=== PATIENT | male | born 1935 | race Caucasian/White ===

== ENCOUNTER 2020-10-24 09:50 | Outpatient (REF) | payer MEDICARE, SELFPAY ==
--- NOTE | 2020-10-24 | US_ITS ---
EXAMINATION: US EXTRACRANIAL CAROTID DUPLEX, BILATERAL CLINICAL INFORMATION: This is an 85-year-old male with occlusion/stenosis of the carotid arteries. Carotid artery disease. COMPARISON: Comparison is made to a previous study dated 05/12/2018 which demonstrates bilateral 50-79% internal carotid artery stenoses. TECHNIQUE: Real-time ultrasound and Doppler techniques (integrating B-mode 2-D vascular images, Doppler spectral analysis and color-flow Doppler imaging) were utilized to interrogate the extracranial carotid arteries, the vertebral arteries and proximal subclavian arteries bilaterally. The degree of stenosis is determined by criteria similar to NASCET. FINDINGS: Right Side: 1. There is moderate atherosclerotic plaque seen in the bifurcation/proximal ICA region. 2. The common carotid artery PSV proximally is 103 cm/s and distally 80 cm/s. 3. The proximal internal carotid artery velocities are 137 cm/s systolic and 16 cm/s diastolic. 4. The proximal external carotid artery PSV is 280 cm/s. 5. The vertebral artery shows antegrade flow. 6. The subclavian artery waveforms are normal. Left Side: 1. There is moderate atherosclerotic plaque seen in the bifurcation/proximal ICA region. 2. The common carotid artery PSV proximally is 87 cm/s and distally 150 cm/s. 3. The proximal internal carotid artery velocities are 144 cm/s systolic and 31 cm/s diastolic. 4. The proximal external carotid artery PSV is 150 cm/s. 5. The vertebral artery shows antegrade flow. 6. The subclavian artery waveforms are stenotic with an elevated velocity of 257 cm/s. US/US carotid duplex BI IMPRESSION: 1. RIGHT: Moderate, hemodynamically significant stenosis of the proximal right internal carotid artery corresponding to a 50-79% stenosis by velocity criteria. 2. LEFT: Moderate, hemodynamically significant stenosis of the proximal left internal carotid artery corresponding to a 50-79% stenosis by velocity criteria. 3. There is no change in the category severity of internal carotid artery disease when compared to the previous study dated 05/12/2018. 4. Again noted is the hemodynamically significant stenosis in the right external carotid artery. 5. There appears to be a new left subclavian artery stenosis but both vertebral arteries are antegrade.
== END 2020-10-24 09:51 | disposition home or self-care (01) ==
LOC: HO.US 09:50
PROVIDERS: PCP Internal Medicine; Visit Provider Internal Medicine
DX: I65.23 Occlusion and stenosis of bilateral carotid arteries (principal)
CPT/HCPCS: 93880

== ENCOUNTER 2021-02-17 09:43 | Outpatient (REF) | payer MEDICARE, SELFPAY ==
--- NOTE | ~2021-02-17 | XR_ITS ---
EXAMINATION: XR CHEST CLINICAL INFORMATION: Shortness of breath. COMPARISON: 04/06/2020 TECHNIQUE: 2 views of the chest were obtained. FINDINGS: Stable cardiomediastinal silhouette. Mild bronchial wall thickening. No focal consolidation. No effusion or edema. No pneumothorax is seen. Left reverse total shoulder arthroplasty. Thoracic spine degeneration. XR/XR chest 2V IMPRESSION: Bronchial wall thickening can be seen with a small airway process such as asthma or atypical/viral infections. No lobar consolidation.
== END 2021-02-17 09:44 | disposition home or self-care (01) ==
LOC: HO.XRAY 09:43
PROVIDERS: PCP Internal Medicine; Visit Provider Internal Medicine
DX: R06.02 Shortness of breath (principal)
CPT/HCPCS: 71046

== ENCOUNTER → 2021-02-22 10:12 | Outpatient (BNVA) | payer MEDICARE, SELFPAY | PROVIDERS: PCP Internal Medicine; Referring Provider Internal Medicine; Visit Provider Internal Medicine Cardiovascular Disease | DX: R06.02 Shortness of breath (principal); I73.9 Peripheral vascular disease, unspecified | CPT/HCPCS: 93005; 99202 ==

== ENCOUNTER → 2021-02-23 10:11 | Outpatient (REF) | payer MEDICARE, SELFPAY ==
--- NOTE | 2021-02-23 10:17 | CA_ITS ---
Transthoracic Echocardiogram Patient (Last, First, Middle): Too Young M Gender: Male Date of : 1935 Age: 85 Procedure Date: 02/23/2021 Procedure Type: Transthoracic Echocardiogram Location: OP Height: 172.72 cm Weight: 74.84 kg BSA: 1.88 m2 Heart Rate: bpm BP: 122 / 58 mmHg Hydrometer Tester: BRANDIE Referring MD: John Gutierrez MD Symptoms: R06.02 - Shortness of breath Study Quality: Fair ECG Rhythm: Sinus Conclusions: - The left ventricular systolic function is normal. The visually estimated ejection fraction is between 60-65%. - There is mild mitral annular calcification. Findings Left Ventricle Normal left ventricular cavity size. There is normal left ventricular wall thickness. The left ventricular systolic function is normal. The visually estimated ejection fraction is between 60-65%. There is no evidence of regional wall motion abnormalities. E/E prime ratio is between 8 and 15 consistent with indeterminate filling pressures. Evidence suggests grade I (mild) diastolic dysfunction. Right Ventricle Normal right ventricular cavity size and systolic function. Atria The left atrium is normal in size. The right atrium is normal in size. Aortic Valve The aortic valve was not well visualized. There is no aortic valve stenosis. There is trace (trivial) aortic valve regurgitation. Mitral Valve There is mild mitral annular calcification. There is no mitral valve regurgitation. There is no mitral valve stenosis. Pulmonic Valve The pulmonic valve was not well visualized. Tricuspid Valve Normal tricuspid valve structure. There is trace tricuspid valve regurgitation. The pulmonary artery systolic pressure is normal. Great Vessels The aorta was not well visualized. Venous The inferior vena cava is normal in size and collapses greater than 50% with inspiration. Pericardium/Pleural There is no evidence of pericardial effusion. Prior Study Comparison No significant change compared to prior study dated: 06/26/2017. Measurements 2D Linear Measurements IVSd: 0.80 0.6-0.9/0.6-1.0 cm LVIDd: 3.91 3.9-5.3/4.2-5.9 cm LVIDd Index: 2.08 2.4-3.2/2.2-3.1 cm/m2 LVIDs: 1.85 2.0-3.6 cm LVPWd: 0.99 0.7-1.1 cm Ao Root: 2.80 2.1-3.5 cm LA Diam: 3.10 2.7-3.8/3.0-4.0 cm LAIDs Index: 1.65 1.5-2.3 cm/m2 LV Mass: 129.93 67-162/88-224 g LV Mass Index: 69.11 43-95/49-115 g/m2 LVOT Diam: 2.00 3.0+(-)1.3 cm 2D Systolic Function EF 4C: 71.90 >55% EF 2C: 51.60 >55% EF BiP: 62.50 >55% Mitral Valve MV Pk E: 0.86 MV PK A: 1.10 MV Decel Time: 303.00 E/A: 0.80 E'Lateral: 8.81 E'Medial: 5.87 E/E' Med: 14.60 E/E' Lat: 9.80 PHT: 89.00 MVA PHT: 2.47 Decel [place]: 2.84 Aortic Valve AoV Pk Camilo: 1.76 AoV Mn Camilo: 1.25 AoV VTI: 0.39 AoV Pk Grad: 12.00 Aov Mn Grad: 7.00 MONIQUE Cont.VTI: 2.10 AI Pk Camilo: 2.81 AI [place]: 1.07 LVOT LVOT Pk Camilo: 1.06 LVOT Mn Camilo: 0.82 LVOT VTI: 0.26 LVOT Pk Grad: 4.00 LVOT Mn Grad: 3.00 LVOT Diam: 2.00 LVOT Area: 3.14 Diastolic Function MV Pk E: 0.86 MV Pk A: 1.10 E/A: 0.80 E'Medial: 5.87 E/E' Med: 14.60 E' Laterial: 8.81 E/E' Lat: 9.80 Tricuspid Valve RA Press: 3.00 Great Vessels Aorta Ao Root-2D: 2.80 2.0-3.7 cm Ao Asc: 2.30 2.1-3.4 cm Updated in Other Vendor System with Status of Final Jose Christy MD electronically signed on 02/24/2021 3:53:42 PM with status of Final
== END ==
LOC: HO.CARD 10:11
PROVIDERS: Visit Provider Internal Medicine Cardiovascular Disease
DX: R06.02 Shortness of breath (principal)
CPT/HCPCS: 93306

== ENCOUNTER → 2021-03-03 08:22 | Outpatient (REF) | payer MEDICARE, SELFPAY ==
--- NOTE | ~2021-03-03 | NM_ITS ---
Lexiscan Myocardial perfusion study Indication: Shortness of breath, fatigue, assess for coronary disease and ischemia Technique: The patient was brought in for a Lexiscan perfusion study on 03/03/2021 and was injected 0.4 mg of Lexiscan intravenously. Within a minute of this injection 17 mCi of sestamibi was given intravenously. Images were obtained using the SPECT gamma camera interlaced with the gating device. Images were obtained in supine position. Resting perfusion study was performed on 03/06/2021. Patient was administered 25 mCi of sestamibi intravenously at rest. Images were then obtained in supine position. Total DLP 98mGy-cm. Images were processed with the software and compared side to side in short axis, horizontal long axis and vertical long axis views. Findings: Raw acquisition was reviewed. Both arms by the patient's side. The stress perfusion study showed no significant perfusion abnormality. Both uncorrected as well as CT attenuation corrected images were reviewed. The gated study shows normal LV systolic function with calculated LVEF of 66%. LV cavity is normal in size. The gated study shows normal wall thickening and contraction of segments. Resting study shows no significant perfusion abnormality. Gating at rest reveals normal wall motion with ejection fraction at 61%. The findings are consistent with no reversible or fixed perfusion abnormality. MI/NM cardiolite stress test Impression: 1. Myocardial perfusion imaging study shows normal myocardial perfusion. No evidence of any ischemia or infarction. 2. Gated LVEF is 66% during stress and 61% during rest. 3. Transient ischemic dilatation not present. EKG component of the test reported separately.
--- NOTE | 2021-03-03 08:30 | CA_ITS ---
Acquisition Time: 2021-03-03 08:43:34 Total Exercise Time: 00:02:00 Test Indications: Dyspnea Medications: ASA ATORVASTATIN CITALOPRAM LISINOPRIL OMEPRAZOLE Protocol: LEXISCAN Max HR: 088 BPM 64% of Pred: 136 BPM Max BP: 124/078 mmHG Max Work Load: 1.0 METS Pharmacological stress test using Lexiscan while sitting and kicking his feet. Pt tolerated well, denies any anginal sx. EKG without arrhythmias, non-diagnostic for ischemia. Nuclear images to follow. Normotensive response to test. Test reviewed with Dr. Escalona. Referred By: John Gutierrez Overread By: Karla Ann NP
== END ==
LOC: HO.CARD 08:22
PROVIDERS: Visit Provider Internal Medicine Cardiovascular Disease
DX: R07.9 Chest pain, unspecified (principal); R06.02 Shortness of breath
CPT/HCPCS: 78452; 93016; 93017; 93018; J0280; J2785

== ENCOUNTER 2021-03-30 11:01 | Outpatient (REF) | payer MEDICARE, SELFPAY ==
[2021-03-30 11:29] LABS: Estimated Average Glucose 126 mg/dL
[2021-03-30 12:06] LABS: Alanine Aminotransferase 12 U/L (0-40); Albumin Level 4.1 g/dL (3.5-5.0); Alkaline Phosphatase 101 U/L (39-117); Aspartate Amino Transferase 20 U/L (5-37); Bilirubin Direct 0.3 mg/dL (0.0-0.5); Bilirubin Total 0.6 mg/dL (0.0-1.0); Cholesterol 123 mg/dL; Glucose Fasting 115 mg/dL (60-99); HDL Cholesterol 46 mg/dL; LDL Cholesterol Calculated 66 mg/dl; Total Protein 6.8 g/dL (6.5-8.0); Triglycerides 57 mg/dL
[2021-03-30 12:25] LABS: Reflex LDLD? No
== END 2021-03-30 11:02 | disposition home or self-care (01) ==
LOC: HO.LNP 11:01
PROVIDERS: Visit Provider Internal Medicine
DX: Z13.89 Encounter for screening for other disorder (principal)
CPT/HCPCS: 80061; 80076; 82947; 83036

== ENCOUNTER 2021-03-30 13:25 | Outpatient (REF) | payer MEDICARE, SELFPAY ==
--- NOTE | ~2021-03-30 | US_ITS ---
EXAMINATION: US DOPPLER LOWER EXTREMITY ARTERIAL DUPLEX BILATERAL CLINICAL INFORMATION: Coronary artery disease. COMPARISON: None TECHNIQUE: Grayscale, color Doppler, spectral Doppler evaluation of the bilateral lower extremity arteries. FINDINGS: RIGHT: Multifocal atherosclerosis. Mid SFA collaterals are seen on the right. Common femoral: Mild stenosis. PSV 275 centimeters per second. Triphasic waveform. Deep femoral: Moderate stenosis. PSV 233 centimeters per second. Biphasic waveform. Proximal superficial femoral: Severe stenosis. PSV 684 centimeters per second. Monophasic waveform. Mid superficial femoral: Moderate stenosis. PSV 210 centimeters per second. Monophasic waveform. Distal superficial femoral: Moderate stenosis. PSV 70 centimeters per second. Monophasic waveform. Popliteal: PSV 247 centimeters per second. Monophasic waveform. Posterior tibial: PSV 30 centimeters per second. Monophasic waveform. LEFT: Multifocal atherosclerosis. Common femoral: Mild stenosis PSV 164 centimeters per second. Triphasic waveform. Deep femoral: Moderate stenosis. PSV 254 centimeters per second. Monophasic waveform. Proximal superficial femoral: Severe stenosis. PSV 649 centimeters per second. Monophasic waveform. Mid superficial femoral: Moderate stenosis. PSV 281 centimeters per second. Monophasic waveform. Distal superficial femoral: PSV 94 centimeters per second. Monophasic waveform. Popliteal: PSV 119 centimeters per second. Monophasic waveform. Posterior tibial: PSV 29 centimeters per second. Monophasic waveform. US/US arterial duplex LE IMPRESSION: Hemodynamically significant SFA disease bilaterally.
== END 2021-03-30 13:26 | disposition home or self-care (01) ==
LOC: HO.US 13:25
PROVIDERS: Visit Provider Internal Medicine Cardiovascular Disease
DX: I73.9 Peripheral vascular disease, unspecified (principal); I25.10 Atherosclerotic heart disease of native coronary artery without angina pectoris
CPT/HCPCS: 80061; 80076; 82947; 83036; 93925

== ENCOUNTER → 2021-04-03 14:13 | Outpatient (BNVA) | payer MEDICARE, SELFPAY | PROVIDERS: PCP Internal Medicine; Visit Provider Surgery Vascular Surgery | DX: I73.9 Peripheral vascular disease, unspecified (principal); I77.9 Disorder of arteries and arterioles, unspecified | CPT/HCPCS: 99202 ==

== ENCOUNTER → 2021-05-15 11:15 | Outpatient (BNVA) | payer MEDICARE, SELFPAY | PROVIDERS: PCP Internal Medicine; Visit Provider Internal Medicine Pulmonary Disease | DX: J44.9 Chronic obstructive pulmonary disease, unspecified (principal); R06.02 Shortness of breath; I10 Essential (primary) hypertension; Z87.891 Personal history of nicotine dependence; Z99.81 Dependence on supplemental oxygen | CPT/HCPCS: 99202 ==

== ENCOUNTER 2021-05-19 12:55 | Outpatient (REF) | payer MEDICARE, SELFPAY ==
--- NOTE | 2021-05-19 17:43 | PFT_ITS ---
INDICATION: Shortness of breath. SPIROMETRY: The FEV1 to FVC of 51% with an FEV1 of 1.49 L, which is 61% predicted, an FVC of 2.93 L, which is 84% predicted. No significant response to bronchodilators noted. Maximum voluntary ventilation 55% predicted. LUNG VOLUMES: Total lung capacity 87% predicted with a residual volume of 110% predicted. DIFFUSION CAPACITY: DLCO noted to be at 28% predicted. COMPARISON: Not available. INTERPRETATION: There is an obstructive ventilatory defect consistent with moderate COPD. No significant response to bronchodilators noted. Moderate decrease in maximum voluntary ventilation secondary to likely deconditioning. Lung volumes are within normal limits, although low normal. In addition to that, the patient does have a severe diffusion impairment likely secondary to emphysema and/or other parenchymal lung conditions. Pulmonary vascular conditions should also be considered. Clinical correlation warranted. MD KENNETH Garcia/MODL / [id number]
== END 2021-05-19 12:56 | disposition home or self-care (01) ==
LOC: HO.RESP 12:55
PROVIDERS: PCP Internal Medicine; Visit Provider Internal Medicine Pulmonary Disease
DX: R06.02 Shortness of breath (principal)
CPT/HCPCS: 94060; 94727; 94729

== ENCOUNTER → 2021-06-20 10:54 | Outpatient (BNVA) | payer MEDICARE, SELFPAY | PROVIDERS: PCP Internal Medicine; Visit Provider Internal Medicine Pulmonary Disease | DX: J44.9 Chronic obstructive pulmonary disease, unspecified (principal); Z99.81 Dependence on supplemental oxygen | CPT/HCPCS: 99212 ==

== ENCOUNTER 2021-07-20 10:11 | Outpatient (REF) | payer MEDICARE, SELFPAY ==
--- NOTE | ~2021-07-20 | CT_ITS ---
EXAMINATION: CT CHEST WITHOUT CONTRAST CLINICAL INFORMATION: Hypoxia and shortness of breath COMPARISON: Previous chest x-ray most recent January 2021 TECHNIQUE: Multidetector volumetric CT imaging of the chest was done. Axial MIP volume rendering provided. Sagittal and coronal reformatted images were obtained. This CT examination was performed using dose optimization techniques as appropriate, variously including the following: *Automated exposure control *Adjustment of mA and/or kV according to patient size (this includes techniques or standardized protocols for targeted exams where dose is matched to indication/reason for exam; i.e. extremities or head) *Use of iterative reconstruction technique DLP: 222 mGy-cm FINDINGS: LUNGS: There is mild biapical pleural and parenchymal scarring and calcification. There is evidence of mild interstitial lung disease with increased peripheral reticulation seen at the lung bases. The lungs are otherwise clear. No evidence of emphysema or bronchiectasis. No endobronchial or endotracheal lesion. MEDIASTINUM: Mild coronary artery calcification. The mediastinum is otherwise normal. PLEURA: There is no pleural effusion. No pleural mass or thickening. AXILLA: No lymphadenopathy. UPPER ABDOMEN: There are small calcifications in the upper pole of the right kidney questionable for vascular calcifications versus small stones. OSSEOUS STRUCTURES: There are degenerative changes of the spine. There is a left shoulder replacement. CT/CT chest wo con IMPRESSION: Mild peripheral interstitial lung disease at the lung bases.
== END 2021-07-20 10:12 | disposition home or self-care (01) ==
LOC: HO.CT 10:11
PROVIDERS: PCP Internal Medicine; Visit Provider Internal Medicine Pulmonary Disease
DX: R09.02 Hypoxemia (principal); R06.02 Shortness of breath
CPT/HCPCS: 71250

== ENCOUNTER → 2021-08-01 13:37 | Outpatient (BNVA) | payer MEDICARE, SELFPAY | PROVIDERS: PCP Internal Medicine; Visit Provider Internal Medicine Pulmonary Disease ==

== ENCOUNTER 2021-10-02 10:13 | Outpatient (REF) | payer MEDICARE, SELFPAY ==
[2021-10-02 10:16] LABS: MANUAL DIFF FLAG NO
[2021-10-02 10:55] LABS: Basophils Absolute Auto 0.1 X10*3/uL (0.0-0.2); Basophils Percent Auto 0.9 % (0-2); Eosinophils Absolute Auto 0.8 X10*3/uL (0.0-0.4); Eosinophils Percent Auto 8.9 % (0-4); Hematocrit 36.1 % (42.0-52.0); Hemoglobin 10.5 g/dl (14.0-18.0); Imm Gran Abs Auto 0.02 X10*3/uL (0.00-0.03); Imm Gran Pct Auto 0.2 % (0.0-0.4); Lymphocytes Absolute Auto 1.6 X10*3/uL (1.2-4.9); Lymphocytes Percent Auto 17.2 % (20-40); Mean Corpuscular HGB Conc 29.1 g/dl (31.0-36.0); Mean Corpuscular Hemoglobin 24.2 pg (27.0-33.0); Mean Corpuscular Volume 83.4 fL (80.0-98.0); Mean Platelet Volume 11.7 fL (9.4-12.4); Monocytes Absolute Auto 0.8 X10*3/uL (0.1-1.2); Monocytes Percent Auto 8.9 % (2-11); Neutrophils Absolute Auto 5.8 x10*3/uL (2.0-8.3); Neutrophils Percent Auto 63.9 % (45-73); Platelet Count 245 X10*3/uL (160-400); Red Blood Count 4.33 X10*6/uL (4.60-5.80); Red Cell Distribution Width 14.5 % (11.0-16.0); White Blood Count 9.1 X10*3/uL (4.8-10.8)
[2021-10-02 11:04] LABS: Estimated Average Glucose 131 mg/dL; Hemoglobin A1c % 6.2 %
[2021-10-02 11:18] LABS: Alanine Aminotransferase 13 U/L (0-40); Alkaline Phosphatase 84 U/L (39-117); Anion Gap 11 (12-20); Aspartate Amino Transferase 18 U/L (5-37); Bilirubin Total 0.5 mg/dL (0.0-1.0); Blood Urea Nitrogen 20 mg/dL (9-16); Calcium 9.2 mg/dL (8.4-10.2); Carbon Dioxide 23 mmol/L (22-29); Chloride 110 mmol/L (96-108); Cholesterol 113 mg/dL; Estimated Glomerular Filt Rate 43; Glucose Fasting 104 mg/dL (60-99); HDL Cholesterol 39 mg/dL; LDL Cholesterol Calculated 62 mg/dl; Potassium 4.3 mmol/L (3.3-5.1); Sodium 140 mmol/L (135-145); Total Protein 6.8 g/dL (6.5-8.0); Triglycerides 61 mg/dL
[2021-10-02 11:46] LABS: PSA,Total (Free>4and<10) 0.82 ng/mL (0.00-4.00); Reflex LDLD? No
[2021-10-02 15:51] LABS: Iron 27 mcg/dL (45-160); Percent Iron Saturation 9 % (15-50); Total Iron Binding Capacity 314 mcg/dL (228-428); Unsaturated Iron Binding 287 ug/dL
== END 2021-10-02 10:14 | disposition home or self-care (01) ==
LOC: HO.LNP 10:13
PROVIDERS: PCP Internal Medicine; Visit Provider Internal Medicine
DX: Z12.5 Encounter for screening for malignant neoplasm of prostate (principal); D64.9 Anemia, unspecified; I10 Essential (primary) hypertension; R73.03 Prediabetes; E78.00 Pure hypercholesterolemia, unspecified
CPT/HCPCS: 80053; 80061; 83036; 83540; 84153; 85025

== ENCOUNTER 2022-04-10 11:00 | Outpatient (REF) | payer MEDICARE, SELFPAY ==
[2022-04-10 13:06] LABS: Alanine Aminotransferase 12 U/L (0-40); Alkaline Phosphatase 81 U/L (39-117); Aspartate Amino Transferase 17 U/L (5-37); Bilirubin Direct 0.3 mg/dL (0.0-0.5); Bilirubin Total 0.5 mg/dL (0.0-1.0); Cholesterol 117 mg/dL; Glucose Fasting 97 mg/dL (60-99); HDL Cholesterol 46 mg/dL; LDL Cholesterol Calculated 61 mg/dl; Total Protein 6.9 g/dL (6.5-8.0); Triglycerides 53 mg/dL
[2022-04-10 13:47] LABS: Estimated Average Glucose 131 mg/dL; Hemoglobin A1c % 6.2 %
[2022-04-10 13:49] LABS: Reflex LDLD? No
== END 2022-04-10 11:01 | disposition home or self-care (01) ==
LOC: HO.LNP 11:00
PROVIDERS: PCP Internal Medicine; Visit Provider Internal Medicine
DX: E78.00 Pure hypercholesterolemia, unspecified (principal); R73.03 Prediabetes
CPT/HCPCS: 80061; 80076; 82947; 83036

== ENCOUNTER 2022-04-17 14:55 | Outpatient (REF) | payer MEDICARE, SELFPAY ==
[2022-04-17 15:43] LABS: COVID-19 Test Negative (Negative)
== END 2022-04-17 14:56 | disposition home or self-care (01) ==
LOC: HO.LAB 14:55
PROVIDERS: Visit Provider Internal Medicine
DX: Z20.822 Contact with and (suspected) exposure to COVID-19 (principal)
CPT/HCPCS: 87635; C9803

== ENCOUNTER 2022-05-15 14:12 | Outpatient (REF) | payer MEDICARE, SELFPAY ==
--- NOTE | ~2022-05-15 | XR_ITS ---
EXAMINATION: XR CERVICAL SPINE CLINICAL INFORMATION: Neck pain COMPARISON: None TECHNIQUE: 3 views of the cervical spine were obtained. FINDINGS: No acute fracture or subluxation. Vertebral body heights are maintained. Slight anterolisthesis of C3 on C4 and C4 on C5, appearing degenerative. Lamina otherwise maintained. There is vertebral body osseous fusion at C5-C6. There is disc space narrowing of C6-C7. Endplate osteophytes are present with facet arthropathy. The atlantoaxial joint is well aligned. The dens is intact. The prevertebral soft tissues are unremarkable. The lung apices are clear. XR/XR cervical spine 3V IMPRESSION: Moderate degenerative changes of the cervical spine.
== END 2022-05-15 14:13 | disposition home or self-care (01) ==
LOC: HO.XRAY 14:12
PROVIDERS: PCP Internal Medicine; Visit Provider Internal Medicine
DX: M54.2 Cervicalgia (principal)
CPT/HCPCS: 72040

== ENCOUNTER → 2022-06-12 13:55 | Outpatient (BNVA) | payer MEDICARE, SELFPAY | PROVIDERS: PCP Internal Medicine; Visit Provider Internal Medicine | DX: J44.9 Chronic obstructive pulmonary disease, unspecified (principal); Z99.81 Dependence on supplemental oxygen; Z79.899 Other long term (current) drug therapy; Z79.01 Long term (current) use of anticoagulants | CPT/HCPCS: 99212 ==

== ENCOUNTER → 2022-08-27 10:00 | Outpatient (REF) | payer MEDICARE, SELFPAY ==
--- NOTE | ~2022-08-27 | NM_ITS ---
EXAMINATION: NM BONE SCAN OF THE WHOLE BODY CLINICAL INFORMATION: Malignant neoplasm of prostate. COMPARISON: The previous bone scan dated 01/25/2011 is available for comparison. Radiographs of the cervical spine dated 05/15/2022 and of the chest dated 06/29/2022 are available for comparison. CT scan of the chest dated 07/20/2021 is also available for comparison. TECHNIQUE: Multiple gamma scintillation camera images of the whole body were performed 2.75 hours following the intravenous administration of 27 mCi Tc-99m MDP. FINDINGS: In the head, no significant abnormalities are present. In the thoracic cage and upper extremities, there is mildly increased activity in the right sternoclavicular and right acromioclavicular joint and there is also mildly increased activity in the right glenohumeral articulation. A photopenic defect from a left shoulder prosthesis is noted and appears unremarkable. In the spine, a minimal thoracolumbar scoliosis is present with lumbar convexity to the left. In the pelvis, no significant abnormalities are present. In the lower extremities, there is mildly increased activity in the patellar compartments of both knees and faintly in the right greater femoral trochanter. There is also mildly increased activity in the right first metatarsophalangeal joint. No other definite bony abnormalities are noted. The urinary bladder and faint visualization of both kidneys are noted. Compared to the previous bone scan dated 01/25/2011, the abnormalities in the knees, right foot and right greater femoral trochanter are new. The left shoulder prosthesis is also new. The remainder the scan is not significantly changed. [place] bone scan whole body IMPRESSION: A few mild nonspecific abnormalities are noted as described above and these are all likely arthritic or traumatic in etiology. None of these abnormalities is strongly suspicious for metastatic disease.
== END ==
LOC: HO.NUCMED 10:00
PROVIDERS: Visit Provider Internal Medicine
DX: C61 Malignant neoplasm of prostate (principal)
CPT/HCPCS: 78306; A9503

== ENCOUNTER 2022-10-04 11:04 | Outpatient (REF) | payer MEDICARE, SELFPAY ==
[2022-10-04 11:08] LABS: MANUAL DIFF FLAG NO
[2022-10-04 11:55] LABS: Basophils Absolute Auto 0.1 X10*3/uL (0.0-0.2); Eosinophils Absolute Auto 0.9 X10*3/uL (0.0-0.4); Eosinophils Percent Auto 7.8 % (0-4); Hematocrit 33.2 % (42.0-52.0); Hemoglobin 9.4 g/dl (14.0-18.0); Imm Gran Abs Auto 0.03 X10*3/uL (0.00-0.03); Imm Gran Pct Auto 0.3 % (0.0-0.4); Lymphocytes Absolute Auto 1.9 X10*3/uL (1.2-4.9); Lymphocytes Percent Auto 17.3 % (20-40); Mean Corpuscular HGB Conc 28.3 g/dl (31.0-36.0); Mean Corpuscular Hemoglobin 21.4 pg (27.0-33.0); Mean Corpuscular Volume 75.5 fL (80.0-98.0); Mean Platelet Volume 11.3 fL (9.4-12.4); Monocytes Percent Auto 8.6 % (2-11); Neutrophils Absolute Auto 7.3 x10*3/uL (2.0-8.3); Platelet Count 340 X10*3/uL (160-400); Red Cell Distribution Width 16.2 % (11.0-16.0); White Blood Count 11.2 X10*3/uL (4.8-10.8)
[2022-10-04 11:58] LABS: Appearance Urine Clear; Color Urine Yellow; Glucose Urine UA Negative (Negative); Leukocyte Esterase Urine Negative (Negative); Nitrite Urine Negative (Negative); PH 5.5 (5.0-9.0); Specific Gravity - Urine 1.025 (1.005-1.025); Urine Blood Negative (Negative); Urine Ketones Negative (Negative); Urine Protein Trace mg/dL (Neg-Trace)
[2022-10-04 12:04] LABS: Bacteria Urine None Seen (None Seen); Estimated Average Glucose 126 mg/dL; Hyaline Casts Urine 0-2 /LPF (0-2); RBC Urine 0-2 /HPF (0-2); Squamous Epithelial Cell Urine 0-2 /HPF (0-2); WBC Urine 0-5 /HPF (0-5)
[2022-10-04 12:42] LABS: Creatinine Urine 175.12 mg/dL; Microalbum/Creatinine Ratio Ur 34.2 ug/mg cr
[2022-10-04 14:04] LABS: Alanine Aminotransferase 13 U/L (0-40); Albumin Level 4.3 g/dL (3.5-5.0); Alkaline Phosphatase 70 U/L (39-117); Anion Gap 11 (12-20); Aspartate Amino Transferase 19 U/L (5-37); Bilirubin Total 0.6 mg/dL (0.0-1.0); Blood Urea Nitrogen 20 mg/dL (9-16); Calcium 9.2 mg/dL (8.4-10.2); Carbon Dioxide 23 mmol/L (22-29); Chloride 110 mmol/L (96-108); Cholesterol 125 mg/dL; Estimated Glomerular Filt Rate 47; Glucose Fasting 111 mg/dL (60-99); HDL Cholesterol 52 mg/dL; Iron 14 mcg/dL (45-160); LDL Cholesterol Calculated 65 mg/dl; Percent Iron Saturation 5 % (15-50); Potassium 4.4 mmol/L (3.3-5.1); Prostate Specific Antigen 1.04 ng/mL (<0.05-4.0); Sodium 140 mmol/L (135-145); Total Iron Binding Capacity 300 mcg/dL (228-428); Total Protein 6.8 g/dL (6.5-8.0); Triglycerides 44 mg/dL; Unsaturated Iron Binding 286 ug/dL
== END 2022-10-04 11:05 | disposition home or self-care (01) ==
LOC: HO.LNP 11:04
PROVIDERS: Visit Provider Internal Medicine
DX: Z12.5 Encounter for screening for malignant neoplasm of prostate (principal); D64.9 Anemia, unspecified; I10 Essential (primary) hypertension; E78.00 Pure hypercholesterolemia, unspecified; R73.03 Prediabetes
CPT/HCPCS: 80053; 80061; 81001; 82043; 83036; 83540; 84153; 85025

== ENCOUNTER 2022-10-23 15:48 | Outpatient (REF) | payer MEDICARE, SELFPAY ==
[2022-10-23 16:39] LABS: Iron 15 mcg/dL (45-160); Percent Iron Saturation 6 % (15-50); Total Iron Binding Capacity 253 mcg/dL (228-428); Unsaturated Iron Binding 238 ug/dL
== END 2022-10-23 15:49 | disposition home or self-care (01) ==
LOC: HO.LNP 15:48
PROVIDERS: Visit Provider Internal Medicine
DX: D50.9 Iron deficiency anemia, unspecified (principal)
CPT/HCPCS: 83540

== ENCOUNTER 2022-12-28 11:24 | Outpatient (REF) | payer MEDICARE, SELFPAY ==
[2022-12-28 11:29] LABS: MANUAL DIFF FLAG NO
[2022-12-28 11:53] LABS: Basophils Absolute Auto 0.1 X10*3/uL (0.0-0.2); Basophils Percent Auto 1.2 % (0-2); Eosinophils Absolute Auto 1.4 X10*3/uL (0.0-0.4); Hematocrit 41.7 % (42.0-52.0); Hemoglobin 12.2 g/dl (14.0-18.0); Imm Gran Abs Auto 0.03 X10*3/uL (0.00-0.03); Imm Gran Pct Auto 0.3 % (0.0-0.4); Lymphocytes Absolute Auto 1.5 X10*3/uL (1.2-4.9); Lymphocytes Percent Auto 13.5 % (20-40); Mean Corpuscular HGB Conc 29.3 g/dl (31.0-36.0); Mean Corpuscular Hemoglobin 23.6 pg (27.0-33.0); Mean Corpuscular Volume 80.7 fL (80.0-98.0); Monocytes Percent Auto 8.7 % (2-11); Neutrophils Absolute Auto 7.2 x10*3/uL (2.0-8.3); Neutrophils Percent Auto 64.3 % (45-73); Platelet Count 274 X10*3/uL (160-400); Red Blood Count 5.17 X10*6/uL (4.60-5.80); Red Cell Distribution Width 22.4 % (11.0-16.0); White Blood Count 11.2 X10*3/uL (4.8-10.8)
[2022-12-28 12:59] LABS: Blood Urea Nitrogen 14 mg/dL (9-16); Estimated Glomerular Filt Rate 44; Iron 41 mcg/dL (45-160); Percent Iron Saturation 15 % (15-50); Total Iron Binding Capacity 267 mcg/dL (228-428); Unsaturated Iron Binding 226 ug/dL
== END 2022-12-28 11:25 | disposition home or self-care (01) ==
LOC: HO.LNP 11:24
PROVIDERS: Visit Provider Internal Medicine
DX: Z01.812 Encounter for preprocedural laboratory examination (principal); D50.9 Iron deficiency anemia, unspecified
CPT/HCPCS: 82565; 83540; 84520; 85025

== ENCOUNTER 2023-01-12 14:51 | Emergency (ER) | payer MEDICARE, SELFPAY ==
--- NOTE | ~2023-01-12 | XR_ITS ---
EXAMINATION: XR CHEST CLINICAL INFORMATION: Heart palpitations COMPARISON: CT from 07/20/2021 TECHNIQUE: Frontal view of the chest was obtained. FINDINGS: Heart is normal in size. Chronic hyperexpansion of the lung parenchyma with interstitial prominence consistent with emphysema seen in the lung parenchyma. Hazy opacities seen in the left lung apex. XR/XR chest 1V IMPRESSION: Hazy opacity in the left upper lobe. Emphysema
--- NOTE | 2023-01-12 15:17 | ED_ITS ---
HPI - General Adult General Chief complaint: Arrhythmia/Palpitations <CHEYANNE Armijo - Last Filed: 01/12/23 15:23> Stated complaint: shaking <CHEYANNE Armijo - Last Filed: 01/12/23 15:23> Time Seen by Provider: 01/12/23 21:00 <CHEYANNE Armijo - Last Filed: 01/12/23 15:23> Source: patient <Manny Tapia MD - Last Filed: 01/12/23 21:42> Limitations: no limitations <Manny Tapia MD - Last Filed: 01/12/23 21:42> History of Present Illness HPI narrative: 87-year-old male with hypertension, carotid artery disease, COPD on chr onic oxygen, intermittent claudication presents with a sensation of vibration in his belly. Started today around 3:00 this afternoon. Describes the symptoms as mild to moderate. There is no clear relieving or exacerbating features. He denies any chest pain, new shortness breath, cough, increase in his chronic mucus production. He denied any swelling in his legs. Denied any palpitations or lightheadedness. The symptoms lasted approximately 1-2 hours. He came to the emergency department shortly after the onset of symptoms. He denies any fevers or chills. No urinary frequency, urgency or dysuria. No nausea, vomiting, diarrhea. Symptoms have since resolved. Otherwise, currently feels well. He is on oxygen at home. His normal oxygen saturation is similar around 92% on oxygen <Manny Tapia MD - Last Filed: 01/12/23 21:42> Related Data Home medications: Home Medications Medication Instructions Recorded Confirmed aspirin 81 mg tablet,delayed 81 mg PO DAILY 02/22/21 02/22/21 release (Adult Low Dose Aspirin) atorvastatin 10 mg tablet 10 mg PO DAILY 02/22/21 02/22/21 citalopram 20 mg tablet 20 mg PO DAILY 02/22/21 02/22/21 fluticasone propionate 50 1 spray intranasal DAILY 02/22/21 02/22/21 mcg/actuation nasal spray,suspension lisinopril 5 mg tablet 5 mg PO DAILY 02/22/21 02/22/21 omeprazole 20 mg capsule,delayed 20 mg PO DAILY 02/22/21 02/22/21 release apixaban 5 mg tablet (Eliquis) 5 mg PO BID 06/12/22 Previous Rx's Medication Instructions Recorded umeclidinium 62.5 mcg-vilanterol 1 inh inhalation DAILY 30 days #1 05/15/21 25 mcg/actuation powdr for ea inhalation (Anoro Ellipta) albuterol sulfate 90 mcg/actuation 2 puff inhalation Q4-6H PRN 06/12/22 aerosol inhaler (ProAir HFA) shortness of breath or wheezing 60 days #6.7 grams azithromycin 250 mg tablet 250 mg PO DAILY 4 days #4 tabs 01/12/23 <CHEYANNE Armijo - Last Filed: 01/12/23 15:23> Allergies/adverse reactions: Allergies Allergy/AdvReac Type Severity Reaction Status Date / Time No Known Allergies Allergy Unknown NOT Verified 06/12/22 14:19 APPLICABLE <CHEYANNE Armijo - Last Filed: 01/12/23 15:23> [facility] Past Medical History Medical History: Medical History Bilateral carotid artery disease HTN (hypertension) <CHEYANNE Armijo - Last Filed: 01/12/23 15:23> Surgical History: Surgical History Hx of hernia repair Hx of prostatectomy Hx of rotator cuff surgery <CHEYANNE Armijo - Last Filed: 01/12/23 15:23> Family History Family History: Family History Father CVD (cardiovascular disease) Mother No problems noted. <CHEYANNE Armijo - Last Filed: 01/12/23 15:23> Social History Social History: Social History Alcohol intake: former Patient Tobacco Use Status: Former Tobacco user Smoked in Last 30 Days: No Use of substances other than those prescribed or required for medical reasons: No Advance Directives: No Advance Directives Information Provided: No <CHEYANNE Armijo - Last Filed: 01/12/23 15:23> Physical Exam ED Vital Signs: Vital Signs - 24 hr 01/12/23 15:19 01/12/23 20:00 01/12/23 20:44 Temperature 97.7 F 97.9 F 97.9 F Pulse Rate 68 73 71 Respiratory Rate 18 16 19 Blood Pressure 169/74 H 192/76 H 159/70 H Pulse Oximetry 98 92 93 Oxygen Delivery Method Room Air Room Air Room Air BMI result Body Mass Index 23.6 <CHEYANNE Armijo - Last Filed: 01/12/23 15:23> Vital Signs - 24 hr 01/12/23 15:19 01/12/23 20:00 01/12/23 20:44 Temperature 97.7 F 97.9 F 97.9 F Pulse Rate 68 73 71 Respiratory Rate 18 16 19 Blood Pressure 169/74 H 192/76 H 159/70 H Pulse Oximetry 98 92 93 Oxygen Delivery Method Room Air Room Air Room Air BMI result Body Mass Index 23.6 <Manny Tapia MD - Last Filed: 01/12/23 21:42> GEN: Well developed, no acute distress, alert, oriented HEENT: Normocephalic, atraumatic, normal external ears, nose appears normal, no oropharyngeal edema or exudates Eyes: Normal to appearance Neck: Supple, no lymphadenopathy Respiratory: Talks in complete sentences, no respiratory distress, clear to auscultation bilaterally Cardiovascular: Regular rate and rhythm, no murmurs rubs or gallops Abdomen: Soft, nontender, nondistended, no guarding, no rebound Back: No CVA tenderness Extremities: No clubbing cyanosis or edema Neurologic: No focal neurologic deficits, cranial nerves 2-12 intact, strength is 5/5 bilaterally, gait normal Skin: No rash <Manny Tapia MD - Last Filed: 01/12/23 21:42> Course Course Course Narrative: RME--87yo M with PMHx HTN, CAD, COPD on home O2 2L c/o palpitations/heart fluttering and shakiness x [employer]. Denies CP, SOB, CHARLES, N/V Lungs CTA, ambulating with steady gait EKG, Labs, CXR ordered <CHYEANNE Armijo - Last Filed: 01/12/23 15:23> Reevaluation(s) Reevaluation #1: 87-year-old male presented with full a vibration sensation in this belly. Symptoms lasted shortly. There is no chest pain or other symptoms. His examination is unremarkable. A chest x-ray revealed a possible left upper lobe opacification. We will treat that with antibiotics. His oxygen saturations and blood pressure remaining good standing. Believe he can be discharged at this time with follow-up his primary care provider in the next few days. He was given instructions return for any worsening or concerning symptoms. I discussed all results with the patient including an elevated creatinine. He is unaware if this represents chronic kidney disease are new change. Na event, there was no further workup needed to address this at this time <Manny Tapia MD - Last Filed: 01/12/23 21:42> Time: 21:37 <Manny Tapia MD - Last Filed: 01/12/23 21:42> Medical Decision Making Medical Decision Making [facility] Narrative: 87-year-old male presents with of vibration sensation in his belly. His abdomen is soft, nontender, nondistended. He has no urinary complaints. Denies any chest pain, shortness breath, new cough, new mucus production. He otherwise feels well. Symptoms lasted for couple of hours and went away on their own. Etiology of his symptoms is not entirely clear but will perform a workup inclu ding laboratory analysis, chest x-ray, EKG to see if there is any evidence of arrhythmia or any other metabolic abnormality. <Manny Tapia MD - Last Filed: 01/12/23 21:42> Differential Diagnosis Differential Diagnoses: The differential diagnosis associated with the presentation includes (Cardiac arrhythmia, electrolyte abnormality, anemia, neuropathy, gas, IBS) <Manny Tapia MD - Last Filed: 01/12/23 21:42> Admission/Observation Consideration of admission/observation: Escalation of care including admission/observation considered <Manny Tapia MD - Last Filed: 01/12/23 21:42> Lab Data [facility] Lab Attestation statement: I reviewed the patient's lab results. <Manny Tapia MD - Last Filed: 0 01/12/23 21:42> Result Diagrams: 01/12/23 16:07 01/12/23 16:07 <CHEYANNE Armijo - Last Filed: 01/12/23 15:23> Labs: Lab Results 01/12/23 01/12/23 01/12/23 Range/Units 16:07 16:07 16:07 WBC 10.2 (4.8-10.8) X10*3/uL RBC 4.59 L (4.60-5.80) X10*6/uL Hgb 11.1 L (14.0-18.0) g/dl Hct 37.0 L (42.0-52.0) % MCV 80.6 (80.0-98.0) fL MCH 24.2 L (27.0-33.0) pg MCHC 30.0 L (31.0-36.0) g/dl RDW 19.8 H (11.0-16.0) % Plt Count 256 (160-400) X10*3/uL MPV 10.3 (9.4-12.4) fL Immature Gran % (Auto) 0.3 (0.0-0.4) % Neut % (Auto) 66.0 (45-73) % Lymph % (Auto) 13.5 L (20-40) % [place] % (Auto) 8.8 (2-11) % Eos % (Auto) 10.6 H (0-4) % Baso % (Auto) 0.8 (0-2) % Lymph # (Auto) 1.4 (1.2-4.9) X10*3/uL [place] # (Auto) 0.9 (0.1-1.2) X10*3/uL Eos # (Auto) 1.1 H (0.0-0.4) X10*3/uL Baso # (Auto) 0.1 (0.0-0.2) X10*3/uL Abs Immat Gran (auto) 0.03 (0.00-0.03) X10*3/uL Absolute Neuts (auto) 6.7 (2.0-8.3) x10*3/uL Absolute Nucleated RBC 0.000 (0.0-0.012) X10*3/uL Nucleated RBC % (auto) 0.0 (0.0-0.2) /100WBC PT 15.0 H (10.0-13.1) SEC INR 1.3 H (0.9-1.1) Sodium 139 (135-145) mmol/L Potassium 4.3 (3.3-5.1) mmol/L Chloride 107 (96-108) mmol/L Carbon Dioxide 23 (22-29) mmol/L Anion Gap 13 (12-20) BUN 15 (9-16) mg/dL Creatinine 1.25 (0.5-1.4) mg/dL Estim Creat Clear Calc 41.0 Estimated GFR 55 Random Glucose 106 (60-115) mg/dL Calcium 8.9 (8.4-10.2) mg/dL Magnesium 2.1 (1.6-2.6) mg/dL Total Bilirubin 0.4 (0.0-1.0) mg/dL Direct Bilirubin < 0.2 (0.0-0.5) mg/dL AST 18 (5-37) U/L ALT 11 (0-40) U/L Alkaline Phosphatase 81 (39-117) U/L Troponin I High Sens (<3.5-35.0) ng/L B-Natriuretic Peptide (<100) pg/mL Total Protein 6.7 (6.5-8.0) g/dL Albumin 4.0 (3.5-5.0) g/dL COVID-19 (YANICK) (Negative) COVID-19 Clin Com Influenza Type A (JACKIE) Influenza Type B (JACKIE) Influenza A & B Note 01/12/23 01/12/23 01/12/23 Range/Units 16:07 16:07 16:07 WBC (4.8-10.8) X10*3/uL RBC (4.60-5.80) X10*6/uL Hgb (14.0-18.0) g/dl Hct (42.0-52.0) % MCV (80.0-98.0) fL MCH (27.0-33.0) pg MCHC (31.0-36.0) g/dl RDW (11.0-16.0) % Plt Count (160-400) X10*3/uL MPV (9.4-12.4) fL Immature Gran % (Auto) (0.0-0.4) % Neut % (Auto) (45-73) % Lymph % (Auto) (20-40) % [place] % (Auto) (2-11) % Eos % (Auto) (0-4) % Baso % (Auto) (0-2) % Lymph # (Auto) (1.2-4.9) X10*3/uL [place] # (Auto) (0.1-1.2) X10*3/uL Eos # (Auto) (0.0-0.4) X10*3/uL Baso # (Auto) (0.0-0.2) X10*3/uL Abs Immat Gran (auto) (0.00-0.03) X10*3/uL Absolute Neuts (auto) (2.0-8.3) x10*3/uL Absolute Nucleated RBC (0.0-0.012) X10*3/uL Nucleated RBC % (auto) (0.0-0.2) /100WBC PT (10.0-13.1) SEC INR (0.9-1.1) Sodium (135-145) mmol/L Potassium (3.3-5.1) mmol/L Chloride (96-108) mmol/L Carbon Dioxide (22-29) mmol/L Anion Gap (12-20) BUN (9-16) mg/dL Creatinine (0.5-1.4) mg/dL Estim Creat Clear Calc Estimated GFR Random Glucose (60-115) mg/dL Calcium (8.4-10.2) mg/dL Magnesium (1.6-2.6) mg/dL Total Bilirubin (0.0-1.0) mg/dL Direct Bilirubin (0.0-0.5) mg/dL AST (5-37) U/L ALT (0-40) U/L Alkaline Phosphatase (39-117) U/L Troponin I High Sens 5.7 (<3.5-35.0) ng/L B-Natriuretic Peptide 60 (<100) pg/mL Total Protein (6.5-8.0) g/dL Albumin (3.5-5.0) g/dL COVID-19 (YANICK) (Negative) COVID-19 Clin Com Influenza Type A (JACKIE) Cancelled Influenza Type B (JACKIE) Cancelled Influenza A & B Note Cancelled 01/12/23 Range/Units 16:07 WBC (4.8-10.8) X10*3/uL RBC (4.60-5.80) X10*6/uL Hgb (14.0-18.0) g/dl Hct (42.0-52.0) % MCV (80.0-98.0) fL MCH (27.0-33.0) pg MCHC (31.0-36.0) g/dl RDW (11.0-16.0) % Plt Count (160-400) X10*3/uL MPV (9.4-12.4) fL Immature Gran % (Auto) (0.0-0.4) % Neut % (Auto) (45-73) % Lymph % (Auto) (20-40) % [place] % (Auto) (2-11) % Eos % (Auto) (0-4) % Baso % (Auto) (0-2) % Lymph # (Auto) (1.2-4.9) X10*3/uL [place] # (Auto) (0.1-1.2) X10*3/uL Eos # (Auto) (0.0-0.4) X10*3/uL Baso # (Auto) (0.0-0.2) X10*3/uL Abs Immat Gran (auto) (0.00-0.03) X10*3/uL Absolute Neuts (auto) (2.0-8.3) x10*3/uL Absolute Nucleated RBC (0.0-0.012) X10*3/uL Nucleated RBC % (auto) (0.0-0.2) /100WBC PT (10.0-13.1) SEC INR (0.9-1.1) Sodium (135-145) mmol/L Potassium (3.3-5.1) mmol/L Chloride (96-108) mmol/L Carbon Dioxide (22-29) mmol/L Anion Gap (12-20) BUN (9-16) mg/dL Creatinine (0.5-1.4) mg/dL Estim Creat Clear Calc Estimated GFR Random Glucose (60-115) mg/dL Calcium (8.4-10.2) mg/dL Magnesium (1.6-2.6) mg/dL Total Bilirubin (0.0-1.0) mg/dL Direct Bilirubin (0.0-0.5) mg/dL AST (5-37) U/L ALT (0-40) U/L Alkaline Phosphatase (39-117) U/L Troponin I High Sens (<3.5-35.0) ng/L B-Natriuretic Peptide (<100) pg/mL Total Protein (6.5-8.0) g/dL Albumin (3.5-5.0) g/dL COVID-19 (YANICK) Negative (Negative) COVID-19 Clin Com See Note Influenza Type A (JACKIE) Influenza Type B (JACKIE) Influenza A & B Note <CHEYANNE Armijo - Last Filed: 01/12/23 15:23> Lab Results 01/12/23 01/12/23 01/12/23 Range/Units 16:07 16:07 16:07 WBC 10.2 (4.8-10.8) X10*3/uL RBC 4.59 L (4.60-5.80) X10*6/uL Hgb 11.1 L (14.0-18.0) g/dl Hct 37.0 L (42.0-52.0) % MCV 80.6 (80.0-98.0) fL MCH 24.2 L (27.0-33.0) pg MCHC 30.0 L (31.0-36.0) g/dl RDW 19.8 H (11.0-16.0) % Plt Count 256 (160-400) X10*3/uL MPV 10.3 (9.4-12.4) fL Immature Gran % (Auto) 0.3 (0.0-0.4) % Neut % (Auto) 66.0 (45-73) % Lymph % (Auto) 13.5 L (20-40) % [place] % (Auto) 8.8 (2-11) % Eos % (Auto) 10.6 H (0-4) % Baso % (Auto) 0.8 (0-2) % Lymph # (Auto) 1.4 (1.2-4.9) X10*3/uL [place] # (Auto) 0.9 (0.1-1.2) X10*3/uL Eos # (Auto) 1.1 H (0.0-0.4) X10*3/uL Baso # (Auto) 0.1 (0.0-0.2) X10*3/uL Abs Immat Gran (auto) 0.03 (0.00-0.03) X10*3/uL Absolute Neuts (auto) 6.7 (2.0-8.3) x10*3/uL Absolute Nucleated RBC 0.000 (0.0-0.012) X10*3/uL Nucleated RBC % (auto) 0.0 (0.0-0.2) /100WBC PT 15.0 H (10.0-13.1) SEC INR 1.3 H (0.9-1.1) Sodium 139 (135-145) mmol/L Potassium 4.3 (3.3-5.1) mmol/L Chloride 107 (96-108) mmol/L Carbon Dioxide 23 (22-29) mmol/L Anion Gap 13 (12-20) BUN 15 (9-16) mg/dL Creatinine 1.25 (0.5-1.4) mg/dL Estim Creat Clear Calc 41.0 Estimated GFR 55 Random Glucose 106 (60-115) mg/dL Calcium 8.9 (8.4-10.2) mg/dL Magnesium 2.1 (1.6-2.6) mg/dL Total Bilirubin 0.4 (0.0-1.0) mg/dL Direct Bilirubin < 0.2 (0.0-0.5) mg/dL AST 18 (5-37) U/L ALT 11 (0-40) U/L Alkaline Phosphatase 81 (39-117) U/L Troponin I High Sens (<3.5-35.0) ng/L B-Natriuretic Peptide (<100) pg/mL Total Protein 6.7 (6.5-8.0) g/dL Albumin 4.0 (3.5-5.0) g/dL COVID-19 (YANICK) (Negative) COVID-19 Clin Com Influenza Type A (AJCKIE) Influenza Type B (JACKIE) Influenza A & B Note 01/12/23 01/12/23 01/12/23 Range/Units 16:07 16:07 16:07 WBC (4.8-10.8) X10*3/uL RBC (4.60-5.80) X10*6/uL Hgb (14.0-18.0) g/dl Hct (42.0-52.0) % MCV (80.0-98.0) fL MCH (27.0-33.0) pg MCHC (31.0-36.0) g/dl RDW (11.0-16.0) % Plt Count (160-400) X10*3/uL MPV (9.4-12.4) fL Immature Gran % (Auto) (0.0-0.4) % Neut % (Auto) (45-73) % Lymph % (Auto) (20-40) % [place] % (Auto) (2-11) % Eos % (Auto) (0-4) % Baso % (Auto) (0-2) % Lymph # (Auto) (1.2-4.9) X10*3/uL [place] # (Auto) (0.1-1.2) X10*3/uL Eos # (Auto) (0.0-0.4) X10*3/uL Baso # (Auto) (0.0-0.2) X10*3/uL Abs Immat Gran (auto) (0.00-0.03) X10*3/uL Absolute Neuts (auto) (2.0-8.3) x10*3/uL Absolute Nucleated RBC (0.0-0.012) X10*3/uL Nucleated RBC % (auto) (0.0-0.2) /100WBC PT (10.0-13.1) SEC INR (0.9-1.1) Sodium (135-145) mmol/L Potassium (3.3-5.1) mmol/L Chloride (96-108) mmol/L Carbon Dioxide (22-29) mmol/L Anion Gap (12-20) BUN (9-16) mg/dL Creatinine (0.5-1.4) mg/dL Estim Creat Clear Calc Estimated GFR Random Glucose (60-115) mg/dL Calcium (8.4-10.2) mg/dL Magnesium (1.6-2.6) mg/dL Total Bilirubin (0.0-1.0) mg/dL Direct Bilirubin (0.0-0.5) mg/dL AST (5-37) U/L ALT (0-40) U/L Alkaline Phosphatase (39-117) U/L Troponin I High Sens 5.7 (<3.5-35.0) ng/L B-Natriuretic Peptide 60 (<100) pg/mL Total Protein (6.5-8.0) g/dL Albumin (3.5-5.0) g/dL COVID-19 (YANICK) (Negative) COVID-19 Clin Com Influenza Type A (JACKIE) Cancelled Influenza Type B (JACKIE) Cancelled Influenza A & B Note Cancelled 01/12/23 Range/Units 16:07 WBC (4.8-10.8) X10*3/uL RBC (4.60-5.80) X10*6/uL Hgb (14.0-18.0) g/dl Hct (42.0-52.0) % MCV (80.0-98.0) fL MCH (27.0-33.0) pg MCHC (31.0-36.0) g/dl RDW (11.0-16.0) % Plt Count (160-400) X10*3/uL MPV (9.4-12.4) fL Immature Gran % (Auto) (0.0-0.4) % Neut % (Auto) (45-73) % Lymph % (Auto) (20-40) % [place] % (Auto) (2-11) % Eos % (Auto) (0-4) % Baso % (Auto) (0-2) % Lymph # (Auto) (1.2-4.9) X10*3/uL [place] # (Auto) (0.1-1.2) X10*3/uL Eos # (Auto) (0.0-0.4) X10*3/uL Baso # (Auto) (0.0-0.2) X10*3/uL Abs Immat Gran (auto) (0.00-0.03) X10*3/uL Absolute Neuts (auto) (2.0-8.3) x10*3/uL Absolute Nucleated RBC (0.0-0.012) X10*3/uL Nucleated RBC % (auto) (0.0-0.2) /100WBC PT (10.0-13.1) SEC INR (0.9-1.1) Sodium (135-145) mmol/L Potassium (3.3-5.1) mmol/L Chloride (96-108) mmol/L Carbon Dioxide (22-29) mmol/L Anion Gap (12-20) BUN (9-16) mg/dL Creatinine (0.5-1.4) mg/dL Estim Creat Clear Calc Estimated GFR Random Glucose (60-115) mg/dL Calcium (8.4-10.2) mg/dL Magnesium (1.6-2.6) mg/dL Total Bilirubin (0.0-1.0) mg/dL Direct Bilirubin (0.0-0.5) mg/dL AST (5-37) U/L ALT (0-40) U/L Alkaline Phosphatase (39-117) U/L Troponin I High Sens (<3.5-35.0) ng/L B-Natriuretic Peptide (<100) pg/mL Total Protein (6.5-8.0) g/dL Albumin (3.5-5.0) g/dL COVID-19 (YANICK) Negative (Negative) COVID-19 Clin Com See Note Influenza Type A (JACKIE) Influenza Type B (JACKIE) Influenza A & B Note <Manny Tapia MD - Last Filed: 01/12/23 21:42> Independent Interpretation I performed an independent interpretation of an: EKG (Sinus bradycardia heart rate 58, normal intervals, no acute ST elevations or depressions, nonspecific T-wave changes, possible LVH,) and Plain X-Ray (Chest: Mild patient left upper lobe, no pleural effusion, no CHF, no discrete masses) <Manny Tapia MD - Last Filed: 01/12/23 21:42> Radiology Impression Discussion of test interpretation with radiology: I have reviewed the radiologist's reading. ( XR/XR chest 1V IMPRESSION: Hazy opacity in the left upper lobe. Emphysema Dictated By:Maurice James MDSigned By:<Electronically signed by Maurice James MD in [place]>01/12/23 1649 DD/ 1620TD/TT: [employer] Professor:) <Manny Tapia MD - Last Filed: 01/12/23 21:42> External Record Review External record reviewed: Prior outpatient labs (Protocol: LEXISCAN Max HR: 088 BPM 64% of Pred: 136 BPM Max BP: 124/078 mmHG Max Work Load: 1.[address] ress test using Lexiscan while sitting and kicking his feet. Pt tolerated well, denies any anginal sx. EKG without arrhythmias, non-diagnostic for ischemia. Nuclear) <Manny Tapia MD - Last Filed: 01/12/23 21:42> EchocardiogramConclusions: - The left ventricular systolic function is normal.? The visually estimated ejection fraction is between 60-65%. ? - There is mild mitral annular calcification.? <Manny Tapia MD - Last Filed: 01/12/23 21:42> Prescription Management I considered prescription management with: Antibiotic <Manny Tapia MD - Last Filed: 01/12/23 21:42> Chronic Conditions Patient?s care impacted by: Hypertension and Other (COPD) <Manny Tapia MD - Last Filed: 01/12/23 21:42> Discharge Plan Discharge Clinical Impression: Abdominal symptoms, Left upper lobe pneumonia, Creatinine elevation <CHEYANNE Armijo - Last Filed: 01/12/23 15:23> Patient Disposition: Home, Self-Care <CHEYANNE Armijo - Last Filed: 01/12/23 15:23> Instructions: Acute Abdominal Pain (ED), Pneumonia (ED) <CHEYANNE Armijo - Last Filed: 01/12/23 15:23> Prescriptions: New azithromycin 250 mg tablet 250 mg PO DAILY 4 Days Qty: 4 0RF Rx Instructions: start on day 2 of therapy No Action lisinopril 5 mg tablet 5 mg PO DAILY citalopram 20 mg tablet 20 mg PO DAILY omeprazole 20 mg capsule,delayed release(DR/EC) 20 mg PO DAILY fluticasone propionate 50 mcg/actuation spray,suspension 1 spray intranasal DAILY atorvastatin 10 mg tablet 10 mg PO DAILY aspirin [Adult Low Dose Aspirin] 81 mg tablet,delayed release (DR/EC) 81 mg PO DAILY Anoro Ellipta 62.5-25 mcg/actuation blister with device 1 inh inhalation DAILY 30 Days Qty: 1 7RF Eliquis 5 mg tablet 5 mg PO BID albuterol sulfate [ProAir HFA] 90 mcg/actuation HFA aerosol inhaler 2 puff inhalation Q4-6H PRN (Reason: shortness of breath or wheezing) 60 Days Qty: 6.7 2RF <CHEYANNE Armijo - Last Filed: 01/12/23 15:23> Referrals: Chico Bojorquez MD [Primary Care Provider] - 2 days <CHEYANNE Armijo - Last Filed: 01/12/23 15:23>
[2023-01-12 15:19] VITALS: BP 169/74; PULSE 68; RESP 18; TEMP 36.5; O2SAT 98; BMI 23.6
--- NOTE | 2023-01-12 15:20 | ECG_ITS ---
Test Reason : ARRYTHMIA Blood Pressure : / mmHG Vent. Rate : 058 BPM Atrial Rate : 058 BPM P-R Int : 184 ms QRS Dur : 090 ms QT Int : 470 ms P-R-T Axes : -15 134 144 degrees QTc Int : 461 ms Sinus bradycardia Left posterior fascicular block Abnormal ECG When compared with ECG of 06-APR-2020 17:47, DE interval has decreased Left posterior fascicular block is now Present Referred By: Carin Leger Electronically Signed By:LORENA TELLO MD
[2023-01-12 16:14] LABS: MANUAL DIFF FLAG NO
[2023-01-12 16:16] LABS: Basophils Absolute Auto 0.1 X10*3/uL (0.0-0.2); Basophils Percent Auto 0.8 % (0-2); Eosinophils Absolute Auto 1.1 X10*3/uL (0.0-0.4); Eosinophils Percent Auto 10.6 % (0-4); Hemoglobin 11.1 g/dl (14.0-18.0); Imm Gran Abs Auto 0.03 X10*3/uL (0.00-0.03); Imm Gran Pct Auto 0.3 % (0.0-0.4); Lymphocytes Absolute Auto 1.4 X10*3/uL (1.2-4.9); Lymphocytes Percent Auto 13.5 % (20-40); Mean Corpuscular Hemoglobin 24.2 pg (27.0-33.0); Mean Corpuscular Volume 80.6 fL (80.0-98.0); Mean Platelet Volume 10.3 fL (9.4-12.4); Monocytes Absolute Auto 0.9 X10*3/uL (0.1-1.2); Monocytes Percent Auto 8.8 % (2-11); Neutrophils Absolute Auto 6.7 x10*3/uL (2.0-8.3); Platelet Count 256 X10*3/uL (160-400); Red Blood Count 4.59 X10*6/uL (4.60-5.80); Red Cell Distribution Width 19.8 % (11.0-16.0); White Blood Count 10.2 X10*3/uL (4.8-10.8)
[2023-01-12 16:21] LABS: INTERNATIONAL NORM RATIO 1.3 (0.9-1.1)
[2023-01-12 16:30] LABS: Alanine Aminotransferase 11 U/L (0-40); Alkaline Phosphatase 81 U/L (39-117); Anion Gap 13 (12-20); Aspartate Amino Transferase 18 U/L (5-37); Bilirubin Direct < 0.2 mg/dL (0.0-0.5); Bilirubin Total 0.4 mg/dL (0.0-1.0); Blood Urea Nitrogen 15 mg/dL (9-16); Calcium 8.9 mg/dL (8.4-10.2); Carbon Dioxide 23 mmol/L (22-29); Chloride 107 mmol/L (96-108); Estimated Glomerular Filt Rate 55; Glucose Random 106 mg/dL (60-115); Magnesium 2.1 mg/dL (1.6-2.6); Potassium 4.3 mmol/L (3.3-5.1); Sodium 139 mmol/L (135-145); Total Protein 6.7 g/dL (6.5-8.0)
[2023-01-12 16:34] LABS: COVID-19 Test Negative (Negative); IDNOW Serial# 08D9AD1C
[2023-01-12 16:35] LABS: B Type Natriuretic Peptide 60 pg/mL (<100)
[2023-01-12 16:40] LABS: Troponin-I High Sensitivity 5.7 ng/L (<3.5-35.0)
[2023-01-12 20:00] VITALS: BP 192/76; PULSE 73; RESP 16; TEMP 36.6; O2SAT 92
[2023-01-12 20:44] VITALS: BP 159/70; PULSE 71; RESP 19; TEMP 36.6; O2SAT 93
--- NOTE | 2023-01-12 20:45 | PC.NURSE ---
pt AOx3, walking with steady gait. pt reports that they are on oxygen at home intermittently PRN. Pt 92% on RA when resting, on exertion O2 drops to mid 80s. monitor technician on, NSR. tech drawing blood cultures. EKG done in triage
[2023-01-12 21:27] LABS: Lactic Acid 1.3 mmol/L (0.5-2.0)
[2023-01-12 21:37] LABS: Troponin-I High Sensitivity 6.6 ng/L (<3.5-35.0)
[2023-01-12] MEDS: Azithromycin 500 MG TABLET PO (21:59)
== END 2023-01-12 23:19 | disposition home or self-care (01) ==
PROVIDERS: Physician Assistant; Emergency Provider Emergency Medicine; PCP Internal Medicine
DX: R00.2 Palpitations (principal); J18.9 Pneumonia, unspecified organism; R79.89 Other specified abnormal findings of blood chemistry; Z20.822 Contact with and (suspected) exposure to COVID-19; I10 Essential (primary) hypertension; J44.9 Chronic obstructive pulmonary disease, unspecified; Z99.81 Dependence on supplemental oxygen; Z79.82 Long term (current) use of aspirin; Z79.02 Long term (current) use of antithrombotics/antiplatelets; Z79.01 Long term (current) use of anticoagulants; Z79.899 Other long term (current) drug therapy
CPT/HCPCS: 36415; 71045; 80048; 80076; 83605; 83735; 83880; 84484; 85025; 85610; 87040; 87635; 93005; 99283; 99285

== ENCOUNTER 2023-01-16 09:54 | Outpatient (REF) | payer MEDICARE, SELFPAY ==
--- NOTE | ~2023-01-16 | CT_ITS ---
EXAMINATION: CT ABDOMEN AND PELVIS WITH CONTRAST CLINICAL INFORMATION: Left lower quadrant pain. COMPARISON: None available. TECHNIQUE: Multidetector volumetric images were obtained from the superior aspect of the liver through the pubic symphysis following administration 85 mL of Omnipaque 350 intravenous contrast. Sagittal and coronal reformatted images were obtained on the technologist's workstation. Oral contrast: Yes This CT examination was performed using dose optimization techniques as appropriate, variously including the following: *Automated exposure control *Adjustment of mA and/or kV according to patient size (this includes techniques or standardized protocols for targeted exams where dose is matched to indication/reason for exam; i.e. extremities or head) *Use of iterative reconstruction technique DLP: 398 mGy-cm FINDINGS: LUNG BASES: Question mild peripheral interstitial disease at the lung bases. LIVER, GALLBLADDER, AND BILIARY TREE: The liver is normal in size, shape, and attenuation. There are several small low-attenuation lesions in the liver that are too small to definitively characterize but probably represent small cysts. Largest measures 4 mm in the lateral segment of the left lobe. No other focal hepatic lesion or biliary ductal dilatation is present. The gallbladder is unremarkable with no evidence of radiopaque gallstones, gallbladder wall thickening, or obvious pericholecystic inflammatory changes. PANCREAS: Small calcification in the body of the pancreas. The pancreas is otherwise normal. SPLEEN: Unremarkable. ADRENAL GLANDS: Unremarkable. KIDNEYS AND URETERS: The kidneys are normal in size, shape, and attenuation. 3 mm stone in the upper pole of the right kidney. Small cyst in the upper pole of the left kidney. No imaging followup recommended. BLADDER: Unremarkable. GASTROINTESTINAL TRACT: Mild diverticulosis. No evidence of diverticulitis. Stool throughout the colon questionable for constipation. The small and large bowel are otherwise unremarkable. The appendix is unremarkable. ABDOMINAL WALL: Small umbilical hernia containing fat. LYMPH NODES: Normal. VASCULAR: Atherosclerotic disease. 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 PELVIC VISCERA: Unremarkable. OSSEOUS STRUCTURES: Degenerative changes of the spine. CT/CT abdomen pelvis w IV con IMPRESSION: Mild diverticulosis of the colon and constipation. Small nonobstructing right renal stone. Fleischner guidelines were followed.
[2023-01-16] MEDS: iohexoL 350 MG/ML 100 ML INFUS..BTL IV (12:15)
== END 2023-01-16 09:55 | disposition home or self-care (01) ==
LOC: HO.CT 09:54
PROVIDERS: PCP Internal Medicine; Visit Provider Internal Medicine
DX: R10.32 Left lower quadrant pain (principal)
CPT/HCPCS: 74177; Q9967

== ENCOUNTER 2023-02-05 14:00 | Outpatient (REF) | payer MEDICARE, SELFPAY ==
--- NOTE | ~2023-02-05 | CT_ITS ---
EXAMINATION: CT CHEST WITH CONTRAST CLINICAL INFORMATION: Abnormal chest x-ray/hazy opacity, left upper lobe COMPARISON: Previous chest x-ray December [address] June 2021 TECHNIQUE: Multidetector volumetric CT imaging of the chest was obtained after the administration of 65 mL of Omnipaque 350 intravenous contrast without immediate adverse reactions. Axial MIP volume rendering provided. Sagittal and coronal reformatted images were obtained. This CT examination was performed using dose optimization techniques as appropriate, variously including the following: *Automated exposure control *Adjustment of mA and/or kV according to patient size (this includes techniques or standardized protocols for targeted exams where dose is matched to indication/reason for exam; i.e. extremities or head) *Use of iterative reconstruction technique DLP: 139 mGy-cm FINDINGS: LUNGS: Evaluation at the lung bases is limited due to artifact from respiratory motion. There is evidence of mild emphysema. There is mild biapical pleural and parenchymal scarring. There are increased peripheral interstitial markings seen in the lower lungs are questionable for interstitial lung disease. There are stable small right pulmonary nodules. These measure 3 mm in the right upper lobe, axial image 70 series 5, and superior segment, right lower lobe, axial image 70 series 5. These are stable. There is a new nodule that appears to be associated with airways disease in the left upper lobe measuring 4 mm, axial image 72 series 5. No evidence of pneumonia. MEDIASTINUM: Severe atherosclerotic disease. Normal heart size. Mild coronary artery and aortic valve calcification. No pericardial effusion. Small bilateral hilar or mediastinal lymph nodes. These appear increased from 2020 exam. No enlarged lymph nodes. Small left thyroid nodule. Based on patient age and size, no imaging follow-up recommended. PLEURA: There is no pleural effusion. No pleural mass or thickening. AXILLA: No lymphadenopathy. UPPER ABDOMEN: Small low-attenuation liver lesions suggestive of cysts. Small cyst in the upper pole of the left kidney. No imaging follow-up recommended. Small right renal stone. Atherosclerotic disease. OSSEOUS STRUCTURES: Left shoulder replacement. Degenerative changes of the spine. Extensive spondylosis with the addition. CT/CT chest w IV con IMPRESSION: Emphysema and interstitial lung disease. New 4 mm ground-glass attenuation left upper lobe nodule probably related to airways disease. Stable small right pulmonary nodules from 2020. Severe atherosclerotic disease. Small right renal stone. Fleischner guidelines were followed.
[2023-02-05] MEDS: iohexoL 350 MG/ML 100 ML INFUS..BTL IV (14:42)
== END 2023-02-05 14:01 | disposition home or self-care (01) ==
LOC: HO.CT 14:00
PROVIDERS: PCP Internal Medicine; Visit Provider Internal Medicine
DX: R93.89 Abnormal findings on diagnostic imaging of other specified body structures (principal)
CPT/HCPCS: 71260; Q9967

== ENCOUNTER 2023-02-07 11:02 | Outpatient (REF) | payer MEDICARE, SELFPAY ==
--- NOTE | ~2023-02-07 | XR_ITS ---
EXAMINATION: XR CHEST CLINICAL INFORMATION: Reason for Exam PNEUMONIA COMPARISON: Chest radiograph 01/12/2023, CT chest 02/05/2023 TECHNIQUE: 2 views of the chest FINDINGS: Status post reverse left shoulder arthroplasty. Slight increase in a minimal patchy right basilar airspace opacity which on prior CT chest appears to correspond to atelectasis. No pneumothorax or pleural effusion. Unchanged cardiomediastinal silhouette. XR/XR chest 2V IMPRESSION: Slight increase in a minimal patchy right basilar airspace opacity which on prior CT chest appears to correspond to atelectasis, though given minimally increased from prior superimposed infection or aspiration would be difficult to exclude. Recommend correlation with clinical symptoms.
== END 2023-02-07 11:03 | disposition home or self-care (01) ==
LOC: HO.XRAY 11:02
PROVIDERS: PCP Internal Medicine; Visit Provider Internal Medicine
DX: J18.9 Pneumonia, unspecified organism (principal)
CPT/HCPCS: 71046

== ENCOUNTER 2023-02-12 10:28 | Outpatient (REF) | payer MEDICARE, SELFPAY ==
[2023-02-12 12:58] LABS: Prostate Specific Antigen 0.85 ng/mL (<0.05-4.0)
== END 2023-02-12 10:29 | disposition home or self-care (01) ==
LOC: HO.LAB 10:28
PROVIDERS: PCP Internal Medicine; Visit Provider Physician Assistant Medical
DX: Z12.5 Encounter for screening for malignant neoplasm of prostate (principal); C61 Malignant neoplasm of prostate
CPT/HCPCS: 36415; 84153

== ENCOUNTER 2023-03-06 10:24 | Outpatient (REF) | payer MEDICARE, SELFPAY ==
--- NOTE | ~2023-03-06 | US_ITS ---
EXAMINATION: US EXTRACRANIAL CAROTID DUPLEX, BILATERAL CLINICAL INFORMATION: Carotid stenosis. COMPARISON: 10/24/2020 TECHNIQUE: Real-time ultrasound and Doppler techniques (integrating B-mode 2-D vascular images, Doppler spectral analysis and color-flow Doppler imaging) were utilized to interrogate the extracranial carotid arteries, the vertebral arteries and proximal subclavian arteries bilaterally. The degree of stenosis is determined by criteria similar to NASCET. FINDINGS: Right Side: 1. There is marked atherosclerotic plaque seen in the bifurcation/proximal ICA region. 2. The common carotid artery PSV proximally is 103 cm/s and distally 81 cm/s. 3. The proximal internal carotid artery velocities are 207 cm/s systolic and 22 cm/s diastolic. 4. The proximal external carotid artery PSV is 423 cm/s. Prior velocity was 280 cm/s. 5. The vertebral artery shows antegrade flow. 6. The subclavian artery waveforms are normal. Left Side: 1. There is [id number] atherosclerotic plaque seen in the bifurcation/proximal ICA region. 2. The common carotid artery PSV proximally is 71 cm/s and distally 148 cm/s. 3. The proximal internal carotid artery velocities are 169 cm/s systolic and 27 cm/s diastolic. 4. The proximal external carotid artery PSV is 225 cm/s. 5. The vertebral artery shows antegrade flow. 6. The subclavian artery waveforms are normal. US/US carotid duplex BI IMPRESSION: 1. RIGHT: Moderate, hemodynamically significant stenosis of the proximal right internal carotid artery corresponding to a 50-79% stenosis by velocity criteria. A severe right ECA stenosis is present. 2. LEFT: Moderate, hemodynamically significant stenosis of the proximal left internal carotid artery corresponding to a 50-79% stenosis by velocity criteria. A mild left ECA stenosis is present. 3. There is no change in the category/severity of disease when compared to the previous study dated 10/24/2020.
== END 2023-03-06 10:25 | disposition home or self-care (01) ==
LOC: HO.US 10:24
PROVIDERS: PCP Internal Medicine; Visit Provider Internal Medicine
DX: I65.23 Occlusion and stenosis of bilateral carotid arteries (principal)
CPT/HCPCS: 93880

== ENCOUNTER 2023-04-12 11:27 | Outpatient (REF) | payer MEDICARE, SELFPAY ==
[2023-04-12 12:01] LABS: Estimated Average Glucose 111 mg/dL; Hemoglobin A1c % 5.5 %
[2023-04-12 12:35] LABS: Alanine Aminotransferase 8 U/L (0-40); Alkaline Phosphatase 88 U/L (39-117); Aspartate Amino Transferase 17 U/L (5-37); Bilirubin Direct 0.3 mg/dL (0.0-0.5); Bilirubin Total 0.8 mg/dL (0.0-1.0); Cholesterol 109 mg/dL; Glucose Fasting 97 mg/dL (60-99); HDL Cholesterol 44 mg/dL; LDL Cholesterol Calculated 57 mg/dl; Total Protein 6.5 g/dL (6.5-8.0); Triglycerides 42 mg/dL
[2023-04-12 13:33] LABS: Reflex LDLD? No
== END 2023-04-12 11:28 | disposition home or self-care (01) ==
LOC: HO.LNP 11:27
PROVIDERS: Visit Provider Internal Medicine
DX: E78.00 Pure hypercholesterolemia, unspecified (principal); R73.03 Prediabetes
CPT/HCPCS: 80061; 80076; 82947; 83036

== ENCOUNTER 2023-05-08 10:36 | Outpatient (AMB) | payer MEDICARE, SELFPAY ==
--- NOTE | 2023-05-08 10:40 | A.OFFVIS_ITS ---
Intake Vital Signs 05/08/23 10:42 Weight 157 lb 10.088 oz BP 118/60 Blood Pressure Location Lt brachial Position Sitting Pulse 73 Pulse Source Pulse Oximeter Pulse Oximetry (%) 96 Oxygen Delivery Method Nasal Cannula Oxygen Flow Rate 2 Intake Visit Reasons: COPD Intake Note: uses O2 2 lpm with activity ([employer]) Allergies No Known Allergies Allergy (Unknown, Verified 05/08/23 10:47) NOT APPLICABLE Medication List - Last Reconciled 05/08/23 by Flor Haskins LPN albuterol sulfate 90 mcg/actuation (ProAir HFA) 2 puffs inhalation Q4-6H PRN 60 days apixaban (Eliquis) 5 mg PO BID aspirin (Adult Low Dose Aspirin) 81 mg PO DAILY atorvastatin 10 mg PO DAILY azithromycin 250 mg PO DAILY 4 days citalopram 20 mg PO DAILY fluticasone propionate 50 mcg/actuation 1 spray intranasal DAILY lisinopril 5 mg PO DAILY omeprazole 20 mg PO DAILY umeclidinium-vilanterol 62.5-25 mcg/actuation (Anoro Ellipta) 1 inh inhalation DAILY 30 days HPI COPD HPI Details Too is a pleasant 87 year old male, former 40+ pack-year smoker, quit 30 years prior with underlying 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 Today he presents for an acute visit. He reports over the past few days he has had a productive cough with increased sputum with white to yellow sputum and chest congestion. He denies any increased dyspnea, wheezing or chest tightness. He denies any fevers, chills or sick contacts. [facility] Medical History Bilateral carotid artery disease HTN (hypertension) Surgical History Hx of hernia repair Hx of prostatectomy Hx of rotator cuff surgery Family History Father CVD (cardiovascular disease) Mother No problems noted. Social History Alcohol intake: former Patient Tobacco Use Status: Former Tobacco user Review of Systems Const Denies chills, Denies excessive sweating, Denies fever(s), Denies headache(s) and Denies night sweats Eyes Denies dry eyes, Denies irritation and Denies itchy eyes ENT Reports Normal hearing present, Denies headache(s), Denies nasal congestion, Denies nasal discharge, Denies post nasal drip and Denies sore throat Card Denies chest pain, Denies chest pain at rest, Denies chest pain with activity, Denies claudication, Denies leg edema, Denies dyspnea, Denies dyspnea on exertion, Denies orthopnea and Denies paroxysmal nocturnal dyspnea Resp Denies pain on inspiration, Denies pain with cough, Denies dyspnea, Denies dyspnea on exertion, Denies stridor and Denies wheezing Musc Denies myalgias Neuro Reports Normal hearing present and Denies headache(s) Endo Denies excessive sweating Denis/Lymph Denies lymphadenopathy Aller/Immun Denies itchy eyes, Denies seasonal rhinorrhea and Denies wheezing Physical Exam Vital Signs: Last Vital Signs Pulse 73 05/08/23 10:42 BP 118/60 05/08/23 10:42 Pulse Ox 96 05/08/23 10:42 Oxygen Delivery Method Nasal Cannula 05/08/23 10:42 Oxygen Flow Rate 2 05/08/23 10:42 Const General: cooperative, healthy appearing, comfortable, no acute distress, well developed and alert Orientation/consciousness: patient oriented x3 HEENT Head: Yes normal to inspection, Yes normocephalic and Yes atraumatic Ears: hearing grossly normal bilaterally and external ears normal Eyes General: appearance normal, both eyes and all related structures Eyelids: Yes eyelids normal Sclerae: sclerae normal EOM: EOMs intact bilaterally Neck Neck: Yes normal visual inspection and Yes no lymphadenopathy Lymphatic: no lymphadenopathy noted Chest Chest palpation & inspection: normal inspection of the chest Resp Effort & Inspection: normal respiratory effort, able to speak in complete sentences, no audible wheezes, no cough, no stridor, not tachypneic, no tripod positioning and no use of accessory muscles Auscultation: no crackles, no rhonchi, no wheezes and diminished lung sounds Cardio Jugular venous distension: no JVD Rate: regular rate Rhythm: regular rhythm Skin Other: warm, dry General skin exam: no rashes or lesions noted Neuro General: patient oriented x3 Cranial nerves: Yes Normal hearing present Cognition (Neuro): normal cognition Gait exam (Neuro): Normal gait present Extrem General: Yes normal to inspection, Yes capillary refill normal, Yes no clubbing, cyanosis or edema and Yes no pedal edema Psych Appearance: grossly normal and well kempt Speech and movement: Normal speech and movement present and Clear speech present Affect: normal affect Attitude: cooperative Thought process: Normal thought process present Thought content: Normal thought content present Insight: Good insight present (Psych) Judgement: Good judgement present (Psych) Assessment & Plan Assessment & Plan (1) COPD (chronic obstructive pulmonary disease): Code(s): J44.9 - Chronic obstructive pulmonary disease, unspecified (2) Supplemental oxygen dependent: Code(s): Z99.81 - Dependence on supplemental oxygen Plan: Patient aware to maintain an oxygen saturation of 89-93% Plan Will treat bronchitic symptoms with doxycycline. He is aware to contact the office if symptoms do not improve. All questions were answered and patient is in agreement of plan. Will schedule follow up with Dr. Urrutia in 3-6 months or sooner if needed. Medications: New doxycycline hyclate 100 mg PO BID 14 caps 0RF [id number]-bpuavcjtj-kbqfnmhh 200-62.5-25 mcg (Trelegy Ellipta) 1 inh inhalation DAILY 60 ea 6RF albuterol sulfate 2.5 mg (3 mL) inhalation Q4-6H PRN 90 mL 0RF shortness of breath or wheezing Coding Level of Care Code Est Pt Level 3 (97547) Diagnoses COPD (chronic obstructive pulmonary disease) J44.9 Supplemental oxygen dependent Z99.81
[2023-05-08 10:42] VITALS: BP 118/60; PULSE 73; O2SAT 96
== END 2023-05-08 11:10 | disposition home or self-care (01) ==
PROVIDERS: PCP Internal Medicine; Visit Provider Nurse Practitioner Family
DX: J44.9 Chronic obstructive pulmonary disease, unspecified (principal); Z99.81 Dependence on supplemental oxygen
CPT/HCPCS: 99213

== ENCOUNTER → 2023-05-08 10:36 | Outpatient (BNVA) | payer MEDICARE, SELFPAY | PROVIDERS: PCP Internal Medicine; Visit Provider Nurse Practitioner Family | DX: J44.9 Chronic obstructive pulmonary disease, unspecified (principal); Z87.891 Personal history of nicotine dependence; Z99.81 Dependence on supplemental oxygen; Z79.82 Long term (current) use of aspirin; Z79.899 Other long term (current) drug therapy | CPT/HCPCS: 99212 ==

== ENCOUNTER 2023-08-02 14:59 | Outpatient (AMB) | payer MEDICARE, SELFPAY ==
--- NOTE | 2023-08-02 15:02 | MHC.OFFWIV ---
Intake Vital Signs 08/02/23 15:03 Weight 157 lb BP 140/60 H Blood Pressure Location Lt brachial Position Sitting Pulse 77 Pulse Source Pulse Oximeter Pulse Oximetry (%) 89 L Oxygen Delivery Method Nasal Cannula Intake Visit Reasons: EST/weakness/SOB Intake Note: Patient here for weakness in legs and cramping, no energy and sob. Patient Tobacco Use Status: Former Tobacco user Allergies No Known Allergies Allergy (Unknown, Verified 08/02/23 15:05) NOT APPLICABLE Do you need a note to return to daycare/school/sports/work: No HPI HPI Comments History of Present Illness Details This is an 88-year-old male with history of chronic hypoxic respiratory failure on 2 L oxygen around the clock secondary to chronic obstructive pulmonary disease who presents to the office today for sick visit. Patient complaining of generalized weakness, fatigue, and worsening shortness of breath with increased cough and increased sputum production x5 days. he denies any fevers or chills. He denies any chest pain. He denies any abdominal pain or nausea/vomiting/diarrhea. He states he does have some mild shortness of breath at baseline but he has had worsening shortness of breath with less exertion for the past several days. He also has a productive cough at baseline but he has had worsening sputum production and more purulent sputum. Of note, patient tested positive for COVID approximately 2 weeks ago. [facility] Medical History Bilateral carotid artery disease HTN (hypertension) Surgical History Hx of hernia repair Hx of prostatectomy Hx of rotator cuff surgery Family History Father CVD (cardiovascular disease) Mother No problems noted. Social History Alcohol intake: former Patient Tobacco Use Status: Former Tobacco user Review of Systems Const All systems reviewed & are unremarkable except as noted in HPI and below Reports no additional complaints Eyes Reports no additional complaints ENT Reports no additional complaints Card Reports no additional complaints Resp Reports no additional complaints GI Reports no additional complaints Reports no additional complaints Musc Reports no additional complaints Skin/Breast Reports system reviewed and no additional complaints, except as documented Neuro Reports no additional complaints Psych Reports no additional complaints Endo Reports no additional complaints Denis/Lymph Reports no additional complaints Aller/Immun Reports no additional complaints Physical Exam Vital Signs: Last Vital Signs Pulse 77 08/02/23 15:03 BP 140/60 H 08/02/23 15:03 Pulse Ox 89 L 08/02/23 15:03 Oxygen Delivery Method Nasal Cannula 08/02/23 15:03 Const Other: Vital signs reviewed. Constitutional: Non-toxic appearing. No acute distress. Well-developed and well-nourished. HEENT: Normocephalic and atraumatic. Hard of hearing. Moist mucous membranes. No pharyngeal erythema or exudates. Skin: Warm and dry. No rashes or lesions noted. Neck: Full and painless range of motion. No cervical lymphadenopathy. Cardio: Regular rate and rhythm. No murmurs, gallops, or rubs. No lower extremity edema. No JVD. Pulmonary: No respiratory distress. No accessory muscle usage. Diminished breath sounds throughout. Diffuse expiratory wheezing and rhonchorous breath sounds. Gastrointestinal: Soft, nontender, and nondistended in all 4 quadrants. Normoactive bowel sounds in all 4 quadrants. Genitourinary: No CVA tenderness. Musculoskeletal: Normal range of motion in joints throughout the body. No deformity or other signs of injury. Neuro: Alert and oriented x4. Cranial nerves 2-12 grossly intact. No focal deficits appreciated. Psych: Normal mood and affect. Assessment & Plan Assessment & Plan (1) Acute on chronic respiratory failure with hypoxia: Code(s): J96.21 - Acute and chronic respiratory failure with hypoxia Plan: This is an 88-year-old male with past medical history significant for chronic hypoxic respiratory failure on 2 L oxygen around the clock in the setting of chronic obstructive pulmonary disease who presented to the walk-in clinic complaining of generalized weakness and fatigue, worsening shortness of breath, and worsening cough with increased sputum production. Upon initial assessment, patient was found to be mildly hypoxic to 89% on his 2 L; after ambulating to the room and having a conversation with me, he desaturated to 82% on his home 2 L. I am concerned that patient could have pneumonia causing an acute COPD exacerbation and acute on chronic respiratory failure with hypoxia. I recommended that patient proceed directly to the emergency room for further evaluation and management as he can get a quicker workup in the emergency room. Patient at first was hesitant and wanted to drive his car home. I explained the risks of hypoxia especially while driving himself to the hospital. Patient seemed to understand but he was still hesitant. I called the patient's daughter/emergency contact and explained the situation to her. I have called 911 and patient will be brought to the hospital via ambulance. Coding Level of Care Code Est Pt Level 3 (45170) Diagnoses Acute on chronic respiratory failure with hypoxia J96.21
[2023-08-02 15:03] VITALS: BP 140/60; PULSE 77; O2SAT 89
== END 2023-08-02 15:49 | disposition home or self-care (01) ==
PROVIDERS: PCP Internal Medicine; Visit Provider Physician Assistant Medical
DX: J96.21 Acute and chronic respiratory failure with hypoxia (principal)
CPT/HCPCS: 99213

== ENCOUNTER 2023-08-02 16:09 | Inpatient (IN) | payer MEDICARE, SELFPAY ==
[2023-08-02] VITALS (8 sets, daily range): BP systolic 131–152; BP diastolic 49–67; PULSE 67–102; RESP 18–24; TEMP 36.6–37.1; O2SAT 90–98; BMI 24.3; BMI 24.9
--- NOTE | ~2023-08-02 | XR_ITS ---
EXAMINATION: XR CHEST CLINICAL INFORMATION: Dyspnea COMPARISON: Previous day TECHNIQUE: Frontal view of the chest was obtained. FINDINGS: Diffuse bronchial wall thickening. Linear reticular markings present in the mid and lower lungs bilaterally, more pronounced on the right, and more prominent from the previous day possibly representing a developing atypical pneumonitis. No pleural effusion or pneumothorax. Normal heart size and pulmonary vascularity. XR/XR chest 1V IMPRESSION: * Bronchial wall thickening redemonstrated with worsening peribronchial airspace component in the right lung possibly representing developing atypical pneumonitis.
--- NOTE | ~2023-08-02 | US_ITS ---
EXAMINATION: US RETROPERITONEAL LIMITED (RENAL ONLY) CLINICAL INFORMATION: Hematuria. COMPARISON: CT abdomen and pelvis 01/16/2023. TECHNIQUE: Real-time imaging of the kidneys. This is a somewhat limited portable bedside ultrasound examination. FINDINGS: RIGHT KIDNEY: The right kidney measures approximately 9 x 4.5 x 4.4 cm (SAG x AP x TRV). The kidney is normal in size, contour, and echogenicity. Renal cortical thickness is normal. No calculi are seen. No focal parenchymal lesions. No hydronephrosis. LEFT KIDNEY: The left kidney measures approximately 9.9 x 5.1 x 4 cm (SAG x AP x TRV). The kidney is normal in size, contour, and echogenicity. Renal cortical thickness is normal. No renal calculi are seen. No hydronephrosis. There is a 1.5 cm simple cyst of the upper pole. No renal imaging follow-up recommended. URINARY BLADDER: Empty, not well evaluated. US/US retroperitoneal limited IMPRESSION: No specific source of hematuria is identified. No sonographic evidence of renal calculi or hydronephrosis.
--- NOTE | ~2023-08-02 | XR_ITS ---
EXAMINATION: XR CHEST CLINICAL INFORMATION: Shortness of breath. COMPARISON: 02/07/2023. TECHNIQUE: Frontal view of the chest was obtained. FINDINGS: The cardiomediastinal silhouette is within normal limits. There is mild diffuse increased markings. There is no focal consolidation or pleural effusion. The bony structures and soft tissues are unremarkable XR/XR chest 1V IMPRESSION: Mild diffuse increased interstitial markings possibly chronic. Change related to bronchitis could have this appearance. Edema considered less likely. There is no focal lung consolidation or pleural effusion.
--- NOTE | 2023-08-02 16:18 | ED_ITS ---
HPI - SOB/Dyspnea General Chief Complaint: Upper Respiratory Symptoms Stated Complaint: sob, per ems Time Seen by Provider: 08/02/23 16:16 Source: patient Mode of arrival: EMS Limitations: no limitations History of Present Illness HPI Narrative: Patient 88 years old with history of COPD oxygen dependent on 2 L, hypertension, peripheral artery disease comes in with increased shortness of breath sent from PCP office for increased shortness of breath and feeling weak but take with increased cough and increased mucopurulent phlegm production for last 5 days no fever no chills no chest pain no nausea vomiting and diarrhea patient was COVID positive approximately 2 weeks ago noticed to be mildly hypoxic 89% on 2 L at PCP office dropped to 82% while talking to PCP just prior to arrival patient patient is on Xarelto for? Peripheral arterial disease patient also noticed blood mixed stool yesterday and occasionally black stool for last no abdominal pain Related Data Home Medications Medication Instructions Recorded Confirmed aspirin 81 mg tablet,delayed 81 mg PO DAILY 02/22/21 08/02/23 release (Adult Low Dose Aspirin) atorvastatin 10 mg tablet 10 mg PO DAILY 02/22/21 08/02/23 citalopram 20 mg tablet 20 mg PO DAILY 02/22/21 08/02/23 omeprazole 20 mg capsule,delayed 20 mg PO DAILY 02/22/21 08/02/23 release ipratropium bromide 42 mcg (0.06 2 spray intranasal TID 08/02/23 08/02/23 %) nasal spray rivaroxaban 2.5 mg tablet (Xarelto) 2.5 mg PO BID 08/02/23 08/02/23 ropinirole 2 mg tablet 2 mg PO BEDTIME 08/02/23 08/02/23 Previous Rx's Medication Instructions Recorded albuterol sulfate 90 mcg/actuation 2 puff inhalation Q4-6H PRN 06/12/22 aerosol inhaler (ProAir HFA) shortness of breath or wheezing 60 days #6.7 grams fluticasone fur. 200 mcg-umeclid 1 inh inhalation DAILY #60 ea 05/08/23 62.5 mcg-vilant 25 mcg inhalat.powder (Trelegy Ellipta) albuterol sulfate 2.5 mg/3 mL 2.5 mg (3 mL) inhalation Q4-6H PRN 05/28/23 (0.083 %) solution for nebulization shortness of breath or wheezing #90 mL Allergies Allergy/AdvReac Type Severity Reaction Status Date / Time No Known Allergies Allergy Unknown NOT Verified 08/02/23 15:05 APPLICABLE Review of Systems 2 Review of Systems: Yes all other systems are reviewed and are negative [facility] Past Medical History Medical History HTN (hypertension) Bilateral carotid artery disease Surgical History Hx of prostatectomy Hx of hernia repair Hx of rotator cuff surgery Family History Family History Father CVD (cardiovascular disease) Mother No problems noted. Social History Social History Household Members: None Housing: House Do you presently have visiting nurse or other home services: Yes Alcohol intake: former Patient Tobacco Use Status: Former Tobacco user Cigarette Packs Per Day: 2 Cigarettes Per Day: 40.0 Physical Exam 2 Vital Signs: Vital Signs: Last Vital Signs Temp 98.7 F 08/02/23 23:15 Pulse 99 08/03/23 00:24 Resp 20 08/03/23 00:24 BP 152/67 H 08/02/23 23:15 Pulse Ox 91 L 08/02/23 23:15 O2 Del Method Nasal Cannula 08/02/23 23:15 O2 Flow Rate 3 08/02/23 23:15 Oxygen Flow Rate 3 08/02/23 16:57 BMI result Body Mass Index 24.3 Appearance: Alert. Oriented X3. Moderate respiratory distress distress. pallor++ Eyes: PERRLA, No Nystagmus ENT: Pharynx normal. Oral Mucosa moist Neck: Normal inspection. Neck supple. CVS: Normal heart rate and rhythm. Pulses normal. Respiratory: No respiratory distress. Equal air entry bilateral, bilateral wheezing no crackles Abdomen: Soft and nontender. Bowel sounds are present, no mass palpable, no CVA tenderness rectal: maroon stool Skin: Skin warm and dry. Normal skin color. Normal skin turgor. Extremities: No lower extremity edema. No calf tenderness Neuro: Oriented X 3. No motor deficit. No sensory deficit.No cerebellar signs , cranial nerves II-XII intact Medications Administered Generic Name Dose Route Start Last Admin Trade Name Freq PRN Reason Stop Dose Admin Albuterol/Ipratropium 3 ml 08/02/23 20:00 08/02/23 19:15 Albuterol/Iprat 2.5/0.5mg 3 Ml Ampul.Neb INHALE 3 ml RQ4H WHILE AWAKE RAAD Administration Albuterol/Ipratropium 3 ml 08/02/23 19:06 08/03/23 00:23 Albuterol/Iprat 2.5/0.5mg 3 Ml Ampul.Neb INHALE 3 ml Q4H PRN Administration Wheezing Ipratropium [place] 2 spray 08/02/23 21:00 08/03/23 00:43 Ipratropium [place] Adonis 0.06 % 15 Ml [place] NOSTRIL-B Not Given TID RAAD Melatonin 6 mg 08/02/23 19:05 08/02/23 22:02 Melatonin 3 Mg Tablet PO 6 mg BEDTIME PRN Administration Insomnia Ropinirole HCl 2 mg 08/02/23 21:00 08/03/23 00:04 Ropinirole Hcl 2 Mg Tablet PO 2 mg BEDTIME RAAD Administration Sodium Chloride 3 ml 08/03/23 00:00 08/03/23 00:57 0.9 % Sodium Chloride Flush 3 Ml Syringe IVFLUSH Not Given QSHIFT RAAD Discontinued Medications Generic Name Dose Route Start Last Admin Trade Name Pedro PRN Reason Stop Dose Admin Albuterol Sulfate 5 mg/ 0 mg 08/02/23 16:46 08/02/23 16:55 Albuterol/Ipratropium 3 ml INHALE 08/02/23 16:47 2.5 each ONCE ONE Administration Guaifenesin/Codeine Phosphate 10 ml 08/02/23 19:17 08/02/23 19:50 Guaifen/Codeine Sf 200/20/10ml 10 Ml Liquid PO 08/02/23 19:18 10 ml ONCE ONE Administration Ceftriaxone Sodium 1 gm/ 50 mls @ 100 mls/hr 08/02/23 16:29 08/02/23 18:37 Sodium Chloride IV 08/02/23 16:58 Infused ONCE ONE Infusion Sodium Chloride 100 mls @ 100 mls/hr 08/02/23 17:24 08/03/23 00:09 Ns IV 08/02/23 18:23 Infused ONCE ONE Infusion Sodium Chloride 1,000 mls @ 999 mls/hr 08/02/23 23:19 08/02/23 23:54 Ns IV 08/03/23 00:19 999 mls/hr .Q1H1M STA Administration Methylprednisolone Sodium Succinate 125 mg 08/02/23 16:29 08/02/23 17:18 Methylprednisolone Sod Succ 125 Mg/2 Ml Vial IVPUSH 08/02/23 16:30 125 mg ONCE ONE Administration Pantoprazole Sodium 80 mg 08/02/23 19:17 08/02/23 19:50 Pantoprazole Sodium 40 Mg/10 Ml Vial IVPUSH 08/02/23 19:18 80 mg ONCE ONE Administration Medical Decision Making Medical Decision Making [facility] Narrative: Patient increased shortness of breath and weakness on Xarelto with rectal bleed H&H decreased to 6.4 likely the cause for shortness of breath and weakness will give 2 units of blood transfusion in the ER no signs of CHF at this time will admit for further evaluation patient had elevated lactic acid level likely type B post nebulizing treatment patient is not septic Differential Diagnosis Differential Diagnoses: The differential diagnosis associated with the presentation includes COPD exacerbation/severe anemia/uremia/pneumonia/CHF Admission/Observation Consideration of admission/observation: Escalation of care including admission/observation considered Consult Healthcare Provider Management of the patient was discussed with: Hospitalist Lab Data [facility] Lab Attestation statement: I reviewed the patient's lab results. 08/02/23 17:11 08/02/23 17:14 Labs: Lab Results 08/02/23 08/02/23 08/02/23 Range/Units 17:10 17:11 17:14 WBC 10.2 (4.8-10.8) X10*3/uL RBC 3.11 L D (4.60-5.80) X10*6/uL Hgb 6.4 L* D (14.0-18.0) g/dl Hct 22.3 L D (42.0-52.0) % MCV 71.7 L (80.0-98.0) fL MCH 20.6 L (27.0-33.0) pg MCHC 28.7 L (31.0-36.0) g/dl RDW 19.3 H (11.0-16.0) % Plt Count 283 (160-400) X10*3/uL MPV 11.3 (9.4-12.4) fL Immature Gran % (Auto) 0.3 (0.0-0.4) % Neut % (Auto) 72.6 (45-73) % Lymph % (Auto) 14.3 L (20-40) % [place] % (Auto) 7.4 (2-11) % Eos % (Auto) 4.7 H (0-4) % Baso % (Auto) 0.7 (0-2) % Lymph # (Auto) 1.5 (1.2-4.9) X10*3/uL [place] # (Auto) 0.8 (0.1-1.2) X10*3/uL Eos # (Auto) 0.5 H (0.0-0.4) X10*3/uL Baso # (Auto) 0.1 (0.0-0.2) X10*3/uL Abs Immat Gran (auto) 0.03 (0.00-0.03) X10*3/uL Absolute Neuts (auto) 7.4 (2.0-8.3) x10*3/uL Absolute Nucleated RBC 0.000 (0.0-0.012) X10*3/uL Nucleated RBC % (auto) 0.0 (0.0-0.2) /100WBC PT 16.8 H (11.1-13.3) SEC INR 1.4 H (0.9-1.1) APTT 32.2 (26.0-36.4) SEC VBG pH (7.32-7.43) VBG pCO2 mmHg VBG pO2 mmHg VBG HCO3 (22-26) mmol/L VBG O2 Saturation % VBG Base Excess mmol/L Sodium 141 (135-145) mmol/L Potassium 3.5 (3.3-5.1) mmol/L Chloride 115 H (96-108) mmol/L Carbon Dioxide 18 L (22-29) mmol/L Anion Gap 12 (12-20) BUN 19 H (9-16) mg/dL Creatinine 1.00 (0.5-1.4) mg/dL Estim Creat Clear Calc 50.3 Estimated GFR > 60 Random Glucose 119 H (60-115) mg/dL Lactic Acid 2.7 H* (0.5-2.0) mmol/L Calcium 8.0 L D (8.4-10.2) mg/dL Magnesium 2.1 (1.6-2.6) mg/dL Total Bilirubin 0.4 (0.0-1.0) mg/dL AST 24 (5-37) U/L ALT 11 (0-40) U/L Alkaline Phosphatase 67 (39-117) U/L Troponin I High Sens 6.9 (<3.5-35.0) ng/L B-Natriuretic Peptide 237 H (<100) pg/mL Total Protein 5.8 L (6.5-8.0) g/dL Albumin 3.4 L (3.5-5.0) g/dL Stool Occult Blood (NEGATIVE) Blood Type Antibody Screen Crossmatch 08/02/23 08/02/23 Range/Units 17:19 18:04 WBC (4.8-10.8) X10*3/uL RBC (4.60-5.80) X10*6/uL Hgb (14.0-18.0) g/dl Hct (42.0-52.0) % MCV (80.0-98.0) fL MCH (27.0-33.0) pg MCHC (31.0-36.0) g/dl RDW (11.0-16.0) % Plt Count (160-400) X10*3/uL MPV (9.4-12.4) fL Immature Gran % (Auto) (0.0-0.4) % Neut % (Auto) (45-73) % Lymph % (Auto) (20-40) % [place] % (Auto) (2-11) % Eos % (Auto) (0-4) % Baso % (Auto) (0-2) % Lymph # (Auto) (1.2-4.9) X10*3/uL [place] # (Auto) (0.1-1.2) X10*3/uL Eos # (Auto) (0.0-0.4) X10*3/uL Baso # (Auto) (0.0-0.2) X10*3/uL Abs Immat Gran (auto) (0.00-0.03) X10*3/uL Absolute Neuts (auto) (2.0-8.3) x10*3/uL Absolute Nucleated RBC (0.0-0.012) X10*3/uL Nucleated RBC % (auto) (0.0-0.2) /100WBC PT (11.1-13.3) SEC INR (0.9-1.1) APTT (26.0-36.4) SEC VBG pH 7.33 (7.32-7.43) VBG pCO2 46 mmHg VBG pO2 45 mmHg VBG HCO3 24 (22-26) mmol/L VBG O2 Saturation 60.0 % VBG Base Excess -1.0 mmol/L Sodium (135-145) mmol/L Potassium (3.3-5.1) mmol/L Chloride (96-108) mmol/L Carbon Dioxide (22-29) mmol/L Anion Gap (12-20) BUN (9-16) mg/dL Creatinine (0.5-1.4) mg/dL Estim Creat Clear Calc Estimated GFR Random Glucose (60-115) mg/dL Lactic Acid (0.5-2.0) mmol/L Calcium (8.4-10.2) mg/dL Magnesium (1.6-2.6) mg/dL Total Bilirubin (0.0-1.0) mg/dL AST (5-37) U/L ALT (0-40) U/L Alkaline Phosphatase (39-117) U/L Troponin I High Sens (<3.5-35.0) ng/L B-Natriuretic Peptide (<100) pg/mL Total Protein (6.5-8.0) g/dL Albumin (3.5-5.0) g/dL Stool Occult Blood POSITIVE (NEGATIVE) Blood Type O Positive Antibody Screen NEGATIVE Crossmatch See Detail Independent Interpretation I performed an independent interpretation of an: EKG Interpretation: Normal sinus rhythm heart rate 99 beats per minute PVCs no acute ST-T changes no acute ischemia Critical Care Time Critical Care Time Critical Care Time: Yes Total Critical Care Time: 55 Attestation: The patient was critically ill with a high probability of imminent or life threatening deterioration. I spent greater than 60 minutes of discontinuous time evaluating the patient,delivering critical care at the bedside, discussing and evaluating pertinent data with consultants. Critical care time does not include time spent performing separately billable procedures or teaching. Total time spent performing critical care was 55 minutes. Discharge Plan Discharge Clinical Impression: Anemia, SOB (shortness of breath) on exertion, COPD (chronic obstructive pulmonary disease), GI (gastrointestinal bleed) Patient Disposition: Admitted As Inpatient Interventions: Admission Worksheet (ED) Last Done: 08/02/23 23:02 Discharge Date/Time: 08/02/23 23:04
--- NOTE | 2023-08-02 16:41 | ECG_ITS ---
Test Reason : CHEST PAIN Blood Pressure : / mmHG Vent. Rate : 099 BPM Atrial Rate : 099 BPM P-R Int : 188 ms QRS Dur : 086 ms QT Int : 388 ms P-R-T Axes : 049 060 058 degrees QTc Int : 497 ms Sinus rhythm with occasional Premature ventricular complexes ST depression in Inferior leads Lateral leads Abnormal ECG When compared with ECG of 12-JAN-2023 15:54, Premature ventricular complexes are now Present Vent. rate has increased BY 41 BPM Left posterior fascicular block is no longer Present ST now depressed in Lateral leads Inferior leads T wave inversion no longer evident in Lateral leads consider limb lead reversal in prior ekg Referred By: Dick Franklin Electronically Signed By:BESSIE HURD MD
[2023-08-02] MEDS: Albuterol Sulfate 5 MG, Albuterol/Iprat 2.5/0.5MG 3 ML 3 ML INHALE (16:55)
[2023-08-02] MEDS: methylPREDNISolone Sod Succ 125 MG/2 ML VIAL IVPUSH (17:18)
[2023-08-02] MEDS: cefTRIAXone sodium 1 GM in 0.9 % Sodium Chloride 50 ML IV (17:18)
[2023-08-02 17:19] LABS: MANUAL DIFF FLAG NO
[2023-08-02 17:21] LABS: Basophils Absolute Auto 0.1 X10*3/uL (0.0-0.2); Basophils Percent Auto 0.7 % (0-2); Eosinophils Absolute Auto 0.5 X10*3/uL (0.0-0.4); Eosinophils Percent Auto 4.7 % (0-4); Hematocrit 22.3 % (42.0-52.0); Imm Gran Abs Auto 0.03 X10*3/uL (0.00-0.03); Imm Gran Pct Auto 0.3 % (0.0-0.4); Lymphocytes Absolute Auto 1.5 X10*3/uL (1.2-4.9); Lymphocytes Percent Auto 14.3 % (20-40); Mean Corpuscular HGB Conc 28.7 g/dl (31.0-36.0); Mean Corpuscular Hemoglobin 20.6 pg (27.0-33.0); Mean Corpuscular Volume 71.7 fL (80.0-98.0); Mean Platelet Volume 11.3 fL (9.4-12.4); Monocytes Absolute Auto 0.8 X10*3/uL (0.1-1.2); Monocytes Percent Auto 7.4 % (2-11); Neutrophils Absolute Auto 7.4 x10*3/uL (2.0-8.3); Neutrophils Percent Auto 72.6 % (45-73); Platelet Count 283 X10*3/uL (160-400); Red Blood Count 3.11 X10*6/uL (4.60-5.80); Red Cell Distribution Width 19.3 % (11.0-16.0); White Blood Count 10.2 X10*3/uL (4.8-10.8)
[2023-08-02 17:24] LABS: Hemoglobin 6.4 g/dl (14.0-18.0)
[2023-08-02 17:25] LABS: VBG HCO3 24 mmol/L (22-26); VBG pCO2 46 mmHg; VBG pH 7.33 (7.32-7.43); VBG pO2 45 mmHg
[2023-08-02 17:26] LABS: Venous Blood Gas Refer to POC result
[2023-08-02 17:30] LABS: INTERNATIONAL NORM RATIO 1.4 (0.9-1.1); Prothrombin Time 16.8 SEC (11.1-13.3)
[2023-08-02 17:32] LABS: Partial Thromboplastin Time 32.2 SEC (26.0-36.4)
[2023-08-02 17:44] LABS: Lactic Acid 2.7 mmol/L (0.5-2.0)
[2023-08-02 17:47] LABS: Alanine Aminotransferase 11 U/L (0-40); Albumin Level 3.4 g/dL (3.5-5.0); Alkaline Phosphatase 67 U/L (39-117); Anion Gap 12 (12-20); Aspartate Amino Transferase 24 U/L (5-37); Bilirubin Total 0.4 mg/dL (0.0-1.0); Blood Urea Nitrogen 19 mg/dL (9-16); Carbon Dioxide 18 mmol/L (22-29); Chloride 115 mmol/L (96-108); Creatinine Clr Calc Pharmacy 50.3; Estimated Glomerular Filt Rate > 60; Glucose Random 119 mg/dL (60-115); Magnesium 2.1 mg/dL (1.6-2.6); Potassium 3.5 mmol/L (3.3-5.1); Sodium 141 mmol/L (135-145); Total Protein 5.8 g/dL (6.5-8.0)
[2023-08-02 17:49] LABS: Troponin-I High Sensitivity 6.9 ng/L (<3.5-35.0)
[2023-08-02 17:54] LABS: B Type Natriuretic Peptide 237 pg/mL (<100)
--- NOTE | 2023-08-02 18:09 | P.HPHOSP_ITS ---
History of Present Illness Date of Service: 08/02/23 Attending physician on admission: Ricardo Armstrong Chief Complaint: SOB, fatigue Pt is an 88-year-old male with a PMH significant for?COPD, chronic hypoxic respiratory failure on 2L home O2, HTN, PAD on Xarelto and aspirin, GERD and restless legs syndrome who presents to the ED from urgent care for evaluation of shortness of breath and increased hypoxia. Patient reports experienced increasing SOB for the past few days. Yesterday he felt especially poorly and attempted to see his PCP, but he was on vacation. SOB persisted this morning and patient decided to visit a walk-in clinic. Patient with chronic hypoxia on 2 L home O2, was noted to be satting in the low 80s at urgent care earlier today while speaking to a provider. Labs in the ED significant for H&H of 6.4/22.3. Patient reports increased fatigue and noticing both bright red blood in his stool and that his stool has been dark colored/black for the past 2-3 days. Patient is on both Xarelto and aspirin PAD. Denies any other recent or chronic NSAID use. Denies significant increase in chronic cough. No fever, chills, nausea, vomiting, diarrhea, abdominal pain. No chest pain/pressure, palpitations. In the ED patient was afebrile but tachypneic up 24, slightly hypertensive to 140/60, satting 89% on 2 L NC. Labs were significant for H&H of 6.4/22.3, lactic acid 2.7, BNP 237. Stool positive for occult blood. CXR showed mild diffuse increased interstitial markings possibly chronic, or related to bronchitis with edema less likely. Did not find any focal lung consolidation or pleural effusion. EKG demonstrated mild ST depressions in V4 and V5. Pt was treated with DuoNebs, Solu-Medrol, ceftriaxone. Pt will be admitted to the hospital for treatment and further evaluation of acute symptomatic blood loss anemia. Review of Systems 2 Review of Systems: Increased SOB Fatigue Hematochezia, melena Chronic cough Hypoxia Denies fever, chills, nausea, vomiting, abdominal pain No chest pain/pressure, palpitations [facility] Medical History HTN (hypertension) Bilateral carotid artery disease Family History Father CVD (cardiovascular disease) Mother No problems noted. Surgical History Hx of prostatectomy Hx of hernia repair Hx of rotator cuff surgery Social History Alcohol intake: former Patient Tobacco Use Status: Former Tobacco user Smoked in Last 30 Days: No Use of substances other than those prescribed or required for medical reasons: No Advance Directives: No Advance Directives Information Provided: No Meds Allergies Allergy/AdvReac Type Severity Reaction Status Date / Time No Known Allergies Allergy Unknown NOT Verified 08/02/23 15:05 APPLICABLE Active Medications: Current Medications Sodium Chloride (Ns) 100 mls @ 100 mls/hr IV ONCE ONE Stop: 08/02/23 18:23 Sodium Chloride (Ns) 100 mls @ 100 mls/hr IV ONCE ONE Stop: 08/02/23 18:23 Home Medications Medication Instructions Recorded Confirmed Last Taken Type aspirin 81 mg tablet,delayed 81 mg PO DAILY 02/22/21 08/02/23 08/02/23 History release (Adult Low Dose Aspirin) atorvastatin 10 mg tablet 10 mg PO DAILY 02/22/21 08/02/23 08/02/23 History citalopram 20 mg tablet 20 mg PO DAILY 02/22/21 08/02/23 08/02/23 History omeprazole 20 mg capsule,delayed 20 mg PO DAILY 02/22/21 08/02/23 08/02/23 History release ipratropium bromide 42 mcg (0.06 2 spray intranasal TID 08/02/23 08/02/23 08/02/23 History %) nasal spray rivaroxaban 2.5 mg tablet (Xarelto) 2.5 mg PO BID 08/02/23 08/02/23 08/02/23 History ropinirole 2 mg tablet 2 mg PO BEDTIME 08/02/23 08/02/23 08/02/23 History Physical Exam 2 Vital Signs and Narrative: Vital Signs: Last Vital Signs Temp 98 F 08/02/23 16:24 Pulse 89 08/02/23 17:21 Resp 20 08/02/23 17:21 BP 141/49 H 08/02/23 16:57 Pulse Ox 98 08/02/23 17:21 O2 Del Method Nasal Cannula 08/02/23 17:21 O2 Flow Rate 3 08/02/23 17:21 Oxygen Flow Rate 3 08/02/23 16:57 BMI result Body Mass Index 24.3 Constitutional: Alert, in no acute distress. Pt looks pale, especially in lower extremities. Mental Status: Oriented to person, place and time. Eyes: Pupils are equal, round, and reactive to light. Ear, Nose, and Throat: Oropharynx clear, mucous membranes moist. Ears and nose without deformities. Trachea midline. Respiratory: Clear to auscultation bilaterall, though lung sounds diminished. Cardiovascular: S1, S2 regular. No murmurs, rubs, or gallops. Gastrointestinal: Abdomen soft, non-tender, non-distended. Normal bowel sounds. Neurologic: Cranial nerves II-XII are grossly intact bilaterally. No focal neurological deficits. Moves all extremities spontaneously. Skin: No rashes or lesions noted. Musculoskeletal: No cyanosis or clubbing. Extremities: No edema. Psychiatric: Normal mood and affect. Results Labs 08/02/23 17:11 08/02/23 17:14 Labs: Laboratory Results - last 24 hr 08/02/23 08/02/23 08/02/23 17:10 17:11 17:14 MCV 71.7 L MCH 20.6 L MCHC 28.7 L RDW 19.3 H Plt Count 283 MPV 11.3 Immature Gran % (Auto) 0.3 Neut % (Auto) 72.6 Lymph % (Auto) 14.3 L [place] % (Auto) 7.4 Eos % (Auto) 4.7 H Baso % (Auto) 0.7 Lymph # (Auto) 1.5 [place] # (Auto) 0.8 Eos # (Auto) 0.5 H Baso # (Auto) 0.1 Abs Immat Gran (auto) 0.03 Absolute Neuts (auto) 7.4 Absolute Nucleated RBC 0.000 Nucleated RBC % (auto) 0.0 PT 16.8 H INR 1.4 H APTT 32.2 VBG pH VBG pCO2 VBG pO2 VBG HCO3 VBG O2 Saturation VBG Base Excess Anion Gap 12 Estim Creat Clear Calc 50.3 Estimated GFR > 60 Random Glucose 119 H Lactic Acid 2.7 H* Calcium 8.0 L D Magnesium 2.1 Total Bilirubin 0.4 AST 24 ALT 11 Alkaline Phosphatase 67 B-Natriuretic Peptide 237 H Total Protein 5.8 L Albumin 3.4 L 08/02/23 17:19 MCV MCH MCHC RDW Plt Count MPV Immature Gran % (Auto) Neut % (Auto) Lymph % (Auto) [place] % (Auto) Eos % (Auto) Baso % (Auto) Lymph # (Auto) [place] # (Auto) Eos # (Auto) Baso # (Auto) Abs Immat Gran (auto) Absolute Neuts (auto) Absolute Nucleated RBC Nucleated RBC % (auto) PT INR APTT VBG pH 7.33 VBG pCO2 46 VBG pO2 45 VBG HCO3 24 VBG O2 Saturation 60.0 VBG Base Excess -1.0 Anion Gap Estim Creat Clear Calc Estimated GFR Random Glucose Lactic Acid Calcium Magnesium Total Bilirubin AST ALT Alkaline Phosphatase B-Natriuretic Peptide Total Protein Albumin Imaging Radiologist's Impressions: Impressions Chest X-Ray 08/02/23 16:55 IMPRESSION: Mild diffuse increased interstitial markings possibly chronic. Change related to bronchitis could have this appearance. Edema considered less likely. There is no focal lung consolidation or pleural effusion. Assessment and Plan (1) Blood loss anemia: Status: Acute Plan Pt is an 88-year-old male with a PMH significant for?COPD, chronic hypoxic respiratory failure on 2L home O2, HTN, PAD on Xarelto and aspirin, GERD and restless legs syndrome who presents to the ED from urgent care for evaluation of shortness of breath and increased hypoxia. Workup revealed H&H of 6.4/22.3. Patient admitted to the hospital on telemetry for further workup and evaluation of symptomatic acute blood loss anemia. Acute symptomatic blood loss anemia Patient with increased SOB, fatigue, hematochezia, melena H&H 6.4/22.3, stool positive for occult blood Received 2 units of PRBCs in ED Received IVF in ED Will hold Xarelto, aspirin IV Protonix NPO after midnight GI consult Monitor on telemetry Follow CBC Acute on chronic hypoxic respiratory failure in the setting of COPD Patient does not seem to be in acute COPD exacerbation: Lungs diminished but CTA Patient currently satting at 98% on 3L NC Increased SOB likely secondary to acute blood loss anemia DuoNebs, continue home inhalers Tachycardia, tachypnea Likely secondary to acute blood loss anemia, not sepsis No clear source of infection: Patient afebrile, no leukocytosis, CXR with no consolidation or evidence of pneumonia HLD Continue statin GERD Will give IV PPI, hold home meds PAD Hold Xarelto, aspirin Restless legs syndrome Continue repeat urine all Full Code Attending:?Dr. Armstrong DVT Prophylaxis: Pneumatic boots d/t acute GI bleed Pt will require a hospitalization of at least two nights for treatment of?acute symptomatic blood loss anemia. Patient will require blood transfusions, colonoscopy/endoscopy, close monitoring of labs, and specialist consultation. Time Spent With Patient Time: Total time managing care of this patient today ____ minutes. Quality Stroke Does the patient have a stroke diagnosis?: No VTE Prior VTE?: No VTE Risk Level:: Medical - moderate - high VTE Device Contraindication: N/A - Device Ordered VTE Drug Contraindication: Treatment Not Indicated
[2023-08-02 18:13] LABS: OBS Int Ctl Valid YES; OBS1 POSITIVE (NEGATIVE)
--- NOTE | 2023-08-02 18:53 | PHA.MEDREC ---
Pharmacy Consult ? Medication Reconciliation Pharmacy has completed the medication reconciliation. Patient poor historian, but able to confirm that he has 6 pills that he takes and some inhalers. Used claim history and patient info
[2023-08-02] MEDS: Albuterol/Iprat 2.5/0.5MG 3 ML AMPUL.NEB INHALE (19:15)
[2023-08-02 19:18] LABS: Reflex Lactate? Lactic Acid Added
[2023-08-02] MEDS: guaiFEN/Codeine SF 200/20/10ML 10 ML LIQUID PO (19:50)
[2023-08-02] MEDS: Pantoprazole Sodium 40 MG/10 ML VIAL 80 MG IVPUSH (19:50)
[2023-08-02 20:25] LABS: ~Lactic Acid-LAB USE ONLY 4.4 mmol/L (0.5-2.0)
[2023-08-02] MEDS: Melatonin 3 MG TABLET 6 MG PO (22:02)
[2023-08-02 22:07] LABS: Reflex Lactate? 2 Y
[2023-08-02 23:10] LABS: ~Lactic Acid-LAB USE ONLY 5.5 mmol/L (0.5-2.0)
[2023-08-02] MEDS: 0.9 % Sodium Chloride 1,000 ML 999 ML IV (23:54)
[2023-08-03] VITALS (15 sets, daily range): BP systolic 125–172; BP diastolic 51–70; PULSE 78–107; RESP 18–24; TEMP 37.2–37.7; O2SAT 91–96
--- NOTE | 2023-08-03 | ECG_ITS ---
Test Reason : anterior TWIs Blood Pressure : / mmHG Vent. Rate : 090 BPM Atrial Rate : 090 BPM P-R Int : 218 ms QRS Dur : 096 ms QT Int : 398 ms P-R-T Axes : 051 059 056 degrees QTc Int : 486 ms Sinus rhythm with 1st degree A-V block Nonspecific ST abnormality Abnormal ECG When compared with ECG of 02-AUG-2023 17:46, Premature ventricular complexes are no longer Present VA interval has increased ST less depressed in Inferior leads Lateral leads Referred By: Cecelia Dexter Electronically Signed By:BESSIE HURD MD
[2023-08-03] MEDS: rOPINIRole HCL 2 MG TABLET PO ×2 (00:04→21:13)
[2023-08-03] MEDS: Albuterol/Iprat 2.5/0.5MG 3 ML AMPUL.NEB INHALE ×5 (00:23→18:53)
[2023-08-03] MEDS: Furosemide 40 MG/4 ML VIAL IVPUSH (00:56)
[2023-08-03 01:10] LABS: ABG Base Excess -6.1 mmol/L; ABG HCO3 16 mmol/L (22-26); ABG pCO2 25 mmHg (32-45); ABG pH 7.43 (7.35-7.45); ABG pO2 68 mmHg (83-108)
--- NOTE | 2023-08-03 01:15 | PM.EVENT ---
Event Note Date of Service: 08/03/23 Event Note: Nurse reported dyspnea. Obtained ABG and Chest Xray. Bilateral crackles upon examination and noticed increased work of breathing. Will give Lasix and follow up on ABG and x-ray. Vitals stable Time Spent With Patient Time: Total time managing care of this patient today ____ minutes.
[2023-08-03 04:32] LABS: ABG Refer to POC result
[2023-08-03] MEDS: Morphine Sulfate 2 MG/ML CARTRIDGE 1 MG IVPUSH (04:33)
--- NOTE | 2023-08-03 06:56 | PC.NURSE ---
Patient arrived to S4 for med-tele from ED at 23:00 (08/02). First of two ordered units of blood infusing on arrival. VSS on arrival. NSR-ST 90's to low 100's on tele with occassional PACs and rare PVCs. Pt [place] POSTA, reports his hearing aids are at home. Alert, oriented and answering assessment questions appropriately on arrival though pt increasingly forgetful, confused at times, and impulsive, requiring frequent redirecting. Camera placed in room in addition to bed alarm and other high fall safety measures. Critical lactate of 5.5 resulted shortly after pt arrival to unit. Covering Dr. Armstrong notified, 1L normal saline bolus to be given over one hour per MD written order. Approx 450ml into fluid bolus complained of trouble breathing and I don't feel right with increased WOB and sob noted. Fluid bolus stopped and Dr. Armstrong notified with written orders to continue to hold fluid bolus and continue RBC instead. RT notified and requested to bedside for updraft treatment. Continuous o2 monitoring ordered and placed. 40mg IV lasix ordered and given. CXR and ABG also ordered and obtained. [place] catheter placed s/p lasix for voiding though pt impuslive and pulled it off >3 times. Pt insisting to stand to void but would have significant LYLES and desat to low/mid 80's. Vitals obtained, stable. Dr. Armstrong notified, order for morphine and cornejo cath. +Effect, WOB and RR improved. Second unit of blood transfused without issue. Patient reported I was finally able to get some sleep after these interventions. Pt resting in bed appearing comfortable at this time.
[2023-08-03 08:15] LABS: Basophils Percent Auto 0.1 % (0-2); Eosinophils Percent Auto 0.1 % (0-4); Hematocrit 26.7 % (42.0-52.0); Hemoglobin 8.1 g/dl (14.0-18.0); Imm Gran Abs Auto 0.28 X10*3/uL (0.00-0.03); Imm Gran Pct Auto 1.6 % (0.0-0.4); Lymphocytes Absolute Auto 0.4 X10*3/uL (1.2-4.9); Lymphocytes Percent Auto 2.2 % (20-40); MANUAL DIFF FLAG SCAN; Mean Corpuscular HGB Conc 30.3 g/dl (31.0-36.0); Mean Corpuscular Hemoglobin 22.4 pg (27.0-33.0); Mean Platelet Volume 10.7 fL (9.4-12.4); Monocytes Absolute Auto 0.5 X10*3/uL (0.1-1.2); Monocytes Percent Auto 2.9 % (2-11); NRBC Pct Auto 0.2 /100WBC (0.0-0.2); Neutrophils Absolute Auto 16.6 x10*3/uL (2.0-8.3); Neutrophils Percent Auto 93.1 % (45-73); Platelet Count 246 X10*3/uL (160-400); Red Blood Count 3.61 X10*6/uL (4.60-5.80); Red Cell Distribution Width 22.1 % (11.0-16.0); SCAN SMEAR FLAG 1; White Blood Count 17.8 X10*3/uL (4.8-10.8)
[2023-08-03 08:39] LABS: Troponin-I High Sensitivity 57.6 ng/L (<3.5-35.0)
[2023-08-03 08:42] LABS: SLIDE REVIEW VERIFIED
[2023-08-03 08:44] LABS: Anion Gap 15 (12-20); Blood Urea Nitrogen 24 mg/dL (9-16); Carbon Dioxide 21 mmol/L (22-29); Chloride 110 mmol/L (96-108); Creatinine Clr Calc Pharmacy 39.9; Estimated Glomerular Filt Rate 54; Glucose Random 141 mg/dL (60-115); Potassium 4.4 mmol/L (3.3-5.1); Sodium 142 mmol/L (135-145)
[2023-08-03 08:46] LABS: Lactic Acid 2.4 mmol/L (0.5-2.0)
[2023-08-03 08:53] LABS: Procalcitonin 0.11 ng/mL
[2023-08-03] MEDS: Fluticasone/Umeclidinium/Vilanterol 200/62.5/25 BLST.W.DEV 1 PUFF INHALE (09:00)
[2023-08-03] MEDS: 0.9 % Sodium Chloride Flush 3 ML SYRINGE IVFLUSH ×2 (09:05→16:07)
[2023-08-03] MEDS: methylPREDNISolone Sod Succ 40 MG/ML VIAL IVPUSH (09:05)
[2023-08-03] MEDS: Doxycycline Hyclate 100 MG in 0.9 % Sodium Chloride 250 ML 166.67 MG IV ×2 (09:05→21:17)
[2023-08-03] MEDS: Atorvastatin Calcium 10 MG TABLET PO (09:06)
[2023-08-03] MEDS: Escitalopram Oxalate 10 MG TABLET PO (09:06)
[2023-08-03 09:26] LABS: B Type Natriuretic Peptide 393 pg/mL (<100)
--- NOTE | 2023-08-03 09:42 | PM.GICN ---
History of Present Illness Data of Consult Service Date: 08/03/23 Requesting physician: Ricardo Armstrong Primary Care Provider: Chico Bojorquez MD [facility] Reason for consult: GI Bleeding 88 YM with COPD, chronic hypoxia (on 2L home O2), HTN, PAD on Xarelto and aspirin, GERD and restless legs syndrome seen at [facility] ED On 08/02/23 for shortness of breath and increased hypoxia. Patient reported increasing SOB for the past few days. 08/02 pt was seen at the [facility] walk-in clinic and noted to have 02 saturation of low 80s and sent to the ER. Labs in the ED showed H&H of 6.4/22.3 (decreased from 11.1 & 37 in December,). Patient notes during the past week he had a BM which was dark red in color. The following day his BM was slightly dark in color and then became brown the next day. Since then, pt reports increased fatigue and SOB. He has been spitting up greenish phlegm. PT denies heartburn, dysphagia, constipation or diarrhea - has a BM daily. He denies recent change in his appetite or weight. Pt admits to smoking 2 PPD in the past and quitted 30 yrs ago. He has a history of alcohol abuse and quit did 44 years ago. Pt denies a hx of snoooring or sleep apnea. He who works for the [employer] in [employer]. Patient is and lives by himself, he has 3 children. His daughter is a nurse and works in [place]. Patient is on both Xarelto and aspirin PAD. Denies any other recent or chronic NSAID use. In the ED patient was afebrile but tachypneic up 24, slightly hypertensive to 140/60, 02 sat of 89% on 2 L NC. Labs were significant for H&H of 6.4/22.3, lactic acid 2.7, BNP 237. Stool positive for occult blood. CXR showed mild diffuse increased interstitial markings possibly chronic, or related to bronchitis with edema less likely. EKG demonstrated mild ST depressions in V4 and V5. Pt was treated with DuoNebs, Solu-Medrol, ceftriaxone and admitted for evaluation of acute on chronic anemia. Patient was transfused 2 units of packed RBC overnight and follow-up H&H is 8.1 and 26.7 PAST GI HISTORY BY REVIEW OF MEDICAL RECORDS: Last colonoscopy was performed in 09/[address] Richards: 1. A 3 mm adenomatous polyp was removed from the cecum 2. A 4 mm flat adenomatous polyp was removed from the transverse colon 3. A 2 mm adenomatous polyp was removed at 40 cms Patient was advised to discontinue colorectal cancer screening given advanced age and comorbidities Review of Systems Review of Systems: Increased SOB Fatigue Hematochezia, melena Chronic cough Hypoxia Denies fever, chills, nausea, vomiting, abdominal pain No chest pain/pressure, palpitations PMFSH Past Medical History Medical History (Updated 01/30/24 @ 09:39 by Aaliyah Shaffer NP) COPD (chronic obstructive pulmonary disease) PAD (peripheral artery disease) CHF (congestive heart failure) HTN (hypertension) Bilateral carotid artery disease Family History Family History Father CVD (cardiovascular disease) Mother No problems noted. Surgical History Surgical History Hx of prostatectomy Hx of hernia repair Hx of rotator cuff surgery Social History Social History Household Members: None Housing: House Do you presently have visiting nurse or other home services: Yes Alcohol intake: former Patient Tobacco Use Status: Former Tobacco user Cigarette Packs Per Day: 2 Cigarettes Per Day: 40.0 service: No Meds Allergies Allergy/AdvReac Type Severity Reaction Status Date / Time No Known Allergies Allergy Unknown NOT Verified 01/16/24 11:45 APPLICABLE Active Medications: Current Medications Acetaminophen (Acetaminophen 325 Mg Tablet) 650 mg PO Q6H PRN PRN Reason: Pain, Mild (Pain Scale 1-3) Acetaminophen (Acetaminophen Supp 650 Mg Supp.Rect) 650 mg MO Q6H PRN PRN Reason: Pain, Mild (Pain Scale 1-3) Albuterol/Ipratropium (Albuterol/Iprat 2.5/0.5mg 3 Ml Ampul.Neb) 3 ml INHALE RQ4H WHILE AWAKE [facility] Last Admin: 08/03/23 09:00 Dose: 3 ml Albuterol/Ipratropium (Albuterol/Iprat 2.5/0.5mg 3 Ml Ampul.Neb) 3 ml INHALE Q4H PRN PRN Reason: Wheezing Last Admin: 08/03/23 00:23 Dose: 3 ml Atorvastatin Calcium (Atorvastatin Calcium 10 Mg Tablet) 10 mg PO DAILY [facility] Last Admin: 08/03/23 09:06 Dose: 10 mg Escitalopram Oxalate (Escitalopram Oxalate 10 Mg Tablet) 10 mg PO DAILY [facility] Last Admin: 08/03/23 09:06 Dose: 10 mg Fluticasone/Umeclidinium/Vilanterol (Fluticasone/Umeclidinium/Vilanterol 200/62.5/25 Blst.W.Dev) 1 puff INHALE RDAILY [facility] Last Admin: 08/03/23 09:00 Dose: 1 puff Doxycycline Hyclate 100 mg/ (Sodium Chloride) 250 mls @ 166.67 mls/hr IV Q12H [facility] Last Admin: 08/03/23 09:05 Dose: 166.67 mls/hr Ipratropium [place] (Ipratropium [place] Adonis 0.06 % 15 Ml [place]) 2 spray NOSTRIL-B TID [facility] Last Admin: 08/03/23 00:43 Dose: Not Given Melatonin (Melatonin 3 Mg Tablet) 6 mg PO BEDTIME PRN PRN Reason: Insomnia Last Admin: 08/02/23 22:02 Dose: 6 mg Methylprednisolone Sodium Succinate (Methylprednisolone Sod Succ 40 Mg/Ml Vial) 40 mg IVPUSH Q24H [facility] Last Admin: 08/03/23 09:05 Dose: 40 mg Ondansetron HCl (Ondansetron Hcl 4 Mg/2 Ml Vial) 4 mg IVPUSH Q8H PRN PRN Reason: Nausea and Vomiting Ropinirole HCl (Ropinirole Hcl 2 Mg Tablet) 2 mg PO BEDTIME [facility] Last Admin: 08/03/23 00:04 Dose: 2 mg Sodium Chloride (0.9 % Sodium Chloride Flush 3 Ml Syringe) 3 ml IVFLUSH QSHIFT [facility] Last Admin: 08/03/23 09:05 Dose: 3 ml Home Medications ?Medication ?Instructions ?Recorded ?Confirmed ?Last Taken ?Type aspirin 81 mg tablet,delayed 81 mg PO DAILY 02/22/21 01/16/24 08/02/23 History release (Adult Low Dose Aspirin) atorvastatin 10 mg tablet 10 mg PO DAILY 02/22/21 01/16/24 08/02/23 History citalopram 20 mg tablet 20 mg PO DAILY 02/22/21 01/16/2408/02/23 History omeprazole 20 mg capsule,delayed 20 mg PO DAILY 02/22/21 01/16/24 08/02/23 History release ipratropium bromide 42 mcg (0.06 2 spray intranasal TID 08/02/23 01/16/24 08/02/23 History %) nasal spray rivaroxaban 2.5 mg tablet (Xarelto) 2.5 mg PO BID 08/02/23 01/16/24 08/02/23 History ropinirole 2 mg tablet 2 mg PO BEDTIME 08/02/23 01/16/24 08/02/23 History triamcinolone acetonide 0.5 % appl topical 01/09/24 01/16/24 Unknown History topical cream Physical Exam Vital Signs: Vital Signs: Last Vital Signs Temp 98.9 F 08/03/23 07:12 Pulse 87 08/03/23 09:01 Resp 18 08/03/23 09:01 BP 149/65 H 08/03/23 07:12 Pulse Ox 92 08/03/23 07:12 O2 Del Method Nasal Cannula 08/03/23 07:12 O2 Flow Rate 4 08/03/23 07:12 Oxygen Flow Rate 3 08/02/23 16:57 BMI result Body Mass Index 24.9 Const: General: no acute distress and ill appearing chronically Nutritional Appearance: average body habitus Orientation/consciousness: patient oriented x3 HEENT: Head: Yes normal to inspection Ears: hearing grossly normal bilaterally Eyes: Sclerae: sclerae normal Pupils: Equal, round and reactive pupils present Neck: Neck: Yes normal visual inspection Chest: Chest palpation & inspection: normal inspection of the chest Resp: Auscultation: clear to auscultation bilaterally and diminished lung sounds Cardio: Palpation: normal PMI Rate: regular rate Rhythm: regular rhythm Heart sounds: S1 normal heart sound present, S2 normal heart sound present and no murmurs GI: Palpation (GI): Soft to palpation, nontender and No hepatosplenomegaly present Auscultation: normal bowel sounds Rectal Exam - Male: Yes deferred : General: Yes other (cornejo's catheter in place) Skin: General skin exam: no rashes or lesions noted Neuro: General: patient oriented x3, gait normal and moves all extremities Cranial nerves: Yes Equal, round and reactive pupils present Psych: Appearance: grossly normal Mental Status: mental status grossly normal Results Labs 08/07/23 17:19 08/06/23 07:14 Labs: Short CBC 08/02/23 08/03/23 Range/Units 17:11 08:02 WBC 10.2 17.8 H (4.8-10.8) X10*3/uL Hgb 6.4 L* D 8.1 L D (14.0-18.0) g/dl Hct 22.3 L D 26.7 L (42.0-52.0) % Plt Count 283 246 (160-400) X10*3/uL BMP 08/02/23 08/03/23 17:14 08:02 Sodium 141 142 Potassium 3.5 4.4 D Chloride 115 H 110 H Carbon Dioxide 18 L 21 L BUN 19 H 24 H Creatinine 1.00 1.26 Calcium 8.0 L D 9.0 D Liver Function 08/02/23 Range/Units 17:14 Total Bilirubin 0.4 (0.0-1.0) mg/dL AST 24 (5-37) U/L ALT 11 (0-40) U/L Alkaline Phosphatase 67 (39-117) U/L Albumin 3.4 L (3.5-5.0) g/dL Assessment and Plan (1) GI (gastrointestinal bleed): Status: Acute (2) Anemia: Status: Acute Plan 88 YM with COPD, chronic hypoxia (on 2L home O2), HTN, PAD on Xarelto and aspirin, GERD and restless legs syndrome seen at [facility] ED On 08/02/23 for shortness of breath and increased hypoxia. Labs in the ED showed H&H of 6.4/22.3 (decreased from 11.1 & 37 in December,). Patient notes during the past week he had a BM which was dark red in color. The following day his BM was slightly dark in color and then became brown the next day. Since then, pt reports increased fatigue and SOB. Pt was treated with DuoNebs, Solu-Medrol, ceftriaxone and admitted for evaluation of acute on chronic anemia. Patient was transfused 2 units of packed RBC overnight and follow-up H&H is 8.1 and 26.7 Pt has a hx of small adenomatous colon polyps on past colonoscopy in 2012. Recent episode of lower GI bleeding and anemia is likely from lower GI source (large polyp or mass, or AVM) Upper GI source (PUD, AVMs, or mass) is also possible RECOMMENDATIONS: 1. Monitor H & H daily and transfuse prn. 2. Pt needs further evaluation with an EGD and Colonoscopy. He is at high risk for anesthesia due to CHF, COPD with oxygen dependence and needs clearance from is architect and respooler. Patient can be scheduled for endoscopy procedures on 08/05/2023 if cardiac and respiratory status can be optimized. Hospital course: 88-year-old male admitted to the hospital for COVID-19 with acute on chronic hypoxemic respiratory failure treated with IV remdesivir, IV dexamethasone. Patient was weaned to baseline 2 L supplemental O2. H/H was noted to decrease during admission with hemoglobin 6.9. The patient was transfused with 1 unit packed red blood cells. Stool occult blood was noted to be positive. Patient seen by Gastroenterology recommending endoscopy once COVID-19 cleared. He was also noted to have gross hematuria without clots. Did not require CBI but was seen by Urology. Urine culture was negative for bacterial infection but did show some yeast. Hematuria did resolve. Urology recommended outpatient follow-up for cystoscopy. H/H continue to improve with hemoglobin on day of discharge 9.1. He should follow up outpatient with Dr. Keys in Gastroenterology for possible endoscopy. Following blood transfusion, was noted to be slightly fluid overloaded and was treated with IV Lasix, transition to oral Lasix. Euvolemic on day of discharge. He was evaluated by Physical therapy who recommended short-term rehab but patient refused this. He will go home with VNA services. Advised to follow up with PCP in 1 week. Continue PO dexamethasone 6mg daily x 6 days. Continue holding xarelto until further evaluated by gastroenterology and urology. Resume aspirin. Repeat CBC and BMP in 1 week with VNA Time Spent With Patient Time: Total time managing care of this patient today ____ minutes. Procedures Date of Service Date of Service: 04/25/24
[2023-08-03 10:11] LABS: Reflex Lactate? Lactic Acid Added
--- NOTE | 2023-08-03 10:14 | MHC.CM.PN ---
IMM 08/03. Pt from home self-care, and would like to D/C back home [place]. Pts states his daughter helps him out. Pt will need assistance with transportation upon discharge if his daughter is unable due to work. Offered assistance to make HCP, pt to talk with his daughter. PCP: Dr. Chico Bojorquez
[2023-08-03 11:21] LABS: ~Lactic Acid-LAB USE ONLY 2.3 mmol/L (0.5-2.0)
[2023-08-03 12:51] LABS: Reflex Lactate? 2 Y
[2023-08-03 14:11] LABS: ~Lactic Acid-LAB USE ONLY 2.5 mmol/L (0.5-2.0)
--- NOTE | 2023-08-03 14:40 | HO.PM.IMPN ---
Subjective Subjective Date of Service: 08/03/23 Interval History: hungry, wants to eat no abd pain dyspnea improved; overnight got a dose of furosemide for suspected volume overload Review of Systems Review of Systems: Yes all other systems are reviewed and are negative Physical Exam Vital Signs: Vital Signs: Last Vital Signs Temp 99.4 F 08/03/23 11:17 Pulse 101 H 08/03/23 11:41 Resp 18 08/03/23 11:41 BP 154/65 H 08/03/23 11:17 Pulse Ox 92 08/03/23 11:17 O2 Del Method Nasal Cannula 08/03/23 11:17 O2 Flow Rate 3 08/03/23 11:17 Oxygen Flow Rate 3 08/02/23 16:57 BMI result Body Mass Index 24.9 Gen: in no acute distress HEENT: sclera anicteric, moist but pale mucus membranes Neck: supple Lungs: bibasilar inspiratory crackles, scattered exp wheezing Heart: regular rate and rhythm, no murmurs Abd: soft, non-tender, non-distended Ext: no edema Skin: warm/well-perfused Neuro: alert and oriented x3, no focal findings Psych: appropriate affect Objective Data Active Medications Acetaminophen (Acetaminophen 325 Mg Tablet) 650 mg PO Q6H PRN PRN Reason: Pain, Mild (Pain Scale 1-3) Acetaminophen (Acetaminophen Supp 650 Mg Supp.Rect) 650 mg ID Q6H PRN PRN Reason: Pain, Mild (Pain Scale 1-3) Albuterol/Ipratropium (Albuterol/Iprat 2.5/0.5mg 3 Ml Ampul.Neb) 3 ml INHALE RQ4H WHILE AWAKE [facility] Last Admin: 08/03/23 11:37 Dose: 3 ml Documented By: AN Albuterol/Ipratropium (Albuterol/Iprat 2.5/0.5mg 3 Ml Ampul.Neb) 3 ml INHALE Q4H PRN PRN Reason: Wheezing Last Admin: 08/03/23 00:23 Dose: 3 ml Documented By: RAVEN Atorvastatin Calcium (Atorvastatin Calcium 10 Mg Tablet) 10 mg PO DAILY [facility] Last Admin: 08/03/23 09:06 Dose: 10 mg Documented By: EYAL Escitalopram Oxalate (Escitalopram Oxalate 10 Mg Tablet) 10 mg PO DAILY [facility] Last Admin: 08/03/23 09:06 Dose: 10 mg Documented By: EYAL Fluticasone/Umeclidinium/Vilanterol (Fluticasone/Umeclidinium/Vilanterol 200/62.5/25 Blst.W.Dev) 1 puff INHALE RDAILY [facility] Last Admin: 08/03/23 09:00 Dose: 1 puff Documented By: ADRIAN Doxycycline Hyclate 100 mg/ (Sodium Chloride) 250 mls @ 166.67 mls/hr IV Q12H [facility] Last Infusion: 08/03/23 10:43 Dose: Infused Documented By: EYAL Ipratropium [place] (Ipratropium [place] Adonis 0.06 % 15 Ml [place]) 2 spray NOSTRIL-B TID [facility] Last Admin: 08/03/23 10:43 Dose: Not Given Documented By: EYAL Non-Admin Reason: Med Not Available Comments: spoke with pharmacy about medication and sending up. Melatonin (Melatonin 3 Mg Tablet) 6 mg PO BEDTIME PRN PRN Reason: Insomnia Last Admin: 08/02/23 22:02 Dose: 6 mg Documented By: GUZMAN Methylprednisolone Sodium Succinate (Methylprednisolone Sod Succ 40 Mg/Ml Vial) 40 mg IVPUSH Q24H [facility] Last Admin: 08/03/23 09:05 Dose: 40 mg Documented By: EYAL Ondansetron HCl (Ondansetron Hcl 4 Mg/2 Ml Vial) 4 mg IVPUSH Q8H PRN PRN Reason: Nausea and Vomiting Ropinirole HCl (Ropinirole Hcl 2 Mg Tablet) 2 mg PO BEDTIME [facility] Last Admin: 08/03/23 00:04 Dose: 2 mg Documented By: KADY Sodium Chloride (0.9 % Sodium Chloride Flush 3 Ml Syringe) 3 ml IVFLUSH QSHIFT [facility] Last Admin: 08/03/23 09:05 Dose: 3 ml Documented By: EYAL Labs 08/03/23 08:02 08/03/23 08:02 Labs: Laboratory Results - last 24 hr 08/02/23 08/02/23 08/02/23 17:10 17:11 17:14 MCV 71.7 L MCH 20.6 L MCHC 28.7 L RDW 19.3 H Plt Count 283 MPV 11.3 Immature Gran % (Auto) 0.3 Neut % (Auto) 72.6 Lymph % (Auto) 14.3 L [place] % (Auto) 7.4 Eos % (Auto) 4.7 H Baso % (Auto) 0.7 Lymph # (Auto) 1.5 [place] # (Auto) 0.8 Eos # (Auto) 0.5 H Baso # (Auto) 0.1 Abs Immat Gran (auto) 0.03 Absolute Neuts (auto) 7.4 Absolute Nucleated RBC 0.000 Nucleated RBC % (auto) 0.0 Smear Tech's Comments PT 16.8 H INR 1.4 H APTT 32.2 O2 Saturation ABG pH at Pt Temp ABG pCO2 at Pt Temp ABG pO2 at Pt Temp ABG HCO3 ABG Base Excess (Actual) VBG pH VBG pCO2 VBG pO2 VBG HCO3 VBG O2 Saturation VBG Base Excess Anion Gap 12 Estim Creat Clear Calc 50.3 Estimated GFR > 60 Random Glucose 119 H Lactic Acid 2.7 H* Lactic Acid F/U @ 2Hr Lactic Acid F/U @ 4Hr Calcium 8.0 L D Magnesium 2.1 Total Bilirubin 0.4 AST 24 ALT 11 Alkaline Phosphatase 67 B-Natriuretic Peptide 237 H Total Protein 5.8 L Albumin 3.4 L Procalcitonin Stool Occult Blood Blood Type Antibody Screen Crossmatch 08/02/23 08/02/23 08/02/23 17:19 18:04 20:00 MCV MCH MCHC RDW Plt Count MPV Immature Gran % (Auto) Neut % (Auto) Lymph % (Auto) [place] % (Auto) Eos % (Auto) Baso % (Auto) Lymph # (Auto) [place] # (Auto) Eos # (Auto) Baso # (Auto) Abs Immat Gran (auto) Absolute Neuts (auto) Absolute Nucleated RBC Nucleated RBC % (auto) Smear Tech's Comments PT INR APTT O2 Saturation ABG pH at Pt Temp ABG pCO2 at Pt Temp ABG pO2 at Pt Temp ABG HCO3 ABG Base Excess (Actual) VBG pH 7.33 VBG pCO2 46 VBG pO2 45 VBG HCO3 24 VBG O2 Saturation 60.0 VBG Base Excess -1.0 Anion Gap Estim Creat Clear Calc Estimated GFR Random Glucose Lactic Acid Lactic Acid F/U @ 2Hr 4.4 H* Lactic Acid F/U @ 4Hr Calcium Magnesium Total Bilirubin AST ALT Alkaline Phosphatase B-Natriuretic Peptide Total Protein Albumin Procalcitonin Stool Occult Blood POSITIVE Blood Type O Positive Antibody Screen NEGATIVE Crossmatch See Detail 08/02/23 08/03/23 08/03/23 22:32 01:04 08:02 MCV 74.0 L MCH 22.4 L MCHC 30.3 L RDW 22.1 H Plt Count 246 MPV 10.7 Immature Gran % (Auto) 1.6 H Neut % (Auto) 93.1 H Lymph % (Auto) 2.2 L [place] % (Auto) 2.9 Eos % (Auto) 0.1 Baso % (Auto) 0.1 Lymph # (Auto) 0.4 L [place] # (Auto) 0.5 Eos # (Auto) 0.0 Baso # (Auto) 0.0 Abs Immat Gran (auto) 0.28 H Absolute Neuts (auto) 16.6 H Absolute Nucleated RBC 0.030 H Nucleated RBC % (auto) 0.2 Smear Tech's Comments VERIFIED PT INR APTT O2 Saturation 94.0 ABG pH at Pt Temp 7.43 ABG pCO2 at Pt Temp 25 L ABG pO2 at Pt Temp 68 L ABG HCO3 16 L ABG Base Excess (Actual) -6.1 VBG pH VBG pCO2 VBG pO2 VBG HCO3 VBG O2 Saturation VBG Base Excess Anion Gap 15 Estim Creat Clear Calc 39.9 Estimated GFR 54 Random Glucose 141 H Lactic Acid 2.4 H* Lactic Acid F/U @ 2Hr Lactic Acid F/U @ 4Hr 5.5 H* Calcium 9.0 D Magnesium Total Bilirubin AST ALT Alkaline Phosphatase B-Natriuretic Peptide 393 H Total Protein Albumin Procalcitonin 0.11 Stool Occult Blood Blood Type Antibody Screen Crossmatch 08/03/23 08/03/23 10:41 13:32 MCV MCH MCHC RDW Plt Count MPV Immature Gran % (Auto) Neut % (Auto) Lymph % (Auto) [place] % (Auto) Eos % (Auto) Baso % (Auto) Lymph # (Auto) [place] # (Auto) Eos # (Auto) Baso # (Auto) Abs Immat Gran (auto) Absolute Neuts (auto) Absolute Nucleated RBC Nucleated RBC % (auto) Smear Tech's Comments PT INR APTT O2 Saturation ABG pH at Pt Temp ABG pCO2 at Pt Temp ABG pO2 at Pt Temp ABG HCO3 ABG Base Excess (Actual) VBG pH VBG pCO2 VBG pO2 VBG HCO3 VBG O2 Saturation VBG Base Excess Anion Gap Estim Creat Clear Calc Estimated GFR Random Glucose Lactic Acid Lactic Acid F/U @ 2Hr 2.3 H* Lactic Acid F/U @ 4Hr 2.5 H* Calcium Magnesium Total Bilirubin AST ALT Alkaline Phosphatase B-Natriuretic Peptide Total Protein Albumin Procalcitonin Stool Occult Blood Blood Type Antibody Screen Crossmatch Impressions Chest X-Ray 08/02/23 16:55 IMPRESSION: Mild diffuse increased interstitial markings possibly chronic. Change related to bronchitis could have this appearance. Edema considered less likely. There is no focal lung consolidation or pleural effusion. Chest X-Ray 08/03/23 01:10 IMPRESSION: * Bronchial wall thickening redemonstrated with worsening peribronchial airspace component in the right lung possibly representing developing atypical pneumonitis. Assessment and Plan (1) GI (gastrointestinal bleed): Status: Acute Plan d2 88yo M with COPD, chronic hypoxic resp failure on 2L home O2, HTN, PAD on ASA + rivaroxaban sent to ED from due to hypoxia and dyspnea found to be anemic with Hb 6.4, also worsening hypoxia COPD/CHF exacerbations acute blood loss anemia due to GI bleed - plan EGD/C-scope 08/05/23 per GI but need Cardiology + Pulmonary evaluation prior- ordered - hold ASA + rivaroxaban - IV PPI - monitor H+H; transfused 2u pRBCs 08/02/23 COPD exacerbation - continue IV methylprednisolone, standing/prn ipratropium/albuterol, doxycycline d1, Trelegy CHF exacerbation unknown EF - TTE, furosemide diuresis, monitor BNP/I+O/BMP HLD - statin GERD - PPI PAD - statin; hold ASA + rivaroxaban RLS - ropinirole mood disorder - escitalopram VTE ppx - SCDs dispo - TBD In my clinical judgment, the patient requires continued inpatient hospitalization for the following reasons: endoscopic evaluation of GI bleed, IV diuresis Time Spent With Patient Time: Total time managing care of this patient today45 ____ minutes. Quality Stroke Does the patient have a stroke diagnosis?: No VTE Prior VTE?: No VTE Risk Level:: Medical - moderate - high VTE Device Contraindication: N/A - Device Ordered VTE Drug Contraindication: Treatment Not Indicated
--- NOTE | 2023-08-03 14:56 | PC.NURSE ---
Addendum entered by Emily José RN 08/03/23 15:21: Patient needs constant redirection on staying in bed and leaving Mcgarry catheter in place. Dr. Dexter notified of behavior, requested sitter order and notified Solution Sales Senior Executive [employer] and [employer] Project Manager nurse Cassy @15:03 via tigertext. Solution Sales Senior Executive reported at 15:03 unable to fill order. Only one sitter on the floor assignment. Reported information to Dr. Dexter. @ [phone]. Asked Dr Dexter for medication to decrease agitation@15:[address] Dexter reported patient not fit for alternative medication do to cardiac and pulmonary history. Patient currently has camera in place and Bed alarm in on. Original Note: Patient is alert and oriented times self, time, and place. Patient is forgetful and constantly needs redirection. Patient is agitated and stating he wants to go home. Reached out to to Dr. Dexter at asking 14:50 for and sitter order to prevent the patient from falling, taking off his nasal cannula and removing
[2023-08-03] MEDS: QUEtiapine Fumarate 25 MG TABLET PO (16:06)
[2023-08-03] MEDS: Acetaminophen 325 MG TABLET 650 MG PO (18:26)
[2023-08-03 19:59] LABS: Cancel Lactic Acid Canceled
[2023-08-03] MEDS: OLANZapine 10 MG VIAL 5 MG IM (20:18)
--- NOTE | 2023-08-03 22:42 | PC.NURSE ---
Patient @19:55 confused with increased agitation. frequent re-direction from staff. Pulled out [facility]garry Cath, notified states to leave out and to Bladder scan in a few hours, ordered 5mg Zyprexa IM Stat with good effect, patient sleeping comfortably. Will continue to monitor behavior and report changes to MD.
[2023-08-04] MEDS: OLANZapine 10 MG VIAL IM (02:33)
[2023-08-04] MEDS: 0.9 % Sodium Chloride Flush 3 ML SYRINGE IVFLUSH ×3 (02:33→17:00)
[2023-08-04 02:43] VITALS: BP 139/69; PULSE 88; RESP 22; TEMP 36.6; O2SAT 92
[2023-08-04 07:11] VITALS: BP 104/60; PULSE 78; RESP 18; TEMP 36.2; O2SAT 92
[2023-08-04 07:33] LABS: Hematocrit 27.4 % (42.0-52.0); Hemoglobin 8.3 g/dl (14.0-18.0); Mean Corpuscular HGB Conc 30.3 g/dl (31.0-36.0); Mean Corpuscular Hemoglobin 22.9 pg (27.0-33.0); Mean Corpuscular Volume 75.5 fL (80.0-98.0); Mean Platelet Volume 11.3 fL (9.4-12.4); NRBC Pct Auto 0.1 /100WBC (0.0-0.2); Platelet Count 254 X10*3/uL (160-400); Red Blood Count 3.63 X10*6/uL (4.60-5.80); Red Cell Distribution Width 22.2 % (11.0-16.0); White Blood Count 22.8 X10*3/uL (4.8-10.8)
[2023-08-04 08:05] LABS: Anion Gap 13 (12-20); Blood Urea Nitrogen 32 mg/dL (9-16); Carbon Dioxide 19 mmol/L (22-29); Chloride 114 mmol/L (96-108); Creatinine Clr Calc Pharmacy 37.2; Estimated Glomerular Filt Rate 50; Glucose Random 118 mg/dL (60-115); Potassium 4.3 mmol/L (3.3-5.1); Sodium 142 mmol/L (135-145)
[2023-08-04 08:09] LABS: B Type Natriuretic Peptide 378 pg/mL (<100)
--- NOTE | 2023-08-04 09:40 | PM.CNPUL ---
History of Present Illness History of Present Illness Consult date: 08/04/23 Chief complaint: Pulmonary preoperative risk assessment Narrative: 88-year-old gentleman with underlying supplemental oxygen dependent COPD on 2 L, hypertension, CAD equivalent on Xarelto and aspirin admitted on 08/02/2023 with subacute anemia and dyspnea. Patient is planned for endoscopic evaluation and pulmonary preoperative risk assessment has been requested. Review of Systems Constitutional: Constitutional: Denies daytime sleepiness, Denies excessive sweating, Denies fatigue, Denies fever(s), Reports lethargy, Reports malaise, Denies night sweats, Denies snoring and Denies weight loss Eyes: Eyes: Denies blurry vision and Denies itchy eyes ENT: Denies nasal congestion, Denies post nasal drip, Denies sinus pain, Denies sinus pressure and Denies other ( Thrush) Cardiovascular: Cardiovascular: Denies chest pain, Reports pedal edema, Denies dyspnea, Reports dyspnea on exertion, Reports orthopnea and Denies paroxysmal nocturnal dyspnea Respiratory: Respiratory: Denies cough, Denies hemoptysis, Denies excessive phlegm production, Denies dyspnea, Reports dyspnea on exertion, Denies snoring and Denies wheezing Gastrointestinal: Gastrointestinal: Denies abdominal pain and Denies heartburn Musculoskeletal: Musculoskeletal: Denies myalgias, Denies arthralgias and Denies joint swelling Integumentary/Breasts: Skin/Breast: Denies rash Neurologic: Denies memory loss and Denies seizure-like activity Psychiatric: Psychiatric: Denies abnormal sleep pattern, Denies anxiety and Denies memory loss Endocrine: Endocrine: Denies excessive sweating, Denies fatigue and Denies heat intolerance Hematologic/Lymphatic: Hematologic/Lymphatic: Denies easy bruising Allergic/Immunologic: Allergic/Immunologic: Denies itchy eyes, Denies seasonal rhinorrhea and Denies wheezing PMFSH Past Medical History Medical History HTN (hypertension) Bilateral carotid artery disease Family History Family History Father CVD (cardiovascular disease) Mother No problems noted. Surgical History Surgical History Hx of prostatectomy Hx of hernia repair Hx of rotator cuff surgery Social History Social History Household Members: None Housing: House Do you presently have visiting nurse or other home services: Yes Alcohol intake: former Patient Tobacco Use Status: Former Tobacco user Cigarette Packs Per Day: 2 Cigarettes Per Day: 40.0 service: No Meds Allergies Allergy/AdvReac Type Severity Reaction Status Date / Time No Known Allergies Allergy Unknown NOT Verified 08/02/23 15:05 APPLICABLE Active Medications: Current Medications Acetaminophen (Acetaminophen 325 Mg Tablet) 650 mg PO Q6H PRN PRN Reason: Pain, Mild (Pain Scale 1-3) Last Admin: 08/03/23 18:26 Dose: 650 mg Acetaminophen (Acetaminophen Supp 650 Mg Supp.Rect) 650 mg [place] Q6H PRN PRN Reason: Pain, Mild (Pain Scale 1-3) Albuterol/Ipratropium (Albuterol/Iprat 2.5/0.5mg 3 Ml Ampul.Neb) 3 ml INHALE RQ4H WHILE AWAKE [facility] Last Admin: 08/03/23 18:53 Dose: 3 ml Albuterol/Ipratropium (Albuterol/Iprat 2.5/0.5mg 3 Ml Ampul.Neb) 3 ml INHALE Q4H PRN PRN Reason: Wheezing Last Admin: 08/03/23 00:23 Dose: 3 ml Atorvastatin Calcium (Atorvastatin Calcium 10 Mg Tablet) 10 mg PO DAILY [facility] Last Admin: 08/03/23 09:06 Dose: 10 mg Escitalopram Oxalate (Escitalopram Oxalate 10 Mg Tablet) 10 mg PO DAILY [facility] Last Admin: 08/03/23 09:06 Dose: 10 mg Fluticasone/Umeclidinium/Vilanterol (Fluticasone/Umeclidinium/Vilanterol 200/62.5/25 Blst.W.Dev) 1 puff INHALE RDAILY [facility] Last Admin: 08/03/23 09:00 Dose: 1 puff Furosemide (Furosemide 40 Mg/4 Ml Vial) 40 mg IVPUSH DAILY [facility]; Protocol Doxycycline Hyclate 100 mg/ (Sodium Chloride) 250 mls @ 166.67 mls/hr IV Q12H [facility] Last Infusion: 08/03/23 23:08 Dose: Infused Ipratropium [place] (Ipratropium [place] Adonis 0.06 % 15 Ml [place]) 2 spray NOSTRIL-B TID [facility] Last Admin: 08/03/23 21:13 Dose: Not Given Melatonin (Melatonin 3 Mg Tablet) 6 mg PO BEDTIME PRN PRN Reason: Insomnia Last Admin: 08/02/23 22:02 Dose: 6 mg Methylprednisolone Sodium Succinate (Methylprednisolone Sod Succ 40 Mg/Ml Vial) 40 mg IVPUSH Q24H [facility] Last Admin: 08/03/23 09:05 Dose: 40 mg Ondansetron HCl (Ondansetron Hcl 4 Mg/2 Ml Vial) 4 mg IVPUSH Q8H PRN PRN Reason: Nausea and Vomiting Ropinirole HCl (Ropinirole Hcl 2 Mg Tablet) 2 mg PO BEDTIME [facility] Last Admin: 08/03/23 21:13 Dose: 2 mg Sodium Chloride (0.9 % Sodium Chloride Flush 3 Ml Syringe) 3 ml IVFLUSH QSHIFT [facility] Last Admin: 08/04/23 02:33 Dose: 3 ml Home Medications Medication Instructions Recorded Confirmed Last Taken Type aspirin 81 mg tablet,delayed 81 mg PO DAILY 02/22/21 08/02/23 08/02/23 History release (Adult Low Dose Aspirin) atorvastatin 10 mg tablet 10 mg PO DAILY 02/22/21 08/02/23 08/02/23 History citalopram 20 mg tablet 20 mg PO DAILY 02/22/21 08/02/23 08/02/23 History omeprazole 20 mg capsule,delayed 20 mg PO DAILY 02/22/21 08/02/23 08/02/23 History release ipratropium bromide 42 mcg (0.06 2 spray intranasal TID 08/02/23 08/02/23 08/02/23 History %) nasal spray rivaroxaban 2.5 mg tablet (Xarelto) 2.5 mg PO BID 08/02/23 08/02/23 08/02/23 History ropinirole 2 mg tablet 2 mg PO BEDTIME 08/02/23 08/02/23 08/02/23 History Physical Exam Vital Signs: Vital Signs: Last Vital Signs Temp 97.1 F 08/04/23 07:11 Pulse 78 08/04/23 07:11 Resp 18 08/04/23 07:11 BP 104/60 08/04/23 07:11 Pulse Ox 92 08/04/23 07:11 O2 Del Method Nasal Cannula 08/04/23 07:11 O2 Flow Rate 4 08/04/23 07:11 Oxygen Flow Rate 3 08/02/23 16:57 BMI result Body Mass Index 24.9 Const: General: no acute distress and alert Nutritional Appearance: not obese Orientation/consciousness: Other orientation findings ( oriented) HEENT: Head: Yes atraumatic Eyes: General: appearance normal, both eyes and all related structures Sclerae: sclerae normal EOM: EOMs intact bilaterally Neck: Neck: Yes supple Lymphatic: no lymphadenopathy noted Resp: Effort & Inspection: normal respiratory effort and no use of accessory muscles Auscultation: clear to auscultation bilaterally Cardio: Rate: regular rate Rhythm: regular rhythm Heart sounds: no gallops, no murmurs and no rubs Skin: General skin exam: other ( warm) Extrem: General: No clubbing, No cyanosis and Yes edema ( 1+ bilateral) Results Laboratory Findings 08/04/23 07:23 08/04/23 07:22 ABG, PT/INR, D-dimer: PT/INR, D-dimer PT 16.8 SEC (11.1-13.3) H 08/02/23 17:10 INR 1.4 (0.9-1.1) H 08/02/23 17:10 Abnormal lab findings: Abnormal Labs 08/02/23 08/02/23 08/02/23 17:10 17:11 17:14 WBC RBC 3.11 L D Hgb 6.4 L* D Hct 22.3 L D MCV 71.7 L MCH 20.6 L MCHC 28.7 L RDW 19.3 H Immature Gran % (Auto) Neut % (Auto) Lymph % (Auto) 14.3 L Eos % (Auto) 4.7 H Lymph # (Auto) Eos # (Auto) 0.5 H Abs Immat Gran (auto) Absolute Neuts (auto) Absolute Nucleated RBC PT 16.8 H INR 1.4 H ABG pCO2 at Pt Temp ABG pO2 at Pt Temp ABG HCO3 Chloride 115 H Carbon Dioxide 18 L BUN 19 H Random Glucose 119 H Lactic Acid 2.7 H* Lactic Acid F/U @ 2Hr Lactic Acid F/U @ 4Hr Calcium 8.0 L D Troponin I High Sens B-Natriuretic Peptide 237 H Total Protein 5.8 L Albumin 3.4 L Crossmatch 08/02/23 08/02/23 08/02/23 18:04 20:00 22:32 WBC RBC Hgb Hct MCV MCH MCHC RDW Immature Gran % (Auto) Neut % (Auto) Lymph % (Auto) Eos % (Auto) Lymph # (Auto) Eos # (Auto) Abs Immat Gran (auto) Absolute Neuts (auto) Absolute Nucleated RBC PT INR ABG pCO2 at Pt Temp ABG pO2 at Pt Temp ABG HCO3 Chloride Carbon Dioxide BUN Random Glucose Lactic Acid Lactic Acid F/U @ 2Hr 4.4 H* Lactic Acid F/U @ 4Hr 5.5 H* Calcium Troponin I High Sens B-Natriuretic Peptide Total Protein Albumin Crossmatch See Detail 08/03/23 08/03/23 08/03/23 01:04 08:02 10:41 WBC 17.8 H RBC 3.61 L Hgb 8.1 L D Hct 26.7 L MCV 74.0 L MCH 22.4 L MCHC 30.3 L RDW 22.1 H Immature Gran % (Auto) 1.6 H Neut % (Auto) 93.1 H Lymph % (Auto) 2.2 L Eos % (Auto) Lymph # (Auto) 0.4 L Eos # (Auto) Abs Immat Gran (auto) 0.28 H Absolute Neuts (auto) 16.6 H Absolute Nucleated RBC 0.030 H PT INR ABG pCO2 at Pt Temp 25 L ABG pO2 at Pt Temp 68 L ABG HCO3 16 L Chloride 110 H Carbon Dioxide 21 L BUN 24 H Random Glucose 141 H Lactic Acid 2.4 H* Lactic Acid F/U @ 2Hr 2.3 H* Lactic Acid F/U @ 4Hr Calcium Troponin I High Sens 57.6 H D B-Natriuretic Peptide 393 H Total Protein Albumin Crossmatch 08/03/23 08/04/23 08/04/23 13:32 07:22 07:23 WBC 22.8 H RBC 3.63 L Hgb 8.3 L Hct 27.4 L MCV 75.5 L MCH 22.9 L MCHC 30.3 L RDW 22.2 H Immature Gran % (Auto) Neut % (Auto) Lymph % (Auto) Eos % (Auto) Lymph # (Auto) Eos # (Auto) Abs Immat Gran (auto) Absolute Neuts (auto) Absolute Nucleated RBC 0.020 H PT INR ABG pCO2 at Pt Temp ABG pO2 at Pt Temp ABG HCO3 Chloride 114 H Carbon Dioxide 19 L BUN 32 H Random Glucose 118 H Lactic Acid Lactic Acid F/U @ 2Hr Lactic Acid F/U @ 4Hr 2.5 H* Calcium Troponin I High Sens B-Natriuretic Peptide 378 H Total Protein Albumin Crossmatch Microbiology: Microbiology 08/02/23 17:11 Blood - Arterial Blood Culture - Preliminary No growth after 24 hours. 08/02/23 17:11 Blood - Arterial Blood Culture - Preliminary No growth after 24 hours. Assessment and Plan (1) COPD (chronic obstructive pulmonary disease): Status: Acute (2) Supplemental oxygen dependent: Status: Acute (3) Encounter for preoperative pulmonary examination: Status: Acute Plan Impression/Recommendations: 88-year-old gentleman with underlying supplemental oxygen dependent COPD admitted with dyspnea secondary to subacute anemia with likely GI bleed and also exacerbation of underlying chronic diastolic dysfunction. At this time patient does not have exacerbation of his underlying COPD. He appears to be in some volume overload from exacerbation of diastolic congestive heart failure that is improving with diuresis. At this time patient is at moderate risk for pulmonary perioperative complications for the proposed endoscopic evaluation either under general anesthesia or monitored anesthesia care. Unfortunately, his pulmonary preoperative risk is not modifiable and is related to severity of underlying COPD. Time Spent With Patient Time: Total time managing care of this patient today ____ minutes. Procedures Date of Service Date of Service: 08/04/23
[2023-08-04] MEDS: Doxycycline Hyclate 100 MG in 0.9 % Sodium Chloride 250 ML 166.67 MG IV ×2 (10:10→20:46)
[2023-08-04] MEDS: methylPREDNISolone Sod Succ 40 MG/ML VIAL IVPUSH (10:11)
[2023-08-04] MEDS: Escitalopram Oxalate 10 MG TABLET PO (10:11)
[2023-08-04] MEDS: Atorvastatin Calcium 10 MG TABLET PO (10:11)
[2023-08-04] MEDS: Furosemide 40 MG/4 ML VIAL IVPUSH ×2 (10:11→17:00)
[2023-08-04] MEDS: Acetaminophen 325 MG TABLET 650 MG PO (10:23)
--- NOTE | 2023-08-04 10:53 | P.PNIM_ITS ---
Subjective Subjective Date of Service: 08/04/23 Interval History: agitated overnight, got olanzapine now calm; denies dyspnea or chest pain no sherrie GI bleeding no abd pain Review of Systems Review of Systems: Yes all other systems are reviewed and are negative Physical Exam 2 Vital Signs: Vital Signs: Last Vital Signs Temp 97.1 F 08/04/23 07:11 Pulse 78 08/04/23 07:11 Resp 18 08/04/23 07:11 BP 104/60 08/04/23 07:11 Pulse Ox 92 08/04/23 07:11 O2 Del Method Nasal Cannula 08/04/23 07:11 O2 Flow Rate 4 08/04/23 07:11 Oxygen Flow Rate 3 08/02/23 16:57 BMI result Body Mass Index 24.9 Gen: in no acute distress HEENT: sclera anicteric, moist but pale mucus membranes Neck: supple Lungs: diminished Heart: regular rate and rhythm, no murmurs Abd: soft, non-tender, non-distended Ext: no edema Skin: warm/well-perfused Neuro: alert and oriented x3, no focal findings Psych: appropriate affect Objective Data Active Medications Acetaminophen (Acetaminophen 325 Mg Tablet) 650 mg PO Q6H PRN PRN Reason: Pain, Mild (Pain Scale 1-3) Last Admin: 08/04/23 10:23 Dose: 650 mg Documented By: GLADYS Acetaminophen (Acetaminophen Supp 650 Mg Supp.Rect) [address] [place] Q6H PRN PRN Reason: Pain, Mild (Pain Scale 1-3) Albuterol/Ipratropium (Albuterol/Iprat 2.5/0.5mg 3 Ml Ampul.Neb) 3 ml INHALE RQ4H WHILE AWAKE [facility] Last Admin: 08/03/23 18:53 Dose: 3 ml Documented By: RAVEN Albuterol/Ipratropium (Albuterol/Iprat 2.5/0.5mg 3 Ml Ampul.Neb) 3 ml INHALE Q4H PRN PRN Reason: Wheezing Last Admin: 08/03/23 00:23 Dose: 3 ml Documented By: RAVEN Atorvastatin Calcium (Atorvastatin Calcium 10 Mg Tablet) 10 mg PO DAILY [facility] Last Admin: 08/04/23 10:11 Dose: 10 mg Documented By: GLADYS Escitalopram Oxalate (Escitalopram Oxalate 10 Mg Tablet) 10 mg PO DAILY [facility] [place] Last Admin: 08/04/23 10:11 Dose: 10 mg Documented By: GLADYS Fluticasone/Umeclidinium/Vilanterol (Fluticasone/Umeclidinium/Vilanterol 200/62.5/25 Blst.W.Dev) 1 puff INHALE RDAILY [facility] [place] Last Admin: 08/03/23 09:00 Dose: 1 puff Documented By: ADRIAN Furosemide (Furosemide 40 Mg/4 Ml Vial) 40 mg IVPUSH DAILY [facility]; Protocol Last Admin: 08/04/23 10:11 Dose: 40 mg Documented By: GLADYS Doxycycline Hyclate 100 mg/ (Sodium Chloride) 250 mls @ 166.67 mls/hr IV Q12H [facility] [place] Last Admin: 08/04/23 10:10 Dose: 166.67 mls/hr Documented By: GLADYS Ipratropium [place] (Ipratropium [place] Adonis 0.06 % 15 Ml [place]) 2 spray NOSTRIL-B TID [facility] Last Admin: 08/04/23 10:32 Dose: Not Given Documented By: GLADYS Non-Admin Reason: Med Not Available Melatonin (Melatonin 3 Mg Tablet) 6 mg PO BEDTIME PRN PRN Reason: Insomnia Last Admin: 08/02/23 22:02 Dose: 6 mg Documented By: GUZMAN Methylprednisolone Sodium Succinate (Methylprednisolone Sod Succ 40 Mg/Ml Vial) 40 mg IVPUSH Q24H [facility] Last Admin: 08/04/23 10:11 Dose: 40 mg Documented By: GLADYS Ondansetron HCl (Ondansetron Hcl 4 Mg/2 Ml Vial) 4 mg IVPUSH Q8H PRN PRN Reason: Nausea and Vomiting Ropinirole HCl (Ropinirole Hcl 2 Mg Tablet) 2 mg PO BEDTIME [facility] [place] Last Admin: 08/03/23 21:13 Dose: 2 mg Documented By: NAS Sodium Chloride (0.9 % Sodium Chloride Flush 3 Ml Syringe) 3 ml IVFLUSH QSHIFT [facility] Last Admin: 08/04/23 10:12 Dose: 3 ml Documented By: GLADYS Labs 08/04/23 07:23 08/04/23 07:22 Labs: Laboratory Results - last 24 hr 08/03/23 08/03/23 08/04/23 10:41 13:32 07:22 MCV MCH MCHC RDW Plt Count MPV Absolute Nucleated RBC Nucleated RBC % (auto) Anion Gap 13 Estim Creat Clear Calc 37.2 Estimated GFR 50 Random Glucose 118 H Lactic Acid F/U @ 2Hr 2.3 H* Lactic Acid F/U @ 4Hr 2.5 H* Calcium 9.0 B-Natriuretic Peptide 378 H Hold Yellow Top See Note 08/04/23 07:23 MCV 75.5 L MCH 22.9 L MCHC 30.3 L RDW 22.2 H Plt Count 254 MPV 11.3 Absolute Nucleated RBC 0.020 H Nucleated RBC % (auto) 0.1 Anion Gap Estim Creat Clear Calc Estimated GFR Random Glucose Lactic Acid F/U @ 2Hr Lactic Acid F/U @ 4Hr Calcium B-Natriuretic Peptide Hold Yellow Top Microbiology Microbiology Results: Microbiology 08/02/23 17:11 Blood Culture - Preliminary Blood - Arterial No growth after 24 hours. 08/02/23 17:11 Blood Culture - Preliminary Blood - Arterial No growth after 24 hours. Assessment and Plan (1) GI (gastrointestinal bleed): Status: Acute Plan d3 88yo M with COPD, chronic hypoxic resp failure on 2L home O2, HTN, PAD on ASA + rivaroxaban sent to ED from due to hypoxia and dyspnea found to be anemic with Hb 6.4, also worsening hypoxia COPD/CHF exacerbations acute blood loss anemia due to GI bleed - plan EGD/C-scope 08/05/23 per GI but need Cardiology + Pulmonary evaluation prior- ordered - hold ASA + rivaroxaban - IV PPI - monitor H+H; transfused 2u pRBCs 08/02/23 COPD exacerbation - continue IV methylprednisolone, standing/prn ipratropium/albuterol, doxycycline d2, Trelegy CHF exacerbation unknown EF - TTE, continue furosemide diuresis, monitor BNP/I+O/BMP, Cardiology consult as above HLD - statin GERD - PPI PAD - statin; hold ASA + rivaroxaban RLS - ropinirole mood disorder - escitalopram VTE ppx - SCDs dispo - TBD In my clinical judgment, the patient requires continued inpatient hospitalization for the following reasons: endoscopic evaluation of GI bleed, IV diuresis Time Spent With Patient Time: Total time managing care of this patient today ___40_ minutes. Quality Stroke Does the patient have a stroke diagnosis?: No VTE Prior VTE?: No VTE Risk Level:: Medical - moderate - high VTE Device Contraindication: N/A - Device Ordered VTE Drug Contraindication: Treatment Not Indicated
[2023-08-04 11:25] VITALS: BP 162/70; PULSE 75; RESP 18; TEMP 36.6; O2SAT 94
--- NOTE | 2023-08-04 12:42 | PM.CNCAR ---
History of Present Illness History of Present Illness Date of Service: 08/04/23 Requesting physician: Cecelia Dexter Chief complaint: CV risk assessment Narrative: [age] gentleman presenting with GI bleed who will need endoscopy and we have been asked to assess his perioperative risk. He has history of claudication and peripheral vascular disease. He is on aspirin and Xarelto. Presenting with anemia. He has background of COPD and is on home oxygen 2 liters/minute. His denying any shortness of breath currently but it appears he was in congestive heart failure on admission and received IV Lasix. Last echocardiogram was in 2020. He is denying any chest discomfort or any other complaints at this point. [facility] Past Medical History Medical History HTN (hypertension) Bilateral carotid artery disease Family History Family History Father CVD (cardiovascular disease) Mother No problems noted. Surgical History Surgical History Hx of prostatectomy Hx of hernia repair Hx of rotator cuff surgery Social History Social History Household Members: None Housing: House Do you presently have visiting nurse or other home services: Yes Alcohol intake: former Patient Tobacco Use Status: Former Tobacco user Cigarette Packs Per Day: 2 Cigarettes Per Day: 40.0 service: No Meds Allergies Allergy/AdvReac Type Severity Reaction Status Date / Time No Known Allergies Allergy Unknown NOT Verified 08/02/23 15:05 APPLICABLE Active Medications: Current Medications Acetaminophen (Acetaminophen 325 Mg Tablet) 650 mg PO Q6H PRN PRN Reason: Pain, Mild (Pain Scale 1-3) Last Admin: 08/04/23 10:23 Dose: 650 mg Acetaminophen (Acetaminophen Supp 650 Mg Supp.Rect) 650 mg [place] Q6H PRN PRN Reason: Pain, Mild (Pain Scale 1-3) Albuterol/Ipratropium (Albuterol/Iprat 2.5/0.5mg 3 Ml Ampul.Neb) 3 ml INHALE RQ4H WHILE AWAKE [facility] Last Admin: 08/04/23 11:54 Dose: Not Given Albuterol/Ipratropium (Albuterol/Iprat 2.5/0.5mg 3 Ml Ampul.Neb) 3 ml INHALE Q4H PRN PRN Reason: Wheezing Last Admin: 08/03/23 00:23 Dose: 3 ml Atorvastatin Calcium (Atorvastatin Calcium 10 Mg Tablet) 10 mg PO DAILY [facility] Last Admin: 08/04/23 10:11 Dose: 10 mg Escitalopram Oxalate (Escitalopram Oxalate 10 Mg Tablet) 10 mg PO DAILY [facility] Last Admin: 08/04/23 10:11 Dose: 10 mg Fluticasone/Umeclidinium/Vilanterol (Fluticasone/Umeclidinium/Vilanterol 200/62.5/25 Blst.W.Dev) 1 puff INHALE RDAILY [facility] Last Admin: 08/04/23 11:55 Dose: Not Given Furosemide (Furosemide 40 Mg/4 Ml Vial) 40 mg IVPUSH DAILY [facility]; Protocol Last Admin: 08/04/23 10:11 Dose: 40 mg Doxycycline Hyclate 100 mg/ (Sodium Chloride) 250 mls @ 166.67 mls/hr IV Q12H [facility] Last Infusion: 08/04/23 11:52 Dose: Infused Ipratropium [place] (Ipratropium [place] Adonis 0.06 % 15 Ml [place]) 2 spray NOSTRIL-B TID [facility] Last Admin: 08/04/23 10:32 Dose: Not Given Melatonin (Melatonin 3 Mg Tablet) 6 mg PO BEDTIME PRN PRN Reason: Insomnia Last Admin: 08/02/23 22:02 Dose: 6 mg Methylprednisolone Sodium Succinate (Methylprednisolone Sod Succ 40 Mg/Ml Vial) 40 mg IVPUSH Q24H [facility] Last Admin: 08/04/23 10:11 Dose: 40 mg Ondansetron HCl (Ondansetron Hcl 4 Mg/2 Ml Vial) 4 mg IVPUSH Q8H PRN PRN Reason: Nausea and Vomiting Ropinirole HCl (Ropinirole Hcl 2 Mg Tablet) 2 mg PO BEDTIME [facility] Last Admin: 08/03/23 21:13 Dose: 2 mg Sodium Chloride (0.9 % Sodium Chloride Flush 3 Ml Syringe) 3 ml IVFLUSH QSHIFT [facility] Last Admin: 08/04/23 10:12 Dose: 3 ml Home Medications Medication Instructions Recorded Confirmed Last Taken Type aspirin 81 mg tablet,delayed 81 mg PO DAILY 02/22/21 08/02/2323 History release (Adult Low Dose Aspirin) atorvastatin 10 mg tablet 10 mg PO DAILY 02/22/21 08/02/23 08/02/23 History citalopram 20 mg tablet 20 mg PO DAILY 02/22/21 08/02/23 08/02/23 History omeprazole 20 mg capsule,delayed 20 mg PO DAILY 02/22/21 08/02/23 08/02/23 History release ipratropium bromide 42 mcg (0.06 2 spray intranasal TID 08/02/23 08/02/23 08/02/23 History %) nasal spray rivaroxaban 2.5 mg tablet (Xarelto) 2.5 mg PO BID 08/02/23 08/02/23 08/02/23 History ropinirole 2 mg tablet 2 mg PO BEDTIME 08/02/23 08/02/23 08/02/23 History Physical Exam Vital Signs: Vital Signs: Last Vital Signs Temp 97.9 F 08/04/23 11:25 Pulse 75 08/04/23 11:25 Resp 18 08/04/23 11:25 BP 162/70 H 08/04/23 11:25 Pulse Ox 94 08/04/23 11:25 O2 Del Method Nasal Cannula 08/04/23 11:25 O2 Flow Rate 4 08/04/23 11:25 Oxygen Flow Rate 3 08/02/23 16:57 BMI result Body Mass Index 24.9 GENERAL APPEARANCE: in no acute distress, frail. NECK: no carotid bruit, no significant jugular venous distention. SKIN: no suspicious lesions, warm and dry. HEART: no murmurs, regular rate and rhythm. LUNGS: clear to auscultation bilaterally. ABDOMEN: soft, nontender. EXTREMITIES: no edema. PERIPHERAL PULSES: equal. NEUROLOGIC: No gross deficits, AAO X 3 Objective Labs and Meds 08/04/23 07:23 08/04/23 07:22 Lab results: Laboratory Results - last 24 hr 08/03/23 08/04/23 08/04/23 13:32 07:22 07:23 WBC 22.8 H RBC 3.63 L Hgb 8.3 L Hct 27.4 L MCV 75.5 L MCH 22.9 L MCHC 30.3 L RDW 22.2 H Plt Count 254 MPV 11.3 Absolute Nucleated RBC 0.020 H Nucleated RBC % (auto) 0.1 Sodium 142 Potassium 4.3 Chloride 114 H Carbon Dioxide 19 L Anion Gap 13 BUN 32 H Creatinine 1.35 Estim Creat Clear Calc 37.2 Estimated GFR 50 Random Glucose 118 H Lactic Acid F/U @ 4Hr 2.5 H* Calcium 9.0 B-Natriuretic Peptide 378 H Hold Yellow Top See Note Assessment and Plan (1) Preop cardiovascular exam: Status: Acute (2) HTN (hypertension): Status: Acute (3) CHF (congestive heart failure): Status: Acute Plan Pleasant 88 gentleman who is presenting with acute blood loss anemia due to GI bleed. Hemoglobin was 6.4 and was given blood transfusion. He was also hypoxic and dyspneic on admission. He has background of COPD on home oxygen. Was given IV diuretics and overall is improving. Does not look significantly overloaded currently. It appears he is not very functional but days denying any chest pain or any other complaints currently. I do not think he is high risk for endoscopy. We will get an echocardiogram on him tomorrow to assess his ejection fraction. Obviously if he has severe LV dysfunction that may change his risk. Continue gentle diuresis for now. If he needs blood transfusion then give extra dose of Lasix. Hold aspirin and Xarelto. Thank you for allowing me to participate in the care of your patient. Please feel free to contact me if you have any questions. Time Spent With Patient Time: Total time managing care of this patient today ____ minutes. Procedures Date of Service Date of Service: 08/04/23
[2023-08-04 16:00] VITALS: BP 161/74; PULSE 80; RESP 22; TEMP 36.2; O2SAT 90
[2023-08-04 18:45] VITALS: BP 134/62; PULSE 65; RESP 20; TEMP 36.4; O2SAT 100
[2023-08-04] MEDS: rOPINIRole HCL 2 MG TABLET PO (20:46)
[2023-08-04 23:18] VITALS: BP 152/69; PULSE 80; RESP 22; TEMP 36.6; O2SAT 96
[2023-08-05] VITALS (8 sets, daily range): BP systolic 106–156; BP diastolic 51–92; PULSE 65–84; RESP 18–20; TEMP 36.4–36.9; O2SAT 85–99
--- NOTE | 2023-08-05 07:00 | CA_ITS ---
Transthoracic Echocardiogram Patient (Last, First, Middle): Too Young M Gender: Male Date of : 1935 Age: 88 Procedure Date: 08/05/2023 Procedure Type: Transthoracic Echocardiogram Location: [facility] [place] Height: 172.72 cm Weight: 74.39 kg BSA: 1.88 m2 Heart Rate: bpm BP: 106 / 51 mmHg Underpresser Hand: Referring MD: Cecelia Dexter MD Symptoms: HF Study Quality: Good ECG Rhythm: Sinus Conclusions: - The left ventricular systolic function is hyperdynamic. The visually estimated ejection fraction is >70%. - Aortic valve calcification with possible mild stenosis. - No obvious valvular pathology seen on this study. Findings Left Ventricle Normal left ventricular cavity size. There is mildly increased left ventricular wall thickness. The left ventricular systolic function is hyperdynamic. The visually estimated ejection fraction is >70%. There is no evidence of regional wall motion abnormalities. Evidence suggests grade I (mild) diastolic dysfunction. Right Ventricle Normal right ventricular cavity size and systolic function. Atria The left atrium is mildly dilated. The right atrium is normal in size. Aortic Valve There is mild calcification of the aortic valve. There is no aortic valve regurgitation. Possible mild aortic stenosis. Mitral Valve The mitral valve appears normal. There is trace mitral valve regurgitation. There is no mitral valve stenosis. Pulmonic Valve The pulmonic valve is likely normal. Tricuspid Valve Normal tricuspid valve structure. There is trace tricuspid valve regurgitation. There is no evidence of pulmonary hypertension. Great Vessels The asc aorta is normal in size. Venous The inferior vena cava is normal in size and collapses greater than 50% with inspiration. Pericardium/Pleural There is no evidence of pericardial effusion. Prior Study Comparison No significant change compared to prior study dated: 02/23/2021. Recommendations, Care & Conclusions No obvious valvular pathology seen on this study. Measurements 2D Linear Measurements IVSd: 1.26 0.6-0.9/0.6-1.0 cm LVIDd: 4.29 3.9-5.3/4.2-5.9 cm LVIDd Index: 2.28 2.4-3.2/2.2-3.1 cm/m2 LVIDs: 2.63 2.0-3.6 cm LVPWd: 1.26 0.7-1.1 cm Ao Root: 3.40 2.1-3.5 cm LA Diam: 3.00 2.7-3.8/3.0-4.0 cm LAIDs Index: 1.60 1.5-2.3 cm/m2 LV Mass: 246.34 67-162/88-224 g LV Mass Index: 131.03 43-95/49-115 g/m2 LVOT Diam: 2.00 3.0+(-)1.3 cm 2D Systolic Function EF 4C: 65.50 >55% EF 2C: 54.30 >55% EF BiP: 61.90 >55% Mitral Valve MV Pk E: 0.99 MV PK A: 1.33 MV Decel Time: 324.00 E/A: 0.70 E'Lateral: 9.14 E'Medial: 4.46 E/E' Med: 22.20 E/E' Lat: 10.80 PHT: 95.00 MVA PHT: 2.32 Decel [place]: 3.06 Aortic Valve AoV Pk [place]: 2.42 AoV Mn [place]: 1.35 AoV VTI: 0.49 AoV Pk Grad: 23.00 Aov Mn Grad: 9.00 MONIQUE Cont.VTI: 1.90 LVOT LVOT Pk [place]: 1.43 LVOT Mn [place]: 0.86 LVOT VTI: 0.30 LVOT Pk Grad: 8.00 LVOT Mn Grad: 4.00 LVOT Diam: 2.00 LVOT Area: 3.14 Diastolic Function MV Pk E: 0.99 MV Pk A: 1.33 E/A: 0.70 E'Medial: 4.46 E/E' Med: 22.20 E' Laterial: 9.14 E/E' Lat: 10.80 Right Ventricle TAPSE (mm): 29.00 TVS' Cam[place]: 18.00 Tricuspid Valve TR Pk [place]: 1.82 TR Pk Grad: 13.00 RA Press: 3.00 RVSP: 16.00 Great Vessels Aorta Ao Root-2D: 3.40 2.0-3.7 cm Ao Asc: 3.10 2.1-3.4 cm Pulmonary Valve PV Pk [place]: 1.30 Peak PV Grad: 7.00 Updated in Other Vendor System with Status of Final Jose Christy MD electronically signed on 08/05/2023 3:20:30 PM with status of Final
[2023-08-05 08:06] LABS: Hematocrit 29.7 % (42.0-52.0); Hemoglobin 8.7 g/dl (14.0-18.0); Mean Corpuscular HGB Conc 29.3 g/dl (31.0-36.0); Mean Corpuscular Hemoglobin 22.4 pg (27.0-33.0); Mean Corpuscular Volume 76.3 fL (80.0-98.0); Mean Platelet Volume 11.8 fL (9.4-12.4); Platelet Count 285 X10*3/uL (160-400); Red Blood Count 3.89 X10*6/uL (4.60-5.80); White Blood Count 19.8 X10*3/uL (4.8-10.8)
[2023-08-05 08:24] LABS: B Type Natriuretic Peptide 125 pg/mL (<100)
[2023-08-05 09:00] LABS: Anion Gap 12 (12-20); Blood Urea Nitrogen 41 mg/dL (9-16); Calcium 8.7 mg/dL (8.4-10.2); Carbon Dioxide 23 mmol/L (22-29); Chloride 113 mmol/L (96-108); Estimated Glomerular Filt Rate 50; Glucose Random 104 mg/dL (60-115); Magnesium 2.6 mg/dL (1.6-2.6); Sodium 144 mmol/L (135-145)
[2023-08-05] MEDS: Furosemide 40 MG/4 ML VIAL IVPUSH (09:09)
[2023-08-05] MEDS: methylPREDNISolone Sod Succ 40 MG/ML VIAL IVPUSH (09:14)
[2023-08-05] MEDS: Doxycycline Hyclate 100 MG in 0.9 % Sodium Chloride 250 ML 166.67 MG IV ×2 (09:14→22:19)
[2023-08-05] MEDS: 0.9 % Sodium Chloride Flush 3 ML SYRINGE IVFLUSH ×3 (09:15→23:44)
[2023-08-05] MEDS: Albuterol/Iprat 2.5/0.5MG 3 ML AMPUL.NEB INHALE (11:27)
--- NOTE | 2023-08-05 11:52 | MHC.CM.PN ---
EMR reviewed and per MD rounds, pt is not medically cleared for D/C due to pending endoscopy tomorrow. anticipates pt will be ready for D/C on Saturday. CM will continue to follow.
--- NOTE | 2023-08-05 13:47 | HO.PM.IMPN ---
Subjective Subjective Date of Service: 08/05/23 Interval History: no hematochezia or melena denies dyspnea Review of Systems Review of Systems: Yes all other systems are reviewed and are negative Physical Exam Vital Signs: Vital Signs: Last Vital Signs Temp 97.5 F 08/05/23 11:22 Pulse 84 08/05/23 11:27 Resp 18 08/05/23 11:27 BP 135/61 08/05/23 11:22 Pulse Ox 85 L 08/05/23 11:35 O2 Del Method Nasal Cannula 08/05/23 11:22 O2 Flow Rate 3 08/05/23 11:22 Oxygen Flow Rate 3 08/02/23 16:57 BMI result Body Mass Index 24.9 Gen: in no acute distress HEENT: sclera anicteric, moist but pale mucus membranes Neck: supple Lungs: diminished Heart: regular rate and rhythm, no murmurs Abd: soft, non-tender, non-distended Ext: no edema Skin: warm/well-perfused Neuro: alert and oriented x3, no focal findings Psych: appropriate affect Objective Data Active Medications Acetaminophen (Acetaminophen 325 Mg Tablet) 650 mg PO Q6H PRN PRN Reason: Pain, Mild (Pain Scale 1-3) Last Admin: 08/04/23 10:23 Dose: 650 mg Documented By: GLADYS Acetaminophen (Acetaminophen Supp 650 Mg Supp.Rect) 650 mg MA Q6H PRN PRN Reason: Pain, Mild (Pain Scale 1-3) Albuterol/Ipratropium (Albuterol/Iprat 2.5/0.5mg 3 Ml Ampul.Neb) 3 ml INHALE RQ4H WHILE AWAKE [facility] Last Admin: 08/05/23 11:27 Dose: 3 ml Documented By: LAWRENCE Albuterol/Ipratropium (Albuterol/Iprat 2.5/0.5mg 3 Ml Ampul.Neb) 3 ml INHALE Q4H PRN PRN Reason: Wheezing Last Admin: 08/03/23 00:23 Dose: 3 ml Documented By: RAVEN Atorvastatin Calcium (Atorvastatin Calcium 10 Mg Tablet) 10 mg PO DAILY [facility] Last Admin: 08/05/23 09:17 Dose: Not Given Documented By: JACKSON Non-Admin Reason: Patient Refused Bisacodyl (Bisacodyl 5 Mg Tablet.) 10 mg PO ONCE ONE Stop: 08/06/23 13:01 Escitalopram Oxalate (Escitalopram Oxalate 10 Mg Tablet) 10 mg PO DAILY [facility] Last Admin: 08/05/23 09:17 Dose: Not Given Documented By: JACKSON Non-Admin Reason: Patient Refused Fluticasone/Umeclidinium/Vilanterol (Fluticasone/Umeclidinium/Vilanterol 200/62.5/25 Blst.W.Dev) 1 puff INHALE RDAILY [facility] Last Admin: 08/05/23 08:05 Dose: Not Given Documented By: LAWRENCE Non-Admin Reason: Patient Asleep Furosemide (Furosemide 40 Mg/4 Ml Vial) 40 mg IVPUSH DAILY [facility]; Protocol Doxycycline Hyclate 100 mg/ (Sodium Chloride) 250 mls @ 166.67 mls/hr IV Q12H [facility] Last Infusion: 08/05/23 10:47 Dose: Infused Documented By: JACKSON Ipratropium [place] (Ipratropium [place] Adonis 0.06 % 15 Ml [place]) 2 spray NOSTRIL-B TID [facility] Last Admin: 08/05/23 10:47 Dose: Not Given Documented By: JACKSON Non-Admin Reason: Med Not Available Melatonin (Melatonin 3 Mg Tablet) 6 mg PO BEDTIME PRN PRN Reason: Insomnia Last Admin: 08/02/23 22:02 Dose: 6 mg Documented By: GUZMAN Methylprednisolone Sodium Succinate (Methylprednisolone Sod Succ 40 Mg/Ml Vial) 40 mg IVPUSH Q24H [facility] Last Admin: 08/05/23 09:14 Dose: 40 mg Documented By: JACKSON Ondansetron HCl (Ondansetron Hcl 4 Mg/2 Ml Vial) 4 mg IVPUSH Q8H PRN PRN Reason: Nausea and Vomiting Polyethylene Glycol/Electrolytes (Peg 3350/Na Sulf,Bicarb,Cl/Kcl 4,000 Ml Soln.Recon) 4,000 ml PO ONCE ONE Stop: 08/05/23 15:01 Ropinirole HCl (Ropinirole Hcl 2 Mg Tablet) 2 mg PO BEDTIME [facility] Last Admin: 08/04/23 20:46 Dose: 2 mg Documented By: TIFFANY Sodium Chloride (0.9 % Sodium Chloride Flush 3 Ml Syringe) 3 ml IVFLUSH QSHIFT [facility] Last Admin: 08/05/23 09:15 Dose: 3 ml Documented By: JACKSON Labs 08/05/23 07:34 08/05/23 07:34 Labs: Laboratory Results - last 24 hr 08/05/23 07:34 MCV 76.3 L MCH 22.4 L MCHC 29.3 L RDW 23.0 H Plt Count 285 MPV 11.8 Absolute Nucleated RBC 0.000 Nucleated RBC % (auto) 0.0 Anion Gap 12 Estim Creat Clear Calc 37.0 Estimated GFR 50 Random Glucose 104 Calcium 8.7 Magnesium 2.6 B-Natriuretic Peptide 125 H Microbiology Microbiology Results: Microbiology 08/02/23 17:11 Blood Culture - Preliminary Blood - Arterial No growth after 48 hours. 08/02/23 17:11 Blood Culture - Preliminary Blood - Arterial No growth after 48 hours. Assessment and Plan (1) GI (gastrointestinal bleed): Status: Acute Plan d4 88yo M with COPD, chronic hypoxic resp failure on 2L home O2, HTN, PAD on ASA + rivaroxaban sent to ED from due to hypoxia and dyspnea found to be anemic with Hb 6.4, also worsening hypoxia COPD/CHF exacerbations acute blood loss anemia due to GI bleed - plan EGD/C-scope 08/05/23 per GI; pre-procedure Cardiology + Pulmonology evaluations requestesd - hold ASA + rivaroxaban; continue IV PPI - monitor H+H; transfused 2u pRBCs 08/02/23 COPD exacerbation - continue IV methylprednisolone, standing/prn ipratropium/albuterol, doxycycline 08/03-, Trelegy CHF exacerbation unknown EF - TTE pending, continue IV fuorsemide, monitor BNP/I+O/BMP, Cardiology consult as above HLD - statin GERD - PPI PAD - statin; hold ASA + rivaroxaban RLS - ropinirole mood disorder - escitalopram VTE ppx - SCDs dispo - TBD In my clinical judgment, the patient requires continued inpatient hospitalization for the following reasons: endoscopic evaluation of GI bleed, IV diuresis Time Spent With Patient Time: Total time managing care of this patient today __40_ minutes. Quality Stroke Does the patient have a stroke diagnosis?: No VTE Prior VTE?: No VTE Risk Level:: Medical - moderate - high VTE Device Contraindication: N/A - Device Ordered VTE Drug Contraindication: Treatment Not Indicated
[2023-08-05] MEDS: PEG 3350/Na Sulf,Bicarb,Cl/KCL 4,000 ML SOLN.RECON 4000 ML PO (14:30)
--- NOTE | 2023-08-05 14:45 | PC.NURSE ---
During rounding ~14:45 this nurse noted that pt had urinated red punch colored urine. Pt voices no new complaints. Provider was made aware
[2023-08-05 14:49] LABS: Influenza A PCR NEGATIVE (Negative); Influenza B PCR NEGATIVE (Negative); Resp Syncy Virus RNA Qual PCR NEGATIVE (Negative); SARS COV2 PCR INHOUSE POSITIVE (Negative)
[2023-08-05 16:04] LABS: C Reactive Protein < 0.10 mg/dL (< or = 0.50)
[2023-08-05 16:16] LABS: Troponin-I High Sensitivity 57.1 ng/L (<3.5-35.0)
[2023-08-05] MEDS: Remdesivir 200 MG in 0.9 % Sodium Chloride 210 ML 105 MG IV (17:10)
[2023-08-05] MEDS: dexAMETHasone sod phosphate 4 MG/ML VIAL 6 MG IVPUSH (17:10)
[2023-08-05] MEDS: Melatonin 3 MG TABLET 6 MG PO (22:19)
[2023-08-05] MEDS: rOPINIRole HCL 2 MG TABLET PO (22:19)
[2023-08-06] VITALS (9 sets, daily range): BP systolic 136–159; BP diastolic 63–71; PULSE 74–94; RESP 18–20; TEMP 36.1–37.4; O2SAT 93–97
[2023-08-06 07:42] LABS: Hematocrit 30.4 % (42.0-52.0); Hemoglobin 8.8 g/dl (14.0-18.0); Mean Corpuscular HGB Conc 28.9 g/dl (31.0-36.0); Mean Corpuscular Hemoglobin 22.1 pg (27.0-33.0); Mean Corpuscular Volume 76.2 fL (80.0-98.0); Mean Platelet Volume 11.3 fL (9.4-12.4); Platelet Count 238 X10*3/uL (160-400); Red Blood Count 3.99 X10*6/uL (4.60-5.80); Red Cell Distribution Width 23.6 % (11.0-16.0); White Blood Count 15.3 X10*3/uL (4.8-10.8)
[2023-08-06 07:58] LABS: Anion Gap 13 (12-20); Blood Urea Nitrogen 35 mg/dL (9-16); Calcium 8.7 mg/dL (8.4-10.2); Carbon Dioxide 25 mmol/L (22-29); Chloride 109 mmol/L (96-108); Creatinine Clr Calc Pharmacy 44.5; Estimated Glomerular Filt Rate > 60; Glucose Random 109 mg/dL (60-115); Magnesium 2.4 mg/dL (1.6-2.6); Potassium 4.1 mmol/L (3.3-5.1); Sodium 143 mmol/L (135-145)
[2023-08-06 08:07] LABS: B Type Natriuretic Peptide 111 pg/mL (<100)
[2023-08-06] MEDS: Albuterol/Iprat 2.5/0.5MG 3 ML AMPUL.NEB INHALE ×4 (08:33→18:59)
[2023-08-06] MEDS: Fluticasone/Umeclidinium/Vilanterol 200/62.5/25 BLST.W.DEV 1 PUFF INHALE (08:40)
[2023-08-06] MEDS: Pantoprazole Sodium 40 MG/10 ML VIAL IVPUSH ×2 (09:43→16:51)
[2023-08-06] MEDS: dexAMETHasone sod phosphate 4 MG/ML VIAL 6 MG IVPUSH (09:43)
[2023-08-06] MEDS: Doxycycline Hyclate 100 MG in 0.9 % Sodium Chloride 250 ML 166.67 MG IV ×2 (09:44→20:49)
[2023-08-06] MEDS: 0.9 % Sodium Chloride Flush 3 ML SYRINGE IVFLUSH ×4 (09:45→20:49)
[2023-08-06] MEDS: Atorvastatin Calcium 10 MG TABLET PO (10:22)
[2023-08-06] MEDS: Escitalopram Oxalate 10 MG TABLET PO ×2 (10:22→10:25)
[2023-08-06] MEDS: Acetaminophen 325 MG TABLET 650 MG PO (10:53)
--- NOTE | 2023-08-06 14:07 | P.PNIM_ITS ---
Subjective Subjective Date of Service: 08/06/23 Interval History: C/o gross hematuria + burning with urination Breathing is OK No hematochezia or melena Review of Systems Review of Systems: Yes all other systems are reviewed and are negative Physical Exam 2 Vital Signs: Vital Signs: Last Vital Signs Temp 99.4 F 08/06/23 11:28 Pulse 76 08/06/23 12:38 Resp 20 08/06/23 12:38 BP 159/71 H 08/06/23 11:28 Pulse Ox 93 08/06/23 11:28 O2 Del Method Nasal Cannula 08/06/23 11:28 O2 Flow Rate 2 08/06/23 11:28 Oxygen Flow Rate 3 08/02/23 16:57 BMI result Body Mass Index 24.9 Gen: in no acute distress HEENT: sclera anicteric, moist but pale mucus membranes Neck: supple Lungs: diminished Heart: regular rate and rhythm, no murmurs Abd: soft, non-tender, non-distended Ext: no edema Skin: warm/well-perfused Neuro: alert and oriented x3, no focal findings Psych: appropriate affect Objective Data Active Medications Acetaminophen (Acetaminophen 325 Mg Tablet) 650 mg PO Q6H PRN PRN Reason: Pain, Mild (Pain Scale 1-3) Last Admin: 08/06/23 10:53 Dose: 650 mg Documented By: BHARAT Acetaminophen (Acetaminophen Supp 650 Mg Supp.Rect) 650 mg MA Q6H PRN PRN Reason: Pain, Mild (Pain Scale 1-3) Albuterol/Ipratropium (Albuterol/Iprat 2.5/0.5mg 3 Ml Ampul.Neb) 3 ml INHALE RQ4H WHILE AWAKE [facility] Last Admin: 08/06/23 12:37 Dose: 3 ml Documented By: CHARLIE Albuterol/Ipratropium (Albuterol/Iprat 2.5/0.5mg 3 Ml Ampul.Neb) 3 ml INHALE Q2H PRN PRN Reason: Wheezing Atorvastatin Calcium (Atorvastatin Calcium 10 Mg Tablet) 10 mg PO DAILY [facility] Last Admin: 08/06/23 10:22 Dose: 10 mg Documented By: BHARAT Dexamethasone Sodium Phosphate (Dexamethasone Sod Phosphate 4 Mg/Ml Vial) 6 mg IVPUSH DAILY [facility] Last Admin: 08/06/23 09:43 Dose: 6 mg Documented By: BHARAT Escitalopram Oxalate (Escitalopram Oxalate 10 Mg Tablet) 10 mg PO DAILY [facility] Last Admin: 08/06/23 10:22 Dose: 10 mg Documented By: BHARAT Fluticasone/Umeclidinium/Vilanterol (Fluticasone/Umeclidinium/Vilanterol 200/62.5/25 Blst.W.Dev) 1 puff INHALE RDAILY [facility] Last Admin: 08/06/23 08:40 Dose: 1 puff Documented By: CHARLIE Furosemide (Furosemide 40 Mg Tablet) 40 mg PO DAILY [facility]; Protocol Doxycycline Hyclate 100 mg/ (Sodium Chloride) 250 mls @ 166.67 mls/hr IV Q12H [facility] Last Admin: 08/06/23 09:44 Dose: 166.67 mls/hr Documented By: BHARAT Remdesivir 100 mg/ Sodium (Chloride) 230 mls @ 115 mls/hr IV Q24H [facility] Stop: 08/09/23 17:59 Ipratropium [place] (Ipratropium [place] Adonis 0.06 % 15 Ml [place]) 2 spray NOSTRIL-B TID [facility] Last Admin: 08/05/23 21:00 Dose: Not Given Documented By: REAL Non-Admin Reason: Patient Refused Melatonin (Melatonin 3 Mg Tablet) 6 mg PO BEDTIME PRN PRN Reason: Insomnia Last Admin: 08/05/23 22:19 Dose: 6 mg Documented By: REAL Ondansetron HCl (Ondansetron Hcl 4 Mg/2 Ml Vial) 4 mg IVPUSH Q8H PRN PRN Reason: Nausea and Vomiting Pantoprazole Sodium (Pantoprazole Sodium 40 Mg/10 Ml Vial) 40 mg IVPUSH BID@0630,1630 [facility] Last Admin: 08/06/23 09:43 Dose: 40 mg Documented By: BHARAT Ropinirole HCl (Ropinirole Hcl 2 Mg Tablet) 2 mg PO BEDTIME [facility] Last Admin: 08/05/23 22:19 Dose: 2 mg Documented By: REAL Sodium Chloride (0.9 % Sodium Chloride Flush 3 Ml Syringe) 3 ml IVFLUSH QSHIFT [facility] Last Admin: 08/06/23 10:26 Dose: 3 ml Documented By: BHARAT Labs 08/06/23 07:14 08/06/23 07:14 Labs: Laboratory Results - last 24 hr 08/05/23 08/05/23 08/06/23 07:34 13:59 07:14 MCV 76.2 L MCH 22.1 L MCHC 28.9 L RDW 23.6 H Plt Count 238 MPV 11.3 Absolute Nucleated RBC 0.000 Nucleated RBC % (auto) 0.0 Anion Gap 13 Estim Creat Clear Calc 44.5 Estimated GFR > 60 Random Glucose 109 Calcium 8.7 Magnesium 2.4 C-Reactive Protein < 0.10 B-Natriuretic Peptide 111 H Influenza Type A (PCR) NEGATIVE Influenza Type B (PCR) NEGATIVE RSV RNA Qual (PCR) NEGATIVE SARS-CoV-2 RNA (RT-PCR) POSITIVE A Assessment and Plan (1) GI (gastrointestinal bleed): Status: Acute Plan d5 88yo M with COPD, chronic hypoxic resp failure on 2L home O2, HTN, PAD on ASA + rivaroxaban sent to ED from due to hypoxia and dyspnea found to be anemic with Hb 6.4, also worsening hypoxia COPD/CHF exacerbations was awaiting EGD/C-scope but then tested positive for Covid-19 Covid-19 positive - isolation, remdesivir 08/05-08/09/23, dexamethasone 08/05-08/14/23, monitor respiratory status and CRP acute blood loss anemia due to GI bleed - GI consulted [Dr Keys]; EGD + C-scope on hold due to Covid-19 - pre-procedure Cardiology + Pulmonology evaluations done - hold ASA + rivaroxaban; continue IV PPI - monitor H+H; transfused 2u pRBCs 08/02/23 with appropriate response, H+H now stable acute/chronic hypoxic resp failure - weaned back to home O2 of 2L COPD exacerbation - continue IV dexamethasone, standing/prn ipratropium/albuterol, doxycycline 08/03-, Trelegy hematuria - Urology consulted, ASA + rivoraxaban on hold, not retaining urine - will treat empirically for UTI with ceftriaxone 08/06-, check UCx, give Pyridium acute HFpEF - TTE 08/05/23: - The left ventricular systolic function is hyperdynamic. The visually estimated ejection fraction is >70%. - Aortic valve calcification with possible mild stenosis. - No obvious valvular pathology seen on this study. Left Ventricle Normal left ventricular cavity size. There is mildly increased left ventricular wall thickness. The left ventricular systolic function is hyperdynamic. The visually estimated ejection fraction is >70%. There is no evidence of regional wall motion abnormalities. Evidence suggests grade I (mild) diastolic dysfunction. - appears euvolemic now, change to PO furosemide, Cardiology consulted HLD - statin GERD - PPI PAD - statin; hold ASA + rivaroxaban RLS - ropinirole mood disorder - escitalopram VTE ppx - SCDs dispo - STR recommended In my clinical judgment, the patient requires continued inpatient hospitalization for the following reasons: endoscopic evaluation of GI bleed, Covid-19 Time Spent With Patient Time: Total time managing care of this patient today ___35_ minutes. Quality Stroke Does the patient have a stroke diagnosis?: No VTE Prior VTE?: No VTE Risk Level:: Medical - moderate - high VTE Device Contraindication: N/A - Device Ordered VTE Drug Contraindication: Treatment Not Indicated
--- NOTE | 2023-08-06 14:17 | MHC.CM.PN ---
This CM spoke with pt to discuss PT recommendations for STR, pt states he does not want STR and would like to go home with [facility]NA instead. Pt would like to discuss it with his daughter first before deciding on an agency. CM will continue to follow.
--- NOTE | 2023-08-06 15:38 | PM.UROCN ---
History of Present Illness Consult details Consult date: 08/06/23 Narrative: 88-year-old male with a PMH significant for?COPD, chronic hypoxic respiratory failure on 2L home O2, HTN, PAD on Xarelto and aspirin, GERD and restless legs syndrome admitted?with?complaints?of?shortness of breath?for?the?past?few?days. COVID?positive urology?called?to?evaluate?patient?due?to?acute?onset?of?hematuria.??Xarelto?and?aspirin?on?hold.??In?discussion?with?the?patient?he?states?he?has?noticed?intermittent?blood?in?the?urine?today?he?had?pain?with?voiding.??He?states?that?he?wears?pads?a t?home?and?is?incontinent?of?urine. Examination:?Abdomen?soft?no?suprapubic?tenderness?elicited.??Bladder?scan?random--263?mL? Review of Systems Review of Systems: 10 point?review?of?systems?negative?other?than?stated?in?HPI PMFSH Past Medical History Medical History HTN (hypertension) Bilateral carotid artery disease Family History Family History Father CVD (cardiovascular disease) Mother No problems noted. Surgical History Surgical History Hx of prostatectomy Hx of hernia repair Hx of rotator cuff surgery Social History Social History Household Members: None Housing: House Do you presently have visiting nurse or other home services: Yes Alcohol intake: former Patient Tobacco Use Status: Former Tobacco user Cigarette Packs Per Day: 2 Cigarettes Per Day: 40.0 service: No Meds Allergies Allergy/AdvReac Type Severity Reaction Status Date / Time No Known Allergies Allergy Unknown NOT Verified 08/02/23 15:05 APPLICABLE Active Medications: Current Medications Acetaminophen (Acetaminophen 325 Mg Tablet) 650 mg PO Q6H PRN PRN Reason: Pain, Mild (Pain Scale 1-3) Last Admin: 08/06/23 10:53 Dose: 650 mg Acetaminophen (Acetaminophen Supp 650 Mg Supp.Rect) [address] Q6H PRN PRN Reason: Pain, Mild (Pain Scale 1-3) Albuterol/Ipratropium (Albuterol/Iprat 2.5/0.5mg 3 Ml Ampul.Neb) 3 ml INHALE RQ4H WHILE AWAKE [facility] Last Admin: 08/06/23 12:37 Dose: 3 ml Albuterol/Ipratropium (Albuterol/Iprat 2.5/0.5mg 3 Ml Ampul.Neb) 3 ml INHALE Q2H PRN PRN Reason: Wheezing Atorvastatin Calcium (Atorvastatin Calcium 10 Mg Tablet) 10 mg PO DAILY [facility] Last Admin: 08/06/23 10:22 Dose: 10 mg Dexamethasone Sodium Phosphate (Dexamethasone Sod Phosphate 4 Mg/Ml Vial) 6 mg IVPUSH DAILY [facility] Last Admin: 08/06/23 09:43 Dose: 6 mg Escitalopram Oxalate (Escitalopram Oxalate 10 Mg Tablet) 10 mg PO DAILY [facility] Last Admin: 08/06/23 10:25 Dose: 10 mg Fluticasone/Umeclidinium/Vilanterol (Fluticasone/Umeclidinium/Vilanterol 200/62.5/25 Blst.W.Dev) 1 puff INHALE RDAILY [facility] Last Admin: 08/06/23 08:40 Dose: 1 puff Furosemide (Furosemide 40 Mg Tablet) 40 mg PO DAILY [facility]; Protocol Doxycycline Hyclate 100 mg/ (Sodium Chloride) 250 mls @ 166.67 mls/hr IV Q12H [facility] Last Admin: 08/06/23 09:44 Dose: 166.67 mls/hr Remdesivir 100 mg/ Sodium (Chloride) 230 mls @ 115 mls/hr IV Q24H [facility] Stop: 08/09/23 17:59 Ceftriaxone Sodium 1 gm/ (Sodium Chloride) 50 mls @ 100 mls/hr IV Q24H [facility] Ipratropium [place] (Ipratropium [place] Adonis 0.06 % 15 Ml [place]) 2 spray NOSTRIL-B TID [facility] Last Admin: 08/05/23 21:00 Dose: Not Given Melatonin (Melatonin 3 Mg Tablet) 6 mg PO BEDTIME PRN PRN Reason: Insomnia Last Admin: 08/05/23 22:19 Dose: 6 mg Ondansetron HCl (Ondansetron Hcl 4 Mg/2 Ml Vial) 4 mg IVPUSH Q8H PRN PRN Reason: Nausea and Vomiting Pantoprazole Sodium (Pantoprazole Sodium 40 Mg/10 Ml Vial) 40 mg IVPUSH BID@0630,1630 [facility] Last Admin: 08/06/23 09:43 Dose: 40 mg Phenazopyridine HCl (Phenazopyridine Hcl 200 Mg Tablet) 200 mg PO TIDWM [facility] Stop: 08/08/23 12:01 Ropinirole HCl (Ropinirole Hcl 2 Mg Tablet) 2 mg PO BEDTIME [facility] Last Admin: 08/05/23 22:19 Dose: 2 mg Sodium Chloride (0.9 % Sodium Chloride Flush 3 Ml Syringe) 3 ml IVFLUSH QSHIFT [facility] Last Admin: 08/06/23 10:26 Dose: 3 ml Home Medications Medication Instructions Recorded Confirmed Last Taken Type aspirin 81 mg tablet,delayed 81 mg PO DAILY 02/22/21 08/02/23 08/02/23 History release (Adult Low Dose Aspirin) atorvastatin 10 mg tablet 10 mg PO DAILY 02/22/21 08/02/23 08/02/23 History citalopram 20 mg tablet 20 mg PO DAILY 02/22/21 08/02/23 08/02/23 History omeprazole 20 mg capsule,delayed 20 mg PO DAILY 02/22/21 08/02/23 08/02/23 History release ipratropium bromide 42 mcg (0.06 2 spray intranasal TID 08/02/23 08/02/23 08/02/23 History %) nasal spray rivaroxaban 2.5 mg tablet (Xarelto) 2.5 mg PO BID 08/02/23 08/02/23 08/02/23 History ropinirole 2 mg tablet 2 mg PO BEDTIME 08/02/23 08/02/23 08/02/23 History Physical Exam Vital Signs: Vital Signs: Last Vital Signs Temp 99.4 F 08/06/23 11:28 Pulse 76 08/06/23 12:38 Resp 20 08/06/23 12:38 BP 159/71 H 08/06/23 11:28 Pulse Ox 93 08/06/23 11:28 O2 Del Method Nasal Cannula 08/06/23 11:28 O2 Flow Rate 2 08/06/23 11:28 Oxygen Flow Rate 3 08/02/23 16:57 BMI result Body Mass Index 24.9 Const: General: healthy appearing, no acute distress and well developed Orientation/consciousness: patient oriented x3 HEENT: Head: Yes normocephalic and Yes atraumatic Eyes: Conjunctivae: conjunctivae normal Neck: Neck: Yes normal visual inspection Chest: Chest palpation & inspection: normal inspection of the chest Resp: Effort & Inspection: normal respiratory effort Cardio: Rate: regular rate GI: Inspection: Yes normal to inspection Palpation (GI): Soft to palpation : Penis: normal penis Scrotum: scrotum normal Skin: General skin exam: no rashes or lesions noted Neuro: General: patient oriented x3 Psych: Appearance: grossly normal Affect: normal affect Results Labs 08/06/23 07:14 08/06/23 07:14 Labs: Abnormal lab results 08/05/23 08/06/23 Range/Units 15:29 07:14 WBC 15.3 H (4.8-10.8) X10*3/uL RBC 3.99 L (4.60-5.80) X10*6/uL Hgb 8.8 L (14.0-18.0) g/dl Hct 30.4 L (42.0-52.0) % MCV 76.2 L (80.0-98.0) fL MCH 22.1 L (27.0-33.0) pg MCHC 28.9 L (31.0-36.0) g/dl RDW 23.6 H (11.0-16.0) % Chloride 109 H (96-108) mmol/L BUN 35 H (9-16) mg/dL Troponin I High Sens 57.1 H (<3.5-35.0) ng/L B-Natriuretic Peptide 111 H (<100) pg/mL Short CBC 08/06/23 Range/Units 07:14 WBC 15.3 H (4.8-10.8) X10*3/uL Hgb 8.8 L (14.0-18.0) g/dl Hct 30.4 L (42.0-52.0) % Plt Count 238 (160-400) X10*3/uL BMP 08/06/23 07:14 Sodium 143 Potassium 4.1 Chloride 109 H Carbon Dioxide 25 BUN 35 H Creatinine 1.13 Calcium 8.7 All other labs normal. Assessment and Plan (1) Anemia: Status: Acute (2) Urinary incontinence without sensory awareness: Status: Acute (3) Dysuria: Status: Acute (4) SARS-CoV-2 positive: Status: Acute Plan Bedside?renal?bladder?ultrasound Pyridium?p.r.n.?p.o. Time Spent With Patient Time: Total time managing care of this patient today ____ minutes. Procedures Date of Service Date of Service: 08/06/23
[2023-08-06] MEDS: cefTRIAXone sodium 1 GM in 0.9 % Sodium Chloride 50 ML IV (16:46)
[2023-08-06] MEDS: Remdesivir 100 MG in 0.9 % Sodium Chloride 230 ML 115 MG IV (16:51)
[2023-08-06] MEDS: Phenazopyridine HCL 200 MG TABLET PO (18:16)
[2023-08-06] MEDS: rOPINIRole HCL 2 MG TABLET PO (20:49)
[2023-08-06] MEDS: Melatonin 3 MG TABLET 6 MG PO (20:49)
[2023-08-07] VITALS (8 sets, daily range): BP systolic 141–158; BP diastolic 65–71; PULSE 65–79; RESP 18–20; TEMP 36.3–37.1; O2SAT 90–100
[2023-08-07] MEDS: Zolpidem Tartrate 5 MG TABLET PO ×2 (00:03→22:28)
[2023-08-07] MEDS: Pantoprazole Sodium 40 MG/10 ML VIAL IVPUSH ×2 (06:29→15:29)
[2023-08-07 07:41] LABS: Hematocrit 25.8 % (42.0-52.0); Hemoglobin 7.9 g/dl (14.0-18.0)
[2023-08-07 07:51] LABS: C Reactive Protein < 0.04 mg/dL (< or = 0.50)
[2023-08-07 08:01] LABS: White Blood Count 12.6 X10*3/uL (4.8-10.8)
[2023-08-07] MEDS: Doxycycline Hyclate 100 MG in 0.9 % Sodium Chloride 250 ML 166.67 MG IV ×2 (08:06→22:27)
[2023-08-07] MEDS: Phenazopyridine HCL 200 MG TABLET PO ×2 (08:11→15:29)
[2023-08-07] MEDS: Furosemide 40 MG TABLET PO (08:11)
[2023-08-07] MEDS: Escitalopram Oxalate 10 MG TABLET PO (08:11)
[2023-08-07] MEDS: Atorvastatin Calcium 10 MG TABLET PO (08:11)
[2023-08-07] MEDS: dexAMETHasone sod phosphate 4 MG/ML VIAL 6 MG IVPUSH (08:12)
--- NOTE | 2023-08-07 08:35 | P.PNUR_ITS ---
Subjective Subjective Date of Service: 08/07/23 Interval history: Follow-up hematuria. Reviewed ultrasound Renal retroperitoneum, kidneys within normal limits, bladder empty limited evaluation. Recommend outpatient follow-up office cystoscopy Physical Exam 2 Vital Signs: Vital Signs: Last Vital Signs Temp 97.9 F 08/07/23 07:13 Pulse 65 08/07/23 07:13 Resp 20 08/07/23 07:13 BP 141/67 H 08/07/23 07:13 Pulse Ox 97 08/07/23 07:13 O2 Del Method Nasal Cannula 08/07/23 07:13 O2 Flow Rate 2 08/07/23 07:13 Oxygen Flow Rate 3 08/02/23 16:57 BMI result Body Mass Index 24.9 Urology Results Labs 08/07/23 07:26 08/06/23 07:14 Labs: Laboratory Results - last 24 hr 08/07/23 07:26 WBC 12.6 H Hgb 7.9 L Hct 25.8 L C-Reactive Protein < 0.04 Date of Service: 08/06/23 EXAMINATION: US RETROPERITONEAL LIMITED (RENAL ONLY) CLINICAL INFORMATION: Hematuria. COMPARISON: CT abdomen and pelvis 01/16/2023. TECHNIQUE: Real-time imaging of the kidneys. This is a somewhat limited portable bedside ultrasound examination. FINDINGS: RIGHT KIDNEY: The right kidney measures approximately 9 x 4.5 x 4.4 cm (SAG x AP x TRV). The kidney is normal in size, contour, and echogenicity. Renal cortical thickness is normal. No calculi are seen. No focal parenchymal lesions. No hydronephrosis. LEFT KIDNEY: The left kidney measures approximately 9.9 x 5.1 x 4 cm (SAG x AP x TRV). The kidney is normal in size, contour, and echogenicity. Renal cortical thickness is normal. No renal calculi are seen. No hydronephrosis. There is a 1.5 cm simple cyst of the upper pole. No renal imaging follow-up recommended. URINARY BLADDER: Empty, not well evaluated. US/US retroperitoneal limited IMPRESSION: No specific source of hematuria is identified. No sonographic evidence of renal calculi or hydronephrosis. Progress Note: A&P Assessment and plan (1) Urinary incontinence without sensory awareness: Status: Acute (2) Hematuria: Status: Acute Plan H/O prostatectomy, CoMorbidity. Pt on isolation, Covid positive US retroperitoneum, kidneys within normal limits, bladder empty limited evaluation. Recommend outpatient follow-up office cystoscopy Time Spent With Patient Time: Total time managing care of this patient today ____ minutes. Progress Note: Quality Stroke Does the patient have a stroke diagnosis?: No
[2023-08-07] MEDS: Albuterol/Iprat 2.5/0.5MG 3 ML AMPUL.NEB INHALE ×2 (11:10→19:18)
--- NOTE | 2023-08-07 11:56 | HO.PM.IMPN ---
Subjective Subjective Date of Service: 08/07/23 Interval History: H/H dropped to 7.9/25.8% No hematochezia or melena Urine output orange- on pyridium, no gross hematuria. No dysuria No sob, wheezing. No chest pain afebrile Review of Systems Review of Systems: Yes all other systems are reviewed and are negative Physical Exam Vital Signs: Vital Signs: Last Vital Signs Temp 98.8 F 08/07/23 11:22 Pulse 72 08/07/23 11:22 Resp 20 08/07/23 11:22 BP 141/65 H 08/07/23 11:22 Pulse Ox 100 08/07/23 11:22 O2 Del Method Nasal Cannula 08/07/23 11:22 O2 Flow Rate 2 08/07/23 11:22 Oxygen Flow Rate 3 08/02/23 16:57 BMI result Body Mass Index 24.9 Constitutional - Awake and Alert, No apparent distress Eyes - PERRLA, EOMI Cardiovascular - S1S2, RRR, No edema Respiratory - Normal lung expansion, Normal respiratory effort, No respiratory distress, CTA bilaterally Gastrointestinal - NT / ND; +BS; No rebound or guarding Extremities - no calf tenderness bilaterally, no swelling Skin - Warm/Dry Neurological - Alert & oriented x3 Psychological - Appropriate affect Objective Data Active Medications Acetaminophen (Acetaminophen 325 Mg Tablet) 650 mg PO Q6H PRN PRN Reason: Pain, Mild (Pain Scale 1-3) Last Admin: 08/06/23 10:53 Dose: 650 mg Documented By: BHARAT Acetaminophen (Acetaminophen Supp 650 Mg Supp.Rect) 650 mg WI Q6H PRN PRN Reason: Pain, Mild (Pain Scale 1-3) Albuterol/Ipratropium (Albuterol/Iprat 2.5/0.5mg 3 Ml Ampul.Neb) 3 ml INHALE RQ4H WHILE AWAKE [facility] Last Admin: 08/07/23 11:10 Dose: 3 ml Documented By: LAWRENCE Albuterol/Ipratropium (Albuterol/Iprat 2.5/0.5mg 3 Ml Ampul.Neb) 3 ml INHALE Q2H PRN PRN Reason: Wheezing Atorvastatin Calcium (Atorvastatin Calcium 10 Mg Tablet) 10 mg PO DAILY [facility] Last Admin: 08/07/23 08:11 Dose: 10 mg Documented By: BHARAT Dexamethasone Sodium Phosphate (Dexamethasone Sod Phosphate 4 Mg/Ml Vial) 6 mg IVPUSH DAILY [facility] Last Admin: 08/07/23 08:12 Dose: 6 mg Documented By: BHARAT Escitalopram Oxalate (Escitalopram Oxalate 10 Mg Tablet) 10 mg PO DAILY [facility] Last Admin: 08/07/23 08:11 Dose: 10 mg Documented By: BHARAT Fluticasone/Umeclidinium/Vilanterol (Fluticasone/Umeclidinium/Vilanterol 200/62.5/25 Blst.W.Dev) 1 puff INHALE RDAILY [facility] Last Admin: 08/07/23 08:04 Dose: Not Given Documented By: LAWRENCE Non-Admin Reason: Patient Asleep Furosemide (Furosemide 40 Mg Tablet) 40 mg PO DAILY [facility]; Protocol Last Admin: 08/07/23 08:11 Dose: 40 mg Documented By: BHARAT Doxycycline Hyclate 100 mg/ (Sodium Chloride) 250 mls @ 166.67 mls/hr IV Q12H [facility] Last Admin: 08/07/23 08:06 Dose: 166.67 mls/hr Documented By: BHARAT Remdesivir 100 mg/ Sodium (Chloride) 230 mls @ 115 mls/hr IV Q24H [facility] Stop: 08/09/23 17:59 Last Infusion: 08/06/23 19:41 Dose: Infused Documented By: VEENA Ceftriaxone Sodium 1 gm/ (Sodium Chloride) 50 mls @ 100 mls/hr IV Q24H [facility] Last Infusion: 08/06/23 18:26 Dose: Infused Documented By: BHARAT Ipratropium [place] (Ipratropium [place] Adonis 0.06 % 15 Ml [place]) 2 spray NOSTRIL-B TID [facility] Last Admin: 08/07/23 08:11 Dose: Not Given Documented By: BHARTA Non-Admin Reason: Patient Refused Melatonin (Melatonin 3 Mg Tablet) 6 mg PO BEDTIME PRN PRN Reason: Insomnia Last Admin: 08/06/23 20:49 Dose: 6 mg Documented By: VEENA Ondansetron HCl (Ondansetron Hcl 4 Mg/2 Ml Vial) 4 mg IVPUSH Q8H PRN PRN Reason: Nausea and Vomiting Pantoprazole Sodium (Pantoprazole Sodium 40 Mg/10 Ml Vial) 40 mg IVPUSH BID@0630,1630 [facility] Last Admin: 08/07/23 06:29 Dose: 40 mg Documented By: KADY Phenazopyridine HCl (Phenazopyridine Hcl 200 Mg Tablet) 200 mg PO TIDWM [facility] Stop: 08/08/23 12:01 Last Admin: 08/07/23 08:11 Dose: 200 mg Documented By: BHARAT Ropinirole HCl (Ropinirole Hcl 2 Mg Tablet) 2 mg PO BEDTIME [facility] Last Admin: 08/06/23 20:49 Dose: 2 mg Documented By: VEENA Sodium Chloride (0.9 % Sodium Chloride Flush 3 Ml Syringe) 3 ml IVFLUSH QSHIFT [facility] Last Admin: 08/06/23 20:49 Dose: 3 ml Documented By: VEENA Zolpidem Tartrate (Zolpidem Tartrate 5 Mg Tablet) 5 mg PO BEDTIME PRN PRN Reason: Insomnia Last Admin: 08/07/23 00:03 Dose: 5 mg Documented By: VEENA Labs 08/07/23 07:26 08/06/23 07:14 Labs: Laboratory Results - last 24 hr 08/07/23 07:26 C-Reactive Protein < 0.04 Assessment and Plan (1) GI (gastrointestinal bleed): Status: Acute Plan d6 88yo M with COPD, chronic hypoxic resp failure on 2L home O2, HTN, PAD on ASA + rivaroxaban sent to ED from due to hypoxia and dyspnea found to be anemic with Hb 6.4, also worsening hypoxia COPD/CHF exacerbations was awaiting EGD/C-scope but then tested positive for Covid-19 Covid-19 positive - isolation, remdesivir 08/05-08/09/23, dexamethasone 08/05-08/14/23, monitor respiratory status and CRP acute blood loss anemia due to GI bleed - GI consulted [Dr Keys]; EGD + C-scope on hold due to Covid-19 - pre-procedure Cardiology + Pulmonology evaluations done - hold ASA + rivaroxaban; continue IV PPI - monitor H+H; transfused 2u pRBCs 08/02/23 with appropriate response - Hgb dropped 9=8.8 --> 7.9 overnight. No obvious source bleeding, hematuria resolving. NO melena/hematochezia - Repeat H/H @4pm. Transfuse if <7.0. Call GI if requiring transfusion acute/chronic hypoxic resp failure - weaned back to home O2 of 2L COPD exacerbation - continue IV dexamethasone, standing/prn ipratropium/albuterol, doxycycline 08/03-, Trelegy hematuria - Urology consulted, ASA + rivoraxaban on hold, not retaining urine - will treat empirically for UTI with ceftriaxone 08/06-, check UCx, give Pyridium acute HFpEF - TTE 08/05/23: - The left ventricular systolic function is hyperdynamic. The visually estimated ejection fraction is >70%. - Aortic valve calcification with possible mild stenosis. - No obvious valvular pathology seen on this study. Left Ventricle Normal left ventricular cavity size. There is mildly increased left ventricular wall thickness. The left ventricular systolic function is hyperdynamic. The visually estimated ejection fraction is >70%. There is no evidence of regional wall motion abnormalities. Evidence suggests grade I (mild) diastolic dysfunction. - appears euvolemic now, change to PO furosemide, Cardiology consulted HLD - statin GERD - PPI PAD - statin; hold ASA + rivaroxaban RLS - ropinirole mood disorder - escitalopram VTE ppx - SCDs dispo - STR recommended In my clinical judgment, the patient requires continued inpatient hospitalization for the following reasons: endoscopic evaluation of GI bleed, Covid-19 on IV remdesivir Time Spent With Patient Time: Total time managing care of this patient today ____ minutes. Quality Stroke Does the patient have a stroke diagnosis?: No VTE Prior VTE?: No VTE Risk Level:: Medical - moderate - high VTE Device Contraindication: N/A - Device Ordered VTE Drug Contraindication: Treatment Not Indicated
--- NOTE | 2023-08-07 13:18 | MHC.CM.PN ---
Addendum entered by Adamaris Calderon 08/07/23 15:13: This CM spoke with pt to discuss PT rec for home with [facility], pt agreeable and did not have a preference. Per pt request, this CM called and spoke with pts daughter Sharmin to discuss preference in agency. Sharmin also did not have preference in agency. Referral placed with [facility]. Original Note: EMR reviewed and per MD rounds, pt is not medically cleared for D/C with decreased H+H, and hematuria. CM will continue to follow.
[2023-08-07] MEDS: cefTRIAXone sodium 1 GM in 0.9 % Sodium Chloride 50 ML IV (15:29)
[2023-08-07 17:28] LABS: Hematocrit 30.3 % (42.0-52.0); Hemoglobin 9.1 g/dl (14.0-18.0)
[2023-08-07] MEDS: Remdesivir 100 MG in 0.9 % Sodium Chloride 230 ML 115 MG IV (17:49)
[2023-08-07] MEDS: rOPINIRole HCL 2 MG TABLET PO (22:28)
[2023-08-07] MEDS: Melatonin 3 MG TABLET 6 MG PO (23:37)
[2023-08-07] MEDS: 0.9 % Sodium Chloride Flush 3 ML SYRINGE IVFLUSH (23:39)
[2023-08-08] VITALS (7 sets, daily range): BP systolic 134–180; BP diastolic 58–70; PULSE 60–84; RESP 16–20; TEMP 36.6–37.4; O2SAT 90–100
[2023-08-08] MEDS: Pantoprazole Sodium 40 MG/10 ML VIAL IVPUSH (06:09)
[2023-08-08] MEDS: dexAMETHasone sod phosphate 4 MG/ML VIAL 6 MG IVPUSH (08:19)
[2023-08-08] MEDS: Escitalopram Oxalate 10 MG TABLET PO (08:20)
[2023-08-08] MEDS: Phenazopyridine HCL 200 MG TABLET PO ×2 (08:20→12:07)
[2023-08-08] MEDS: Doxycycline Hyclate 100 MG in 0.9 % Sodium Chloride 250 ML 166.67 MG IV (08:20)
[2023-08-08] MEDS: Atorvastatin Calcium 10 MG TABLET PO (08:20)
[2023-08-08] MEDS: Furosemide 40 MG TABLET PO (08:20)
[2023-08-08] MEDS: 0.9 % Sodium Chloride Flush 3 ML SYRINGE IVFLUSH (08:21)
[2023-08-08] MEDS: Albuterol/Iprat 2.5/0.5MG 3 ML AMPUL.NEB INHALE ×2 (08:41→11:59)
[2023-08-08] MEDS: Fluticasone/Umeclidinium/Vilanterol 200/62.5/25 BLST.W.DEV 1 PUFF INHALE (08:42)
--- NOTE | 2023-08-08 13:54 | PM.DS ---
DS: Providers Provider Date of Service: 08/08/23 Date of admission: 08/02/23 19:05 Date of discharge: 08/08/23 Primary care physician: Chico Bojorquez MD Admitting clinician: Jose Eduardo Albert Attending physician on admission: Ricardo Armstrong Consults: 08/02/23 19:18 Consult to Gastroenterology Routine Consulting Provider: Jeff Keys Reason for consultation: GI bleed 08/03/23 12:49 Consult to Cardiology Routine Consulting Provider: [facility] Reason for consultation: pre-EGD clearance requested by GI Consult to Pulmonology Routine Consulting Provider: [facility] [place] [facility] Reason for consultation: pre-EGD clearance requested by GI 08/03/23 14:52 Consult for Sitter Routine Reason for consultation: agitatione 08/05/23 14:50 Consult to Urology Routine Consulting Provider: [facility] Reason for consultation: gross haematuria Attending physician on discharge: Orestes Mcneal Discharging clinician: Yuli Johnston DS: Diagnosis Discharge Diagnosis (1) GI (gastrointestinal bleed): Status: Acute DS: Summary Hospital Course Hospital Course: HPI and admission by Demi Oneal: Pt is an 88-year-old male with a PMH significant for?COPD, chronic hypoxic respiratory failure on 2L home O2, HTN, PAD on Xarelto and aspirin, GERD and restless legs syndrome who presents to the ED from urgent care for evaluation of shortness of breath and increased hypoxia. Patient reports experienced increasing SOB for the past few days. Yesterday he felt especially poorly and attempted to see his PCP, but he was on vacation. SOB persisted this morning and patient decided to visit a walk-in clinic. Patient with chronic hypoxia on 2 L home O2, was noted to be satting in the low 80s at urgent care earlier today while speaking to a provider. Labs in the ED significant for H&H of 6.4/22.3. Patient reports increased fatigue and noticing both bright red blood in his stool and that his stool has been dark colored/black for the past 2-3 days. Patient is on both Xarelto and aspirin PAD. Denies any other recent or chronic NSAID use. Denies significant increase in chronic cough. No fever, chills, nausea, vomiting, diarrhea, abdominal pain. No chest pain/pressure, palpitations. In the ED patient was afebrile but tachypneic up 24, slightly hypertensive to 140/60, satting 89% on 2 L NC. Labs were significant for H&H of 6.4/22.3, lactic acid 2.7, BNP 237. Stool positive for occult blood. CXR showed mild diffuse increased interstitial markings possibly chronic, or related to bronchitis with edema less likely. Did not find any focal lung consolidation or pleural effusion. EKG demonstrated mild ST depressions in V4 and V5. Pt was treated with DuoNebs, Solu-Medrol, ceftriaxone. Pt will be admitted to the hospital for treatment and further evaluation of acute symptomatic blood loss anemia. Hospital course: 88-year-old male admitted to the hospital for COVID-19 with acute on chronic hypoxemic respiratory failure treated with IV remdesivir, IV dexamethasone. Patient was weaned to baseline 2 L supplemental O2. H/H was noted to decrease during admission with hemoglobin 6.9. The patient was transfused with 1 unit packed red blood cells. Stool occult blood was noted to be positive. Patient seen by Gastroenterology recommending endoscopy once COVID-19 cleared. He was also noted to have gross hematuria without clots. Did not require CBI but was seen by Urology. Urine culture was negative for bacterial infection but did show some yeast. Hematuria did resolve. Urology recommended outpatient follow-up for cystoscopy. H/H continue to improve with hemoglobin on day of discharge 9.1. He should follow up outpatient with Dr. Keys in Gastroenterology for possible endoscopy. Following blood transfusion, was noted to be slightly fluid overloaded and was treated with IV Lasix, transition to oral Lasix. Euvolemic on day of discharge. He was evaluated by Physical therapy who recommended short-term rehab but patient refused this. He will go home with [facility]. Advised to follow up with PCP in 1 week. Continue PO dexamethasone 6mg daily x 6 days. Continue holding xarelto until further evaluated by gastroenterology and urology. Resume aspirin. Repeat CBC and BMP in 1 week with [facility] Hospital course by problem: Covid-19 positive - isolation, remdesivir 08/05-08/09/23, dexamethasone 08/05-08/14/23, monitor respiratory status and CRP acute blood loss anemia due to GI bleed - GI consulted [Dr Keys]; EGD + C-scope on hold due to Covid-19 - pre-procedure Cardiology + Pulmonology evaluations done - hold ASA + rivaroxaban; continue IV PPI - monitor H+H; transfused 2u pRBCs 08/02/23 with appropriate response - Hgb dropped 9=8.8 --> 7.9 overnight. No obvious source bleeding, hematuria resolving. NO melena/hematochezia - Repeat H/H @4pm. Transfuse if <7.0. Call GI if requiring transfusion acute/chronic hypoxic resp failure - weaned back to home O2 of 2L COPD exacerbation - continue IV dexamethasone, standing/prn ipratropium/albuterol, completed, Trelegy hematuria - Urology consulted, ASA + rivoraxaban on hold, not retaining urine - treated empirically for UTI with ceftriaxone, check UCx-neg for bacteria, discontinue abx, give Pyridium -continue holding xarleto until seen by gi and urology acute HFpEF - TTE 08/05/23: - The left ventricular systolic function is hyperdynamic. The visually estimated ejection fraction is >70%. - Aortic valve calcification with possible mild stenosis. - No obvious valvular pathology seen on this study. Left Ventricle Normal left ventricular cavity size. There is mildly increased left ventricular wall thickness. The left ventricular systolic function is hyperdynamic. The visually estimated ejection fraction is >70%. There is no evidence of regional wall motion abnormalities. Evidence suggests grade I (mild) diastolic dysfunction. - appears euvolemic now, change to PO furosemide, Cardiology consulted HLD - statin GERD - PPI PAD - statin; hold rivaroxaban -resume asa RLS - ropinirole mood disorder - escitalopram VTE ppx - SCDs dispo - STR recommended btu refused. Home with PT Status at Discharge Functional status at discharge: independent ambulation Overall status at discharge: patient is progressing back to baseline Time Spent with Patient Time attestation: Total time managing care of this patient today ____ minutes. Discharge coordination time: Greater than 30 minutes Quality: Safe Use of Opioids Does Pt have an Active Cancer Diagnosis on the Problem List?: No Quality: Stroke Does the patient have a stroke diagnosis?: No Physical Exam Vital Signs: Vital Signs: Last Vital Signs Temp 99.3 F 08/08/23 12:00 Pulse 81 08/08/23 12:01 Resp 20 08/08/23 12:01 BP 134/58 L 08/08/23 12:00 Pulse Ox 90 L 08/08/23 12:00 O2 Del Method Nasal Cannula 08/08/23 12:00 O2 Flow Rate 2 08/08/23 12:00 Oxygen Flow Rate 3 08/02/23 16:57 BMI result Body Mass Index 24.9 DS: Data Data Completed and Pending Labs on day of discharge: Laboratory Results - last 24 hr 08/02/23 08/07/23 17:11 17:19 Hgb 9.1 L Hct 30.3 L Smear Path Review SEE NOTE Preliminary micro results at discharge 08/06/23 18:45 Urine Culture - Preliminary Urine clean catch - Urine alexandre top Yeast Discharge Plan Discharge Anticipated Discharge Date/Time: 08/08/23 14:01 Patient Disposition: Home Health Service Discharge Diagnosis: COVID-19, hypoxia, hematuria, symptomatic anemia Referrals: [facility] [Outside] - 3-5 Days (for visiting nursing and physical therapy. Someone from the agency will call you to schedule. ) Jc Quezada MD [Physician] - 1 Week Chico Bojorquez MD [Primary Care Provider] - 1 Week Jeff Keys MD [Physician] - 1 Week Discharge Medications: New dexamethasone 6 mg tablet 6 mg PO DAILY Qty: 5 0RF furosemide 20 mg tablet 20 mg PO DAILY Qty: 30 0RF Continued albuterol sulfate 2.5 mg /3 mL (0.083 %) solution for nebulization 2.5 mg inhalation Q4-6H PRN (Reason: shortness of breath or wheezing) Qty: 90 0RF ipratropium bromide 42 mcg (0.06 %) spray,non-aerosol 2 spray intranasal TID Xarelto 2.5 mg tablet 2.5 mg PO BID ropinirole 2 mg tablet 2 mg PO BEDTIME citalopram 20 mg tablet 20 mg PO DAILY omeprazole 20 mg capsule,delayed release(DR/EC) 20 mg PO DAILY atorvastatin 10 mg tablet 10 mg PO DAILY aspirin [Adult Low Dose Aspirin] 81 mg tablet,delayed release (DR/EC) 81 mg PO DAILY albuterol sulfate [ProAir HFA] 90 mcg/actuation HFA aerosol inhaler 2 puff inhalation Q4-6H PRN (Reason: shortness of breath or wheezing) 60 Days Qty: 6.7 2RF Trelegy Ellipta 200-62.5-25 mcg blister with device 1 inh inhalation DAILY Qty: 60 6RF Discharge Orders: Discharge Order (Routine); Ordered 08/08/23 Ordered By: Yuli Johnston Diet: Advance to usual diet Activity on Discharge: As tolerated Stand Alone Forms: Patient Portal Discharge page Other Ambulatory Orders: Basic Metabolic Panel Fasting (Routine) Timeframe: 1 Week Facility: [facility] - Location: Laboratory Ordered By: Yuli Johnston Complete Blood Count Auto Diff (Routine) Timeframe: 1 Week Facility: [facility] - Location: Laboratory Ordered By: Yuli Johnston Care Plan Goals: see below Health Concerns: COVID-19 with acute on chronic hypoxemic respiratory failure Hematuria GI bleed Acute blood loss anemia CHF exacerbation Plan of Treatment: COVID-19 with acute on chronic hypoxemic respiratory failure -treated with IV remdesivir and IV dexamethasone, weaned to baseline 2 L supplemental O2 -continue dexamethasone 6 mg daily times 5 days -complete isolation per CDC recommendations Acute blood loss anemia -likely secondary to hematuria, transfused 1 unit of packed red blood cells with improvement and blood counts -continue Mcgarry catheter on discharge until evaluated by Urology outpatient for cystoscopy -continue holding Xarelto until cleared by Gastroenterology and Urology GI bleed -no obvious GI bleeding but stool was positive for microscopic blood -question presence of microscopic bleed from GI tract -follow-up with Gastroenterology outpatient for possible colonoscopy/endoscopy -continue holding Xarelto until cleared by Urology and Gastroenterology -Continue omeprazole CHF exacerbation -following transfusion of blood, developed shortness of breath likely fluid overload -treated with 40 mg Lasix -echocardiogram confirmed diastolic congestive heart failure -continue Lasix 20 mg daily -repeat BMP in 1 week with [facility] Assessment: see above
[2023-08-08] MEDS: cefTRIAXone sodium 1 GM in 0.9 % Sodium Chloride 50 ML IV (14:10)
[2023-08-08] MEDS: Acetaminophen 325 MG TABLET 650 MG PO (14:10)
--- NOTE | 2023-08-08 14:48 | MHC.CM.PN ---
EMR reviewed. Per round pt is medically cleared for dc, plan is return home with [facility]. Will dc with cornejo in place and follow up with urology outpt, [facility] aware. Daughter to transport at 3:30pm.
--- NOTE | 2023-08-08 14:55 | MHC.CM.PN ---
EMR reviewed. Per rounds pt is medically cleared for dc, plan is return home with [facility]. Daughter to transport at 3:30pm.
--- NOTE | 2023-08-08 14:59 | P.F2F_ITS ---
Service Date Service Date: 08/08/23 Encounter Date of encounter: 08/08/23 Reasons for Services Signs and symptoms assessed: weakness, volume overload, hyoxia Reason for intermediate: medication management Reason for physical therapy: home safety and mobility, therapeutic exercises and gait/transfer training Reason for occupational therapy: home safety and mobility Homebound: Leaving the home is medically contraindicated at this time without the asist of a device and/or another person due th the listed conditions above and below. Reason homebound: unsteady gait / fall risk, shortness of breath with minimal effort, poor balance / fall risk, shortness of breath at rest and weakness related to hospital stay Certification: Based on the above findings, I certify that this patient is confined to the home and needs intermittent intermediate care, physical therapy and/or speech therapy, or continues to need occupational therapy. The patient is under my care, and I have initiated the establishment of the plan of care. The patient will be followed by a physician who will periodically review the plan of care. Time Spent With Patient Time: Total time managing care of this patient today ____ minutes.
== END 2023-08-08 15:58 | disposition home health service (06) | DRG 177 ==
LOC: HO.ED 17:19 → HO.EDOVER 19:10 → HO.IMC 22:07
PROVIDERS: Family Medicine; Admitting Provider Student in an Organized Health Care Education/Training Program; Emergency Provider Internal Medicine; PCP Internal Medicine; Visit Provider Physician Assistant
DX: U07.1 COVID-19 (principal); I50.33 Acute on chronic diastolic (congestive) heart failure; J96.21 Acute and chronic respiratory failure with hypoxia; D62 Acute posthemorrhagic anemia; J44.1 Chronic obstructive pulmonary disease with (acute) exacerbation; N39.0 Urinary tract infection, site not specified; K92.1 Melena; I11.0 Hypertensive heart disease with heart failure; F39 Unspecified mood [affective] disorder; R31.0 Gross hematuria; I73.9 Peripheral vascular disease, unspecified; G25.81 Restless legs syndrome; Z99.81 Dependence on supplemental oxygen; Z87.891 Personal history of nicotine dependence; Z79.01 Long term (current) use of anticoagulants; Z79.51 Long term (current) use of inhaled steroids; Z79.82 Long term (current) use of aspirin; Z79.899 Other long term (current) drug therapy
CPT/HCPCS: 0241U; 36415; 36600; 71045; 76775; 80048; 80053; 82272; 82803; 83605; 83735; 83880; 84145; 84484; 85014; 85018; 85025; 85027; 85610; 85730; 86140; 86850; 86900; 86901; 86923; 87040; 87086; 87088; 92950; 93005; 93306; 94640; 97116; 97161; 99285; C1758; J0248; J0696; J1100; J1940; J2270; J2359; J2920; J2930; P9016; Q9957

== ENCOUNTER 2023-08-02 19:05 | Outpatient (BNV) | payer MEDICARE, SELFPAY | END 2023-08-05 07:00 | PROVIDERS: Admitting Provider Student in an Organized Health Care Education/Training Program; Emergency Provider Internal Medicine; PCP Internal Medicine; Visit Provider Internal Medicine | DX: I35.8 Other nonrheumatic aortic valve disorders (principal) | CPT/HCPCS: 93306 ==

== ENCOUNTER → 2023-08-02 19:05 | Outpatient (BNV) | payer MEDICARE, SELFPAY | PROVIDERS: Admitting Provider Student in an Organized Health Care Education/Training Program; Emergency Provider Internal Medicine; PCP Internal Medicine; Visit Provider Student in an Organized Health Care Education/Training Program | DX: K92.2 Gastrointestinal hemorrhage, unspecified (principal) | CPT/HCPCS: 99223; 99232; 99239; G0180 ==

== ENCOUNTER → 2023-08-02 19:05 | Outpatient (BNV) | payer MEDICARE, SELFPAY | PROVIDERS: Admitting Provider Student in an Organized Health Care Education/Training Program; Emergency Provider Internal Medicine; PCP Internal Medicine; Visit Provider Urology | DX: N39.42 Incontinence without sensory awareness (principal); R31.9 Hematuria, unspecified | CPT/HCPCS: 99222; 99232 ==

== ENCOUNTER → 2023-08-02 19:05 | Outpatient (BNV) | payer MEDICARE, SELFPAY | PROVIDERS: Admitting Provider Student in an Organized Health Care Education/Training Program; Emergency Provider Internal Medicine; PCP Internal Medicine; Visit Provider Internal Medicine Cardiovascular Disease | DX: Z01.810 Encounter for preprocedural cardiovascular examination (principal); I10 Essential (primary) hypertension; I50.9 Heart failure, unspecified | CPT/HCPCS: 99223 ==

== ENCOUNTER → 2023-08-02 19:05 | Outpatient (BNV) | payer MEDICARE, SELFPAY | PROVIDERS: Admitting Provider Student in an Organized Health Care Education/Training Program; Emergency Provider Internal Medicine; PCP Internal Medicine; Visit Provider Internal Medicine Pulmonary Disease | DX: J44.9 Chronic obstructive pulmonary disease, unspecified (principal); Z99.81 Dependence on supplemental oxygen; Z01.811 Encounter for preprocedural respiratory examination | CPT/HCPCS: 99222 ==

== ENCOUNTER → 2023-08-02 19:05 | Outpatient (BNV) | payer MEDICARE, SELFPAY | PROVIDERS: Admitting Provider Student in an Organized Health Care Education/Training Program; Emergency Provider Internal Medicine; PCP Internal Medicine; Visit Provider Internal Medicine Gastroenterology | DX: K92.2 Gastrointestinal hemorrhage, unspecified (principal); D64.9 Anemia, unspecified | CPT/HCPCS: 99223 ==

== ENCOUNTER 2023-08-10 10:05 | Emergency (ER) | payer MEDICARE, SELFPAY ==
[2023-08-10 10:06] VITALS: BP 140/57; PULSE 75; RESP 18; TEMP 36.6; O2SAT 96; BMI 23.4
--- NOTE | 2023-08-10 10:30 | ED_ITS ---
HPI - General Adult General Chief complaint: Recheck/Abnormal Lab/Rx Stated complaint: wants covid testing? Time Seen by Provider: 08/10/23 10:29 Source: patient, RN notes reviewed and old records reviewed Mode of arrival: ambulatory History of Present Illness HPI narrative: 88-year-old male with past medical history of COPD, chronic hypoxic respiratory failure on 2 L home O2 baseline, HTN, PAD on Xarelto and aspirin, GERD, restless leg syndrome, recently discharged from our facility on 08/08 for GI bleed/anemia & hypoxic respiratory failure from COVID 19, presenting to the ED requesting COVID-19 testing/clarification if he is still contagious was COVID-19. Patient tested positive for COVID-19 on 08/05. Denies any symptoms at present including fever, chills, SOB/CP, abdominal pain, hematochezia/melena Onset (ago): day(s) Related Data Home Medications Medication Instructions Recorded Confirmed aspirin 81 mg tablet,delayed 81 mg PO DAILY 02/22/21 08/02/23 release (Adult Low Dose Aspirin) atorvastatin 10 mg tablet 10 mg PO DAILY 02/22/21 08/02/23 citalopram 20 mg tablet 20 mg PO DAILY 02/22/21 08/02/23 omeprazole 20 mg capsule,delayed 20 mg PO DAILY 02/22/21 08/02/23 release ipratropium bromide 42 mcg (0.06 2 spray intranasal TID 08/02/23 08/02/23 %) nasal spray rivaroxaban 2.5 mg tablet (Xarelto) 2.5 mg PO BID 08/02/23 08/02/23 ropinirole 2 mg tablet 2 mg PO BEDTIME 08/02/23 08/02/23 Previous Rx's Medication Instructions Recorded albuterol sulfate 90 mcg/actuation 2 puff inhalation Q4-6H PRN 06/12/22 aerosol inhaler (ProAir HFA) shortness of breath or wheezing 60 days #6.7 grams fluticasone fur. 200 mcg-umeclid 1 inh inhalation DAILY #60 ea 05/08/23 62.5 mcg-vilant 25 mcg inhalat.powder (Trelegy Ellipta) albuterol sulfate 2.5 mg/3 mL 2.5 mg (3 mL) inhalation Q4-6H PRN 05/28/23 (0.083 %) solution for nebulization shortness of breath or wheezing #90 mL dexamethasone 6 mg tablet 6 mg PO DAILY #5 tabs 08/08/23 furosemide 20 mg tablet 20 mg PO DAILY #30 tabs 08/08/23 Allergies Allergy/AdvReac Type Severity Reaction Status Date / Time No Known Allergies Allergy Unknown NOT Verified 08/10/23 10:12 APPLICABLE Review of Systems Review of Systems: Constitutional: No Fever, No Chills ENT/Mouth: No Ear Pain, No Nasal Congestion, No sore throat, No Rhinorrhea, No Swallowing Difficulty Cardiovascular: No Chest Pain, No SOB Respiratory: No Cough, No Sputum, No Wheezing Gastrointestinal: No Nausea, No Vomiting, No Diarrhea, No Constipation, No Abdominal pain Genitourinary: No Dysuria, No Urinary Frequency, No Hematuria, No hematochezia/melena, No Urgency, No Flank Pain Musculoskeletal: No joint pain, No Myalgias, No Joint Swelling Skin: No Skin Lesions, No rash Neuro: No Weakness Yes all other systems are reviewed and are negative Constitutional: Constitutional: Reports as per [facility] Past Medical History Attestation statement: The following information was validated with the patient. Source: old records reviewed Medical History HTN (hypertension) Bilateral carotid artery disease Surgical History Hx of prostatectomy Hx of hernia repair Hx of rotator cuff surgery Family History Family History Father CVD (cardiovascular disease) Mother No problems noted. Social History Social History Household Members: None Housing: House Do you presently have visiting nurse or other home services: Yes Alcohol intake: former Patient Tobacco Use Status: Former Tobacco user Cigarette Packs Per Day: 2 Cigarettes Per Day: 40.0 service: No Physical Exam ED Vital Signs: Vital Signs - 24 hr 08/10/23 10:06 Temperature 97.9 F Pulse Rate 75 Respiratory Rate 18 Blood Pressure 140/57 H Pulse Oximetry 96 Oxygen Delivery Method Nasal Cannula BMI result Body Mass Index 23.4 Const General: cooperative, healthy appearing and no acute distress Orientation/consciousness: patient oriented x3 Limitations: no limitations HENMT Head: Yes normal to inspection and Yes atraumatic Ears: hearing grossly normal bilaterally General nose exam: Normal external nose present Face and sinus: Yes normal facial exam Eyes General: appearance normal, both eyes and all related structures EOM: EOMs intact bilaterally Neck Neck: Yes normal visual inspection and Yes no meningeal signs Resp Effort & Inspection: normal respiratory effort, no respiratory distress and no stridor Auscultation: clear to auscultation bilaterally, no crackles, no rales, no rhonchi and no wheezes Cardio Rate: regular rate Heart sounds: S1 normal heart sound present and S2 normal heart sound present Skin Rashes: no rashes Wounds: no wounds Neuro General: patient oriented x3, tone normal and no meningeal signs Cranial nerves: Yes CN's II-XII intact bilaterally Gait exam (Neuro): Normal gait present Extrem General: Yes normal to inspection Medical Decision Making Medical Decision Making MDM Narrative: 88-year-old male with past medical history of COPD, chronic hypoxic respiratory failure on 2 L home O2 baseline, HTN, PAD on Xarelto and aspirin, GERD, restless leg syndrome, recently discharged from our facility on 08/08 for GI bleed/anemia & hypoxic respiratory failure from COVID 19, presenting to the ED requesting COVID-19 testing/clarification if he is still contagious was COVID-19. On exam vital signs stable, satting 96% on baseline O2, NAD, nontoxic appearing, ambulating with steady gait, lungs CTA. Patient asymptomatic at present. Patient educated on current COVID-19 guidelines/precautions. Low suspicion for ACS/PE or CHF or recurrent GI bleed. COVID-19 testing performed in triage Results discussed with patient including worrisome signs and symptoms and strict return precautions, and when to return to the emergency department. They verbalized understanding and feel safe for discharge at this time. Lab Data [facility] Lab Attestation statement: I reviewed the patient's lab results. External Record Review External record reviewed: Inpatient record, Office record, Outpatient record, Prior outpatient labs, Prior outpatient radiology, Primary care record and Outside ED record Tests considered The following testing was considered but not selected: As above Chronic Conditions Patient?s care impacted by: Hypertension and Other (COPD, GI bleed) Discharge Plan Discharge Clinical Impression: COVID-19 Patient Disposition: Home, Self-Care Instructions: COVID-19 (Coronavirus Disease 2019) (ED) Additional Instructions: You initially tested positive for COVID-19 on 08/05 At this time you will be okay for discharge. Please self isolate for 5 days. Do not expose yourself to others. You may not go to work or school. Please continue to follow cold instructions and wash your hands frequently. You may take Tylenol / Motrin as directed on the bottle for pain or fever. If you have constant or persistent shortness of breath, fever unresolved with medications, chest pain, or your unable to eat or drink please return to the ED CDC Guidelines for home isolation: - Stay away from others - WEAR A MASK if you are sick AND STAY HOME - Cover your mouth and nose with a tissue when you cough or sneeze. Dispose of tissues in a lined trash can and wash your hands immediately with soap and water for at least 20 seconds. If soap and water are not available, clean hands with alcohol-based hand billing services manager that contains at least 60% alcohol. - Clean your hands often with soap and water for at least 20 seconds - Avoid touching your eyes, nose and mouth with unwashed hands - Do not share dishes, drinking glasses, cups, eating utensils, towels, or bedding with other people in your home. After using these items, wash them thoroughly with soap and water or put in the news clerk. - Clean high-touch surfaces in your isolation area ( sick room and bathroom) every day; let a caregiver clean and disinfect high-touch surfaces in other areas of the home. Clean the area or item with soap and water or another detergent if it is dirty. Then, use a household disinfectant. - Limit contact with pets and animals: If you must care for a pet, wash your hands before and after interacting with them) Prescriptions: No Action albuterol sulfate 2.5 mg /3 mL (0.083 %) solution for nebulization 2.5 mg inhalation Q4-6H PRN (Reason: shortness of breath or wheezing) Qty: 90 0RF ipratropium bromide 42 mcg (0.06 %) spray,non-aerosol 2 spray intranasal TID dexamethasone 6 mg tablet 6 mg PO DAILY Qty: 5 0RF furosemide 20 mg tablet 20 mg PO DAILY Qty: 30 0RF Xarelto 2.5 mg tablet 2.5 mg PO BID ropinirole 2 mg tablet 2 mg PO BEDTIME citalopram 20 mg tablet 20 mg PO DAILY omeprazole 20 mg capsule,delayed release(DR/EC) 20 mg PO DAILY atorvastatin 10 mg tablet 10 mg PO DAILY aspirin [Adult Low Dose Aspirin] 81 mg tablet,delayed release (DR/EC) 81 mg PO DAILY albuterol sulfate [ProAir HFA] 90 mcg/actuation HFA aerosol inhaler 2 puff inhalation Q4-6H PRN (Reason: shortness of breath or wheezing) 60 Days Qty: 6.7 2RF Trelegy Ellipta 200-62.5-25 mcg blister with device 1 inh inhalation DAILY Qty: 60 6RF
[2023-08-10 10:52] LABS: COVID-19 Test Negative (Negative); IDNOW Serial# BCCEAD1C
== END 2023-08-10 10:55 | disposition home or self-care (01) ==
PROVIDERS: Emergency Provider Internal Medicine; PCP Internal Medicine
DX: U07.1 COVID-19 (principal)
CPT/HCPCS: 87635; 99283

== ENCOUNTER 2023-09-03 15:41 | Outpatient (REF) | payer MEDICARE, SELFPAY ==
[2023-09-03 15:44] LABS: MANUAL DIFF FLAG NO
[2023-09-03 15:47] LABS: Basophils Absolute Auto 0.1 X10*3/uL (0.0-0.2); Basophils Percent Auto 0.5 % (0-2); Eosinophils Absolute Auto 0.6 X10*3/uL (0.0-0.4); Eosinophils Percent Auto 6.1 % (0-4); Hematocrit 30.8 % (42.0-52.0); Imm Gran Abs Auto 0.04 X10*3/uL (0.00-0.03); Imm Gran Pct Auto 0.4 % (0.0-0.4); Lymphocytes Percent Auto 10.4 % (20-40); Mean Corpuscular HGB Conc 29.2 g/dl (31.0-36.0); Mean Corpuscular Hemoglobin 22.2 pg (27.0-33.0); Mean Corpuscular Volume 75.9 fL (80.0-98.0); Mean Platelet Volume 10.8 fL (9.4-12.4); Monocytes Absolute Auto 0.8 X10*3/uL (0.1-1.2); Monocytes Percent Auto 8.2 % (2-11); Neutrophils Absolute Auto 6.9 x10*3/uL (2.0-8.3); Neutrophils Percent Auto 74.4 % (45-73); Platelet Count 301 X10*3/uL (160-400); Red Blood Count 4.06 X10*6/uL (4.60-5.80); Red Cell Distribution Width 21.3 % (11.0-16.0); White Blood Count 9.2 X10*3/uL (4.8-10.8)
[2023-09-03 16:40] LABS: Alanine Aminotransferase 14 U/L (0-40); Albumin Level 3.8 g/dL (3.5-5.0); Alkaline Phosphatase 93 U/L (39-117); Anion Gap 12 (12-20); Aspartate Amino Transferase 22 U/L (5-37); Bilirubin Total 0.3 mg/dL (0.0-1.0); Blood Urea Nitrogen 15 mg/dL (9-16); Carbon Dioxide 26 mmol/L (22-29); Chloride 106 mmol/L (96-108); Estimated Glomerular Filt Rate 42; Glucose Fasting 133 mg/dL (60-99); Potassium 4.1 mmol/L (3.3-5.1); Sodium 140 mmol/L (135-145); Total Protein 6.4 g/dL (6.5-8.0)
== END 2023-09-03 15:42 | disposition home or self-care (01) ==
LOC: HO.LNP 15:41
PROVIDERS: Visit Provider Internal Medicine
DX: K92.2 Gastrointestinal hemorrhage, unspecified (principal)
CPT/HCPCS: 80053; 85025

== ENCOUNTER 2023-09-13 20:11 | Emergency (ER) | payer MEDICARE, SELFPAY ==
--- NOTE | ~2023-09-13 | CT_ITS ---
EXAMINATION: CT ABDOMEN AND PELVIS WITHOUT CONTRAST CLINICAL INFORMATION: Pain. COMPARISON: 01/16/2023. TECHNIQUE: Multidetector volumetric imaging was performed from the superior aspect of the liver through the pubic symphysis. Sagittal and coronal reformatted images were obtained on the technologist's workstation. This CT examination was performed using dose optimization techniques as appropriate, variously including the following: *Automated exposure control *Adjustment of mA and/or kV according to patient size (this includes techniques or standardized protocols for targeted exams where dose is matched to indication/reason for exam; i.e. extremities or head) *Use of iterative reconstruction technique DLP: 398 mGy-cm FINDINGS: LUNG BASES: There is interstitial coarsening/scarring at the lung bases. LIVER, GALLBLADDER, AND BILIARY TREE: There is a nonspecific subcentimeter hypodensity left lobe of the liver similar to previous. There is no intrahepatic biliary duct dilatation. The gallbladder is unremarkable with no evidence of radiopaque gallstones, gallbladder wall thickening, or obvious pericholecystic inflammatory changes. PANCREAS: Unremarkable. SPLEEN: Unremarkable. ADRENAL GLANDS: Unremarkable. KIDNEYS AND URETERS: The kidneys are normal in size, shape, and attenuation. Right renal vascular calcifications are noted. There is no hydronephrosis. BLADDER: Unremarkable. GASTROINTESTINAL TRACT: There are diverticula of the sigmoid colon without diverticulitis. The appendix is visualized and is within normal limits. ABDOMINAL WALL: There are small umbilical and supraumbilical hernias containing fat. LYMPH NODES: Normal. VASCULAR: Unremarkable. PELVIC VISCERA: Unremarkable. OSSEOUS STRUCTURES: There is diffuse thoracolumbar disc degenerative change. CT/CT abdomen pelvis wo IV con IMPRESSION: No acute intra-abdominal process. Fleischner guidelines were followed.
[2023-09-13 20:37] VITALS: BP 182/56; PULSE 76; RESP 16; TEMP 36.7; O2SAT 92; BMI 12.4
--- NOTE | 2023-09-13 20:42 | ED.GENADULT ---
HPI - General Adult General Chief complaint: Abdominal Pain Stated complaint: abdominal pain, asking to be weighed Time Seen by Provider: 09/13/23 21:14 Source: patient Mode of arrival: ambulatory Limitations: no limitations History of Present Illness HPI narrative: 88 years old with history of COPD , chronic hypoxic respiratory failure on 2 L home O2, hypertension, peripheral artery disease Xarelto aspirin, restless leg syndrome recently admitted and discharged on 08/08 for acute hypoxia and COVID-19 back today as he had diffuse mid abdominal pain started yesterday no nausea / vomiting no diarrhea lasting for few minutes pain improved after arrival no urinary complaints Related Data Home Medications Medication Instructions Recorded Confirmed aspirin 81 mg tablet,delayed 81 mg PO DAILY 02/22/21 08/02/23 release (Adult Low Dose Aspirin) atorvastatin 10 mg tablet 10 mg PO DAILY 02/22/21 08/02/23 citalopram 20 mg tablet 20 mg PO DAILY 02/22/21 08/02/23 omeprazole 20 mg capsule,delayed 20 mg PO DAILY 02/22/21 08/02/23 release ipratropium bromide 42 mcg (0.06 2 spray intranasal TID 08/02/23 08/02/23 %) nasal spray rivaroxaban 2.5 mg tablet (Xarelto) 2.5 mg PO BID 08/02/23 08/02/23 ropinirole 2 mg tablet 2 mg PO BEDTIME 08/02/23 08/02/23 Previous Rx's Medication Instructions Recorded albuterol sulfate 90 mcg/actuation 2 puff inhalation Q4-6H PRN 06/12/22 aerosol inhaler (ProAir HFA) shortness of breath or wheezing 60 days #6.7 grams fluticasone fur. 200 mcg-umeclid 1 inh inhalation DAILY #60 ea 05/08/23 62.5 mcg-vilant 25 mcg inhalat.powder (Trelegy Ellipta) albuterol sulfate 2.5 mg/3 mL 2.5 mg (3 mL) inhalation Q4-6H PRN 05/28/23 (0.083 %) solution for nebulization shortness of breath or wheezing #90 mL dexamethasone 6 mg tablet 6 mg PO DAILY #5 tabs 08/08/23 furosemide 20 mg tablet 20 mg PO DAILY #30 tabs 08/08/23 Allergies Allergy/AdvReac Type Severity Reaction Status Date / Time No Known Allergies Allergy Unknown NOT Verified 08/10/23 10:12 APPLICABLE [facility] Past Medical History Medical History HTN (hypertension) Bilateral carotid artery disease Surgical History Hx of prostatectomy Hx of hernia repair Hx of rotator cuff surgery Family History Family History Father CVD (cardiovascular disease) Mother No problems noted. Social History Household Members: None Housing: House Do you presently have visiting nurse or other home services: Yes Alcohol intake: former Patient Tobacco Use Status: Former Tobacco user Cigarette Packs Per Day: 2 Cigarettes Per Day: 40.0 Use of substances other than those prescribed or required for medical reasons: No Advance Directives: No Advance Directives Information Provided: No service: No Physical Exam ED Vital Signs: Vital Signs - 24 hr 09/13/23 20:37 09/13/23 21:11 09/13/23 23:46 Temperature 98.0 F 97.6 F 98.0 F Pulse Rate 76 69 76 Respiratory Rate 16 16 14 Blood Pressure 182/56 H 177/69 H 146/55 H Pulse Oximetry 92 96 97 Oxygen Delivery Method Nasal Cannula Nasal Cannula Nasal Cannula Oxygen Flow Rate 2 3 BMI result Body Mass Index 12.4 Appearance: Alert. Oriented X3. No acute distress. Eyes: PERRLA, no pallor or icterus ENT: Pharynx normal. Oral Mucosa moist Neck: Normal inspection. Neck supple. CVS: Normal heart rate and rhythm. Pulses normal. Respiratory: No respiratory distress. Equal air entry bilateral, no wheezing/rales/rhonchi Abdomen: Soft and nontender. Bowel sounds are present, no mass palpable, no CVA tenderness Skin: Skin warm and dry. Normal skin color. Normal skin turgor. Extremities: No lower extremity edema. No calf tenderness Neuro: Oriented X 3. No motor deficit. Course Course Course Narrative: This is a rapid medical exam: Additional HPI, ROS, PE not included below will be deferred to primary provider. Patient is an 88-year-old male presenting to the emergency department with complaint of abdominal pain which began last night. Patient intermittently rubbing abdomen and stating that his hand are just being drawn to his abdomen. Denies nausea, vomiting, diarrhea, constipation. Denies fevers. Denies urinary symptoms. Denies back or flank pain. States his abdomen is itchy. Plan: EKG, labs, UA Medical Decision Making Medical Decision Making [facility] Narrative: Patient nonspecific abdominal pain CT scan negative for acute patient feeling much better after arriving to the ER likely patient has nonspecific bowels pain Differential Diagnosis Differential Diagnoses: The differential diagnosis associated with the presentation includes Pancreatitis/small-bowel obstructions/diverticulitis Lab Data [facility] Lab Attestation statement: I reviewed the patient's lab results. 09/13/23 20:56 09/13/23 20:56 Labs: Lab Results 09/13/23 09/13/23 Range/Units 20:56 21:20 WBC 12.3 H (4.8-10.8) X10*3/uL RBC 4.17 L (4.60-5.80) X10*6/uL Hgb 9.1 L (14.0-18.0) g/dl Hct 32.1 L (42.0-52.0) % MCV 77.0 L (80.0-98.0) fL MCH 21.8 L (27.0-33.0) pg MCHC 28.3 L (31.0-36.0) g/dl RDW 20.6 H (11.0-16.0) % Plt Count 354 (160-400) X10*3/uL MPV 10.5 (9.4-12.4) fL Immature Gran % (Auto) 0.5 H (0.0-0.4) % Neut % (Auto) 76.6 H (45-73) % Lymph % (Auto) 11.5 L (20-40) % [place] % (Auto) 6.9 (2-11) % Eos % (Auto) 3.6 (0-4) % Baso % (Auto) 0.9 (0-2) % Lymph # (Auto) 1.4 (1.2-4.9) X10*3/uL [place] # (Auto) 0.8 (0.1-1.2) X10*3/uL Eos # (Auto) 0.4 (0.0-0.4) X10*3/uL Baso # (Auto) 0.1 (0.0-0.2) X10*3/uL Abs Immat Gran (auto) 0.06 H (0.00-0.03) X10*3/uL Absolute Neuts (auto) 9.4 H (2.0-8.3) x10*3/uL Absolute Nucleated RBC 0.000 (0.0-0.012) X10*3/uL Nucleated RBC % (auto) 0.0 (0.0-0.2) /100WBC PT 13.6 H (11.1-13.3) SEC INR 1.1 (0.9-1.1) Sodium 143 (135-145) mmol/L Potassium 3.9 (3.3-5.1) mmol/L Chloride 109 H (96-108) mmol/L Carbon Dioxide 24 (22-29) mmol/L Anion Gap 14 (12-20) BUN 17 H (9-16) mg/dL Creatinine 1.67 H (0.5-1.4) mg/dL Estim Creat Clear Calc 14.3 Estimated GFR 39 Random Glucose 125 H (60-115) mg/dL Calcium 9.0 (8.4-10.2) mg/dL Total Bilirubin 0.3 (0.0-1.0) mg/dL AST 23 (5-37) U/L ALT 15 (0-40) U/L Alkaline Phosphatase 78 (39-117) U/L Troponin I High Sens 10.3 D (<3.5-35.0) ng/L Total Protein 6.7 (6.5-8.0) g/dL Albumin 4.0 (3.5-5.0) g/dL Urine Color Yellow Urine Appearance Clear Urine pH 6.0 (5.0-9.0) Ur Specific [place] 1.020 (1.005-1.025) Urine Protein 30 (1+) H (Neg-Trace) mg/dL Urine Glucose (UA) Negative (Negative) mg/dL Urine Ketones Trace (Negative) mg/dL Urine Blood Negative (Negative) Urine Nitrite Negative (Negative) Ur Leukocyte Esterase Negative (Negative) Urine RBC 0-2 (0-2) /HPF Urine WBC 0-5 (0-5) /HPF Ur Squamous Epith Cells 0-2 (0-2) /HPF Urine Bacteria None Seen (None Seen) Hyaline Casts 0-2 (0-2) /LPF Discharge Plan Discharge Clinical Impression: Abdominal pain Patient Disposition: Home, Self-Care Instructions: Abdominal Pain (ED) Additional Instructions: Your workup in the emergency room today was reassuring. This includes your blood work, CT scan of the abdomen pelvis. All specific cause of her pain was found And may have been related to gas pains or heartburn Follow-up with your primary doctor Prescriptions: No Action albuterol sulfate 2.5 mg /3 mL (0.083 %) solution for nebulization 2.5 mg inhalation Q4-6H PRN (Reason: shortness of breath or wheezing) Qty: 90 0RF ipratropium bromide 42 mcg (0.06 %) spray,non-aerosol 2 spray intranasal TID dexamethasone 6 mg tablet 6 mg PO DAILY Qty: 5 0RF furosemide 20 mg tablet 20 mg PO DAILY Qty: 30 0RF Xarelto 2.5 mg tablet 2.5 mg PO BID ropinirole 2 mg tablet 2 mg PO BEDTIME citalopram 20 mg tablet 20 mg PO DAILY omeprazole 20 mg capsule,delayed release(DR/EC) 20 mg PO DAILY atorvastatin 10 mg tablet 10 mg PO DAILY aspirin [Adult Low Dose Aspirin] 81 mg tablet,delayed release (DR/EC) 81 mg PO DAILY albuterol sulfate [ProAir HFA] 90 mcg/actuation HFA aerosol inhaler 2 puff inhalation Q4-6H PRN (Reason: shortness of breath or wheezing) 60 Days Qty: 6.7 2RF Trelegy Ellipta 200-62.5-25 mcg blister with device 1 inh inhalation DAILY Qty: 60 6RF Interventions: ED Discharge Assessment Last Done: 09/14/23 00:01 Discharge Date/Time: 09/14/23 00:02
--- NOTE | 2023-09-13 20:43 | ECG_ITS ---
Test Reason : DYSPNEA Blood Pressure : / mmHG Vent. Rate : 070 BPM Atrial Rate : 070 BPM P-R Int : 222 ms QRS Dur : 100 ms QT Int : 448 ms P-R-T Axes : 057 049 066 degrees QTc Int : 483 ms Sinus rhythm with 1st degree A-V block Prolonged QT Abnormal ECG When compared with ECG of 03-AUG-2023 07:29, No significant change was found Referred By: Adamaris Love Electronically Signed By:BESSIE HURD MD
[2023-09-13 21:00] LABS: MANUAL DIFF FLAG NO
[2023-09-13 21:01] LABS: Basophils Absolute Auto 0.1 X10*3/uL (0.0-0.2); Basophils Percent Auto 0.9 % (0-2); Eosinophils Absolute Auto 0.4 X10*3/uL (0.0-0.4); Eosinophils Percent Auto 3.6 % (0-4); Hematocrit 32.1 % (42.0-52.0); Hemoglobin 9.1 g/dl (14.0-18.0); Imm Gran Abs Auto 0.06 X10*3/uL (0.00-0.03); Imm Gran Pct Auto 0.5 % (0.0-0.4); Lymphocytes Absolute Auto 1.4 X10*3/uL (1.2-4.9); Lymphocytes Percent Auto 11.5 % (20-40); Mean Corpuscular HGB Conc 28.3 g/dl (31.0-36.0); Mean Corpuscular Hemoglobin 21.8 pg (27.0-33.0); Mean Platelet Volume 10.5 fL (9.4-12.4); Monocytes Absolute Auto 0.8 X10*3/uL (0.1-1.2); Monocytes Percent Auto 6.9 % (2-11); Neutrophils Absolute Auto 9.4 x10*3/uL (2.0-8.3); Neutrophils Percent Auto 76.6 % (45-73); Platelet Count 354 X10*3/uL (160-400); Red Blood Count 4.17 X10*6/uL (4.60-5.80); Red Cell Distribution Width 20.6 % (11.0-16.0); White Blood Count 12.3 X10*3/uL (4.8-10.8)
[2023-09-13 21:10] LABS: INTERNATIONAL NORM RATIO 1.1 (0.9-1.1); Prothrombin Time 13.6 SEC (11.1-13.3)
[2023-09-13 21:11] VITALS: BP 177/69; PULSE 69; RESP 16; TEMP 36.4; O2SAT 96
[2023-09-13 21:19] LABS: Alanine Aminotransferase 15 U/L (0-40); Alkaline Phosphatase 78 U/L (39-117); Anion Gap 14 (12-20); Aspartate Amino Transferase 23 U/L (5-37); Bilirubin Total 0.3 mg/dL (0.0-1.0); Blood Urea Nitrogen 17 mg/dL (9-16); Carbon Dioxide 24 mmol/L (22-29); Chloride 109 mmol/L (96-108); Creatinine Clr Calc Pharmacy 14.3; Estimated Glomerular Filt Rate 39; Glucose Random 125 mg/dL (60-115); Potassium 3.9 mmol/L (3.3-5.1); Sodium 143 mmol/L (135-145); Total Protein 6.7 g/dL (6.5-8.0)
[2023-09-13 21:26] LABS: Troponin-I High Sensitivity 10.3 ng/L (<3.5-35.0)
[2023-09-13 21:27] LABS: Appearance Urine Clear; Color Urine Yellow; Glucose Urine UA Negative (Negative); Leukocyte Esterase Urine Negative (Negative); Nitrite Urine Negative (Negative); UMIC TRIGGER UACC YES; Urine Blood Negative (Negative); Urine Ketones Trace mg/dL (Negative); Urine Protein 30 (1+) mg/dL (Neg-Trace)
[2023-09-13 21:29] LABS: Bacteria Urine None Seen (None Seen); Hyaline Casts Urine 0-2 /LPF (0-2); RBC Urine 0-2 /HPF (0-2); Squamous Epithelial Cell Urine 0-2 /HPF (0-2); WBC Urine 0-5 /HPF (0-5)
[2023-09-13 23:46] VITALS: BP 146/55; PULSE 76; RESP 14; TEMP 36.7; O2SAT 97
== END 2023-09-14 00:02 | disposition home or self-care (01) ==
PROVIDERS: Registered Nurse Emergency; Emergency Provider Internal Medicine; PCP Internal Medicine
DX: R10.9 Unspecified abdominal pain (principal); J44.9 Chronic obstructive pulmonary disease, unspecified; R94.31 Abnormal electrocardiogram [ECG] [EKG]; R06.02 Shortness of breath; Z99.81 Dependence on supplemental oxygen; Z79.01 Long term (current) use of anticoagulants; Z79.899 Other long term (current) drug therapy; Z87.891 Personal history of nicotine dependence
CPT/HCPCS: 36415; 74176; 80053; 81001; 84484; 85025; 85610; 93005; 99284

== ENCOUNTER 2023-10-10 14:53 | Emergency (ER) | payer MEDICARE, SELFPAY ==
--- NOTE | ~2023-10-10 | CT_ITS ---
EXAMINATION: CT brain without contrast. Chest x-ray. CLINICAL INDICATIONS: Dyspnea on exertion. Head injury 4 days ago on Xarelto and aspirin COMPARISON: CT brain 07/07/2018. Chest x-ray 08/03/2023. TECHNIQUE: Chest x-ray 2 views. 5 mm thin axial and reformatted 2 mm thin sagittal and coronal images of brain were obtained. DLP 745 mGy/cm. This CT examination was performed using dose optimization technique as appropriate, variously including the following: Automated exposure control Adjustment of MA and/or KV according to patient size(this includes techniques or standardized protocols for targeted exams where dose is matched to indication/reason for exam; extremities or head. Use of iterative reconstruction techniques. FINDINGS: CHEST: The lungs are well-expanded and clear of acute pneumonic process. The heart size and pulmonary vascularity is normal. There is mild dextroscoliosis mid to lower dorsal spine. There is reverse total left shoulder prosthesis. Brain: There is no acute intra-axial, extra-axial bleed, masses or midline shift. There is no acute infarction evolution. There is no edema. The alexandre to white matter differentiation is maintained normal. The lateral ventricles are symmetrical in size and configuration but enlarged. There is diffuse periventricular hypodensity in both cerebral hemispheres without mass effect. Bone windows reveal no calvarial abnormality. There is no scalp soft tissue abnormality. There is diffuse mucoperiosteal thickening involving bilateral maxillary and ethmoid sinuses. The mastoid sinuses are clear. CT/CT head/brain wo IV con IMPRESSION: 1. No acute intracranial process seen. 2. Age-related cerebral volume loss with chronic small vessel ischemic changes in both cerebral hemispheres. 3. Chronic bilateral maxillary and ethmoid sinus inflammatory changes. 4. Unremarkable chest exam except for mild dextroscoliosis of mid to lower dorsal spine.
--- NOTE | 2023-10-10 16:16 | ED.HEATRA ---
HPI - Head Injury General Chief complaint: General Medical Stated complaint: Head injury Time Seen by Provider: 10/10/23 18:02 Source: patient Mode of arrival: ambulatory Limitations: no limitations History of Present Illness HPI Narrative: Patient apparently hit his head to the gradual 3 days ago no loss of consciousness not on any blood thinner sent by PCP for evaluation patient feeling normal otherwise has chronic lung disease with COPD and home oxygen 2 L slight short of breath on exertion not using his nebulizer saturating 95% at 2 L on arrival no chest pain or palpitation Related Data Home Medications Medication Instructions Recorded Confirmed aspirin 81 mg tablet,delayed 81 mg PO DAILY 02/22/21 08/02/23 release (Adult Low Dose Aspirin) atorvastatin 10 mg tablet 10 mg PO DAILY 02/22/21 08/02/23 citalopram 20 mg tablet 20 mg PO DAILY 02/22/21 08/02/23 omeprazole 20 mg capsule,delayed 20 mg PO DAILY 02/22/21 08/02/23 release ipratropium bromide 42 mcg (0.06 2 spray intranasal TID 08/02/23 08/02/23 %) nasal spray rivaroxaban 2.5 mg tablet (Xarelto) 2.5 mg PO BID 08/02/23 08/02/23 ropinirole 2 mg tablet 2 mg PO BEDTIME 08/02/23 08/02/23 Previous Rx's Medication Instructions Recorded albuterol sulfate 90 mcg/actuation 2 puff inhalation Q4-6H PRN 06/12/22 aerosol inhaler (ProAir HFA) shortness of breath or wheezing 60 days #6.7 grams fluticasone fur. 200 mcg-umeclid 1 inh inhalation DAILY #60 ea 05/08/23 62.5 mcg-vilant 25 mcg inhalat.powder (Trelegy Ellipta) albuterol sulfate 2.5 mg/3 mL 2.5 mg (3 mL) inhalation Q4-6H PRN 05/28/23 (0.083 %) solution for nebulization shortness of breath or wheezing #90 mL dexamethasone 6 mg tablet 6 mg PO DAILY #5 tabs 08/08/23 furosemide 20 mg tablet 20 mg PO DAILY #30 tabs 08/08/23 Allergies Allergy/AdvReac Type Severity Reaction Status Date / Time No Known Allergies Allergy Unknown NOT Verified 10/10/23 16:16 APPLICABLE Review of Systems Review of Systems: Yes all other systems are reviewed and are negative [facility] Past Medical History Medical History HTN (hypertension) Bilateral carotid artery disease Surgical History Hx of prostatectomy Hx of hernia repair Hx of rotator cuff surgery Family History Family History Father CVD (cardiovascular disease) Mother No problems noted. Social History Social History Household Members: None Housing: House Do you presently have visiting nurse or other home services: Yes Alcohol intake: former Patient Tobacco Use Status: Former Tobacco user Cigarette Packs Per Day: 2 Cigarettes Per Day: 40.0 Smoked in Last 30 Days: No Use of substances other than those prescribed or required for medical reasons: No Advance Directives: No Advance Directives Information Provided: No service: No Physical Exam Vital Signs: Vital Signs: Last Vital Signs Temp 98.2 F 10/10/23 19:38 Pulse 81 10/10/23 19:38 Resp 22 H 10/10/23 19:38 BP 169/61 H 10/10/23 19:38 Pulse Ox 96 10/10/23 19:38 O2 Del Method Room Air 10/10/23 19:38 O2 Flow Rate 2 10/10/23 18:12 Oxygen Flow Rate 2 10/10/23 16:17 BMI result Body Mass Index 24.9 Appearance: Alert. Oriented X3. No acute distress. Eyes: PERRLA, no pallor HEENT: Pharynx normal. Oral Mucosa moist superficial abrasion+ Neck: Normal inspection. Neck supple. No midline tenderness CVS: Normal heart rate and rhythm. Pulses normal. Respiratory: No respiratory distress. Equal air entry bilateral, prolonged expiration with mild wheezing no crackles Abdomen: Soft and nontender. Bowel sounds are present, no mass palpable, no CVA tenderness Skin: Skin warm and dry. Normal skin color. Normal skin turgor. Extremities: No lower extremity edema. No calf tenderness Neuro: Oriented X 3. No motor deficit. No sensory deficit.No cerebellar signs , cranial nerves II-XII intact Course Course Course Narrative: RME: 88yo M w/PMHx HTN, CHF, COPD, chronic hypoxic respiratory failure on 2L home O2 (baseline), PAD on Xarelto/ASA c/o head injury 4 days ago s/p hitting on garage door. Tetanus UTD. denies LOC. Also reports worsening dyspnea on exertion x few days. denies CP +superficial abrasion noted to top of head. satting 92-93% on baseline O2 EKG, Labs, CXR, Head CT ordered Full HPI, ROS and PE to be performed by primary ED provider. Medications Administered Discontinued Medications Generic Name Dose Route Start Last Admin Trade Name Freq PRN Reason Stop Dose Admin Albuterol Sulfate 2.5 mg/ 0 mg 10/10/23 18:38 10/10/23 18:47 Albuterol/Ipratropium 3 ml INHALE 10/10/23 18:39 1 dose ONCE ONE Administration Medical Decision Making Medical Decision Making [facility] Narrative: Patient's COPD on home oxygen not using his nebulizing treatment mild wheezing on arrival with minor head injury workup negative patient received DuoNeb treatment in the ER feeling much better ambulating steady gait will discharge patient home advised to continue his nebulizing treatment Differential Diagnosis Differential Diagnoses: The differential diagnosis associated with the presentation includes SDH/ICH/skull fracture/COPD/CHF Lab Data [facility] Lab Attestation statement: I reviewed the patient's lab results. 10/10/23 16:58 10/10/23 16:58 Labs: Lab Results 10/10/23 Range/Units 16:58 WBC 12.8 H (4.8-10.8) X10*3/uL RBC 4.14 L (4.60-5.80) X10*6/uL Hgb 8.9 L (14.0-18.0) g/dl Hct 30.8 L (42.0-52.0) % MCV 74.4 L (80.0-98.0) fL MCH 21.5 L (27.0-33.0) pg MCHC 28.9 L (31.0-36.0) g/dl RDW 18.6 H (11.0-16.0) % Plt Count 349 (160-400) X10*3/uL MPV 10.6 (9.4-12.4) fL Immature Gran % (Auto) 0.4 (0.0-0.4) % Neut % (Auto) 75.5 H (45-73) % Lymph % (Auto) 12.1 L (20-40) % [place] % (Auto) 6.8 (2-11) % Eos % (Auto) 4.5 H (0-4) % Baso % (Auto) 0.7 (0-2) % Lymph # (Auto) 1.5 (1.2-4.9) X10*3/uL [place] # (Auto) 0.9 (0.1-1.2) X10*3/uL Eos # (Auto) 0.6 H (0.0-0.4) X10*3/uL Baso # (Auto) 0.1 (0.0-0.2) X10*3/uL Abs Immat Gran (auto) 0.05 H (0.00-0.03) X10*3/uL Absolute Neuts (auto) 9.7 H (2.0-8.3) x10*3/uL Absolute Nucleated RBC 0.000 (0.0-0.012) X10*3/uL Nucleated RBC % (auto) 0.0 (0.0-0.2) /100WBC PT 14.3 H (11.1-13.3) SEC INR 1.2 H (0.9-1.1) Sodium 142 (135-145) mmol/L Potassium 4.1 (3.3-5.1) mmol/L Chloride 108 (96-108) mmol/L Carbon Dioxide 26 (22-29) mmol/L Anion Gap 12 (12-20) BUN 16 (9-16) mg/dL Creatinine 1.46 H (0.5-1.4) mg/dL Estim Creat Clear Calc 34.4 Estimated GFR 46 Random Glucose 114 (60-115) mg/dL Calcium 9.0 (8.4-10.2) mg/dL Total Bilirubin 0.3 (0.0-1.0) mg/dL Direct Bilirubin 0.2 (0.0-0.5) mg/dL AST 22 (5-37) U/L ALT 11 (0-40) U/L Alkaline Phosphatase 85 (39-117) U/L Troponin I High Sens 9.5 (<3.5-35.0) ng/L B-Natriuretic Peptide 254 H (<100) pg/mL Total Protein 6.7 (6.5-8.0) g/dL Albumin 3.8 (3.5-5.0) g/dL Independent Interpretation I performed an independent interpretation of an: EKG, Plain X-Ray and CT Scan Interpretation: Normal sinus rhythm heart rate 64 beats per minute normal axis QTc interval [address] T wave changes no acute ischemia, no acute change from previous Radiology Impression Discussion of test interpretation with radiology: I have reviewed the radiologist's reading. Discharge Plan Discharge Clinical Impression: COPD (chronic obstructive pulmonary disease), Minor closed head injury Patient Disposition: Home, Self-Care Instructions: Head Injury (ED), COPD (Chronic Obstructive Pulmonary Disease) (ED) Additional Instructions: Use albuterol nebulizer every 4-6 hours as needed Continue to use your oxygen Follow with PCP Prescriptions: No Action albuterol sulfate 2.5 mg /3 mL (0.083 %) solution for nebulization 2.5 mg inhalation Q4-6H PRN (Reason: shortness of breath or wheezing) Qty: 90 0RF ipratropium bromide 42 mcg (0.06 %) spray,non-aerosol 2 spray intranasal TID dexamethasone 6 mg tablet 6 mg PO DAILY Qty: 5 0RF furosemide 20 mg tablet 20 mg PO DAILY Qty: 30 0RF Xarelto 2.5 mg tablet 2.5 mg PO BID ropinirole 2 mg tablet 2 mg PO BEDTIME citalopram 20 mg tablet 20 mg PO DAILY omeprazole 20 mg capsule,delayed release(DR/EC) 20 mg PO DAILY atorvastatin 10 mg tablet 10 mg PO DAILY aspirin [Adult Low Dose Aspirin] 81 mg tablet,delayed release (DR/EC) 81 mg PO DAILY albuterol sulfate [ProAir HFA] 90 mcg/actuation HFA aerosol inhaler 2 puff inhalation Q4-6H PRN (Reason: shortness of breath or wheezing) 60 Days Qty: 6.7 2RF Trelegy Ellipta 200-62.5-25 mcg blister with device 1 inh inhalation DAILY Qty: 60 6RF Interventions: ED Discharge Assessment Last Done: 10/10/23 19:50 Discharge Date/Time: 10/10/23 19:50
[2023-10-10 16:17] VITALS: BP 148/47; PULSE 70; RESP 18; TEMP 37.1; O2SAT 93; BMI 24.9
--- NOTE | 2023-10-10 16:22 | ECG_ITS ---
Test Reason : LYLES Blood Pressure : / mmHG Vent. Rate : 064 BPM Atrial Rate : 064 BPM P-R Int : 184 ms QRS Dur : 082 ms QT Int : 490 ms P-R-T Axes : 030 050 070 degrees QTc Int : 505 ms Normal sinus rhythm Prolonged QT Abnormal ECG When compared with ECG of 13-SEP-2023 23:13, CT interval has decreased Referred By: Carin Leger Electronically Signed By:LROENA TELLO MD
[2023-10-10 17:03] LABS: MANUAL DIFF FLAG NO
[2023-10-10 17:05] LABS: Basophils Absolute Auto 0.1 X10*3/uL (0.0-0.2); Basophils Percent Auto 0.7 % (0-2); Eosinophils Absolute Auto 0.6 X10*3/uL (0.0-0.4); Eosinophils Percent Auto 4.5 % (0-4); Hematocrit 30.8 % (42.0-52.0); Hemoglobin 8.9 g/dl (14.0-18.0); Imm Gran Abs Auto 0.05 X10*3/uL (0.00-0.03); Imm Gran Pct Auto 0.4 % (0.0-0.4); Lymphocytes Absolute Auto 1.5 X10*3/uL (1.2-4.9); Lymphocytes Percent Auto 12.1 % (20-40); Mean Corpuscular HGB Conc 28.9 g/dl (31.0-36.0); Mean Corpuscular Hemoglobin 21.5 pg (27.0-33.0); Mean Corpuscular Volume 74.4 fL (80.0-98.0); Mean Platelet Volume 10.6 fL (9.4-12.4); Monocytes Absolute Auto 0.9 X10*3/uL (0.1-1.2); Monocytes Percent Auto 6.8 % (2-11); Neutrophils Absolute Auto 9.7 x10*3/uL (2.0-8.3); Neutrophils Percent Auto 75.5 % (45-73); Platelet Count 349 X10*3/uL (160-400); Red Blood Count 4.14 X10*6/uL (4.60-5.80); Red Cell Distribution Width 18.6 % (11.0-16.0); White Blood Count 12.8 X10*3/uL (4.8-10.8)
[2023-10-10 17:11] LABS: INTERNATIONAL NORM RATIO 1.2 (0.9-1.1); Prothrombin Time 14.3 SEC (11.1-13.3)
[2023-10-10 17:21] LABS: Alanine Aminotransferase 11 U/L (0-40); Albumin Level 3.8 g/dL (3.5-5.0); Alkaline Phosphatase 85 U/L (39-117); Anion Gap 12 (12-20); Aspartate Amino Transferase 22 U/L (5-37); Bilirubin Direct 0.2 mg/dL (0.0-0.5); Bilirubin Total 0.3 mg/dL (0.0-1.0); Blood Urea Nitrogen 16 mg/dL (9-16); Carbon Dioxide 26 mmol/L (22-29); Chloride 108 mmol/L (96-108); Creatinine Clr Calc Pharmacy 34.4; Estimated Glomerular Filt Rate 46; Glucose Random 114 mg/dL (60-115); Potassium 4.1 mmol/L (3.3-5.1); Sodium 142 mmol/L (135-145); Total Protein 6.7 g/dL (6.5-8.0)
[2023-10-10 17:25] LABS: B Type Natriuretic Peptide 254 pg/mL (<100)
[2023-10-10 17:28] LABS: Troponin-I High Sensitivity 9.5 ng/L (<3.5-35.0)
[2023-10-10 17:52] VITALS: RESP 20; O2SAT 97
--- NOTE | 2023-10-10 17:56 | PC.NURSE ---
Patient reports garage door hit him on the head on saturday, denies pain or discomfort. Patient with scabbed area to top of head. Small part of area with missing scab. No drainage, no s/s of infection at this time.
[2023-10-10 18:12] VITALS: BP 147/53; PULSE 70; RESP 16; TEMP 37.2; O2SAT 98
[2023-10-10] MEDS: Albuterol Sulfate 2.5 MG, Albuterol/Iprat 2.5/0.5MG 3 ML 3 ML INHALE (18:47)
[2023-10-10 18:49] VITALS: PULSE 64; RESP 16; O2SAT 95
[2023-10-10 19:38] VITALS: BP 169/61; PULSE 81; RESP 22; TEMP 36.8; O2SAT 96
== END 2023-10-10 19:50 | disposition home or self-care (01) ==
PROVIDERS: Physician Assistant; Emergency Provider Internal Medicine; PCP Internal Medicine
DX: R55 Syncope and collapse (principal); R51.9 Headache, unspecified; R06.02 Shortness of breath; R94.31 Abnormal electrocardiogram [ECG] [EKG]; J44.9 Chronic obstructive pulmonary disease, unspecified; Z99.81 Dependence on supplemental oxygen; Z79.899 Other long term (current) drug therapy; Z87.891 Personal history of nicotine dependence; Z79.01 Long term (current) use of anticoagulants
CPT/HCPCS: 36415; 70450; 71046; 80048; 80076; 83880; 84484; 85025; 85610; 93005; 94640; 99284; 99285

== ENCOUNTER → 2023-10-10 16:22 | Outpatient (BNV) | payer MEDICARE, SELFPAY | PROVIDERS: Emergency Provider Internal Medicine; PCP Internal Medicine; Visit Provider Internal Medicine Cardiovascular Disease | DX: R94.31 Abnormal electrocardiogram [ECG] [EKG] (principal) | CPT/HCPCS: 93010 ==

== ENCOUNTER 2023-10-17 10:43 | Outpatient (REF) | payer MEDICARE, SELFPAY ==
[2023-10-17 11:12] LABS: MANUAL DIFF FLAG NO
[2023-10-17 11:26] LABS: Basophils Absolute Auto 0.1 X10*3/uL (0.0-0.2); Basophils Percent Auto 0.8 % (0-2); Eosinophils Absolute Auto 0.9 X10*3/uL (0.0-0.4); Hematocrit 32.7 % (42.0-52.0); Hemoglobin 9.5 g/dl (14.0-18.0); Imm Gran Abs Auto 0.04 X10*3/uL (0.00-0.03); Imm Gran Pct Auto 0.4 % (0.0-0.4); Lymphocytes Absolute Auto 1.7 X10*3/uL (1.2-4.9); Lymphocytes Percent Auto 15.6 % (20-40); Mean Corpuscular HGB Conc 29.1 g/dl (31.0-36.0); Mean Corpuscular Hemoglobin 21.2 pg (27.0-33.0); Mean Platelet Volume 10.5 fL (9.4-12.4); Monocytes Absolute Auto 0.9 X10*3/uL (0.1-1.2); Monocytes Percent Auto 8.7 % (2-11); Neutrophils Absolute Auto 7.1 x10*3/uL (2.0-8.3); Neutrophils Percent Auto 66.5 % (45-73); Platelet Count 382 X10*3/uL (160-400); Red Blood Count 4.48 X10*6/uL (4.60-5.80); Red Cell Distribution Width 18.5 % (11.0-16.0); White Blood Count 10.7 X10*3/uL (4.8-10.8)
[2023-10-17 11:28] LABS: Appearance Urine Clear; Color Urine Yellow; Glucose Urine UA Negative (Negative); Leukocyte Esterase Urine Negative (Negative); Nitrite Urine Negative (Negative); UMIC TRIGGER UACC YES; Urine Blood Negative (Negative); Urine Ketones Negative (Negative); Urine Protein 30 (1+) mg/dL (Neg-Trace)
[2023-10-17 11:32] LABS: Bacteria Urine None Seen (None Seen); Hyaline Casts Urine 0-2 /LPF (0-2); RBC Urine 0-2 /HPF (0-2); Squamous Epithelial Cell Urine 0-2 /HPF (0-2); WBC Urine 0-5 /HPF (0-5)
[2023-10-17 11:45] LABS: Alanine Aminotransferase 14 U/L (0-40); Albumin Level 4.1 g/dL (3.5-5.0); Alkaline Phosphatase 91 U/L (39-117); Anion Gap 13 (12-20); Aspartate Amino Transferase 22 U/L (5-37); Bilirubin Total 0.6 mg/dL (0.0-1.0); Blood Urea Nitrogen 16 mg/dL (9-16); Calcium 9.5 mg/dL (8.4-10.2); Carbon Dioxide 23 mmol/L (22-29); Chloride 109 mmol/L (96-108); Cholesterol 134 mg/dL (<200); Estimated Glomerular Filt Rate 46; Glucose Fasting 101 mg/dL (60-99); HDL Cholesterol 56 mg/dL (>40); Iron 21 mcg/dL (45-160); LDL Cholesterol Calculated 69 mg/dL (<100); Percent Iron Saturation 8 % (15-50); Potassium 3.8 mmol/L (3.3-5.1); Sodium 141 mmol/L (135-145); Total Iron Binding Capacity 263 mcg/dL (228-428); Total Protein 7.3 g/dL (6.5-8.0); Triglycerides 47 mg/dL (<150); Unsaturated Iron Binding 242 ug/dL
[2023-10-17 12:11] LABS: PSA,Total (Free>4and<10) 2.26 ng/mL (0.00-4.00)
[2023-10-17 12:33] LABS: Creatinine Urine 155.32 mg/dL; Microalbum/Creatinine Ratio Ur 41.8 ug/mg cr (<30)
[2023-10-17 13:06] LABS: Estimated Average Glucose 123 mg/dL; Hemoglobin A1c % 5.9 % (<6.0)
== END 2023-10-17 10:44 | disposition home or self-care (01) ==
LOC: HO.LNP 10:43
PROVIDERS: Visit Provider Internal Medicine
DX: I10 Essential (primary) hypertension (principal); R73.09 Other abnormal glucose; E78.00 Pure hypercholesterolemia, unspecified; D50.9 Iron deficiency anemia, unspecified; Z12.5 Encounter for screening for malignant neoplasm of prostate
CPT/HCPCS: 80053; 80061; 81001; 82043; 82570; 83036; 83540; 84153; 85025

== ENCOUNTER 2024-01-09 15:34 | Outpatient (AMB) | payer MEDICARE, SELFPAY ==
[2024-01-09 15:47] VITALS: BP 132/58; PULSE 73; O2SAT 97
--- NOTE | 2024-01-09 15:47 | AM.OFFWIN_ITS ---
Intake Vital Signs 01/09/24 15:47 Height 5 ft 8 in BP 132/58 L Blood Pressure Location Lt brachial Position Sitting Pulse 73 Pulse Source Pulse Oximeter Pulse Oximetry (%) 97 Oxygen Delivery Method Room Air Intake Visit Reasons: EP shingles Intake Note: pt has a itchy rash on both sides of his body and lower and upper body that he has had for over a year he has tried cortisone cream with no relief Patient Tobacco Use Status: Former Tobacco user Allergies No Known Allergies Allergy (Unknown, Verified 01/09/24 15:51) NOT APPLICABLE Medication List - Last Reconciled 01/09/24 by CHEYANNE Brnadt albuterol sulfate 90 mcg/actuation (ProAir HFA) 2 puffs inhalation Q4-6H PRN 60 days albuterol sulfate 2.5 mg (3 mL) inhalation Q4-6H PRN aspirin (Adult Low Dose Aspirin) 81 mg PO DAILY atorvastatin 10 mg PO DAILY cephalexin 500 mg PO BID 7 days citalopram 20 mg PO DAILY dhlvfqimxjp-autrxasow-olaruvmg 200-62.5-25 mcg (Trelegy Ellipta) 1 inh inhalation DAILY furosemide 20 mg PO DAILY ipratropium bromide 2 sprays intranasal TID omeprazole 20 mg PO DAILY rivaroxaban (Xarelto) 2.5 mg PO BID ropinirole 2 mg PO BEDTIME triamcinolone acetonide 0.5% appl topical HPI HPI Comments History of Present Illness Details 88-year-old male presents today complain ing of a prior rash over multiple sites in his body. He is brought in by a neighbor due to his memory loss. The patient lives by himself. She has a concern for hygiene for the [facility] ent. The patient states he has had this rash for years REPLACED BY [facility] Medical History HTN (hypertension) Bilateral carotid artery disease Surgical History Hx of prostatectomy Hx of hernia repair Hx of rotator cuff surgery Family History Father CVD (cardiovascular disease) Mother No problems noted. Social History Household Members: None Housing: House Do you presently have visiting nurse or other home services: Yes Alcohol intake: former Patient Tobacco Use Status: Former Tobacco user Cigarette Packs Per Day: 2 Cigarettes Per Day: 40.0 service: No Review of Systems Const All systems reviewed & are unremarkable except as noted in HPI and below Physical Exam Vital Signs: Last Vital Signs Pulse 73 01/09/24 15:47 BP 132/58 L 01/09/24 15:47 Pulse Ox 97 01/09/24 15:47 Oxygen Delivery Method Room Air 01/09/24 15:47 Const General: other (Patient is uncomfortable) HEENT Head: Yes normal to inspection, Yes normocephalic and Yes atraumatic Ears: hearing grossly normal bilaterally General nose exam: Normal external nose present Face and sinus: Yes normal facial exam Throat: Yes posterior oropharynx normal Resp Effort & Inspection: normal respiratory effort Auscultation: clear to auscultation bilaterally Cardio Rate: regular rate Rhythm: regular rhythm Skin Rashes: rashes noted ( macular rash on arms legs trunk posterior legs) Assessment & Plan Assessment & Plan (1) Erysipelas: Code(s): A46 - Erysipelas Plan: The friend the patient will gel to use on the rash and take his meds as prescribed. He is instructed to take shower day and put on clean clothes Plan See plan Medications: New cephalexin 500 mg PO BID 14 caps 0RF 7 days Coding Level of Care Code Est Pt Level 3 (23081) Diagnoses Erysipelas A46
== END 2024-01-09 16:19 | disposition home or self-care (01) ==
PROVIDERS: PCP Internal Medicine; Visit Provider Physician Assistant Medical
DX: A46 Erysipelas (principal)
CPT/HCPCS: 99213

== ENCOUNTER → 2024-01-16 11:44 | Outpatient (BNVA) | payer MEDICARE, SELFPAY | PROVIDERS: PCP Internal Medicine; Visit Provider Internal Medicine Gastroenterology ==

== ENCOUNTER 2024-04-21 12:06 | Outpatient (REF) | payer MEDICARE, SELFPAY ==
[2024-04-21 12:29] LABS: Estimated Average Glucose 123 mg/dL; Hemoglobin A1c % 5.9 % (<6.0)
[2024-04-21 12:42] LABS: Alanine Aminotransferase 10 U/L (0-40); Albumin Level 3.9 g/dL (3.5-5.0); Alkaline Phosphatase 87 U/L (39-117); Aspartate Amino Transferase 17 U/L (5-37); Bilirubin Direct 0.1 mg/dL (0.0-0.5); Bilirubin Total 0.4 mg/dL (0.0-1.0); Cholesterol 121 mg/dL (<200); Glucose Fasting 100 mg/dL (60-99); HDL Cholesterol 50 mg/dL (>40); LDL Cholesterol Calculated 65 mg/dL (<100); Total Protein 6.7 g/dL (6.5-8.0); Triglycerides 32 mg/dL (<150)
[2024-04-21 14:52] LABS: Reflex LDLD? No
== END 2024-04-21 12:07 | disposition home or self-care (01) ==
LOC: HO.LNP 12:06
PROVIDERS: Visit Provider Internal Medicine
DX: E78.00 Pure hypercholesterolemia, unspecified (principal); R73.09 Other abnormal glucose
CPT/HCPCS: 80061; 80076; 82947; 83036

== ENCOUNTER 2024-04-27 15:44 | Outpatient (REF) | payer MEDICARE, SELFPAY ==
[2024-04-27 15:48] LABS: MANUAL DIFF FLAG NO
[2024-04-27 15:55] LABS: Basophils Absolute Auto 0.1 X10*3/uL (0.0-0.2); Basophils Percent Auto 0.8 % (0-2); Eosinophils Absolute Auto 0.7 X10*3/uL (0.0-0.4); Eosinophils Percent Auto 6.2 % (0-4); Hematocrit 27.2 % (42.0-52.0); Imm Gran Abs Auto 0.05 X10*3/uL (0.00-0.03); Imm Gran Pct Auto 0.4 % (0.0-0.4); Lymphocytes Percent Auto 8.4 % (20-40); Mean Corpuscular HGB Conc 29.4 g/dl (31.0-36.0); Mean Corpuscular Hemoglobin 21.1 pg (27.0-33.0); Mean Corpuscular Volume 71.6 fL (80.0-98.0); Monocytes Absolute Auto 0.9 X10*3/uL (0.1-1.2); Monocytes Percent Auto 7.7 % (2-11); Neutrophils Absolute Auto 8.6 x10*3/uL (2.0-8.3); Neutrophils Percent Auto 76.5 % (45-73); Platelet Count 309 X10*3/uL (160-400); Red Cell Distribution Width 19.5 % (11.0-16.0); White Blood Count 11.3 X10*3/uL (4.8-10.8)
[2024-04-27 16:01] LABS: Iron 25 mcg/dL (45-160); Percent Iron Saturation 10 % (15-50); Total Iron Binding Capacity 258 mcg/dL (228-428); Unsaturated Iron Binding 233 ug/dL
== END 2024-04-27 15:45 | disposition home or self-care (01) ==
LOC: HO.LNP 15:44
PROVIDERS: Visit Provider Internal Medicine
DX: D64.9 Anemia, unspecified (principal)
CPT/HCPCS: 83540; 85025

== ENCOUNTER 2024-06-30 14:30 | Outpatient (AMB) | payer MEDICARE, SELFPAY ==
[2024-06-30 14:39] VITALS: BP 128/62; PULSE 69; TEMP 37.1; O2SAT 90; BMI 21.9
--- NOTE | 2024-06-30 14:39 | MHC.OFFWIV ---
Intake Vital Signs 06/30/24 14:39 Height 5 ft 8 in Weight 144 lb BMI 21.9 BP 128/62 Blood Pressure Location Lt brachial Position Sitting Pulse 69 Pulse Source Pulse Oximeter Temp 98.7 F Temp Source Oral Pulse Oximetry (%) 90 L Oxygen Delivery Method Nasal Cannula Oxygen Flow Rate 3 Intake Visit Reasons: EP Ears blocked Intake Note: pt c/o bilateral ear blocked sensation Patient Tobacco Use Status: Former Tobacco user Allergies No Known Allergies Allergy (Unknown, Verified 06/30/24 14:55) NOT APPLICABLE HPI HPI Comments History of Present Illness Details 89 y/o male patient who presents to the walk in clinic with c/o bilateral ear blockage due build-up wax. Pt asking to have ears irrigated. [facility] Medical History (Updated 01/30/24 @ 09:39 by Aaliyah Shaffer NP) COPD (chronic obstructive pulmonary disease) PAD (peripheral artery disease) CHF (congestive heart failure) HTN (hypertension) Bilateral carotid artery disease Surgical History Hx of prostatectomy Hx of hernia repair Hx of rotator cuff surgery Family History Father CVD (cardiovascular disease) Mother No problems noted. Social History Household Members: None Housing: House Do you presently have visiting nurse or other home services: Yes Alcohol intake: former Patient Tobacco Use Status: Former Tobacco user Cigarette Packs Per Day: 2 Cigarettes Per Day: 40.0 service: No Review of Systems Const All systems reviewed & are unremarkable except as noted in HPI and below Physical Exam Vital Signs: Last Vital Signs Temp 98.7 F 06/30/24 14:39 Pulse 69 06/30/24 14:39 BP 128/62 06/30/24 14:39 Pulse Ox 90 L 06/30/24 14:39 Oxygen Delivery Method Nasal Cannula 06/30/24 14:39 Oxygen Flow Rate 3 06/30/24 14:39 BMI result Body Mass Index 21.9 Const General: cooperative and no acute distress Orientation/consciousness: patient oriented x3 HEENT Ears: external ears normal, TM abnormal obstructed by cerumen bilateral and unable to visualize TM (cerumen impaction) bilaterally Neuro General: patient oriented x3, gait normal and moves all extremities Psych Speech and movement: Normal speech and movement present Office Procedures Cerumen Removal From which ear canal was the cerumen removed: bilateral Removal: irrigation Notes: patient tolerated procedure well [id number] Irrigation/Lavage Assessment & Plan Assessment & Plan (1) Cerumen impaction: Code(s): H61.20 - Impacted cerumen, unspecified ear Qualifiers: Laterality: bilateral Qualified Code(s): H61.23 - Impacted cerumen, bilateral Plan: Ordered Amb Ear lavage Pt tolerated the procedure well. Right TM clear. Some Wax left in the left TM. Ordered Debrox drops. Orders: Orders AMB Cerumen Removal Today H61.23 - Impacted cerumen, bilateral Medications: New carbamide peroxide 6.5% (Debrox) 5 drps otic (ears) BID 4 days 15 mL 1RF H61.23 - Impacted cerumen, bilateral Coding Level of Care Code Est Pt Level 3 (96219) Diagnoses Bilateral impacted cerumen H61.23 Laterality: bilateral CPT Codes Office Procedure - CPT: 24342-Wmo Irrigation/Lavage ([id number]) Time Spent (min) 20
== END 2024-06-30 15:34 | disposition home or self-care (01) ==
PROVIDERS: PCP Internal Medicine; Visit Provider Nurse Practitioner Family
DX: H61.23 Impacted cerumen, bilateral (principal)
CPT/HCPCS: 69209; 99213

== ENCOUNTER 2024-07-10 07:39 | Outpatient (REF) | payer MEDICARE, SELFPAY ==
--- NOTE | ~2024-07-10 | CT_ITS ---
EXAMINATION: CT CHEST WITHOUT CONTRAST CLINICAL INFORMATION: Solitary pulmonary nodule. COMPARISON: February 05, 2023 TECHNIQUE: Multidetector volumetric CT imaging of the chest was done. Axial MIP volume rendering provided. Sagittal and coronal reformatted images were obtained. This CT examination was performed using dose optimization techniques as appropriate, variously including the following: *Automated exposure control *Adjustment of mA and/or kV according to patient size (this includes techniques or standardized protocols for targeted exams where dose is matched to indication/reason for exam; i.e. extremities or head) *Use of iterative reconstruction technique DLP: 145 mGy-cm FINDINGS: Motion artifact degrades image quality. LUNGS: Moderate centrilobular emphysema. 4 mm semisolid nodule right upper lobe in image 110. Spiculated nodule left upper lobe measuring 1.8 x 2.1 cm on image 140. Irregular nodules superior segment left lower lobe measuring 5 mm and 8 mm on image 140. 6 mm nodule left lower lobe on image 233. Irregular nodule/consolidation superior segment right lower lobe measuring 2.2 x 2.6 cm on image 256 with pleural retraction. 5 mm subpleural nodule left lower lobe in image 368. 9 mm nodule left lower lobe on image 432. Central airways are patent. MEDIASTINUM: Imaged thyroid gland is normal. No axillary lymphadenopathy. Subcarinal lymph node measures 1.1 x 2.1 cm. Pulmonary trunk is dilated. Heart size is normal. No pericardial effusion. CORONARY ARTERY CALCIFICATION: Moderate. PLEURA: No pleural effusion. UPPER ABDOMEN: Nonobstructing right renal calculi. OSSEOUS STRUCTURES: Left shoulder arthroplasty. CT/CT chest wo IV con IMPRESSION: Bilateral pulmonary nodules as described above. Compared with chest CT dated February 05, 2023, these nodules/nodular densities are new. This could represent an infectious/ inflammatory process however neoplasm is not excluded. The dominant suspicious nodule/nodular consolidation measures 2.2 x 2.6 cm in the superior segment right lower lobe. PET CT or tissue sampling may be considered. Fleischner guidelines were followed. Electronically signed by: Jean Rowe MD 07/10/2024 10:32 AM EDT
== END 2024-07-10 07:40 | disposition home or self-care (01) ==
LOC: HO.CT 07:39
PROVIDERS: PCP Internal Medicine; Visit Provider Internal Medicine
DX: R91.1 Solitary pulmonary nodule (principal)
CPT/HCPCS: 71250

== ENCOUNTER 2024-07-17 11:19 | Outpatient (REF) | payer MEDICARE, SELFPAY ==
--- NOTE | ~2024-07-17 | XR_ITS ---
EXAMINATION: XR SHOULDER, LEFT CLINICAL INFORMATION: Left shoulder pain COMPARISON: Left shoulder x-rays on 08/21/2013 TECHNIQUE: Three views of the left shoulder. FINDINGS: BONES: Bony structures are intact. Cerclage loop is seen in proximal left humeral shaft. The left humeral prosthesis is surrounded by bone cement. There is no focal bone destruction or periosteal reaction seen. JOINTS: There is normal alignment of left glenohumeral reverse arthroplasty prostheses. SOFT TISSUE: Soft tissue is normal. No abnormal air collection is seen. XR/XR shoulder LT min 2V IMPRESSION: 1. Unchanged Normal alignment of left glenohumeral reverse arthroplasty prostheses. 2. No evidence of acute fracture or dislocation. 3. No radiographic evidence of osteomyelitis. Electronically signed by: Elvira Matos MD 07/17/2024 04:53 PM EDT
== END 2024-07-17 11:20 | disposition home or self-care (01) ==
LOC: HO.XRAY 11:19
PROVIDERS: PCP Internal Medicine; Visit Provider Internal Medicine
DX: M25.512 Pain in left shoulder (principal)
CPT/HCPCS: 73030

== ENCOUNTER 2024-07-28 11:04 | Outpatient (REF) | payer MEDICARE, SELFPAY ==
--- NOTE | ~2024-07-28 | PE_ITS ---
EXAMINATION: Fluorine-18 FDG PET/CT Scan CLINICAL INDICATION: Initial treatment management. Lung nodules. PROCEDURE: 55 minutes following the intravenous administration of 17.8 mCi of fluorine 18 FDG, images from the base of the skull to the mid thighs were obtained using a combined PET/CT scanner with CT scan based attenuation correction. No oral contrast was administered. No intravenous contrast was administered. Transverse, coronal, sagittal, and volume reconstruction projections were obtained. The patient's blood glucose as determined by a finger stick, was 87 mg/dl immediately prior to injection. Total CT exam dose-length product 449.61 mGy-cm * These CT images were obtained using dose optimization techniques as appropriate, variously including the following: Automated exposure control * Adjustment of mA and/or kV according to patient size (this includes techniques or standardized protocols for targeted exams where dose is matched to indication/reason for exam; i.e. extremities or head) * Use of iterative reconstruction technique COMPARISON: No previous PET CT scan is available for comparison. CT scans of the chest dated 07/10/2024 and of the abdomen and pelvis dated 09/13/2023 are available for comparison. CT scan of the head dated 10/10/2023 is also available for comparison. FINDINGS: (Slice numbers described in this report are numbered superiorly to inferiorly with slice #1 in the head) NECK AND VISUALIZED HEAD: There is significant mucosal retention in the left maxillary sinus and this is associated with weak FDG activity. The CT appearance is not significantly changed from the 10/10/2023 CT scan of the head. Mucosal retention in the right maxillary sinus present on the 10/10/2023 study is not present on the current study. No other foci of abnormal FDG activity are noted. The distribution of FDG activity is physiological. There is no cervical lymphadenopathy. THORAX: Several pulmonary nodules visualized on the 07/10/[address] scan are visualized, but additional smaller nodules visualized on that diagnostic study are not apparent on these nondiagnostic CT images. The largest of these is a medial left upper lobe opacity measuring 2.1 x 1.1 cm in largest transverse dimensions,, slice 47/223 showing no abnormal FDG activity. Additional smaller nodules visualized are a 1.0 x 0.6 cm subpleural nodule in the superior segment of the left lower lobe, slice 44/223 and a 0.9 cm nodule in the left lower lobe, slice 90/223. Neither of these show abnormal FDG activity, but both are probably at or below the resolution of the FDG PET images. Additional subcentimeter nodules visualized on 07/10/2024 are not definitely visualized on these nondiagnostic CT images. There are no foci of abnormal FDG activity present in the chest. There are new moderately sized right and small left pleural effusions now present with no abnormal FDG activity that were not present on 07/10/2024. There is no pneumothorax. There is no pericardial fluid. There is a 2.7 x 1.2 cm subcarinal lymph node that appears slightly larger than on 07/10/2024 when it was measured as 2.1 x 1.1 cm. This shows no abnormal FDG activity. There is no additional mediastinal, supraclavicular, or axillary lymphadenopathy. ABDOMEN AND PELVIS: There is mild FDG activity in the gastrointestinal tract, most prominently diffusely in the right and transverse colon. There is a single discrete focus of increased activity in the rectosigmoid colon adjacent to the left acetabulum with no corresponding CT abnormality. All of this bowel activity is probably physiological. There are no additional foci of abnormal FDG activity suggested in the abdomen and pelvis. The liver, gallbladder, and spleen are unremarkable. There is a 0.3 nonobstructing calculus in the upper pole of the right kidney and inferior to this an additional 0.5 cm nonobstructing calculus is present. The kidneys are otherwise unremarkable. The adrenal glands and pancreas are unremarkable. The prostate gland is absent. The pelvic organs are otherwise unremarkable. MUSCULOSKELETAL: There are no foci of abnormal FDG activity in the osseous structures. There is a thoracolumbar kyphoscoliosis with lower lumbar convexity to the right. There are diffuse degenerative changes in the spine. A left total shoulder prosthesis is present with mild diffuse FDG activity adjacent to the proximal aspect of this. There is some residual radiopharmaceutical at the injection site in the left antecubital fossa There are no suspicious sclerotic or lytic lesions visualized. VASCULAR: Diffuse vascular calcifications including coronary are noted. Reference SUVmax Levels: Mediastinal Blood Pool: 1.4, Slice 64/223 Liver: 2.6, Slice 101/223 PET/PET CT fusion skull to thigh IMPRESSION: 1. Several pulmonary nodules are visualized, and these appear unchanged from the 07/10/[address] scan. Only the largest of these appears large enough to be resolved on the FDG PET images, and this 2.1 x 1.1 cm nodule medially in the left upper lobe shows no abnormal FDG activity. This suggests a benign etiology. However because approximately 10% of pulmonary malignancies demonstrate no abnormal FDG activity, if biopsy of this nodule is not obtained, followup with diagnostic CT scan in 6 months is recommended. 2. Enlarged subcarinal lymph node is present and shows no abnormal FDG activity, also suggesting a benign etiology. 3. Chronic left maxillary sinusitis with weak FDG activity. This appears unchanged from 10/10/2023, but mucosal retention in the right maxillary sinus present on 10/10/2023 is no longer present. 4. No additional abnormalities suspicious for metastatic or other malignant lesions are noted. 5. There is mild FDG activity adjacent to the proximal aspect of the left shoulder prosthesis. This may be due to normal postoperative inflammatory changes, but in the proper clinical setting this could be evidence of infection. Clinical correlation is recommended. 6. Nonobstructing right nephrolithiasis 7. Vascular calcifications including coronary. Electronically signed by: René Saunders MD 08/06/2024 09:17 AM EDT
== END 2024-07-28 11:05 | disposition home or self-care (01) ==
LOC: HO.PET 11:04
PROVIDERS: Visit Provider Internal Medicine
DX: Z13.89 Encounter for screening for other disorder (principal)

== ENCOUNTER 2024-08-03 10:14 | Emergency (ER) | payer MEDICARE, SELFPAY ==
[2024-08-03] VITALS (7 sets, daily range): BP systolic 117–144; BP diastolic 43–70; PULSE 62–74; RESP 16–20; TEMP 36.5; O2SAT 93–94; BMI 20.7
--- NOTE | ~2024-08-03 | XR_ITS ---
EXAMINATION: XR SHOULDER, RIGHT CLINICAL INFORMATION: Fall COMPARISON: None available. TECHNIQUE: 3 views of the right shoulder. FINDINGS: No fracture. Humeral head is subluxed cephalad raise the question of rotator cuff tear or deficiency. Mild arthrosis of the glenohumeral joint. Acromion clavicular joint is widening of the joint compatible with age indeterminate AC joint separation. Mild arthrosis of the joint also noted. Ossification adjacent to the lateral acromion perhaps related to old deltoid muscle tear. Surrounding bone and soft tissues unremarkable. XR/XR shoulder RT min 2V IMPRESSION: 1. No definite acute abnormality. 2. Humeral head is subluxed cephalad raises the question of rotator cuff deficiency or tear. 3. Age indeterminate AC joint separation.. Additional arthrosis of the acromion clavicular joint. Electronically signed by: Ney Duval MD 08/03/2024 01:42 PM EDT
--- NOTE | ~2024-08-03 | XR_ITS ---
EXAMINATION: XR HAND/WRIST, RIGHT CLINICAL INFORMATION: Fall COMPARISON: None available. TECHNIQUE: PA, lateral, and oblique views of the right hand and wrist. FINDINGS: The bones are intact. No fracture. Alignment is anatomic. There is narrowing of the radiocarpal joint. There is slight extension of the thumb. The first metacarpophalangeal joint is narrow. No erosions or soft tissue calcifications. XR/XR hand wrist RT IMPRESSION: No acute bony abnormality. Electronically signed by: Yvette Beck MD 08/03/2024 02:05 PM EDT RP
--- NOTE | 2024-08-03 10:40 | ECG_ITS ---
Test Reason : FALL Blood Pressure : / mmHG Vent. Rate : 063 BPM Atrial Rate : 000 BPM P-R Int : 000 ms QRS Dur : 090 ms QT Int : 472 ms P-R-T Axes : 000 061 072 degrees QTc Int : 483 ms Normal sinus rhythm Premature atrial complexes Moderate voltage criteria for LVH, may be normal variant ( Sokolow-Mederos , [place] product ) Anterior infarct , age undetermined Abnormal ECG When compared with ECG of 10-OCT-2023 16:45, Premature atrial complexes present Referred By: Carin Leger Electronically Signed By:ISABELLA FLANAGAN
--- NOTE | 2024-08-03 10:48 | ED.FALL ---
HPI - Fall General Chief Complaint: Fall Stated Complaint: FALL LAST NIGHT Time Seen by Provider: 08/03/24 10:26 Source: patient, EMS, RN notes reviewed and old records reviewed Mode of arrival: EMS History of Present Illness ED Provider: Carin Leger PA-C HPI Narrative: 89-year-old male with a past medical history of COPD on 2 L NC baseline, CAD, CHF, HTN, bilateral carotid artery disease, on ASA and Xarelto presenting to the ED via EMS complaining of right wrist pain and multiple skin tears s/p mechanical trip and fall last night. Patient states he tripped over something and his arm hit something on the way down. Denies head trauma or LOC. States he lives home alone, does not use assistive devices to ambulate. Reports frequent falls recently. Denies symptoms prior to fall including lightheadedness/dizziness, CP/SOB. Related Data Home Medications ?Medication ?Instructions ?Recorded ?Confirmed aspirin 81 mg tablet,delayed 81 mg PO DAILY 02/22/21 01/16/24 release (Adult Low Dose Aspirin) atorvastatin 10 mg tablet 10 mg PO DAILY 02/22/21 01/16/24 citalopram 20 mg tablet 20 mg PO DAILY 02/22/21 01/16/24 omeprazole 20 mg capsule,delayed 20 mg PO DAILY 02/22/21 01/16/24 release ipratropium bromide 42 mcg (0.06 2 spray intranasal TID 08/02/23 01/16/24 %) nasal spray rivaroxaban 2.5 mg tablet (Xarelto) 2.5 mg PO BID 08/02/23 01/16/24 ropinirole 2 mg tablet 2 mg PO BEDTIME 08/02/23 01/16/24 triamcinolone acetonide 0.5 % appl topical 01/09/24 01/16/24 topical cream Previous Rx's ?Medication ?Instructions ?Recorded albuterol sulfate 90 mcg/actuation 2 puff inhalation Q4-6H PRN 06/12/22 aerosol inhaler (ProAir HFA) shortness of breath or wheezing 60 days #6.7 grams albuterol sulfate 2.5 mg/3 mL 2.5 mg (3 mL) inhalation Q4-6H PRN 05/28/23 (0.083 %) solution for nebulization shortness of breath or wheezing #90 mL furosemide 20 mg tablet 20 mg PO DAILY #30 tabs 08/08/23 cephalexin 500 mg capsule 500 mg PO BID 7 days #14 caps 01/09/24 bisacodyl 5 mg tablet,delayed 10 mg (2 x 5 mg) PO ONCE colon 01/24/24 release (Dulcolax (bisacodyl)) prep 2 days #4 tabs polyethylene glycol 3350 17 17 g PO DAILY colon prep 1 day 01/24/24 gram/dose oral powder (Miralax) #238 grams fluticasone fur. 200 mcg-umeclid 1 inh inhalation DAILY #60 ea 01/30/24 62.5 mcg-vilant 25 mcg inhalat.powder (Trelegy Ellipta) carbamide peroxide 6.5 % ear drops 5 drp otic (ears) BID 4 days #15 mL 06/30/24 (Debrox) Allergies Allergy/AdvReac Type Severity Reaction Status Date / Time No Known Allergies Allergy Unknown NOT Verified 08/03/24 11:10 APPLICABLE Review of Systems Review of Systems: Yes all other systems are reviewed and are negative Constitutional: Constitutional: Reports as per [facility] Past Medical History Attestation statement: The following information was validated with the patient. Source: old records reviewed Medical History COPD (chronic obstructive pulmonary disease) PAD (peripheral artery disease) CHF (congestive heart failure) HTN (hypertension) Bilateral carotid artery disease Surgical History Hx of prostatectomy Hx of hernia repair Hx of rotator cuff surgery Family History Family History Father CVD (cardiovascular disease) Mother No problems noted. Social History Social History Household Members: None Housing: House Do you presently have visiting nurse or other home services: Yes Alcohol intake: former Patient Tobacco Use Status: Former Tobacco user Cigarette Packs Per Day: 2 Cigarettes Per Day: 40.0 Smoked in Last 30 Days: No Use of substances other than those prescribed or required for medical reasons: No Advance Directives: No Advance Directives Information Provided: No Do you have a plan to hurt others: No Plan service: No Physical Exam Vital Signs: Vital Signs: Last Vital Signs Temp 97.7 F 08/03/24 11:10 Pulse 74 08/03/24 14:29 Resp 16 08/03/24 14:29 BP 144/57 H 08/03/24 14:29 Pulse Ox 93 08/03/24 14:29 O2 Del Method Nasal Cannula 08/03/24 14:29 O2 Flow Rate 2 08/03/24 14:29 Oxygen Flow Rate 2 08/03/24 11:05 BMI result Body Mass Index 20.7 Const: General: cooperative, healthy appearing and no acute distress Orientation/consciousness: patient oriented x3 Limitations: no limitations HEENT: Head: Yes normal to inspection, Yes atraumatic, No Jade's sign and No raccoon eyes Ears: hearing grossly normal bilaterally General nose exam: Normal external nose present Face and sinus: Yes normal facial exam Mouth: Normal oral and palatal mucosa present Eyes: General: appearance normal, both eyes and all related structures EOM: EOMs intact bilaterally Neck: Neck: Yes normal visual inspection and Yes no meningeal signs Resp: Effort & Inspection: normal respiratory effort and no respiratory distress Auscultation: clear to auscultation bilaterally Cardio: Rate: regular rate Heart sounds: S1 normal heart sound present and S2 normal heart sound present GI: Inspection: Yes normal to inspection Palpation (GI): Soft to palpation, nontender, no guarding and not rigid : General: Yes no CVA tenderness Back/Spine/Pelvis: Other: No midline cervical/thoracic/lumbar spinous tenderness/step-off or deformity Back: no CVA tenderness Skin: Rashes: no rashes Wounds: no wounds Neuro: General: patient oriented x3, tone normal, moves all extremities, no meningeal signs, no focal motor deficits and CN's II-XI intact bilaterally Cranial nerves: Yes CN's II-XII intact bilaterally Motor exam (neuro): 5/5 motor strength present throughout Extrem: Other: Right shoulder without noted deformity. Nontender. Limited full ROM secondary to discomfort. Neurovascularly intact distally. Right wrist with ecchymosis and superficial skin tears. Bleeding controlled. Course Course Course Narrative: -EKG showing A.fib, rate controlled > appears to be new. Patient on Xarelto and aspirin, history of GI bleed. Will not start further anticoagulation at this time. -chronic anemia. Labs otherwise reassuring 1430--XR shoulder RT min 2V IMPRESSION: 1. No definite acute abnormality. 2. Humeral head is subluxed cephalad raises the question of rotator cuff deficiency or tear. 3. Age indeterminate AC joint separation.. Additional arthrosis of the acromion clavicular joint. XR hand wrist RT IMPRESSION: No acute bony abnormality. > physician observation initiated at 14:32 as patient needs more time to be evaluated by PT and case management were frequent falls Medications Administered Discontinued Medications Generic Name Dose Route Start Last Admin Trade Name Freq PRN Reason Stop Dose Admin Acetaminophen 325 mg 08/03/24 10:40 08/03/24 12:09 Acetaminophen 325 Mg Tablet PO 08/03/24 10:41 325 mg ONCE ONE Administration Medical Decision Making Medical Decision Making [facility] [place] Narrative: 89-year-old male with a past medical history of COPD on 2 L NC, CAD, CHF, HTN, bilateral carotid artery disease, on ASA and Xarelto presenting to the ED via EMS complaining of right wrist pain and multiple skin tears s/p mechanical trip and fall last night. On exam vital signs stable, NAD, nontoxic appearing. A&O x3, no midline spinous tenderness, no focal neuro deficits. Ecchymosis and skin tears noted to right wrist. Right shoulder with limited ROM, suspect this is chronic. Rule out metabolic/infectious etiologies. Low suspicion for ICH/skull fracture without head trauma. Plan: EKG, labs, UA, x-ray, orthostatics, patient agreeable to PT/case management due to frequent falls. Please refer to course for remaining clinical decision making, interpretation of labs/imaging results, and discussions with consultants and/or family members. Differential Diagnosis Differential Diagnoses: The differential diagnosis associated with the presentation includes As above Admission/Observation Consideration of admission/observation: Escalation of care including admission/observation considered Lab Data [facility] [place] Lab Attestation statement: I reviewed the patient's lab results. 08/03/24 11:18 08/03/24 11:18 Labs: Lab Results 08/03/24 Range/Units 11:18 WBC 11.8 H (4.8-10.8) X10*3/uL RBC 4.17 L (4.60-5.80) X10*6/uL Hgb 7.5 L (14.0-18.0) g/dl Hct 26.9 L (42.0-52.0) % MCV 64.5 L (80.0-98.0) fL MCH 18.0 L (27.0-33.0) pg MCHC 27.9 L (31.0-36.0) g/dl RDW 18.8 H (11.0-16.0) % Plt Count 326 (160-400) X10*3/uL MPV 9.9 (9.4-12.4) fL Immature Gran % (Auto) 0.3 (0.0-0.4) % Neut % (Auto) 68.6 (45-73) % Lymph % (Auto) 7.2 L (20-40) % Douglas % (Auto) 7.8 (2-11) % Eos % (Auto) 15.2 H (0-4) % Baso % (Auto) 0.9 (0-2) % Lymph # (Auto) 0.9 L (1.2-4.9) X10*3/uL Douglas # (Auto) 0.9 (0.1-1.2) X10*3/uL Eos # (Auto) 1.8 H (0.0-0.4) X10*3/uL Baso # (Auto) 0.1 (0.0-0.2) X10*3/uL Abs Immat Gran (auto) 0.03 (0.00-0.03) X10*3/uL Absolute Neuts (auto) 8.1 (2.0-8.3) x10*3/uL Absolute Nucleated RBC 0.000 (0.0-0.012) X10*3/uL Nucleated RBC % (auto) 0.0 (0.0-0.2) /100WBC Sodium 139 (135-145) mmol/L Potassium 4.3 (3.3-5.1) mmol/L Chloride 108 (96-108) mmol/L Carbon Dioxide 25 (22-29) mmol/L Anion Gap 10 L (12-20) BUN 17 H (9-16) mg/dL Creatinine 1.27 (0.5-1.4) mg/dL Estim Creat Clear Calc 36.1 Estimated GFR 54 Random Glucose 87 (60-115) mg/dL Calcium 8.9 D (8.4-10.2) mg/dL Magnesium 2.1 (1.6-2.6) mg/dL Total Bilirubin 0.5 (0.0-1.0) mg/dL Direct Bilirubin 0.3 (0.0-0.5) mg/dL AST 22 (5-37) U/L ALT 19 (0-40) U/L Alkaline Phosphatase 86 (39-117) U/L Total Protein 6.3 L (6.5-8.0) g/dL Albumin 3.6 (3.5-5.0) g/dL Independent Interpretation I performed an independent interpretation of an: EKG (My interpretation EKG AFib with competing junctional pacemaker. AFib has replaced sinus rhythm. Rate of 63. QTC 483. ) and Plain X-Ray Radiology Impression Discussion of test interpretation with radiology: I have reviewed the radiologist's reading. Independent Historian Clinical information obtained from an independent historian. History obtained from or confirmed by: EMS External Record Review External record reviewed: Inpatient record, Office record, Outpatient record, Prior outpatient labs, Prior outpatient radiology, Primary care record and Outside ED record Tests considered The following testing was considered but not selected: As above Chronic Conditions Patient?s care impacted by: Hypertension and Other (COPD) Social Determinants Patient?s care significantly limited by Social Determinants of Health including: Problems related to primary support group and Other Social Determinant of Health Discharge Plan Discharge Clinical Impression: New onset a-fib, Skin tear of right upper extremity, Rotator cuff disorder Patient Disposition: Still a Patient Prescriptions: No Action albuterol sulfate 2.5 mg /3 mL (0.083 %) solution for nebulization 2.5 mg inhalation Q4-6H PRN (Reason: shortness of breath or wheezing) Qty: 90 0RF Trelegy Ellipta 200-62.5-25 mcg blister with device 1 inh inhalation DAILY Qty: 60 6RF ipratropium bromide 42 mcg (0.06 %) spray,non-aerosol 2 spray intranasal TID furosemide 20 mg tablet 20 mg PO DAILY Qty: 30 0RF Xarelto 2.5 mg tablet 2.5 mg PO BID ropinirole 2 mg tablet 2 mg PO BEDTIME Debrox 6.5 % drops 5 drp otic (ears) BID 4 Days Qty: 15 1RF triamcinolone acetonide 0.5 % cream topical cephalexin 500 mg capsule 500 mg PO BID 7 Days Qty: 14 0RF citalopram 20 mg tablet 20 mg PO DAILY omeprazole 20 mg capsule,delayed release(DR/EC) 20 mg PO DAILY atorvastatin 10 mg tablet 10 mg PO DAILY aspirin [Adult Low Dose Aspirin] 81 mg tablet,delayed release (DR/EC) 81 mg PO DAILY albuterol sulfate [ProAir HFA] 90 mcg/actuation HFA aerosol inhaler 2 puff inhalation Q4-6H PRN (Reason: shortness of breath or wheezing) 60 Days Qty: 6.7 2RF bisacodyl [Dulcolax (bisacodyl)] 5 mg tablet,delayed release (DR/EC) 10 mg PO ONCE 2 Days Qty: 4 0RF Rx Instructions: Take 2 tablets at 12 pm daily starting 2 days before colonoscopy appointment polyethylene glycol 3350 [Miralax] 17 gram/dose powder 17 g PO DAILY 1 Days Qty: 238 0RF Rx Instructions: Mix Miralax with 64 oz(8 cups) of Crystal light. Take 2 tablets of Dulcolax qt 12 pm. Wait to have your 1st bowel movement, then begin drinking Miralax. Drink a glass of Miralax every 10-15 minutes until you are finished. You will drink at least another 4 cups of clear liquid of your choice over the next 2 hours. Please drink as many clear liquids as possible You may have clear liquids up to four hours before your procedure Referrals: [facility] [place] [facility] [Provider Group] Print Language: Greenlandic
[2024-08-03 11:23] LABS: MANUAL DIFF FLAG NO
[2024-08-03 11:26] LABS: Basophils Absolute Auto 0.1 X10*3/uL (0.0-0.2); Basophils Percent Auto 0.9 % (0-2); Eosinophils Absolute Auto 1.8 X10*3/uL (0.0-0.4); Eosinophils Percent Auto 15.2 % (0-4); Hematocrit 26.9 % (42.0-52.0); Hemoglobin 7.5 g/dl (14.0-18.0); Imm Gran Abs Auto 0.03 X10*3/uL (0.00-0.03); Imm Gran Pct Auto 0.3 % (0.0-0.4); Lymphocytes Absolute Auto 0.9 X10*3/uL (1.2-4.9); Lymphocytes Percent Auto 7.2 % (20-40); Mean Corpuscular HGB Conc 27.9 g/dl (31.0-36.0); Mean Platelet Volume 9.9 fL (9.4-12.4); Monocytes Absolute Auto 0.9 X10*3/uL (0.1-1.2); Monocytes Percent Auto 7.8 % (2-11); Neutrophils Absolute Auto 8.1 x10*3/uL (2.0-8.3); Neutrophils Percent Auto 68.6 % (45-73); Platelet Count 326 X10*3/uL (160-400); Red Blood Count 4.17 X10*6/uL (4.60-5.80); Red Cell Distribution Width 18.8 % (11.0-16.0); White Blood Count 11.8 X10*3/uL (4.8-10.8)
[2024-08-03 11:33] LABS: Mean Corpuscular Volume 64.5 fL (80.0-98.0)
[2024-08-03 11:39] LABS: Alanine Aminotransferase 19 U/L (0-40); Albumin Level 3.6 g/dL (3.5-5.0); Alkaline Phosphatase 86 U/L (39-117); Anion Gap 10 (12-20); Aspartate Amino Transferase 22 U/L (5-37); Bilirubin Direct 0.3 mg/dL (0.0-0.5); Bilirubin Total 0.5 mg/dL (0.0-1.0); Blood Urea Nitrogen 17 mg/dL (9-16); Calcium 8.9 mg/dL (8.4-10.2); Carbon Dioxide 25 mmol/L (22-29); Chloride 108 mmol/L (96-108); Creatinine Clr Calc Pharmacy 36.1; Estimated Glomerular Filt Rate 54; Glucose Random 87 mg/dL (60-115); Magnesium 2.1 mg/dL (1.6-2.6); Potassium 4.3 mmol/L (3.3-5.1); Sodium 139 mmol/L (135-145); Total Protein 6.3 g/dL (6.5-8.0)
[2024-08-03] MEDS: Acetaminophen 325 MG TABLET PO (12:09)
--- NOTE | 2024-08-03 15:21 | PC.NURSE ---
Patient requested and given hot coffee with 3 half/half creams, and 2 Splenda sugars. Also requested and given yellow jello to eat.
[2024-08-03] MEDS: Melatonin 3 MG TABLET 6 MG PO (22:06)
[2024-08-04] MEDS: traZODone HCL 100 MG TABLET PO (00:11)
--- NOTE | 2024-08-04 00:14 | PC.NURSE ---
Assumed care of pt at 2300. Pt ambulating in main overflow area, requesting bandage for scab he picke on his arm and asking for a back meterman. Oxygen not on. Pt escorted back to room, reapplied oxygen, applied lotion to his back and bandaide to Left forearm and Left shoulder. Pt reporting having difficulty sleeping and melatonin not working. Pt ambulating again in main overflow area reporting difficulty sleeping, escorted by tech back to room and oxygen reapplied, PA Dana notified of pt difficulty sleeping and Trazodone ordered and administered.
[2024-08-04 05:51] VITALS: BP 156/66; PULSE 79; RESP 17; TEMP 36.4; O2SAT 95
--- NOTE | 2024-08-04 07:27 | PC.NURSE ---
report recieved from previous RN, patient resting comfortably on stretcher, awaiting breakfast tray, plan of care remains on going
--- NOTE | 2024-08-04 07:51 | PC.NURSE ---
patient provided with breakfast tray, still asleep in his room, tray placed at bedside when he is ready to eat it
[2024-08-04 07:53] VITALS: BP 145/66; PULSE 67; RESP 16; TEMP 36.6; O2SAT 99
--- NOTE | 2024-08-04 11:45 | PC.NURSE ---
patient remains asleep, respirations even and unlabored, per GEOMAGNETICIAN patient this morning stated he was unable to sleep all night so he did not want to be disturbed. patient allowed to sleep, lunch tray placed on bedside table for his convenience, remains on O2. all safety maintained at this time
--- NOTE | 2024-08-04 11:48 | MHC.CM.ED ---
Attempted x 3 to meet with pt to review dc planning needs: pt sleeping each time: Per discussion w/RN: pt had been given medication to assist w/sleep. PT has also tried to eval pt for d/c needs. ED CM to follow
--- NOTE | 2024-08-04 13:18 | PC.NURSE ---
patient ambulatory with walker and PT with steady gait.
[2024-08-04 13:29] VITALS: BP 145/66; PULSE 67; O2SAT 99
--- NOTE | 2024-08-04 13:59 | MHC.CM.ED ---
Addendum entered by Rita José 08/04/24 15:28: RANDY arranged for skin tear / wound management. F2F uploaded: Pt will transfer to home via [facility] at 6:30 pm. Pt states he has his house keys. Multiple attempts to reach pt's dtrs unsuccessful. Original Note: Met w/pt to discuss d/c planning: pt states he resides alone and has a certified credit counselor who comes 2x weekly. Pt drives, has a walker and denies barriers to care. Pt states he has children in the area who can assist if needed. PT eval supports acute rehab: discussed w/pt who declined option. Pt would like to return to home with existing supports but states he will call his PCP should he decide he needs additional services. Messages left for pt's dtrs to assist w/transportation to home.
[2024-08-04 14:00] VITALS: BP 123/55; PULSE 68; RESP 16; TEMP 36.4; O2SAT 88
--- NOTE | 2024-08-04 14:11 | PC.NURSE ---
patient awake and alert and oriented x4, completed lunch tray, ambulatory without assistance around room, per case management patient ok to go home, attempted x2 to call numbers on file. patient not offering any complaints at this time.
--- NOTE | 2024-08-04 14:33 | PC.NURSE ---
wound dressed with xeroform gauze, telfa non stick gauze pad and wrapped with gauze. patient not complaining of any pain to the wound.
--- NOTE | 2024-08-04 16:42 | PC.NURSE ---
patient provided with dinner tray. ambulance booked for home for 630pm. patient aware, patient attempted to call son, no response at this time. remains in room, patient got himself dressed into his clothes. all safety maintained.
[2024-08-04 18:10] VITALS: BP 123/55; PULSE 68; RESP 16; TEMP 36.4; O2SAT 88
== END 2024-08-04 18:11 | disposition home or self-care (01) ==
PROVIDERS: Physician Assistant; Emergency Provider Emergency Medicine; PCP Internal Medicine
DX: S41.111A Laceration without foreign body of right upper arm, initial encounter (principal); S61.511A Laceration without foreign body of right wrist, initial encounter; I48.91 Unspecified atrial fibrillation; M75.101 Unspecified rotator cuff tear or rupture of right shoulder, not specified as traumatic; J44.9 Chronic obstructive pulmonary disease, unspecified; M25.531 Pain in right wrist; M25.511 Pain in right shoulder; R26.2 Difficulty in walking, not elsewhere classified; I25.10 Atherosclerotic heart disease of native coronary artery without angina pectoris; I10 Essential (primary) hypertension; Z79.01 Long term (current) use of anticoagulants; Z99.81 Dependence on supplemental oxygen; Z79.899 Other long term (current) drug therapy; Z87.891 Personal history of nicotine dependence
CPT/HCPCS: 36415; 73030; 73110; 73130; 80048; 80076; 83735; 85025; 93005; 97162; 99285

== ENCOUNTER → 2024-08-03 10:40 | Outpatient (BNV) | payer MEDICARE, SELFPAY | PROVIDERS: Emergency Provider Emergency Medicine; PCP Internal Medicine; Visit Provider Internal Medicine | DX: R94.31 Abnormal electrocardiogram [ECG] [EKG] (principal) | CPT/HCPCS: 93010 ==

== ENCOUNTER 2024-08-25 22:38 | Emergency (ER) | payer MEDICARE, SELFPAY ==
--- NOTE | ~2024-08-25 | XR_ITS ---
EXAMINATION: XR ABDOMEN KUB CLINICAL INDICATION: Constipation COMPARISON: PET/CT 07/28/24 TECHNIQUE: AP view of the abdomen. FINDINGS: A large stool burden is present throughout the colon. There is no evidence of ileus or obstruction. No unusual soft tissue calcifications are noted. Degenerative changes are present in the spine. Vascular calcifications are seen. The lung bases are unremarkable. XR/XR KUB IMPRESSION: Large stool burden. No evidence of bowel obstruction. Electronically signed by: John Reid MD 08/26/2024 12:49 AM CASI DILL
[2024-08-25 22:44] VITALS: BP 119/40; PULSE 81; RESP 20; TEMP 36.8; O2SAT 89; BMI 22.0
--- NOTE | 2024-08-25 23:08 | ED.GENADULT ---
HPI - General Adult General Chief complaint: General Medical Stated complaint: ?FB in Rectum Time Seen by Provider: 08/25/24 22:57 Source: patient Mode of arrival: ambulatory Limitations: no limitations History of Present Illness ED Provider: Dr. Chikis Garcia HPI narrative: Patient comes to the emergency room complaining of constipation. Patient states that he has not moved his bowels in 3 days. Patient states that he has been taking [employer] [id number] stool softeners. Patient states that occasionally he has abdominal discomfort but no significant pain. Related Data Home Medications ?Medication ?Instructions ?Recorded ?Confirmed aspirin 81 mg tablet,delayed 81 mg PO DAILY 02/22/21 01/16/24 release (Adult Low Dose Aspirin) atorvastatin 10 mg tablet 10 mg PO DAILY 02/22/21 01/16/24 citalopram 20 mg tablet 20 mg PO DAILY 02/22/21 01/16/24 omeprazole 20 mg capsule,delayed 20 mg PO DAILY 02/22/21 01/16/24 release ipratropium bromide 42 mcg (0.06 2 spray intranasal TID 08/02/23 01/16/24 %) nasal spray rivaroxaban 2.5 mg tablet (Xarelto) 2.5 mg PO BID 08/02/23 01/16/24 ropinirole 2 mg tablet 2 mg PO BEDTIME 08/02/23 01/16/24 triamcinolone acetonide 0.5 % appl topical 01/09/24 01/16/24 topical cream betamethasone dipropionate 0.05 % appl topical 08/04/24 topical cream mupirocin 2 % topical ointment topical BID 08/04/24 Previous Rx's ?Medication ?Instructions ?Recorded albuterol sulfate 90 mcg/actuation 2 puff inhalation Q4-6H PRN 06/12/22 aerosol inhaler (ProAir HFA) shortness of breath or wheezing 60 days #6.7 grams albuterol sulfate 2.5 mg/3 mL 2.5 mg (3 mL) inhalation Q4-6H PRN 05/28/23 (0.083 %) solution for nebulization shortness of breath or wheezing #90 mL furosemide 20 mg tablet 20 mg PO DAILY #30 tabs 08/08/23 bisacodyl 5 mg tablet,delayed 10 mg (2 x 5 mg) PO ONCE colon 01/24/24 release (Dulcolax (bisacodyl)) prep 2 days #4 tabs polyethylene glycol 3350 17 17 g PO DAILY colon prep 1 day 01/24/24 gram/dose oral powder (Miralax) #238 grams fluticasone fur. 200 mcg-umeclid 1 inh inhalation DAILY #60 ea 01/30/24 62.5 mcg-vilant 25 mcg inhalat.powder (Trelegy Ellipta) carbamide peroxide 6.5 % ear drops 5 drp otic (ears) BID 4 days #15 mL 06/30/24 (Debrox) polyethylene glycol 3350 17 17 g PO DAILY #119 grams 08/26/24 gram/dose oral powder (Miralax) sodium phosphates 19 gram-7 118 ml [place] DAILY #133 mL 08/26/24 gram/118 mL enema (Fleet Enema) Allergies Allergy/AdvReac Type Severity Reaction Status Date / Time No Known Allergies Allergy Unknown NOT Verified 08/25/24 22:46 APPLICABLE Review of Systems Review of Systems: Constitutional : No Weight loss, No Fever, No Chills, No Night Sweats, No Fatigue, No Malaise ENT/Mouth : No Hearing loss, No Ear Pain, No Nasal Congestion, No Sinus Pain, No Hoarseness, No sore throat, No Rhinorrhea, No Swallowing Difficulty Eyes: No Eye Pain, No Swelling, No Redness, No Foreign Body, No Discharge, No Vision Changes Cardiovascular : No Chest Pain, No SOB, No Dyspnea on Exertion, No Orthopnea, No Edema, No Palpitations Respiratory : No Cough, No Sputum, No Wheezing, No Smoke Exposure, No Dyspnea Gastrointestinal : No Nausea, No Vomiting, No Diarrhea, complaining of 3 days of Constipation, No abdominal Pain, No Hematochezia, No Melena Genitourinary : no irregular bleeding, No Dysuria, No Urinary Frequency, No Hematuria, No Urinary Incontinence, No Urgency, No Flank Pain, No Urinary Flow Changes, No Hesitancy Musculoskeletal : No joint pain, No Myalgias, No Joint Swelling Skin : No Skin Lesions, No rash Neuro : No Weakness, No Numbness, No Paresthesias, No Loss of Consciousness, No Dizziness, No Headache Psych : No Anxiety/Panic, No Depression, No SI/HI/AH/VH, No Social Issues, Heme/Lymph: No Bruising, No Bleeding,No Lymphadenopathy Endocrine : No Polyuria, No Polydipsia, No Temperature Intolerance FOR[facility]LY [facility], [facility] Past Medical History Medical History COPD (chronic obstructive pulmonary disease) PAD (peripheral artery disease) CHF (congestive heart failure) HTN (hypertension) Bilateral carotid artery disease Surgical History Hx of prostatectomy Hx of hernia repair Hx of rotator cuff surgery Family History Family History Father CVD (cardiovascular disease) Mother No problems noted. Social History Social History Household Members: None Housing: House Do you presently have visiting nurse or other home services: Yes Alcohol intake: former Patient Tobacco Use Status: Former Tobacco user Cigarette Packs Per Day: 2 Cigarettes Per Day: 40.0 Advance Directives: No Advance Directives Information Provided: Yes service: No Physical Exam ED Vital Signs: Vital Signs - 24 hr 08/25/24 22:44 Temperature 98.2 F Pulse Rate 81 Respiratory Rate 20 Blood Pressure 119/40 L Pulse Oximetry 89 L Oxygen Delivery Method Room Air BMI result Body Mass Index 22.0 Const Other: Appearance: Alert. Oriented X3. No acute distress. Well-appearing Eyes: Pupils equal, round and reactive to light. ENT: Pharynx normal. Neck: Normal inspection. Neck supple. No lymph nodes noted. No crepitus CVS: Normal heart rate and rhythm. Pulses normal. Normal S1 and S2 Respiratory: No respiratory distress. Breath sounds normal. No Wheezing. No rales Abdomen: Soft and nontender. No rigidity. No distention. Skin: Skin warm and dry. Normal skin color. Normal skin turgor. Extremities: No lower extremity edema. No Lacerations. No Rash Neuro: Oriented X 3. No motor deficit. No sensory deficit. Moving all extremities. No slurred speech. CN 2 through 12 grossly intact Psych: calm, cooperative, normal affect Course Course Course Narrative: -KUB pending -patient will be receiving a Fleet enema. Medications Administered Discontinued Medications Generic Name Dose Route Start Last Admin Trade Name Freq PRN Reason Stop Dose Admin Sodium Biphosphate/Sodium Phosphate 133 ml 08/25/24 23:02 08/26/24 01:02 Sodium Phosphate,[place]-Dibasic 133 Ml Enema [place] 08/25/24 23:03 133 ml ONCE ONE Administration Medical Decision Making Medical Decision Making MDM Narrative: My interpretation of x-ray: Large amount of stool. No SBO -patient was given a Fleet enema, patient had a successful large bowel movement Differential Diagnosis Differential Diagnoses: The differential diagnosis associated with the presentation includes (Constipation) Independent Interpretation I performed an independent interpretation of an: Plain X-Ray Radiology Impression Discussion of test interpretation with radiology: I have reviewed the radiologist's reading. Radiologist Impression: A large stool burden is present throughout the colon. There is no evidence of ileus or obstruction. No unusual soft tissue calcifications are noted. Degenerative changes are present in the spine. Vascular calcifications are seen. The lung bases are unremarkable. XR/XR KUB IMPRESSION: Large stool burden. No evidence of bowel obstruction Discharge Plan Discharge Clinical Impression: Constipation Patient Disposition: Home, Self-Care Instructions: Constipation (DC) Additional Instructions: Please follow-up with your primary care physician tomorrow. If you have any worsening or new symptoms, please return to the emergency room or call 911 Prescriptions: New polyethylene glycol 3350 [Miralax] 17 gram/dose powder 17 g PO DAILY Qty: 119 0RF Fleet Enema 19-7 gram/118 mL enema 118 ml [place] DAILY Qty: 133 3RF No Action albuterol sulfate 2.5 mg /3 mL (0.083 %) solution for nebulization 2.5 mg inhalation Q4-6H PRN (Reason: shortness of breath or wheezing) Qty: 90 0RF Trelegy Ellipta 200-62.5-25 mcg blister with device 1 inh inhalation DAILY Qty: 60 6RF ipratropium bromide 42 mcg (0.06 %) spray,non-aerosol 2 spray intranasal TID furosemide 20 mg tablet 20 mg PO DAILY Qty: 30 0RF betamethasone dipropionate 0.05 % cream TOPICAL mupirocin 2 % ointment topical BID Xarelto 2.5 mg tablet 2.5 mg PO BID ropinirole 2 mg tablet 2 mg PO BEDTIME Debrox 6.5 % drops 5 drp otic (ears) BID 4 Days Qty: 15 1RF triamcinolone acetonide 0.5 % cream topical citalopram 20 mg tablet 20 mg PO DAILY omeprazole 20 mg capsule,delayed release(DR/EC) 20 mg PO DAILY atorvastatin 10 mg tablet 10 mg PO DAILY aspirin [Adult Low Dose Aspirin] 81 mg tablet,delayed release (DR/EC) 81 mg PO DAILY albuterol sulfate [ProAir HFA] 90 mcg/actuation HFA aerosol inhaler 2 puff inhalation Q4-6H PRN (Reason: shortness of breath or wheezing) 60 Days Qty: 6.7 2RF bisacodyl [Dulcolax (bisacodyl)] 5 mg tablet,delayed release (DR/EC) 10 mg PO ONCE 2 Days Qty: 4 0RF Rx Instructions: Take 2 tablets at 12 pm daily starting 2 days before colonoscopy appointment polyethylene glycol 3350 [Miralax] 17 gram/dose powder 17 g PO DAILY 1 Days Qty: 238 0RF Rx Instructions: Mix Miralax with 64 oz(8 cups) of Crystal light. Take 2 tablets of Dulcolax qt 12 pm. Wait to have your 1st bowel movement, then begin drinking Miralax. Drink a glass of Miralax every 10-15 minutes until you are finished. You will drink at least another 4 cups of clear liquid of your choice over the next 2 hours. Please drink as many clear liquids as possible You may have clear liquids up to four hours before your procedure Print Language: Cuban
[2024-08-26] MEDS: Sodium Phosphate,Mono-Dibasic 133 ML ENEMA PR (01:02)
[2024-08-26 02:41] VITALS: BP 169/67; PULSE 79; RESP 18; TEMP 37.1; O2SAT 96
--- NOTE | 2024-08-26 02:56 | PC.NURSE ---
pt had large bm after enema.
[2024-08-26 10:29] VITALS: BP 160/60; PULSE 70; RESP 18; TEMP 37.1; O2SAT 96
== END 2024-08-26 10:30 | disposition home or self-care (01) ==
PROVIDERS: Emergency Provider Emergency Medicine; PCP Internal Medicine
DX: K59.00 Constipation, unspecified (principal); R10.2 Pelvic and perineal pain; Z79.899 Other long term (current) drug therapy; Z87.891 Personal history of nicotine dependence
CPT/HCPCS: 74018; 99284

== ENCOUNTER 2024-08-30 12:00 | Emergency (ER) | payer MEDICARE, SELFPAY ==
--- NOTE | ~2024-08-30 | XR_ITS ---
EXAMINATION: XR ABDOMEN KUB CLINICAL INDICATION: Constipation COMPARISON: Abdominal radiograph dated 08/26/2024 TECHNIQUE: AP view of the abdomen. FINDINGS: Interval decrease in stool burden, and now with moderate stool burden at the sigmoid flexure and rectum, previously with large stool burden throughout. The bowel gas pattern is normal with no evidence of ileus or obstruction. No unusual soft tissue calcifications are noted. The bones are unremarkable. XR/XR KUB IMPRESSION: Interval decrease in stool burden, and now with moderate stool burden at the sigmoid flexure and rectum, previously with large stool burden throughout. Electronically signed by: Ailyn Barroso MD 08/30/2024 01:28 PM [facility]
--- NOTE | 2024-08-30 12:08 | ED_ITS ---
HPI - General Adult General Chief complaint: General Medical Stated complaint: constipation Time Seen by Provider: 08/30/24 14:59 Source: patient Mode of arrival: ambulatory Limitations: no limitations History of Present Illness ED Provider: Ghazala Glass APRN HPI narrative: 89 yo male with history of COPD on chronic oxygen, HTN here with complaints of constipation. Seen here 08/25 for same. Given fleet enema with large bowel movement. Discharged home with miralax and fleet enemas prescriptions but patient did not pick them up. He is not taking any over the counter medications. He has not had a bowel movement since leaving. Denies abdominal pain or vomiting. Had some dizziness/shortness of breath when he came in but this improved with placing him on his home oxygen as he was hypoxic when he arrived. Related Data Home Medications ?Medication ?Instructions ?Recorded ?Confirmed aspirin 81 mg tablet,delayed 81 mg PO DAILY 02/22/21 01/16/24 release (Adult Low Dose Aspirin) atorvastatin 10 mg tablet 10 mg PO DAILY 02/22/21 01/16/24 citalopram 20 mg tablet 20 mg PO DAILY 02/22/21 01/16/24 omeprazole 20 mg capsule,delayed 20 mg PO DAILY 02/22/21 01/16/24 release ipratropium bromide 42 mcg (0.06 2 spray intranasal TID 08/02/23 01/16/24 %) nasal spray rivaroxaban 2.5 mg tablet (Xarelto) 2.5 mg PO BID 08/02/23 01/16/24 ropinirole 2 mg tablet 2 mg PO BEDTIME 08/02/23 01/16/24 triamcinolone acetonide 0.5 % appl topical 01/09/24 01/16/24 topical cream betamethasone dipropionate 0.05 % appl topical 08/04/24 topical cream mupirocin 2 % topical ointment topical BID 08/04/24 Previous Rx's ?Medication ?Instructions ?Recorded albuterol sulfate 90 mcg/actuation 2 puff inhalation Q4-6H PRN 06/12/22 aerosol inhaler (ProAir HFA) shortness of breath or wheezing 60 days #6.7 grams albuterol sulfate 2.5 mg/3 mL 2.5 mg (3 mL) inhalation Q4-6H PRN 05/28/23 (0.083 %) solution for nebulization shortness of breath or wheezing #90 mL furosemide 20 mg tablet 20 mg PO DAILY #30 tabs 08/08/23 bisacodyl 5 mg tablet,delayed 10 mg (2 x 5 mg) PO ONCE colon 01/24/24 release (Dulcolax (bisacodyl)) prep 2 days #4 tabs polyethylene glycol 3350 17 17 g PO DAILY colon prep 1 day 01/24/24 gram/dose oral powder (Miralax) #238 grams fluticasone fur. 200 mcg-umeclid 1 inh inhalation DAILY #60 ea 01/30/24 62.5 mcg-vilant 25 mcg inhalat.powder (Trelegy Ellipta) carbamide peroxide 6.5 % ear drops 5 drp otic (ears) BID 4 days #15 mL 06/30/24 (Debrox) polyethylene glycol 3350 17 17 g PO DAILY #119 grams 08/26/24 gram/dose oral powder (Miralax) sodium phosphates 19 gram-7 118 ml IA DAILY #133 mL 08/26/24 gram/118 mL enema (Fleet Enema) docusate sodium 100 mg capsule 100 mg PO DAILY #30 caps 08/30/24 (Colace) polyethylene glycol 3350 17 gram 17 g PO DAILY #100 ea 08/30/24 oral powder packet (Miralax) Allergies Allergy/AdvReac Type Severity Reaction Status Date / Time No Known Allergies Allergy Unknown NOT Verified 08/30/24 12:10 APPLICABLE Review of Systems 2 Review of Systems: Yes all other systems are reviewed and are negative Constitutional: Constitutional: Reports no additional constitutional complaints, Denies body ache(s), Denies chills, Denies fever(s), Denies headache(s) and Denies weakness Eyes: Eyes: Reports no additional eye complaints and Denies change in vision ENT: Reports system reviewed and no additional complaints, except as documented, Denies dizziness, Denies headache(s), Denies nasal congestion, Denies nasal discharge and Denies neck pain Cardiovascular: Cardiovascular: Reports no additional cardiovascular complaints, Denies chest pain, Denies leg edema and Denies dyspnea Respiratory: Respiratory: Reports no additional respiratory complaints, Denies cough and Denies dyspnea Gastrointestinal: Gastrointestinal: Reports no additional gastrointestinal complaints, Denies abdominal pain, Reports constipation, Denies diarrhea, Denies nausea and Denies vomiting Genitourinary: Genitourinary: Denies urinary incontinence Musculoskeletal: Musculoskeletal: Reports no additional musculoskeletal complaints, Denies back pain, Denies arthralgias, Denies joint swelling, Denies neck pain, Denies numbness and Denies tingling Integumentary/Breasts: Skin/Breast: Reports system reviewed and no additional complaints, except as docu and Denies rash Neurologic: Reports system reviewed and no additional complaints, except as documented, Denies Abnormal speech present, Denies dizziness, Denies headache(s), Denies numbness, Denies tingling and Denies weakness [facility] Past Medical History Attestation statement: The following information was validated with the patient. Source: old records reviewed and nursing notes reviewed Medical History COPD (chronic obstructive pulmonary disease) PAD (peripheral artery disease) CHF (congestive heart failure) HTN (hypertension) Bilateral carotid artery disease Surgical History Hx of prostatectomy Hx of hernia repair Hx of rotator cuff surgery Family History Family History Father CVD (cardiovascular disease) Mother No problems noted. Social History Social History Household Members: None Housing: House Do you presently have visiting nurse or other home services: Yes Alcohol intake: former Patient Tobacco Use Status: Former Tobacco user Cigarette Packs Per Day: 2 Cigarettes Per Day: 40.0 Advance Directives: Yes Advance Directives Information Provided: Yes Advance Directives on File: No service: No Physical Exam ED Vital Signs: Vital Signs - 24 hr 08/30/24 12:09 08/30/24 16:56 Temperature 98.1 F 97.9 F Pulse Rate 68 78 Respiratory Rate 20 18 Blood Pressure 104/39 L 145/50 H Pulse Oximetry 97 92 Oxygen Delivery Method Room Air Nasal Cannula Nasal Cannula Oxygen Flow Rate 2 BMI result Body Mass Index 20.4 Const General: cooperative, healthy appearing, comfortable and no acute distress Orientation/consciousness: patient oriented x3 Limitations: no limitations HENMT Head: Yes normal to inspection Ears: hearing grossly normal bilaterally General nose exam: Normal external nose present Face and sinus: Yes normal facial exam Mouth: Normal oral and palatal mucosa present Throat: Yes posterior oropharynx normal Eyes General: appearance normal, both eyes and all related structures Pupils: Equal, round and reactive pupils present Neck Neck: Yes normal visual inspection Chest Chest palpation & inspection: normal inspection of the chest Resp Effort & Inspection: normal respiratory effort Auscultation: clear to auscultation bilaterally Cardio Rate: regular rate Rhythm: regular rhythm Peripheral pulses: Peripheral pulses 2+ throughout GI Inspection: Yes normal to inspection Palpation (GI): Soft to palpation and nontender Auscultation: normal bowel sounds Rectal Exam - Male: Yes fecal impaction Back/Spine/Pelvis Thoracic/Lumbar Spine: thoracic and lumbar spine normal to inspection Skin General skin exam: no rashes or lesions noted Neuro General: patient oriented x3, moves all extremities, no focal motor deficits and normal sensation to monofilament Cranial nerves: Yes CN's II-XII intact bilaterally, Yes Equal, round and reactive pupils present, Yes Bilaterally intact EOM present, Yes Nystagmus not present, Yes Normal facial strength present and Yes Midline tongue present Cognition (Neuro): normal cognition Speech: No Abnormal speech present Gait exam (Neuro): Normal gait present Motor exam (neuro): 5/5 motor strength present throughout Sensory Exam: Normal double simultaneous stimulation for sensation Extrem General: Yes normal to inspection Course Course Course Narrative: RME performed by Yamilka Galaviz PA-C. Patient is an 89 year old assigned male at presenting to the emergency department with constipation and dizziness. Patient states that he feels loaded at the back door but nothing is coming out . Patient states that as he walked to the triage door he became dizzy. Patient states that his last bowel movement was the last time he was here on 08/25/2024. Detailed physical exam and review of systems are deferred to the manager shift. EKG, labs, imaging, and swabs ordered. Patient placed back in the waiting room pending room availability and results. Patient initially stated he was having issues with home cooked meals and living alone. However, case management investigated this extensively and spoke with the patient's daughter who confirmed the patient does have home cooked meals she provides as well as OT, PT, and HVNA. Reevaluation(s) Reevaluation #1: Labs show mild leukocytosis unchanged from baseline. Mildly elevated creatinine 1.46 (baseline 1.27) and BUN of 25. Patient is orally hydrating in the ER. No complaints of volume loss, abdominal pain or flank pain or urinary symptoms. KUB shows moderate stool burden. EKG normal. Will need enema, anticipate discharge with family Reevaluation #2: [id number]-Patient had BM. client technical support associate felt pulse was abnormal when checking vital signs however EKG NSR. Patient was moving and eating at this time so likely artifact. HR has been normal for several hours post incident. Will discharge patient home in the care of family. Medications Administered Discontinued Medications Generic Name Dose Route Start Last Admin Trade Name Freq PRN Reason Stop Dose Admin Sodium Biphosphate/Sodium Phosphate 133 ml 08/30/24 15:15 08/30/24 15:34 Sodium Phosphate,Sweet Grass-Dibasic 133 Ml Enema IA 08/30/24 15:16 133 ml ONCE ONE Administration Medical Decision Making Medical Decision Making [facility] Narrative: 89 yo male with history of COPD on chronic oxygen, HTN here with complaints of constipation. Seen here 08/25 for same. Given fleet enema with large bowel movement. Discharged home with miralax and fleet enemas prescriptions but patient did not pick them up. He is not taking any over the counter medications. He has not had a bowel movement since leaving. Denies abdominal pain or vomiting. Abdomen soft/nontender. +BS Fecally impacted with some removal at the bedside Will need fleet May be some social concerns from patient as well however he met with our Cadd Instructor (Barbra) who spoke to the patient and his family and all are comfortable with discharge home with outpatient services. Differential Diagnosis Differential Diagnoses: The differential diagnosis associated with the presentation includes Constipation, doubt SBO with soft, nontender, nondistended abdomen Admission/Observation Consideration of admission/observation: Escalation of care including admission/observation considered Lab Data [facility] Lab Attestation statement: I reviewed the patient's lab results. 08/30/24 12:58 08/30/24 12:58 Labs: Lab Results 08/30/24 Range/Units 12:58 WBC 12.1 H (4.8-10.8) X10*3/uL RBC 4.49 L (4.60-5.80) X10*6/uL Hgb 8.0 L (14.0-18.0) g/dl Hct 29.0 L (42.0-52.0) % MCV 64.6 L (80.0-98.0) fL MCH 17.8 L (27.0-33.0) pg MCHC 27.6 L (31.0-36.0) g/dl RDW 20.8 H (11.0-16.0) % Plt Count 296 (160-400) X10*3/uL MPV 9.7 (9.4-12.4) fL Immature Gran % (Auto) 0.4 (0.0-0.4) % Neut % (Auto) 79.3 H (45-73) % Lymph % (Auto) 6.5 L (20-40) % Sweet Grass % (Auto) 6.5 (2-11) % Eos % (Auto) 6.3 H (0-4) % Baso % (Auto) 1.0 (0-2) % Lymph # (Auto) 0.8 L (1.2-4.9) X10*3/uL Sweet Grass # (Auto) 0.8 (0.1-1.2) X10*3/uL Eos # (Auto) 0.8 H (0.0-0.4) X10*3/uL Baso # (Auto) 0.1 (0.0-0.2) X10*3/uL Abs Immat Gran (auto) 0.05 H (0.00-0.03) X10*3/uL Absolute Neuts (auto) 9.6 H (2.0-8.3) x10*3/uL Absolute Nucleated RBC 0.000 (0.0-0.012) X10*3/uL Nucleated RBC % (auto) 0.0 (0.0-0.2) /100WBC Sodium 140 (135-145) mmol/L Potassium 4.2 (3.3-5.1) mmol/L Chloride 107 (96-108) mmol/L Carbon Dioxide 18 L (22-29) mmol/L Anion Gap 19 (12-20) BUN 25 H (9-16) mg/dL Creatinine 1.46 H (0.5-1.4) mg/dL Estim Creat Clear Calc 30.0 Estimated GFR 46 Random Glucose 112 (60-115) mg/dL Calcium 9.5 D (8.4-10.2) mg/dL Magnesium 2.3 (1.6-2.6) mg/dL Total Bilirubin 0.5 (0.0-1.0) mg/dL AST 24 (5-37) U/L ALT 17 (0-40) U/L Alkaline Phosphatase 79 (39-117) U/L Troponin I High Sens 12.3 (<3.5-35.0) ng/L Total Protein 6.9 (6.5-8.0) g/dL Albumin 3.9 (3.5-5.0) g/dL Influenza Type A (PCR) NEGATIVE (Negative) Influenza Type B (PCR) NEGATIVE (Negative) RSV RNA Qual (PCR) NEGATIVE (Negative) SARS-CoV-2 RNA (RT-PCR) NEGATIVE (Negative) Independent Interpretation I performed an independent interpretation of an: EKG and Plain X-Ray Interpretation: I independently viewed the x-ray and agree with the radiology report EKG shows NSR with rate 74, normal IA, normal QRS Radiology Impression Discussion of test interpretation with radiology: I have reviewed the radiologist's reading. Radiologist Impression: [place] [id number] XRay Report Signed Patient: Too Young MR#: [id number] : 1935 Acct:[id number] Age/Sex: 89 / M ADM Date: 08/30/24 Loc: .ED Attending Dr: Ordering Physician: Yamilka Galaviz Date of Service: 08/30/24 Procedure(s): XR KUB Accession Number(s): [id number] cc: [place] Bojorquez MD; Yamilka Galaviz~ EXAMINATION: XR ABDOMEN KUB CLINICAL INDICATION: Constipation COMPARISON: Abdominal radiograph dated 08/26/2024 TECHNIQUE: AP view of the abdomen. FINDINGS: Interval decrease in stool burden, and now with moderate stool burden at the sigmoid flexure and rectum, previously with large stool burden throughout. The bowel gas pattern is normal with no evidence of ileus or obstruction. No unusual soft tissue calcifications are noted. The bones are unremarkable. XR/XR KUB IMPRESSION: Interval decrease in stool burden, and now with moderate stool burden at the sigmoid flexure and rectum, previously with large stool burden throughout. Electronically signed by: Ailyn Barroso MD 08/30/2024 01:28 PM [facility] [place] Discharge Plan Discharge Clinical Impression: Constipation Patient Disposition: Home, Self-Care Instructions: Constipation (ED) Additional Instructions: Your x-ray shows a moderate stool burden. We did have to do a rectal disimpaction so you may have some slight rectal bleeding You also received a fleet enema while you were in the emergency room You need to drink fluids daily and eat a diet rich in fiber. You may also take an over the counter fiber such as Metamucil. Take the miralax and colace daily Prescriptions: New polyethylene glycol 3350 [Miralax] 17 gram powder in packet 17 g PO DAILY Qty: 100 0RF docusate sodium [Colace] 100 mg capsule 100 mg PO DAILY Qty: 30 0RF No Action albuterol sulfate 2.5 mg /3 mL (0.083 %) solution for nebulization 2.5 mg inhalation Q4-6H PRN (Reason: shortness of breath or wheezing) Qty: 90 0RF Trelegy Ellipta 200-62.5-25 mcg blister with device 1 inh inhalation DAILY Qty: 60 6RF polyethylene glycol 3350 [Miralax] 17 gram/dose powder 17 g PO DAILY Qty: 119 0RF Fleet Enema 19-7 gram/118 mL enema 118 ml IA DAILY Qty: 133 3RF ipratropium bromide 42 mcg (0.06 %) spray,non-aerosol 2 spray intranasal TID furosemide 20 mg tablet 20 mg PO DAILY Qty: 30 0RF betamethasone dipropionate 0.05 % cream TOPICAL mupirocin 2 % ointment topical BID Xarelto 2.5 mg tablet 2.5 mg PO BID ropinirole 2 mg tablet 2 mg PO BEDTIME Debrox 6.5 % drops 5 drp otic (ears) BID 4 Days Qty: 15 1RF triamcinolone acetonide 0.5 % cream topical citalopram 20 mg tablet 20 mg PO DAILY omeprazole 20 mg capsule,delayed release(DR/EC) 20 mg PO DAILY atorvastatin 10 mg tablet 10 mg PO DAILY aspirin [Adult Low Dose Aspirin] 81 mg tablet,delayed release (DR/EC) 81 mg PO DAILY albuterol sulfate [ProAir HFA] 90 mcg/actuation HFA aerosol inhaler 2 puff inhalation Q4-6H PRN (Reason: shortness of breath or wheezing) 60 Days Qty: 6.7 2RF bisacodyl [Dulcolax (bisacodyl)] 5 mg tablet,delayed release (DR/EC) 10 mg PO ONCE 2 Days Qty: 4 0RF Rx Instructions: Take 2 tablets at 12 pm daily starting 2 days before colonoscopy appointment polyethylene glycol 3350 [Miralax] 17 gram/dose powder 17 g PO DAILY 1 Days Qty: 238 0RF Rx Instructions: Mix Miralax with 64 oz(8 cups) of Crystal light. Take 2 tablets of Dulcolax qt 12 pm. Wait to have your 1st bowel movement, then begin drinking Miralax. Drink a glass of Miralax every 10-15 minutes until you are finished. You will drink at least another 4 cups of clear liquid of your choice over the next 2 hours. Please drink as many clear liquids as possible You may have clear liquids up to four hours before your procedure Referrals: Chico Bojorquez MD [Primary Care Provider] - 1 week Print Language: Tamazight
[2024-08-30 12:09] VITALS: BP 104/39; PULSE 68; RESP 20; TEMP 36.7; O2SAT 97; BMI 20.4
--- NOTE | 2024-08-30 12:10 | ECG_ITS ---
Test Reason : DIZZINESS Blood Pressure : / mmHG Vent. Rate : 074 BPM Atrial Rate : 000 BPM P-R Int : 000 ms QRS Dur : 114 ms QT Int : 458 ms P-R-T Axes : 000 079 079 degrees QTc Int : 508 ms Accelerated Junctional rhythm Minimal voltage criteria for LVH, may be normal variant ( Sokolow-Mederos ) Nonspecific ST abnormality Prolonged QT Abnormal ECG When compared with ECG of 03-AUG-2024 11:05, Junctional rhythm has replaced Sinus rhythm ST now depressed in Inferior leads Referred By: Yamilka Galaviz Electronically Signed By:Patrick Escalona
[2024-08-30 13:04] LABS: MANUAL DIFF FLAG NO
[2024-08-30 13:05] LABS: Basophils Absolute Auto 0.1 X10*3/uL (0.0-0.2); Eosinophils Absolute Auto 0.8 X10*3/uL (0.0-0.4); Eosinophils Percent Auto 6.3 % (0-4); Imm Gran Abs Auto 0.05 X10*3/uL (0.00-0.03); Imm Gran Pct Auto 0.4 % (0.0-0.4); Lymphocytes Absolute Auto 0.8 X10*3/uL (1.2-4.9); Lymphocytes Percent Auto 6.5 % (20-40); Mean Corpuscular HGB Conc 27.6 g/dl (31.0-36.0); Mean Corpuscular Hemoglobin 17.8 pg (27.0-33.0); Mean Platelet Volume 9.7 fL (9.4-12.4); Monocytes Absolute Auto 0.8 X10*3/uL (0.1-1.2); Monocytes Percent Auto 6.5 % (2-11); Neutrophils Absolute Auto 9.6 x10*3/uL (2.0-8.3); Neutrophils Percent Auto 79.3 % (45-73); Platelet Count 296 X10*3/uL (160-400); Red Blood Count 4.49 X10*6/uL (4.60-5.80); Red Cell Distribution Width 20.8 % (11.0-16.0); White Blood Count 12.1 X10*3/uL (4.8-10.8)
[2024-08-30 13:11] LABS: Mean Corpuscular Volume 64.6 fL (80.0-98.0)
[2024-08-30 13:22] LABS: Alanine Aminotransferase 17 U/L (0-40); Albumin Level 3.9 g/dL (3.5-5.0); Alkaline Phosphatase 79 U/L (39-117); Anion Gap 19 (12-20); Aspartate Amino Transferase 24 U/L (5-37); Bilirubin Total 0.5 mg/dL (0.0-1.0); Blood Urea Nitrogen 25 mg/dL (9-16); Calcium 9.5 mg/dL (8.4-10.2); Carbon Dioxide 18 mmol/L (22-29); Chloride 107 mmol/L (96-108); Estimated Glomerular Filt Rate 46; Glucose Random 112 mg/dL (60-115); Magnesium 2.3 mg/dL (1.6-2.6); Potassium 4.2 mmol/L (3.3-5.1); Sodium 140 mmol/L (135-145); Total Protein 6.9 g/dL (6.5-8.0)
[2024-08-30 13:28] LABS: Troponin-I High Sensitivity 12.3 ng/L (<3.5-35.0)
[2024-08-30 13:52] LABS: Influenza A PCR NEGATIVE (Negative); Influenza B PCR NEGATIVE (Negative); Resp Syncy Virus RNA Qual PCR NEGATIVE (Negative); SARS COV2 PCR INHOUSE NEGATIVE (Negative)
--- NOTE | 2024-08-30 14:30 | MHC.CM.PN ---
CM RECEIVED ED CONSULT, MET WITH PT IN THE WAITING AREA. PT LIVES ALONE. PT IS 02 DEPENDENT AT 2 L/MIN VIA N/C. PT BELIEVES HIS VENDOR IS [employer]. PT GIVES THIS CM PERMISSION TO SPEAK WITH HIS DAUGHTER ESTEFANIA. CM SPOKE WITH ESTEFANIA WHO STATES PT IS ACTIVE WITH [facility] FOR SN/PT/OT /SW AND GETS ASSIST FROM BOTH DAUGHTERS WITH MEALS, HOMEMAKING. DAUGHTER ALSO ASSISTS WITH MEDICAL APPOINTMENTS SHE IS A NURSE. PROVIDER UPDATED AND RETURN REFERRAL SENT TO [facility] FOR RESUMPTION OF SERVICES. DAUGHTER ESTEFANIA WILL TRANSPORT WHEN MEDICALLY CLEARED.
[2024-08-30] MEDS: Sodium Phosphate,Mono-Dibasic 133 ML ENEMA PR (15:34)
--- NOTE | 2024-08-30 16:20 | ECG_ITS ---
Test Reason : TACHAYCARDIA Blood Pressure : / mmHG Vent. Rate : 076 BPM Atrial Rate : 076 BPM P-R Int : 172 ms QRS Dur : 076 ms QT Int : 446 ms P-R-T Axes : 106 066 074 degrees QTc Int : 501 ms Normal sinus rhythm Minimal voltage criteria for LVH, may be normal variant ( Sokolow-Mederos ) Prolonged QT Abnormal ECG When compared with ECG of 30-AUG-2024 12:43, Sinus rhythm has replaced Junctional rhythm Referred By: Ghazala Glass Electronically Signed By:Patrick Escalona
[2024-08-30 16:56] VITALS: BP 145/50; PULSE 78; RESP 18; TEMP 36.6; O2SAT 92
[2024-08-30 19:23] VITALS: BP 138/54; PULSE 80; RESP 20; TEMP 36.6; O2SAT 96
[2024-08-30 19:25] VITALS: BP 138/54; PULSE 80; RESP 20; TEMP 36.6; O2SAT 96
== END 2024-08-30 19:25 | disposition home or self-care (01) ==
PROVIDERS: Physician Assistant Medical; Emergency Provider Emergency Medicine; PCP Internal Medicine
DX: K59.00 Constipation, unspecified (principal); I10 Essential (primary) hypertension; R42 Dizziness and giddiness; R00.0 Tachycardia, unspecified; R94.31 Abnormal electrocardiogram [ECG] [EKG]; Z03.818 Encounter for observation for suspected exposure to other biological agents ruled out; Z79.899 Other long term (current) drug therapy
CPT/HCPCS: 0241U; 74018; 80053; 83735; 84484; 85025; 93005; 99284

== ENCOUNTER → 2024-08-30 12:10 | Outpatient (BNV) | payer MEDICARE, SELFPAY | PROVIDERS: Emergency Provider Emergency Medicine; PCP Internal Medicine; Visit Provider Internal Medicine Cardiovascular Disease | DX: R94.31 Abnormal electrocardiogram [ECG] [EKG] (principal) | CPT/HCPCS: 93010 ==

== ENCOUNTER 2024-09-28 12:21 | Inpatient (IN) | payer MEDICARE, SELFPAY ==
[2024-09-28] VITALS (9 sets, daily range): BP systolic 116–164; BP diastolic 48–61; PULSE 65–81; RESP 12–26; TEMP 36.3–37.1; O2SAT 85–100; BMI 20.5
--- NOTE | ~2024-09-28 | CT_ITS ---
EXAMINATION: CT HEAD WITHOUT CONTRAST CT CERVICAL SPINE WITHOUT CONTRAST CLINICAL INFORMATION: Fall. COMPARISON: CT head dated 10/10/2023. Chest CT done earlier the same day. TECHNIQUE: Contiguous axial imaging was performed from the skull base to vertex without intravenous administration of contrast. Contiguous axial CT images of the cervical spine were obtained without contrast. Sagittal and coronal reformats were provided and reviewed. This CT examination was performed using dose optimization techniques as appropriate, variously including the following: *Automated exposure control *Adjustment of mA and/or kV according to patient size (this includes techniques or standardized protocols for targeted exams where dose is matched to indication/reason for exam; i.e. extremities or head) *Use of iterative reconstruction technique DLP: 1116 mGy-cm FINDINGS: HEAD: There is no evidence of acute intracranial hemorrhage or territorial infarction. No abnormal mass effect or midline shift is seen. [place] to white matter differentiation is well preserved. No extra-axial fluid collections are identified. Prominence of the ventricles and sulci, increased when compared to the prior examination and consistent with diffuse atrophy. Hypoattenuation of the periventricular white matter is redemonstrated, consistent with chronic microvascular ischemic disease. The osseous structures and soft tissues are normal. Partial opacification of the ethmoid air cells with mucoperiosteal thickening in the left maxillary sinus where there is an air-fluid level. Findings could represent a degree of acute sinusitis. Otherwise, the mastoid air cells and visualized portions of the paranasal sinuses are well aerated. CERVICAL SPINE: The cervical lordosis is maintained. Grade 1 anterolisthesis of C4 on C5. Bony fusion of the C5 and C6 vertebral bodies. No acute fracture or subluxation. No loss of vertebral body height. Multilevel loss of intervertebral disc height with degenerative endplate changes, most severe at C6-C7. Prominent multilevel bilateral facet arthropathy. No lytic or blastic osseous lesion. Unremarkable prevertebral soft tissues. No abnormal soft tissue mass or fluid collection. Thyroid within normal limits. Partially visualized pleural calcifications within the lung apices as seen on the prior chest CT. [id number]-[id number] multilevel bilateral neural foraminal stenosis. CT/CT cervical spine wo IV con IMPRESSION: HEAD: No acute intracranial hemorrhage or mass effect. Diffuse atrophy and chronic microvascular ischemic disease, increased when compared to the prior examination. CERVICAL SPINE: No acute fracture or subluxation. Grade 1 anterolisthesis of C4 on C5. Bony fusion of the C5 and C6 vertebral bodies. Multilevel degenerative disc disease and bilateral facet arthropathy with [id number] multilevel bilateral neural foraminal stenosis. Electronically signed by: Davon De Leon MD 09/28/2024 04:50 PM [facility]
--- NOTE | ~2024-09-28 | XR_ITS ---
EXAMINATION: XR RIGHT ANKLE XR RIGHT FOOT CLINICAL INFORMATION: Fall. COMPARISON: None available. TECHNIQUE: Ankle 3 views. Foot 3 views. FINDINGS: Ankle: Alignment is anatomic. Ankle mortise is maintained. No acute fracture is seen of the visualized tibia or fibula. No talar OCD. No acute fracture is otherwise identified. Anterior calcaneal process appears intact. Plantar calcaneal spur. Dystrophic/vascular calcification in the tibial posterior soft tissue. Foot: Bony alignment is anatomic. No visible acute fracture or dislocation. Severe first MTP arthritis. No erosions. No suspicious soft tissue calcification. Mild dorsal soft tissue prominence. XR/XR foot RT 2V IMPRESSION: No radiographic evidence of acute fracture. If persistent clinical concern/symptoms, consider follow-up imaging. Severe first MTP arthritis. Electronically signed by: Daniel Barahona MD 09/28/2024 05:27 PM [facility]
--- NOTE | ~2024-09-28 | CT_ITS ---
EXAMINATION: CT CHEST, ABDOMEN AND PELVIS WITHOUT CONTRAST CLINICAL INFORMATION: Fall COMPARISON: CT chest July 10, 2024, CT abdomen and pelvis September 13, 2023 TECHNIQUE: Multidetector volumetric CT imaging of the chest, abdomen and pelvis was obtained. Axial MIP volume rendering provided. Sagittal and coronal reformatted images were obtained. This CT examination was performed using dose optimization techniques as appropriate, variously including the following: *Automated exposure control *Adjustment of mA and/or kV according to patient size (this includes techniques or standardized protocols for targeted exams where dose is matched to indication/reason for exam; i.e. extremities or head) *Use of iterative reconstruction technique DLP: 790 mGy-cm FINDINGS: LUNGS: Moderate centrilobular emphysema. No pneumothorax. No hemopneumothorax. Peripheral areas of pleural-parenchymal scarring. MEDIASTINUM: The heart is not enlarged. There is no pericardial effusion or pericardial thickening. Aorta and pulmonary arteries are not dilated. There are no pathologically enlarged mediastinal or hilar lymph nodes. AXILLA: No lymphadenopathy. LIVER, GALLBLADDER, AND BILIARY TREE: The liver is normal in size, shape, and attenuation. There are no focal hepatic lesions. There is no intra or extrahepatic bile duct dilation. The gallbladder is unremarkable with no evidence of radiopaque gallstones, gallbladder wall thickening, or obvious pericholecystic inflammatory changes. PANCREAS: Unremarkable SPLEEN: Unremarkable ADRENAL GLANDS: Unremarkable KIDNEYS AND URETERS: The kidneys are normal in size. 3 mm stones in the right upper pole. No hydronephrosis. BLADDER: Unremarkable GASTROINTESTINAL TRACT: The large and small bowel are normal in caliber. Moderate stool burden. ABDOMINAL WALL: No significant hernia is appreciated. LYMPH NODES: Normal PERITONEUM: No free intraperitoneal fluid or air. 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 Extensive atherosclerotic calcification PELVIC VISCERA: Unremarkable OSSEOUS STRUCTURES: Multilevel degenerative changes of the lumbar spine. CT/CT abdomen pelvis wo IV con IMPRESSION: 1. No acute traumatic findings in the chest, abdomen, or pelvis. 2. Moderate centrilobular emphysema. 3. 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 Electronically signed by: Spencer Layne MD 09/28/2024 03:39 PM [facility]
--- NOTE | ~2024-09-28 | XR_ITS ---
EXAMINATION: XR SHOULDER, RIGHT CLINICAL INFORMATION: pain COMPARISON: Right shoulder August 03, 2024 TECHNIQUE: Three views of the right shoulder. FINDINGS: No fracture. No dislocation. Superior subluxation of the humeral head impacting inferior surface of the acromion consistent with chronic rotator cuff tendon tear. Degenerative spurs of the inferior glenoid and the inferior humeral head at the articular surface. There is a corticated chronic osseous fragment measuring 5 mm adjacent to the acromion.. XR/XR shoulder RT min 2V IMPRESSION: 1. No acute abnormality. 2. Chronic rotator cuff tendon tear. 3. Degenerative changes of the glenohumeral joint. Electronically signed by: Jim Cordero MD 09/28/2024 08:17 PM [facility]
--- NOTE | ~2024-09-28 | CT_ITS ---
EXAMINATION: CT CHEST, ABDOMEN AND PELVIS WITHOUT CONTRAST CLINICAL INFORMATION: Fall COMPARISON: CT chest July 10, 2024, CT abdomen and pelvis September 13, 2023 TECHNIQUE: Multidetector volumetric CT imaging of the chest, abdomen and pelvis was obtained. Axial MIP volume rendering provided. Sagittal and coronal reformatted images were obtained. This CT examination was performed using dose optimization techniques as appropriate, variously including the following: *Automated exposure control *Adjustment of mA and/or kV according to patient size (this includes techniques or standardized protocols for targeted exams where dose is matched to indication/reason for exam; i.e. extremities or head) *Use of iterative reconstruction technique DLP: 790 mGy-cm FINDINGS: LUNGS: Moderate centrilobular emphysema. No pneumothorax. No hemopneumothorax. Peripheral areas of pleural-parenchymal scarring. MEDIASTINUM: The heart is not enlarged. There is no pericardial effusion or pericardial thickening. Aorta and pulmonary arteries are not dilated. There are no pathologically enlarged mediastinal or hilar lymph nodes. AXILLA: No lymphadenopathy. LIVER, GALLBLADDER, AND BILIARY TREE: The liver is normal in size, shape, and attenuation. There are no focal hepatic lesions. There is no intra or extrahepatic bile duct dilation. The gallbladder is unremarkable with no evidence of radiopaque gallstones, gallbladder wall thickening, or obvious pericholecystic inflammatory changes. PANCREAS: Unremarkable SPLEEN: Unremarkable ADRENAL GLANDS: Unremarkable KIDNEYS AND URETERS: The kidneys are normal in size. 3 mm stones in the right upper pole. No hydronephrosis. BLADDER: Unremarkable GASTROINTESTINAL TRACT: The large and small bowel are normal in caliber. Moderate stool burden. ABDOMINAL WALL: No significant hernia is appreciated. LYMPH NODES: Normal PERITONEUM: No free intraperitoneal fluid or air. 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 Extensive atherosclerotic calcification PELVIC VISCERA: Unremarkable OSSEOUS STRUCTURES: Multilevel degenerative changes of the lumbar spine. CT/CT chest wo IV con IMPRESSION: 1. No acute traumatic findings in the chest, abdomen, or pelvis. 2. Moderate centrilobular emphysema. 3. 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 Electronically signed by: Spencer Layne MD 09/28/2024 03:39 PM [facility]
--- NOTE | ~2024-09-28 | CT_ITS ---
EXAMINATION: CT HEAD WITHOUT CONTRAST CT CERVICAL SPINE WITHOUT CONTRAST CLINICAL INFORMATION: Fall. COMPARISON: CT head dated 10/10/2023. Chest CT done earlier the same day. TECHNIQUE: Contiguous axial imaging was performed from the skull base to vertex without intravenous administration of contrast. Contiguous axial CT images of the cervical spine were obtained without contrast. Sagittal and coronal reformats were provided and reviewed. This CT examination was performed using dose optimization techniques as appropriate, variously including the following: *Automated exposure control *Adjustment of mA and/or kV according to patient size (this includes techniques or standardized protocols for targeted exams where dose is matched to indication/reason for exam; i.e. extremities or head) *Use of iterative reconstruction technique DLP: 1116 mGy-cm FINDINGS: HEAD: There is no evidence of acute intracranial hemorrhage or territorial infarction. No abnormal mass effect or midline shift is seen. [place] to white matter differentiation is well preserved. No extra-axial fluid collections are identified. Prominence of the ventricles and sulci, increased when compared to the prior examination and consistent with diffuse atrophy. Hypoattenuation of the periventricular white matter is redemonstrated, consistent with chronic microvascular ischemic disease. The osseous structures and soft tissues are normal. Partial opacification of the ethmoid air cells with mucoperiosteal thickening in the left maxillary sinus where there is an air-fluid level. Findings could represent a degree of acute sinusitis. Otherwise, the mastoid air cells and visualized portions of the paranasal sinuses are well aerated. CERVICAL SPINE: The cervical lordosis is maintained. Grade 1 anterolisthesis of C4 on C5. Bony fusion of the C5 and C6 vertebral bodies. No acute fracture or subluxation. No loss of vertebral body height. Multilevel loss of intervertebral disc height with degenerative endplate changes, most severe at C6-C7. Prominent multilevel bilateral facet arthropathy. No lytic or blastic osseous lesion. Unremarkable prevertebral soft tissues. No abnormal soft tissue mass or fluid collection. Thyroid within normal limits. Partially visualized pleural calcifications within the lung apices as seen on the prior chest CT. [id number] multilevel bilateral neural foraminal stenosis. CT/CT head/brain wo IV con IMPRESSION: HEAD: No acute intracranial hemorrhage or mass effect. Diffuse atrophy and chronic microvascular ischemic disease, increased when compared to the prior examination. CERVICAL SPINE: No acute fracture or subluxation. Grade 1 anterolisthesis of C4 on C5. Bony fusion of the C5 and C6 vertebral bodies. Multilevel degenerative disc disease and bilateral facet arthropathy with [id number] multilevel bilateral neural foraminal stenosis. Electronically signed by: Davon De Leon MD 09/28/2024 04:50 PM [facility]
--- NOTE | ~2024-09-28 | CT_ITS ---
EXAMINATION: CT ANGIOGRAM OF THE CHEST WITH AND WITHOUT CONTRAST (CT PULMONARY ANGIOGRAM FOR PE) CLINICAL INFORMATION: hypoxia syncope suspicion for PE COMPARISON: CT chest July 10 2024 TECHNIQUE: Prior to contrast administration, noncontrast localization images were obtained. Subsequently, multidetector volumetric imaging was performed from the thoracic inlet to below the diaphragms following the administration of 65 mL Omnipaque 350 intravenous contrast. No contrast reaction reported. Sagittal, coronal, and MIP oblique sagittal reformatted images were obtained on the CT workstation, uploaded to PACS, and reviewed. Total exam dose-length product 274 mGy-cm FINDINGS: QUALITY OF STUDY/CONTRAST BOLUS: Satisfactory. PULMONARY ARTERIES: No central or segmental pulmonary emboli. THORACIC AORTA: No aneurysm or dissection. LUNG: No focal consolidation. Nearly resolved right lower lobe masslike consolidation, compared to July 10, 2024. Stable areas of pleural-parenchymal scarring. MEDIASTINUM: Normal heart size. No pericardial effusion. No hilar or mediastinal lymphadenopathy. No evidence of septal bowing or right heart strain. CHEST WALL/AXILLA: No axillary or internal mammary lymphadenopathy. OSSEOUS STRUCTURES: Status post left shoulder arthroplasty. Multilevel degenerative changes of the thoracic spine. UPPER ABDOMEN: Unremarkable. CT/CT angio chest PE protocol IMPRESSION: 1. No central or segmental pulmonary emboli. VTE: negative. Electronically signed by: Spencer Layne MD 09/28/2024 08:21 PM [facility]
--- NOTE | ~2024-09-28 | XR_ITS ---
EXAMINATION: XR RIGHT ANKLE XR RIGHT FOOT CLINICAL INFORMATION: Fall. COMPARISON: None available. TECHNIQUE: Ankle 3 views. Foot 3 views. FINDINGS: Ankle: Alignment is anatomic. Ankle mortise is maintained. No acute fracture is seen of the visualized tibia or fibula. No talar OCD. No acute fracture is otherwise identified. Anterior calcaneal process appears intact. Plantar calcaneal spur. Dystrophic/vascular calcification in the tibial posterior soft tissue. Foot: Bony alignment is anatomic. No visible acute fracture or dislocation. Severe first MTP arthritis. No erosions. No suspicious soft tissue calcification. Mild dorsal soft tissue prominence. XR/XR ankle RT 2V IMPRESSION: No radiographic evidence of acute fracture. If persistent clinical concern/symptoms, consider follow-up imaging. Severe first MTP arthritis. Electronically signed by: Daniel Barahona MD 09/28/2024 05:27 PM [facility]
--- NOTE | 2024-09-28 12:43 | ECG_ITS ---
Test Reason : sob Blood Pressure : / mmHG Vent. Rate : 063 BPM Atrial Rate : 063 BPM P-R Int : 166 ms QRS Dur : 082 ms QT Int : 468 ms P-R-T Axes : 050 070 072 degrees QTc Int : 478 ms Normal sinus rhythm Minimal voltage criteria for LVH, may be normal variant ( Sokolow-Mederos ) Borderline ECG When compared with ECG of 30-AUG-2024 16:24, No significant change was found Referred By: Daniel Willett Electronically Signed By:LORENA TELLO MD
--- NOTE | 2024-09-28 12:44 | ED.GENADULT ---
HPI - General Adult General Chief complaint: Fall Stated complaint: Fall shoulder pain Time Seen by Provider: 09/28/24 15:52 Source: patient, EMS and old records reviewed Mode of arrival: EMS Limitations: altered mental status History of Present Illness ED Provider: SAI CUNNINGHAM narrative: 89 yo male from home who walked in he lives alone - he has PMH of COPD on 2L NC, chronic resp failure, HTN, PAD on xarelto, GERD he initially presented to triage c/o tripping at home and states something is wrong with his foot it was asleep when I saw him he states I didn't know I was at the hospital he states he needs coffee, he then tried to get up and walk out. He knows it is September and thinks it is 2024 he cannot tell me who the president it. He will not provide me with much information and is very restless. Of note RNs have been titrating his O2 up to 6L at one point but on my assessment he was 100% so I put him down to 2L NC. MD complaint: unclear states he initially came in because his body hurt Onset (ago): unknown Location: right and upper extremity Radiation: non-radiation Severity: moderate Quality: aching Pain Consistency: constant Relieving factors: rest Exacerbating factors: movement Associated symptoms: denies other symptoms Treatments prior to arrival: none Related Data Home Medications ?Medication ?Instructions ?Recorded ?Confirmed aspirin 81 mg tablet,delayed 81 mg PO DAILY 02/22/21 01/16/24 release (Adult Low Dose Aspirin) atorvastatin 10 mg tablet 10 mg PO DAILY 02/22/21 09/28/24 citalopram 20 mg tablet 20 mg PO DAILY 02/22/21 09/28/24 omeprazole 20 mg capsule,delayed 20 mg PO DAILY 02/22/21 09/28/24 release ipratropium bromide 42 mcg (0.06 2 spray intranasal TID 08/02/23 09/28/24 %) nasal spray rivaroxaban 2.5 mg tablet (Xarelto) 2.5 mg PO BID 08/02/23 09/28/24 ropinirole 2 mg tablet 2 mg PO BEDTIME 08/02/23 01/16/24 betamethasone dipropionate 0.05 % appl topical 08/04/24 topical cream mupirocin 2 % topical ointment 1 appl topical BID 09/28/24 09/28/24 Previous Rx's ?Medication ?Instructions ?Recorded albuterol sulfate 90 mcg/actuation 2 puff inhalation Q4-6H PRN 06/12/22 aerosol inhaler (ProAir HFA) shortness of breath or wheezing 60 days #6.7 grams albuterol sulfate 2.5 mg/3 mL 2.5 mg (3 mL) inhalation Q4-6H PRN 05/28/23 (0.083 %) solution for nebulization shortness of breath or wheezing #90 mL furosemide 20 mg tablet 20 mg PO DAILY #30 tabs 08/08/23 fluticasone fur. 200 mcg-umeclid 1 inh inhalation DAILY #60 ea 01/30/24 62.5 mcg-vilant 25 mcg inhalat.powder (Trelegy Ellipta) docusate sodium 100 mg capsule 100 mg PO DAILY #30 caps 08/30/24 (Colace) Allergies Allergy/AdvReac Type Severity Reaction Status Date / Time No Known Allergies Allergy Unknown NOT Verified 09/28/24 12:30 APPLICABLE Review of Systems Review of Systems: ROS unable to be obtained due to altered mental status [facility] Past Medical History Attestation statement: The following information was validated with the patient. Source: old records reviewed Medical History COPD (chronic obstructive pulmonary disease) PAD (peripheral artery disease) CHF (congestive heart failure) HTN (hypertension) Bilateral carotid artery disease Surgical History Hx of prostatectomy Hx of hernia repair Hx of rotator cuff surgery Family History Family History Father CVD (cardiovascular disease) Mother No problems noted. Social History Social History Household Members: None Housing: House Do you presently have visiting nurse or other home services: Yes Alcohol intake: former Patient Tobacco Use Status: Former Tobacco user Cigarette Packs Per Day: 2 Cigarettes Per Day: 40.0 Advance Directives: No Advance Directives Information Provided: Yes Do you have a plan to hurt others: No Plan service: No Physical Exam ED Vital Signs: Vital Signs - 24 hr 09/28/24 12:25 09/28/24 12:57 09/28/24 14:15 Temperature 97.9 F 97.4 F 97.9 F Pulse Rate 77 69 81 Respiratory Rate 20 18 26 H Blood Pressure 116/54 L 161/56 H 164/56 H Pulse Oximetry 85 L 93 90 L Oxygen Delivery Method Nasal Cannula Nasal Cannula Nasal Cannula Oxygen Flow Rate 4 4 09/28/24 14:34 09/28/24 14:34 09/28/24 16:44 Temperature Pulse Rate 74 65 Respiratory Rate 16 14 Blood Pressure 156/59 H Pulse Oximetry 85 L 96 Oxygen Delivery Method Room Air Nasal Cannula Oxygen Flow Rate 4 6 09/28/24 16:54 09/28/24 16:59 09/28/24 16:59 Temperature 98.7 F Pulse Rate 65 Respiratory Rate 14 Blood Pressure 157/61 H Pulse Oximetry 95 88 L 92 Oxygen Delivery Method Nasal Cannula Nasal Cannula Nasal Cannula Oxygen Flow Rate 2 2 3 09/28/24 18:37 09/28/24 20:37 Temperature 98.1 F 98.1 F Pulse Rate 69 66 Respiratory Rate 12 14 Blood Pressure 155/48 H 150/59 H Pulse Oximetry 100 100 Oxygen Delivery Method Nasal Cannula Nasal Cannula Oxygen Flow Rate 3 3 BMI result Body Mass Index 20.5 Appearance: Alert. Oriented X1.5 No acute distress. Eyes: Pupils equal, round and reactive to light. ENT: Pharynx normal. Neck: Normal inspection. Neck supple. CVS: Normal heart rate and rhythm. Pulses normal. Respiratory: No respiratory distress. Breath sounds diminished and his NC on my assessment was on the side of his face Abdomen: Soft and nontender. Skin: Skin warm and dry. Normal skin color. Normal skin turgor. Extremities: No lower extremity edema. on upper back and upper arms he has excoriated scratch torres on the R posterior shoulder there is a mildly erythematous lesion with shallow ulcer noted no fluctuance and no warmth Neuro: Oriented X to place and the month. No motor deficit. No sensory deficit. Course Course Course Narrative: RME: Any 9-year-old male presents to ED for unwitnessed fall that occurred last night. Patient states bilateral shoulder pain, bilateral hip pain and right ankle pain. Patient does not remember if he is on blood thinners. Patient is oxygen dependent. Patient is on 2 L oxygen 85%. Patient not in distress but does not know normal O2 sat. EKG labs ordered. Images ordered. No signs of life-threatening etiology patient be brought back to the ED. Reevaluation(s) Reevaluation #1: daughter Sharmin aware apparently the son notes yesterday patient was more sleepy than normal takes lots of OTC medications for sleep family is trying to take control of his healthcare but he is refusing Medications Administered Generic Name Dose Route Start Last Admin Trade Name Freq PRN Reason Stop Dose Admin Albuterol/Ipratropium 3 ml 09/29/24 08:00 09/29/24 07:14 Albuterol/Iprat 2.5/0.5mg 3 Ml Ampul.Neb INHALE 3 ml RQ4H WHILE AWAKE RAAD Administration Atorvastatin Calcium 10 mg 09/29/24 09:00 09/29/24 08:34 Atorvastatin Calcium 10 Mg Tablet PO 10 mg DAILY RAAD Administration Escitalopram Oxalate 10 mg 09/29/24 09:00 09/29/24 08:34 Escitalopram Oxalate 10 Mg Tablet PO 10 mg DAILY RAAD Administration Fluticasone/Umeclidinium/Vilanterol 1 puff 09/29/24 09:00 09/29/24 07:49 Fluticasone/Umeclidinium/Vilanterol 200/62.5/25 Blst.W.Dev INHALE 1 puff RDAILY RAAD Administration Furosemide 20 mg 09/29/24 09:00 09/29/24 08:34 Furosemide 20 Mg Tablet PO 20 mg DAILY RAAD Administration Protocol Methylprednisolone Sodium Succinate 40 mg 09/29/24 09:00 09/29/24 08:35 Methylprednisolone Sod Succ 40 Mg/Ml Vial IVPUSH 40 mg Q12H RAAD Administration Omeprazole 20 mg 09/29/24 09:00 09/29/24 08:34 Omeprazole 20 Mg Capsule.Dr PO 20 mg DAILY@0630 RAAD Administration Sodium Chloride 3 ml 09/29/24 00:00 09/29/24 08:35 0.9 % Sodium Chloride Flush 3 Ml Syringe IVFLUSH 3 ml QSHIFT RAAD Administration Discontinued Medications Generic Name Dose Route Start Last Admin Trade Name Freq PRN Reason Stop Dose Admin Albuterol Sulfate 2.5 mg 09/28/24 16:44 09/28/24 16:45 Albuterol Sulfate (0.083%) 2.5 Mg/3 Ml Vial.Neb INHALE 09/28/24 16:45 2.5 mg ONCE ONE Administration Ceftriaxone Sodium 1 gm 09/28/24 17:01 09/28/24 17:54 Ceftriaxone Sodium 1 Gm Vial IVPUSH 09/28/24 17:02 1 gm ONCE ONE Administration Iohexol 100 ml 09/28/24 17:42 09/28/24 17:43 Iohexol 350 Mg/Ml 100 Ml Infus..Btl IV 09/28/24 17:43 65 ml ONCE ONE Administration Methylprednisolone Sodium Succinate 60 mg 09/28/24 16:35 09/28/24 16:52 Methylprednisolone Sod Succ 125 Mg/2 Ml Vial IVPUSH 09/28/24 16:36 60 mg ONCE ONE Administration Medical Decision Making Medical Decision Making [facility] Narrative: 89 yo male from home who walked in he lives alone - he has PMH of COPD on 2L NC, chronic resp failure, HTN, PAD on xarelto, GERD he initially presented to triage c/o tripping at home but then he is altered on my exam and he is very frail with increasing O2 demands. He had newman scans without trauma but given the increase in O2 I have ordered bronch, steroids, lactic acid, cultures, IV ceftriaxone. He states he lives alone so I am concerned about his presentation and he is not a safe DC. Differential Diagnosis Differential Diagnoses: The differential diagnosis associated with the presentation includes toxic or metabolic encephalopathy, chronic resp failure, LORENZO, anemia, head injury Admission/Observation Consideration of admission/observation: Escalation of care including admission/observation considered admit for further work up increased O2, COPD exacerbation and encephalopathy Consult Healthcare Provider Management of the patient was discussed with: Hospitalist Lab Data [facility] Lab Attestation statement: I reviewed the patient's lab results. 09/29/24 04:57 09/29/24 04:57 Labs: Lab Results 09/28/24 09/28/24 09/28/24 Range/Units 13:03 15:05 16:48 WBC 13.7 H (4.8-10.8) X10*3/uL RBC 4.36 L (4.60-5.80) X10*6/uL Hgb 8.0 L (14.0-18.0) g/dl Hct 28.6 L (42.0-52.0) % MCV 65.6 L (80.0-98.0) fL MCH 18.3 L (27.0-33.0) pg MCHC 28.0 L (31.0-36.0) g/dl RDW 22.6 H (11.0-16.0) % Plt Count 312 (160-400) X10*3/uL MPV 9.7 (9.4-12.4) fL Immature Gran % (Auto) 0.4 (0.0-0.4) % Neut % (Auto) 73.2 H (45-73) % Lymph % (Auto) 5.5 L (20-40) % Mcdonough % (Auto) 8.5 (2-11) % Eos % (Auto) 11.7 H (0-4) % Baso % (Auto) 0.7 (0-2) % Lymph # (Auto) 0.8 L (1.2-4.9) X10*3/uL Mcdonough # (Auto) 1.2 (0.1-1.2) X10*3/uL Eos # (Auto) 1.6 H (0.0-0.4) X10*3/uL Baso # (Auto) 0.1 (0.0-0.2) X10*3/uL Abs Immat Gran (auto) 0.05 H (0.00-0.03) X10*3/uL Absolute Neuts (auto) 10.0 H (2.0-8.3) x10*3/uL Absolute Nucleated RBC 0.000 (0.0-0.012) X10*3/uL Nucleated RBC % (auto) 0.0 (0.0-0.2) /100WBC PT 19.7 H (10.9-12.4) SEC INR 1.7 H (0.9-1.1) APTT 36.9 H (26.0-36.8) SEC VBG pH 7.38 (7.32-7.43) VBG pCO2 44 mmHg VBG pO2 44 mmHg VBG HCO3 27 H (22-26) mmol/L VBG O2 Saturation 63.0 % VBG Base Excess 1.8 mmol/L Sodium 138 (135-145) mmol/L Potassium 4.5 (3.3-5.1) mmol/L Chloride 108 (96-108) mmol/L Carbon Dioxide 22 (22-29) mmol/L Anion Gap 13 (12-20) BUN 28 H (9-16) mg/dL Creatinine 1.35 (0.5-1.4) mg/dL Estim Creat Clear Calc 32.7 Estimated GFR 50 Random Glucose 87 (60-115) mg/dL Lactic Acid 1.0 (0.5-2.0) mmol/L Calcium 8.7 D (8.4-10.2) mg/dL Total Bilirubin 0.5 (0.0-1.0) mg/dL AST 65 H (5-37) U/L ALT 36 (0-40) U/L Alkaline Phosphatase 71 (39-117) U/L Total Creatine Kinase 297 H (38-174) U/L Troponin I High Sens 19.8 D 23.1 (<3.5-35.0) ng/L B-Natriuretic Peptide 365 H (<100) pg/mL Total Protein 6.6 (6.5-8.0) g/dL Albumin 3.7 (3.5-5.0) g/dL Procalcitonin 0.06 ng/mL Ethyl Alcohol < 10 mg/dL Influenza Type A (PCR) NEGATIVE (Negative) Influenza Type B (PCR) NEGATIVE (Negative) RSV RNA Qual (PCR) NEGATIVE (Negative) SARS-CoV-2 RNA (RT-PCR) NEGATIVE (Negative) 09/28/24 Range/Units 16:55 WBC (4.8-10.8) X10*3/uL RBC (4.60-5.80) X10*6/uL Hgb (14.0-18.0) g/dl Hct (42.0-52.0) % MCV (80.0-98.0) fL MCH (27.0-33.0) pg MCHC (31.0-36.0) g/dl RDW (11.0-16.0) % Plt Count (160-400) X10*3/uL MPV (9.4-12.4) fL Immature Gran % (Auto) (0.0-0.4) % Neut % (Auto) (45-73) % Lymph % (Auto) (20-40) % Mcdonough % (Auto) (2-11) % Eos % (Auto) (0-4) % Baso % (Auto) (0-2) % Lymph # (Auto) (1.2-4.9) X10*3/uL Mcdonough # (Auto) (0.1-1.2) X10*3/uL Eos # (Auto) (0.0-0.4) X10*3/uL Baso # (Auto) (0.0-0.2) X10*3/uL Abs Immat Gran (auto) (0.00-0.03) X10*3/uL Absolute Neuts (auto) (2.0-8.3) x10*3/uL Absolute Nucleated RBC (0.0-0.012) X10*3/uL Nucleated RBC % (auto) (0.0-0.2) /100WBC PT (10.9-12.4) SEC INR (0.9-1.1) APTT (26.0-36.8) SEC VBG pH 7.39 (7.32-7.43) VBG pCO2 44 mmHg VBG pO2 47 mmHg VBG HCO3 27 H (22-26) mmol/L VBG O2 Saturation 68.0 % VBG Base Excess 2.3 mmol/L Sodium (135-145) mmol/L Potassium (3.3-5.1) mmol/L Chloride (96-108) mmol/L Carbon Dioxide (22-29) mmol/L Anion Gap (12-20) BUN (9-16) mg/dL Creatinine (0.5-1.4) mg/dL Estim Creat Clear Calc Estimated GFR Random Glucose (60-115) mg/dL Lactic Acid (0.5-2.0) mmol/L Calcium (8.4-10.2) mg/dL Total Bilirubin (0.0-1.0) mg/dL AST (5-37) U/L ALT (0-40) U/L Alkaline Phosphatase (39-117) U/L Total Creatine Kinase (38-174) U/L Troponin I High Sens (<3.5-35.0) ng/L B-Natriuretic Peptide (<100) pg/mL Total Protein (6.5-8.0) g/dL Albumin (3.5-5.0) g/dL Procalcitonin ng/mL Ethyl Alcohol mg/dL Influenza Type A (PCR) (Negative) Influenza Type B (PCR) (Negative) RSV RNA Qual (PCR) (Negative) SARS-CoV-2 RNA (RT-PCR) (Negative) Independent Interpretation I performed an independent interpretation of an: EKG, Plain X-Ray and CT Scan (no trauma ) Interpretation: Rate: 63 Rhythm: NSR [place]: normal Normal P waves. Normal NAHEED. Normal QRS complex. ST T wave : no ABBY, inverted t waves V1 qTC: 478 prior studies: no acute ischemia The study has been interpreted contemporaneously by me. . Radiology Impression Discussion of test interpretation with radiology: I have reviewed the radiologist's reading. External Record Review External record reviewed: Inpatient record Discharge Plan Discharge Clinical Impression: Acute exacerbation of chronic obstructive pulmonary disease, Hypoxia, Encephalopathy acute Patient Disposition: Admitted As Inpatient
--- NOTE | 2024-09-28 13:01 | MHC.CM.ED ---
Patient is currently in ER. Received notification from Edvin NINO that patient is active with their agency. Return referral made in [facility] so agency can follow for d/c needs.
[2024-09-28 13:09] LABS: MANUAL DIFF FLAG NO
[2024-09-28 13:10] LABS: Basophils Absolute Auto 0.1 X10*3/uL (0.0-0.2); Basophils Percent Auto 0.7 % (0-2); Eosinophils Absolute Auto 1.6 X10*3/uL (0.0-0.4); Eosinophils Percent Auto 11.7 % (0-4); Hematocrit 28.6 % (42.0-52.0); Imm Gran Abs Auto 0.05 X10*3/uL (0.00-0.03); Imm Gran Pct Auto 0.4 % (0.0-0.4); Lymphocytes Absolute Auto 0.8 X10*3/uL (1.2-4.9); Lymphocytes Percent Auto 5.5 % (20-40); Mean Corpuscular Hemoglobin 18.3 pg (27.0-33.0); Mean Corpuscular Volume 65.6 fL (80.0-98.0); Mean Platelet Volume 9.7 fL (9.4-12.4); Monocytes Absolute Auto 1.2 X10*3/uL (0.1-1.2); Monocytes Percent Auto 8.5 % (2-11); Neutrophils Percent Auto 73.2 % (45-73); Platelet Count 312 X10*3/uL (160-400); Red Blood Count 4.36 X10*6/uL (4.60-5.80); Red Cell Distribution Width 22.6 % (11.0-16.0); White Blood Count 13.7 X10*3/uL (4.8-10.8)
--- NOTE | 2024-09-28 13:10 | PC.NURSE ---
pt presents to the ED as a poor historian. alert and oriented to self only. otherwise unable to answer questions appropriately. pt pleasantly confused. vss and up to date aside from noting to be hypoxic while in triage. pt is on 2L via NC baseline (hx of COPD). pt noted to be @ 85% on 2L via NC. when entering main ED, unable to obtain SPO2 d/t cold extremities. SPO2 obtained via forehead probe - pt titrated to 4L via NC - SPO2 @ 93%. pt presents to the ED s/p unwitnessed fall while in the bathroom last night. unknown headstrike, unknown loc, unknown thinners. neuros intact. PERRLA. pt also noted to have rash noted throughout entire body. red patches noted throughout. small abrasions noted throughout d/t excessive scratching. 18gIV placed in the left forearm - labs obtained/sent to lab. plan of care ongoing. call irene placed within reach.
[2024-09-28 13:18] LABS: INTERNATIONAL NORM RATIO 1.7 (0.9-1.1); Prothrombin Time 19.7 SEC (10.9-12.4)
[2024-09-28 13:21] LABS: Partial Thromboplastin Time 36.9 SEC (26.0-36.8)
[2024-09-28 13:28] LABS: Alanine Aminotransferase 36 U/L (0-40); Albumin Level 3.7 g/dL (3.5-5.0); Alkaline Phosphatase 71 U/L (39-117); Anion Gap 13 (12-20); Aspartate Amino Transferase 65 U/L (5-37); Bilirubin Total 0.5 mg/dL (0.0-1.0); Blood Urea Nitrogen 28 mg/dL (9-16); Calcium 8.7 mg/dL (8.4-10.2); Carbon Dioxide 22 mmol/L (22-29); Chloride 108 mmol/L (96-108); Creatinine Clr Calc Pharmacy 32.7; Estimated Glomerular Filt Rate 50; Glucose Random 87 mg/dL (60-115); Potassium 4.5 mmol/L (3.3-5.1); Sodium 138 mmol/L (135-145); Total Protein 6.6 g/dL (6.5-8.0)
[2024-09-28 13:32] LABS: B Type Natriuretic Peptide 365 pg/mL (<100)
[2024-09-28 13:33] LABS: Troponin-I High Sensitivity 19.8 ng/L (<3.5-35.0)
--- NOTE | 2024-09-28 13:39 | PC.NURSE ---
pt to CT at this time.
[2024-09-28 13:47] LABS: Influenza A PCR NEGATIVE (Negative); Influenza B PCR NEGATIVE (Negative); Resp Syncy Virus RNA Qual PCR NEGATIVE (Negative); SARS COV2 PCR INHOUSE NEGATIVE (Negative)
--- NOTE | 2024-09-28 14:35 | PC.NURSE ---
pt noted to desat to 85% on 4L via NC. slight sob noted. pt turned/repositioned upright to promote patent airway. pt's O2 titrated to 6L via NC - SPO2 @ 96%. otherwise vss and up to date. pt waiting to be seen by main ED provider. scan results pending at this time. plan of care ongoing. call irene placed within reach.
[2024-09-28 15:09] LABS: VBG Base Excess 1.8 mmol/L; VBG HCO3 27 mmol/L (22-26); VBG pCO2 44 mmHg; VBG pH 7.38 (7.32-7.43); VBG pO2 44 mmHg
[2024-09-28 15:09] LABS: Venous Blood Gas Refer to POC result
[2024-09-28] MEDS: Albuterol Sulfate (0.083%) 2.5 MG/3 ML VIAL.NEB INHALE (16:45)
[2024-09-28] MEDS: methylPREDNISolone Sod Succ 125 MG/2 ML VIAL 60 MG IVPUSH (16:52)
[2024-09-28 17:09] LABS: VBG Base Excess 2.3 mmol/L; VBG HCO3 27 mmol/L (22-26); VBG pCO2 44 mmHg; VBG pH 7.39 (7.32-7.43); VBG pO2 47 mmHg
[2024-09-28 17:14] LABS: Ethanol < 10 mg/dL
[2024-09-28 17:23] LABS: Troponin-I High Sensitivity 23.1 ng/L (<3.5-35.0)
--- NOTE | 2024-09-28 17:30 | PC.NURSE ---
Pt. is at PE study at this time
[2024-09-28 17:32] LABS: Venous Blood Gas Refer to POC result
[2024-09-28] MEDS: iohexoL 350 MG/ML 100 ML INFUS..BTL IV (17:43)
[2024-09-28] MEDS: cefTRIAXone sodium 1 GM VIAL IVPUSH (17:54)
--- NOTE | 2024-09-28 21:33 | PHA.MEDREC ---
Pharmacy Consult ? Medication Reconciliation Pharmacy has completed the medication reconciliation. Went to see if patient had family at bedside or if I can maybe get anything out of him but patient was sleeping when I went into room. I tried calling patients daughter and primary care contact Sharmin and around [phone] and she did not answer and I left a voicemail to call the pharmacy back and that we are closed at 2300 until 0600. I utilized claims to confirm what I could for the patient now and we will have the morning med rec pathology lab technician follow up in the morning and confirm.
--- NOTE | 2024-09-28 21:40 | P.HPHOSP_ITS ---
History of Present Illness Date of Service: 09/28/24 Attending physician on admission: Kahtleen Burris Chief Complaint: s/p fall Too Young is 89 years old man with past medical history significant for COPD/chronic hypoxic respiratory failure -on home oxygen 2 L/min, PAD on Xarelto, CHF and hypertension was brought to the emergency department after he sustained a mechanical fall. He landed on the right shoulder. HI was obtained provider and chart review as the patient is a very poor historian 2 week to provide it. Upon arrival to the emergency department it seems like he was complaining of pain to the shoulders hip and right ankle. He uses fentanyl patches. Former smoker. According to ED provider family stated that the patient recently has been given [id number] sleep aids. In the ED, he was found to have oxygen saturation 85% on 2 L/min and tachypneic. Blood pressure stable and there is no fever. Blood workup showed mild leukocytosis of 13.7 which is around his baseline. There is no lactic acidosis. Hemoglobin is also at baseline and platelets are 312. INR is 1.7. There is no electrolyte imbalances. BUN is 28 and creatinine 1.35. BNP is 365 and troponin is negative x2. VBG x2. Toxicology is negative for ETOH. COVID-19, RSV influenza are negative. Head CT scan showed no central or segmental pulmonary emboli, consolidation, pleural effusion or infiltrates. Head and C-spine CT scans showed no acute intracranial hemorrhage or mass effect; and no fractures or dislocations. Right ankle and foot x-ray showed no fractures. ECG showed normal sinus rhythm, LVH changes and no acute ischemic changes. ED tx: Solu-Medrol 60 mg IV, albuterol nebs on ceftriaxone 1 g IV. Review of Systems 2 Review of Systems: Yes Unobtainable due to mental condition [facility] Medical History COPD (chronic obstructive pulmonary disease) PAD (peripheral artery disease) CHF (congestive heart failure) HTN (hypertension) Bilateral carotid artery disease Family History Father CVD (cardiovascular disease) Mother No problems noted. Surgical History Hx of prostatectomy Hx of hernia repair Hx of rotator cuff surgery Social History Household Members: None Housing: House Do you presently have visiting nurse or other home services: Yes Alcohol intake: former Patient Tobacco Use Status: Former Tobacco user Cigarette Packs Per Day: 2 Cigarettes Per Day: 40.0 Advance Directives: No Advance Directives Information Provided: Yes Do you have a plan to hurt others: No Plan service: No Meds Allergies Allergy/AdvReac Type Severity Reaction Status Date / Time No Known Allergies Allergy Unknown NOT Verified 09/28/24 12:30 APPLICABLE Active Medications: Current Medications Acetaminophen (Acetaminophen 325 Mg Tablet) 95 mg PO Q6H PRN PRN Reason: Pain, Mild (Pain Scale 1-3), fever or headache Sodium Chloride (0.9 % Sodium Chloride Flush 3 Ml Syringe) [facility] ?Medication ?Instructions ?Recorded ?Confirmed ?Last Taken ?Type aspirin 81 mg tablet,delayed 81 mg PO DAILY 02/22/21 01/16/24 08/02/23 History release (Adult Low Dose Aspirin) atorvastatin 10 mg tablet 10 mg PO DAILY 02/22/21 09/28/24 08/02/23 History citalopram 20 mg tablet 20 mg PO DAILY 02/22/21 09/28/24 08/02/23 History omeprazole 20 mg capsule,delayed 20 mg PO DAILY 02/22/21 09/28/24 08/02/23 History release ipratropium bromide 42 mcg (0.06 2 spray intranasal TID 08/02/23 09/28/24 08/02/23 History %) nasal spray rivaroxaban 2.5 mg tablet (Xarelto) 2.5 mg PO BID 08/02/23 09/28/24 08/02/23 History ropinirole 2 mg tablet 2 mg PO BEDTIME 08/02/23 01/16/24 08/02/23 History betamethasone dipropionate 0.05 % appl topical 08/04/24 Unknown History topical cream mupirocin 2 % topical ointment 1 appl topical BID 09/28/24 09/28/24 Unknown History Physical Exam 2 Vital Signs and Narrative: Vital Signs: Last Vital Signs Temp 98.1 F 09/28/24 20:37 Pulse 66 09/28/24 20:37 Resp 14 09/28/24 20:37 BP 150/59 H 09/28/24 20:37 Pulse Ox 100 09/28/24 20:37 O2 Del Method Nasal Cannula 09/28/24 20:37 O2 Flow Rate 3 09/28/24 20:37 Oxygen Flow Rate 2 09/28/24 12:25 BMI result Body Mass Index 20.5 Constitutional - Awake and Alert, No apparent distress. Looks chronically ill. Nasal cannula in place. HEENT - PER, EOMI. Dry oral mucosa. Heart - S1S2, RRR, No edema Lungs - Normal lung expansion, poor respiratory effort, No respiratory distress. Mild tachypnea. Mild end expiratory wheezes. Abdomen - NT / ND; +BS; No rebound or guarding Extremities - no calf tenderness bilaterally, no swelling Musculoskeletal - generalized atrophy. Skin - Warm/Dry Neurological - Alert. No focal weakness grossly noted. Normal speech. Psychological - Depressed affect Results Labs 09/28/24 13:03 09/28/24 13:03 Labs: Laboratory Results - last 24 hr 09/28/24 09/28/24 09/28/24 13:03 15:05 16:48 MCV 65.6 L MCH 18.3 L MCHC 28.0 L RDW 22.6 H Plt Count 312 MPV 9.7 Immature Gran % (Auto) 0.4 Neut % (Auto) 73.2 H Lymph % (Auto) 5.5 L [place] % (Auto) 8.5 Eos % (Auto) 11.7 H Baso % (Auto) 0.7 Lymph # (Auto) 0.8 L [place] # (Auto) 1.2 Eos # (Auto) 1.6 H Baso # (Auto) 0.1 Abs Immat Gran (auto) 0.05 H Absolute Neuts (auto) 10.0 H Absolute Nucleated RBC 0.000 Nucleated RBC % (auto) 0.0 PT 19.7 H INR 1.7 H APTT 36.9 H VBG pH 7.38 VBG pCO2 44 VBG pO2 44 VBG HCO3 27 H VBG O2 Saturation 63.0 VBG Base Excess 1.8 Anion Gap 13 Estim Creat Clear Calc 32.7 Estimated GFR 50 Random Glucose 87 Lactic Acid 1.0 Calcium 8.7 D Total Bilirubin 0.5 AST 65 H ALT 36 Alkaline Phosphatase 71 Total Creatine Kinase 297 H Troponin I High Sens 19.8 D 23.1 B-Natriuretic Peptide 365 H Total Protein 6.6 Albumin 3.7 Ethyl Alcohol < 10 Influenza Type A (PCR) NEGATIVE Influenza Type B (PCR) NEGATIVE RSV RNA Qual (PCR) NEGATIVE SARS-CoV-2 RNA (RT-PCR) NEGATIVE 09/28/24 16:55 MCV MCH MCHC RDW Plt Count MPV Immature Gran % (Auto) Neut % (Auto) Lymph % (Auto) [place] % (Auto) Eos % (Auto) Baso % (Auto) Lymph # (Auto) [place] # (Auto) Eos # (Auto) Baso # (Auto) Abs Immat Gran (auto) Absolute Neuts (auto) Absolute Nucleated RBC Nucleated RBC % (auto) PT INR APTT VBG pH 7.39 VBG pCO2 44 VBG pO2 47 VBG HCO3 27 H VBG O2 Saturation 68.0 VBG Base Excess 2.3 Anion Gap Estim Creat Clear Calc Estimated GFR Random Glucose Lactic Acid Calcium Total Bilirubin AST ALT Alkaline Phosphatase Total Creatine Kinase Troponin I High Sens B-Natriuretic Peptide Total Protein Albumin Ethyl Alcohol Influenza Type A (PCR) Influenza Type B (PCR) RSV RNA Qual (PCR) SARS-CoV-2 RNA (RT-PCR) Imaging Radiologist's Impressions: Impressions Ankle X-Ray 09/28/24 12:41 IMPRESSION: No radiographic evidence of acute fracture. If persistent clinical concern/symptoms, consider follow-up imaging. Severe first MTP arthritis. Electronically signed by: Daniel Barahona MD 09/28/2024 05:27 PM EST RP Chest CT 09/28/24 12:41 IMPRESSION: 1. No acute traumatic findings in the chest, abdomen, or pelvis. 2. Moderate centrilobular emphysema. 3. 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 Electronically signed by: Spencer Layne MD 09/28/2024 03:39 PM EST RP Head CT 09/28/24 12:41 IMPRESSION: HEAD: No acute intracranial hemorrhage or mass effect. Diffuse atrophy and chronic microvascular ischemic disease, increased when compared to the prior examination. CERVICAL SPINE: No acute fracture or subluxation. Grade 1 anterolisthesis of C4 on C5. Bony fusion of the C5 and C6 vertebral bodies. Multilevel degenerative disc disease and bilateral facet arthropathy with [id number] multilevel bilateral neural foraminal stenosis. Electronically signed by: Davon De Leon MD 09/28/2024 04:50 PM EST RP Cervical Spine CT 09/28/24 13:52 IMPRESSION: HEAD: No acute intracranial hemorrhage or mass effect. Diffuse atrophy and chronic microvascular ischemic disease, increased when compared to the prior examination. CERVICAL SPINE: No acute fracture or subluxation. Grade 1 anterolisthesis of C4 on C5. Bony fusion of the C5 and C6 vertebral bodies. Multilevel degenerative disc disease and bilateral facet arthropathy with [id number] multilevel bilateral neural foraminal stenosis. Electronically signed by: Davon De Leon MD 09/28/2024 04:50 PM EST RP Foot X-Ray 09/28/24 14:00 IMPRESSION: No radiographic evidence of acute fracture. If persistent clinical concern/symptoms, consider follow-up imaging. Severe first MTP arthritis. Electronically signed by: Daniel Barahona MD 09/28/2024 05:27 PM EST RP Abdomen/Pelvis CT 09/28/24 14:19 IMPRESSION: 1. No acute traumatic findings in the chest, abdomen, or pelvis. 2. Moderate centrilobular emphysema. 3. 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 Electronically signed by: Spencer Layne MD 09/28/2024 03:39 PM EST RP Shoulder X-Ray 09/28/24 16:12 IMPRESSION: 1. No acute abnormality. 2. Chronic rotator cuff tendon tear. 3. Degenerative changes of the glenohumeral joint. Electronically signed by: Jim Cordero MD 09/28/2024 08:17 PM EST RP Chest CTA 09/28/24 16:35 IMPRESSION: 1. No central or segmental pulmonary emboli. VTE: negative. Electronically signed by: Spencer Layne MD 09/28/2024 08:21 PM EST RP Assessment and Plan (1) Acute exacerbation of chronic obstructive pulmonary disease: Status: Acute (2) Hypoxic respiratory failure: Qualifiers: Chronicity: acute on chronic Qualified Code(s): J96.21 - Acute and chronic respiratory failure with hypoxia Status: Acute Plan Too Young is 89 y/o man admitted with: * Acute on chronic hypoxic respiratory failure secondary to acute exacerbation of COPD. Admit to hospitalist service. Telemetry. Pulse oximetry. Supplemental O2 to keep O2 sats above 88-90 %. Continue bronchodilator therapy and IV steroids. Check procalcitonin. * s/p mechanical falls. No fractures or dislocation identified. Physiotherapy. * PAD/bilateral carotid artery disease. Continue Xarelto and statin. * GERD. Continue PPI. * Mood disorder. Continue citalopram. * HFpEF. Continue furosemide. * Essential hypertension. Not using antihypertensive meds, taking furosemide. Blood pressure is stable. Continue to monitor. 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 * H/O prostatectomy. * H/O GI bleeding. Hgb stable since April 2024. Code status: Full DVT prophylaxis: Xarelto. Patient will need hospitalization for at least 2 midnights for acute on chronic respiratory failure due acute exacerbation of COPD treatment with supplemental oxygen, bronchodilator therapy and IV steroids. Quality Stroke Does the patient have a stroke diagnosis?: No VTE Prior VTE?: No VTE Risk Level:: Medical - moderate - high VTE Device Contraindication: Treatment Not Indicated VTE Drug Contraindication: N/A - Med Ordered
[2024-09-29] VITALS (23 sets, daily range): BP systolic 88–178; BP diastolic 27–149; PULSE 64–93; RESP 12–18; TEMP 36.4–37.1; O2SAT 82–100; BMI 20.5
[2024-09-29 00:29] LABS: Procalcitonin 0.06 ng/mL
[2024-09-29 04:41] LABS: Appearance Urine Clear; Color Urine Yellow; Glucose Urine UA Negative (Negative); Leukocyte Esterase Urine Negative (Negative); Nitrite Urine Negative (Negative); PH 5.5 (5.0-9.0); Specific Gravity - Urine >= 1.030 (1.005-1.025); Urine Blood Negative (Negative); Urine Ketones Trace mg/dL (Negative); Urine Protein Trace mg/dL (Neg-Trace)
[2024-09-29 05:21] LABS: Basophils Percent Auto 0.1 % (0-2); Hematocrit 30.3 % (42.0-52.0); Hemoglobin 8.6 g/dl (14.0-18.0); Imm Gran Abs Auto 0.06 X10*3/uL (0.00-0.03); Imm Gran Pct Auto 0.6 % (0.0-0.4); Lymphocytes Absolute Auto 0.4 X10*3/uL (1.2-4.9); Lymphocytes Percent Auto 4.1 % (20-40); MANUAL DIFF FLAG SCAN; Mean Corpuscular HGB Conc 28.4 g/dl (31.0-36.0); Mean Corpuscular Hemoglobin 18.4 pg (27.0-33.0); Mean Corpuscular Volume 64.7 fL (80.0-98.0); Mean Platelet Volume 9.9 fL (9.4-12.4); Monocytes Absolute Auto 0.4 X10*3/uL (0.1-1.2); Monocytes Percent Auto 3.7 % (2-11); Neutrophils Percent Auto 91.5 % (45-73); Platelet Count 349 X10*3/uL (160-400); Red Blood Count 4.68 X10*6/uL (4.60-5.80); SCAN SMEAR FLAG 1; White Blood Count 9.8 X10*3/uL (4.8-10.8)
[2024-09-29 05:36] LABS: Anion Gap 18 (12-20); Blood Urea Nitrogen 31 mg/dL (9-16); Calcium 9.1 mg/dL (8.4-10.2); Carbon Dioxide 19 mmol/L (22-29); Chloride 107 mmol/L (96-108); Creatinine Clr Calc Pharmacy 26.6; Estimated Glomerular Filt Rate 39; Glucose Random 178 mg/dL (60-115); Magnesium 2.2 mg/dL (1.6-2.6); Potassium 4.1 mmol/L (3.3-5.1); Sodium 140 mmol/L (135-145)
[2024-09-29 05:41] LABS: SLIDE REVIEW VERIFIED
[2024-09-29] MEDS: 0.9 % Sodium Chloride Flush 3 ML SYRINGE IVFLUSH ×3 (05:48→21:12)
[2024-09-29] MEDS: Albuterol/Iprat 2.5/0.5MG 3 ML AMPUL.NEB INHALE ×4 (07:14→22:10)
[2024-09-29] MEDS: Fluticasone/Umeclidinium/Vilanterol 200/62.5/25 BLST.W.DEV 1 PUFF INHALE (07:49)
[2024-09-29] MEDS: Furosemide 20 MG TABLET PO (08:34)
[2024-09-29] MEDS: Atorvastatin Calcium 10 MG TABLET PO (08:34)
[2024-09-29] MEDS: Omeprazole 20 MG CAPSULE.DR PO (08:34)
[2024-09-29] MEDS: Escitalopram Oxalate 10 MG TABLET PO (08:34)
[2024-09-29] MEDS: methylPREDNISolone Sod Succ 40 MG/ML VIAL IVPUSH ×2 (08:35→21:12)
--- NOTE | 2024-09-29 08:48 | PC.NURSE ---
Alert. Oriented to person/place only. Skin bruised, pink, dry. Dry MM. Was sleeping w/o O2 and satting 93% . with minimal assisted movement in bed dropped to 82%. Able to sit and self feed for breakfast. Even at 90 degrees with thickened liquids did cough on eggs. No period of apnea. Seemed to clear eggs and continued eating. LS clear but dim.
--- NOTE | 2024-09-29 09:24 | PHA.MEDREC ---
Addendum entered by Romi Park belle 09/29/24 09:27: utilized claims to confirmed doses and directions for the rest. Original Note: Pharmacy Consult ? Medication Reconciliation Pharmacy has completed the medication reconciliation, spoke to patient at bedside who was able to confirm some of his medications. Patient was able to recall most meds when provided with name and sometimes how he takes it. Said he was unsure of albuterol neb solution and docusate, and the cream names. Patient said he might have neb solution so it was left as PRN and said he uses a nasal spray BID not TID as the directions say. Pt said no to OTC med use and said he thinks he took his medications yesterday.
[2024-09-29] MEDS: Rivaroxaban 2.5 MG TABLET PO ×2 (09:49→21:12)
[2024-09-29] MEDS: Lactated Ringers 1,000 ML 80 ML IVCONT ×2 (09:49→21:52)
--- NOTE | 2024-09-29 09:56 | PC.NURSE ---
Tolerated standing for Orthostatics but Sa O2 drops to 88 on 2L. Recovers quickly with rest. Needed a littl extra O2 for exertion.
--- NOTE | 2024-09-29 11:01 | PC.NURSE ---
Update to son on phone.
--- NOTE | 2024-09-29 12:14 | MHC.CM.PN ---
Addendum entered by Adenike Law 09/29/24 14:41: CORRECTION! Patient is active with [facility]. CM will follow. Original Note: CM met with Patient at bedside, in the ED and addressed IMM with him (Patient did not feel physically able to sign the IMM, but it was discussed verbally with him;original was given to Patient and a copy will be placed on the chart). Patient lives alone in a house and required no services nor DME [employer]. Patient's home O2 is supplied by [employer]. Home/self care is the goal and CM has initiated and will follow for dc planning. Patient confirmed that his HCP is his Daughter/Sharmin and either Sharmin or his Son will transport to home.PCP is Dr. Chico Bojorquez.
--- NOTE | 2024-09-29 14:00 | HO.PM.IMPN ---
Subjective Subjective Date of Service: 09/29/24 Interval History: copd , orthostasis Review of Systems sob somewhat imrpoving denies any chest pain or abd pain Physical Exam Vital Signs: Vital Signs: Last Vital Signs Temp 97.5 F 09/29/24 08:32 Pulse 80 09/29/24 13:16 Resp 18 09/29/24 13:16 BP 91/41 L 09/29/24 09:52 Pulse Ox 93 09/29/24 08:33 O2 Del Method Nasal Cannula 09/29/24 08:33 O2 Flow Rate 2 09/29/24 08:33 Oxygen Flow Rate 2 09/28/24 12:25 BMI result Body Mass Index 20.5 Appearance: Alert.? Oriented X3.? cvs: rrr, [id number] res: air enry diminashed ,has b/l exp wheezing abd: no rebound or guarding ,nt, bs present. ext pulses present , no cyanosis . neuro: axo3 , nonfocal. Objective Data Active Medications Acetaminophen (Acetaminophen 325 Mg Tablet) 975 mg PO Q6H PRN PRN Reason: Pain, Mild (Pain Scale 1-3), fever or headache Albuterol Sulfate (Albuterol Sulfate (0.083%) 2.5 Mg/3 Ml Vial.Neb) 2.5 mg INHALE Q2H PRN PRN Reason: Shortness of Breath/Wheezing Albuterol/Ipratropium (Albuterol/Iprat 2.5/0.5mg 3 Ml Ampul.Neb) 3 ml INHALE RQ4H WHILE AWAKE [facility] Last Admin: 09/29/24 13:13 Dose: 3 ml Documented By: MARKOS Atorvastatin Calcium (Atorvastatin Calcium 10 Mg Tablet) 10 mg PO DAILY [facility] Last Admin: 09/29/24 08:34 Dose: 10 mg Documented By: POLO Escitalopram Oxalate (Escitalopram Oxalate 10 Mg Tablet) 10 mg PO DAILY [facility] Last Admin: 09/29/24 08:34 Dose: 10 mg Documented By: POLO Fluticasone/Umeclidinium/Vilanterol (Fluticasone/Umeclidinium/Vilanterol 200/62.5/25 Blst.W.Dev) 1 puff INHALE RDAILY [facility] Last Admin: 09/29/24 07:49 Dose: 1 puff Documented By: LING Furosemide (Furosemide 20 Mg Tablet) 20 mg PO DAILY [facility]; Protocol Last Admin: 09/29/24 08:34 Dose: 20 mg Documented By: POLO Lactated Ringer's (Lr) 1,000 mls @ 80 mls/hr IVCONT .[id number] [facility] Last Admin: 09/29/24 09:49 Dose: 80 mls/hr Documented By: POLO Methylprednisolone Sodium Succinate (Methylprednisolone Sod Succ 40 Mg/Ml Vial) 40 mg IVPUSH Q12H [facility] Last Admin: 09/29/24 08:35 Dose: 40 mg Documented By: POLO Omeprazole (Omeprazole 20 Mg Capsule.Dr) 20 mg PO DAILY@0630 [facility] Last Admin: 09/29/24 08:34 Dose: 20 mg Documented By: POLO Rivaroxaban (Rivaroxaban 2.5 Mg Tablet) 2.5 mg PO BID [facility] Last Admin: 09/29/24 09:49 Dose: 2.5 mg Documented By: POLO Sodium Chloride (0.9 % Sodium Chloride Flush 3 Ml Syringe) 3 ml IVFLUSH QSHIFT [facility] Last Admin: 09/29/24 08:35 Dose: 3 ml Documented By: POLO Labs 09/29/24 04:57 09/29/24 04:57 Labs: Laboratory Results - last 24 hr 09/28/24 09/28/24 09/28/24 13:03 15:05 16:48 MCV MCH MCHC RDW Plt Count MPV Immature Gran % (Auto) Neut % (Auto) Lymph % (Auto) [place] % (Auto) Eos % (Auto) Baso % (Auto) Lymph # (Auto) [place] # (Auto) Eos # (Auto) Baso # (Auto) Abs Immat Gran (auto) Absolute Neuts (auto) Absolute Nucleated RBC Nucleated RBC % (auto) Smear Tech's Comments VBG pH 7.38 VBG pCO2 44 VBG pO2 44 VBG HCO3 27 H VBG O2 Saturation 63.0 VBG Base Excess 1.8 Anion Gap Estim Creat Clear Calc Estimated GFR Random Glucose Lactic Acid 1.0 Calcium Magnesium Total Creatine Kinase 297 H Troponin I High Sens 23.1 Procalcitonin 0.06 Urine Color Urine Appearance Urine pH Ur Specific [place] Urine Protein Urine Glucose (UA) Urine Ketones Urine Blood Urine Nitrite Ur Leukocyte Esterase Ethyl Alcohol < 10 09/28/24 09/29/24 09/29/24 16:55 04:34 04:57 MCV 64.7 L MCH 18.4 L MCHC 28.4 L RDW 23.0 H Plt Count 349 MPV 9.9 Immature Gran % (Auto) 0.6 H Neut % (Auto) 91.5 H Lymph % (Auto) 4.1 L [place] % (Auto) 3.7 Eos % (Auto) 0.0 Baso % (Auto) 0.1 Lymph # (Auto) 0.4 L [place] # (Auto) 0.4 Eos # (Auto) 0.0 Baso # (Auto) 0.0 Abs Immat Gran (auto) 0.06 H Absolute Neuts (auto) 9.0 H Absolute Nucleated RBC 0.000 Nucleated RBC % (auto) 0.0 Smear Tech's Comments VERIFIED VBG pH 7.39 VBG pCO2 44 VBG pO2 47 VBG HCO3 27 H VBG O2 Saturation 68.0 VBG Base Excess 2.3 Anion Gap 18 Estim Creat Clear Calc 26.6 Estimated GFR 39 Random Glucose 178 H Lactic Acid Calcium 9.1 Magnesium 2.2 Total Creatine Kinase Troponin I High Sens Procalcitonin Urine Color Yellow Urine Appearance Clear Urine pH 5.5 Ur Specific [place] >= 1.030 H Urine Protein Trace Urine Glucose (UA) Negative Urine Ketones Trace Urine Blood Negative Urine Nitrite Negative Ur Leukocyte Esterase Negative Ethyl Alcohol Assessment and Plan (1) Hypoxic respiratory failure: Status: Acute Plan 89 y/o man admitted with: Acute on chronic hypoxic respiratory failure secondary to acute exacerbation of COPD. sob seeme somewhat improving but sob with minimum excersion has b/l wheezing procalcitonin 0.06. Pulse oximetry. Supplemental O2 to keep O2 sats above 88-90 %. Continue bronchodilator therapy and IV steroids. orthostasis : encouraged for po intake jovana stockings moniter orthostasis qshift s/p mechanical falls. No fractures or dislocation identified. Physiotherapy. PAD/bilateral carotid artery disease. Continue Xarelto and statin. GERD. Continue PPI. Mood disorder. Continue citalopram. HFpEF. Continue furosemide. Essential hypertension. Not using antihypertensive meds, taking furosemide. Blood pressure is stable. Continue to monitor. Right common iliac artery aneurysm (2.1 x 1.3 cm), unchanged. H/O GI bleeding. Hgb stable since April 2024. DVT prophylaxis: Xarelto. ongoing hospitalization need for acute on chronic respiratory failure due acute exacerbation of COPD treatment with supplemental oxygen, bronchodilator therapy and IV steroids, repiratory status not optimal yet . Quality Stroke Does the patient have a stroke diagnosis?: No VTE Prior VTE?: No VTE Risk Level:: Medical - moderate - high VTE Device Contraindication: Treatment Not Indicated VTE Drug Contraindication: N/A - Med Ordered
--- NOTE | 2024-09-29 14:06 | MHC.CLN ---
RE: CONSULT PT REPORTS 35# WT LOSS X 2 MONTHS WT HX FOLLOWS: 61.2KG (09/29/24) 60.8KG (08/30/24) 63.5KG (08/03/24) PT'S WT STABLE AND WITHIN UBW RANGE NO EVIDENCE OF WT LOSS PER WT HX AND NOTED PT WITH HX CHF AND USES DIURETICS DAILY WHICH CAN CONTRIBUTE TO WT FLUCTUATIONS CONTINUE CARDIAC DIET MONITOR PO INTAKE CLOSELY
[2024-09-29] MEDS: rOPINIRole HCL 2 MG TABLET PO (21:12)
[2024-09-29] MEDS: Melatonin 3 MG TABLET 6 MG PO (21:19)
[2024-09-29] MEDS: Ipratropium Bromide Nas 0.06 % 15 ML SPRAY 2 SPRAY NOSTRIL-B (21:47)
[2024-09-29] MEDS: Mupirocin 2 % Oint 22 GM TUBE 1 APPL TOPICAL (21:47)
[2024-09-29] MEDS: Acetaminophen 325 MG TABLET 975 MG PO (21:50)
[2024-09-30] VITALS (15 sets, daily range): BP systolic 126–189; BP diastolic 59–77; PULSE 62–88; RESP 16–20; TEMP 36.6–37.2; O2SAT 85–99
[2024-09-30] MEDS: Omeprazole 20 MG CAPSULE.DR PO (06:24)
[2024-09-30] MEDS: Albuterol/Iprat 2.5/0.5MG 3 ML AMPUL.NEB INHALE ×4 (07:53→19:39)
[2024-09-30] MEDS: Fluticasone/Umeclidinium/Vilanterol 200/62.5/25 BLST.W.DEV 1 PUFF INHALE (08:19)
--- NOTE | 2024-09-30 08:32 | ECG_ITS ---
Test Reason : CP Blood Pressure : / mmHG Vent. Rate : 063 BPM Atrial Rate : 063 BPM P-R Int : 158 ms QRS Dur : 104 ms QT Int : 470 ms P-R-T Axes : 038 069 068 degrees QTc Int : 480 ms Sinus rhythm with Premature atrial complexes Minimal voltage criteria for LVH, may be normal variant ( Sokolow-Mederos ) Prolonged QT Abnormal ECG When compared with ECG of 30-SEP-2024 08:31, Sinus rhythm has replaced Atrial fibrillation Referred By: Daniel Willett Electronically Signed By:LORENA TELLO MD
[2024-09-30] MEDS: Escitalopram Oxalate 10 MG TABLET PO (08:57)
[2024-09-30] MEDS: Atorvastatin Calcium 10 MG TABLET PO (08:57)
[2024-09-30] MEDS: Furosemide 20 MG TABLET PO (08:57)
[2024-09-30] MEDS: Aspirin Enteric Coated 81 MG TABLET.DR PO (08:57)
[2024-09-30] MEDS: Rivaroxaban 2.5 MG TABLET PO ×2 (08:57→21:25)
[2024-09-30] MEDS: methylPREDNISolone Sod Succ 40 MG/ML VIAL IVPUSH (08:58)
[2024-09-30] MEDS: Mupirocin 2 % Oint 22 GM TUBE 1 APPL TOPICAL ×2 (08:59→21:33)
[2024-09-30] MEDS: Ipratropium Bromide Nas 0.06 % 15 ML SPRAY 2 SPRAY NOSTRIL-B ×2 (09:00→21:33)
[2024-09-30] MEDS: Lactated Ringers 1,000 ML 80 ML IVCONT ×2 (11:11→23:20)
[2024-09-30] MEDS: Acetaminophen 325 MG TABLET 975 MG PO ×3 (11:12→21:26)
--- NOTE | 2024-09-30 11:26 | MHC.CM.PN ---
EMR REVIEWED, PT W/COPD EXAC, P.T. RECOMMENDING STR, PT AGREEABLE TO GO HOWEVER REQUESTED CM CONTACT HIS DTR/HCP ESTEFANIA WHO IS A NURSE TO DETERMINE PREFERENCES, CM CONTACTED [facility] AT 11:20AM AT NUMBER ON FILE, PER ESTEFANIA THEY HAVE NO PREFERENCES ON FACILITIES AND CM WILL PLACE BROAD LOCAL REFERRAL AND CONT TO MONITOR DC NEEDS.
[2024-09-30] MEDS: Tamsulosin HCL 0.4 MG CAPSULE PO (13:31)
--- NOTE | 2024-09-30 13:31 | P.PNIM_ITS ---
Subjective Subjective Date of Service: 09/30/24 Interval History: copd execerebation Review of Systems sob seems improved to baseline has urinary retention mental status seems to be baseline Physical Exam 2 Vital Signs: Vital Signs: Last Vital Signs Temp 98.0 F 09/30/24 11:00 Pulse 62 09/30/24 11:47 Resp 18 09/30/24 11:47 BP 153/67 H 09/30/24 11:00 Pulse Ox 99 09/30/24 11:00 O2 Del Method Nasal Cannula 09/30/24 11:00 O2 Flow Rate 2 09/30/24 11:00 Oxygen Flow Rate 2 09/28/24 12:25 BMI result Body Mass Index 20.5 Appearance: Alert.? Oriented X3.? cvs: rrr, [id number] res: air enry diminashed ,has b/l exp wheezing abd: no rebound or guarding ,nt, bs present. ext pulses present , no cyanosis . neuro: axo3 , nonfocal. Objective Data Active Medications Acetaminophen (Acetaminophen 325 Mg Tablet) 975 mg PO Q6H [facility] Last Admin: 09/30/24 11:12 Dose: 975 mg Documented By: LIZ Albuterol Sulfate (Albuterol Sulfate (0.083%) 2.5 Mg/3 Ml Vial.Neb) 2.5 mg INHALE Q2H PRN PRN Reason: Shortness of Breath/Wheezing Albuterol/Ipratropium (Albuterol/Iprat 2.5/0.5mg 3 Ml Ampul.Neb) 3 ml INHALE RQ4H WHILE AWAKE [facility] Last Admin: 09/30/24 11:43 Dose: 3 ml Documented By: SAMSON Aspirin (Aspirin Enteric Coated 81 Mg Tablet.Dr) 81 mg PO DAILY [facility] Last Admin: 09/30/24 08:57 Dose: 81 mg Documented By: LIZ Atorvastatin Calcium (Atorvastatin Calcium 10 Mg Tablet) 10 mg PO DAILY [facility] Last Admin: 09/30/24 08:57 Dose: 10 mg Documented By: LIZ Docusate Sodium (Docusate Sodium 100 Mg Capsule) 100 mg PO DAILY PRN PRN Reason: Constipation Escitalopram Oxalate (Escitalopram Oxalate 10 Mg Tablet) 10 mg PO DAILY [facility] Last Admin: 09/30/24 08:57 Dose: 10 mg Documented By: LIZ Fluticasone/Umeclidinium/Vilanterol (Fluticasone/Umeclidinium/Vilanterol 200/62.5/25 Blst.W.Dev) 1 puff INHALE RDAILY [facility] Last Admin: 09/30/24 08:19 Dose: 1 puff Documented By: SAMSON Furosemide (Furosemide 20 Mg Tablet) 20 mg PO DAILY [facility]; Protocol Last Admin: 09/30/24 08:57 Dose: 20 mg Documented By: LIZ Lactated Ringer's (Lr) 1,000 mls @ 80 mls/hr IVCONT .[id number] [facility] Last Admin: 09/30/24 11:11 Dose: 80 mls/hr Documented By: LIZ Ipratropium [place] (Ipratropium [place] Adonis 0.06 % 15 Ml [place]) 2 spray NOSTRIL-B BID [facility] Last Admin: 09/30/24 09:00 Dose: 2 spray Documented By: LIZ Melatonin (Melatonin 3 Mg Tablet) 6 mg PO BEDTIME PRN PRN Reason: Insomnia Last Admin: 09/29/24 21:19 Dose: 6 mg Documented By: BARBARA Methylprednisolone Sodium Succinate (Methylprednisolone Sod Succ 40 Mg/Ml Vial) 40 mg IVPUSH Q12H [facility] Last Admin: 09/30/24 08:58 Dose: 40 mg Documented By: LIZ Mupirocin (Mupirocin 2 % Oint 22 Gm Tube) 1 appl TOPICAL BID [facility]; Protocol Last Admin: 09/30/24 08:59 Dose: 1 appl Documented By: LIZ Omeprazole (Omeprazole 20 Mg Capsule.Dr) 20 mg PO DAILY@0630 [facility] Last Admin: 09/30/24 06:24 Dose: 20 mg Documented By: BARBARA Rivaroxaban (Rivaroxaban 2.5 Mg Tablet) 2.5 mg PO BID [facility] Last Admin: 09/30/24 08:57 Dose: 2.5 mg Documented By: LIZ Ropinirole HCl (Ropinirole Hcl 2 Mg Tablet) 2 mg PO BEDTIME [facility] Last Admin: 09/29/24 21:12 Dose: 2 mg Documented By: BARBARA Sodium Chloride (0.9 % Sodium Chloride Flush 3 Ml Syringe) 3 ml IVFLUSH QSHIFT [facility] Last Admin: 09/30/24 08:56 Dose: Not Given Documented By: LIZ Non-Admin Reason: IV Running Tamsulosin HCl (Tamsulosin Hcl 0.4 Mg Capsule) 0.4 mg PO DAILY [facility] Triamcinolone Acetonide (Triamcinolone Acet 0.5 % Cream 15 Gm Tube) 1 appl TOPICAL DAILY [facility] Last Admin: 09/30/24 09:02 Dose: Not Given Documented By: LIZ Non-Admin Reason: Med Not Available Labs 09/29/24 04:57 09/29/24 04:57 Microbiology Microbiology Results: Microbiology 09/28/24 17:26 Blood Culture - Preliminary Blood - Venous No growth after 24 hours. 09/28/24 17:20 Blood Culture - Preliminary Blood - Venous No growth after 24 hours. Assessment and Plan (1) Hypoxic respiratory failure: Status: Acute Plan 89 y/o man admitted with: Acute on chronic hypoxic respiratory failure secondary to acute exacerbation of COPD. sob seems improving procalcitonin 0.06. Pulse oximetry. Supplemental O2 to keep O2 sats above 88-90 %. Continue bronchodilator therapy and IV steroids. orthostasis : encouraged for po intake jovana stockings moniter orthostasis qshift s/p mechanical falls. No fractures or dislocation identified. Physiotherapy. PAD/bilateral carotid artery disease. Continue Xarelto and statin. GERD. Continue PPI. Mood disorder. Continue citalopram. HFpEF. Continue furosemide. Essential hypertension. Not using antihypertensive meds, taking furosemide. Blood pressure is stable. Continue to monitor. Right common iliac artery aneurysm (2.1 x 1.3 cm), unchanged. H/O GI bleeding. Hgb stable since April 2024. urinary retention pvr /staright cath added flomax urology eval. DVT prophylaxis: Xarelto. ongoing hospitalization : copd excerebation improving -on po steriods , also need rehab placement Quality Stroke Does the patient have a stroke diagnosis?: No VTE Prior VTE?: No VTE Risk Level:: Medical - moderate - high VTE Device Contraindication: Treatment Not Indicated VTE Drug Contraindication: N/A - Med Ordered
--- NOTE | 2024-09-30 13:39 | P.CDIM_ITS ---
PROVIDER RESPONSE TEXT: To clarify, the appropriate diagnosis supported by the clinical indicators: Other (explain): no encepahlopathy QUERY TEXT: PHYSICIAN'S DOCUMENTATION REQUEST Date of Query: 09/30/2024 08:16 AM EST Patient Name: Too Young Admit Date: 09/29/2024 Dear Liz Del Valle MD, A review of the medical record indicates additional documentation may be needed. Please review below and update the documentation accordingly. Clinical Indicators: Ed 09/28 - Altered mental status, cannot provide much information, unclear why he came to hospital. Tried to walk out, he is altered on Ed Doctor's exam, frail. Patient's son said he takes alot of OTC meds to sleep. Clinical impression: Acute encephalopathy Based on the above, could you clarify if any of the following is the most likely etiology of the alte red mental status present on arrival: Encephalopathy metabolic, toxic, hypertensive, etc. Altered mental status due to Specify known or suspected etiology or unknown Other (explain) Clinically unable to determine (explain) Thank you, Yael Akins, CCS, CDIS Use of terms such as suspected, likely, concern for, or probable (associated with a specific diagnosi s that is being evaluated, monitored, or treated as if it exists) are acceptable and can be coded in the inpatient se tting, when documented at the time of discharge. Please use your independent medical judgment in providing your response. THIS QUERY IS PART OF THE PERMANENT MEDICAL RECORD
[2024-09-30] MEDS: predniSONE 20 MG TABLET 40 MG PO (15:14)
--- OUTSIDE RECORDS SUMMARY | 2024-09-30 15:34 | XMS_ITS ---
Author Name [facility] Organization Unknown History of Medication Use Medication Directions Dispensed Refills Start Date End Date Stat albuterol (PROVENTIL HFA; VENTOLIN HFA) 108 (90 Base) MCG/ACT inhaler INHALE 2 PUFFS EVERY 4 TO 6 HOURS NEEDED FOR SHORTNESS OF BREATH OR WHEEZING FOR 60 DAYS 09/25/2022 active aspirin 81 MG chewable tablet Chew 1 tablet (81 mg total). 07/19/2022 aborted cholecalciferol (CHOLECALCIFEROL) 25 MCG (1000 UT) tablet Take 1 tablet (1,000 Units total) by mouth daily. 09/25/2022 active rOPINIRole (REQUIP) 1 MG tablet TAKE 1 TALET BY MOUTH 1 TO 3 HOURS BEFORE BEDTIME 09/25/2022 active citalopram (CeleXA) 20 MG tablet Take 1 tablet (20 mg total) by mouth daily. 07/19/2022 active atorvastatin (LIPITOR) 10 MG tablet Take 1 tablet (10 mg total) by mouth daily. 09/25/2022 active oxybutynin (DITROPAN XL) 15 MG 24 hr tablet Take by mouth. 07/19/2022 active naproxen sodium (ALEVE) 220 mg tablet 1 tablet with food or milk as needed 07/19/2022 active ferrous sulfate 325 (65 FE) MG tablet Take 1 tablet (325 mg total) by mouth daily. 01/31/2023 active oxybutynin (DITROPAN XL) 15 MG 24 hr tablet Take by mouth. 07/19/2022 active fluticasone (FloNASE) 50 mcg/spray nasal spray SPRAY 1 SPRAY INTO EACH NOSTRIL ONCE DAILY 07/19/2022 active Xarelto 2.5 MG tablet TAKE 1 TABLET BY MOUTH TWICE A DAY 09/27/2022 active fluticasone-umeclidin ium-vilanterol (TRELEGY ELLIPTA) 200-62.5-25 mcg/act inhaler Inhale 1 puff daily. 09/25/2022 active traMADol (ULTRAM) 50 MG tablet TAKE 1/2 TABLET BY MOUTH TWICE DAILY NEEDED FOR 7 DAYS 09/25/2022 active azithromycin (ZITHROMAX) 250 MG tablet TAKE 1 TABLET ORALLY DAILY FOR 4 DAYS START ON DAY 2 OF THERAPY 01/31/2023 active betamethasone dipropionate augmented (DIPROLENE-AF) 0.05 % cream Apply topically daily. 07/19/2022 active Nebulizer Misc Nebulizer with all supplies, mask version instead of nasal cannula for oxygen, [place] 99, dx:J44.9 07/19/2022 active fluticasone-umeclidin ium-vilanterol (TRELEGY ELLIPTA) 200-62.5-25 mcg/act inhaler Inhale 1 puff daily. 06/07/2023 active sildenafil (VIAGRA) 100 MG tablet TAKE 1/2 OR 1 TABLET BY MOUTH NEEDED ONCE A DAY.. 07/19/2022 active rivaroxaban (Xarelto) 2.5 MG tablet Take 1 tablet (2.5 mg total) by mouth 2 (two) times a day. 07/19/2022 aborted atorvastatin (LIPITOR) 40 MG tablet Take by mouth. 07/19/2022 active ipratropium (ATROVENT) 0.06 % nasal spray 2 SPRAYS EACH NOSTRIL 3 TIMES A DAY 07/19/2022 active OMEprazole (PriLOSEC) 20 MG capsule 07/19/2022 active umeclidinium-vilanter ol (umeclidinium-vilante rol) 62.5-25 MCG/INH inhaler INHALE 1 PUFF BY MOUTH EVERY DAY 07/19/2022 aborted lisinopril (PRINIVIL,ZeSTRIL) 5 MG tablet Take 1 tablet (5 mg total) by mouth daily. 07/19/2022 active albuterol (PROVENTIL) (0.083%) 2.5 mg/3 mL nebulizer solution Take 3 mL (2.5 mg total) by nebulization every 4 (four) hours as needed for wheezing or shortness of breath. 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
[2024-09-30] MEDS: rOPINIRole HCL 2 MG TABLET PO (21:25)
[2024-09-30] MEDS: 0.9 % Sodium Chloride Flush 3 ML SYRINGE IVFLUSH (21:26)
[2024-09-30] MEDS: Melatonin 3 MG TABLET 6 MG PO (21:30)
[2024-10-01] VITALS (15 sets, daily range): BP systolic 131–164; BP diastolic 64–74; PULSE 63–86; RESP 12–20; TEMP 36.7–37.2; O2SAT 90–95
[2024-10-01] MEDS: Omeprazole 20 MG CAPSULE.DR PO (05:41)
[2024-10-01] MEDS: Acetaminophen 325 MG TABLET 975 MG PO ×2 (05:41→11:08)
[2024-10-01] MEDS: Albuterol/Iprat 2.5/0.5MG 3 ML AMPUL.NEB INHALE ×2 (07:55→11:08)
[2024-10-01] MEDS: Fluticasone/Umeclidinium/Vilanterol 200/62.5/25 BLST.W.DEV 1 PUFF INHALE (07:55)
[2024-10-01] MEDS: Rivaroxaban 2.5 MG TABLET PO (09:05)
[2024-10-01] MEDS: Atorvastatin Calcium 10 MG TABLET PO (09:05)
[2024-10-01] MEDS: predniSONE 20 MG TABLET 40 MG PO (09:05)
[2024-10-01] MEDS: Escitalopram Oxalate 10 MG TABLET PO (09:05)
[2024-10-01] MEDS: Furosemide 20 MG TABLET PO (09:05)
[2024-10-01] MEDS: Tamsulosin HCL 0.4 MG CAPSULE PO (09:05)
[2024-10-01] MEDS: Aspirin Enteric Coated 81 MG TABLET.DR PO (09:05)
[2024-10-01] MEDS: Ipratropium Bromide Nas 0.06 % 15 ML SPRAY 2 SPRAY NOSTRIL-B (09:06)
[2024-10-01] MEDS: 0.9 % Sodium Chloride Flush 3 ML SYRINGE IVFLUSH (09:06)
[2024-10-01] MEDS: Mupirocin 2 % Oint 22 GM TUBE 1 APPL TOPICAL (09:06)
--- NOTE | 2024-10-01 10:56 | MHC.CM.PN ---
Pt is medically cleared for discharge to [facility] at [facility] on [address] today via BLS/Lucrecia.
--- NOTE | 2024-10-01 11:34 | P.DS_ITS ---
DS: Providers Provider Date of Service: 10/01/24 Date of admission: 09/28/24 21:34 Date of discharge: 10/01/24 Primary care physician: Chico Bojorquez MD Consults: 09/30/24 13:06 Consult to Urology Routine Consulting Provider: [facility] Reason for consultation: urinary retention Has provider been notified: No Attending physician on discharge: Liz Del Valle Discharging clinician: Liz Del Valle DS: Diagnosis Discharge Diagnosis (1) Hypoxic respiratory failure: Status: Acute DS: Summary Hospital Course Hospital Course: HPI:89 years old man with past medical history significant for COPD/chronic hypoxic respiratory failure -on home oxygen 2 L/min, PAD on Xarelto, CHF and hypertension was brought to the emergency department after he sustained a mechanical fall. He landed on the right shoulder. HI was obtained provider and chart review as the patient is a very poor historian 2 week to provide it. Upon arrival to the emergency department it seems like he was complaining of pain to the shoulders hip and right ankle. He uses fentanyl patches. Former smoker. According to ED provider family stated that the patient recently has been given [id number] sleep aids. In the ED, he was found to have oxygen saturation 85% on 2 L/min and tachypneic. Blood pressure stable and there is no fever. Blood workup showed mild leukocytosis of 13.7 which is around his baseline. There is no lactic acidosis. Hemoglobin is also at baseline and platelets are 312. INR is 1.7. There is no electrolyte imbalances. BUN is 28 and creatinine 1.35. BNP is 365 and troponin is negative x2. VBG x2. Toxicology is negative for ETOH. COVID-19, RSV influenza are negative. Head CT scan showed no central or segmental pulmonary emboli, consolidation, pleural effusion or infiltrates. Head and C-spine CT scans showed no acute intracranial hemorrhage or mass effect; and no fractures or dislocations. Right ankle and foot x-ray showed no fractures. ECG showed normal sinus rhythm, LVH changes and no acute ischemic changes. ED tx: Solu-Medrol 60 mg IV, albuterol nebs on ceftriaxone 1 g IV. Hospital course: Acute on chronic hypoxic respiratory failure secondary to acute exacerbation of COPD-patient was started on nebs, steroids, chest x-ray seems negative: Seems to be improved with the above. Currently not short of breath and maintaining sats on his baseline oxygen. Switched to p.o. prednisone 40 mg daily for 4 days. Orthostasis: Possible related to some dehydration underlying. Patient was strongly advised for hydration, also continue Michael stocking, orthostatic precautions. Currently asymptomatic. Urinary retention: Added Flomax, and also needed Mcgarry-consider outpatient v oiding trial. Discussed with the Urology-has appointment fit 2 weeks for voiding trial. Mechanical falls -No fractures or dislocation identified. Pt recommended rehab. plan: continue floamx 0.4 mg daily and consider outpatient urology eval. Continue prednisone 40 mg daily for 4 days. Continue Michael stocking, encouraged for p.o. hydration, orthostatic precautions. Assessment and Plan coordination time spent 40 minute. Time Attestation Total time managing care of this patient today: 40 mintues. Discharge Coordination Time (in mins): 40 min Quality: Safe Use of Opioids Does Pt have an Active Cancer Diagnosis on the Problem List?: No Quality: Stroke Does the patient have a stroke diagnosis?: No Physical Exam Vital Signs: Vital Signs: Last Vital Signs Temp 98.1 F 10/01/24 10:53 Pulse 80 10/01/24 11:08 Resp 12 10/01/24 11:08 BP 138/65 10/01/24 10:53 Pulse Ox 94 10/01/24 10:53 O2 Del Method Nasal Cannula 10/01/24 10:53 O2 Flow Rate 2 10/01/24 10:53 Oxygen Flow Rate 2 09/28/24 12:25 BMI result Body Mass Index 20.5 Appearance: Alert.? Oriented X3.? cvs: rrr, [id number] res: air enry diminashed ,has b/l exp wheezing abd: no rebound or guarding ,nt, bs present. ext pulses present , no cyanosis . neuro: axo3 , nonfocal. DS: Data Data Completed and Pending Completed studies during hospitalization [Text1]: Procedures Introduction of Remdesivir Anti-infective into Peripheral Vein, Percutaneous Approach, [employer] 5 (08/02/23) Transfusion of Nonautologous Red Blood Cells into Peripheral Vein, Percutaneous Approach (08/02/23) Labs on day of discharge: Preliminary micro results at discharge 09/28/24 17:26 Blood Culture - Preliminary Blood - Venous No growth after 48 hours. 09/28/24 17:20 Blood Culture - Preliminary Blood - Venous No growth after 48 hours. Imaging Chest x-ray: Radiologist's impression: ITS Impressions Ankle X-Ray 09/28/24 12:41 IMPRESSION: No radiographic evidence of acute fracture. If persistent clinical concern/symptoms, consider follow-up imaging. Severe first MTP arthritis. Electronically signed by: Daniel Barahona MD 09/28/2024 05:27 PM EST RP Chest CT 09/28/24 12:41 IMPRESSION: 1. No acute traumatic findings in the chest, abdomen, or pelvis. 2. Moderate centrilobular emphysema. 3. 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 Electronically signed by: Spencer Layne MD 09/28/2024 03:39 PM EST RP Head CT 09/28/24 12:41 IMPRESSION: HEAD: No acute intracranial hemorrhage or mass effect. Diffuse atrophy and chronic microvascular ischemic disease, increased when compared to the prior examination. CERVICAL SPINE: No acute fracture or subluxation. Grade 1 anterolisthesis of C4 on C5. Bony fusion of the C5 and C6 vertebral bodies. Multilevel degenerative disc disease and bilateral facet arthropathy with [id number] multilevel bilateral neural foraminal stenosis. Electronically signed by: Davon De Leon MD 09/28/2024 04:50 PM EST RP Cervical Spine CT 09/28/24 13:52 IMPRESSION: HEAD: No acute intracranial hemorrhage or mass effect. Diffuse atrophy and chronic microvascular ischemic disease, increased when compared to the prior examination. CERVICAL SPINE: No acute fracture or subluxation. Grade 1 anterolisthesis of C4 on C5. Bony fusion of the C5 and C6 vertebral bodies. Multilevel degenerative disc disease and bilateral facet arthropathy with [id number] multilevel bilateral neural foraminal stenosis. Electronically signed by: Davon De Leon MD 09/28/2024 04:50 PM EST RP Foot X-Ray 09/28/24 14:00 IMPRESSION: No radiographic evidence of acute fracture. If persistent clinical concern/symptoms, consider follow-up imaging. Severe first MTP arthritis. Electronically signed by: Daniel Barahona MD 09/28/2024 05:27 PM EST RP Abdomen/Pelvis CT 09/28/24 14:19 IMPRESSION: 1. No acute traumatic findings in the chest, abdomen, or pelvis. 2. Moderate centrilobular emphysema. 3. 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 Electronically signed by: Spencer Layne MD 09/28/2024 03:39 PM EST RP Shoulder X-Ray 09/28/24 16:12 IMPRESSION: 1. No acute abnormality. 2. Chronic rotator cuff tendon tear. 3. Degenerative changes of the glenohumeral joint. Electronically signed by: Jim Cordero MD 09/28/2024 08:17 PM EST RP Chest CTA 09/28/24 16:35 IMPRESSION: 1. No central or segmental pulmonary emboli. VTE: negative. Electronically signed by: Spencer Layne MD 09/28/2024 08:21 PM EST RP Discharge Plan Discharge Anticipated Discharge Date/Time: 10/01/24 11:21 Patient Disposition: Xfer SNF Discharge Diagnosis: copd execerebation Referrals: Michelle Hyman [Outside] - 1 Week Chico Bojorquez MD [Primary Care Provider] - 1 Week Discharge Medications: New prednisone 20 mg Tablet 40 mg PO DAILY Qty: 1 0RF tamsulosin 0.4 mg Capsule 0.4 mg PO DAILY Qty: 1 0RF Continued albuterol sulfate 2.5 mg /3 mL (0.083 %) solution for nebulization 2.5 mg inhalation Q4-6H PRN (Reason: shortness of breath or wheezing) Qty: 90 0RF Trelegy Ellipta 200-62.5-25 mcg blister with device 1 inh inhalation DAILY Qty: 60 6RF ipratropium bromide 42 mcg (0.06 %) spray,non-aerosol 2 spray intranasal BID furosemide 20 mg tablet 20 mg PO DAILY Qty: 30 0RF betamethasone dipropionate 0.05 % cream 1 appl TOPICAL DAILY mupirocin 2 % ointment 1 appl topical BID docusate sodium [Colace] 100 mg capsule 100 mg PO DAILY PRN (Reason: Constipation) albuterol sulfate 90 mcg/actuation HFA aerosol inhaler 2 puff inhalation Q4H PRN (Reason: shortness of breath or wheezing) Xarelto 2.5 mg tablet 2.5 mg PO BID ropinirole 2 mg tablet 2 mg PO BEDTIME citalopram 20 mg tablet 20 mg PO DAILY omeprazole 20 mg capsule,delayed release(DR/EC) 20 mg PO DAILY@0630 atorvastatin 10 mg tablet 10 mg PO DAILY aspirin [Adult Low Dose Aspirin] 81 mg tablet,delayed release (DR/EC) 81 mg PO DAILY Discharge Orders: Discharge Order (Routine); Ordered 10/01/24 Ordered By: Liz Del Valle Diet: Advance to usual diet Activity on Discharge: As tolerated Stand Alone Forms: Patient Portal Discharge page Print Language: Lao Care Plan Goals: Acute on chronic hypoxic respiratory failure secondary to acute exacerbation of COPD-patient was started on nebs, steroids, chest x-ray seems negative: Seems to be improved with the above. Currently not short of breath and maintaining sats on his baseline oxygen. Switched to p.o. prednisone 40 mg daily for 4 days. Orthostasis: Possible related to some dehydration underlying. Patient was strongly advised for hydration, also continue Michael stocking, orthostatic precautions. Currently asymptomatic. Urinary retention: Added Flomax, and also needed Mcgarry-consider outpatient voiding trial in 1 -2 days ,if further urinary retention consider outpatient urology evaluation. Mechanical falls -No fractures or dislocation identified. Pt recommended rehab. Health Concerns: As above. Plan of Treatment: continue floamx 0.4 mg daily and consider outpatient urology eval. Continue prednisone 40 mg daily for 4 days. Continue Michael stocking, encouraged for p.o. hydration, orthostatic precautions. Assessment: As above.
== END 2024-10-01 16:38 | disposition skilled nursing facility (03) | DRG 190 ==
LOC: HO.ED 20:38 → HO.EDOVER 22:01 → HO.IMC 09-29 17:03
PROVIDERS: Physician Assistant; Admitting Provider Internal Medicine; Emergency Provider Emergency Medicine; PCP Internal Medicine; Visit Provider Internal Medicine
DX: J44.1 Chronic obstructive pulmonary disease with (acute) exacerbation (principal); J96.21 Acute and chronic respiratory failure with hypoxia; I50.32 Chronic diastolic (congestive) heart failure; I72.3 Aneurysm of iliac artery; I11.0 Hypertensive heart disease with heart failure; E86.0 Dehydration; F39 Unspecified mood [affective] disorder; K21.9 Gastro-esophageal reflux disease without esophagitis; Z20.822 Contact with and (suspected) exposure to COVID-19; Z87.891 Personal history of nicotine dependence; R33.9 Retention of urine, unspecified; Z90.79 Acquired absence of other genital organ(s); Z99.81 Dependence on supplemental oxygen; Z79.01 Long term (current) use of anticoagulants; Z79.51 Long term (current) use of inhaled steroids; Z79.82 Long term (current) use of aspirin; Z79.899 Other long term (current) drug therapy
CPT/HCPCS: 0241U; 36415; 70450; 71250; 71275; 72125; 73030; 73600; 73620; 74176; 80048; 80053; 80307; 81003; 82550; 82803; 83605; 83735; 83880; 84145; 84484; 85025; 85610; 85730; 87040; 93005; 94640; 97162; 99285; C1758; J0696; J2919; J7120; Q9967

== ENCOUNTER → 2024-09-28 12:43 | Outpatient (BNV) | payer MEDICARE, SELFPAY | PROVIDERS: Admitting Provider Internal Medicine; Emergency Provider Emergency Medicine; PCP Internal Medicine; Visit Provider Internal Medicine Cardiovascular Disease | DX: R06.02 Shortness of breath (principal) | CPT/HCPCS: 93010 ==

== ENCOUNTER 2024-09-28 21:34 | Outpatient (BNV) | payer MEDICARE, SELFPAY | END 2024-09-30 08:32 | PROVIDERS: Admitting Provider Internal Medicine; Emergency Provider Emergency Medicine; PCP Internal Medicine; Visit Provider Internal Medicine Cardiovascular Disease | DX: R94.31 Abnormal electrocardiogram [ECG] [EKG] (principal) | CPT/HCPCS: 93010 ==

== ENCOUNTER → 2024-09-28 21:34 | Outpatient (BNV) | payer MEDICARE, SELFPAY | PROVIDERS: Admitting Provider Internal Medicine; Emergency Provider Emergency Medicine; PCP Internal Medicine; Visit Provider Internal Medicine | DX: J96.21 Acute and chronic respiratory failure with hypoxia (principal) | CPT/HCPCS: 99223; 99231 ==

== ENCOUNTER 2024-10-04 05:59 | Emergency (ER) | payer MEDICARE, SELFPAY ==
[2024-10-04] VITALS (8 sets, daily range): BP systolic 150–172; BP diastolic 54–97; PULSE 62–80; RESP 16–18; TEMP 36.5–37.2; O2SAT 90–95; BMI 20.1
[2024-10-04 06:27] LABS: Basophils Percent Auto 0.1 % (0-2); Hemoglobin 7.1 g/dl (14.0-18.0); Imm Gran Pct Auto 0.5 % (0.0-0.4)
[2024-10-04 06:29] LABS: Eosinophils Absolute Auto 0.3 X10*3/uL (0.0-0.4); Eosinophils Percent Auto 2.6 % (0-4); Hematocrit 24.4 % (42.0-52.0); Imm Gran Abs Auto 0.06 X10*3/uL (0.00-0.03); Lymphocytes Absolute Auto 0.8 X10*3/uL (1.2-4.9); Lymphocytes Percent Auto 6.3 % (20-40); Mean Corpuscular HGB Conc 29.1 g/dl (31.0-36.0); Mean Corpuscular Hemoglobin 18.5 pg (27.0-33.0); Mean Platelet Volume 9.9 fL (9.4-12.4); Monocytes Absolute Auto 0.8 X10*3/uL (0.1-1.2); Monocytes Percent Auto 6.4 % (2-11); Neutrophils Percent Auto 84.1 % (45-73); Red Blood Count 3.83 X10*6/uL (4.60-5.80); Red Cell Distribution Width 22.3 % (11.0-16.0)
[2024-10-04 06:33] LABS: INTERNATIONAL NORM RATIO 1.6 (0.9-1.1); Prothrombin Time 18.4 SEC (10.9-12.4)
[2024-10-04 06:34] LABS: Mean Corpuscular Volume 63.7 fL (80.0-98.0); Platelet Count 287 X10*3/uL (160-400); White Blood Count 13.1 X10*3/uL (4.8-10.8)
[2024-10-04 06:35] LABS: Partial Thromboplastin Time 37.9 SEC (26.0-36.8)
[2024-10-04 06:38] LABS: Alanine Aminotransferase 25 U/L (0-40); Alkaline Phosphatase 55 U/L (39-117); Anion Gap 8 (12-20); Aspartate Amino Transferase 27 U/L (5-37); Bilirubin Total 0.3 mg/dL (0.0-1.0); Blood Urea Nitrogen 25 mg/dL (9-16); Carbon Dioxide 25 mmol/L (22-29); Chloride 107 mmol/L (96-108); Creatinine Clr Calc Pharmacy 36.8; Estimated Glomerular Filt Rate 55; Glucose Random 141 mg/dL (60-115); Potassium 4.3 mmol/L (3.3-5.1); Sodium 136 mmol/L (135-145); Total Protein 5.1 g/dL (6.5-8.0)
--- NOTE | 2024-10-04 07:31 | ED.EPISTAXIS ---
History of Present Illness General Chief Complaint: Epistaxis Stated Complaint: nose bleed 60hrs from snf, xeralto need o2 Time Seen by Provider: 10/04/24 06:58 Source: patient, EMS and old records reviewed Mode of arrival: EMS Limitations: other (poor historian) History of Present Illness HPI Narrative: 89 yo male with PMH of COPD on chronic home O2, hypoxic resp failure, GI bleed, anemia, HTN, dCHF, PAD on xarelto here with c/o intermittent epistaxis since yesterday at [facility]. He is from [facility]. He tells me it was out the right nose but he has dried clots in each nare. He asked if it was 10pm then falls asleep. Daughter Sharmin states there is a button on nasal septum that was placed by ENT. Daughter notes he continues to pick his nose despite the button and it bleeds. She is aware he is anemic and consents to blood. Too sometimes understands what is going on and then does not. Location: Yes bilateral nares Onset/current episode: Yes day(s) (1) Duration: Yes now resolved Pertinent past history: Yes history of previous nose bleed Context: Yes history of previous nose bleed and Yes digital trauma Treatment prior to arrival: Yes nose pinching and Yes stuff nose with tissue Related Data Home Medications ?Medication ?Instructions ?Recorded ?Confirmed aspirin 81 mg tablet,delayed 81 mg PO DAILY 02/22/21 09/29/24 release (Adult Low Dose Aspirin) atorvastatin 10 mg tablet 10 mg PO DAILY 02/22/21 09/28/24 citalopram 20 mg tablet 20 mg PO DAILY 02/22/21 09/28/24 omeprazole 20 mg capsule,delayed 20 mg PO DAILY@0630 02/22/21 09/29/24 release ipratropium bromide 42 mcg (0.06 2 spray intranasal BID 08/02/23 09/29/24 %) nasal spray rivaroxaban 2.5 mg tablet (Xarelto) 2.5 mg PO BID 08/02/23 09/28/24 ropinirole 2 mg tablet 2 mg PO BEDTIME 08/02/23 09/29/24 betamethasone dipropionate 0.05 % 1 appl topical DAILY 08/04/24 09/29/24 topical cream mupirocin 2 % topical ointment 1 appl topical BID 09/28/24 09/29/24 albuterol sulfate 90 mcg/actuation 2 puff inhalation Q4H PRN 09/29/24 09/29/24 aerosol inhaler shortness of breath or wheezing docusate sodium 100 mg capsule 100 mg PO DAILY PRN Constipation 09/29/24 09/29/24 (Colace) Previous Rx's ?Medication ?Instructions ?Recorded albuterol sulfate 2.5 mg/3 mL 2.5 mg (3 mL) inhalation Q4-6H PRN 05/28/23 (0.083 %) solution for nebulization shortness of breath or wheezing #90 mL furosemide 20 mg tablet 20 mg PO DAILY #30 tabs 08/08/23 fluticasone fur. 200 mcg-umeclid 1 inh inhalation DAILY #60 ea 01/30/24 62.5 mcg-vilant 25 mcg inhalat.powder (Trelegy Ellipta) prednisone 20 mg tablet 40 mg (2 x 20 mg) PO DAILY #1 tab 10/01/24 tamsulosin 0.4 mg capsule 0.4 mg PO DAILY #1 cap 10/01/24 Allergies Allergy/AdvReac Type Severity Reaction Status Date / Time No Known Allergies Allergy Unknown NOT Verified 10/04/24 06:11 APPLICABLE Review of Systems Review of Systems: Constitutional : No Fever, No Chills ENT/Mouth : No Ear Pain, No Nasal Congestion, positive nose bleed Eyes: No Eye Pain, No Swelling, No Redness Cardiovascular : No Chest Pain, No SOB Respiratory : No Cough, No Sputum Gastrointestinal : No Nausea, No Vomiting, No Diarrhea Genitourinary : No Dysuria, No Hematuria Musculoskeletal : No joint pain, No Myalgias Skin : No Skin Lesions, No rash Neuro : No Weakness, No Numbness, No headache All other systems reviewed and are negative PMFSH Past Medical History Attestation statement: The following information was validated with the patient. Source: old records reviewed Medical History COPD (chronic obstructive pulmonary disease) PAD (peripheral artery disease) CHF (congestive heart failure) HTN (hypertension) Bilateral carotid artery disease Surgical History Hx of prostatectomy Hx of hernia repair Hx of rotator cuff surgery Family History Family History Father CVD (cardiovascular disease) Mother No problems noted. Social History Social History Household Members: None Housing: House Do you presently have visiting nurse or other home services: Yes Alcohol intake: former Patient Tobacco Use Status: Former Tobacco user Cigarette Packs Per Day: 2 Cigarettes Per Day: 40.0 Smoked in Last 30 Days: No Use of substances other than those prescribed or required for medical reasons: No Advance Directives: No Advance Directives Information Provided: Yes Do you have a plan to hurt others: No Plan service: No Physical Exam Vital Signs: Vital Signs: Last Vital Signs Temp 98.9 F 10/04/24 12:08 Pulse 62 10/04/24 12:08 Resp 18 10/04/24 12:03 BP 156/97 H 10/04/24 12:03 Pulse Ox 95 10/04/24 12:00 O2 Del Method Oxymask 10/04/24 12:00 O2 Flow Rate 1 10/04/24 12:00 BMI result Body Mass Index 20.1 Appearance: Alert. Oriented X2. No acute distress. Eyes: Pupils equal, round and reactive to light. ENT: Pharynx normal. no blood noted posteriorly, dried blood with beefy red septum Neck: Normal inspection. Neck supple. CVS: Normal heart rate and rhythm. Pulses normal. Respiratory: No respiratory distress. Breath sounds normal. Abdomen: Soft and nontender. Skin: Skin warm and dry. pale skin color. Normal skin turgor. Extremities: No lower extremity edema. No calf ttp Neuro: Oriented X 2. No motor deficit. No sensory deficit. Course Course Course Narrative: after application of afrin and tranexamic acid he has not had any further bleeding Reevaluation(s) Reevaluation #1: patient picked his nose again with scant bleeding out L nare unclear how to stop him from picking his nose Reevaluation #2: repeat exam trickle from L button septal area - placed tranexamic acid on septum with cotton gauze he continues to pick the nose Reevaluation #3: no trickle or bleeding after last application of tranexamic acid he still touches his nose despite us asking him not to hemoglobin responded well can be discharged back to facility Additional Reevaluation(s): notified daughter of discharge - she is aware and okay with plan Medications Administered Discontinued Medications Generic Name Dose Route Start Last Admin Trade Name Pedro PRN Reason Stop Dose Admin Oxymetazoline HCl 2 spray 10/04/24 07:28 10/04/24 07:43 Oxymetazoline Hcl 0.05 % Nasal 15 Ml [place] NOSTRIL-B 10/04/24 07:29 2 spray ONCE ONE Administration Tranexamic Acid 500 mg 10/04/24 07:28 10/04/24 08:05 Tranexamic Acid 1,000 Mg/10 Ml Vial INTRANASAL 10/04/24 07:29 500 mg ONCE ONE Administration Tranexamic Acid 500 mg 10/04/24 10:35 10/04/24 10:46 Tranexamic Acid 1,000 Mg/10 Ml Vial INTRANASAL 10/04/24 10:36 500 mg ONCE ONE Administration Medical Decision Making Medical Decision Making [facility] Narrative: 89 yo male with PMH of COPD on chronic home O2, hypoxic resp failure, GI bleed, anemia, HTN, dCHF, PAD on xarelto here with c/o nose bleed x 24 hours at this time he is not bleeding and I suspect on exam given the beefy red septum he picked the button again there is no active signs of posterior hemorrhage. Will obtain labs and apply local topical measures. Daughter reports hx of sig digital trauma Differential Diagnosis Differential Diagnoses: The differential diagnosis associated with the presentation includes anemia, epistaxis Admission/Observation Consideration of admission/observation: Escalation of care including admission/observation considered responded to blood no need for packing only bleeds when he picks his nose - responded to topical therapy will DC back only on 1L oxy mask no increased O2 demands Lab Data [facility] Lab Attestation statement: I reviewed the patient's lab results. anemic 1 unit PRBC ordered 10/04/24 12:47 10/04/24 06:21 Labs: Lab Results 10/04/24 10/04/24 10/04/24 Range/Units 06:21 07:44 07:53 WBC 13.1 H (4.8-10.8) X10*3/uL RBC 3.83 L (4.60-5.80) X10*6/uL Hgb 7.1 L (14.0-18.0) g/dl Hct 24.4 L (42.0-52.0) % MCV 63.7 L (80.0-98.0) fL MCH 18.5 L (27.0-33.0) pg MCHC 29.1 L (31.0-36.0) g/dl RDW 22.3 H (11.0-16.0) % Plt Count 287 (160-400) X10*3/uL MPV 9.9 (9.4-12.4) fL Immature Gran % (Auto) 0.5 H (0.0-0.4) % Neut % (Auto) 84.1 H (45-73) % Lymph % (Auto) 6.3 L (20-40) % Ceiba % (Auto) 6.4 (2-11) % Eos % (Auto) 2.6 (0-4) % Baso % (Auto) 0.1 (0-2) % Lymph # (Auto) 0.8 L (1.2-4.9) X10*3/uL Ceiba # (Auto) 0.8 (0.1-1.2) X10*3/uL Eos # (Auto) 0.3 (0.0-0.4) X10*3/uL Baso # (Auto) 0.0 (0.0-0.2) X10*3/uL Abs Immat Gran (auto) 0.06 H (0.00-0.03) X10*3/uL Absolute Neuts (auto) 11.0 H (2.0-8.3) x10*3/uL Absolute Nucleated RBC 0.000 (0.0-0.012) X10*3/uL Nucleated RBC % (auto) 0.0 (0.0-0.2) /100WBC PT 18.4 H (10.9-12.4) SEC INR 1.6 H (0.9-1.1) APTT 37.9 H (26.0-36.8) SEC VBG pH 7.40 (7.32-7.43) VBG pCO2 46 mmHg VBG pO2 59 mmHg VBG HCO3 28 H (22-26) mmol/L VBG O2 Saturation 85.0 % VBG Base Excess 3.6 mmol/L Sodium 136 (135-145) mmol/L Potassium 4.3 (3.3-5.1) mmol/L Chloride 107 (96-108) mmol/L Carbon Dioxide 25 (22-29) mmol/L Anion Gap 8 L (12-20) BUN 25 H (9-16) mg/dL Creatinine 1.25 (0.5-1.4) mg/dL Estim Creat Clear Calc 36.8 Estimated GFR 55 Random Glucose 141 H (60-115) mg/dL Calcium 8.0 L D (8.4-10.2) mg/dL Total Bilirubin 0.3 (0.0-1.0) mg/dL AST 27 (5-37) U/L ALT 25 (0-40) U/L Alkaline Phosphatase 55 (39-117) U/L Total Protein 5.1 L (6.5-8.0) g/dL Albumin 3.0 L (3.5-5.0) g/dL Blood Type O Positive Antibody Screen NEGATIVE Crossmatch See Detail 10/04/24 Range/Units 12:47 WBC 14.9 H (4.8-10.8) X10*3/uL RBC 4.50 L (4.60-5.80) X10*6/uL Hgb 8.9 L D (14.0-18.0) g/dl Hct 30.5 L D (42.0-52.0) % MCV 67.8 L (80.0-98.0) fL MCH 19.8 L (27.0-33.0) pg MCHC 29.2 L (31.0-36.0) g/dl RDW 24.8 H (11.0-16.0) % Plt Count 288 (160-400) X10*3/uL MPV Not Reportable (9.4-12.4) fL Immature Gran % (Auto) (0.0-0.4) % Neut % (Auto) (45-73) % Lymph % (Auto) (20-40) % Ceiba % (Auto) (2-11) % Eos % (Auto) (0-4) % Baso % (Auto) (0-2) % Lymph # (Auto) (1.2-4.9) X10*3/uL Ceiba # (Auto) (0.1-1.2) X10*3/uL Eos # (Auto) (0.0-0.4) X10*3/uL Baso # (Auto) (0.0-0.2) X10*3/uL Abs Immat Gran (auto) (0.00-0.03) X10*3/uL Absolute Neuts (auto) (2.0-8.3) x10*3/uL Absolute Nucleated RBC 0.000 (0.0-0.012) X10*3/uL Nucleated RBC % (auto) 0.0 (0.0-0.2) /100WBC PT (10.9-12.4) SEC INR (0.9-1.1) APTT (26.0-36.8) SEC VBG pH (7.32-7.43) VBG pCO2 mmHg VBG pO2 mmHg VBG HCO3 (22-26) mmol/L VBG O2 Saturation % VBG Base Excess mmol/L Sodium (135-145) mmol/L Potassium (3.3-5.1) mmol/L Chloride (96-108) mmol/L Carbon Dioxide (22-29) mmol/L Anion Gap (12-20) BUN (9-16) mg/dL Creatinine (0.5-1.4) mg/dL Estim Creat Clear Calc Estimated GFR Random Glucose (60-115) mg/dL Calcium (8.4-10.2) mg/dL Total Bilirubin (0.0-1.0) mg/dL AST (5-37) U/L ALT (0-40) U/L Alkaline Phosphatase (39-117) U/L Total Protein (6.5-8.0) g/dL Albumin (3.5-5.0) g/dL Blood Type Antibody Screen Crossmatch Independent Historian Clinical information obtained from an independent historian. History obtained from or confirmed by: EMS and Other daughter HCP External Record Review External record reviewed: Inpatient record and Outpatient record Critical Care Time Critical Care Time Critical Care Time: Yes Total Critical Care Time: 60 Attestation: repeat labs, blood transfusion, frequent bedside reassessments I attest to this time spent taking care of the patient Discharge Plan Discharge Clinical Impression: Acute on chronic anemia, Acute anterior epistaxis, Epistaxis Patient Disposition: Xfer Inpatient Rehab Fac Transfer Details: BACK TO REHAB AT [facility][1] Instructions: Nosebleed (ED), Anemia (ED), Blood Transfusion (DC) Additional Instructions: did give one unit of blood - was 7.1 now 8.9 no increased O2 demands he will not stop picking his nose we applied afrin and tranexamic acid. He did not require cautery or packing. His bleeding is from the button area on the septum. He only had a trickle after picking his nose. Please follow up with his ENT and encourage him not to pick his nose Prescriptions: No Action albuterol sulfate 2.5 mg /3 mL (0.083 %) solution for nebulization 2.5 mg inhalation Q4-6H PRN (Reason: shortness of breath or wheezing) Qty: 90 0RF Trelegy Ellipta 200-62.5-25 mcg blister with device 1 inh inhalation DAILY Qty: 60 6RF ipratropium bromide 42 mcg (0.06 %) spray,non-aerosol 2 spray intranasal BID furosemide 20 mg tablet 20 mg PO DAILY Qty: 30 0RF betamethasone dipropionate 0.05 % cream 1 appl TOPICAL DAILY mupirocin 2 % ointment 1 appl topical BID docusate sodium [Colace] 100 mg capsule 100 mg PO DAILY PRN (Reason: Constipation) albuterol sulfate 90 mcg/actuation HFA aerosol inhaler 2 puff inhalation Q4H PRN (Reason: shortness of breath or wheezing) prednisone 20 mg Tablet 40 mg PO DAILY Qty: 1 0RF tamsulosin 0.4 mg Capsule 0.4 mg PO DAILY Qty: 1 0RF Xarelto 2.5 mg tablet 2.5 mg PO BID ropinirole 2 mg tablet 2 mg PO BEDTIME citalopram 20 mg tablet 20 mg PO DAILY omeprazole 20 mg capsule,delayed release(DR/EC) 20 mg PO DAILY@0630 atorvastatin 10 mg tablet 10 mg PO DAILY aspirin [Adult Low Dose Aspirin] 81 mg tablet,delayed release (DR/EC) 81 mg PO DAILY Referrals: Chico Bojorquez MD [Physician] - Discharge Date/Time: 10/04/24 14:52 Print Language: Divehi
[2024-10-04] MEDS: Oxymetazoline HCl 0.05 % Nasal 15 ML SPRAY 2 SPRAY NOSTRIL-B (07:43)
[2024-10-04 07:52] LABS: Venous Blood Gas Refer to POC result
[2024-10-04 07:59] LABS: VBG Base Excess 3.6 mmol/L; VBG HCO3 28 mmol/L (22-26); VBG pCO2 46 mmHg; VBG pO2 59 mmHg
[2024-10-04] MEDS: Tranexamic Acid 1,000 MG/10 ML VIAL 500 MG INTRANASAL ×2 (08:05→10:46)
--- NOTE | 2024-10-04 10:13 | PC.NURSE ---
Assumed care of patient at 0700. Patient alert but confused at times. Chronic Mcgarry in place draining yellow urine. Nose bleed had stopped since receiving patient, Afrin and TXA given as ordered. Labs obtained as ordered, RBCs infusing as ordered for low H&H. Oxymask in place at 1L. Denies pain, resting comfortably at this time.
--- NOTE | 2024-10-04 10:47 | PC.NURSE ---
Left nostril nose bleed noted, MD made aware and at bedside to assess. TXA ordered and given by MD on soaked dental roll, dental roll placed by MD to left nostril.
[2024-10-04 12:55] LABS: Mean Corpuscular Volume 67.8 fL (80.0-98.0); Red Cell Distribution Width 24.8 % (11.0-16.0)
[2024-10-04 12:57] LABS: Hematocrit 30.5 % (42.0-52.0); Hemoglobin 8.9 g/dl (14.0-18.0); Mean Corpuscular HGB Conc 29.2 g/dl (31.0-36.0); Mean Corpuscular Hemoglobin 19.8 pg (27.0-33.0); Platelet Count 288 X10*3/uL (160-400); White Blood Count 14.9 X10*3/uL (4.8-10.8)
[2024-10-04 13:02] LABS: PLT ABN DIST 1
--- NOTE | 2024-10-04 14:51 | PC.NURSE ---
Report given to Kennedi WILEY at [facility] , rpeort given to EMS, IV removed, cornejo cath bag emptied
== END 2024-10-04 14:52 ==
PROVIDERS: Emergency Provider Emergency Medicine
DX: R04.0 Epistaxis (principal); D64.9 Anemia, unspecified; J44.9 Chronic obstructive pulmonary disease, unspecified; I10 Essential (primary) hypertension; Z99.81 Dependence on supplemental oxygen; Z79.01 Long term (current) use of anticoagulants; Z79.899 Other long term (current) drug therapy
CPT/HCPCS: 36415; 80053; 82803; 85025; 85027; 85610; 85730; 86850; 86900; 86901; 86923; 99284; P9016

== ENCOUNTER 2024-11-26 09:06 | Outpatient (AMB) | payer MEDICARE, SELFPAY ==
[2024-11-26 09:08] VITALS: BP 136/72; PULSE 65; BMI 19.0
--- NOTE | 2024-11-26 09:08 | MHC.OFFVIS ---
Vital Signs 11/26/24 09:08 Height 5 ft 10 in Weight 132 lb 4.438 oz BMI 19.0 BP 136/72 Blood Pressure Location Lt brachial Position Sitting Pulse 65 Intake Visit Reasons: overdue afib Intake Note: Overdue Follow-up dx Afib with ekg feeling good Cotton Opener Required: No Manager Outpatient: Manager Outpatient Present Accompanied by: Daughter Allergies No Known Allergies Allergy (Unknown, Verified 10/04/24 06:11) NOT APPLICABLE Medication List - Last Reconciled 11/26/24 by John Gutierrez MD albuterol sulfate 90 mcg/actuation 2 puffs inhalation Q4H PRN albuterol sulfate 2.5 mg (3 mL) inhalation Q4-6H PRN aspirin (Adult Low Dose Aspirin) 81 mg PO DAILY atorvastatin 10 mg PO DAILY betamethasone dipropionate 0.05% 1 appl topical DAILY citalopram 20 mg PO DAILY docusate sodium (Colace) 100 mg PO BID PRN ozfkwdqkkro-vjxsrnbao-yfemwwns 200-62.5-25 mcg (Trelegy Ellipta) 1 inh inhalation DAILY furosemide 20 mg PO DAILY ipratropium bromide 2 sprays intranasal BID multivitamin 1 tab PO DAILY mupirocin 2% 1 appl topical BID omeprazole 20 mg PO DAILY@0630 zinc glycinate 20 mg PO DAILY HPI Comments Details: Too comes for follow-up for potential preoperative cardiovascular risk stratification for colonoscopy which is being pursued because of anemia and positive occult blood. He has since been taken off the Xarelto therapy. He has prior history of possible heart failure preserved ejection fraction, significant COPD with hypoxemic respiratory failure requiring oxygen, frailty, question atrial fibrillation, I reviewed multiple EKGs do not see any evidence of atrial fibrillation. Could have been a transient atrial fibrillation during hospitalization for COPD exacerbation. Diffuse atherosclerotic disease including bilateral carotid disease and peripheral vascular disease, labile blood pressure with history of frequent falls as well as history of orthostatic hypotension. Patient's main complaint currently is constipation. He does not drink enough fluids in the day. He has cognitive issues. He was no obvious chest pain reported but he was significant shortness of breath with activity. No clear orthopnea, PND or leg edema recently. [facility] Medical History COPD (chronic obstructive pulmonary disease) PAD (peripheral artery disease) CHF (congestive heart failure) HTN (hypertension) Bilateral carotid artery disease Surgical History Hx of prostatectomy Hx of hernia repair Hx of rotator cuff surgery Family History Father CVD (cardiovascular disease) Mother No problems noted. Social History Household Members: None Housing: House Do you presently have visiting nurse or other home services: Yes Alcohol intake: former Patient Tobacco Use Status: Former Tobacco user Cigarette Packs Per Day: 2 Cigarettes Per Day: 40.0 service: No Review of Systems Const Denies chills, Denies daytime sleepiness, Denies fatigue, Denies fever(s), Denies frequent falls, Denies poor appetite, Denies snoring, Denies stops breathing during sleep, Denies weakness, Denies weight gain and Denies weight loss Eyes Denies loss of vision ENT Denies dizziness and Denies hearing loss Card Denies chest pain, Denies claudication, Denies leg edema, Denies lightheadedness, Denies palpitations, Denies dyspnea, Denies dyspnea on exertion and Denies orthopnea Resp Denies cough, Denies excessive phlegm production, Denies dyspnea, Denies dyspnea on exertion, Denies snoring and Denies wheezing GI Denies abdominal pain, Denies hematochezia, Denies change in bowel habits, Denies nausea and Denies vomiting Denies dysuria and Denies urinary frequency Musc Denies arthralgias, Denies muscle weakness, Denies numbness and Denies other (frequent falls) Skin/Breast Denies nail changes and Denies rash Neuro Denies Abnormal speech present, Denies dizziness, Denies frequent falls, Denies loss of vision, Denies memory loss, Denies numbness and Denies weakness Psych Denies depression and Denies memory loss Endo Denies fatigue and Denies palpitations Denis/Lymph Reports easy bruising and Reports other (anemia) Aller/Immun Denies wheezing Physical Exam Vital Signs: Last Vital Signs Pulse 65 11/26/24 09:08 BP 136/72 11/26/24 09:08 BMI result Body Mass Index 19.0 Const General: cooperative, comfortable, alert and awake Nutritional Appearance: underweight and other (Frail elderly gentleman) Orientation/consciousness: patient oriented x3 Neck Neck: Yes trachea midline, Yes supple and Yes no JVD Resp Effort & Inspection: normal respiratory effort Auscultation: diminished lung sounds Cardio Jugular venous distension: no JVD Rate: regular rate Rhythm: regular rhythm Heart sounds: S1 normal heart sound present, S2 normal heart sound present, no click, no gallops and Murmur heart sound present systolic early GI Auscultation: normal bowel sounds Skin General skin exam: no rashes or lesions noted and ecchymosis Neuro General: patient oriented x3 and no focal motor deficits Speech: No Abnormal speech present Extrem General: Yes no clubbing, cyanosis or edema Office Procedures EKG Details: EKG shows normal sinus rhythm voltage criteria for LVH 52627-Djkaiwkevqzgrremd, Complete Assessment & Plan Assessment & Plan (1) Preoperative cardiovascular examination: Code(s): Z01.810 - Encounter for preprocedural cardiovascular examination Plan: Preoperative cardiovascular risk stratification in this elderly gentleman to undergo colonoscopy for anemia and positive stool occult blood. Patient is currently off Xarelto therapy. Daughter is not really keen on pursuing further procedures on her dad given his frailty and overall significant pulmonary limitations with hypoxemic respiratory failure, she was the healthcare proxy as patient was not able to make his own decisions. Discussed with her to discuss with her siblings about the same. From cardiac perspective he is not having any active cardiac complaints or signs or symptoms of heart failure although he was diffuse atherosclerotic disease and this high likelihood of underlying coronary artery disease although his myocardial perfusion imaging 3 years ago was within normal limits. He is not currently having any anginal symptoms. From cardiac perspective colonoscopy is considered low risk procedure although if he gets general anesthesia that would elevate his cardiovascular risk. He is currently optimized to undergo the procedure with intermediate to high risk mostly with respiratory complications. Consider risk and benefit. (2) Labile blood pressure: Code(s): R09.89 - Other specified symptoms and signs involving the circulatory and respiratory systems Category: Medical Plan: Labile blood pressure which is not unlikely in this elderly gentleman especially given diffuse atherosclerotic disease. I would not pursue aggressive management and would be okay with permissive hypertension with systolic blood pressure up to 150 to avoid orthostatic hypotension other end and cause to have more frequent falls. Discussed with the daughter to advise monitor blood pressure at home. Orthostatic precautions. Advised the patient to increase fluid intake. Also reconsider use of Lasix as a p.r.n.. (3) Hypoxic respiratory failure: Code(s): J96.91 - Respiratory failure, unspecified with hypoxia Category: Medical Qualifiers: Chronicity: acute on chronic Qualified Code(s): J96.21 - Acute and chronic respiratory failure with hypoxia Plan: Patient with significant shortness of breath with hypoxemic respiratory failure related to pulmonary parenchymal disease without any overt evidence of congestive heart failure at this point in time. Continue supportive care. Continue follow-up with Pulmonary and nebulizer treatments. Will follow up in the clinic as need be. Thank you for allowing me to partake in his care Coding Level of Care Code Est Pt Level 4 (68920) Complex EM visit Add On G2211 Diagnoses Preoperative cardiovascular examination Z01.810 Labile blood pressure R09.89 Acute on chronic respiratory failure with hypoxia J96.21 Chronicity: acute on chronic CPT Codes EKG - CPT: 67218-Ebcdmwyfzcswothdn, Complete ([id number])
--- OUTSIDE RECORDS SUMMARY | 2024-11-26 09:13 | XMS_ITS | Encounter Summary ---
Author Organization [facility] Address [address] [place] [address] Care Team Providers Care Spot Welder Body Assembly Name Role Phone Chico Bojorquez MD Primary Care Provider [phone] Encounter Details Date Type Department Care Team (Late Contact Info) Description 10/25/2023 Scanned Document [facility] Pulmonary [address] [phone] Pulmonary, Scan Social History Tobacco Use Types Packs/Day Years Used Date Smoking Tobacco: Former Cigarettes Q uit: 1953 Smokeless Tobacco: Never Alcohol Use Standard Drinks/Week Comments No 0 (1 standard drink = 0.6 oz pur e alcohol) Sex and Gender Information Value Date Recorded Sex Assigned at Male 08/28/2024 8:58 AM EST Gender Identity Choose not to disclose 8:58 AM EST Sexual Orientation Choose not to disclose 2023 8:58 AM EST documented as of this encounter Plan of Treatment Upcoming Encounters Date Type Department Care Team (Late Contact Info) Description 12/23/2024 11:00 AM EST Office Visit [facility] Pulmonary [place] [address] [phone] Lorie Mathew MD [address] [phone] documented as of this encounter Visit Diagnoses Not on filedocumented in this encounter Care Teams Spot Welder Body Assembly Relationship Specialty Start Date End Date Chico Bojorquez MD [address] [place] [address] [place] [phone] PCP - General Internal Medicine 12/04/17 documented as of this encounter
--- OUTSIDE RECORDS SUMMARY | 2024-11-26 09:13 | XMS_ITS | Encounter Summary ---
Author Organization [facility] Address [address] [place] [address] Care Team Providers Care Operating System Designer Name Role Phone Chico Bojorquez MD Primary Care Provider Unav ailable Encounter Details Date Type Department Care Team (Late st Contact Info) Description 10/17/2024 Lab Requisition [facility] - Main Lab [address] [facility] [place] [phone] Danuta Mitchell MD [address] [place] [address] Peripheral vascular disease, unspecified (CMS/HCC); Heart failure, unspecified (CMS/HCC); Chronic obstructive pulmonary disease, unspecified (CMS/HCC) Social History Tobacco Use Types Packs/Day Years Used Date Smoking Tobacco: Never Assessed Sex and Gender Information Value Date Recorded Sex Assigned at Not on file Gender Identity Not on file Sexual Orientation Not on file documented as of this encounter Plan of Treatment Not on file documented as of this encounter Procedures Procedure Name Priority Date/Time Associated Diagnosis Comments COMPLETE BLOOD COUNT Routine 10/19/2024 6:54 AM EST Peripheral vascular disease, unspecified (CMS/HCC) Heart failure, unspecified (CMS/HCC) Chronic obstructive pulmonary disease, unspecified (CMS/HCC) documented in this encounter Results * (ABNORMAL) Complete blood count (10/19/2024 6:54 AM EST) WBC 9.9 4.8 - 10.8 K/[facility] LAB HEMETOLOGY METHOD 10/19/2024 9:34 AM EST [facility] RBC 3.80(L) 4.50 - 5.50 M/[facility] LAB HEMETOLOGY METHOD 10/19/2024 9:[address] [facility] LAB Hemoglobin 8.1(L) 13.5 - 17.5 g/dL LAB HEMETOLOGY METHOD 10/19/2024 9:[address] [facility] LAB Hematocrit 28.7(L) 42.0 - 54.0 % LAB HEMETOLOGY METHOD 10/19/2024 9:[address] [facility] LAB MCV 75.1(L) 79.0 - 98.0 FL LAB HEMETOLOGY METHOD 10/19/2024 9:[address] [facility] LAB MCH 21.2(L) 27.0 - 32.0 pcg LAB HEMETOLOGY METHOD 10/19/2024 9:[address] [facility] LAB MCHC 28.2(L) 32.0 - 37.0 g/dL LAB HEMETOLOGY METHOD 10/19/2024 9:[address] [facility] LAB RDW 30.7(H) 11.0 - 15.0 % LAB HEMETOLOGY METHOD 10/19/2024 9:[address] [facility] LAB Platelets 307 130 - 400 K/mcL LAB HEMETOLOGY METHOD 10/19/2024 9:[address] [facility] LAB MPV 9.7 7.0 - 11.0 FL LAB HEMETOLOGY METHOD 10/19/2024 9:[address] [facility] LAB NRBC 0.0 <1.0 % LAB HEMETOLOGY METHOD 10/19/2024 9:[address] [facility] LAB NRBC Absolute 0.00 <0.10 K/mcL LAB HEMETOLOGY METHOD 10/19/2024 9:[address] [facility] Blood Venous blood specimen / Unknown Venipuncture / Unknown 10/19/2024 6:54 AM EST 10/19/2024 8:28 AM EST Danuta Mitchell MD LAB BLOOD [facility]ABLES [facility] LAB [address] [place] [address], documented in this encounter Visit Diagnoses Diagnosis Peripheral vascular disease, unspecified (CMS/HCC) Peripheral vascular disease, unspecified Heart failure, unspecified (CMS/HCC) Heart failure, unspecified Chronic obstructive pulmonary disease, unspecified (CMS/HCC) documented in this encounter Care Teams Operating System Designer Relationship Specialty Start Date End Date Chico Bojorquez MD [address] [place] [address] PCP - General Internal Medicine 02/18/18 documented as of this encounter
--- OUTSIDE RECORDS SUMMARY | 2024-11-26 09:13 | XMS_ITS | Clinical Summary ---
Author Organization [address] Address [address] [place] [address] Phone Care Team Providers Care Etcher Apprentice Name Role Phone Chico Bojorquez MD Primary Care Provider Unav ailable Encounters Date Type Department Care Team Description 10/17/2024 Lab Requisition [facility] Lab [address] [place] [phone] Danuta Mitchell MD Peripheral vascular disease, unspecified (CMS/HCC); Heart failure, unspecified (CMS/HCC); Chronic obstructive pulmonary disease, unspecified (CMS/HCC) 10/08/2024 Lab Requisition [facility] Lab [address] [place] [phone] Danuta Mitchell MD Vitamin D deficiency, unspecified; Unspecified dementia, unspecified severity, without behavioral disturbance, psychotic disturbance, mood disturbance, and anxiety (CMS/HCC); Anemia, unspecified 10/02/2024 Lab Requisition [facility] Lab [address] [place] [phone] Blessing Mariee MD Heart failure, unspecified (CMS/HCC); Chronic obstructive pulmonary disease, unspecified (CMS/HCC) from Last 3 Months Social History Tobacco Use Types Packs/Day Years Used Date Smoking Tobacco: Never Assessed Sex and Gender Information Value Date Recorded Sex Assigned at Not on file Gender Identity Not on file Sexual Orientation Not on file Plan of Treatment Health Maintenance Due Date Last Done Comments COVID-19 Vaccine (#1) 1941 Pneumococcal Vaccine: 65+ Ye ars (1 of 2 - PCV) 1942 DTaP,Tdap,and Td Vaccines (1 - Tdap) 1955 Zoster Vaccines (1 of 2) 1955 RSV Immunization Patients 60 + Years Old (1 - 1-dose 75+ series) 2011 Influenza Vaccine (#1) 2024 Cholesterol Screening (Lipid Panel) 10/02/2024 Depression Screening 10/02/2024 Falls Risk Assessment 10/02/2024 Medicare Annual Wellness Visit 10/02/2024 Social Influencers of Health Screening 10/02/2024 Hypertension/CHF/CAD Annual BMP Blood Test 10/02/2025 10/02/2024 HIB Vaccines Aged Out No longer eligi ble based on patient's age to complete this topic HPV Vaccines Aged Out No longer eligi ble based on patient's age to complete this topic Hepatitis A Vaccines Aged Out No long er eligible based on patient's age to complete this topic Hepatitis B Vaccines Aged Out No long er eligible based on patient's age to complete this topic IPV Vaccines Aged Out No longer eligi ble based on patient's age to complete this topic MMR Vaccines Aged Out No longer eligi ble based on patient's age to complete this topic Meningococcal ACWY Vaccine Aged Out N o longer eligible based on patient's age to complete this topic RSV Immunization Patients Un gaurav 20 months Aged Out No longer eligible b ased on patient's age to complete this topic Varicella Vaccines Aged Out No longer eligible based on patient's age to complete this topic Procedures Procedure Name Priority Date/Time Associated Diagnosis Comments COMPLETE BLOOD COUNT Routine 10/19/2024 6:54 AM EST Peripheral vascular disease, unspecified (CMS/HCC) Heart failure, unspecified (CMS/HCC) Chronic obstructive pulmonary disease, unspecified (CMS/HCC) VITAMIN D 25 HYDROXY Routine 10/08/2024 7:26 AM EST Vitamin D deficiency, unspecified Unspecified dementia, unspecified severity, without behavioral disturbance, psychotic disturbance, mood disturbance, and anxiety (CMS/HCC) Anemia, unspecified VITAMIN B12 Routine 10/08/2024 7:26 AM EST Vitamin D deficiency, unspecified Unspecified dementia, unspecified severity, without behavioral disturbance, psychotic disturbance, mood disturbance, and anxiety (CMS/HCC) Anemia, unspecified COMPLETE BLOOD COUNT Routine 10/08/2024 7:26 AM EST Vitamin D deficiency, unspecified Unspecified dementia, unspecified severity, without behavioral disturbance, psychotic disturbance, mood disturbance, and anxiety (CMS/HCC) Anemia, unspecified BASIC METABOLIC PANEL Routine 10/02/2024 6:53 AM EST Heart failure, unspecified (CMS/HCC) Chronic obstructive pulmonary disease, unspecified (CMS/HCC) COMPLETE BLOOD COUNT Routine 10/02/2024 6:53 AM EST Heart failure, unspecified (CMS/HCC) Chronic obstructive pulmonary disease, unspecified (CMS/HCC) from Last 3 Months Results * (ABNORMAL) Complete blood count (10/19/2024 6:54 AM EST) Only the most recent of3 resultswithin the time period is included. WBC 9.9 4.8 - 10.8 K/mcL LAB HEMETOLOGY METHOD 10/19/2024 9:[address] [facility] RBC 3.80(L) 4.50 - 5.50 M/mcL LAB HEMETOLOGY METHOD 10/19/2024 9:[address] [facility] Hemoglobin 8.1(L) 13.5 - 17.5 g/dL LAB HEMETOLOGY METHOD 10/19/2024 9:[address] [facility] LAB Hematocrit 28.7(L) 42.0 - 54.0 % LAB HEMETOLOGY METHOD 10/19/2024 9:[address] [facility] LAB MCV 75.1(L) 79.0 - 98.0 FL LAB HEMETOLOGY METHOD 10/19/2024 9:[address] [facility] MCH 21.2(L) 27.0 - 32.0 pcg LAB HEMETOLOGY METHOD 10/19/2024 9:[address] [facility] MCHC 28.2(L) 32.0 - 37.0 g/dL LAB HEMETOLOGY METHOD 10/19/2024 9:34 AM EST [facility] RDW 30.7(H) 11.0 - 15.0 % LAB HEMETOLOGY METHOD 10/19/2024 9:34 AM EST [facility] LAB Platelets 307 130 - 400 K/mcL LAB HEMETOLOGY METHOD 10/19/2024 9:34 AM EST [facility] LAB MPV 9.7 7.0 - 11.0 FL LAB HEMETOLOGY METHOD 10/19/2024 9:34 AM EST [facility] NRBC 0.0 <1.0 % LAB HEMETOLOGY METHOD 10/19/2024 9:34 AM EST [facility] NRBC Absolute 0.00 <0.10 K/mcL LAB HEMETOLOGY METHOD 10/19/2024 9:34 AM EST [facility] Blood Venous blood specimen / Unknown Venipuncture / Unknown 10/19/2024 6:54 AM EST 10/19/2024 8:28 AM EST Danuta Mitchell MD LAB BLOOD ORDERABLES [facility] [address] [place] [address], * Vitamin D 25 hydroxy (10/08/2024 7:26 AM EST) Vit D, 25-Hydroxy 37.4 30.0 - 80.0 ng/mL LAB CHEMISTRY METHOD 10/08/2024 11:01 AM EST [facility] Blood Venous blood specimen / Unknown Venipuncture / Unknown 10/08/2024 7:26 AM EST 10/08/2024 9:49 AM EST Danuta Mitchell MD LAB BLOOD ORDERABLES [facility] [address] [place] [address], * Vitamin B12 (10/08/2024 7:26 AM EST) Pathologist [facility] Vitamin B-12 426 250 - 900 pcg/mL LAB CHEMISTRY METHOD 10/08/2024 11:[address] [facility] Blood Venous blood specimen / Unknown Venipuncture / Unknown 10/08/2024 7:26 AM EST 10/08/2024 9:49 AM EST Danuta Mitchell MD LAB BLOOD ORDERABLES [facility] [address] [place] [address], * (ABNORMAL) Basic metabolic panel (10/02/2024 6:53 AM EST) [facility] Sodium 140 133 - 145 mmol/L LAB CHEMISTRY METHOD 10/02/2024 11:[address] [facility] Potassium 4.6 3.5 - 5.5 mmol/L LAB CHEMISTRY METHOD 10/02/2024 11:[address] [facility] Chloride 106 96 - 110 mmol/L LAB CHEMISTRY METHOD 10/02/2024 11:[address] [facility] CO2 26 21 - 32 mmol/L LAB CHEMISTRY METHOD 10/02/2024 11:[address] [facility] Anion Gap 8 3 - 11 LAB CHEMISTRY METHOD 10/02/2024 11:[address] [facility] Glucose 69(L) 70 - 100 mg/dL LAB CHEMISTRY METHOD 10/02/2024 11:[address] [facility] BUN 27(H) 5 - 25 mg/dL LAB CHEMISTRY METHOD 10/02/2024 11:[address] [facility] Creatinine 1.13 0.70 - 1.30 mg/dL LAB CHEMISTRY METHOD 10/02/2024 11:[address] [facility] eGFR 63 >=60 mL/min/1. 73m2 LAB CHEMISTRY METHOD 10/02/2024 11:18 AM EST [facility] Comment:Calculation based on the??Chronic Kidney Disease Epidemiology Collaboration (CKD-EPI) equation refit??without adjustment for race. BUN/Creatinine Ratio 23.9 LAB CHEMISTRY METHOD 10/02/2024 11:18 AM EST [facility] Calcium 8.8 8.5 - 10.5 mg/dL LAB CHEMISTRY METHOD 10/02/2024 11:18 AM EST [facility] Blood Venous blood specimen / Unknown Venipuncture / Unknown 10/02/2024 6:53 AM EST 10/02/2024 9:14 AM EST Blessing Mariee MD LAB BLOOD ORDERABLES [facility] [address] [place] [address], from Last 3 Months Care Teams Etcher Apprentice Relationship Specialty Start Date End Date Chico Bojorquez MD [address] [place] [address] PCP - General Internal Medicine 02/18/18
--- OUTSIDE RECORDS SUMMARY | 2024-11-26 09:13 | XMS_ITS | Encounter Summary ---
Author Organization [facility] Address [address] [place] [address] Care Team Providers Care Fall Intern Name Role Phone Chico Bojorquez MD Primary Care Provider [phone] Encounter Details Date Type Department Care Team (Late Contact Info) Description 04/15/2023 Scanned Document [facility] PRIMARY CARE SCAN Primary Care, Scan Social History Tobacco Use Types Packs/Day [...] Description 12/23/2024 11:00 AM EST Office Visit [facility] Pulmonary [address] [phone] Lorie Mathew MD [address] [place] [address] documented as of this encounter Visit Diagnoses Not on filedocumented in this encounter Care Teams Fall Intern Relationship Specialty Start Date End Date Chico Bojorquez MD [address] [place] [address] [place] [address] PCP - General Internal Medicine 12/04/17 documented as of this encounter
--- OUTSIDE RECORDS SUMMARY | 2024-11-26 09:13 | XMS_ITS ---
Author Organization [facility] [place] Address Unknown Medications Medication Dose Frequency Directions Start Date End Ryan e Acetaminophen Tablet 325 MG 2 {tbl} Give 2 tablet by mouth every 4 hours as needed for Mild Pain More than 3 doses in 48 hours, notify physician/advanced practice provider(ADELAIDA).Do not exceed 3g/day. (standing order) 10/01/2024 Acetaminophen Tablet 325 MG 2 {tbl} Give 2 tablet by mouth every 6 hours as needed for Temp 100F or above Notify Physician/Advanced Practice provider. Do not exceed 3g/day 10/01/2024 Milk of Magnesia Suspension 400 MG/5ML 30 mL Give 30 ml by mout h as needed for Constipation give at bedtime if no BM in 3 days 10/01/2024 Saline Laxative Enema 1 {Dose} Insert 1 dose rectally as needed for Constipation if no result from Dulcolax within 2 hours. If no results from Saline laxative enema, call MD/advanced practice provider (ADELAIDA) for further orders. 10/01/2024 Dulcolax Suppository 10 MG 1 Insert 1 suppository rectally as needed for Constipation if no result from MOM by next shift 10/01/2024 Flomax Capsule 0.4 MG 1 {Capsule} 24 h Give 1 capsule by mouth one time a day for benign prostatic hyperplasia 10/01/2024 Albuterol Sulfate Nebulization Solution (2.5 MG/3ML) 0.083% 3 mL 3 ml inhale orally via nebulizer every 5 hours as needed for Shortness of Breath/ wheezing Pre treatment evaluation in supplemental documentation. In progress note document response to instructions and education and any adverse reactions. Notify the provider of any adverse reactions. 10/01/2024 Furosemide Tablet 20 MG 1 {tbl} 24 h Give 1 tablet by mouth one time a day for CHF 10/02/2024 Trelegy Ellipta Inhalation Aerosol Powder Breath Activated 200-62.5-25 MCG/ACT 1 24 h 1 inhalation inhale orally one time a day for COPD rinse mouth after use 10/02/2024 Albuterol Sulfate HFA Inhalation Aerosol Solution 108 (90 Base) MCG/ACT 2 2 puff inhale orally every 4 hours as needed for SOB/wheezing 10/01/2024 Colace Oral Capsule 100 MG 1 {Capsule} Give 1 capsule by mouth every 23 hours as needed for constipation 10/01/2024 Omeprazole Capsule Delayed Release 20 MG 1 {Capsule} 24 h Give 1 capsule by mouth one time a day for acid indigestion 10/02/2024 rOPINIRole HCl Oral Tablet 2 MG 2 mg Give 2 mg by mouth a t bedtime for RLS 10/02/2024 Atorvastatin Calcium Oral Tablet 10 MG 1 mg Give 1 mg by mouth i n the evening for HLD 10/02/2024 Citalopram Hydrobromide Tablet 20 MG 1 {tbl} 24 h Give 1 tablet by mouth one time a day for depression 10/02/2024 Phytoplex Z-Guard Paste 57-17 % Apply to buttocks topically every shift for skin integrity Apply as directed. 10/02/2024 Phytoplex Z-Guard Paste 57-17 % Apply to coccyx topically as needed for incontinence 10/02/2024 Ferrous Sulfate Tablet 325 (65 Fe) MG 1 {tbl} 24 h Give 1 tablet by mouth one time a day for anemia 10/06/2024 AmLODIPine Besylate Tablet 5 MG 1 {tbl} 24 h Give 1 tablet by mouth one time a day for Hold for SBP < 115 10/06/2024 Aspirin EC Tablet Delayed Release 81 MG 1 {tbl} 24 h Give 1 tablet by mouth one time a day for prevention/treatment of blood clots 10/17/2024 Medications Administered Medication Dose Frequency Status Start Date End Date Acetaminophen Tablet 325 MG 2 {tbl} Acetaminophen Tablet 325 MG 2 {tbl} Milk of Magnesia Suspension 400 MG/5ML 30 mL 10/01/2024 Saline Laxative Enema 1 {Dose} 10/01/20 Dulcolax Suppository 10 MG 1 09/2024 Flomax Capsule 0.4 MG 1 {Capsule} 24 h 2024 Albuterol Sulfate Nebulizati on Solution (2.5 MG/3ML) 0.083% 3 mL 10/01/2024 Furosemide Tablet 20 MG 1 {tbl} 24 h 2024 Trelegy Ellipta Inhalation A erosol Powder Breath Activated 200-62.5-25 MCG/ACT 1 24 h 10/24/2024 Albuterol Sulfate HFA Inhala tion Aerosol Solution 108 (90 Base) MCG/ACT 2 10/01/2024 Colace Oral Capsule 100 MG 1 {Capsule} 1 12/02/2023 Omeprazole Capsule Delayed R elease 20 MG 1 {Capsule} 24 h 10/24/2024 rOPINIRole HCl Oral Tablet 2 MG 2 mg 10/24/2024 Atorvastatin Calcium Oral Ta blet 10 MG 1 mg 10/24/2024 Citalopram Hydrobromide Tablet 20 MG 1 {tbl} 24 h 10/24/2024 Phytoplex Z-Guard Paste 57-17 % 10/24/2024 Phytoplex Z-Guard Paste 57-17 % 10/02/2024 Ferrous Sulfate Tablet 325 ( 65 Fe) MG 1 {tbl} 24 h 10/24/2024 AmLODIPine Besylate Tablet 5 MG 1 {tbl} 24 h 10/24/2024 Aspirin EC Tablet Delayed Re lease 81 MG 1 {tbl} 24 h 10/24/2024 Problems Problem Status Start Date End Date ACUTE RESPIRATORY FAILURE, U NSPECIFIED WHETHER WITH HYPOXIA OR HYPERCAPNIA (Primary) (J96.00 - ICD-10-CM) ACTIVE 2023 CHRONIC OBSTRUCTIVE PULMONAR Y DISEASE, UNSPECIFIED (J44.9 - ICD-10-CM) ACTIVE 10/01/2024 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) ACTIVE 10/01/2024 UNSPECIFIED FALL, SUBSEQUENT ENCOUNTER (W19.XXXD - ICD-10-CM) ACTIVE 10/01/2024 CHRONIC DIASTOLIC (CONGESTIV E) HEART FAILURE (I50.32 - ICD-10-CM) ACTIVE 10/01/2024 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) ACTIVE 10/01/2024 ESSENTIAL (PRIMARY) HYPERTENSION (I10 - ICD-10-CM) ACT MARCELINA 10/01/2024 PERIPHERAL VASCULAR DISEASE, UNSPECIFIED (I73.9 - ICD-10-CM) ACTIVE 10/01/2024 WEAKNESS (R53.1 - ICD-10-CM) ACTIVE 10/02/2024 UNSTEADINESS ON FEET (R26.81 - ICD-10-CM) ACTIVE 10/02/2024 UNSPECIFIED MOOD [AFFECTIVE] DISORDER (F39 - ICD-10-CM ) ACTIVE 10/01/2024 GASTRO-ESOPHAGEAL REFLUX DIS EASE WITHOUT ESOPHAGITIS (K21.9 - ICD-10-CM) ACTIVE 10/01/2024 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 with home health services [facility] [place] 10/04/2024 03:05 pm EST - 10/24/2024 01:32 pm EST Reason For Referral Bleeding (other than GI) Immunizations Vaccine Date TB 1 Step Mantoux (PPD) 10/02/2024 06:00 pm EST TB 2 Step Mantoux Skin Test TB 2 Step Mantoux Skin Test 10/16/2024 1 2:00 am EST Social History Vital Signs Vital Sign Reading Time Taken painLevel 0 {score} 10/24/2024 09:53 am EST painLevel 0 {score} 10/24/2024 09:53 am EST painLevel 0 {score} 10/24/2024 03:48 am EST painLevel 0 {score} 10/23/2024 07:53 pm EST painLevel 0 {score} 10/23/2024 12:15 pm EST painLevel 0 {score} 10/23/2024 12:42 am EST painLevel 0 {score} 10/22/2024 06:04 pm EST painLevel 0 {score} 10/22/2024 11:44 am EST painLevel 0 {score} 10/21/2024 10:50 pm EST painLevel 0 {score} 10/21/2024 12:12 pm EST painLevel 0 {score} 10/21/2024 12:37 am EST painLevel 0 {score} 10/20/2024 09:28 pm EST oxygenSaturation 96 % 10/23/2024 04:1 3 pm EST oxygenSaturation 96 % 10/23/2024 09:3 8 am EST oxygenSaturation 94 % 10/22/2024 09:1 4 am EST oxygenSaturation 94 % 10/21/2024 09:3 7 am EST oxygenSaturation 93 % 10/20/2024 09:2 8 pm EST oxygenSaturation 92 % 10/19/2024 09:1 7 pm EST heartrate 71 /min 10/23/2024 04:13 pm EST heartrate 71 /min 10/23/2024 09:38 am EST heartrate 74 /min 10/22/2024 09:14 am EST heartrate 89 /min 10/21/2024 09:37 am EST heartrate 74 /min 10/20/2024 09:28 pm EST heartrate 80 /min 10/19/2024 09:17 pm EST temperature 98 [degF] 10/23/2024 04:13 pm EST temperature 98 [degF] 10/23/2024 09:38 am EST temperature 97.9 [degF] 10/22/2024 09:14 am EST temperature 97.9 [degF] 10/21/2024 09:37 am EST temperature 98.1 [degF] 10/20/2024 09:28 pm EST temperature 97.9 [degF] 10/19/2024 09:17 pm EST systolicValue 127 mm[Hg] 10/23/2024 04:13 pm EST diastolicValue 52 mm[Hg] 10/23/2024 04:13 pm EST systolicValue 127 mm[Hg] 10/23/2024 09:38 am EST diastolicValue 52 mm[Hg] 10/23/2024 09:38 am EST systolicValue 141 mm[Hg] 10/22/2024 09:14 am EST diastolicValue 40 mm[Hg] 10/22/2024 09:14 am EST systolicValue 121 mm[Hg] 10/21/2024 09:37 am EST diastolicValue 54 mm[Hg] 10/21/2024 09:37 am EST systolicValue 127 mm[Hg] 10/20/2024 09:28 pm EST diastolicValue 38 mm[Hg] 10/20/2024 09:28 pm EST systolicValue 145 mm[Hg] 10/20/2024 10:45 am EST diastolicValue 61 mm[Hg] 10/20/2024 10:45 am EST systolicValue 148 mm[Hg] 10/19/2024 09:17 pm EST diastolicValue 55 mm[Hg] 10/19/2024 09:17 pm EST respirations 18 /min 10/23/2024 04:13 pm EST respirations 18 /min 10/23/2024 09:38 am EST respirations 18 /min 10/22/2024 09:14 am EST respirations 18 /min 10/21/2024 09:37 am EST respirations 18 /min 10/20/2024 09:28 pm EST respirations 18 /min 10/19/2024 09:17 pm EST weight 133.2 [lb_av] 10/21/2024 03:02 pm EST
--- OUTSIDE RECORDS SUMMARY | 2024-11-26 09:13 | XMS_ITS | Encounter Summary ---
Author Organization [facility] Address [address] [place] [address] Care Team Providers Care Planograph Operator Name Role Phone Chico Bojorquez MD Primary Care Provider [phone] Encounter Details Date Type Department Care Team ([facility] Contact Info) Description 04/21/2024 Scanned Document [facility] Pulmonary [address] [phone] Lorie Mathew MD [address] [place] [phone] Social History Tobacco Use Types Packs/Day Years [...] Description 12/23/2024 11:00 AM EST Office Visit [facility] Pulmonary [place] [address] [phone] Lorie Mathew MD [address] [place] [phone] documented as of this encounter Visit Diagnoses Not on filedocumented in this encounter Care Teams Planograph Operator Relationship Specialty Start Date End Date Chico Bojorquez MD [address] [place] [address] Dr Rashid, CARLOS ALBERTO [address] PCP - General Internal Medicine 12/04/17 documented as of this encounter
--- OUTSIDE RECORDS SUMMARY | 2024-11-26 09:13 | XMS_ITS | Encounter Summary ---
Author Organization [facility] Address [address] [place] [address] Care Team Providers Care Lathing Supervisor Name Role Phone Chico Bojorquez MD Primary Care Provider [phone] Encounter Details Date Type Department Care Team (Late Contact Info) Description 05/08/2022 Scanned Document [facility] Pulmonary [address] [address] Pulmonary, Scan Social History Tobacco Use Types [...] Upcoming Encounters Date Type Department Care Team ([facility] Contact Info) Description 12/23/2024 11:00 AM EST Office Visit [facility] Pulmonary [address] [phone] Lorie Mathew MD [address] [place] [address] documented as of this encounter Visit Diagnoses Not on filedocumented in this encounter Care Teams Lathing Supervisor Relationship Specialty Start Date End Date Chico Bojorquez MD [address] [place] [address] [place] [address] PCP - General Internal Medicine 12/04/17 documented as of this encounter
--- OUTSIDE RECORDS SUMMARY | 2024-11-26 09:13 | XMS_ITS | Encounter Summary ---
Author Organization [facility] Address [address] [place] [address] Care Team Providers Care Human Resources Operations Coordinator Name Role Phone Chico Bojorquez MD Primary Care Provider Unav ailable Encounter Details Date Type Department Care Team (Late st Contact Info) Description 10/08/2024 Lab Requisition [facility] Lab [address] [facility] [place] [phone] Danuta Mitchell MD [address] [place] [address] Vitamin D deficiency, unspecified; Unspecified dementia, unspecified severity, without behavioral disturbance, psychotic disturbance, mood disturbance, and anxiety (CMS/HCC); Anemia, unspecified Social History Tobacco Use Types Packs/Day Years Used Date Smoking Tobacco: Never Assessed Sex and Gender Information Value Date Recorded Sex Assigned at Not on file Gender Identity Not on file Sexual Orientation Not on file documented as of this encounter Plan of Treatment Not on file documented as of this encounter Procedures Procedure Name Priority Date/Time Associated Diagnosis Comments VITAMIN D 25 HYDROXY Routine 10/08/2024 7:26 [...] mood disturbance, and anxiety (CMS/HCC) Anemia, unspecified documented in this encounter Results * Vitamin D 25 hydroxy (10/08/2024 7:26 AM EST) Pathologist [facility] Vit D, 25-Hydroxy 37.4 30.0 - 80.0 ng/mL LAB CHEMISTRY METHOD 10/08/2024 11:01 AM EST [facility] Blood Venous blood specimen / Unknown Venipuncture / Unknown 10/08/2024 7:26 AM EST 10/08/2024 9:49 AM EST Danuta Mitchell MD LAB BLOOD ORDERABLES Performing Organization Address City/[facility]/ZIP Co de Phone Number [facility] [address] [place] [address], [place] [phone] * Vitamin B12 (10/08/2024 7:26 AM EST) [facility] Vitamin B-12 426 250 - 900 pcg/mL LAB CHEMISTRY METHOD 10/08/2024 11:16 AM EST [facility] Blood Venous blood specimen / Unknown Venipuncture / Unknown 10/08/2024 7:26 AM EST 10/08/2024 9:49 AM EST Danuta Mitchell MD LAB BLOOD ORDERABLES Performing Organization Address City/[facility]/ZIP Co de Phone Number [facility] [address] [place] [address], [place] [phone] * (ABNORMAL) Complete blood count (10/08/2024 7:26 AM EST) [facility] WBC 13.3(H) 4.8 - 10.8 K/[facility] LAB HEMETOLOGY METHOD 10/08/2024 10:33 AM EST [facility] RBC 4.00(L) 4.50 - 5.50 M/[facility] LAB HEMETOLOGY METHOD 10/08/2024 10:33 AM EST [facility] Hemoglobin 7.8(L) 13.5 - 17.5 g/dL LAB HEMETOLOGY METHOD 10/08/2024 10:33 AM [facility] Hematocrit 27.4(L) 42.0 - 54.0 % LAB HEMETOLOGY METHOD 10/08/2024 10:33 AM [facility] MCV 69.2(L) 79.0 - 98.0 FL LAB HEMETOLOGY METHOD 10/08/2024 10:33 AM [facility] MCH 19.7(L) 27.0 - 32.0 pcg LAB HEMETOLOGY METHOD 10/08/2024 10:33 AM [facility] MCHC 28.5(L) 32.0 - 37.0 g/dL LAB HEMETOLOGY METHOD 10/08/2024 10:33 AM [facility] RDW 25.5(H) 11.0 - 15.0 % LAB HEMETOLOGY METHOD 10/08/2024 10:33 AM [facility] Platelets 285 130 - 400 K/mcL LAB HEMETOLOGY METHOD 10/08/2024 10:33 AM [facility] MPV 10.4 7.0 - 11.0 FL LAB HEMETOLOGY METHOD 10/08/2024 10:33 AM [facility] NRBC 0.0 <1.0 % LAB HEMETOLOGY METHOD 10/08/2024 10:33 AM [facility] NRBC Absolute 0.00 <0.10 K/mcL LAB HEMETOLOGY METHOD 10/08/2024 10:33 AM [facility] Blood Venous blood specimen / Unknown Venipuncture / Unknown 10/08/2024 7:26 AM EST 10/08/2024 9:49 AM EST Danuta Mitchell MD LAB BLOOD ORDERABLES [facility] [address] [place] [address], documented in this encounter Visit Diagnoses Diagnosis Vitamin D deficiency, unspecified Unspecified dementia, unspecified severity, without behavioral disturbance, psychotic disturbance, mood disturbance, and anxiety (CMS/HCC) Anemia, unspecified documented in this encounter Care Teams Human Resources Operations Coordinator Relationship Specialty Start Date End Date Chico Bojorquez MD [address] [facility] [address] [place] [address] PCP - General Internal Medicine 02/18/18 documented as of this encounter
--- OUTSIDE RECORDS SUMMARY | 2024-11-26 09:13 | XMS_ITS | Encounter Summary ---
Author Organization [facility] Address [address] [place], [place] [id number] Care Team Providers Care Punchboard Stuffer Name Role Phone Chico Bojorquez MD Primary Care Provider [phone] Encounter Details Date Type Department Care Team (Late Contact Info) Description 07/17/2021 Scanned Document [facility] PULMONOLGY SCAN Lorie Mathew MD [address] [place] [phone] Social History Tobacco Use Types Packs/Day Years [...] not to disclose 2023 8:58 AM EST COVID-19 Exposure Response Date Recorded In the last month, have you been in contact with someone who was confirmed or suspected to have Coronavirus / COVID-19? No / Unsure 06/19/2021 8:06 AM EDT documented as of this encounter Plan of Treatment Upcoming Encounters Date Type Department Care Team ([facility] Contact Info) Description 12/23/2024 11:00 AM EST Office Visit [facility] Pulmonary [place] [address] [facility] [address] [place] [phone] Lorie Mathew MD [address] [place] [phone] documented as of this encounter Visit Diagnoses Not on filedocumented in this encounter Care Teams Punchboard Stuffer Relationship Specialty Start Date End Date Chico Bojorquez MD [address] [place] [address] [place] [address] PCP - General Internal Medicine 12/04/17 documented as of this encounter
--- OUTSIDE RECORDS SUMMARY | 2024-11-26 09:13 | XMS_ITS | Encounter Summary ---
Author Organization [facility] Address [address] [place] [address] Care Team Providers Care Field Cane Scaler Helper Name Role Phone Chico Bojorquez MD Primary Care Provider [phone] Encounter Details Date Type Department Care Team ([facility] Contact Info) Description 08/04/2021 Scanned Document [facility] PULMONOLGY SCAN Lorie Mathew MD [address] [place] [address] Social History Tobacco Use Types Packs/Day Years [...] Description 12/23/2024 11:00 AM EST Office Visit [facility] Pulmonary [place] [address] [phone] Lorie Mathew MD [address] [place] [address] documented as of this encounter Visit Diagnoses Not on filedocumented in this encounter Care Teams Field Cane Scaler Helper Relationship Specialty Start Date End Date Chico Bojorquez MD [address] [place] [address] [place] [address] PCP - General Internal Medicine 12/04/17 documented as of this encounter
--- OUTSIDE RECORDS SUMMARY | 2024-11-26 09:13 | XMS_ITS | Encounter Summary ---
Author Organization [facility] Address [address] [place] [address] Care Team Providers Care Incident Handler Name Role Phone Chico Bojorquez MD Primary Care Provider [phone] Encounter Details Date Type Department Care Team (Late Contact Info) Description 09/26/[address] [facility] Vascular & Endovascular Surgery [address] [place] [phone] Yony Boyd MD [address] [facility] [address] [place] [address] Social History Tobacco Use Types Packs/Day Years Used Date Smoking Tobacco: Former Cigarettes Q uit: 5 Smokeless Tobacco: Never Alcohol Use Standard Drinks/Week Comments No 0 (1 standard drink = 0.6 oz pur e alcohol) Sex and Gender Information Value Date Recorded Sex Assigned at Male 08/28/2024 8:58 AM EST Gender Identity Choose not to disclose 8:58 AM EST Sexual Orientation Choose not to disclose 2023 8:58 AM EST documented as of this encounter Miscellaneous Notes * Telephone Encounter - Paulette Figueroa - 09/26/2023 3:20 PM ESTSummary: bryson/ly Patient daughter called to cancel his appointments that are scheduled for 10/03/23 She would like acall back at [phone] documented in this encounter Plan of Treatment Upcoming Encounters Date Type Department Care Team (Late Contact Info) Description 12/23/2024 11:00 AM EST Office Visit [facility] Pulmonary [place] 85 [facility] [address] [place] [phone] Lorie Mathew MD [address] [facility] [address] [place] [phone] documented as of this encounter Visit Diagnoses Not on filedocumented in this encounter Care Teams Incident Handler Relationship Specialty Start Date End Date Chioc Bojorquez MD [address] [place] [address] [place] [address] PCP - General Internal Medicine 12/04/17 documented as of this encounter
--- OUTSIDE RECORDS SUMMARY | 2024-11-26 09:13 | XMS_ITS | Encounter Summary ---
Author Organization [facility] Address [address] [place] [address] Care Team Providers Care Md Senior Research Scientist Name Role Phone Chico Bojorquez MD Primary Care Provider [phone] Encounter Details Date Type Department Care Team ([facility] Contact Info) Description 04/21/2024 Scanned Document [facility] Pulmonary [address] [phone] Lorie Mathew MD [address] [place] [phone] Social History Tobacco Use Types Packs/Day Years [...] Description 12/23/2024 11:00 AM EST Office Visit [facility] Pulmonary [place] [address] [phone] Lorie Mathew MD [address] [place] [phone] documented as of this encounter Visit Diagnoses Not on filedocumented in this encounter Care Teams Md Senior Research Scientist Relationship Specialty Start Date End Date Chico Bojorquez MD [address] [place] [address] Dr Rashid, CARLOS ALBERTO [address] PCP - General Internal Medicine 12/04/17 documented as of this encounter
--- OUTSIDE RECORDS SUMMARY | 2024-11-26 09:14 | XMS_ITS | Encounter Summary ---
Author Organization [facility] Address [address] [place] [address] Care Team Providers Care Needle Leader Name Role Phone Chico Bojorquez MD Primary Care Provider [phone] Encounter Details Date Type Department Care Team ([facility] Contact Info) Description 08/19/2024 Scanned Document [facility] Pulmonary [address] [phone] Lorie Mathew MD [address] [place] [phone] Social History Tobacco Use Types Packs/Day Years [...] Office Visit [facility] Pulmonary [place] [address] [phone] Lorie Mathew MD [address] [place] [phone] documented as of this encounter Visit Diagnoses Not on filedocumented in this encounter Care Teams Needle Leader Relationship Specialty Start Date End Date Chico Bojorquez MD [address] [place] [address] Dr Rashid, CARLOS ALBERTO [address] PCP - General Internal Medicine 12/04/17 documented as of this encounter
--- OUTSIDE RECORDS SUMMARY | 2024-11-26 09:14 | XMS_ITS | Clinical Summary ---
Author Organization [facility] Address [address] [place] [address] Care Team Providers Care A Auxiliary Name Role Phone Chico Bojorquez MD Primary Care Provider [phone] Allergies No known active allergies Medications Medication Sig Dispensed Refills Start Date End Date Status B Complex Vitamins (VITAMIN-B COMPLEX) Tab Take by mouth. Active oxybutynin (DITROPAN XL) 15 MG 24 hr tablet Take by mouth. Active atorvastatin (LIPITOR) 10 MG tablet Take 1 tablet (10 mg total) by mouth daily. Active betamethasone dipropionate augmented (DIPROLENE-AF) 0.05 % cream Apply topically daily. 0 09/09/2017 Active citalopram (CeleXA) 20 MG tablet Take 1 tablet (20 mg total) by mouth daily. 3 09/08/2017 Active lisinopril (PRINIVIL,ZeSTRIL) 5 MG tablet Take 1 tablet (5 mg total) by mouth daily. Active sildenafil (VIAGRA) 100 MG tablet TAKE 1/2 OR 1 TABLET BY MOUTH NEEDED ONCE A DAY.. 04/15/2021 Active fluticasone (FloNASE) 50 mcg/spray nasal spray SPRAY 1 SPRAY INTO EACH NOSTRIL ONCE DAILY 06/06/2021 Active OxygenIndications:C hronic obstructive pulmonary disease, unspecified COPD type (HCC) Please test patient for OCD, POC. Maintain saturation > or = 90% Dx J44.9 Length 99 1 supply 06/19/2021 Active naproxen sodium (ALEVE) 220 mg tablet 1 tablet with food or milk as needed Active OMEprazole (PriLOSEC) 20 MG capsule 10/19/2021 Active ipratropium (ATROVENT) 0.06 % nasal spray 2 SPRAYS EACH NOSTRIL 3 TIMES A DAY 06/06/2022 Active rOPINIRole (REQUIP) 1 MG tablet TAKE 1 TALET BY MOUTH 1 TO 3 HOURS BEFORE BEDTIME Active traMADol (ULTRAM) 50 MG tablet TAKE 1/2 TABLET BY MOUTH TWICE DAILY NEEDED FOR 7 DAYS 08/29/2022 Active cholecalciferol (CHOLECALCIFEROL) 25 MCG (1000 UT) tablet Take 1 tablet (1,000 Units total) by mouth daily. Active albuterol (PROVENTIL) (0.083%) 2.5 mg/3 mL nebulizer solutionIndications :Chronic obstructive pulmonary disease, unspecified COPD type (HCC) Take 3 mL (2.5 mg total) by nebulization every 4 (four) hours as needed for wheezing or shortness of breath. 75 mL 3 09/24/2022 Active Nebulizer MiscIndications:Chr onic obstructive pulmonary disease, unspecified COPD type (HCC) Nebulizer with all supplies, mask version instead of nasal cannula for oxygen, [place] 99, dx:J44.9 1 each 10/16/2022 Active ferrous sulfate 325 (65 FE) MG tablet Take 1 tablet (325 mg total) by mouth daily. 10/30/2022 Active azithromycin (ZITHROMAX) 250 MG tablet TAKE 1 TABLET ORALLY DAILY FOR 4 DAYS START ON DAY 2 OF THERAPY 01/13/2023 Active fluticasone-umeclid inium-vilanterol (TRELEGY ELLIPTA) 200-62.5-25 mcg/act inhalerIndications: Chronic obstructive pulmonary disease, unspecified COPD type (HCC) Inhale 1 puff daily. 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 Hypertension Mother cause of at age 44 Relation Name Status Comments Father Mother Social History Tobacco Use Types Packs/Day Years Used Date Smoking Tobacco: Former Cigarettes Q uit: 1954 Smokeless Tobacco: Never Tobacco Cessation:Counseling Given: Not Answered Alcohol Use Standard Drinks/Week Comments No 0 (1 standard drink = 0.6 oz pur e alcohol) Sex and Gender Information Value Date Recorded Sex Assigned at Male 08/28/2024 8:58 AM EST Gender Identity Choose not to disclose 8:58 AM EST Sexual Orientation Choose not to disclose 2023 8:58 AM EST Last Filed Vital Signs Vital Sign Reading Time Taken Comments Blood Pressure 149/74 01/29/2023 9:53 AM EDT Pulse 64 01/29/2023 9:53 AM EDT Temperature 36.6 ??C (97.9 ??F) 09/24/2022 10:[address] Respiratory Rate 18 06/09/2018 2:44 PM EDT Oxygen Saturation 95% 01/29/2023 9:53 AM EDT Inhaled Oxygen Concentration - - Weight 72.1 kg (159 lb) 01/29/2023 9:53 AM EDT Height 167.6 cm (5' 6 ) 01/29/2023 9:53 AM EDT Body Mass Index 25.66 01/29/2023 9:53 AM EDT Plan of Treatment Upcoming Encounters Date Type Department Care Team (Late st Contact Info) Description 12/23/2024 11:00 AM EST Office Visit [facility] Pulmonary [address] [phone] Lorie Mathew MD [address] [place] [phone] Health Maintenance Due Date Last Done Comments DTaP/Tdap/Td Vaccines (1 - Tdap) 1954 Pneumococcal Vaccines 50+ (1 of 2 - PCV) 1955 Zoster (Shingles) Vaccine (1 of 2) 1986 DXA Bone Density (Females,Ag es 65 and older) 2001 RSV Vaccine 60 years and old er and Patients (1 - 1-dose 75+ series) 2011 Influenza Vaccine 05/21/2024 COVID-19 Vaccine ( - 2023-2 5 season) 2024 Hepatitis B Vaccines Aged Out No long er eligible based on patient's age to complete this topic Care Teams A Auxiliary Relationship Specialty Start Date End Date Chico Bojorquez MD [address] [place] [address] [place] [address] PCP - General Internal Medicine 12/04/17
--- OUTSIDE RECORDS SUMMARY | 2024-11-26 09:14 | XMS_ITS | Encounter Summary ---
Author Organization [facility] Address [address] [place] [address] Care Team Providers Care Leasing Consultant Name Role Phone Chico Bojorquez MD Primary Care Provider Unav ailable Encounter Details Date Type Department Care Team (Late st Contact Info) Description 10/02/2024 Lab Requisition [facility] - Main Lab [address] [facility] [place] [phone] Blessing Mariee MD [address] [place] [address] Heart failure, unspecified (CMS/HCC); Chronic obstructive pulmonary [...] Associated Diagnosis Comments COMPLETE BLOOD COUNT Routine 10/02/2024 6:53 AM EST Heart failure, unspecified (CMS/HCC) Chronic obstructive pulmonary disease, unspecified (CMS/HCC) BASIC METABOLIC PANEL Routine 10/02/2024 6:53 AM EST Heart failure, unspecified (CMS/HCC) Chronic obstructive pulmonary disease, unspecified (CMS/HCC) documented in this encounter Results * (ABNORMAL) Basic metabolic panel (10/02/2024 6:53 AM EST) Sodium 140 133 - 145 mmol/L LAB CHEMISTRY METHOD 10/02/2024 11:18 AM EST [facility] Potassium 4.6 3.5 - 5.5 mmol/L LAB CHEMISTRY METHOD 10/02/2024 11:18 AM [facility] LAB Chloride 106 96 - 110 mmol/L LAB CHEMISTRY METHOD 10/02/2024 11:18 AM [facility] CO2 26 21 - 32 mmol/L LAB CHEMISTRY METHOD 10/02/2024 11:18 AM [facility] Anion Gap 8 3 - 11 LAB CHEMISTRY METHOD 10/02/2024 11:18 AM [facility] Glucose 69(L) 70 - 100 mg/dL LAB CHEMISTRY METHOD 10/02/2024 11:18 AM [facility] BUN 27(H) 5 - 25 mg/dL LAB CHEMISTRY METHOD 10/02/2024 11:18 AM [facility] Creatinine 1.13 0.70 - 1.30 mg/dL LAB CHEMISTRY METHOD 10/02/2024 11:18 AM [facility] LAB eGFR 63 >=60 mL/min/1. 73m2 LAB CHEMISTRY METHOD 10/02/2024 11:18 AM [facility] LAB Comment:Calculation based on the??Chronic Kidney Disease Epidemiology Collaboration (CKD-EPI) equation refit??without adjustment for race. BUN/Creatinine Ratio 23.9 LAB CHEMISTRY METHOD 10/02/2024 11:18 AM [facility] LAB Calcium 8.8 8.5 - 10.5 mg/dL LAB CHEMISTRY METHOD 10/02/2024 11:18 AM [facility] Blood Venous blood specimen / Unknown Venipuncture / Unknown 10/02/2024 6:53 AM EST 10/02/2024 9:14 AM EST Blessing Mariee MD LAB BLOOD ORDERABLES [facility] [address] [place] [address], * (ABNORMAL) Complete blood count (10/02/2024 6:53 AM EST) [facility] WBC 14.1(H) 4.8 - 10.8 K/mcL LAB HEMETOLOGY METHOD 10/02/2024 10:41 AM [facility] RBC 3.90(L) 4.50 - 5.50 M/mcL LAB HEMETOLOGY METHOD 10/02/2024 10:41 AM [facility] Hemoglobin 7.1(L) 13.5 - 17.5 g/dL LAB HEMETOLOGY METHOD 10/02/2024 10:41 AM [facility] Hematocrit 25.4(L) 42.0 - 54.0 % LAB HEMETOLOGY METHOD 10/02/2024 10:41 AM [facility] MCV 65.5(L) 79.0 - 98.0 FL LAB HEMETOLOGY METHOD 10/02/2024 10:41 AM [facility] MCH 18.3(L) 27.0 - 32.0 pcg LAB HEMETOLOGY METHOD 10/02/2024 10:41 AM [facility] MCHC 28.0(L) 32.0 - 37.0 g/dL LAB HEMETOLOGY METHOD 10/02/2024 10:41 AM [facility] RDW 22.7(H) 11.0 - 15.0 % LAB HEMETOLOGY METHOD 10/02/2024 10:41 AM [facility] Platelets 299 130 - 400 K/mcL LAB HEMETOLOGY METHOD 10/02/2024 10:41 AM [facility] MPV 10.4 7.0 - 11.0 FL LAB HEMETOLOGY METHOD 10/02/2024 10:41 AM [facility] NRBC 0.0 <1.0 % LAB HEMETOLOGY METHOD 10/02/2024 10:41 AM [facility] LAB NRBC Absolute 0.00 <0.10 K/mcL LAB HEMETOLOGY METHOD 10/02/2024 10:41 AM EST [facility] Blood Venous blood specimen / Unknown Venipuncture / Unknown 10/02/2024 6:53 AM EST 10/02/2024 9:14 AM EST Blessing Mariee MD LAB BLOOD ORDERABLES [facility] [address] [place], [place] [address] [phone] documented in this encounter Visit Diagnoses Diagnosis Heart failure, unspecified (CMS/HCC) Heart failure, unspecified Chronic obstructive pulmonary disease, unspecified (CMS/HCC) documented in this encounter Care Teams Leasing Consultant Relationship Specialty Start Date End Date Chico Bojorquez MD [address] [place] [address] PCP - General Internal Medicine 02/18/18 documented as of this encounter
--- OUTSIDE RECORDS SUMMARY | 2024-11-26 09:14 | XMS_ITS | Encounter Summary ---
Author Organization [facility] Address [address] [place] [address] Care Team Providers Care Intellectual Property Lawyer Name Role Phone Chico Bojorquez MD Primary Care Provider [phone] Encounter Details Date Type Department Care Team (Late Contact Info) Description 10/31/2022 Scanned Document [facility] Pulmonary [address] [phone] Pulmonary, Scan Social History Tobacco Use Types [...] Description 12/23/2024 11:00 AM EST Office Visit [facility] Pulmonary [place] [address] [phone] Lorie Mathew MD [address] [phone] documented as of this encounter Visit Diagnoses Not on filedocumented in this encounter Care Teams Intellectual Property Lawyer Relationship Specialty Start Date End Date Chico Bojorquez MD [address] [place] [address] [place] [phone] PCP - General Internal Medicine 12/04/17 documented as of this encounter
== END 2024-11-26 09:47 | disposition home or self-care (01) ==
PROVIDERS: Visit Provider Internal Medicine Cardiovascular Disease
DX: J96.21 Acute and chronic respiratory failure with hypoxia (principal); R03.0 Elevated blood-pressure reading, without diagnosis of hypertension; Z01.810 Encounter for preprocedural cardiovascular examination; R94.31 Abnormal electrocardiogram [ECG] [EKG]
CPT/HCPCS: 93010; 99214; G2211

== ENCOUNTER → 2024-11-26 09:06 | Outpatient (BNVA) | payer MEDICARE, SELFPAY | PROVIDERS: Visit Provider Internal Medicine Cardiovascular Disease | DX: Z01.810 Encounter for preprocedural cardiovascular examination (principal); J44.9 Chronic obstructive pulmonary disease, unspecified; J96.21 Acute and chronic respiratory failure with hypoxia; R09.89 Other specified symptoms and signs involving the circulatory and respiratory systems | CPT/HCPCS: 93005; 99212 ==

== ENCOUNTER 2024-12-29 15:05 | Outpatient (REF) | payer MEDICARE, SELFPAY ==
[2024-12-29 15:28] LABS: Basophils Percent Auto 1.1 % (0-2); Hemoglobin 11.6 g/dl (14.0-18.0); Mean Corpuscular Volume 86.6 fL (80.0-98.0); Neutrophils Percent Auto 68.9 % (45-73); SCAN SMEAR FLAG 1
[2024-12-29 15:30] LABS: Basophils Absolute Auto 0.1 X10*3/uL (0.0-0.2); Eosinophils Absolute Auto 1.6 X10*3/uL (0.0-0.4); Eosinophils Percent Auto 12.8 % (0-4); Hematocrit 37.5 % (42.0-52.0); Imm Gran Abs Auto 0.05 X10*3/uL (0.00-0.03); Imm Gran Pct Auto 0.4 % (0.0-0.4); Lymphocytes Percent Auto 8.5 % (20-40); MANUAL DIFF FLAG SCAN; Mean Corpuscular HGB Conc 30.9 g/dl (31.0-36.0); Mean Corpuscular Hemoglobin 26.8 pg (27.0-33.0); Monocytes Percent Auto 8.3 % (2-11); Neutrophils Absolute Auto 8.5 x10*3/uL (2.0-8.3); PLT CLUMP 1; Red Blood Count 4.33 X10*6/uL (4.60-5.80); Red Cell Distribution Width 21.1 % (11.0-16.0)
[2024-12-29 15:38] LABS: PLT ABN DIST 1; White Blood Count 12.3 X10*3/uL (4.8-10.8)
[2024-12-29 15:42] LABS: Iron 32 mcg/dL (45-160); Percent Iron Saturation 13 % (15-50); Total Iron Binding Capacity 239 mcg/dL (228-428); Unsaturated Iron Binding 207 ug/dL
[2024-12-29 15:57] LABS: SLIDE REVIEW VERIFIED
--- OUTSIDE RECORDS SUMMARY | 2024-12-29 18:21 | XMS_ITS | Encounter Summary ---
Author Organization [facility] Address [address] [place] [address] Care Team Providers Care Internet Marketing Intern Name Role Phone Chico Bojorquez MD Primary Care Provider [phone] Reason for Visit * Reason Comments Advice Only Encounter Details Date Type Department Care Team ([facility] st Contact Info) Description 12/28/2024 Telephone [facility] [address] [phone] Lorie Mathew MD [address] [place] [phone] Advice Only Social History Tobacco Use Types Packs/Day Years [...] encounter Miscellaneous Notes * Telephone Encounter - Lorie Mathew MD - 12/28/2024 12:14 PM EDT It keeps going to her voicemail.. If she calls back: If PET scan is the one from [facility] from July 2024. There is no PET avid nodules --> no need for radiation for these. If there is a PET scan after this one, I do not have the report for it. Please obtain it * Telephone Encounter - Lorie Mathew MD - 12/28/2024 12:14 PM EDT ----- Message from Network Strategist Makenzie Hyatt MA sent at 12/28/2024 11:32 AM EDT ----- Daughter is asking for a call back documented in this encounter Plan of Treatment Not on file documented as of this encounter Visit Diagnoses Not on filedocumented in this encounter Care Teams Internet Marketing Intern Relationship Specialty Start Date End Date Chico Bojorquez MD [address] [place] [address] [place] [address] PCP - General Internal Medicine 12/04/17 documented as of this encounter
--- OUTSIDE RECORDS SUMMARY | 2024-12-29 18:21 | XMS_ITS ---
Author Organization Chico Bojorquez MD Address [address] [place] [phone] Care Team Providers Care Chief Operator Reformer Name Role Phone BarbaraSamy plascencian Primary Care Provider REASON FOR VISIT ? to take tylenol Encounters Encounter Location Date Provider Diagnosis Chico Bojorquez MD 10 [facility] [address] [place] [phone] 10/29/2024 Chico Bojorquez Plan Of Treatment Next Appt Details Provider Name:Chico Clark ier, 04/13/2025 01:30:00 PM, [address], [address] [place] [address], [phone], Progress Notes * Too YOUNGDOB: (89 yo M)Acc No.[id number]:10/29/2024 Patient:?Too Young :1935???Age:89 Y???Sex:Male Address:[address] [place] [id number] * true * Date:? Generated for Nikolay tejeda/Keith/Shannon on:?12/29/2024 06:21 PM EDT
--- OUTSIDE RECORDS SUMMARY | 2024-12-29 18:22 | XMS_ITS | Encounter Summary ---
Author Organization [facility] Address [address] [place] [address] Care Team Providers Care Election Judge Name Role Phone Chico Bojorquez MD Primary Care Provider [phone] Encounter Details Date Type Department Care Team (Late st Contact Info) Description 08/04/2021 Scanned Document [facility] PULMONOLGY SCAN Lorie Mathew MD 85 [facility] [address] [place] [address] Social History Tobacco Use Types Packs/Day Years [...] on filedocumented in this encounter Care Teams Election Judge Relationship Specialty Start Date End Date Chico Bojorquez MD [address] [place] [address] [place] [address] PCP - General Internal Medicine 12/04/17 documented as of this encounter
--- OUTSIDE RECORDS SUMMARY | 2024-12-29 18:22 | XMS_ITS | Encounter Summary ---
Author Organization [facility] Address [address] [place] [address] Care Team Providers Care Change Management Facilitator Name Role Phone Chico Bojorquez MD Primary Care Provider [phone] Encounter Details Date Type Department Care Team (Late st Contact Info) Description 09/26/2023 Telephone [facility] Vascular & Endovascular Surgery [address] [place] [phone] Yony Boyd MD 201 [facility] [address] [place] [address] Social History Tobacco Use Types Packs/Day Years [...] - Paulette Figueroa - 09/26/2023 3:20 PM ESTSummarlizeth: bryson/ly Patient daughter called to cancel his appointments that are scheduled for 10/03/23 She would like acall back at [phone] documented in this encounter Plan of Treatment Not on file documented as of this encounter Visit Diagnoses Not on filedocumented in this encounter Care Teams Change Management Facilitator Relationship Specialty Start Date End Date Chico Bojorquez MD [address] [place] [address] Dr Rashid, [place] [address] PCP - General Internal Medicine 12/04/17 documented as of this encounter
--- OUTSIDE RECORDS SUMMARY | 2024-12-29 18:22 | XMS_ITS | Encounter Summary ---
Author Organization [facility] Address [address] [place] [address] Care Team Providers Care Supervisor Calibration Name Role Phone Chico Bojorquez MD Primary Care Provider [phone] Encounter Details Date Type Department Care Team (Late st Contact Info) Description 07/17/2021 Scanned Document [facility] PULMONOLGY SCAN Lorie Mathew MD [address] [facility] [address] [place] [address] Social History Tobacco Use Types Packs/Day Years [...] on filedocumented in this encounter Care Teams Supervisor Calibration Relationship Specialty Start Date End Date Chico Bojorquez MD [address] [place] [address] [place] [address] PCP - General Internal Medicine 12/04/17 documented as of this encounter
--- OUTSIDE RECORDS SUMMARY | 2024-12-29 18:22 | XMS_ITS | Encounter Summary ---
Author Organization [facility] Address [address] [place] [address] Care Team Providers Care Fur Cutting Machine Operator Name Role Phone Chico Bojorquez MD Primary Care Provider [phone] Encounter Details Date Type Department Care Team (Late st Contact Info) Description 05/08/2022 Scanned Document [facility] Pulmonary [place] 85 [facility] [address] [place] [phone] Pulmonary, Scan Social History Tobacco Use [...] on filedocumented in this encounter Care Teams Fur Cutting Machine Operator Relationship Specialty Start Date End Date Chico Bojorquez MD [address] [place] [address] [place] [address] PCP - General Internal Medicine 12/04/17 documented as of this encounter
--- OUTSIDE RECORDS SUMMARY | 2024-12-29 18:22 | XMS_ITS | Encounter Summary ---
Author Organization [facility] Address [address] [place] [address] Care Team Providers Care Dressmaker Or Tailor Name Role Phone Chico Bojorquez MD Primary Care Provider [phone] Encounter Details Date Type Department Care Team (Late st Contact Info) Description 10/17/2024 Lab Requisition [facility] Lab [address] [facility] [place] [address] Danuta Mitchell MD [address] [place] [address] Peripheral vascular disease, unspecified (CMS/HCC); Heart failure, unspecified (CMS/HCC); Chronic obstructive pulmonary disease, unspecified (CMS/HCC) Social History Tobacco Use Types Packs/Day Years Used Date Smoking Tobacco: Never Assessed Sex and Gender Information Value Date Recorded Sex Assigned at Not on file Legal Sex Male 1:21 AM EST Gender Identity Not on file Sexual Orientation [...] AM EST) WBC 9.9 4.8 - 10.8 [facility] LAB HEMETOLOGY METHOD 10/19/2024 9:34 AM EST [facility] LAB RBC 3.80(L) 4.50 - 5.50 M/mcL LAB HEMETOLOGY METHOD 10/19/2024 9:34 AM [facility] LAB Hemoglobin 8.1(L) 13.5 - 17.5 g/dL LAB HEMETOLOGY METHOD 10/19/2024 9:34 AM [facility] LAB Hematocrit 28.7(L) 42.0 - 54.0 % LAB HEMETOLOGY METHOD 10/19/2024 9:34 AM [facility] LAB MCV 75.1(L) 79.0 - 98.0 FL LAB HEMETOLOGY METHOD 10/19/2024 9:34 AM [facility] LAB MCH 21.2(L) 27.0 - 32.0 pcg LAB HEMETOLOGY METHOD 10/19/2024 9:34 AM [facility] LAB MCHC 28.2(L) 32.0 - 37.0 g/dL LAB HEMETOLOGY METHOD 10/19/2024 9:34 AM [facility] LAB RDW 30.7(H) 11.0 - 15.0 % LAB HEMETOLOGY METHOD 10/19/2024 9:34 AM [facility] LAB Platelets 307 130 - 400 K/mcL LAB HEMETOLOGY METHOD 10/19/2024 9:34 AM [facility] LAB MPV 9.7 7.0 - 11.0 FL LAB HEMETOLOGY METHOD 10/19/2024 9:34 AM [facility] LAB NRBC 0.0 <1.0 % LAB HEMETOLOGY METHOD 10/19/2024 9:34 AM [facility] LAB NRBC Absolute 0.00 <0.10 K/mcL LAB HEMETOLOGY METHOD 10/19/2024 9:34 AM [facility] LAB Blood Venous blood specimen / Unknown Venipuncture / Unknown 10/19/2024 6:54 AM EST 10/19/2024 8:28 AM EST us Danuta Mitchell MD LAB BLOOD ORDERABLES Final Resul t [facility] ([facility] LAB [address] [place] [address], documented in this encounter Visit Diagnoses Diagnosis Peripheral vascular disease, unspecified (CMS/HCC) Peripheral vascular disease, unspecified Heart failure, unspecified (CMS/HCC) Heart failure, unspecified Chronic obstructive pulmonary disease, unspecified (CMS/HCC) documented in this encounter Care Teams Dressmaker Or Tailor Relationship Specialty Start Date End Date Chico Bojorquez MD PCP - General Internal Medicine 02/18/18 documented as of this encounter
--- OUTSIDE RECORDS SUMMARY | 2024-12-29 18:22 | XMS_ITS | Encounter Summary ---
Author Organization [facility] Address [address] [place] [address] Care Team Providers Care Cementer Name Role Phone Chico Bojorquez MD Primary Care Provider [phone] Encounter Details Date Type Department Care Team (Late st Contact Info) Description 04/21/2024 Scanned Document [facility] Pulmonary [place] [address] [place] [phone] Lorie Mathew MD [address] [place] [address] [address] [place] [address] Social History Tobacco Use Types Packs/Day Years [...] on filedocumented in this encounter Care Teams Cementer Relationship Specialty Start Date End Date Chico Bojorquez MD [address] [place] [address] Dr Rashid [place] [id number] PCP - General Internal Medicine 12/04/17 documented as of this encounter
--- OUTSIDE RECORDS SUMMARY | 2024-12-29 18:22 | XMS_ITS | Encounter Summary ---
Author Organization [facility] Address [address] [place] [address] Care Team Providers Care Counseling Services Manager Name Role Phone Chico Bojorquez MD Primary Care Provider [phone] Encounter Details Date Type Department Care Team ([facility] st Contact Info) Description 12/23/2024 Telephone [facility] [address] [phone] Lorie Mathew MD [address] [place] [address] Social History Tobacco Use Types Packs/Day Years [...] Encounter - Lorie Mathew MD - 12/28/2024 10:35 AM EDT Attempted to call daughter again. Left message on voicemail She had told me PET was from [facility] [employer] [employer] [facility] but the one we have on file is from [facility]. If that is the latest PET scan, there was no FDG avid spots to treat documented in this encounter Plan of Treatment Not on file documented as of this encounter Visit Diagnoses Not on filedocumented in this encounter Care Teams Counseling Services Manager Relationship Specialty Start Date End Date Chico Bojorquez MD [address] [place] [address] [place] [address] PCP - General Internal Medicine 12/04/17 documented as of this encounter
--- OUTSIDE RECORDS SUMMARY | 2024-12-29 18:22 | XMS_ITS | Encounter Summary ---
Author Organization [facility] Address [address] [place] [address] Care Team Providers Care Marketing Analyst Name Role Phone Chico Bojorquez MD Primary Care Provider [phone] Reason for Visit * Reason Comments Other Follow up Pre-op Exam Pre op exam Encounter Details Date Type Department Care Team (Late st Contact Info) Description 11/30/2024 1:00 PM EST Office Visit [facility] Pulmonary [address] [phone] Lorie Mathew MD [address] [address] Chronic obstructive pulmonary disease, unspecified COPD type (HCC) (Primary Dx); Preoperative respiratory examination; Pulmonary nodule; PAD (peripheral artery disease); Atherosclerosis of [place] artery of both lower extremities with intermittent claudication Social History Tobacco Use Types Packs/Day Years [...] AM EST documented as of this encounter Last Filed Vital Signs Vital Sign Reading Time Taken Comments Blood Pressure 138/71 11/30/2024 1:05 PM EST Pulse 75 11/30/2024 1:05 PM EST Temperature 37.1 ??C (98.8 ??F) 11/30/2024 1:05 PM ES T Respiratory Rate - - Oxygen Saturation 93% 11/30/2024 1:05 PM EST Inhaled Oxygen Concentration - - Weight 65.8 kg (145 lb) 11/30/2024 1:05 PM EST Height 172.7 cm (5' 8 ) 11/30/2024 1:05 PM EST Body Mass Index 22.05 11/30/2024 1:05 PM EST documented in this encounter Progress Notes * Hever Mayers MA - 12/08/2024 12:21 PM EST [facility] only faxed over the report. Called them back they stated that they can fax over the report and not the images. They can only send a disk of the images and would have to check with the operations manager to fax over the images. [facility] [employer] was unavailable at the moment. * Hever Mayers MA - 12/08/2024 11:54 AM EST Called [facility], they stated that they will have to send over the message to Terri to faxover the pt's PET scan because she is the only one that is able to break the glass. * Chaparro Rajan DO - 11/30/2024 1:00 PM EST Images from the original note were not included. Division of Pulmonary, Critical Care, and Sleep Medicine 85 [facility], [address], [place] [address] PULMONARY FOLLOW UP NOTE Date: November 30, 2024 Name: Too Young Date of : 1935 Referring M.D.: Chico Bojorquez MD Impression and Recommendations: 89 y.o. year old adult with a past medical history significant for hypertension, hypercholesterolemia, former smoker (30+ pack years), found to be hypoxic on exertion at vascular surgery office on 05/05/2021, referred to pulmonary for further evaluation now here for follow up. Pulmonary nodules - Noted on recent CT scan from June throughout his PCP. Report being scanned in today. - Subsequent PET scan done through [facility], they will fax over the results of the scan. 2. Chronic obstructive pulmonary disease, unspecified COPD type (HCC) - Doing well, no issues. - Continue Trelegy - Sparingly using his albuterol - Using 2L oxygen continuously. 3. Preop examination - Overall, moderate-high risk for procedure given his overall health though should the procedure bedeemed necessary then he may proceed accordingly without any further pulmonary testing. Recent pulmonary visit: 09/24/2022 - Re-ordered for Trelegy as he was not taking it. Will arrange for nebulizer machine and solution 06/29/2022 - CXR (was normal), Anoro to Trelegy. Could not perform spirometry well 12/04/2021 - Had PFTs and CT chest performed by outside scaler packer. Continue Anoro Chaparro Resendez [facility] Pulmonary and Critical Care Medicine [phone] Interim History Doing well overall. Having some bloody bowel movements No respiratory issues. Using Trelegy once daily, no real need for albuterol. No issues with oxygen, running continuously at 2L. Pulmonary History: Smoking status - Former smoker, quit 35 years ago. 2PPD x 25-27 years Reports some exposure to Asbestos Denies reflux or heartburn Occupation - Prior certified marine mechanic Patient is from [facility], here for second opinion Sees Dr. Michael Urrutia Present Medications: Current Outpatient Medications Medication Sig Dispense Refill albuterol (PROVENTIL HFA; VENTOLIN HFA) 108 (90 Base) MCG/ACT inhaler INHALE 2 PUFFS EVERY 4 TO 6 HOURS NEEDED FOR SHORTNESS OF BREATH OR WHEEZING FOR 60 DAYS 1 each 3 albuterol (PROVENTIL) (0.083%) 2.5 mg/3 mL nebulizer solution Take 3 mL (2.5 mg total) by nebulization every 4 (four) hours as needed for wheezing or shortness of breath. 75 mL 3 atorvastatin (LIPITOR) 10 MG tablet Take 1 tablet (10 mg total) by mouth daily. azithromycin (ZITHROMAX) 250 MG tablet TAKE 1 TABLET ORALLY DAILY FOR 4 DAYS START ON DAY 2 OF THERAPY B Complex Vitamins (VITAMIN-B COMPLEX) Tab Take by mouth. betamethasone dipropionate augmented (DIPROLENE-AF) 0.05 % cream Apply topically daily. 0 cholecalciferol (CHOLECALCIFEROL) 25 MCG (1000 UT) tablet Take 1 tablet (1,000 Units total) by mouth daily. citalopram (CeleXA) 20 MG tablet Take 1 tablet (20 mg total) by mouth daily. 3 ferrous sulfate 325 (65 FE) MG tablet Take 1 tablet (325 mg total) by mouth daily. fluticasone (FloNASE) 50 mcg/spray nasal spray SPRAY 1 SPRAY INTO EACH NOSTRIL ONCE DAILY talmwtuhgmz-piwlsbeajozw-ajwnmxplzq (TRELEGY ELLIPTA) 200-62.5-25 mcg/act inhaler Inhale 1 puff daily. 90 each 3 ipratropium (ATROVENT) 0.06 % nasal spray 2 SPRAYS EACH NOSTRIL 3 TIMES A DAY lisinopril (PRINIVIL,ZeSTRIL) 5 MG tablet Take 1 tablet (5 mg total) by mouth daily. naproxen sodium (ALEVE) 220 mg tablet 1 tablet with food or milk as needed Nebulizer [facility] Nebulizer with all supplies, mask version instead of nasal cannula for oxygen, [place] 99, dx:J44.9 1 each 0 OMEprazole (PriLOSEC) 20 MG capsule oxybutynin (DITROPAN XL) 15 MG 24 hr tablet Take by mouth. Oxygen Please test patient for OCD, POC. Maintain saturation > or = 90% Dx J44.9 Length 99 1 supply 99 rOPINIRole (REQUIP) 1 MG tablet TAKE 1 TALET BY MOUTH 1 TO 3 HOURS BEFORE BEDTIME sildenafil (VIAGRA) 100 MG tablet TAKE 1/2 OR 1 TABLET BY MOUTH NEEDED ONCE A DAY.. traMADol (ULTRAM) 50 MG tablet TAKE 1/2 TABLET BY MOUTH TWICE DAILY NEEDED FOR 7 DAYS Xarelto 2.5 MG tablet TAKE 1 TABLET BY MOUTH TWICE A DAY 60 tablet 3 No current facility-administered medications for this visit. Allergies: Patient has no known allergies. Past Medical History: Past Medical History: Diagnosis Date Depression Hyperlipidemia Prostate cancer (HCC) Past Surgical History: Past Surgical History: Procedure Laterality Date CIRCUMCISION ADULT HERNIA REPAIR PROSTATECTOMY 2004 ROTATOR CUFF REPAIR Bilateral Smoking: reports that Too quit smoking about 70 years ago. Too's smoking use included cigarettes. Too has never used smokeless tobacco. Vitals: 02/10/25 1305 BP: 138/71 Pulse: 75 Temp: 98.8 ??F (37.1 ??C) SpO2: 93% Weight: 65.8 kg (145 lb) Height: 1.727 m (5' 8 ) Exam: General: alert, appears stated age and cooperative Throat: lips, mucosa, and tongue normal; teeth and gums normal Lungs: diminished bilaterally Chest wall: no tenderness Heart: regular rate and rhythm, S1, S2 normal, no murmur, rub or gallop Extremities: extremities normal, atraumatic, no cyanosis or edema Review of diagnostic tests No results found for: WBC , HGB , HCT , MCV , PLT No results found for: GLUC , CALCIUM , NA , K , CO2 , CL , BUN , CREAT 06/29/2022 06/29/2022 - FINDINGS: The heart, great vessels, pulmonary vasculature and mediastinum are normal. The lungs show no focal infiltrate, effusion or pneumothorax. There is biapical pleural scarring. There is no acute osseous abnormality. 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 A left shoulder are classified is noted. IMPRESSION: No active cardiopulmonary disease. I have personally reviewed the imaging studies and verified the reports. Associated attestation - Lorie Mathew MD - 12/09/2024 8:09 AM EST Images from the original note were not included. I was physically present during the service to the patient and/or personally examined the patient and I was directly involved in the management plan and recommendations of the care provided to the patient. I reviewed the history and the physical exam as documented by the resident/fellow. I have personally reviewed history, labs, and radiology. I confirm the findings and plan in the housestaff note with the following revisions/addendum: I have discussed my plans with the resident/fellow. Patient's pulmonary symptoms remain stable on Trelegy. Rarely uses albuterol. Remains high risk for lexi-procedural pulmonary complications due to age and oxygen dependency. Patient not interested in chemoradiation therapy. We spoke briefly about SBRT if PET scan was concerning for malignancy. Daughter to fax us the report Report reviewed, no PET avid nodules documented in this encounter Plan of Treatment Not on file documented as of this encounter Visit Diagnoses Diagnosis Chronic obstructive pulmonary disease, unspecified COPD type (HCC)- Primary Preoperative respiratory examination Pre-operative respiratory examination Pulmonary nodule Other diseases of lung, not elsewhere classified PAD (peripheral artery disease) Unspecified peripheral vascular disease Atherosclerosis of [place] artery of both lower extremities with intermittent claudication documented in this encounter Care Teams Marketing Analyst Relationship Specialty Start Date End Date Chico Bojorquez MD [address] [place] [address] Dr Landry [address] [place] [address] PCP - General Internal Medicine 12/04/17 documented as of this encounter
--- OUTSIDE RECORDS SUMMARY | 2024-12-29 18:22 | XMS_ITS | Clinical Summary ---
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 TAKE 1 TABLET BY MOUTH TWICE A DAY 60 tablet 3 08/28/2023 Active Active Problems Problem Noted Date Diagnosed Date Atherosclerosis of rampart ar riya of extremity with intermittent claudication 12/11/2021 PAD (peripheral artery disease) 05/04/2021 Chronic obstructive pulmonary disease 05/04/2021 Encounters Date Type Department Care Team Description 12/28/2024 Telephone [facility] [address] [place] [phone] Lorie Mathew MD Advice Only 12/23/2024 Telephone [facility] [place] [address] [place] [phone] Lorie Mathew MD 12/16/2024 Telephone [facility] [address] [place] [phone] Lorie Mathew MD Other 12/16/[address] [place] [phone] Lorie Mathew MD 12/08/2024 4:20 PM EST Ancillary Procedure [facility] Radiology [address] [place] [address] Provider, File Room 12/08/2024 Orders Only [address] [phone] Chico Bojorquez MD 11/30/2024 1:00 PM EST Office Visit [address] [phone] Lorie Mathew MD Chronic obstructive pulmonary disease, unspecified COPD type (HCC) (Primary Dx); Preoperative respiratory examination; Pulmonary nodule; PAD (peripheral artery disease); 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 Hypertension Mother cause of at age 44 Relation Name Status Comments Father Mother Social History Tobacco Use Types Packs/Day Years Used Date Smoking Tobacco: Former Cigarettes Q uit: 1954 Smokeless Tobacco: Never Tobacco Cessation:Counseling Given: Not [...] 11/30/2024 1:05 PM ES T Respiratory Rate 18 06/09/2018 2:44 PM EDT Oxygen Saturation 93% 11/30/2024 1:05 PM EST Inhaled Oxygen Concentration - - Weight 65.8 kg (145 lb) 11/30/2024 1:05 PM EST Height 172.7 cm (5' 8 ) 11/30/2024 1:05 PM EST Body Mass Index 22.05 11/30/2024 1:05 PM EST Plan of Treatment Health Maintenance Due Date [...] Procedure Name Priority Date/Time Associated Diagnosis Comments TRICIA ARCHIVE FOR REFERENCE ONLY CT Routine 12/08/2024 4:20 PM EST from Last 3 Months Results * TRICIA Archive for reference only CT (12/08/2024 4:20 PM EST) Sabrina MARSHALL - 12/08/2024 4:17 PM EST This order has been auto-finalized and does not contain a result. File Room Provider IMG DIGITIZE FILMS ROLANDO [phone] from Last 3 Months Care Teams Axle And Frame Mechanic Relationship Specialty Start Date End Date Chico Bojorquez MD [address] [place] [address] Dr Rash[place] [phone] PCP - General Internal Medicine 12/04/17
--- OUTSIDE RECORDS SUMMARY | 2024-12-29 18:22 | XMS_ITS | Encounter Summary ---
Author Organization [facility] Address [address] [place] [address] Care Team Providers Care Er Manager Name Role Phone Chico Bojorquez MD Primary Care Provider [phone] Encounter Details Date Type Department Care Team ([facility] st Contact Info) Description 12/16/2024 Telephone [facility] Pulmonary [address] [phone] Lorie Mathew MD [address] [place] [address] Social History Tobacco Use Types Packs/Day Years [...] encounter Miscellaneous Notes * Telephone Encounter - Makenzie Nichols MA - 12/16/2024 2:01 PM EST Patient daughter call and left requesting for pulmonary chart notes be faxed to patient PCP for clearance. Chart notes faxed to [phone] attention to Dr Bojorquez and patient daughter was informed documented in this encounter Plan of Treatment Not on file documented as of this encounter Visit Diagnoses Not on filedocumented in this encounter Care Teams Er Manager Relationship Specialty Start Date End Date Chico Bojorquez MD [address] [place] [address] Dr [place]id, [place] [address] PCP - General Internal Medicine 12/04/17 documented as of this encounter
--- OUTSIDE RECORDS SUMMARY | 2024-12-29 18:22 | XMS_ITS | Encounter Summary ---
Author Organization [facility] Address [address] [place] [address] Care Team Providers Care Skip Loader Name Role Phone Chico Bojorquez MD Primary Care Provider [phone] Encounter Details Date Type Department Care Team (Latest Contact Info) Description 11/30/2024 Travel Social History Tobacco Use Types Packs/Day Years [...] on filedocumented in this encounter Care Teams Skip Loader Relationship Specialty Start Date End Date Chico Bojorquez MD [address] [place] [address] [place] [address] PCP - General Internal Medicine 12/04/17 documented as of this encounter
--- OUTSIDE RECORDS SUMMARY | 2024-12-29 18:22 | XMS_ITS | Encounter Summary ---
Author Organization [facility] Address [address] [place] [address] Care Team Providers Care Energy Sales Broker Name Role Phone Chico Bojorquez MD Primary Care Provider [phone] Encounter Details Date Type Department Care Team (Late st Contact Info) Description 10/31/2022 Scanned Document [facility] Pulmonary [address] [phone] Pulmonary, Scan Social History Tobacco Use Types [...] on filedocumented in this encounter Care Teams Energy Sales Broker Relationship Specialty Start Date End Date Chico Bojorquez MD [address] [place] [address] [place] [address] PCP - General Internal Medicine 12/04/17 documented as of this encounter
--- OUTSIDE RECORDS SUMMARY | 2024-12-29 18:22 | XMS_ITS | Encounter Summary ---
Author Organization [facility] Address [address] [place] [address] Care Team Providers Care Maintenance Porter Name Role Phone Chico Bojorquez MD Primary Care Provider [phone] Encounter Details Date Type Department Care Team (Late st Contact Info) Description 07/28/2024 Orders Only [facility] Radiology [address] [place] [phone] Provider, File Room Social History Tobacco Use Types Packs/Day Years [...] on file documented as of this encounter Results * TRICIA Archive for reference only CT (12/08/2024 4:20 PM EST) Narrative ROLANDO - 12/08/2024 4:17 PM EST This order has been auto-finalized and does not contain a result. File Room Provider IMG DIGITIZE FILMS ROLANDO [phone] documented in this encounter Visit Diagnoses Not on filedocumented in this encounter Care Teams Maintenance Porter Relationship Specialty Start Date End Date Chico Bojorquez MD [address] [place] [address] [place] [address] PCP - General Internal Medicine 12/04/17 documented as of this encounter
--- OUTSIDE RECORDS SUMMARY | 2024-12-29 18:22 | XMS_ITS ---
Author Organization Chico Bojorquez MD Address [address] [place] [id number] Care Team Providers Care Surgery Scheduler Name Role Phone Chico Bojorquez Primary Care Provider Allergies No Known Allergies Results Component Value Reference Range Notes Complete Blood Count Auto Di ff (Not yet reviewed by provider) Interpretation: Performing Lab:[facility], [address] [place] [phone] Notes/Report: White Blood Count 12.3 4.8-10.8 X10*3/uL [...] 0.0-0.012 X10*3/uL CORRE CTED REPORT IRON PROFILE (Not yet review ed by provider) Interpretation: Performing Lab:[facility], [address] [place] [phone] Notes/Report: Iron 32 45-160 mcg/dL Total Iron [...] Complex Orally once a day Active Ipratropium Redding 0.06 % 2 sprays in each nostril Nasally Three times a day for 4 day(s) Active Aspirin 81 MG 1 tablet Orally Once a day for 30 day(s) Active Omeprazole 20 MG TAKE 1 CAPSULE BY MO UTH EVERY DAY Orally Once a day for [...] Lisinopril 5 MG TAKE 1 TABLET BY EVANGELINA EVERY DAY for 90 Unknown Fluticasone Propionate [...] Location Date Provider Diagnosis Chico Bojorquez MD [address] [place] [address] [place] [phone] 12/29/2024 Chico Bojorquez Essential hypertension I10 ; [...] iron deficiency anemia type (ICD-10 - D50.9) Plan Of Treatment Medication Medication Name Sig Start Date Stop Date Notes Furosemide 20 MG 1 tablet Orally Once a day 08/11/2024 Ferrous Sulfate 325 (65 Fe) MG TAKE 1 TA BLET BY MOUTH EVERY DAY FOR 30 DAYS Treatment Notes Assessment Notes Essential hypertension well controlled, will continue to monitor Chronic systolic congestive heart failur e stable on treatment Pending Test Test Name Order Date Complete Blood Count Auto Diff 5 IRON PROFILE 12/29/2024 Next Appt Details Follow Up: 3 Months, Reason: Provider Name:Chico robertsr, 04/13/2025 01:30:00 PM, [address] [facility], [address], [place], [place], [id number], Progress Notes * Too YOUNGDOB: [birth year] (89 yo M)Acc No.[id number]:12/29/2024 Progress Notes Patient:?Too YOUNG Provider:?Chico Bojorquez MD :1935???Age:89 Y???Sex:Male Ryan e:12/29/2024 Address:[address] [place] [address], [facility] Subjective: * Chief Complaints: * ???1. 2 month follow up appt . 2. Accompanied by daughter. * HPI: ???Symptom(s):?patient is? 89 yo male here for 2 month follow up visit, has been going around. * ROS:?General/Constitutional:?Denies?Chills.?Denies?Fatigue.?Denies?Fever.?Denies?Headache.?ENT:?Patient denies?decreased sense of smell, any loss of taste, sore throat.?Denies?Sore throat.?Respiratory:?Denies?Cough.?Denies?Shortness of breath at rest.?Denies?Shortness of breath with exertion.?Gastrointestinal:?Denies?Diarrhea.?Denies?Nausea.?Musculoskeletal:?Patient denies?muscle aches.?Peripheral Vascular:?Patient denies?red and blue toes.? * Medical History:?Prostate ca ncer, Hypertension, Depression, colonoscopy - 03/01/2008 repeat in 5 years; colonoscopy 10/20/2013 no further testing needed per Dr. Richards needed clearance for colonoscopy. went and it was decided not to do anything, Rotator cuff disorder. * Medications:?Taking Vitamin D 25 MCG (1000 UT) Tablet 1 tablet Orally Once a day , Taking Betamethasone Dipropionate 0.05 % Cream 1 application Externally Once a day , Taking Trelegy Ellipta 200-62.5-25 MCG/ACT Aerosol Powder Breath Activated 1 puff Inhalation Once a day , Taking Ipratropium Redding 0.06 % Solution 2 sprays in each nostril Nasally Three times a day , Taking Vitamin B50 Complex Tablet Extended Release Orally once a day , Taking Citalopram Hydrobromide 20 MG Tablet TAKE 1 TABLET BY MOUTH EVERY DAY , Taking Furosemide 20 MG Tablet 1 tablet Orally Once a day , Taking Omeprazole 20 MG Capsule Delayed Release TAKE 1 CAPSULE BY MOUTH EVERY DAY Orally Once a day , Taking Aspirin 81 MG Tablet Chewable 1 tablet Orally Once a day , Taking Fluticasone Furoate 27.5 MCG/SPRAY Suspension 1 puff in each nostril Nasally Once a day , Taking Furosemide 20 MG Tablet TAKE 1 TABLET BY MOUTH EVERY DAY FOR 30 DAYS , Taking Ferrous Sulfate 325 (65 Fe) MG Tablet TAKE 1 TABLET BY MOUTH EVERY DAY FOR 30 DAYS , Not-Taking/PRN rOPINIRole HCl 2 MG Tablet TAKE 1 TABLET BY MOUTH 1 TO 3 HOURS BEFORE BEDTIME ORALLY ONCE A DAY 30 DAYS 90 , Unknown Mupirocin Calcium 2 % Cream as directed Externally , Unknown Atorvastatin Calcium 10 MG Tablet TAKE 1 TABLET BY MOUTH EVERY DAY Orally Once a day , Unknown Sildenafil Citrate 100 MG Tablet 1/2 or 1tablet as needed Orally Once a day , Unknown Lisinopril 5 MG Tablet TAKE 1 TABLET BY MOUTH EVERY DAY , Unknown Fluticasone Propionate 50 MCG/ACT Suspension SPRAY 1 SPRAY INTO EACH NOSTRIL ONCE DAILY , Medication List reviewed and reconciled with the patient * Allergies:?N.K.D.A. Objective: * Vitals:?Ht: 68, Wt: 136, BMI :20.68, BP:118/50, Wt-k.69. weight is up 3 pounds since 10-27-24. * Examination: ???General Examination: ?GENERAL APPEARANCE:?pleasant, well nourished, well developed, in no acute distress.?HEAD:?normocephalic.?SKIN:?good turgor.?HEART:?regular rate and rhythm, no murmurs, rubs, gallops.?LUNGS:?no wheezes, rales, rhonchi, good air movement, clear to auscultation bilaterally.?EXTREMITIES:?no edema.? Assessment: * Assessment: 1.?Essential hypertension - I10???2.?Chronic systolic congestive heart failure - I50.22???3.?Iron deficiency anemia, unspecified iron deficiency anemia type - D50.9??? Plan: * Treatment: 2.?Chronic systolic congesti ve heart failure? Continue Furosemide Tablet, 20 MG, 1 tablet, Orally, Once a day.?LAB: Complete Blood Count Auto Diff (Collection Date & Time - 12/29/2024 01:30 PM) ?LAB: IRON PROFILE (Collection Date & Time - 12/29/2024 01:30 PM) Notes: stable on treatment?? 3.?Iron deficiency anemia, u nspecified iron deficiency anemia type? Continue Ferrous Sulfate Tablet, 325 (65 Fe) MG, TAKE 1 TABLET BY MOUTH EVERY DAY FOR 30 DAYS.?? * Procedure Codes:?08968 VENIP UNCT, ROUTINE* * Follow Up:?3 Months * * The named appointment provid er may or may not be the originator of this progress note, and it is not deemed complete until electronically signed by the appointment provider. Sign off status: Pending * Provider:?Chico Bojorquez MD Date:?0 12/29/2024 Generated for Nikolay tejeda/Keith/Mananitting on:?12/29/2024 06:22 PM EDT History and Physical Notes * HPI (History [...]
--- OUTSIDE RECORDS SUMMARY | 2024-12-29 18:22 | XMS_ITS | Encounter Summary ---
Author Organization [facility] Address [address] [place] [address] Care Team Providers Care Survey Operations Director Name Role Phone Chico Bojorquez MD Primary Care Provider [phone] Encounter Details Date Type Department Care Team (Late st Contact Info) Description 11/30/2024 Orders Only [facility] Pulmonary [place] [address] [facility] [address] [place] [phone] Pulmonary, Scan Social History Tobacco Use Types [...] Procedure Name Priority Date/Time Associated Diagnosis Comments CT SCAN EXTERNAL RESULT Routine 07/10/2024 1:25 PM EDT documented in this encounter Results * CT Scan External Result (07/10/2024 1:25 PM EDT) Anatomical Region Laterality Modality Computed Tomogra phy Scan Pulmonary IMG CT ORDERABLES documented in this encounter Visit Diagnoses Not on filedocumented in this encounter Care Teams Survey Operations Director Relationship Specialty Start Date End Date Chico Bojorquez MD [address] [place] [address] [place] [address] PCP - General Internal Medicine 12/04/17 documented as of this encounter
--- OUTSIDE RECORDS SUMMARY | 2024-12-29 18:22 | XMS_ITS | Encounter Summary ---
Author Organization [facility] Address [address] [place] [address] Care Team Providers Care Lead Android Developer Name Role Phone Chico Bojorquez MD Primary Care Provider [phone] Reason for Visit * Reason Comments Other Encounter Details Date Type Department Care Team ([facility] st Contact Info) Description 12/16/[address] [phone] Lorie Mathew MD [address] [place] [address] Other Social History Tobacco Use Types Packs/Day Years [...] Telephone Encounter - Lorie Mathew MD - 12/16/2024 2:41 PM EST Attempted to call daughter back. The PET scan report was reviewed with her in the office. Left number for her to call back documented in this encounter Plan of Treatment Not on file documented as of this encounter Visit Diagnoses Not on filedocumented in this encounter Care Teams Lead Android Developer Relationship Specialty Start Date End Date Chico Bojorquez MD [address] [place] [address] [place] [address] PCP - General Internal Medicine 12/04/17 documented as of this encounter
--- OUTSIDE RECORDS SUMMARY | 2024-12-29 18:22 | XMS_ITS | Encounter Summary ---
Author Organization [facility] Address [address] [place] [address] Care Team Providers Care Guest Room Attendant Name Role Phone Chico Bojorquez MD Primary Care Provider [phone] Encounter Details Date Type Department Care Team (Late st Contact Info) Description 10/25/2023 Scanned Document [facility] Pulmonary [address] [phone] Pulmonary, Scan Social History Tobacco Use Types [...] on filedocumented in this encounter Care Teams Guest Room Attendant Relationship Specialty Start Date End Date Chico Bojorquez MD [address] [place] [address] [place] [address] PCP - General Internal Medicine 12/04/17 documented as of this encounter
--- OUTSIDE RECORDS SUMMARY | 2024-12-29 18:22 | XMS_ITS | Encounter Summary ---
Author Organization [facility] Address [address] [place] [address] Care Team Providers Care Dry Boss Name Role Phone Chico Bojorquez MD Primary Care Provider [phone] Encounter Details Date Type Department Care Team (Late st Contact Info) Description 12/08/2024 Orders Only [address] [phone] Chico Bojorquez MD [address] [place] [address] Social History Tobacco Use Types Packs/Day Years [...] Procedure Name Priority Date/Time Associated Diagnosis Comments PET/CT F18 FDG SKULL BASE TO MID-THIGH - INITIAL TREATMENT Routine 07/28/2024 1:52 PM EDT documented in this encounter Results * PET/CT F18 FDG Skull to Mid Thigh (Initial Treatment) (07/28/2024 1:52 PM EDT) Anatomical Region Laterality Modality Positron Emissio n Tomography (PET) Chico Bojorquez MD IMG PET ORDERABLES documented in this encounter Visit Diagnoses Not on filedocumented in this encounter Care Teams Dry Boss Relationship Specialty Start Date End Date Chico Bojorquez MD [address] [place] [address] [place] [address] PCP - General Internal Medicine 12/04/17 documented as of this encounter
--- OUTSIDE RECORDS SUMMARY | 2024-12-29 18:22 | XMS_ITS | Clinical Summary ---
Author Organization [address] Address [address] [place] [address] Phone Care Team Providers Care Landscape Crew Member Name Role Phone Chico Bojorquez MD Primary Care Provider [phone] Encounters Date Type Department Care Team Description 10/17/2024 Lab Requisition [facility] Lab [address] [place] [phone] Danuta Mitchell MD Peripheral vascular disease, unspecified (CMS/HCC); Heart failure, unspecified (CMS/HCC); Chronic obstructive pulmonary disease, unspecified (CMS/HCC) 10/08/2024 Lab Requisition [facility] Lab [address] [place] [phone] Danuta Mitchell MD Vitamin D deficiency, unspecified; Unspecified dementia, unspecified severity, without behavioral disturbance, psychotic disturbance, mood disturbance, and anxiety (CMS/HCC); Anemia, unspecified 10/02/2024 Lab Requisition [facility] Lab [address] [place] [phone] Blessing Mariee MD Heart failure, unspecified (CMS/HCC); [...] Last Done Comments COVID-19 Vaccine (#1) 1940 DTaP,Tdap,and Td Vaccines (1 - Tdap) 1954 Pneumococcal Vaccine: 50+ Ye ars (1 of 2 - PCV) 1954 Zoster Vaccines (1 of 2) 1954 [...] patient's age to complete this topic Meningococcal B Vacine Aged Out No lo nger eligible based on patient's age to complete [...] K/mcL LAB HEMETOLOGY METHOD 10/19/2024 9:34 AM [facility] RBC 3.80(L) 4.50 - 5.50 M/mcL LAB HEMETOLOGY METHOD 10/19/2024 9:34 AM [facility] Hemoglobin 8.1(L) 13.5 - 17.5 g/dL LAB HEMETOLOGY METHOD 10/19/2024 9:34 AM [facility] Hematocrit 28.7(L) 42.0 - 54.0 % LAB HEMETOLOGY METHOD 10/19/2024 9:34 AM [facility] MCV 75.1(L) 79.0 - 98.0 FL LAB HEMETOLOGY METHOD 10/19/2024 9:34 AM [facility] MCH 21.2(L) 27.0 - 32.0 pcg LAB HEMETOLOGY METHOD 10/19/2024 9:34 AM EST [facility] MCHC 28.2(L) 32.0 - 37.0 g/dL LAB HEMETOLOGY METHOD 10/19/2024 9:34 AM EST [facility] RDW 30.7(H) 11.0 - 15.0 % LAB HEMETOLOGY METHOD 10/19/2024 9:34 AM [facility] Platelets 307 130 - 400 K/mcL LAB HEMETOLOGY METHOD 10/19/2024 9:34 AM EST [facility] MPV 9.7 7.0 - 11.0 FL LAB HEMETOLOGY METHOD 10/19/2024 9:34 AM EST [facility] NRBC 0.0 <1.0 % LAB HEMETOLOGY METHOD 10/19/2024 9:34 AM [facility] NRBC Absolute 0.00 <0.10 K/mcL LAB HEMETOLOGY METHOD 10/19/2024 9:34 AM EST [facility] Blood Venous blood specimen / Unknown Venipuncture / Unknown 10/19/2024 6:54 AM EST 10/19/2024 8:28 AM EST us Danuta Mitchell MD LAB BLOOD ORDERABLES Final Resul t [facility] [address] [place] [address], * Vitamin D 25 hydroxy (10/08/2024 7:26 AM EST) Vit D, 25-Hydroxy 37.4 30.0 - 80.0 ng/mL LAB CHEMISTRY METHOD 10/08/2024 11:01 AM EST [facility] Blood Venous blood specimen / Unknown Venipuncture / Unknown 10/08/2024 7:26 AM EST 10/08/2024 9:49 AM EST us Danuta Mitchell MD LAB BLOOD ORDERABLES Final Resul t Performing Organization Address [facility]/ZIP Co de Phone Number [facility] [address] [place] [address], [place] [phone] * Vitamin B12 (10/08/2024 7:26 AM EST) Vitamin B-12 426 250 - 900 pcg/mL LAB CHEMISTRY METHOD 10/08/2024 11:16 AM EST [facility] Blood Venous blood specimen / Unknown Venipuncture / Unknown 10/08/2024 7:26 AM EST 10/08/2024 9:49 AM EST us Danuta Mitchell MD LAB BLOOD ORDERABLES Final Resul t Performing Organization Address [facility] Co de Phone Number [facility] [address] [place] [address], [place] [phone] * (ABNORMAL) Basic metabolic panel (10/02/2024 6:53 AM EST) [facility] Sodium 140 133 - 145 mmol/L LAB CHEMISTRY METHOD 10/02/2024 11:18 AM [facility] Potassium 4.6 3.5 - 5.5 mmol/L LAB CHEMISTRY METHOD 10/02/2024 11:18 AM [facility] Chloride 106 96 - 110 mmol/L LAB CHEMISTRY METHOD 10/02/2024 11:18 AM [facility] CO2 26 21 - 32 mmol/L LAB CHEMISTRY METHOD 10/02/2024 11:18 AM [facility] Anion Gap 8 3 - 11 LAB CHEMISTRY METHOD 10/02/2024 11:18 AM [facility] Glucose 69(L) 70 - 100 mg/dL LAB CHEMISTRY METHOD 10/02/2024 11:18 AM [facility] BUN 27(H) 5 - 25 mg/dL LAB CHEMISTRY METHOD 10/02/2024 11:18 AM [facility] Creatinine 1.13 0.70 - 1.30 mg/dL LAB CHEMISTRY METHOD 10/02/2024 11:18 AM EST [facility] eGFR 63 >=60 mL/min/1. 73m2 LAB CHEMISTRY METHOD 10/02/2024 11:18 AM EST [facility] Comment:Calculation based on the??Chronic Kidney Disease Epidemiology Collaboration (CKD-EPI) equation refit??without adjustment for race. BUN/Creatinine Ratio 23.9 LAB CHEMISTRY METHOD 10/02/2024 11:18 AM EST [facility] Calcium 8.8 8.5 - 10.5 mg/dL LAB CHEMISTRY METHOD 10/02/2024 11:18 AM [facility] Blood Venous blood specimen / Unknown Venipuncture / Unknown 10/02/2024 6:53 AM EST 10/02/2024 9:14 AM EST us Blessing Mariee MD LAB BLOOD ORDERABLES Final Resul t [facility] [address] [place] [address], from Last 3 Months Insurance MEDICARE [facility] Care Teams Landscape Crew Member Relationship Specialty Start Date End Date Chico Bojorquez MD PCP - General Internal Medicine 02/18/18
--- OUTSIDE RECORDS SUMMARY | 2024-12-29 18:22 | XMS_ITS | Encounter Summary ---
Author Organization [facility] Address [address] [place] [address] Care Team Providers Care Overhauler Name Role Phone Chico Bojorquez MD Primary Care Provider [phone] Encounter Details Date Type Department Care Team (Late st Contact Info) Description 04/21/[address] [facility] Pulmonary Given [address] [place] [phone] Lorie Mathew MD [address] [place] [address] [address] [place] [address] Social History Tobacco Use Types Packs/Day Years [...] on filedocumented in this encounter Care Teams Overhauler Relationship Specialty Start Date End Date Chico Bojorquez MD [address] [place] [address] Dr Rashid [place] [id number] PCP - General Internal Medicine 12/04/17 documented as of this encounter
--- OUTSIDE RECORDS SUMMARY | 2024-12-29 18:22 | XMS_ITS | Encounter Summary ---
Author Organization [facility] Address [address] [place] [address] Care Team Providers Care Computer Language Coder Name Role Phone Chico Bojorquez MD Primary Care Provider Encounter Details Date Type Department Care Team (Late st Contact Info) Description 10/08/2024 Lab Requisition [facility] Main Lab [address] [facility] [place] [phone] Danuta Mitchell MD [address] [place] [address] Vitamin D deficiency, unspecified; Unspecified [...] 25 hydroxy (10/08/2024 7:26 AM EST) Pathologist [facility] Vit D, 25-Hydroxy 37.4 30.0 - 80.0 ng/mL LAB CHEMISTRY METHOD 10/08/2024 11:01 AM EST [facility] Blood Venous blood specimen / Unknown Venipuncture / Unknown 10/08/2024 7:26 AM EST 10/08/2024 9:49 AM EST us Danuta Mitchell MD LAB BLOOD ORDERABLES Final Resul t Performing Organization Address [facility] Co de Phone Number [facility] [address] [place] [address], [place] [phone] * Vitamin B12 (10/08/2024 7:26 AM EST) [facility] Vitamin B-12 426 250 - 900 pcg/mL LAB CHEMISTRY METHOD 10/08/2024 11:16 AM EST [facility] Blood Venous blood specimen / Unknown Venipuncture / Unknown 10/08/2024 7:26 AM EST 10/08/2024 9:49 AM EST us Danuta Mitchell MD LAB BLOOD ORDERABLES Final Resul t Performing Organization Address City/[facility]/ZIP Co de Phone Number [facility] [address] [place] [address], [place] [phone] * (ABNORMAL) Complete blood count (10/08/2024 7:26 AM EST) [facility] WBC 13.3(H) 4.8 - 10.8 K/mcL LAB HEMETOLOGY METHOD 10/08/2024 10:33 AM EST [facility] RBC 4.00(L) 4.50 - 5.50 M/mcL LAB HEMETOLOGY METHOD 10/08/2024 10:33 AM [facility] Hemoglobin 7.8(L) 13.5 - 17.5 g/dL LAB HEMETOLOGY METHOD 10/08/2024 10:33 AM [facility] Hematocrit 27.4(L) 42.0 - 54.0 % LAB HEMETOLOGY METHOD 10/08/2024 10:33 AM [facility] MCV 69.2(L) 79.0 - 98.0 FL LAB HEMETOLOGY METHOD 10/08/2024 10:33 AM [facility] MCH 19.7(L) 27.0 - 32.0 pcg LAB HEMETOLOGY METHOD 10/08/2024 10:33 AM [facility] MCHC 28.5(L) 32.0 - 37.0 g/dL LAB HEMETOLOGY METHOD 10/08/2024 10:33 AM [facility] RDW 25.5(H) 11.0 - 15.0 % LAB HEMETOLOGY METHOD 10/08/2024 10:33 AM [facility] Platelets 285 130 - 400 K/mcL LAB HEMETOLOGY METHOD 10/08/2024 10:33 AM [facility] MPV 10.4 7.0 - 11.0 FL LAB HEMETOLOGY METHOD 10/08/2024 10:33 AM [facility] NRBC 0.0 <1.0 % LAB HEMETOLOGY METHOD 10/08/2024 10:33 AM [facility] NRBC Absolute 0.00 <0.10 K/mcL LAB HEMETOLOGY METHOD 10/08/2024 10:33 AM [facility] Blood Venous blood specimen / Unknown Venipuncture / Unknown 10/08/2024 7:26 AM EST 10/08/2024 9:49 AM EST us Danuta Mitchell MD LAB BLOOD ORDERABLES Final Resul t [facility] [address] [place] [address], documented in this encounter Visit Diagnoses Diagnosis Vitamin D deficiency, unspecified Unspecified dementia, unspecified severity, without behavioral disturbance, psychotic disturbance, mood disturbance, and anxiety (CMS/[facility]) Anemia, unspecified documented in this encounter Care Teams Computer Language Coder Relationship Specialty Start Date End Date Chico Bojorquez MD PCP - General Internal Medicine 02/18/18 documented as of this encounter
--- OUTSIDE RECORDS SUMMARY | 2024-12-29 18:22 | XMS_ITS ---
Author Organization Chico Bojorquez MD Address [address] [place] [phone] Care Team Providers Care Steam Cleaner Name Role Phone Chico Bojorquez Primary Care Provider Allergies No Known Allergies REASON FOR VISIT PH/TCM, Patient was dicharged from rehab this past weekend. Family wanted to keep this appointment,Daughter has recent labs Medications Medication SIG (Take, Route, Frequency, Duration) Notes Start Date End Date Status Ferrous Sulfate 325 (65 Fe) MG TAKE 1 TABLET BY MOUTH EVERY DAY FOR 30 DAYS Active Aspirin 81 MG 1 tablet Orally Once a day for 30 day(s) Active Omeprazole 20 MG TAKE [address] [facility] EVERY DAY Orally Once a day for 90 days Active rOPINIRole HCl 2 MG TAKE 1 TABLET BY EVANGELINA 1 TO 3 HOURS BEFORE BEDTIME ORALLY ONCE A DAY 30 DAYS 90 for 90 Not-Taking Fluticasone Furoate 27.5 MCG/SPRAY 1 puff in each nostril Nasally Once a day for 30 11/24/2013 Active Furosemide 20 MG TAKE 1 TABLET BY EVANGELINA EVERY DAY FOR 30 DAYS Active Furosemide 20 MG 1 tablet Orally Once a day 08/11/2024 Active Citalopram Hydrobromide 20 MG TAKE 1 TABLET BY MOUTH EVERY DAY for 90 Active Vitamin B50 Complex Orally once a day Active Ipratropium [place] 0.06 % 2 sprays in each nostril Nasally Three times a day for 4 day(s) Active Fluticasone Propionate 50 MCG/ACT SPRAY 1 SPRAY INTO EACH NOSTRIL ONCE DAILY for 60 Unknown Trelegy Ellipta 200-62.5-25 MCG/ACT 1 puff Inhalation Once a day Active Betamethasone Dipropionate 0.05 % 1 application Externally Once a day Active Lisinopril 5 MG TAKE 1 TABLET BY EVANGELINA TH EVERY DAY for 90 Unknown Sildenafil Citrate 100 MG / or 1tablet as needed Orally Once a day 04/14/2021 Unknown Atorvastatin Calcium 10 MG TAKE 1 TABLET BY MOUTH EVERY DAY Orally Once a day for 90 days Unknown Mupirocin Calcium 2 % as directed Externally Unknown Vital Signs Blood pressure systolic 118 mm Hg 10/27/19 25 Blood pressure diastolic 52 mm Hg 025 Height 68 in 10/27/2024 Weight 133 lbs 10/27/2024 BMI 20.22 kg/m2 10/27/2024 weight is up 3 pounds since 09-21-24 Encounters Encounter Location Date Provider Diagnosis Chico Bojorquez MD [address] [place] [address] [address] [place], [place] [phone] 10/27/2024 Chico Bojorquez Essential hypertension I10 ; Chronic systolic congestive heart failure I50.22 and Iron deficiency anemia, unspecified iron deficiency anemia type D50.9 Assessments Encounter Date Diagnosis (ICD Code) Assessment Notes Treatment Notes Treatment Clinical Notes Section Notes 10/27/2024 Essential hypertension (ICD-10 - I10) doing well 10/27/2024 Chronic systolic congestive heart failure (ICD-10 - I50.22) stable with no sign of chf, will continue current regiment 10/27/2024 Iron deficiency anemia, unspecified iron deficiency anemia type (ICD-10 - D50.9) is unable to get colonoscopy, will coontinue current regiment 10/27/2024 Other Total time spent on the date of the encounter is 35 minutes including both face to face time spent and time spent reviewing documentation, and counseling the patient. Plan Of Treatment Medication Medication Name Sig Start Date Stop Date Notes Ferrous Sulfate 325 (65 Fe) MG TAKE 1 TA BLET BY MOUTH EVERY DAY FOR 30 DAYS Furosemide 20 MG TAKE 1 TABLET BY EVANGELINA TH EVERY DAY FOR 30 DAYS Treatment Notes Assessment Notes Essential hypertension doing well Chronic systolic congestive heart failur e stable with no sign of chf, will continue current regiment Iron deficiency anemia, unsp ecified iron deficiency anemia type is unable to get colonoscopy, will coontinue current regiment Other Total time spent on the date of the encounter is 35 minutes including both face to face time spent and time spent reviewing documentation, and counseling the patient. Next Appt Details Follow Up: 2 Months, Reason: Provider Name:Chico Clark ier, 04/13/2025 01:30:00 PM, [address], [address], [place], [place], [id number], Progress Notes * HECTORTooDOB: 6 (89 yo M)Acc No.[id number]:10/27/2024 Progress Notes Patient:?Too Young Provider:?Chico Bojorquez MD :1935???Age:89 Y???Sex:Male Ryan e:10/27/2024 Address:[address] [place] [address], [facility] Subjective: * Chief Complaints: * ???PH/TCMPatient was dicharg ed from rehab this past weekend. Family wanted to keep this appointment Daughter has recent labs * HPI: ???Symptom(s):? patient is a 89 yo male here for transistional care management visit following recent discharge from Rehab, discharge summary has been reviewed and medications reconcilled, had a study at the correction/ requests do not resussitate. * ROS:?General/Constitutional:?Patient denies?chills , fatigue , fever , headache.?ENT:?Patient denies?decreased sense of smell , any loss of taste , sore throat.?Respiratory:?Patient denies?pain with inspiration , shortness of breath at rest.?Gastrointestinal:?Patient denies?abdominal pain.?Musculoskeletal:?Patient denies?muscle aches.?Peripheral Vascular:?Patient denies?red and blue toes.? * Medical History:? * Surgical History:? * Hospitalization/Major Diagno stic Procedure:? * Medications:?TakingBetametha sone Dipropionate 0.05 % Cream 1 application Externally Once a dayTrelegy Ellipta 200-62.5-25 MCG/ACT Aerosol Powder Breath Activated 1 puff Inhalation Once a dayIpratropium [place] 0.06 % Solution 2 sprays in each nostril Nasally Three times a dayVitamin B50 Complex Tablet Extended Release Orally once a dayCitalopram Hydrobromide 20 MG Tablet TAKE 1 TABLET BY MOUTH EVERY DAY Furosemide 20 MG Tablet 1 tablet Orally Once a dayOmeprazole 20 MG Capsule Delayed Release TAKE 1 CAPSULE BY MOUTH EVERY DAY Orally Once a dayFurosemide 20 MG Tablet TAKE 1 TABLET BY MOUTH EVERY DAY FOR 30 DAYS Aspirin 81 MG Tablet Chewable 1 tablet Orally Once a dayFerrous Sulfate 325 (65 Fe) MG Tablet TAKE 1 TABLET BY MOUTH EVERY DAY FOR 30 DAYS Fluticasone Furoate 27.5 MCG/SPRAY Suspension 1 puff in each nostril Nasally Once a dayTaking Betamethasone Dipropionate 0.05 % Cream 1 application Externally Once a dayTaking Trelegy Ellipta 200-62.5-25 MCG/ACT Aerosol Powder Breath Activated 1 puff Inhalation Once a dayTaking Ipratropium [place] 0.06 % Solution 2 sprays in each nostril Nasally Three times a dayTaking Vitamin B50 Complex Tablet Extended Release Orally once a dayTaking Citalopram Hydrobromide 20 MG Tablet TAKE 1 TABLET BY MOUTH EVERY DAY Taking Furosemide 20 MG Tablet 1 tablet Orally Once a dayTaking Omeprazole 20 MG Capsule Delayed Release TAKE 1 CAPSULE BY MOUTH EVERY DAY Orally Once a dayTaking Furosemide 20 MG Tablet TAKE 1 TABLET BY MOUTH EVERY DAY FOR 30 DAYS Taking Aspirin 81 MG Tablet Chewable 1 tablet Orally Once a dayTaking Ferrous Sulfate 325 (65 Fe) MG Tablet TAKE 1 TABLET BY MOUTH EVERY DAY FOR 30 DAYS Taking Fluticasone Furoate 27.5 MCG/SPRAY Suspension 1 puff in each nostril Nasally Once a dayNot-Taking/PRNrOPINIRole HCl 2 MG Tablet TAKE 1 TABLET BY MOUTH 1 TO 3 HOURS BEFORE BEDTIME ORALLY ONCE A DAY 30 DAYS 90 Not-Taking/PRN rOPINIRole HCl 2 MG Tablet TAKE 1 TABLET BY MOUTH 1 TO 3 HOURS BEFORE BEDTIME ORALLY ONCE A DAY 30 DAYS 90 DiscontinuedamLODIPine Besylate 5 MG Tablet 1 tablet Orally Once a dayTamsulosin HCl 0.4 MG Capsule 1 capsule Orally Once a dayXarelto 2.5 MG Tablet TAKE 1 TABLET BY MOUTH TWICE A DAY WITH FOOD FOR 30 DAYS traMADol HCl 50 MG Tablet TAKE 1/2 TABLET BY MOUTH TWICE DAILY NEEDED FOR 7 DAYS Tamsulosin HCl 0.4 MG Capsule 1 capsule Orally Once a dayDiscontinued amLODIPine Besylate 5 MG Tablet 1 tablet Orally Once a dayDiscontinued Tamsulosin HCl 0.4 MG Capsule 1 capsule Orally Once a dayDiscontinued Xarelto 2.5 MG Tablet TAKE 1 TABLET BY MOUTH TWICE A DAY WITH FOOD FOR 30 DAYS Discontinued traMADol HCl 50 MG Tablet TAKE 1/2 TABLET BY MOUTH TWICE DAILY NEEDED FOR 7 DAYS Discontinued Tamsulosin HCl 0.4 MG Capsule 1 capsule Orally Once a dayUnknownMupirocin Calcium 2 % Cream as directed Externally Atorvastatin Calcium 10 MG Tablet TAKE 1 TABLET BY MOUTH EVERY DAY Orally Once a daySildenafil Citrate 100 MG Tablet 1/2 or 1tablet as needed Orally Once a dayLisinopril 5 MG Tablet TAKE 1 TABLET BY MOUTH EVERY DAY Fluticasone Propionate 50 MCG/ACT Suspension SPRAY 1 SPRAY INTO EACH NOSTRIL ONCE DAILY Medication List reviewed and reconciled with the patientUnknown Mupirocin Calcium 2 % Cream as directed Externally Unknown Atorvastatin Calcium 10 MG Tablet TAKE 1 TABLET BY MOUTH EVERY DAY Orally Once a dayUnknown Sildenafil Citrate 100 MG Tablet 1/2 or 1tablet as needed Orally Once a dayUnknown Lisinopril 5 MG Tablet TAKE 1 TABLET BY MOUTH EVERY DAY Unknown Fluticasone Propionate 50 MCG/ACT Suspension SPRAY 1 SPRAY INTO EACH NOSTRIL ONCE DAILY Medication List reviewed and reconciled with the patient * Allergies:?N.K.D.A.yes[Aller gies Verified] Objective: * Vitals:?Ht: 68, Wt:133, BMI: 20.22, BP:118/52 weight is up 3 pounds since 09-21-24. * Examination: ???General Examination: ?GENERAL APPEARANCE:?alert, well hydrated, in no distress.?HEAD:?normocephalic.?SKIN:?with excoriqations.?HEART:?no murmurs, rubs, gallops , regular rate and rhythm.?LUNGS:?no wheezes, rales, rhonchi , good air movement , clear to auscultation bilaterally.? Assessment: * Assessment: 1.?Essential hypertension - I10?2.?Chronic systolic congestive heart failure - I50.22?3.?Iron deficiency anemia, unspecified iron deficiency anemia type - D50.9? Plan: * Treatment: 2.?Chronic systolic congesti ve heart failure? Continue Furosemide Tablet, 20 MG, TAKE 1 TABLET BY MOUTH EVERY DAY FOR 30 DAYS.?? Notes: stable with no sign of chf, will continue current regiment?? 3.?Iron deficiency anemia, u nspecified iron deficiency anemia type? Continue Ferrous Sulfate Tablet, 325 (65 Fe) MG, TAKE 1 TABLET BY MOUTH EVERY DAY FOR 30 DAYS.?? Notes: is unable to get colonoscopy, will coontinue current regiment?? 4.?Others? Notes: Total time spent on the date of the encounter is 35 minutes including both face to face time spent and time spent reviewing documentation, and counseling the patient.?? * Procedure Codes:? * Follow Up:?2 Months * * Sign off status: Completed true * Provider:?Chico Bojorquez MD Date:?0 10/27/2024 Generated for Nikolay tejeda/Keith/eTransmitting on:?12/29/2024 06:21 PM EDT History and Physical Notes * HPI (History of Present Illness) Category Sub-Category Detail Notes Category Not es Symptom(s) patient is a 89 yo male here for transistional care management visit following recent discharge from Rehab, discharge summary has been reviewed and medications reconcilled, had a study at the correction/ requests do not resussitate Examination Category Sub-Category Detail Notes Category Not es General Examination GENERAL APPEARANCE: alert, w ell hydrated, in no distress HEAD: normocephalic HEART: no murmurs, rubs, ga llops , regular rate and rhythm LUNGS: no wheezes, rales, r honchi , good air movement , clear to auscultation bilaterally SKIN: with excoriqations
--- OUTSIDE RECORDS SUMMARY | 2024-12-29 18:22 | XMS_ITS | Encounter Summary ---
Author Organization [facility] Address [address] [place] [address] Care Team Providers Care Hematology Oncology Consultant Name Role Phone Chico Bojorquez MD Primary Care Provider [phone] Encounter Details Date Type Department Care Team (Late st Contact Info) Description 04/15/2023 Scanned Document [facility] PRIMARY CARE SCAN Primary Care, Scan Social [...] on filedocumented in this encounter Care Teams Hematology Oncology Consultant Relationship Specialty Start Date End Date Chico Bojorquez MD [address] [place] [address] [place] [address] PCP - General Internal Medicine 12/04/17 documented as of this encounter
--- OUTSIDE RECORDS SUMMARY | 2024-12-29 18:22 | XMS_ITS | Encounter Summary ---
Author Organization [facility] Address [address] [place] [address] Care Team Providers Care Mortgage Loan Closer Name Role Phone Chico Bojorquez MD Primary Care Provider Encounter Details Date Type Department Care Team (Late st Contact Info) Description 10/02/2024 Lab Requisition [facility] - Main Lab [address] [facility] [place] [address] Blessing Mariee MD [address] [place], [place] [phone] Heart failure, unspecified (CMS/HCC); Chronic obstructive pulmonary [...] mmol/L LAB CHEMISTRY METHOD 10/02/2024 11:18 AM [facility] Potassium 4.6 3.5 - 5.5 mmol/L LAB CHEMISTRY METHOD 10/02/2024 11:18 AM [facility] Chloride 106 96 - 110 mmol/L LAB CHEMISTRY METHOD 10/02/2024 11:18 AM [facility] CO2 26 21 - 32 mmol/L LAB CHEMISTRY METHOD 10/02/2024 11:18 AM [facility] Anion Gap 8 3 - 11 LAB CHEMISTRY METHOD 10/02/2024 11:18 AM [facility] Glucose 69(L) 70 - 100 mg/dL LAB CHEMISTRY METHOD 10/02/2024 11:18 AM [facility] BUN 27(H) 5 - 25 mg/dL LAB CHEMISTRY METHOD 10/02/2024 11:18 AM [facility] Creatinine 1.13 0.70 - 1.30 mg/dL LAB CHEMISTRY METHOD 10/02/2024 11:18 AM [facility] eGFR 63 >=60 mL/min/1. 73m2 LAB CHEMISTRY METHOD 10/02/2024 11:18 AM [facility] Comment:Calculation based on the??Chronic Kidney Disease Epidemiology Collaboration (CKD-EPI) equation refit??without adjustment for race. BUN/Creatinine Ratio 23.9 LAB CHEMISTRY METHOD 10/02/2024 11:18 AM [facility] Calcium 8.8 8.5 - 10.5 mg/dL LAB CHEMISTRY METHOD 10/02/2024 11:18 AM [facility] Blood Venous blood specimen / Unknown Venipuncture / Unknown 10/02/2024 6:53 AM EST 10/02/2024 9:14 AM EST us Blessing Mariee MD LAB BLOOD ORDERABLES Final Resul t [facility] [address] [place] [address], * (ABNORMAL) Complete blood count (10/02/2024 6:53 AM EST) [facility] WBC 14.1(H) 4.8 - 10.8 K/mcL LAB HEMETOLOGY METHOD 10/02/2024 10:41 AM [facility] RBC 3.90(L) 4.50 - 5.50 M/mcL LAB HEMETOLOGY METHOD 10/02/2024 10:41 AM [facility] Hemoglobin 7.1(L) 13.5 - 17.5 g/dL LAB HEMETOLOGY METHOD 10/02/2024 10:41 AM [facility] Hematocrit 25.4(L) 42.0 - 54.0 % LAB HEMETOLOGY METHOD 10/02/2024 10:41 AM [facility] MCV 65.5(L) 79.0 - 98.0 FL LAB HEMETOLOGY METHOD 10/02/2024 10:41 AM [facility] MCH 18.3(L) 27.0 - 32.0 pcg LAB HEMETOLOGY METHOD 10/02/2024 10:41 AM [facility] MCHC 28.0(L) 32.0 - 37.0 g/dL LAB HEMETOLOGY METHOD 10/02/2024 10:41 AM [facility] RDW 22.7(H) 11.0 - 15.0 % LAB HEMETOLOGY METHOD 10/02/2024 10:41 AM [facility] Platelets 299 130 - 400 K/mcL LAB HEMETOLOGY METHOD 10/02/2024 10:41 AM [facility] MPV 10.4 7.0 - 11.0 FL LAB HEMETOLOGY METHOD 10/02/2024 10:41 AM [facility] NRBC 0.0 <1.0 % LAB HEMETOLOGY METHOD 10/02/2024 10:41 AM EST [facility] NRBC Absolute 0.00 <0.10 K/[facility] LAB HEMETOLOGY METHOD 10/02/2024 10:41 AM EST [facility] Blood Venous blood specimen / Unknown Venipuncture / Unknown 10/02/2024 6:53 AM EST 10/02/2024 9:14 AM EST us Blessing Mariee MD LAB BLOOD ORDERABLES Final Resul t [facility] [address] [place] [address], documented in this encounter Visit Diagnoses Diagnosis Heart failure, unspecified (CMS/HCC) Heart failure, unspecified Chronic obstructive pulmonary disease, unspecified (CMS/HCC) documented in this encounter Care Teams Mortgage Loan Closer Relationship Specialty Start Date End Date Chico Bojorquez MD PCP - General Internal Medicine 02/18/18 documented as of this encounter
--- OUTSIDE RECORDS SUMMARY | 2024-12-29 18:22 | XMS_ITS | Encounter Summary ---
Author Organization [facility] Address [address] [place] [address] Care Team Providers Care Inspector Soldering Name Role Phone Chico Bojorquez MD Primary Care Provider [phone] Encounter Details Date Type Department Care Team (Late st Contact Info) Description 08/19/2024 Scanned Document [facility] Pulmonary [place] [address] [place] [phone] Lorie Mathew MD [address] [place] [address] [address] [place] [address] Social History Tobacco Use Types Packs/Day Years [...] on filedocumented in this encounter Care Teams Inspector Soldering Relationship Specialty Start Date End Date Chico Bojorquez MD [address] [place] [address] [place] [id number] PCP - General Internal Medicine 12/04/17 documented as of this encounter
--- OUTSIDE RECORDS SUMMARY | 2024-12-29 18:22 | XMS_ITS | Encounter Summary ---
Author Organization [facility] Address [address] [place] [address] Care Team Providers Care Casing Tier Name Role Phone Chico Bojorquez MD Primary Care Provider [phone] Encounter Details Date Type Department Care Team (Late st Contact Info) Description 12/08/2024 4:20 PM EST Ancillary Procedure [facility] Radiology [address] [place] [address] Provider, File Room Social History Tobacco Use [...] ONLY CT Routine 12/08/2024 4:20 PM EST documented in this encounter Results * TRICIA Archive for reference only CT (12/08/2024 4:20 PM EST) Narrative ROLANDO - 12/08/2024 4:17 PM EST This order has been auto-finalized and does not contain a result. File Room Provider IMG DIGITIZE FILMS ROLANDO [phone] documented in this encounter Visit Diagnoses Not on filedocumented in this encounter Care Teams Casing Tier Relationship Specialty Start Date End Date Chico Bojorquez MD [address] [place] [address] Dr Rashid, [place] [address] PCP - General Internal Medicine 12/04/17 documented as of this encounter
== END 2024-12-29 15:06 | disposition home or self-care (01) ==
LOC: HO.LNP 15:05
PROVIDERS: Visit Provider Internal Medicine
DX: I50.22 Chronic systolic (congestive) heart failure (principal)
CPT/HCPCS: 83540; 85025

== ENCOUNTER 2025-01-05 10:29 | Outpatient (REF) | payer MEDICARE, SELFPAY ==
[2025-01-05 11:30] LABS: Basophils Absolute Auto 0.1 X10*3/uL (0.0-0.2); Eosinophils Percent Auto 14.7 % (0-4); Hematocrit 36.9 % (42.0-52.0); Hemoglobin 11.6 g/dl (14.0-18.0); Imm Gran Abs Auto 0.05 X10*3/uL (0.00-0.03); Imm Gran Pct Auto 0.4 % (0.0-0.4); Lymphocytes Absolute Auto 1.4 X10*3/uL (1.2-4.9); Lymphocytes Percent Auto 10.1 % (20-40); MANUAL DIFF FLAG SCAN; Mean Corpuscular HGB Conc 31.4 g/dl (31.0-36.0); Mean Corpuscular Hemoglobin 26.8 pg (27.0-33.0); Mean Corpuscular Volume 85.2 fL (80.0-98.0); Monocytes Absolute Auto 0.9 X10*3/uL (0.1-1.2); Monocytes Percent Auto 6.8 % (2-11); Neutrophils Absolute Auto 9.1 x10*3/uL (2.0-8.3); PLT CLUMP 1; Red Blood Count 4.33 X10*6/uL (4.60-5.80); Red Cell Distribution Width 19.5 % (11.0-16.0); SCAN SMEAR FLAG 1
[2025-01-05 11:41] LABS: White Blood Count 13.6 X10*3/uL (4.8-10.8)
[2025-01-05 11:42] LABS: SLIDE REVIEW VERIFIED
== END 2025-01-05 10:30 | disposition home or self-care (01) ==
LOC: HO.LNP 10:29
PROVIDERS: Visit Provider Internal Medicine
DX: D50.9 Iron deficiency anemia, unspecified (principal)
CPT/HCPCS: 85025

== ENCOUNTER 2025-03-23 13:01 | Outpatient (REF) | payer MEDICARE, SELFPAY ==
--- NOTE | ~2025-03-23 | CT_ITS ---
EXAMINATION: CT CHEST WITHOUT CONTRAST CLINICAL INFORMATION: Pulmonary nodules COMPARISON: September 28, 2024 TECHNIQUE: Multidetector volumetric CT imaging of the chest was done. Axial MIP volume rendering provided. Sagittal and coronal reformatted images were obtained. This CT examination was performed using dose optimization techniques as appropriate, variously including the following: *Automated exposure control *Adjustment of mA and/or kV according to patient size (this includes techniques or standardized protocols for targeted exams where dose is matched to indication/reason for exam; i.e. extremities or head) *Use of iterative reconstruction technique DLP: 407 mGY*cm FINDINGS: LUNGS: The lungs are expanded. There are multifocal centrilobular lucencies. There is honeycombing in the lung apex and peripheral lung bases. There is a nodular cluster in the posterior lower third region of the left lower lobe contacting pleura. Nodular cluster (for example series 7 image 91/150) measures approximately 16 x 11 x 10 mm (CC by AP by transverse). Previous study, this area was mostly groundglass density. It appears more solid on the current examination with less groundglass density. It is adjacent to an area where there was previous tenting of the pleura which is less pronounced today. There is a 3 mm lung nodule in the right middle lobe (84/150) MEDIASTINUM: There are a few small subcentimeter lymph nodes Heart size is within normal limits. There is moderate atherosclerotic calcifications in the aorta and great vessels. CORONARY ARTERY CALCIFICATION: Present PLEURA: There is no pleural effusion or pleural thickening. AXILLA: No lymphadenopathy. UPPER ABDOMEN: There are calcifications in the upper kidneys and could represent vascular calcifications and/or renal calculi. Largest is on the left measuring 2 x 7 mm. OSSEOUS STRUCTURES: There are bridging syndesmophytes in the mid and upper thoracic spine and osseous bridging of the spinous process tips. There are nonbridging anterior osteophytes are large and protruding in the lower thoracic spine with disc space narrowing and vacuum phenomena. There are changes from shoulder replacement on the left that is partially imaged. There is advanced degenerative change in the right shoulder joint with sclerosis, osteophytes, and subchondral cystic change. CT/CT chest wo IV con IMPRESSION: Indeterminate suspicious nodular cluster in the posterior left lower lobe. On the prior exam, there was a groundglass density in this region. The area now appears more nodular and solid, consider consultation for biopsy or PET/CT imaging. Moderate centrilobular emphysema. 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 Fleischner guidelines were followed. Electronically signed by: Alberto Cazares MD 03/23/2025 05:24 PM EDT
== END 2025-03-23 13:02 | disposition home or self-care (01) ==
LOC: HO.CT 13:01
PROVIDERS: PCP Internal Medicine; Visit Provider Internal Medicine
DX: R91.8 Other nonspecific abnormal finding of lung field (principal)
CPT/HCPCS: 71250

== ENCOUNTER → 2025-03-23 13:03 | Outpatient (BNV) | payer MEDICARE, SELFPAY | PROVIDERS: PCP Internal Medicine; Visit Provider Radiology Diagnostic Radiology | DX: R91.8 Other nonspecific abnormal finding of lung field (principal); M19.011 Primary osteoarthritis, right shoulder; J43.2 Centrilobular emphysema | CPT/HCPCS: 71250 ==

== ENCOUNTER 2025-09-08 13:00 | Emergency (ER) | payer MEDICARE, SELFPAY ==
--- OUTSIDE RECORDS SUMMARY | 2024-10-29 06:25 | XMS_ITS ---
Author Organization Chico Bojorquez MD Address [address] [place] [phone] Care Team Providers Care Director Retirement Name Role Phone BarbaraChico plascencia Primary Care Provider REASON FOR VISIT ? to take tylenol Encounters Encounter Location Date Provider Diagnosis Chico Bojorquez MD [address] [facility] [address] [place] [phone] 10/29/2024 Chico Bojorquez Plan Of Treatment Next Appt Details Provider Name:Chico moon, 01/11/2026 01:30:00 PM, [address] [place] [address] Drive, [address] [place] [address], [phone], Progress Notes * Too YOUNGDOB: [birth year] (89 yo M)Acc No.[id number]:10/29/2024 Patient: Too Valiente :1935 A ge:89 Y S ex:Male Address:[address] [place] [address] * true * Date: Generated for Printi nikhil/Faxing/eTransmitting on: 1 11/09/2024 03:12 AM EST
--- OUTSIDE RECORDS SUMMARY | 2024-12-29 08:30 | XMS_ITS ---
Author Organization Chico Bojorquez MD Address [address] [place] [phone] Care Team Providers Care Nursery Technician Name Role Phone Chico Bojorquez Primary Care Provider [phone] Allergies No Known Allergies Results Component Value Reference Range Notes Complete Blood Count Auto Di ff Reviewed date:01/05/2025 10:43:04 AM Interpretation:01-05-2025 Performing Lab:[facility], [address] [place] [phone] Notes/Report: White Blood Count 12.3 4.8-10.8 X10*3/uL Red Blood Count 4.33 4.60-5.80 X10*6/uL Hemoglobin 11.6 14.0-18.0 g/dl Hematocrit 37.5 42.0-52.0 % Mean Corpuscular Volume 86.6 80.0-98.0 fL Mean Corpuscular Hemoglobin 26.8 27.0-33.0 pg Mean Corpuscular HGB Conc 30.9 31.0-36.0 g/dl Red Cell Distribution Width 21.1 11.0-16.0 % Platelet Count TNP 160-400 X10*3/uL Neutrophils Percent Auto 68.9 45-73 % Imm Gran Pct Auto 0.4 0.0-0.4 % Lymphocytes Percent Auto 8.5 20-40 % Monocytes Percent Auto 8.3 2-11 % Eosinophils Percent Auto 12.8 0-4 % Basophils Percent Auto 1.1 0-2 % NRBC Pct Auto 0.0 0.0-0.2 /100WBC Neutrophils Absolute Auto 8.5 2.0-8.3 x10*3/u L Imm Gran Abs Auto 0.05 0.00-0.03 X10*3/uL Lymphocytes Absolute Auto 1.0 1.2-4.9 X10*3/u L Monocytes Absolute Auto 1.0 0.1-1.2 X10*3/uL Eosinophils Absolute Auto 1.6 0.0-0.4 X10*3/u L Basophils Absolute Auto 0.1 0.0-0.2 X10*3/uL NRBC Abs Auto 0.000 0.0-0.012 X10*3/uL CORRE CTED REPORT IRON PROFILE Reviewed date:12/30/2024 07:04:37 PM Interpretation: Performing Lab:[facility], [address] [place] [phone] Notes/Report: Iron 32 45-160 mcg/dL Total Iron Binding Capacity 239 228-428 mcg/d L Percent Iron Saturation 13 15-50 % Unsaturated Iron Binding 207 REASON FOR VISIT 2 month follow up appt, Accompanied by daughter Medications Medication SIG (Take, Route, Frequency, Duration) Notes Start Date End Date Status Atorvastatin Calcium 10 MG TAKE 1 TABLET BY MOUTH EVERY DAY Orally Once a day for 90 days Unknown Fluticasone Furoate 27.5 MCG/SPRAY 1 puff in each nostril Nasally Once a day for 30 11/24/2013 Active Mupirocin Calcium 2 % as directed Externally Unknown rOPINIRole HCl 2 MG TAKE 1 TABLET BY EVANGELINA TH 1 TO 3 HOURS BEFORE BEDTIME ORALLY ONCE A DAY 30 DAYS 90 for 90 Not-Taking Furosemide 20 MG TAKE 1 TABLET BY EVANGELINA TH EVERY DAY FOR 30 DAYS Active Citalopram Hydrobromide 20 MG TAKE 1 TABLET BY MOUTH EVERY DAY for 90 Active Vitamin B50 Complex Orally once a day Active Ipratropium [place] 0.06 % 2 sprays in each nostril Nasally Three times a day for 4 day(s) Active Aspirin 81 MG 1 tablet Orally Once a day for 30 day(s) Active Omeprazole 20 MG TAKE 1 CAPSULE BY [facility] EVERY DAY Orally Once a day for 90 days Active Furosemide 20 MG 1 tablet Orally Once a day 08/11/2024 Active Trelegy Ellipta 200-62.5-25 MCG/ACT 1 puff Inhalation Once a day Active Betamethasone Dipropionate 0.05 % 1 application Externally Once a day Active Vitamin D 25 MCG (1000 UT) 1 tablet Orally Once a day Active Ferrous Sulfate 325 (65 Fe) MG TAKE 1 TABLET BY MOUTH EVERY DAY FOR 30 DAYS Active Sildenafil Citrate 100 MG 1/2 or 1tablet as needed Orally Once a day 04/14/2021 Unknown Lisinopril 5 MG TAKE 1 TABLET BY [facility] EVERY DAY for 90 Unknown Fluticasone Propionate 50 MCG/ACT SPRAY 1 SPRAY INTO EACH NOSTRIL ONCE DAILY for 60 Unknown Vital Signs Blood pressure systolic 118 mm Hg 12/30/19 25 Blood pressure diastolic 50 mm Hg 025 Height 68 in 12/29/2024 Weight 136 lbs 12/29/2024 BMI 20.68 kg/m2 12/29/2024 weight is up 3 pounds since 10-27-24 Encounters Encounter Location Date Provider Diagnosis Chico Bojorquez MD [address] [place] [address] [place] [phone] 12/29/2024 Chico Bojorquez Essential hypertension I10 ; Chronic systolic congestive heart failure I50.22 and Iron deficiency anemia, unspecified iron deficiency anemia type D50.9 Assessments Encounter Date Diagnosis (ICD Code) Assessment Notes Treatment Notes Treatment Clinical Notes Section Notes 12/29/2024 Essential hypertension (ICD-10 - I10) well controlled, will continue to monitor 12/29/2024 Chronic systolic congestive heart failure (ICD-10 - I50.22) stable on treatment 12/29/2024 Iron deficiency anemia, unspecified iron deficiency anemia type (ICD-10 - D50.9) the family has been to 2 doctors to get clearance for a colonoscopy and both of them asked why they would put him through all that. also it would seem almost impossible to prep him and the anasthsia may make him mentally worse. they have decided against the colonoscopy Plan Of Treatment Medication Medication Name Sig Start Date Stop Date Notes Furosemide 20 MG 1 tablet Orally Once a day 08/11/2024 Ferrous Sulfate 325 (65 Fe) MG TAKE 1 TA BLET BY MOUTH EVERY DAY FOR 30 DAYS Treatment Notes Assessment Notes Essential hypertension well controlled, will continue to monitor Chronic systolic congestive heart failur e stable on treatment Iron deficiency anemia, unsp ecified iron deficiency anemia type the family has been to 2 doctors to get clearance for a colonoscopy and both of them asked why they would put him through all that. also it would seem almost impossible to prep him and the anasthsia may make him mentally worse. they have decided against the colonoscopy Next Appt Details Follow Up: 3 Months, Reason: Provider Name:Chico moon, 01/11/2026 01:30:00 PM, [address] [place] [address], [address], [phone], Progress Notes * Too YOUNGDOB: [birth year] (89 yo M)Acc No.[id number]:12/29/2024 Progress Notes Patient: Too BREWER Provider: Myriam Bojorquez MD :1935 A ge:89 Y S ex:Male Date:12/29/2024 Address:[address] [place], [place] [phone] Subjective: * Chief Complaints: * 2 month follow up apptAccompanied by daughter * HPI: S ymptom(s): patient is 89 yo male here for 2 month follow up visit, has been going around. * ROS: G eneral/Constitutional: Denies C hills. D enies F atigue. D enies F ever. D enies H eadache. E NT: Patient denies d ecreased sense of smell, any loss of taste, sore throat. D enies S ore throat. R espiratory: Denies C ough. D enies S hortness of breath at rest. D enies S hortness of breath with exertion. G astrointestinal: Denies D iarrhea. D enies N ausea. M usculoskeletal: Patient denies m uscle aches. P eripheral Vascular: Patient denies r ed and blue toes. * Medical History: * Surgical History: * Hospitalization/Major Diagno stic Procedure: * Medications: T akingVitamin D 25 MCG (1000 UT) Tablet 1 tablet Orally Once a day Betamethasone Dipropionate 0.05 % Cream 1 application Externally Once a day Trelegy Ellipta 200-62.5-25 MCG/ACT Aerosol Powder Breath Activated 1 puff Inhalation Once a day Ipratropium [place] 0.06 % Solution 2 sprays in each nostril Nasally Three times a day Vitamin B50 Complex Tablet Extended Release Orally once a day Citalopram Hydrobromide 20 MG Tablet TAKE 1 TABLET BY MOUTH EVERY DAY Furosemide 20 MG Tablet 1 tablet Orally Once a day Omeprazole 20 MG Capsule Delayed Release TAKE 1 CAPSULE BY MOUTH EVERY DAY Orally Once a day Aspirin 81 MG Tablet Chewable 1 tablet Orally Once a day Fluticasone Furoate 27.5 MCG/SPRAY Suspension 1 puff in each nostril Nasally Once a day Furosemide 20 MG Tablet TAKE 1 TABLET BY MOUTH EVERY DAY FOR 30 DAYS Ferrous Sulfate 325 (65 Fe) MG Tablet TAKE 1 TABLET BY MOUTH EVERY DAY FOR 30 DAYS Taking Vitamin D 25 MCG (1000 UT) Tablet 1 tablet Orally Once a day Taking Betamethasone Dipropionate 0.05 % Cream 1 application Externally Once a day Taking Trelegy Ellipta 200-62.5-25 MCG/ACT Aerosol Powder Breath Activated 1 puff Inhalation Once a day Taking Ipratropium [place] 0.06 % Solution 2 sprays in each nostril Nasally Three times a day Taking Vitamin B50 Complex Tablet Extended Release Orally once a day Taking Citalopram Hydrobromide 20 MG Tablet TAKE 1 TABLET BY MOUTH EVERY DAY Taking Furosemide 20 MG Tablet 1 tablet Orally Once a day Taking Omeprazole 20 MG Capsule Delayed Release TAKE 1 CAPSULE BY MOUTH EVERY DAY Orally Once a day Taking Aspirin 81 MG Tablet Chewable 1 tablet Orally Once a day Taking Fluticasone Furoate 27.5 MCG/SPRAY Suspension 1 puff in each nostril Nasally Once a day Taking Furosemide 20 MG Tablet TAKE 1 TABLET BY MOUTH EVERY DAY FOR 30 DAYS Taking Ferrous Sulfate 325 (65 Fe) MG Tablet TAKE 1 TABLET BY MOUTH EVERY DAY FOR 30 DAYS Not-Taking/PRNrOPINIRole HCl 2 MG Tablet TAKE 1 TABLET BY MOUTH 1 TO 3 HOURS BEFORE BEDTIME ORALLY ONCE A DAY 30 DAYS 90 Not-Taking/PRN rOPINIRole HCl 2 MG Tablet TAKE 1 TABLET BY MOUTH 1 TO 3 HOURS BEFORE BEDTIME ORALLY ONCE A DAY 30 DAYS 90 UnknownMupirocin Calcium 2 % Cream as directed Externally Atorvastatin Calcium 10 MG Tablet TAKE 1 TABLET BY MOUTH EVERY DAY Orally Once a day Sildenafil Citrate 100 MG Tablet 1/2 or 1tablet as needed Orally Once a day Lisinopril 5 MG Tablet TAKE 1 TABLET BY MOUTH EVERY DAY Fluticasone Propionate 50 MCG/ACT Suspension SPRAY 1 SPRAY INTO EACH NOSTRIL ONCE DAILY Medication List reviewed and reconciled with the patientUnknown Mupirocin Calcium 2 % Cream as directed Externally Unknown Atorvastatin Calcium 10 MG Tablet TAKE 1 TABLET BY MOUTH EVERY DAY Orally Once a day Unknown Sildenafil Citrate 100 MG Tablet 1/2 or 1tablet as needed Orally Once a day Unknown Lisinopril 5 MG Tablet TAKE 1 TABLET BY MOUTH EVERY DAY Unknown Fluticasone Propionate 50 MCG/ACT Suspension SPRAY 1 SPRAY INTO EACH NOSTRIL ONCE DAILY Medication List reviewed and reconciled with the patient * Allergies: N .K.D.A.yes[Allergies Verified] Objective: * Vitals: H t: 68, Wt: 136, BMI:20.68, BP:118/50, Wt-k.69. weight is up 3 pounds since 10-27-24. * Examination: G eneral Examination: GENERAL APPEARANCE: p leasant, well nourished, well developed, in no acute distress. HEAD: n ormocephalic. SKIN: g ood turgor. HEART: r egular rate and rhythm, no murmurs, rubs, gallops.? LUNGS: n o wheezes, rales, rhonchi, good air movement, clear to auscultation bilaterally. EXTREMITIES: n o edema. Assessment: * Assessment: 1. E ssential hypertension - I10 (Primary) 2 . C hronic systolic congestive heart failure - I50.22 3 . I dayday deficiency anemia, unspecified iron deficiency anemia type - D50.9 Plan: * Treatment: 2. C hronic systolic congestive heart failure Continue Furosemide Tablet, 20 MG, 1 tablet, Orally, Once a day. L AB: Complete Blood Count Auto Diff (Collection Date & Time - 12/29/2024 01:30 PM) L AB: IRON PROFILE (Collection Date & Time - 12/29/2024 01:30 PM) Notes: stable on treatment 3. I dayday deficiency anemia, unspecified iron deficiency anemia type Continue Ferrous Sulfate Tablet, 325 (65 Fe) MG, TAKE 1 TABLET BY MOUTH EVERY DAY FOR 30 DAYS. Notes: the family has been to 2 doctors to get clearance for a colonoscopy and both of them asked why they would put him through all that. also it would seem almost impossible to prep him and the anasthsia may make him mentally worse. they have decided against the colonoscopy * Procedure Codes: 3 6415 VENIPUNCT, ROUTINE*[id number] Complex e/m visit add on * Follow Up: 3 Months * * Sign off status: Completed true * Provider: Myriam Bojorquez MD Date: 0 12/29/2024 Generated for Nikolay tejeda/Keith/eTransmitting on: 1 11/09/2024 03:12 AM EST History and Physical Notes * HPI (History of Present Illness) Category Sub-Category Detail Notes Category Not es Symptom(s) patient is 89 y o male here for 2 month follow up visit, has been going around Examination Category Sub-Category Detail Notes Category Not es General Examination GENERAL APPEARANCE: pleasant , well nourished, well developed, in no acute distress HEAD: normocephalic HEART: regular rate and rhy thm, no murmurs, rubs, gallops LUNGS: no wheezes, rales, r honchi, good air movement, clear to auscultation bilaterally SKIN: good turgor EXTREMITIES: no edema
--- OUTSIDE RECORDS SUMMARY | 2024-12-31 04:09 | XMS_ITS ---
Author Organization Chico Bojorquez MD Address [address] [place] [phone] Care Team Providers Care Cruise Coordinator Name Role Phone [place] Primary Care Provider [phone] REASON FOR VISIT repeat CBC Encounters Encounter Location Date Provider Diagnosis Chico Bojorquez MD [address] [facility] [address] [place] [phone] 12/31/2024 Chico Bojorquez Plan Of Treatment Next Appt Details Provider Name:Chico Clark ier, 01/11/2026 01:30:00 PM, [address], [address] [place] [address], [phone], Progress Notes * Too YOUNGDOB: 6 (89 yo M)Acc No.[id number]:12/31/2024 Patient: Too BREWER :1935 A ge:89 Y S ex:Male Address:[address] [place] [address] * true * Date: Generated for Printi ng/Faxing/eTransmitting on: 1 11/09/2024 03:13 AM EST
--- OUTSIDE RECORDS SUMMARY | 2025-01-05 02:45 | XMS_ITS ---
Author Organization Chico Bojorquez MD Address [address] [place] [phone] Care Team Providers Care Licensed Midwife Name Role Phone Reno Chico Primary Care Provider Results Component Value Reference Range Notes Complete Blood Count Auto Di ff Reviewed date:01/05/2025 12:02:23 PM Interpretation: Performing Lab:[facility], [address] [place] [phone] Notes/Report: White Blood Count 13.6 4.8-10.8 X10*3/uL Red Blood Count 4.33 4.60-5.80 X10*6/uL Hemoglobin 11.6 14.0-18.0 g/dl Hematocrit 36.9 42.0-52.0 % Mean Corpuscular Volume 85.2 80.0-98.0 fL Mean Corpuscular Hemoglobin 26.8 27.0-33.0 pg Mean Corpuscular HGB Conc 31.4 31.0-36.0 g/dl Red Cell Distribution Width 19.5 11.0-16.0 % Platelet Count TNP 160-400 X10*3/uL Platelet clumps noted. Platelet count will not be accurate. Platelet clumps noted. Platelet count will not be accurate. Recollecting the platelet count in a blue top tube may Recollecting the platelet count in a blue top tube may eliminate platelet clumps. Order platelet count blue top eliminate platelet clumps. Order platelet count blue top tube. A lavender top tube must be drawn if CBC is required. tube. A lavender top tube must be drawn if CBC is required. Neutrophils Percent Auto 67.0 45-73 % Imm Gran Pct Auto 0.4 0.0-0.4 % Lymphocytes Percent Auto 10.1 20-40 % Monocytes Percent Auto 6.8 2-11 % Eosinophils Percent Auto 14.7 0-4 % Basophils Percent Auto 1.0 0-2 % NRBC Pct Auto 0.0 0.0-0.2 /100WBC Neutrophils Absolute Auto 9.1 2.0-8.3 x10*3/u L Imm Gran Abs Auto 0.05 0.00-0.03 X10*3/uL Lymphocytes Absolute Auto 1.4 1.2-4.9 X10*3/u L Monocytes Absolute Auto 0.9 0.1-1.2 X10*3/uL Eosinophils Absolute Auto 2.0 0.0-0.4 X10*3/u L Basophils Absolute Auto 0.1 0.0-0.2 X10*3/uL NRBC Abs Auto 0.000 0.0-0.012 X10*3/uL White Blood Count 13.6 4.8-10.8 X10*3/uL Red Blood Count 4.33 4.60-5.80 X10*6/uL Hemoglobin 11.6 14.0-18.0 g/dl Hematocrit 36.9 42.0-52.0 % Mean Corpuscular Volume 85.2 80.0-98.0 fL Mean Corpuscular Hemoglobin 26.8 27.0-33.0 pg Mean Corpuscular HGB Conc 31.4 31.0-36.0 g/dl Red Cell Distribution Width 19.5 11.0-16.0 % Platelet Count TNP 160-400 X10*3/uL Platelet clumps noted. Platelet count will not be accurate. Platelet clumps noted. Platelet count will not be accurate. Recollecting the platelet count in a blue top tube may Recollecting the platelet count in a blue top tube may eliminate platelet clumps. Order platelet count blue top eliminate platelet clumps. Order platelet count blue top tube. A lavender top tube must be drawn if CBC is required. tube. A lavender top tube must be drawn if CBC is required. Neutrophils Percent Auto 67.0 45-73 % Imm Gran Pct Auto 0.4 0.0-0.4 % Lymphocytes Percent Auto 10.1 20-40 % Monocytes Percent Auto 6.8 2-11 % Eosinophils Percent Auto 14.7 0-4 % Basophils Percent Auto 1.0 0-2 % NRBC Pct Auto 0.0 0.0-0.2 /100WBC Neutrophils Absolute Auto 9.1 2.0-8.3 x10*3/u L Imm Gran Abs Auto 0.05 0.00-0.03 X10*3/uL Lymphocytes Absolute Auto 1.4 1.2-4.9 X10*3/u L Monocytes Absolute Auto 0.9 0.1-1.2 X10*3/uL Eosinophils Absolute Auto 2.0 0.0-0.4 X10*3/u L Basophils Absolute Auto 0.1 0.0-0.2 X10*3/uL NRBC Abs Auto 0.000 0.0-0.012 X10*3/uL CORRECTED REPORT CORRECTED REPORT REASON FOR VISIT repeat CBC with diff Encounters Encounter Location Date Provider Diagnosis Chico Bojorquez MD [address] [place], [place] [phone] 01/05/2025 Chico Bojorquez Iron deficiency anemia, unspecified iron deficiency anemia type D50.9 Assessments Encounter Date Diagnosis (ICD Code) Assessment Notes Treatment Notes Treatment Clinical Notes Section Notes 01/05/2025 Iron deficiency anemia, unspecified iron deficiency anemia type (ICD-10 - D50.9) Plan Of Treatment Next Appt Details Provider Name:Chico moon, 01/11/2026 01:30:00 PM, [address] [place] [address] Drive, [address], [place], [place], [phone], Progress Notes * Too YOUNGDOB: 6 (89 yo M)Acc No.[id number]:01/05/2025 Progress Note Patient: Too BREWER Provider: Myriam Bojorquez MD :1935 A ge:89 Y S ex:Male Date:01/05/2025 Address:[address] [place], [place] [phone] Subjective: * Chief Complaints: * 1 . repeat CBC with diff. * Medical History: Objective: * Vitals: Assessment: * Assessment: 1. I dayday deficiency anemia, unspecified iron deficiency anemia type - D50.9 (Primary) ? Plan: * Treatment: * Procedure Codes: 3 6415 VENIPUNCT, ROUTINE* * * The named appointment provid er may or may not be the originator of this progress note, and it is not deemed complete until electronically signed by the appointment provider. Sign off status: Pending * Provider: Myriam Bojorquez MD Date: 0 01/05/2025 Generated for Nikolay tejeda/Keith/Mananitting on: 11/09/2024 03:14 AM EST
--- OUTSIDE RECORDS SUMMARY | 2025-01-14 07:04 | XMS_ITS ---
Author Organization Chico Bojorquez MD Address [address] [place] [phone] Care Team Providers Care Hedge Fund Principal Name Role Phone JanetChico caldwell Primary Care Provider REASON FOR VISIT Chest CT Scan due Encounters Encounter Location Date Provider Diagnosis Chico Bojorquez MD [address] [facility] [address] [place] [phone] 01/14/2025 Chico Bojorquez Plan Of Treatment Next Appt Details Provider Name:Chico moon, 01/11/2026 01:30:00 PM, [address] [facility], [address] [place] [address], [phone], Progress Notes * Too YOUNGDOB: 6 (89 yo M)Acc No.[id number]:01/14/2025 Patient: Too BREWER :1935 A ge:89 Y S ex:Male Address:[address] [place] [address] * true * Date: Generated for Nikolay tejeda/Keith/Shannon on: 11/09/2024 03:13 AM EST
--- OUTSIDE RECORDS SUMMARY | 2025-01-18 05:07 | XMS_ITS ---
Author Organization Chico Bojorquez MD Address [address] [place] [phone] Care Team Providers Care Mail Distribution Clerk Name Role Phone Chico Bojorquez Primary Care Provider [phone] REASON FOR VISIT Protective Services [phone] Encounters Encounter Location Date Provider Diagnosis Chico Bojorquez MD [address] [facility] [address] [place] [phone] 01/18/2025 Chico Bojorquez Plan Of Treatment Next Appt Details Provider Name:Chico moon, 01/11/2026 01:30:00 PM, [address], Suite [facility], [place], [place], [phone], Progress Notes * Too YOUNGDOB: 6 (89 yo M)Acc No.[id number]:01/18/2025 Patient: Too BREWER :1935 A ge:89 Y S ex:Male Address:[address] [place] [address] * true * Date: Generated for Nikolay tejeda/Keith/Mananitting on: 11/09/2024 03:13 AM EST
--- OUTSIDE RECORDS SUMMARY | 2025-03-26 02:18 | XMS_ITS ---
Author Organization Chico Bojorquez MD Address [address] [place] [phone] Care Team Providers Care Cupola Operator Name Role Phone Chico Bojorquez Primary Care Provider [phone] REASON FOR VISIT pet scan order for [facility] [place] Encounters Encounter Location Date Provider Diagnosis Chico Bojorquez MD [address] [place] [phone] 03/26/2025 Chico Bojorquez Lung nodules R91.8 Assessments Encounter Date Diagnosis (ICD Code) Assessment Notes Treatment Notes Treatment Clinical Notes Section Notes 03/26/2025 Lung nodules (ICD-10 - R91.8) Plan Of Treatment Pending Test Test Name Order Date PET CT fusion skull to thigh 03/26/2025 Next Appt Details Provider Name:Chico moon, 01/11/2026 01:30:00 PM, [address], Suite [facility], [place], [place], [phone], Progress Notes * Too YOUNGDOB: 6 (89 yo M)Acc No.[id number]:03/26/2025 Patient: Too BREWER :1935 A ge:89 Y S ex:Male Address:[address] [place] [address] Subjective: * Chief Complaints: * p et scan order for [facility] [place] * Medical History: * Surgical History: * Hospitalization/Major Diagno stic Procedure: * Medications: Objective: * Vitals: * Physical Examination: Assessment: * Assessment: 1. L treva nodules - R91.8 Plan: * Treatment: * Procedure Codes: * true * Date: Generated for Nikolay tejeda/Keith/eTransmitting on: 11/09/2024 03:13 AM EST
--- OUTSIDE RECORDS SUMMARY | 2025-03-30 09:14 | XMS_ITS ---
Author Organization Chico Bojorquez MD Address [address] [place] [phone] Care Team Providers Care Pocket Closer Name Role Phone BarbaraSamy plascencian Primary Care Provider [phone] Encounters Encounter Location Date Provider Diagnosis Chico Bojorquez MD 10 [facility] [address] [place] [phone] 03/30/2025 Chico Bojorquez Plan Of Treatment Next Appt Details Provider Name:Chico Clark ier, 01/11/2026 01:30:00 PM, [address], [address] [place] [address], [phone], Progress Notes * Too YOUNGDOB: 6 (89 yo M)Acc No.[id number]:03/30/2025 Patient: Too BREWER :1935 A ge:89 Y S ex:Male Address:[address] [place] [address] * true * Date: Generated for Printi ng/Faxing/eTransmitting on: 11/09/2024 03:12 AM EST
--- OUTSIDE RECORDS SUMMARY | 2025-04-13 08:30 | XMS_ITS ---
Author Organization Chico Bojorquez MD Address [address] [place] [phone] Care Team Providers Care Apparel Sales Leader Name Role Phone Chico Bojorquez Primary Care Provider Allergies No Known Allergies Results Component Value Reference Range Notes Hemoglobin A1c Reviewed date:04/13/2025 01:35:15 PM Interpretation: Performing Lab: Notes/Report: Hemoglobin A1c 5.3 Glucose, finger stick Reviewed date:04/13/2025 01:29:06 PM Interpretation: Performing Lab: Notes/Report: Value 127 REASON FOR VISIT 3 MO F/U, Accompanied by daughter Medications Medication SIG (Take, Route, Frequency, Duration) Notes Start Date End Date Status Atorvastatin Calcium 10 MG TAKE 1 TABLET BY MOUTH EVERY DAY for 90 Active Ferrous Sulfate 325 (65 Fe) MG TAKE 1 TABLET BY MOUTH EVERY DAY FOR 30 DAYS Active Furosemide 20 MG TAKE 1 TABLET BY EVERY DAY FOR 30 DAYS Active Fluticasone Furoate 27.5 MCG/SPRAY 1 puff in each nostril Nasally Once a day for 30 11/24/2013 Active Aspirin 81 MG 1 tablet Orally Once a day for 30 day(s) Active Omeprazole 20 MG TAKE 1 CAPSULE BY MO UTH EVERY DAY Orally Once a day for 90 days Active Vitamin B50 Complex Orally once a day Active Ipratropium Cross 0.06 % 2 sprays in e ach nostril Nasally Three times a day for 4 day(s) Active Trelegy Ellipta 200-62.5-25 MCG/ACT 1 puff Inhalation Once a day Active Citalopram Hydrobromide 20 MG TAKE 1 TABLET BY MOUTH EVERY DAY Active Betamethasone Dipropionate 0.05 % 1 application Externally Once a day Active Vitamin D 25 MCG (1000 UT) 1 tablet Oral ly Once a day Active Vital Signs Blood pressure systolic 128 mm Hg 04/13/20 25 Blood pressure diastolic 50 mm Hg 025 Height 68 in 04/13/2025 Weight 137 lbs 04/13/2025 BMI 20.83 kg/m2 04/13/2025 Encounters Encounter Location Date Provider Diagnosis Chico Bojorquez MD [address] [place] [address] [place] [phone] 04/13/2025 Chico Bojorquez Prediabetes R73.09 ; Headache R51 and Dysthymia F34.1 Assessments Encounter Date Diagnosis (ICD Code) Assessment Notes Treatment Notes Treatment Clinical Notes Section Notes 04/13/2025 Prediabetes (ICD-10 - R73.09) stable, no need for medication at this time 04/13/2025 Headache (ICD-10 - R51) pending PET Scan 04/13/2025 Dysthymia (ICD-10 - F34.1) stable, will continue current regiment Plan Of Treatment Medication Medication Name Sig Start Date Stop Date Notes Citalopram Hydrobromide 20 MG TAKE 1 TAB LET BY MOUTH EVERY DAY Treatment Notes Assessment Notes Prediabetes stable, no need for medication at this time Headache pending PET Scan Dysthymia stable, will continu e current regiment Next Appt Details Follow Up: 3 Months, Reason: Provider Name:Chico moon, 01/11/2026 01:30:00 PM, [address] [place] [address], Suite [facility], [place], [place], [phone], Progress Notes * Too YOUNGDOB: 6 (89 yo M)Acc No.[id number]:04/13/2025 Progress Notes Patient: Too BREWER Provider: Myriam Bojorquez MD :1935 A ge:89 Y S ex:Male Date:04/13/2025 Address:[address] [place] [address], [phone] Subjective: * Chief Complaints: * 3 MO F/UAccompanied by daughter * HPI: S ymptom(s): patient is a 89 yo male here for 3 month follow up visit. has pain in head. getting pet scan but was cancelled as the machine was malfunctioning. * ROS: G eneral/Constitutional: Denies C hills. D enies F atigue. D enies F ever. D enies H eadache. E NT: Denies S ore throat. E ndocrine: Denies D izziness. D enies E xcessive sweating.?Denies E xcessive thirst. D enies F requent urination. R espiratory: Denies C ough. D enies S hortness of breath at rest. A dmits S hortness of breath with exertion. G astrointestinal: Denies D iarrhea. D enies N ausea. N eurologic: Patient complaining of h as head pain that comes and goes and is getting better. * Medical History: * Surgical History: * Hospitalization/Major Diagno stic Procedure: * Medications: T akingVitamin D 25 MCG (1000 UT) Tablet 1 tablet Orally Once a day Betamethasone Dipropionate 0.05 % Cream 1 application Externally Once a day Trelegy Ellipta 200-62.5-25 MCG/ACT Aerosol Powder Breath Activated 1 puff Inhalation Once a day Ipratropium Cross 0.06 % Solution 2 sprays in each nostril Nasally Three times a day Vitamin B50 Complex Tablet Extended Release Orally once a day Citalopram Hydrobromide 20 MG Tablet TAKE 1 TABLET BY MOUTH EVERY DAY Omeprazole 20 MG Capsule Delayed Release TAKE [...] BY MOUTH EVERY DAY FOR 30 DAYS Atorvastatin Calcium 10 MG Tablet TAKE 1 TABLET BY MOUTH EVERY DAY Medication List reviewed and reconciled with the patientTaking Vitamin D 25 MCG (1000 UT) Tablet 1 tablet Orally Once a day Taking Betamethasone Dipropionate 0.05 % Cream 1 application Externally Once a day Taking Trelegy Ellipta 200-62.5-25 MCG/ACT Aerosol Powder Breath Activated 1 puff Inhalation Once a day Taking Ipratropium Cross 0.06 % Solution 2 sprays in each nostril Nasally Three times a day Taking Vitamin B50 Complex Tablet Extended Release Orally once a day Taking Citalopram Hydrobromide 20 MG Tablet TAKE 1 TABLET BY MOUTH EVERY DAY Taking Omeprazole 20 MG Capsule Delayed Release [...] MOUTH EVERY DAY FOR 30 DAYS Taking Atorvastatin Calcium 10 MG Tablet TAKE 1 TABLET BY MOUTH EVERY DAY Medication List reviewed and reconciled with the patient * Allergies: N .K.D.A.yes[Allergies Verified] Objective: * Vitals: H t: 68, Wt: 137, BMI:20.83, BP:128/50, Wt-k.14. * Examination: G eneral Examination: GENERAL APPEARANCE: p leasant, well nourished, well developed, in no acute distress. HEAD: n ormocephalic no tenderness over the temproral artery. SKIN: g ood turgor. HEART: r egular rate and rhythm, no murmurs, rubs, gallops.? LUNGS: n o wheezes, rales, rhonchi, good air movement, clear to auscultation bilaterally. Assessment: * Assessment: 1. P rediabetes - R73.09 (Primary) 2 . H eadache - R51 3 .?Dysthymia - F34.1 Plan: * Treatment: Value Reference Range H emoglobin A1c 5.3 ?LAB: Glucose, finger stick (Collection Date & Time - 04/13/2025)* Value Reference Range V alue 127 Notes: stable, no need for medication at this time??2.?Headache? Notes: pending PET Scan??3.?Dysthymia? Continue Citalopram Hydrobromide Tablet, 20 MG, TAKE 1 TABLET BY MOUTH EVERY DAY.?? Notes: stable, will continue current regiment?? * Procedure Codes: 8 2947 ASSAY, GLUCOSE, BLOOD QUANT, Modifiers: QW 78410 GLYCATED HEMOGLOBIN TEST, Modifiers: QW * Follow Up: 3 Months * * Sign off status: Completed true * Provider: Myriam Bojorquez MD Date: 0 04/13/2025 Generated for Nikolay tejeda/Keith/Shannon on: 11/09/2024 03:13 AM EST History and Physical Notes * HPI (History of Present Illness) Category Sub-Category Detail Notes Category Not es Symptom(s) patient is a 89 yo male here for 3 month follow up visit. has pain in head. getting pet scan but was cancelled as the machine was malfunctioning. Examination Category Sub-Category Detail Notes Category Not es General Examination GENERAL APPEARANCE: pleasant , well nourished, well developed, in no acute distress HEAD: normocephalic no ten derness over the temproral artery HEART: regular rate and rhy thm, no murmurs, rubs, gallops LUNGS: no wheezes, rales, r honchi, good air movement, clear to auscultation bilaterally SKIN: good turgor
--- OUTSIDE RECORDS SUMMARY | 2025-07-12 08:30 | XMS_ITS ---
Author Organization Chico Bojorquez MD Address [address] [place] [phone] Care Team Providers Care Coiled Tubing Operator Name Role Phone Chico Bojorquez Primary Care Provider Allergies No Known Allergies REASON FOR VISIT 3 month, Accompanied by daughter Medications Medication SIG (Take, Route, Frequency, Duration) Notes Start Date End Date Status Aspirin 81 MG 1 tablet Orally Once a day for 30 day(s) Active Ferrous Sulfate 325 (65 Fe) MG TAKE 1 TABLET BY MOUTH EVERY DAY FOR 30 DAYS Active Atorvastatin Calcium 10 MG TAKE 1 TABLET BY MOUTH EVERY DAY for 90 Active Fluticasone Furoate 27.5 MCG/SPRAY 1 puff in each nostril Nasally Once a day for 30 11/24/2013 Active Furosemide 20 MG TAKE 1 TABLET BY EVANGELINA TH EVERY DAY FOR 30 DAYS Active Omeprazole 20 MG TAKE 1 CAPSULE BY MO [facility] EVERY DAY Orally Once a day for 90 days Active Vitamin B50 Complex Orally once a day Active Ipratropium [place] 0.06 % 2 sprays in e ach nostril Nasally Three times a day Active Vitamin D 25 MCG (1000 UT) 1 tablet Oral ly Once a day Active Betamethasone Dipropionate 0.05 % 1 application Externally Once a day Active Citalopram Hydrobromide 20 MG TAKE 1 TABLET BY MOUTH EVERY DAY for 90 Active Trelegy Ellipta 200-62.5-25 MCG/ACT 1 puff Inhalation Once a day Active Immunizations Vaccine Route Administration Date Status Comme nts Fluarix Quadrivalent - 150 IM Intramuscular 07/12/2025 Adm inistered Problems Problem Type SNOMED Code ICD Code Onset Dates Problem Status W/U Status Risk Notes Problem 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0 ; Dementia F03.90 and Encounter for administration of vaccine Z23 Assessments Encounter Date Diagnosis (ICD Code) Assessment Notes Treatment Notes Treatment Clinical Notes Section Notes 07/12/2025 COPD (chronic obstructive pulmonary disease) (ICD-10 - J44.9) pet scan negative. lungs clear 07/12/2025 Essential hypertension (ICD-10 - I10) doing well 07/12/2025 Rhinitis, atrophic (ICD-10 - J31.0) doing well with ipatroprium 07/12/2025 Dementia (ICD-10 - F03.90) we discussed aricept and decided not to try it 07/12/2025 Encounter for administration of vaccine (ICD-10 - Z23) HD flu vaccine administered Plan Of Treatment Medication Medication Name Sig Start Date Stop Date Notes Ipratropium [place] 0.06 % 2 sprays in e ach nostril Nasally Three times a day Trelegy Ellipta 200-62.5-25 MCG/ACT 1 puff Inhalation Once a day Treatment Notes Assessment Notes COPD (chronic obstructive pulmonary dise ase) pet scan negative. lungs clear Essential hypertension doing well Rhinitis, atrophic doing well with ipat roprium Dementia we discussed aricept and decided not to try it Encounter for administration of vaccine HD flu vaccine administered Next Appt Details Follow Up: 6 Months, Reason: Provider Name:Chico Clark ier, 01/11/2026 01:30:00 PM, [address] [place] [address], Suite [facility], [place], [place], [phone], Progress Notes * Too YOUNGDOB: [birth year] (89 yo M)Acc No.[id number]:07/12/2025 Progress Notes Patient: Too BREWER Provider: Myriam Bojorquez MD :1935 A ge:89 Y S ex:Male Date:07/12/2025 Address:[address] [place], [place] [phone] Subjective: * Chief Complaints: * 3 monthAccompanied by daughter * HPI: S ymptom(s): patient is a 89 yo male here for 3 month follow up visit/ here for follow up. had appt at [facility]. * ROS: G eneral/Constitutional: Denies C hills. D enies F atigue. D enies F ever. D enies H eadache. E NT: Denies S ore throat. R espiratory: Denies C ough. D enies S hortness of breath at rest. D enies S hortness of breath with exertion. G astrointestinal: Denies D iarrhea. D enies N ausea. * Medical History: * Surgical History: * Hospitalization/Major Diagno stic Procedure: * Medications: T akingVitamin D 25 MCG (1000 UT) Tablet 1 tablet Orally Once a day Betamethasone Dipropionate 0.05 % Cream 1 application Externally Once a day Trelegy Ellipta 200-62.5-25 MCG/ACT Aerosol Powder Breath Activated 1 puff Inhalation Once a day Ipratropium [place] 0.06 % Solution 2 sprays in each nostril Nasally Three times a day Vitamin B50 Complex Tablet Extended Release Orally once a day Omeprazole 20 MG Capsule Delayed [...] TAKE 1 TABLET BY MOUTH EVERY DAY Citalopram Hydrobromide 20 MG Tablet TAKE 1 TABLET BY MOUTH EVERY DAY Medication List reviewed and reconciled with the patientTaking Vitamin D 25 MCG (1000 UT) Tablet 1 tablet Orally Once a day Taking Betamethasone Dipropionate 0.05 % Cream 1 application Externally Once a day Taking Trelegy Ellipta 200-62.5-25 MCG/ACT Aerosol Powder Breath Activated 1 puff Inhalation Once a day Taking Ipratropium [place] 0.06 % Solution 2 sprays in each nostril Nasally Three times a day Taking Vitamin B50 Complex Tablet Extended Release Orally once a day Taking Omeprazole 20 MG Capsule [...] 1 TABLET BY MOUTH EVERY DAY Taking Citalopram Hydrobromide 20 MG Tablet TAKE 1 TABLET BY MOUTH EVERY DAY Medication List reviewed and reconciled with the patient * Allergies: N .K.D.A.yes[Allergies Verified] Objective: * Vitals: H t: 68, Wt: 142, BMI:21.59, BP:150/62, Repeat BP:130/60, Wt-k.41. weight is up 5 pounds since 04-13-25. * Examination: G eneral Examination: GENERAL APPEARANCE: a lert, well hydrated, in no distress.? HEAD: n ormocephalic. SKIN: w ith constant itching all over.. HEART: n o murmurs, rubs, gallops, regular rate and rhythm.? LUNGS: n o wheezes, rales, rhonchi, good air movement, clear to auscultation bilaterally. Assessment: * Assessment: 1. C OPD (chronic obstructive pulmonary disease) - J44.9 (Primary) 2 . E ssential hypertension - I10 3 . R hinitis, atrophic - J31.0 4 .?Dementia - F03.90 5 . E ncounter for administration of vaccine - Z23 ? Plan: * Treatment: 2. E ssential hypertension Notes: doing well 3. R hinitis, atrophic Notes: doing well with ipatroprium 4. D ementia Notes: we discussed aricept and decided not to try it 5. E ncounter for administration of vaccine Notes: HD flu vaccine administered * Immunizations: Fluarix Quadrivalent - 150 : 0.5 mL (Dose No:1) (Route: Intramuscular) given by Jodie Palacios , Office Staff on Right Deltoid * Procedure Codes: 9 0656 FLU VACCINE NO PRESERV 3 & >G0008 ADMN FLU VAC NO FEE SCHED SAME DAY * Preventive Medicine: COPD Care Plan: P atient Lifestyle Goals R elieve symptoms and improve quality of life, Be able to be more active with friends and family. T reatment Goals t justice medicine exactly as precribed and plan for RX refills, Exercise to help the whole body, including lungs, Eat a nutritious diet and increase water consumption to 6-8 glasses a day. B arriers N o Specific barriers. S elf-Managment Plan E at a healthy diet, Get an air purifier for the rooms you are in the most. E xpected Outcome m anaging symptoms like dyspnea (breathlessness), improving quality of life, slowing disease progression through measures like smoking cessation, medication adherence, and pulmonary rehabilitation., improving quality of life. CHF Care Plan: P atient Lifestyle Goals R elieve symptoms and improve quality of life. T reatment Goals W eigh yourself every day to see if you are retaining fluid. Call office if + or - 5lbs from previous day. B arriers N o Specific barriers. S elf-Managment Goals M onitor your symptoms daily. E xpected Outcome m anaging symptoms like shortness of breath and fatigue, improving quality of life; while aiming to slow the progression of the disease and prevent further deterioration of heart function. Immunizations: I nfluenza H ave you had a flu shot since the most recent June 21? Y es. * Follow Up: 6 Months * * Sign off status: Completed true * Provider: Myriam Bojorquez MD Date: 0 07/12/2025 Generated for Nikolay tejeda/Keith/Mananitting on: 11/09/2024 03:12 AM EST History and Physical Notes * HPI (History of Present Illness) Category Sub-Category Detail Notes Category Not es Symptom(s) patient is a 89 yo male here for 3 month follow up visit/ here for follow up. had appt at [facility] Examination Category Sub-Category Detail Notes Category Not es General Examination GENERAL APPEARANCE: alert, w ell hydrated, in no distress HEAD: normocephalic HEART: no murmurs, rubs, ga llops, regular rate and rhythm LUNGS: no wheezes, rales, r honchi, good air movement, clear to auscultation bilaterally SKIN: with constant itchin g all over.
--- NOTE | ~2025-09-08 | XR_ITS ---
EXAMINATION: XR FINGER, LEFT CLINICAL INFORMATION: L finger deformity?ruptured tendon COMPARISON: None available. TECHNIQUE: 4 views of the left fifth digit. FINDINGS: There is no fracture, dislocation, or suspicious bone lesion. On the lateral projection, there is an extension deformity of the DIP joint of the fifth digit. Mild degenerative changes first MCP joint. Joint spaces are grossly preserved. Alignment is otherwise normal. No soft tissue abnormalities. XR/XR finger LT min 2V IMPRESSION: 1. Fifth digit demonstrating an extension deformity of the DIP joint of the fifth digit during flexion. No underlying fracture or dislocation. Electronically signed by: Saad Valle MD 09/08/2025 02:28 PM EST
[2025-09-08 13:43] VITALS: BP 113/55; PULSE 71; RESP 18; TEMP 36.6; O2SAT 94; BMI 22.5
--- NOTE | 2025-09-08 13:48 | ED_ITS ---
HPI - Extremity Problem General Chief complaint: Extremity Injury, Upper Stated complaint: finger issue Time Seen by Provider: 09/08/25 14:52 Source: patient and family Mode of arrival: ambulatory Limitations: no limitations History of Present Illness ED Provider: DR. Lopez HPI Narrative: 89-year-old male PMHx significant for COPD, PE, CHF, HTN, presented with about 2 weeks of left 5th finger pain and the distal phalanx is hyper extended, no known trauma or fall recently, no history of ligamentous hand injury in the past. Otherwise patient has no complaint today. Related Data Home Medications ?Medication ?Instructions ?Recorded ?Confirmed aspirin 81 mg tablet,delayed 81 mg PO DAILY 02/22/21 0 11/26/24 release (Adult Low Dose Aspirin) atorvastatin 10 mg tablet 10 mg PO DAILY 02/22/2104/14 citalopram 20 mg tablet 20 mg PO DAILY 02/22/2104/14 omeprazole 20 mg capsule,delayed 20 mg PO DAILY@0630 0 02/22/21 11/26/24 release ipratropium bromide 42 mcg (0.06 2 spray intranasal BI D 08/02/23 11/26/24 %) nasal spray betamethasone dipropionate 0.05 % 1 appl topical DAILY 08/04/24 11/26/24 topical cream mupirocin 2 % topical ointment 1 appl topical BID 07/1411/26/24 albuterol sulfate 90 mcg/actuation 2 puff inhalation Q 4H PRN 09/29/24 11/26/24 aerosol inhaler shortness of breath or wheez ing docusate sodium 100 mg capsule 100 mg PO BID PRN Const ipation 11/26/24 11/26/24 (Colace) multivitamin 1 tab PO DAILY 11/26/2404/14 zinc glycinate 20 mg capsule 20 mg PO DAILY 11/26/24 0 11/26/24 Previous Rx's ?Medication ?Instructions ?Recorded albuterol sulfate 2.5 mg/3 mL 2.5 mg (3 mL) inhalation Q4-6H PRN 05/28/23 (0.083 %) solution for nebulization shortness of breat h or wheezing #90 mL furosemide 20 mg tablet 20 mg PO DAILY #30 tabs 07/21 07/13 fluticasone fur. 200 mcg-umeclid 1 inh inhalation HELEN Y #60 ea 01/30/24 62.5 mcg-vilant 25 mcg inhalat.powder (Trelegy Ellipta) Allergies Allergy/AdvReac Type Severity Reaction Status Date / Time No Known Allergies Allergy Unknown NOT Verified 09/08/25 13:47 APPLICABLE Review of Systems Review of Systems: All other systems are reviewed and are negative Constitutional: Reports as per HPI and Reports no additional constitutional complaints Eyes: Reports as per HPI and Reports no additional eye complaints Reports system reviewed and no additional complaints, except as documented Cardiovascular: Reports as per HPI and Reports no additional cardiovascular complaints Respiratory: Reports as per HPI and Reports no additional respiratory complaints Gastrointestinal: Reports as per HPI and Reports no additional gastrointestinal complaints Genitourinary: Reports no additional female genitourinary complaints Musculoskeletal: Reports no additional musculoskeletal complaints Skin/Breast: Reports system reviewed and no additional complaints, except as docu Psychiatric: Reports no additional psychiatric complaints Endocrine: Reports no additional endocrine complaints Hematologic/Lymphatic: Reports no additional hematologic/lymphatic complaints Allergic/Immunologic: Reports no additional allergic/immunologic complaints Reports system reviewed and no additional complaints, except as documented and Reports Abnormal speech present [facility] Past Medical History Medical History COPD (chronic obstructive pulmonary disease) PAD (peripheral artery disease) CHF (congestive heart failure) HTN (hypertension) Bilateral carotid artery disease Surgical History Hx of prostatectomy Hx of hernia repair Hx of rotator cuff surgery Family History Family History Father CVD (cardiovascular disease) Mother No problems noted. Social History Social History Household Members: None Housing: House Do you presently have visiting nurse or other home services: Yes Alcohol intake: former Patient Tobacco Use Status: Former Tobacco user Cigarette Packs Per Day: 2 Cigarettes Per Day: 40.0 Advance Directives: No Advance Directives Information Provided: Yes Do you have a plan to hurt others: No Plan service: No Physical Exam Vital Signs: Vital Signs: Last Vital Signs Temp 97.8 F 09/08/25 13:43 Pulse 71 09/08/25 13:43 Resp 18 09/08/25 13:43 BP 113/55 L 09/08/25 13:43 Pulse Ox 94 09/08/25 13:43 O2 Del Method Room Air 09/08/25 13:43 BMI result Body Mass Index 22.5 Vital signs have been reviewed and appear to be correct. Blood pressure elevated. Heart rate normal. Respiratory rate normal. Temperature normal. Oxygen saturation normal. Appearance: Alert. Oriented X3. No acute distress. Head: Normal external exam. Normocephalic. Atraumatic. No Jade signs noted. No raccoon eyes noted Eyes: PERRLA. EOMI. Conjunctiva and sclera normal. Eyelids normal. ENT: TM's Normal. Pharynx normal. Uvula midline. Moist mucous membranes. No trismus noted. No drooling noted. No muffled voice noted. Neck: Normal inspection. Neck supple. FROM. No adenopathy. Thyroid Normal. No meningeal signs. No neck mass noted. CVS: Normal heart rate and rhythm. Heart sound normal. No murmurs noted. Pulses normal throughout. Respiratory: No respiratory distress. Painless inspiration. Breath sounds normal. No wheezes/rales/rhonchi noted. Chest nontender. No accessory muscle usage noted or decreased air movement noted. Abdomen: Soft and nontender. Bowel sounds normal in all 4 quadrants. No distention noted. No organomegaly noted. No visible injury noted. Back: No CVA tenderness. Full range of motion noted. Skin: Skin warm and dry. Normal skin color. Normal skin turgor. No rashes/lesions/lacerations noted. Extremities: Left hand: Hyperextended left 5th finger DIP even with flexing the finger, able to straighten the DIP was slight tenderness, no step-off, no deformity, strong left radial pulsation, cap refill is less than 3 seconds. Neuro: Oriented X 3. Cranial nerve exam: II-XII are grossly intact No motor deficit. No sensory deficit. Reflexes normal. Course Course Course Narrative: This is a Rapid Medical Exam performed in triage by Carin Leger PA-C. Full HPI, ROS and PE to be performed by primary ED provider. 89-year-old male with a past medical history COPD, PE, CHF, HTN presenting to the ED c/o left pinky finger pain and deformity x 1 week. Denies known injury, trauma or fall PE: DIP stuck in hyperextension, PIP w/painful ROM Plan: XR Reevaluation(s) Reevaluation #1: 89-year-old male came in with hyperextension deformity of the left 5th DIP likely represent ligamentous injury. Finger was splinted with a finger splint, was advised to follow-up with Dr. Lopez hand clinic. Time: 15:14 Medical Decision Making Differential Diagnosis Differential Diagnoses: The differential diagnosis associated with the presentation includes (Mallate finger, trigger finger, ligamentous injury, fracture, dislocation., neurovascular compromise.) Admission/Observation Consideration of admission/observation: Escalation of care including admission/observation considered Independent Interpretation I performed an independent interpretation of an: Plain X-Ray (Left 5th digit:1. Fifth digit demonstrating an extension deformity of the DIP joint of the fifth digit during flexion. No underlying fracture or dislocation. ) Radiology Impression Discussion of test interpretation with radiology: I have reviewed the radiologist's reading. Discharge Plan Discharge Clinical Impression: Trigger finger, left Patient Disposition: Home, Self-Care Instructions: Trigger Finger (ED) Prescriptions: No Action albuterol sulfate 2.5 mg /3 mL (0.083 %) solution for nebulization 2.5 mg inhalation Q4-6H PRN (Reason: shortness of breath or wheezing) Qty: 90 0RF Trelegy Ellipta 200-62.5-25 mcg blister with device 1 inh inhalation DAILY Qty: 60 6RF ipratropium bromide 42 mcg (0.06 %) spray,non-aerosol 2 spray intranasal BID furosemide 20 mg tablet 20 mg PO DAILY Qty: 30 0RF betamethasone dipropionate 0.05 % cream 1 appl TOPICAL DAILY mupirocin 2 % ointment 1 appl topical BID albuterol sulfate 90 mcg/actuation HFA aerosol inhaler 2 puff inhalation Q4H PRN (Reason: shortness of breath or wheezing) docusate sodium [Colace] 100 mg capsule 100 mg PO BID PRN (Reason: Constipation) citalopram 20 mg tablet 20 mg PO DAILY omeprazole 20 mg capsule,delayed release(DR/EC) 20 mg PO DAILY@0630 atorvastatin 10 mg tablet 10 mg PO DAILY aspirin [Adult Low Dose Aspirin] 81 mg tablet,delayed release (DR/EC) 81 mg PO DAILY zinc glycinate 20 mg capsule 20 mg PO DAILY multivitamin Tablet 1 tab PO DAILY Referrals: Chico Bojorquez MD [Primary Care Provider, Medical] Richelle Lopez MD [Physician, Hand Surgery] Print Language: Solomon Islander
[2025-09-08 15:25] VITALS: BP 138/63; PULSE 70; RESP 16; TEMP 36.1; O2SAT 94
--- OUTSIDE RECORDS SUMMARY | 2025-09-09 03:12 | XMS_ITS | Encounter Summary ---
Author Organization [facility] Address [address] [place] [address] Care Team Providers Care Document Control Manager Name Role Phone Chico Bojorquez MD Primary Care Provider [phone] Encounter Details Date Type Department Care Team (Late st Contact Info) Description 04/21/2024 Scanned Document [facility] [address] [place] [phone] Lorie Mathew MD [address] [place] [address] [address] [place] [address] Social History Tobacco Use Types Packs/Day Years Used Date Smoking Tobacco: Former Cigarettes Q uit: 5 Smokeless Tobacco: Never Alcohol Use Standard Drinks/Week Comments No 0 (1 standard drink = 0.6 oz pur e alcohol) Sex and Gender Information Value Date Recorded Sex Assigned at Male 08/28/2024 8:58 AM EST Legal Sex Male 4:32 PM EDT Gender Identity Choose not to disclose 8:58 AM EST Sexual Orientation Choose not to disclose 2023 8:58 AM EST documented as of this encounter Plan of Treatment Not on file documented as of this encounter Visit Diagnoses Not on filedocumented in this encounter Care Teams Document Control Manager Relationship Specialty Start Date End Date Chico Bojorquez MD [address] [place] [address] [place] [address] PCP - General Internal Medicine 12/04/17 documented as of this encounter
--- OUTSIDE RECORDS SUMMARY | 2025-09-09 03:12 | XMS_ITS | Patient Health Record ---
Author Organization [facility] Address [address] [place] [address] Care Team Providers Care Asphalt Roller Person Name Role Phone Chico Bojorquez MD Primary Care Provider Sharad Salcedo Unavailable [phone] Reason For Referral No Information Medications Medication SIG (Take, Route, Frequency, Duration) Notes Start Date End Date Status Omeprazole Active traMADol HCl Active Aspirin Active Atorvastatin Calcium Active ProAir HFA Active Colyte with Flavor Packs 240 GM Solution Reconstituted as directed Orally as directed; Duration: 1 dose 08/19/2013 Active Viagra Active Levitra Active Lisinopril Active Social History Social History Additional Details Category Social Info Options Details Miscellaneous: Marital status: Occupation: retired Section Notes: Nonsmoker; no sig. alcohol Problems Problem Type SNOMED Code ICD Code Onset Dates Problem Status W/U Status Risk Notes Problem Gastroesophageal reflux disease (426887235) GERD (gastroesophag eal reflux disease) (530.81) Active confirmed Problem Screening for malignant neoplasm of colon (849140031) Screening for colorectal cancer (V76.51) Active confirmed Problem History of adenomatous polyp of colon (266006196) History of adenomatous polyp of colon (V12.72) Active confirmed Plan Of Treatment Future Test Test Name Order Date COLONOSCOPY 08/19/2013 Insurance Providers Payer Name Payer Address Payer Phone Subscriber Number Group Number Insured Name Patient Relationship to Insured Coverage Start Date Coverage End Date [place] [address] [place] [address] [id number] ANDREE ROCHE Self - patient is the insured [employer] ATTN CLAIMS [address] [place] [phone] [id number] ANDREE ROCHE Self - patient is the insured Medical (General) History Medical History History ICD Code hypertension prostate cancer-s/p prostatectomy-urinar y bladder problems insomnia erectile dysfunction asbestosis rotator cuff disorder glaucoma hypercholesterolemia left ventricular hypertrophy Hyperlipidemia GERD Denies [place],DM,CVA,Lung disease,renal dise ase Surgical History Surgery Date(Month/Year) rotator cuff surgery prostatectomy for cancer Urinary bladder sling installed Left shoulder replacement in 11/2012 Upcoming cataract surgery
--- OUTSIDE RECORDS SUMMARY | 2025-09-09 03:12 | XMS_ITS | Encounter Summary ---
Author Organization [facility] Address [address] [place] [address] Care Team Providers Care Engineering Document Control Clerk Name Role Phone Chico Bojorquez MD Primary Care Provider [phone] Encounter Details Date Type Department Care Team (Late st Contact Info) Description 04/21/2024 Scanned Document [facility] [address] [place] [phone] Lorie Mathew MD [address] [place] [address] [address] [place] [address] Social History Tobacco Use Types Packs/Day Years [...] on filedocumented in this encounter Care Teams Engineering Document Control Clerk Relationship Specialty Start Date End Date Chico Bojorquez MD [address] [place] [address] [place] [address] PCP - General Internal Medicine 12/04/17 documented as of this encounter
--- OUTSIDE RECORDS SUMMARY | 2025-09-09 03:12 | XMS_ITS | Encounter Summary ---
Author Organization [facility] Address [address] [place] [address] Care Team Providers Care Health Companion Name Role Phone Chico Bojorquez MD Primary Care Provider [phone] Encounter Details Date Type Department Care Team (Late st Contact Info) Description 10/25/2023 Scanned Document [facility]monary [address] [phone] Pulmonary, Scan Social History Tobacco Use Types [...] on filedocumented in this encounter Care Teams Health Companion Relationship Specialty Start Date End Date Chico Bojorquez MD [address] [place] [address] [place] [address] PCP - General Internal Medicine 12/04/17 documented as of this encounter
--- OUTSIDE RECORDS SUMMARY | 2025-09-09 03:13 | XMS_ITS | Encounter Summary ---
Author Organization [facility] Address [address] [place] [address] Care Team Providers Care Manager Commercial Name Role Phone Chico Bojorquez MD Primary Care Provider [phone] Encounter Details Date Type Department Care Team (Late st Contact Info) Description 08/04/2021 Scanned Document [facility] PULMONOLGY SCAN Lorie Mathew MD [address] [facility] [address] [place] [address] Social History Tobacco Use Types Packs/Day Years [...] on filedocumented in this encounter Care Teams Manager Commercial Relationship Specialty Start Date End Date Chico Bojorquez MD [address] [place] [address] [place] [id number] PCP - General Internal Medicine 12/04/17 documented as of this encounter
--- OUTSIDE RECORDS SUMMARY | 2025-09-09 03:13 | XMS_ITS | Encounter Summary ---
Author Organization [facility] Address [address] [place] [address] Care Team Providers Care Childcare Center Administrator Name Role Phone Chico Bojorquez MD Primary Care Provider [phone] Encounter Details Date Type Department Care Team (Late st Contact Info) Description 07/17/2021 Scanned Document [facility] PULMONOLGY SCAN Lorie Mathew MD [address] [facility] [address] [place] [address] Social History Tobacco Use Types Packs/Day Years [...] on filedocumented in this encounter Care Teams Childcare Center Administrator Relationship Specialty Start Date End Date Chico Bojorquez MD [address] [place] [address] [place] [address] PCP - General Internal Medicine 12/04/17 documented as of this encounter
--- OUTSIDE RECORDS SUMMARY | 2025-09-09 03:13 | XMS_ITS | Encounter Summary ---
Author Organization [facility] Address [address] [place] [id number] Care Team Providers Care Benzene Worker Name Role Phone Chico Bojorquez MD Primary Care Provider [phone] Encounter Details Date Type Department Care Team (Late st Contact Info) Description 04/15/2023 Scanned Document [facility] PRIMARY CARE SCAN Primary Care, Scan [...] on filedocumented in this encounter Care Teams Benzene Worker Relationship Specialty Start Date End Date Chico Bojorquez MD [address] [place] [address] [place] [address] PCP - General Internal Medicine 12/04/17 documented as of this encounter
--- OUTSIDE RECORDS SUMMARY | 2025-09-09 03:13 | XMS_ITS | Encounter Summary ---
Author Organization [facility] Address [address] [place] [address] Care Team Providers Care Cheesemaker Helper Name Role Phone Chico Bojorquez MD Primary Care Provider [phone] Encounter Details Date Type Department Care Team (Late st Contact Info) Description 05/08/2022 Scanned Document [facility] [place] [address] [facility] [address] [place] [address] [phone] Pulmonary, Scan Social History Tobacco Use Types [...] on filedocumented in this encounter Care Teams Cheesemaker Helper Relationship Specialty Start Date End Date Chico Bojorquez MD [address] [place] [address] [place] [address] PCP - General Internal Medicine 12/04/17 documented as of this encounter
--- OUTSIDE RECORDS SUMMARY | 2025-09-09 03:14 | XMS_ITS ---
Author Name [facility] Organization Unknown History of Medication Use Medication Directions Dispensed Refills Start Date End Date Stat fluticasone-umeclidin ium-vilanterol (TRELEGY ELLIPTA) 200-62.5-25 mcg/act inhaler Inhale 1 puff daily. 01/29/2023 active azithromycin (ZITHROMAX) 250 MG tablet TAKE 1 TABLET ORALLY DAILY FOR 4 DAYS START ON DAY 2 OF THERAPY 01/13/2023 active ferrous sulfate 325 (65 FE) MG tablet Take 1 tablet (325 mg total) by mouth daily. 10/30/2022 active Xarelto 2.5 MG tablet TAKE 1 TABLET BY MOUTH TWICE A DAY 09/25/2022 08/28/2023 active fluticasone-umeclidin ium-vilanterol (TRELEGY ELLIPTA) 200-62.5-25 mcg/act inhaler Inhale 1 puff daily. 09/24/2022 01/29/2023 active albuterol (PROVENTIL) (0.083%) 2.5 mg/3 mL nebulizer solution Take 3 mL (2.5 mg total) by nebulization every 4 (four) hours as needed for wheezing or shortness of breath. 09/24/2022 active albuterol (PROVENTIL HFA; VENTOLIN HFA) 108 (90 Base) MCG/ACT inhaler INHALE 2 PUFFS EVERY 4 TO 6 HOURS NEEDED FOR SHORTNESS OF BREATH OR WHEEZING FOR 60 DAYS 09/17/2022 01/29/2023 active traMADol (ULTRAM) 50 MG tablet TAKE 1/2 TABLET BY MOUTH TWICE DAILY NEEDED FOR 7 DAYS 08/29/2022 active ipratropium (ATROVENT) 0.06 % nasal spray SPRAY 2 SPRAYS INTO BOTH NOSTRILS 3 TIMES A DAY 06/06/2022 07/18/2025 active rivaroxaban (Xarelto) 2.5 MG tablet Take 1 tablet (2.5 mg total) by mouth 2 (two) times a day. 05/21/2022 09/25/2022 active umeclidinium-vilanter ol (umeclidinium-vilante rol) 62.5-25 MCG/INH inhaler INHALE 1 PUFF BY MOUTH EVERY DAY 12/04/2021 09/24/2022 active OMEprazole (PriLOSEC) 20 MG capsule 10/19/2021 active Nebulizer Misc Nebulizer with all supplies, mask version instead of nasal cannula for oxygen, [place] [address], dx:J44.9 06/19/2021 10/16/2022 active fluticasone (FloNASE) 50 mcg/spray nasal spray SPRAY 1 SPRAY INTO EACH NOSTRIL ONCE DAILY 06/06/2021 active sildenafil (VIAGRA) 100 MG tablet TAKE 1/2 OR 1 TABLET BY MOUTH NEEDED ONCE A DAY.. 04/15/2021 active betamethasone dipropionate augmented (DIPROLENE-AF) 0.05 % cream Apply topically daily. 09/09/2017 active citalopram (CeleXA) 20 MG tablet Take 1 tablet (20 mg total) by mouth daily. 09/08/2017 active aspirin 81 MG chewable tablet Chew 81 mg. 11/26/2022 active atorvastatin (LIPITOR) 10 MG tablet Take 1 tablet (10 mg total) by mouth daily. active atorvastatin (LIPITOR) 40 MG tablet Take by mouth. active cholecalciferol (CHOLECALCIFEROL) 25 MCG (1000 UT) tablet Take 1 tablet (1,000 Units total) by mouth daily. active lisinopril (PRINIVIL,ZeSTRIL) 5 MG tablet Take 5 mg by mouth daily. active naproxen sodium (ALEVE) 220 mg tablet 1 tablet with food or milk as needed active oxybutynin (DITROPAN XL) 15 MG 24 hr tablet Take by mouth. 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 2021-12-11 [facility] Vasomotor rhinitis active EncounterDiagnosisAct [facility] (peripheral artery disease) active 2021-05-04 ProblemAct [facility] Chronic obstructive pulmonary disease active 2021-05-04 ProblemAct [facility] Encounters Encounter Type Encounter Reason Primary Diagnosis Location Date Ambulatory [facility] 12/08/2024 Ambulatory Chronic obstructive pulmonary disease, unspecified Chronic obstructive pulmonary disease, unspecified [facility] 11/30/2024 Ambulatory [facility] 04/21/2024 Ambulatory Pneumonia, unspe cified organism [facility] 01/29/2023 Ambulatory Peripheral vascu lar disease, unspecified [facility] 11/26/2022 Ambulatory Peripheral vascu lar disease, unspecified [facility] 11/26/2022 Ambulatory 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, bilateral legs [facility] 11/26/2022 Ambulatory Chronic obstruct [place] pulmonary disease, unspecified [facility] 09/24/2022 Ambulatory [facility] 09/03/2022 Ambulatory Hypoxemia [facility] 06/29/2022 Ambulatory [facility] 05/21/2022 Ambulatory [facility] 05/21/2022 Ambulatory 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, bilateral legs [facility] 05/21/2022 Ambulatory [facility] 12/11/2021 Ambulatory Shortness of breath [facility] 12/04/2021 Ambulatory [facility] 10/30/2021 Ambulatory 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, bilateral legs [facility] 10/30/2021 Ambulatory 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, bilateral legs [facility] 10/30/2021 Care Team Organization Name Specialty Phone Email Start Date End Da te [facility] ELOISE MENJIVAR Primary Care 09/03/20222024 [facility] ELOISE MENJIVAR Primary Care 10/30/20212021
--- OUTSIDE RECORDS SUMMARY | 2025-09-09 03:15 | XMS_ITS | Patient Health Record ---
Author Organization Chico Bojorquez MD Address [address] [place] [phone] Care Team Providers Care Merchandise Pickup/Receiving Associate Name Role Phone Chico Bojorquez Primary Care Provider Allergies No Known Allergies Results Component Value Reference Range Notes Hemoglobin A1c Reviewed date:04/13/2025 01:35:15 PM Interpretation: Performing Lab: Notes/Report: Hemoglobin A1c 5.3 Complete Blood Count Auto Di ff Reviewed date:01/05/2025 12:02:23 PM Interpretation: Performing Lab:[facility], [address] [place] [phone] Notes/Report: White Blood Count 13.6 4.8-10.8 X10*3/uL [...] 0.0-0.2 /100WBC Neutrophils Absolute Auto 9.1 2.0-8.3 x10*3/uL Imm Gran Abs Auto 0.05 0.00-0.03 X10*3/uL Lymphocytes Absolute Auto 1.4 1.2-4.9 X10*3/uL Monocytes Absolute Auto 0.9 0.1-1.2 X10*3/uL Eosinophils Absolute Auto 2.0 0.0-0.4 X10*3/uL Basophils Absolute Auto 0.1 0.0-0.2 X10*3/uL NRBC [...] 0.0-0.2 /100WBC Neutrophils Absolute Auto 9.1 2.0-8.3 x10*3/uL Imm Gran Abs Auto 0.05 0.00-0.03 X10*3/uL Lymphocytes Absolute Auto 1.4 1.2-4.9 X10*3/uL Monocytes Absolute Auto 0.9 0.1-1.2 X10*3/uL Eosinophils Absolute Auto 2.0 0.0-0.4 X10*3/uL Basophils Absolute Auto 0.1 0.0-0.2 X10*3/uL NRBC Abs Auto 0.000 0.0-0.012 X10*3/uL CO RRECTED REPORT CO RRECTED REPORT Complete Blood Count Auto Di ff Reviewed date:01/05/2025 10:43:04 AM Interpretation:01-05-2025 Performing Lab:[facility], [address] [place] [phone] Notes/Report: White Blood Count 12.3 4.8-10.8 X10*3/uL [...] 0.0-0.2 /100WBC Neutrophils Absolute Auto 8.5 2.0-8.3 x10*3/uL Imm Gran Abs Auto 0.05 0.00-0.03 X10*3/uL Lymphocytes Absolute Auto 1.0 1.2-4.9 X10*3/uL Monocytes Absolute Auto 1.0 0.1-1.2 X10*3/uL Eosinophils Absolute Auto 1.6 0.0-0.4 X10*3/uL Basophils Absolute Auto 0.1 0.0-0.2 X10*3/uL NRBC Abs Auto 0.000 0.0-0.012 X10*3/uL CO RRECTED REPORT IRON PROFILE Reviewed date:12/30/2024 07:04:37 PM Interpretation: Performing Lab:[facility], [address] [place] [phone] Notes/Report: Iron 32 45-160 mcg/dL Total Iron Binding Capacity 239 228-428 mcg/dL Percent Iron Saturation 13 15-50 % Unsaturated Iron Binding 207 Glucose, finger stick Reviewed date:04/13/2025 01:29:06 PM Interpretation: Performing Lab: Notes/Report: Value 127 Complete Blood Count Auto Di ff Reviewed date:09/28/2024 02:00:33 PM Interpretation: Performing Lab:[facility], [address] [place] [phone] Notes/Report: White Blood Count 13.7 4.8-10.8 X10*3/uL Red Blood Count 4.36 4.60-5.80 X10*6/uL Hemoglobin 8.0 14.0-18.0 g/dl Hematocrit 28.6 42.0-52.0 % Mean Corpuscular Volume 65.6 80.0-98.0 fL Mean Corpuscular Hemoglobin 18.3 27.0-33.0 pg Mean Corpuscular HGB Conc 28.0 31.0-36.0 g/dl Red Cell Distribution Width 22.6 11.0-16.0 % Platelet Count 312 160-400 X10*3/uL Mean Platelet Volume 9.7 9.4-12.4 fL Neutrophils Percent Auto 73.2 45-73 % Imm Gran Pct Auto 0.4 0.0-0.4 % Lymphocytes Percent Auto 5.5 20-40 % Monocytes Percent Auto 8.5 2-11 % Eosinophils Percent Auto 11.7 0-4 % Basophils Percent Auto 0.7 0-2 % NRBC Pct Auto 0.0 0.0-0.2 /100WBC Neutrophils Absolute Auto 10.0 2.0-8.3 x10*3/uL Imm Gran Abs Auto 0.05 0.00-0.03 X10*3/uL Lymphocytes Absolute Auto 0.8 1.2-4.9 X10*3/uL Monocytes Absolute Auto 1.2 0.1-1.2 X10*3/uL Eosinophils Absolute Auto 1.6 0.0-0.4 X10*3/uL Basophils Absolute Auto 0.1 0.0-0.2 X10*3/uL NRBC Abs Auto 0.000 0.0-0.012 X10*3/uL Prothrombin Time INR Reviewed date:09/28/2024 01:59:39 PM Interpretation: Performing Lab:[facility], [address] [place] [phone] Notes/Report: Prothrombin Time 19.7 10.9-12.4 SEC INTERNATIONAL NORM RATIO 1.7 0.9-1.1 INTERNATIONAL NORMALIZED RATIO (INR) REFERENCE RANGES Reference Range For patients not on anticoagulant therapy: 0.9 - 1.1 INR ranges for oral anticoagulant therapy: For prevention and treatment of venous thrombosis and pulmonary embolism: 2.0 - 3.0 For acute myocardial infarction with aspirin therapy: 2.0 - 3.0 For acute myocardial infarction without aspirin therapy: 3.0 - 4.0 For patients with mechanical prosthetic heart valves: 2.5 - 3.5 Partial Thromboplastin Time Reviewed date:09/28/2024 01:58:51 PM Interpretation: Performing Lab:[facility], [address] [place] [phone] Notes/Report: Partial Thromboplastin Time 36.9 26.0-36.8 SEC For information regarding the monitoring of direct thrombin inhibitors, please refer to Pharmacy. Comprehensive Met. Panel Reviewed date:09/29/2024 09:58:07 AM Interpretation: Performing Lab:[facility], [address] [place] [phone] Notes/Report: Sodium 138 135-145 mmol/L Potassium 4.5 3.3-5.1 mmol/L Slight Hemolysis.Interpret result with caution. Chloride 108 96-108 mmol/L Carbon Dioxide 22 22-29 mmol/L Anion Gap 13 12-20 Blood Urea Nitrogen 28 9-16 mg/dL Creatinine 1.35 0.5-1.4 mg/dL Creatinine Clr Calc Pharmacy 32.7 eGFR (calculated from the MDRD study equation) and eCrCl (calculated from the Cockcroft-Gault equation) are based on different parameters and may not yield comparable results. If eCrCl result is absurd, please check patient's height/weight. Estimated Glomerular Filt Rate 50 Chronic Kidney Disease: Estimated GFR < 60 mL/min/1.73m2 Severe Kidney Disease: Estimated GFR < 15 mL/min/1.73m2 Glucose Random 87 60-115 mg/dL Calcium 8.7 8.4-10.2 mg/dL Bilirubin Total 0.5 0.0-1.0 mg/dL Aspartate Amino Transferase 65 5-37 U/L Slight Hemolysis.Interpret result with caution. Alanine Aminotransferase 36 0-40 U/L Total Protein 6.6 6.5-8.0 g/dL Albumin Level 3.7 3.5-5.0 g/dL Alkaline Phosphatase 71 39-117 U/L Lactic Acid Reviewed date:09/29/2024 08:20:58 AM Interpretation: Performing Lab:[facility], [address] [place] [phone] Notes/Report: Lactic Acid 1.0 0.5-2.0 mmol/L Creatine Kinase Total Reviewed date:09/29/2024 08:26:36 AM Interpretation: Performing Lab:[facility], [address] [place] [phone] Notes/Report: Creatine Kinase Total 297 38-174 U/L Troponin-I High Sensitivity Reviewed date:09/28/2024 01:59:47 PM Interpretation: Performing Lab:[facility], [address] [place] [phone] Notes/Report: Troponin-I High Sensitivity 19.8 <3.5-35.0 ng/L The Rose high sensitivity Troponin-I results should be used in conjunction with other diagnostic information such as ECG, clinical observations and information, and patient symptoms to aid in the diagnosis of WI. B Type Natriuretic Peptide Reviewed date:09/28/2024 01:59:25 PM Interpretation: Performing Lab:[facility], [address] [place] [phone] Notes/Report: B Type Natriuretic Peptide 365 <100 pg/mL For those patients who are being treated with Natrecor (nesiritide, recombinant BNP), BNP testing should be performed at least two hours post treatment in order to ensure that only endogenous levels of BNP are detected. Procalcitonin Reviewed date:09/29/2024 08:24:26 AM Interpretation: Performing Lab:[facility], [address] [place] [phone] Notes/Report: Procalcitonin 0.06 Procalcitonin (PCT) Reference Range: PCT greater than 2.0 ng/mL: A PCT level above 2.0 ng/mL on the first day of ICU admission is associated with a high risk for progression to severe sepsis and/or septic shock. PCT less than 0.5 ng/mL: A PCT level below 0.5 ng/mL on the first day of ICU admission is associated with a low risk for progression to severe sepsis and/or septic shock. PCT levels below 0.5 ng/mL do not exclude an infection. Care must be taken in interpreting PCT results from different laboratories and methodologies. References: [place] [employer]/Society of Critical Care Medicine Consensus Conference Committee. Definitions for sepsis and organ failure and guidelines for the use of innovative therapies in sepsis. Crit Care Med 1992;20(6):864-874. Sadi Richardson, Niurka BUENROSTRO, Cecilio H, et al. Calcitonin precursors are reliable markers of sepsis in a medical intensive care unit. Crit Care Med 2000;363:600-607. Marcelo S, Federico K, Flora Bain, et al. Diagnostic value of procalcitonin, interleukin-6 and interleukin-8 in critically ill patients admitted with suspected sepsis. AM J Respir Crit Care Med 2001;164:396-402. US Food and Drug Administration. 510(k) substantial equivalence determination decision summary for [facility]. http://www.accessdat a.fda.fov/cdrh_docs/ reviews/G381554.pdf. Published October 2004. Accessed March 2017. Ethanol Reviewed date:09/29/2024 08:19:27 AM Interpretation: Performing Lab:[facility], [address] [place] [phone] Notes/Report: Ethanol < 10 Serum/plasma ethanol results are to be used for medical/treatment purposes only. SARS-CoV2/FLU/RSV Reviewed date:09/28/2024 01:58:43 PM Interpretation: Performing Lab:[facility], [address] [place] [phone] Notes/Report: Influenza A PCR NEGATIVE Negative Influenza B PCR NEGATIVE Negative Resp Syncy Virus RNA Qual PCR NEGATIVE Negative SARS COV2 PCR INHOUSE NEGATIVE Negative All test results must be correlated with clinical findings. Negative results do not preclude SARS-CoV2, influenza A virus, influenza B virus and/or RSV infection and should not be used as the sole basis for treatment or other patient management decisions. Negative results must be combined with clinical observations, patient history, and epidemiological information. This test has not been evaluated for monitoring treatment of infection. This test has been authorized by the FDA under an Emergency Use Authorization (EUA) for use by authorized laboratories. Testing performed on the [employer] GeneXpert utilizing real-time RT-PCR. All SARS CoV2 and positive influenza A/B results are reported to [facility]. Blood Culture (First) Reviewed date:10/04/2024 02:18:00 PM Interpretation: Performing Lab:[facility], [address] [place] [phone] Notes/Report: Blood Culture (First) No growth after 5 days. Blood Culture (Second) Reviewed date:10/04/2024 02:17:51 PM Interpretation: Performing Lab:[address] [phone] Notes/Report: Blood Culture (Second) No growth after 5 days. Venous Blood Gases - POC Reviewed date:09/28/2024 04:46:06 PM Interpretation: Performing Lab:[address] [phone] Notes/Report: VBG pH 7.38 7.32-7.43 METER #: [id number] additional_comment: CbPatelha VBG pCO2 44 METER #: [id number] additional_comment: CbPatelha VBG pO2 44 METER #: [id number] additional_comment: CbPatelha VBG Base Excess 1.8 METER #: [id number] additional_comment: CbPatelha VBG HCO3 27 22-26 mmol/L METER #: [id number] additional_comment: CbPatelha VBG O2 % Saturation 63.0 METER #: [id number] additional_comment: CbPatel CT angio chest PE protocol Reviewed date:09/29/2024 08:20:18 AM Interpretation: Performing Lab: Notes/Report: [address] [address] [address] Scan Report Signed Patient: Too Young MR#: [id number] : 1935 Acct:[id number] Age/Sex: 89 / M ADM Date: 09/28/24 Loc: .ED Attending Dr: Ordering Physician: Blessing Murphy DO Date of Service: 09/28/24 Procedure(s): CT angio chest PE protocol Accession Number(s): [id number] cc: Chico Bojorquez MD; Blessing Murphy DO EXAMINATION: CT ANGIOGRAM OF THE CHEST WITH AND WITHOUT CONTRAST (CT PULMONARY ANGIOGRAM FOR PE) CLINICAL INFORMATION: hypoxia syncope suspicion for PE COMPARISON: CT chest July 10 2024 TECHNIQUE: Prior to contrast administration, noncontrast localization images were obtained. Subsequently, multidetector volumetric imaging was performed from the thoracic inlet to below the diaphragms following the administration of 65 mL Omnipaque 350 intravenous contrast. No contrast reaction reported. Sagittal, coronal, and MIP oblique sagittal reformatted images were obtained on the CT workstation, uploaded to PACS, and reviewed. Total exam dose-length product 274 mGy-cm FINDINGS: QUALITY OF STUDY/CONTRAST BOLUS: Satisfactory. PULMONARY ARTERIES: No central or segmental pulmonary emboli. THORACIC AORTA: No aneurysm or dissection. LUNG: No focal consolidation. Nearly resolved right lower lobe masslike consolidation, compared to July 10, 2024. Stable areas of pleural-parenchymal scarring. MEDIASTINUM: Normal heart size. No pericardial effusion. No hilar or mediastinal lymphadenopathy. No evidence of septal bowing or right heart strain. CHEST WALL/AXILLA: No axillary or internal mammary lymphadenopathy. OSSEOUS STRUCTURES: Status post left shoulder arthroplasty. Multilevel degenerative changes of the thoracic spine. UPPER ABDOMEN: Unremarkable. CT/CT angio chest PE protocol IMPRESSION: 1. No central or segmental pulmonary emboli. VTE: negative. Electronically signed by: Spencer Layne MD 09/28/2024 08:21 PM [facility] Dictated By: Spencer Layne MD Signed By: <Electronically signed by Spencer Layne MD in OV> 09/28/242020 DD/ 1635 TD/TT: 09/28/24 1747 [address] Doughnut: [address] [address] [address] Scan Report Signed Patient: Ortega Young MR#: [id number] : 1935 Acct:[id number] Age/Sex: 89 / M ADM Date: 09/28/24 Loc: .ED Attending Dr: Ordering Physician: Blessing Murphy DO Date of Service: 09/28/24 Procedure(s): CT ang io chest PE protocol Accession Number(s): [id number] cc: Chico Bojorquez MD; Blessing Mruphy DO EXAMINATION: CT ANGIOGRAM OF THE CHEST WITH AND WITHOUT CONTRAST (CT PULMONARY ANGIOGRAM FOR PE) CLINICAL INFORMATION: hypoxia syncope suspicion for PE COMPARISON: CT chest June 222023 TECHNIQUE: Prior to contrast administration, noncontrast localization images were obtained. Subsequent ly, multidetector volumetric imaging was performed from the thoracic inlet to below the diaphragms following the administration of 65 mL Omnipaque 350 intravenous contrast. No contrast reaction reported. Sagittal, coronal, a nd MIP oblique sagittal reformatted images were obtained on the CT workstation, uploaded to PACS, and reviewed. Total exam dose-paula th product 274 mGy-cm FINDINGS: QUALITY OF STUDY/CONTRAST BOLUS: Satisfactory. PULMONARY ARTERIES: No central or segmental pulmonary emboli. THORACIC AORTA: No aneurysm or dissection. LUNG: No focal consolidation. Nearly resolved right lower lobe masslike consolidation, violet red to July 10, 2024. Stable areas of pleural-parenchymal scarring. MEDIASTINUM: Normal heart size. No pericardial effusion. No hilar or mediastinal lymphadenopathy. No evidence of septal bowing or right heart strain. CHEST WALL/AXILLA: N o axillary or internal mammary lymphadenopathy. OSSEOUS STRUCTURES: Status post left shoulder arthroplasty. Multilevel degenerative changes of the thoracic spine. UPPER ABDOMEN: Unremarkable. C T/CT angio chest PE protocol IMPRESSION: 1. No central or segmental pulmonary emboli. VTE: negative. Electronically yolanda d by: Spencer Layne MD 09/28/2024 08:21 PM [facility] Dictated By: Spencer Layne MD Signed By: <Electronically signed by Spencer Layne MD in OV> 09/28/242020 DD/ 1635 TD/TT: 09/28/24 174 [address]nut: CT cervical spine wo con Reviewed date:09/29/2024 08:26:22 AM Interpretation: Performing Lab: Notes/Report: [address] [address] [address] Scan Report Signed Patient: Too Young MR#: [id number] : 1935 Acct:[id number] Age/Sex: 89 / M ADM Date: 09/28/24 Loc: HO.ED Attending Dr: Ordering Physician: Daniel Willett Date of Service: 09/28/24 Procedure(s): CT cervical spine wo IV con Accession Number(s): [id number] cc: Daniel Willett; Chico Bojorquez MD EXAMINATION: CT HEAD WITHOUT CONTRAST CT CERVICAL SPINE WITHOUT CONTRAST CLINICAL INFORMATION: Fall. COMPARISON: CT head dated 10/10/2023. Chest CT done earlier the same day. TECHNIQUE: Contiguous axial imaging was performed from the skull base to vertex without intravenous administration of contrast. Contiguous axial CT images of the cervical spine were obtained without contrast. Sagittal and coronal reformats were provided and reviewed. This CT examination was performed using dose optimization techniques as appropriate, variously including the following: *Automated exposure control *Adjustment of mA and/or kV according to patient size (this includes techniques or standardized protocols for targeted exams where dose is matched to indication/reason for exam; i.e. extremities or head) *Use of iterative reconstruction technique DLP: 1116 mGy-cm FINDINGS: HEAD: There is no evidence of acute intracranial hemorrhage or territorial infarction. No abnormal mass effect or midline shift is seen. Saldivar to white matter differentiation is well preserved. No extra-axial fluid collections are identified. Prominence of the ventricles and sulci, increased when compared to the prior examination and consistent with diffuse atrophy. Hypoattenuation of the periventricular white matter is redemonstrated, consistent with chronic microvascular ischemic disease. The osseous structures and soft tissues are normal. Partial opacification of the ethmoid air cells with mucoperiosteal thickening in the left maxillary sinus where there is an air-fluid level. Findings could represent a degree of acute sinusitis. Otherwise, the mastoid air cells and visualized portions of the paranasal sinuses are well aerated. CERVICAL SPINE: The cervical lordosis is maintained. Grade 1 anterolisthesis of C4 on C5. Bony fusion of the C5 and C6 vertebral bodies. No acute fracture or subluxation. No loss of vertebral body height. Multilevel loss of intervertebral disc height with degenerative endplate changes, most severe at C6-C7. Prominent multilevel bilateral facet arthropathy. No lytic or blastic osseous lesion. Unremarkable prevertebral soft tissues. No abnormal soft tissue mass or fluid collection. Thyroid within normal limits. Partially visualized pleural calcifications within the lung apices as seen on the prior chest CT. Kzeo-fx-mzihmrwh multilevel bilateral neural foraminal stenosis. CT/CT cervical spine wo IV con IMPRESSION: HEAD: No acute intracranial hemorrhage or mass effect. Diffuse atrophy and chronic microvascular ischemic disease, increased when compared to the prior examination. CERVICAL SPINE: No acute fracture or subluxation. Grade 1 anterolisthesis of C4 on C5. Bony fusion of the C5 and C6 vertebral bodies. Multilevel degenerative disc disease and bilateral facet arthropathy with ajzl-vq-mjiljuhb multilevel bilateral neural foraminal stenosis. Electronically signed by: Davon De Leon MD 09/28/2024 04:50 PM [facility] Dictated By: Davon De Leon MD Signed By: <Electronically signed by Davon De Leon MD in OV> 09/28/24 1650 DD/ 1352 TD/TT: 09/28/24 1418 Baker Doughnut: [address] [address] [address] Scan Report Signed Patient: Ortega Young MR#: [id number] : 1935 Acct:[id number] Age/Sex: 89 / M ADM Date: 09/28/24 Loc: HO.ED Attending Dr: Ordering Physician: Daniel Willett Date of Service: 09/28/24 Procedure(s): CT cervical spine wo IV con Accession Number(s): [id number] cc: Daniel Willett; Chico Bojorquez MD EXAMINATION: CT HEAD WITHOUT CONTRAST CT CERVICAL SPINE WITHOUT CONTRAST CLINICAL INFORMATION: Fall. COMPARISON: CT head dated 10/10/2023. Chest CT done earlier the same day. TECHNIQUE: Contiguous axial roderick ging was performed from the skull base to vertex without intravenous administration of contrast. Contiguous axial CT images of the cervic al spine were obtained without contrast. Sagittal and coronal reformat s were provided and reviewed. This CT examination was performed using dose optimization techniques as appropriate, various ly including the following: *Automated exposure control *Adjustment of mA an d/or kV according to patient size (this includes techniques or standardized protocols for targeted exams where dose is matched to indication/reason for exam; i.e. extremities or head) *Use of iterative reconstruction technique DLP: 1116 mGy-cm FINDINGS: HEAD: There is no evidence of acute intracranial hemorrhage or territorial infarction. No abnor mal mass effect or midline shift is seen. Saldivar to white matter differentiation is well preserved. No extra-axial fluid collections are identified. Prominence of the ventricles and sulci, increased when compared to the prior examination an d consistent with diffuse atrophy. Hypoattenuation of the periventricul ar white matter is redemonstrated, consistent with chronic microvascula r ischemic disease. The osseous structur es and soft tissues are normal. Partial opacification of the ethmoid air cells with mucoperiosteal thickening in the left maxillar y sinus where there is an air-fluid level. Findings could represent a de gree of acute sinusitis. Otherwise, the mastoid air cells and visualized portions of the paranasal sinuses are well aerated. CERVICAL SPINE: The cervical lordosi s is maintained. Grade 1 anterolisthesis of C4 on C5. Bony fusion of t he C5 and C6 vertebral bodies. No acute fracture or subluxation. No loss of vertebral body height. Multilevel loss of intervertebral disc height with degenerative endplate changes, most severe at C6-C7. Prominent multilevel bilateral facet arthropathy. No lytic or blastic oss eous lesion. Unremarkable prevertebral soft tissues. No abnormal soft tissue mass or fluid collection. Thyroid within normal limits. Partially visualized pleural calcificatio ns within the lung apices as seen on the prior chest CT. Xaln-pj-[id number] multilevel bilateral neural foraminal stenosis. C T/CT cervical spine wo IV con IMPRESSION: HEAD: No acute intracrania l hemorrhage or mass effect. Diffuse atrophy and chronic microvascula r ischemic disease, increased when compared to the prior examination. CERVICAL SPINE: No acute fracture or subluxation. Grade 1 anterolisthesis of C4 on C5. Bony fusion of the C 5 and C6 vertebral bodies. Multilevel degenerative disc disease and bilateral facet arthropathy with aonw-ez-tztzqbia multilevel bilateral neural foraminal stenosis. Electronically yolanda d by: Davon De Leon MD 09/28/2024 04:50 PM [facility] Dictated By: Davon De Leon MD Signed By: <Electronically signed by Davon De Leon MD in OV> 09/28/24 1650 DD/ 1352 TD/TT: 09/28/24 1418 Baker Doughnut: SR CT chest wo con Reviewed date:09/29/2024 09:59:05 AM Interpretation: Performing Lab: Notes/Report: [address] [address] [address] Scan Report Signed Patient: Too Young MR#: [id number] : 1935 Acct:[id number] Age/Sex: 89 / M ADM Date: 09/28/24 Loc: HO.ED Attending Dr: Ordering Physician: Daniel Willett Date of Service: 09/28/24 Procedure(s): CT chest wo IV con Accession Number(s): [id number] cc: Daniel Willett; Chico Bojorquez MD EXAMINATION: CT CHEST, ABDOMEN AND PELVIS WITHOUT CONTRAST CLINICAL INFORMATION: Fall COMPARISON: CT chest July 10, 2024, CT abdomen and pelvis September 13, 2023 TECHNIQUE: Multidetector volumetric CT imaging of the chest, abdomen and pelvis was obtained. Axial MIP volume rendering provided. Sagittal and coronal reformatted images were obtained. This CT examination was performed using dose optimization techniques as appropriate, variously including the following: *Automated exposure control *Adjustment of mA and/or kV according to patient size (this includes techniques or standardized protocols for targeted exams where dose is matched to indication/reason for exam; i.e. extremities or head) *Use of iterative reconstruction technique DLP: 790 mGy-cm FINDINGS: LUNGS: Moderate centrilobular emphysema. No pneumothorax. No hemopneumothorax. Peripheral areas of pleural-parenchymal scarring. MEDIASTINUM: The heart is not enlarged. There is no pericardial effusion or pericardial thickening. Aorta and pulmonary arteries are not dilated. There are no pathologically enlarged mediastinal or hilar lymph nodes. AXILLA: No lymphadenopathy. LIVER, GALLBLADDER, AND BILIARY TREE: The liver is normal in size, shape, and attenuation. There are no focal hepatic lesions. There is no intra or extrahepatic bile duct dilation. The gallbladder is unremarkable with no evidence of radiopaque gallstones, gallbladder wall thickening, or obvious pericholecystic inflammatory changes. PANCREAS: Unremarkable SPLEEN: Unremarkable ADRENAL GLANDS: Unremarkable KIDNEYS AND URETERS: The kidneys are normal in size. 3 mm stones in the right upper pole. No hydronephrosis. BLADDER: Unremarkable GASTROINTESTINAL TRACT: The large and small bowel are normal in caliber. Moderate stool burden. ABDOMINAL WALL: No significant hernia is appreciated. LYMPH NODES: Normal PERITONEUM: No free intraperitoneal fluid or air. 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 Extensive atherosclerotic calcification PELVIC VISCERA: Unremarkable OSSEOUS STRUCTURES: Multilevel degenerative changes of the lumbar spine. CT/CT chest wo IV con IMPRESSION: 1. No acute traumatic findings in the chest, abdomen, or pelvis. 2. Moderate centrilobular emphysema. 3. 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 Electronically signed by: Spencer Layne MD 09/28/2024 03:39 PM [facility] Dictated By: Spencer Layne MD Signed By: <Electronically signed by Spencer Layne MD in OV> 09/28/24 1539 DD/ 1241 TD/TT: 09/28/24 1419 [address]: [place] [address] CT Scan Report Signed Patient: Ortega Young MR#: [id number] : 1935 Acct:[id number] Age/Sex: 89 / M ADM Date: 09/28/24 Loc: .ED Attending Dr: Ordering Physician: Daniel Willett Date of Service: 09/28/24 Procedure(s): CT shadi st wo IV con Accession Number(s): [id number] cc: Daniel Willett; Chico Bojorquez MD EXAMINATION: CT CHEST, ABDOMEN AN D PELVIS WITHOUT CONTRAST CLINICAL INFORMATION: Fall COMPARISON: CT chest June 222023, CT abdomen and pelvis September 13, 2023 TECHNIQUE: Multidetector volume tric CT imaging of the chest, abdomen and pelvis was obtained. Axial MIP volume rendering provided. Sagittal and coronal reformatted images w ere obtained. This CT examination was performed using dose optimization techniques as appropriate, various ly including the following: *Automated exposure control *Adjustment of mA an d/or kV according to patient size (this includes techniques or standardized protocols for targeted exams where dose is matched to indication/reason for exam; i.e. extremities or head) *Use of iterative reconstruction technique DLP: 790 mGy-cm FINDINGS: LUNGS: Moderate centrilobular emphysema. No pneumothorax. No hemopneumothorax. Peripheral areas of pleural-parenchymal scarring. MEDIASTINUM: The hea rt is not enlarged. There is no pericardial effusion or pericard ial thickening. Aorta and pulmonary arteries are not dilated. There a re no pathologically enlarged mediastinal or hilar lymph nodes. AXILLA: No lymphadenopathy. LIVER, GALLBLADDER, AND BILIARY TREE: The liver is normal in size, shape, and attenuati on. There are no focal hepatic lesions. There is no intra or extrahepati c bile duct dilation. The gallbladder is unremarkable with no evidence of radiopaque gallstones, gallbladder wall thickening, or obvious pericholecystic inflammatory changes. PANCREAS: Unremarkable SPLEEN: Unremarkable ADRENAL GLANDS: Unremarkable KIDNEYS AND URETERS: The kidneys are normal in size. 3 mm stones in the right upper pole. No hydronephrosis. BLADDER: Unremarkable GASTROINTESTINAL TRA CT: The large and small bowel are normal in caliber. Moderate st ool burden. ABDOMINAL WALL: No significant hernia is appreciated. LYMPH NODES: Normal PERITONEUM: No free intraperitoneal fluid or air. 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 Extensive atherosclerotic calcification PELVIC VISCERA: Unremarkable OSSEOUS STRUCTURES: Multilevel degenerative changes of the lumbar spine. C T/CT chest wo IV con IMPRESSION: 1. No acute traumati c findings in the chest, abdomen, or pelvis. 2. Moderate centrilobular emphysema. 3. 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 Electronically yolanda d by: Spencer Layne MD 09/28/2024 03:39 PM [facility] Dictated By: Spencer Layne MD Signed By: <Electronically signed by Spencer Layne MD in OV> 09/28/24 1539 DD/ 1241 TD/TT: 09/28/24 1419 [address]: CT head/brain wo con Reviewed date:09/28/2024 05:00:22 PM Interpretation: Performing Lab: Notes/Report: [address] [address] [address] Scan Report Signed Patient: Too Young MR#: [id number] : 1935 Acct:[id number] Age/Sex: 89 / M ADM Date: 09/28/24 Loc: HO.ED Attending Dr: Ordering Physician: Daniel Willett Date of Service: 09/28/24 Procedure(s): CT head/brain wo IV con Accession Number(s): [id number] cc: Daniel Willett; Chico Bojorquez MD EXAMINATION: CT HEAD WITHOUT CONTRAST CT CERVICAL SPINE WITHOUT CONTRAST CLINICAL INFORMATION: Fall. COMPARISON: CT head dated 10/10/2023. Chest CT done earlier the same day. TECHNIQUE: Contiguous axial imaging was performed from the skull base to vertex without intravenous administration of contrast. Contiguous axial CT images of the cervical spine were obtained without contrast. Sagittal and coronal reformats were provided and reviewed. This CT examination was performed using dose optimization techniques as appropriate, variously including the following: *Automated exposure control *Adjustment of mA and/or kV according to patient size (this includes techniques or standardized protocols for targeted exams where dose is matched to indication/reason for exam; i.e. extremities or head) *Use of iterative reconstruction technique DLP: 1116 mGy-cm FINDINGS: HEAD: There is no evidence of acute intracranial hemorrhage or territorial infarction. No abnormal mass effect or midline shift is seen. Saldivar to white matter differentiation is well preserved. No extra-axial fluid collections are identified. Prominence of the ventricles and sulci, increased when compared to the prior examination and consistent with diffuse atrophy. Hypoattenuation of the periventricular white matter is redemonstrated, consistent with chronic microvascular ischemic disease. The osseous structures and soft tissues are normal. Partial opacification of the ethmoid air cells with mucoperiosteal thickening in the left maxillary sinus where there is an air-fluid level. Findings could represent a degree of acute sinusitis. Otherwise, the mastoid air cells and visualized portions of the paranasal sinuses are well aerated. CERVICAL SPINE: The cervical lordosis is maintained. Grade 1 anterolisthesis of C4 on C5. Bony fusion of the C5 and C6 vertebral bodies. No acute fracture or subluxation. No loss of vertebral body height. Multilevel loss of intervertebral disc height with degenerative endplate changes, most severe at C6-C7. Prominent multilevel bilateral facet arthropathy. No lytic or blastic osseous lesion. Unremarkable prevertebral soft tissues. No abnormal soft tissue mass or fluid collection. Thyroid within normal limits. Partially visualized pleural calcifications within the lung apices as seen on the prior chest CT. Cxmj-da-bamhiteb multilevel bilateral neural foraminal stenosis. CT/CT head/brain wo IV con IMPRESSION: HEAD: No acute intracranial hemorrhage or mass effect. Diffuse atrophy and chronic microvascular ischemic disease, increased when compared to the prior examination. CERVICAL SPINE: No acute fracture or subluxation. Grade 1 anterolisthesis of C4 on C5. Bony fusion of the C5 and C6 vertebral bodies. Multilevel degenerative disc disease and bilateral facet arthropathy with [id number] multilevel bilateral neural foraminal stenosis. Electronically signed by: Davon De Leon MD 09/28/2024 04:50 PM [facility] Dictated By: Davon De Leon MD Signed By: <Electronically signed by Davon De Leon MD in OV> 09/28/24 1650 DD/ 1241 TD/TT: 09/28/24 1418 [address]: [place] [address] CT Scan Report Signed Patient: Ortega Young MR#: [id number] : 1935 Acct:[id number] Age/Sex: 89 / M ADM Date: 09/28/24 Loc: .ED Attending Dr: Ordering Physician: Daniel Willett Date of Service: 09/28/24 Procedure(s): CT head/brain wo IV con Accession Number(s): [id number] cc: Daniel Willett; Chico Bojorquez MD EXAMINATION: CT HEAD WITHOUT CONTRAST CT CERVICAL SPINE WITHOUT CONTRAST CLINICAL INFORMATION: Fall. COMPARISON: CT head dated 10/10/2023. Chest CT done earlier the same day. TECHNIQUE: Contiguous axial roderick ging was performed from the skull base to vertex without intravenous administration of contrast. Contiguous axial CT images of the cervic al spine were obtained without contrast. Sagittal and coronal reformat s were provided and reviewed. This CT examination was performed using dose optimization techniques as appropriate, various ly including the following: *Automated exposure control *Adjustment of mA an d/or kV according to patient size (this includes techniques or standardized protocols for targeted exams where dose is matched to indication/reason for exam; i.e. extremities or head) *Use of iterative reconstruction technique DLP: 1116 mGy-cm FINDINGS: HEAD: There is no evidence of acute intracranial hemorrhage or territorial infarction. No abnor mal mass effect or midline shift is seen. Saldivar to white matter differentiation is well preserved. No extra-axial fluid collections are identified. Prominence of the ventricles and sulci, increased when compared to the prior examination an d consistent with diffuse atrophy. Hypoattenuation of the periventricul ar white matter is redemonstrated, consistent with chronic microvascula r ischemic disease. The osseous structur es and soft tissues are normal. Partial opacification of the ethmoid air cells with mucoperiosteal thickening in the left maxillar y sinus where there is an air-fluid level. Findings could represent a de gree of acute sinusitis. Otherwise, the mastoid air cells and visualized portions of the paranasal sinuses are well aerated. CERVICAL SPINE: The cervical lordosi s is maintained. Grade 1 anterolisthesis of C4 on C5. Bony fusion of t he C5 and C6 vertebral bodies. No acute fracture or subluxation. No loss of vertebral body height. Multilevel loss of intervertebral disc height with degenerative endplate changes, most severe at C6-C7. Prominent multilevel bilateral facet arthropathy. No lytic or blastic oss eous lesion. Unremarkable prevertebral soft tissues. No abnormal soft tissue mass or fluid collection. Thyroid within normal limits. Partially visualized pleural calcificatio ns within the lung apices as seen on the prior chest CT. Bptv-wu-neoxcgyn multilevel bilateral neural foraminal stenosis. C T/CT head/brain wo IV con IMPRESSION: HEAD: No acute intracrania l hemorrhage or mass effect. Diffuse atrophy and chronic microvascula r ischemic disease, increased when compared to the prior examination. CERVICAL SPINE: No acute fracture or subluxation. Grade 1 anterolisthesis of C4 on C5. Bony fusion of the C 5 and C6 vertebral bodies. Multilevel degenerative disc disease and bilateral facet arthropathy with odlb-bt-qwrrdcth multilevel bilateral neural foraminal stenosis. Electronically yolanda d by: Davon De Leon MD 09/28/2024 04:50 PM [facility] Dictated By: Davon De Leon MD Signed By: <Electronically signed by Davon De Leon MD in OV> 09/28/24 1650 DD/ 1241 TD/TT: 09/28/24 1418 [address]: CT abdomen pelvis wo con Reviewed date:09/28/2024 04:58:29 PM Interpretation: Performing Lab: Notes/Report: [address] [address] [address] Scan Report Signed Patient: Too Young MR#: [id number] : 1935 Acct:[id number] Age/Sex: 89 / M ADM Date: 09/28/24 Loc: .ED Attending Dr: Ordering Physician: Daniel Willett Date of Service: 09/28/24 Procedure(s): CT abdomen pelvis wo IV con Accession Number(s): [id number] cc: Daniel Willett; Chico Bojorquez MD EXAMINATION: CT CHEST, ABDOMEN AND PELVIS WITHOUT CONTRAST CLINICAL INFORMATION: Fall COMPARISON: CT chest July 10, 2024, CT abdomen and pelvis September 13, 2023 TECHNIQUE: Multidetector volumetric CT imaging of the chest, abdomen and pelvis was obtained. Axial MIP volume rendering provided. Sagittal and coronal reformatted images were obtained. This CT examination was performed using dose optimization techniques as appropriate, variously including the following: *Automated exposure control *Adjustment of mA and/or kV according to patient size (this includes techniques or standardized protocols for targeted exams where dose is matched to indication/reason for exam; i.e. extremities or head) *Use of iterative reconstruction technique DLP: 790 mGy-cm FINDINGS: LUNGS: Moderate centrilobular emphysema. No pneumothorax. No hemopneumothorax. Peripheral areas of pleural-parenchymal scarring. MEDIASTINUM: The heart is not enlarged. There is no pericardial effusion or pericardial thickening. Aorta and pulmonary arteries are not dilated. There are no pathologically enlarged mediastinal or hilar lymph nodes. AXILLA: No lymphadenopathy. LIVER, GALLBLADDER, AND BILIARY TREE: The liver is normal in size, shape, and attenuation. There are no focal hepatic lesions. There is no intra or extrahepatic bile duct dilation. The gallbladder is unremarkable with no evidence of radiopaque gallstones, gallbladder wall thickening, or obvious pericholecystic inflammatory changes. PANCREAS: Unremarkable SPLEEN: Unremarkable ADRENAL GLANDS: Unremarkable KIDNEYS AND URETERS: The kidneys are normal in size. 3 mm stones in the right upper pole. No hydronephrosis. BLADDER: Unremarkable GASTROINTESTINAL TRACT: The large and small bowel are normal in caliber. Moderate stool burden. ABDOMINAL WALL: No significant hernia is appreciated. LYMPH NODES: Normal PERITONEUM: No free intraperitoneal fluid or air. 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 Extensive atherosclerotic calcification PELVIC VISCERA: Unremarkable OSSEOUS STRUCTURES: Multilevel degenerative changes of the lumbar spine. CT/CT abdomen pelvis wo IV con IMPRESSION: 1. No acute traumatic findings in the chest, abdomen, or pelvis. 2. Moderate centrilobular emphysema. 3. 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 Electronically signed by: Spencer Layne MD 09/28/2024 03:39 PM [facility] Dictated By: Spencer Layne MD Signed By: <Electronically signed by Spencer Layne MD in OV> 09/28/24 1539 DD/ 1419 TD/TT: 09/28/24 1419 [address]: [place] [address] CT Scan Report Signed Patient: Ortega Young MR#: [id number] : 1935 Acct:[id number] Age/Sex: 89 / M ADM Date: 09/28/24 Loc: HO.ED Attending Dr: Ordering Physician: Daniel Willett Date of Service: 09/28/24 Procedure(s): CT abd omen pelvis wo IV con Accession Number(s): [id number] cc: Daniel Willett; Chico Bojorquez MD EXAMINATION: CT CHEST, ABDOMEN AN D PELVIS WITHOUT CONTRAST CLINICAL INFORMATION: Fall COMPARISON: CT chest June 222023, CT abdomen and pelvis September 13, 2023 TECHNIQUE: Multidetector volume tric CT imaging of the chest, abdomen and pelvis was obtained. Axial MIP volume rendering provided. Sagittal and coronal reformatted images w ere obtained. This CT examination was performed using dose optimization techniques as appropriate, various ly including the following: *Automated exposure control *Adjustment of mA an d/or kV according to patient size (this includes techniques or standardized protocols for targeted exams where dose is matched to indication/reason for exam; i.e. extremities or head) *Use of iterative reconstruction technique DLP: 790 mGy-cm FINDINGS: LUNGS: Moderate centrilobular emphysema. No pneumothorax. No hemopneumothorax. Peripheral areas of pleural-parenchymal scarring. MEDIASTINUM: The hea rt is not enlarged. There is no pericardial effusion or pericard ial thickening. Aorta and pulmonary arteries are not dilated. There a re no pathologically enlarged mediastinal or hilar lymph nodes. AXILLA: No lymphadenopathy. LIVER, GALLBLADDER, AND BILIARY TREE: The liver is normal in size, shape, and attenuati on. There are no focal hepatic lesions. There is no intra or extrahepati c bile duct dilation. The gallbladder is unremarkable with no evidence of radiopaque gallstones, gallbladder wall thickening, or obvious pericholecystic inflammatory changes. PANCREAS: Unremarkable SPLEEN: Unremarkable ADRENAL GLANDS: Unremarkable KIDNEYS AND URETERS: The kidneys are normal in size. 3 mm stones in the right upper pole. No hydronephrosis. BLADDER: Unremarkable GASTROINTESTINAL TRA CT: The large and small bowel are normal in caliber. Moderate st ool burden. ABDOMINAL WALL: No significant hernia is appreciated. LYMPH NODES: Normal PERITONEUM: No free intraperitoneal fluid or air. 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 Extensive atherosclerotic calcification PELVIC VISCERA: Unremarkable OSSEOUS STRUCTURES: Multilevel degenerative changes of the lumbar spine. C T/CT abdomen pelvis wo IV con IMPRESSION: 1. No acute traumati c findings in the chest, abdomen, or pelvis. 2. Moderate centrilobular emphysema. 3. 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 Electronically yolanda d by: Spencer Layne MD 09/28/2024 03:39 PM [facility] Dictated By: Spencer Layne MD Signed By: <Electronically signed by Spencer Layne MD in OV> 09/28/24 1539 DD/ 1419 TD/TT: 09/28/24 1419 [address]: XR ankle RT 2V Reviewed date:09/29/2024 10:01:05 AM Interpretation: Performing Lab: Notes/Report: [address] [address] XRay Report Signed Patient: Too Young MR#: [id number] : 1935 Acct:[id number] Age/Sex: 89 / M ADM Date: 09/28/24 Loc: HO.ED Attending Dr: Ordering Physician: Daniel Willett Date of Service: 09/28/24 Procedure(s): XR ankle RT 2V Accession Number(s): [id number] cc: Daniel Willett; Chico Bojorquez MD EXAMINATION: XR RIGHT ANKLE XR RIGHT FOOT CLINICAL INFORMATION: Fall. COMPARISON: None available. TECHNIQUE: Ankle 3 views. Foot 3 views. FINDINGS: Ankle: Alignment is anatomic. Ankle mortise is maintained. No acute fracture is seen of the visualized tibia or fibula. No talar OCD. No acute fracture is otherwise identified. Anterior calcaneal process appears intact. Plantar calcaneal spur. Dystrophic/vascular calcification in the tibial posterior soft tissue. Foot: Bony alignment is anatomic. No visible acute fracture or dislocation. Severe first MTP arthritis. No erosions. No suspicious soft tissue calcification. Mild dorsal soft tissue prominence. XR/XR ankle RT 2V IMPRESSION: No radiographic evidence of acute fracture. If persistent clinical concern/symptoms, consider follow-up imaging. Severe first MTP arthritis. Electronically signed by: Daniel Barahona MD 09/28/2024 05:27 PM [facility] Dictated By: Daniel Barahona MD Signed By: <Electronically signed by Daniel Barahona MD in OV> 09/28/24 1727 DD/ 1241 TD/TT: 09/28/24 1410 [address]: GERARD [address] [address] XRay Report Signed Patient: Ortega Young MR#: [id number] : 1935 Acct:[id number] Age/Sex: 89 / M ADM Date: 09/28/24 Loc: HO.ED Attending Dr: Ordering Physician: Daniel Willett Date of Service: 09/28/24 Procedure(s): XR ank le RT 2V Accession Number(s): [id number] cc: Daniel Willett; Chico Bojorquez MD EXAMINATION: XR RIGHT ANKLE XR RIGHT FOOT CLINICAL INFORMATION: Fall. COMPARISON: None available. TECHNIQUE: Ankle 3 views. Foot 3 views. FINDINGS: Ankle: Alignment is anatomic. Ankle mortise is maintained. No acute fracture is seen of the visualized tibia or fibula. No talar OCD. No acute fracture is otherwise identified. Anterior calcaneal process appears intact. Plan tar calcaneal spur. Dystrophic/vascular calcification in the tibial posterior soft tissue. Foot: Bony alignment is anatomic. No visible acute fracture or dislocation. Severe first MTP arthritis. No erosions. No suspicious soft tissue calcification. Mild dorsal soft tissue prominence. X R/XR ankle RT 2V IMPRESSION: No radiographic evid ence of acute fracture. If persistent clinic al concern/symptoms, consider follow-up imaging. Severe first MTP arthritis. Electronically yolanda d by: Daniel Barahona MD 09/28/2024 05:27 PM [facility] Dictated By: Daniel Barahona MD Signed By: <Electronically signed by Daniel Barahona MD in OV> 09/28/24 1727 DD/ 1241 TD/TT: 09/28/24 1410 [address]: GERARD XR shoulder RT min 2V Reviewed date:09/29/2024 08:22:34 AM Interpretation: Performing Lab: Notes/Report: [address] [address] XRay Report Signed Patient: Too Young MR#: [id number] : 1935 Acct:[id number] Age/Sex: 89 / M ADM Date: 09/28/24 Loc: HO.ED Attending Dr: Ordering Physician: Blessing Murphy DO Date of Service: 09/28/24 Procedure(s): XR shoulder RT min 2V Accession Number(s): [id number] cc: [place] Bojorquez MD; Blessing Murphy DO EXAMINATION: XR SHOULDER, RIGHT CLINICAL INFORMATION: pain COMPARISON: Right shoulder August 03, 2024 TECHNIQUE: Three views of the right shoulder. FINDINGS: No fracture. No dislocation. Superior subluxation of the humeral head impacting inferior surface of the acromion consistent with chronic rotator cuff tendon tear. Degenerative spurs of the inferior glenoid and the inferior humeral head at the articular surface. There is a corticated chronic osseous fragment measuring 5 mm adjacent to the acromion.. XR/XR shoulder RT min 2V IMPRESSION: 1. No acute abnormality. 2. Chronic rotator cuff tendon tear. 3. Degenerative changes of the glenohumeral joint. Electronically signed by: Jim Cordero MD 09/28/2024 08:17 PM EST Dictated By: Jim Cordero MD Signed By: <Electronically signed by Jim Cordero MD in OV> 09/28/242016 DD/ 1612 TD/TT: 09/28/24 1751 [address]: [place] [address] XRay Report Signed Patient: Ortega Young MR#: [id number] : 1935 Acct:[id number] Age/Sex: 89 / M ADM Date: 09/28/24 Loc: .ED Attending Dr: Ordering Physician: Blessing Murphy DO Date of Service: 09/28/24 Procedure(s): XR shoulder RT min 2V Accession Number(s): [id number] cc: [place] Bojorquez MD; Blessing Murphy DO EXAMINATION: XR SHOULDER, RIGHT CLINICAL INFORMATION: pain COMPARISON: Right shoulder Octob 2023 TECHNIQUE: Three views of the r ight shoulder. FINDINGS: No fracture. No dislocation. Superior subluxation of the humeral head impacting inferior surface of the acromion consistent with chronic rotator cuff tendon tear. Degenerative spurs o f the inferior glenoid and the inferior humeral head at the articula r surface. There is a corticate d chronic osseous fragment measuring 5 mm adjacent to the acromion.. X R/XR shoulder RT min 2V IMPRESSION: 1. No acute abnormality. 2. Chronic rotator c uff tendon tear. 3. Degenerative hills ges of the glenohumeral joint. Electronically yolanda d by: Jim Cordero MD 09/28/2024 08:17 PM EST RP Dictated By: Debra Cordero MD Signed By: <Electronically signed by Jim Cordero MD in OV> 09/28/242016 DD/ 1612 TD/TT: 09/28/24 1751 [address]: GEOVANNI XR foot RT 2V Reviewed date:09/29/2024 08:24:09 AM Interpretation: Performing Lab: Notes/Report: [address] [address] XRay Report Signed Patient: Too Young MR#: [id number] : 1935 Acct:[id number] Age/Sex: 89 / M ADM Date: 09/28/24 Loc: HO.ED Attending Dr: Ordering Physician: Daniel Willett Date of Service: 09/28/24 Procedure(s): XR foot RT 2V Accession Number(s): [id number] cc: Daniel Willett; Chico Bojorquez MD EXAMINATION: XR RIGHT ANKLE XR RIGHT FOOT CLINICAL INFORMATION: Fall. COMPARISON: None available. TECHNIQUE: Ankle 3 views. Foot 3 views. FINDINGS: Ankle: Alignment is anatomic. Ankle mortise is maintained. No acute fracture is seen of the visualized tibia or fibula. No talar OCD. No acute fracture is otherwise identified. Anterior calcaneal process appears intact. Plantar calcaneal spur. Dystrophic/vascular calcification in the tibial posterior soft tissue. Foot: Bony alignment is anatomic. No visible acute fracture or dislocation. Severe first MTP arthritis. No erosions. No suspicious soft tissue calcification. Mild dorsal soft tissue prominence. XR/XR foot RT 2V IMPRESSION: No radiographic evidence of acute fracture. If persistent clinical concern/symptoms, consider follow-up imaging. Severe first MTP arthritis. Electronically signed by: Daniel Barahona MD 09/28/2024 05:27 PM EST RP Dictated By: Daniel Barahona MD Signed By: <Electronically signed by Daniel Barahona MD in OV> 09/28/241726 DD/ 1400 TD/TT: 09/28/24 1410 [address]nut: GERARD [address] [address] XRay Report Signed Patient: Ortega Young MR#: [id number] : 1935 Acct:[id number] Age/Sex: 89 / M ADM Date: 09/28/24 Loc: HO.ED Attending Dr: Ordering Physician: Daniel Willett Date of Service: 09/28/24 Procedure(s): XR jeannine t RT 2V Accession Number(s): [id number] cc: Daniel Willett; Chico Bojorquez MD EXAMINATION: XR RIGHT ANKLE XR RIGHT FOOT CLINICAL INFORMATION: Fall. COMPARISON: None available. TECHNIQUE: Ankle 3 views. Foot 3 views. FINDINGS: Ankle: Alignment is anatomic. Ankle mortise is maintained. No acute fracture is seen of the visualized tibia or fibula. No talar OCD. No acute fracture is otherwise identified. Anterior calcaneal process appears intact. Plan tar calcaneal spur. Dystrophic/vascular calcification in the tibial posterior soft tissue. Foot: Bony alignment is anatomic. No visible acute fracture or dislocation. Severe first MTP arthritis. No erosions. No suspicious soft tissue calcification. Mild dorsal soft tissue prominence. X R/XR foot RT 2V IMPRESSION: No radiographic evid ence of acute fracture. If persistent clinic al concern/symptoms, consider follow-up imaging. Severe first MTP arthritis. Electronically yolanda d by: Daniel Barahona MD 09/28/2024 05:27 PM EST Dictated By: Daniel Barahona MD Signed By: <Electronically signed by Daniel Barahona MD in OV> 09/28/24 1727 DD/ 1400 TD/TT: 09/28/24 1410 [address] D[address]nut: GERARD Venous Blood Gases - POC Reviewed date:09/29/2024 08:18:19 AM Interpretation: Performing Lab:[facility], [address] [place] [phone] Notes/Report: VBG pH 7.39 7.32-7.43 METER #: [id number] additional_comment: Roly er[place] VBG pCO2 44 METER #: [id number] additional_comment: Roly albanom VBG pO2 47 METER #: [id number] additional_comment: Roly albanom VBG Base Excess 2.3 METER #: [id number] additional_comment: Cb albanom VBG HCO3 27 22-26 mmol/L METER #: [id number] additional_comment: Cb albanom VBG O2 % Saturation 68.0 METER #: [id number] additional_comment: Roly elaine Troponin-I High Sensitivity Reviewed date:09/29/2024 08:20:33 AM Interpretation: Performing Lab:[facility], [address] [place] [phone] Notes/Report: Troponin-I High Sensitivity 23.1 <3.5-35.0 ng/L The Rose high sensitivity Troponin-I results should be used in conjunction with other diagnostic information such as ECG, clinical observations and information, and patient symptoms to aid in the diagnosis of [place]. Complete Blood Count Auto Di ff Reviewed date:09/29/2024 08:18:57 AM Interpretation: Performing Lab:[facility], [address] [place] [phone] Notes/Report: White Blood Count 9.8 4.8-10.8 X10*3/uL Red Blood Count 4.68 4.60-5.80 X10*6/uL Hemoglobin 8.6 14.0-18.0 g/dl Hematocrit 30.3 42.0-52.0 % Mean Corpuscular Volume 64.7 80.0-98.0 fL Mean Corpuscular Hemoglobin 18.4 27.0-33.0 pg Mean Corpuscular HGB Conc 28.4 31.0-36.0 g/dl Red Cell Distribution Width 23.0 11.0-16.0 % Platelet Count 349 160-400 X10*3/uL Mean Platelet Volume 9.9 9.4-12.4 fL Neutrophils Percent Auto 91.5 45-73 % Imm Gran Pct Auto 0.6 0.0-0.4 % Lymphocytes Percent Auto 4.1 20-40 % Monocytes Percent Auto 3.7 2-11 % Eosinophils Percent Auto 0.0 0-4 % Basophils Percent Auto 0.1 0-2 % NRBC Pct Auto 0.0 0.0-0.2 /100WBC Neutrophils Absolute Auto 9.0 2.0-8.3 x10*3/uL Imm Gran Abs Auto 0.06 0.00-0.03 X10*3/uL Lymphocytes Absolute Auto 0.4 1.2-4.9 X10*3/uL Monocytes Absolute Auto 0.4 0.1-1.2 X10*3/uL Eosinophils Absolute Auto 0.0 0.0-0.4 X10*3/uL Basophils Absolute Auto 0.0 0.0-0.2 X10*3/uL NRBC Abs Auto 0.000 0.0-0.012 X10*3/uL White Blood Count 9.8 4.8-10.8 X10*3/uL Red Blood Count 4.68 4.60-5.80 X10*6/uL Hemoglobin 8.6 14.0-18.0 g/dl Hematocrit 30.3 42.0-52.0 % Mean Corpuscular Volume 64.7 80.0-98.0 fL Mean Corpuscular Hemoglobin 18.4 27.0-33.0 pg Mean Corpuscular HGB Conc 28.4 31.0-36.0 g/dl Red Cell Distribution Width 23.0 11.0-16.0 % Platelet Count 349 160-400 X10*3/uL Mean Platelet Volume 9.9 9.4-12.4 fL Neutrophils Percent Auto 91.5 45-73 % Imm Gran Pct Auto 0.6 0.0-0.4 % Lymphocytes Percent Auto 4.1 20-40 % Monocytes Percent Auto 3.7 2-11 % Eosinophils Percent Auto 0.0 0-4 % Basophils Percent Auto 0.1 0-2 % NRBC Pct Auto 0.0 0.0-0.2 /100WBC Neutrophils Absolute Auto 9.0 2.0-8.3 x10*3/uL Imm Gran Abs Auto 0.06 0.00-0.03 X10*3/uL Lymphocytes Absolute Auto 0.4 1.2-4.9 X10*3/uL Monocytes Absolute Auto 0.4 0.1-1.2 X10*3/uL Eosinophils Absolute Auto 0.0 0.0-0.4 X10*3/uL Basophils Absolute Auto 0.0 0.0-0.2 X10*3/uL NRBC Abs Auto 0.000 0.0-0.012 X10*3/uL CO RRECTED REPORT CO RRECTED REPORT Basic Metabolic Panel Reviewed date:09/29/2024 08:19:17 AM Interpretation: Performing Lab:[address] [address] Notes/Report: Sodium 140 135-145 mmol/L Potassium 4.1 3.3-5.1 mmol/L Chloride 107 96-108 mmol/L Carbon Dioxide 19 22-29 mmol/L Anion Gap 18 12-20 Blood Urea Nitrogen 31 9-16 mg/dL Creatinine 1.66 0.5-1.4 mg/dL Creatinine Clr Calc Pharmacy 26.6 eGFR (calculated from the MDRD study equation) and eCrCl (calculated from the Cockcroft-Gault equation) are based on different parameters and may not yield comparable results. If eCrCl result is absurd, please check patient's height/weight. Estimated Glomerular Filt Rate 39 Chronic Kidney Disease: Estimated GFR < 60 mL/min/1.73m2 Severe Kidney Disease: Estimated GFR < 15 mL/min/1.73m2 Glucose Random 178 60-115 mg/dL Calcium 9.1 8.4-10.2 mg/dL Magnesium Reviewed date:09/29/2024 08:18:28 AM Interpretation: Performing Lab:[address] [address] Notes/Report: Magnesium 2.2 1.6-2.6 mg/dL SLIDE REVIEW Reviewed date:09/29/2024 08:17:46 AM Interpretation: Performing Lab:[place] [address] [address] Notes/Report: SLIDE REVIEW VERIFIED UA CC w/rflx Micro + Cult Reviewed date:09/29/2024 12:32:01 PM Interpretation: Performing Lab:[facility], [address] [place] [phone] Notes/Report: [id number] Urine, Clean Catch Color Urine Yellow Appearance Urine Clear PH 5.5 5.0-9.0 Glucose Urine UA Negative Negative mg/dL Urine Blood Negative Negative Specific [place] - Urine >= 1.030 1.005-1.025 Urine Protein Trace Neg-Trace mg/dL Urine Ketones Trace Negative mg/dL Nitrite Urine Negative Negative Leukocyte Esterase Urine Negative Negative SLIDE REVIEW Reviewed date:12/30/2024 07:04:25 PM Interpretation: Performing Lab:[address] [address] Notes/Report: SLIDE REVIEW VERIFIED SLIDE REVIEW Reviewed date:01/05/2025 11:56:11 AM Interpretation: Performing Lab:[facility], [address] [place] [phone] Notes/Report: SLIDE REVIEW VERIFIED CT chest wo con Reviewed date:03/25/2025 01:39:55 PM Interpretation:order entered in system Performing Lab: Notes/Report: [address] [address] [address] Scan Report Signed Patient: Too Young MR#: [id number] : 1935 Acct:[id number] Age/Sex: 89 / M ADM Date: 03/23/25 Loc: HO.CT Attending Dr: Chico Bojorquez MD Ordering Physician: Chico Bojorquez MD Date of Service: 03/23/25 Procedure(s): CT chest wo IV con Accession Number(s): [id number] cc: Chico Bojorquez MD Report Number: [id number]: Total DLP = 407.00 mGy-cm EXAMINATION: CT CHEST WITHOUT CONTRAST CLINICAL INFORMATION: Pulmonary nodules COMPARISON: September 28, 2024 TECHNIQUE: Multidetector volumetric CT imaging of the chest was done. Axial MIP volume rendering provided. Sagittal and coronal reformatted images were obtained. This CT examination was performed using dose optimization techniques as appropriate, variously including the following: *Automated exposure control *Adjustment of mA and/or kV according to patient size (this includes techniques or standardized protocols for targeted exams where dose is matched to indication/reason for exam; i.e. extremities or head) *Use of iterative reconstruction technique DLP: 407 mGY*cm FINDINGS: LUNGS: The lungs are expanded. There are multifocal centrilobular lucencies. There is honeycombing in the lung apex and peripheral lung bases. There is a nodular cluster in the posterior lower third region of the left lower lobe contacting pleura. Nodular cluster (for example series 7 image 91/150) measures approximately 16 x 11 x 10 mm (CC by AP by transverse). Previous study, this area was mostly groundglass density. It appears more solid on the current examination with less groundglass density. It is adjacent to an area where there was previous tenting of the pleura which is less pronounced today. There is a 3 mm lung nodule in the right middle lobe (84/150) MEDIASTINUM: There are a few small subcentimeter lymph nodes Heart size is within normal limits. There is moderate atherosclerotic calcifications in the aorta and great vessels. CORONARY ARTERY CALCIFICATION: Present PLEURA: There is no pleural effusion or pleural thickening. AXILLA: No lymphadenopathy. UPPER ABDOMEN: There are calcifications in the upper kidneys and could represent vascular calcifications and/or renal calculi. Largest is on the left measuring 2 x 7 mm. OSSEOUS STRUCTURES: There are bridging syndesmophytes in the mid and upper thoracic spine and osseous bridging of the spinous process tips. There are nonbridging anterior osteophytes are large and protruding in the lower thoracic spine with disc space narrowing and vacuum phenomena. There are changes from shoulder replacement on the left that is partially imaged. There is advanced degenerative change in the right shoulder joint with sclerosis, osteophytes, and subchondral cystic change. CT/CT chest wo IV con IMPRESSION: Indeterminate suspicious nodular cluster in the posterior left lower lobe. On the prior exam, there was a groundglass density in this region. The area now appears more nodular and solid, consider consultation for biopsy or PET/CT imaging. Moderate centrilobular emphysema. 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 Fleischner guidelines were followed. Electronically signed by: Alberto Cazares MD 03/23/2025 05:24 PM EDT RP Dictated By: Alberto Cazares MD Signed By: <Electronically signed by Alberto Cazares MD in OV> 03/23/25 1724 DD/ 1317 TD/TT: 03/23/25 1334 [address]: [place] [address] CT Scan Report Signed Patient: Ortega Young MR#: [id number] : 1935 Acct:[id number] Age/Sex: 89 / M ADM Date: 03/23/25 Loc: HO.CT Attending Dr: Chico Bojorquez MD Ordering Physician: Chico Bojorquez MD Date of Service: 03/23/25 Procedure(s): CT shadi st wo IV con Accession Number(s): [id number] cc: Chico Bojorquez MD Report Number: [id number]: Total DLP = 407.00 mGy-cm EXAMINATION: CT CHEST WITHOUT CONTRAST CLINICAL INFORMATION: Pulmonary nodules COMPARISON: September 28, 2024 TECHNIQUE: Multidetector volume tric CT imaging of the chest was done. Axial MIP volume rendering provided. Sagittal and coronal reformatted images were obtained. This CT examination was performed using dose optimization techniques as appropriate, various ly including the following: *Automated exposure control *Adjustment of mA an d/or kV according to patient size (this includes techniques or standardized protocols for targeted exams where dose is matched to indication/reason for exam; i.e. extremities or head) *Use of iterative reconstruction technique DLP: 407 mGY*cm FINDINGS: LUNGS: The lungs are expanded. There are multifocal centrilobular lucencies. There is honeycombin g in the lung apex and peripheral lung bases. There is a nodular cluster in the posterior lower third region of the left lower lobe contacting pleura. Nodular cluster (for example series 7 image 91/150) measures approximately 16 x 1 1 x 10 mm (CC by AP by transverse). Previous study, this area was mostly groundglass density. It appears more maurice d on the current examination with less groundglass density. It is adjac ent to an area where there was previous tenting of the pleura which is less pronounced today. There is a 3 mm lung nodule in the right middle lobe (84/150) MEDIASTINUM: There a re a few small subcentimeter lymph nodes Heart size is within normal limits. There is moderate atherosclerotic calcifications in the aorta and great vessels. CORONARY ARTERY CALCIFICATION: Present PLEURA: There is no pleural effusion or pleural thickening. AXILLA: No lymphadenopathy. UPPER ABDOMEN: There are calcifications in the upper kidneys and could represent vascular calcifications and/or renal calculi. Largest is on the left measuring 2 x 7 mm. OSSEOUS STRUCTURES: There are bridging syndesmophytes in the mid and upper thoracic spine and osseous bridging of the spinous process tips. There are nonbridgin g anterior osteophytes are large and protruding in the lower thoracic s pine with disc space narrowing and vacuum phenomena. There are changes fr om shoulder replacement on the left that is partially imaged. There is advanced degenerative change in the right shoulder joint with sclerosis, osteophyt es, and subchondral cystic change. C T/CT chest wo IV con IMPRESSION: Indeterminate suspic ious nodular cluster in the posterior left lower lobe. On the prior e xam, there was a groundglass density in this region. The area now appears more nodular and solid, consider consultation for bio psy or PET/CT imaging. Moderate centrilobul ar emphysema. 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 Fleischner guideline s were followed. Electronically yolanda d by: Alberto Cazares MD 03/23/2025 05:24 PM EDT Dictated By: Alberto Cazares MD Signed By: <Electronically signed by Alberto Cazares MD in OV> 03/23/25 1724 DD/ 1317 TD/TT: 03/23/25 1334 [address]: EM suggs LT min 2V (Not yet reviewed by provider) Interpretation: Performing Lab: Notes/Report: [address] [address] XRay Report Signed Patient: Too Young MR#: [id number] : 1935 Acct:[id number] Age/Sex: 89 / M ADM Date: 09/08/25 Loc: HO.ED Attending Dr: Ordering Physician: Carin Leger Date of Service: 09/08/25 Procedure(s): XR finger LT min 2V Accession Number(s): [id number] cc: Chico Bojorquze MD; Carin Leger Reason for Exam: L finger deformity?ruptured tendon EXAMINATION: XR FINGER, LEFT CLINICAL INFORMATION: L finger deformity?ruptured tendon COMPARISON: None available. TECHNIQUE: 4 views of the left fifth digit. FINDINGS: There is no fracture, dislocation, or suspicious bone lesion. On the lateral projection, there is an extension deformity of the DIP joint of the fifth digit. Mild degenerative changes first MCP joint. Joint spaces are grossly preserved. Alignment is otherwise normal. No soft tissue abnormalities. XR/XR finger LT min 2V IMPRESSION: 1. Fifth digit demonstrating an extension deformity of the DIP joint of the fifth digit during flexion. No underlying fracture or dislocation. Electronically signed by: Saad Valle MD 09/08/2025 02:28 PM [facility] Dictated By: Saad Valle MD Signed By: <Electronically signed by Saad Valle MD in OV> 09/08/25 1428 DD/ 1413 TD/TT: 09/08/25 1423 [address]: [place] [address] XRay Report Signed Patient: Ortega Young MR#: [id number] : 1935 Acct:[id number] Age/Sex: 89 / M ADM Date: 09/08/25 Loc: HO.ED Attending Dr: Ordering Physician: Carin Leger Date of Service: 09/08/25 Procedure(s): XR fin devonte LT min 2V Accession Number(s): [id number] cc: Chico Bojorquez MD; Carin Leger Reason for Exam: L finger deformity?ruptured tendon EXAMINATION: XR FINGER, LEFT CLINICAL INFORMATION: L finger deformity?ruptured tendon COMPARISON: None available. TECHNIQUE: 4 views of the left fifth digit. FINDINGS: There is no fracture , dislocation, or suspicious bone lesion. On the lateral projection, there is an extension deformity of the DIP joint of the fifth digit. Mild degenerative changes first MCP joint. Joint spaces are grossly preserved. Alignment is otherwise normal. No soft tissue abnormalities. X R/XR finger LT min 2V IMPRESSION: 1. Fifth digit demonstrating an extension deformity of the DIP joint of the fifth digit duri ng flexion. No underlying fracture or dislocation. Electronically yolanda d by: Saad Valle MD 09/08/2025 02:28 PM EST Dictated By: Saad Valle MD Signed By: <Electronically signed by Saad Valle MD in OV> 09/08/25 1428 DD/ 1413 TD/TT: 09/08/25 142 [address]: Reason For Referral Reason Memory loss please e paresh Diagnosis 1 Memory loss (R41.3) Referral Organization Chico Bojorquez MD Referring Provider First Name Chico Referring Provider Last Name Reno Referring Provider Speciality Internal M edicine Referred Provider [facility] Notes Lenora Lopez 10:56:17 AM EST > info faxed Jessica Annette 10/16/2024 11:19:05 AM EST > pateint's family my not want him to have this done Referral Priority Routine Medications Medication SIG (Take, Route, Frequency, Duration) Notes Start Date End Date Status Omeprazole 20 MG TAKE 1 CAPSULE BY MO UTH EVERY DAY Orally Once a day for 90 days Active Aspirin 81 MG 1 tablet Orally Once a day for 30 day(s) Active Vitamin B50 Complex Orally once a day Active Ferrous Sulfate 325 (65 [...] TH EVERY DAY FOR 30 DAYS Active Ipratropium [place] 0.06 % 2 sprays in e ach nostril Nasally Three times a day Active Vitamin D 25 MCG (1000 UT) 1 tablet Oral ly Once a day Active Citalopram Hydrobromide 20 MG TAKE 1 TABLET BY MOUTH EVERY DAY for 90 Active Trelegy Ellipta 200-62.5-25 MCG/ACT 1 puff Inhalation Once a day Active Betamethasone Dipropionate 0.05 % 1 application Externally Once a day Active Immunizations Vaccine Route Administration Date Status Comme nts Flu Vaccine IM Intramuscular 09/17/2011 Administered Shingles IM Intramuscular 04/08/2012 Administered Flu Vaccine Unknown 07/23/2012 Administered Flu Vaccine Unknown 08/20/2012 Administered received at [facility] PPSV23 (Pnemovax) Unknown 09/23/2001 Administered Prevnar 13 IM Intramuscular 02/18/2014 Administered Fluarix Quadrivalent IM Intramuscular 07/06/2014 Administered PPSV23 (Pnemovax) IM Intramuscular 01/17/2015 Administered Fluarix Quadrivalent IM Intramuscular 08/02/2015 Administered Fluarix Quadrivalent IM Intramuscular 07/05/2016 Administered Fluarix Quadrivalent IM Intramuscular 08/27/2017 Administered Tetanus Unknown 07/07/2018 Administered Given at [facility] Department for injury to head Fluarix Quadrivalent IM Intramuscular 07/17/2018 Administered Fluarix Quadrivalent IM Intramuscular 07/13/2019 Administered PPSV23 (Pnemovax) IM Intramuscular 05/10/2020 Administered Influenza High Dose Unknown 07/27/[address] [facility] Covid Vaccine Unknown 11/27/[address] [facility] [address] Covid Vaccine Unknown 12/18/2020 Administered Pfizer Influenza High Dose IM Intramuscular 07/03/2021 Administer ed SARS-COV-2 Pfizer Unknown 07/17/2021 Administered SARS-COV-2 Pfizer Unknown 01/20/2022 Administered Fluarix Quadrivalent IM Intramuscular 07/12/2022 Administered SARS-COV-2 Pfizer Unknown 07/23/2022 Administered [facility] Influenza High Dose IM Intramuscular 08/11/2024 Administer ed Fluarix Quadrivalent - 150 IM Intramuscular 07/12/2025 Administered Shingrix Unknown 09/27/2020 Refused Flu Vaccine Unknown 07/06/2014 Pending Social History Tobacco Use: Social History Observation Description Date Details (start date - stop date) Former Smoker NA - NA Tobacco Use/Smoking Question Answer Notes Patient is a former smoker How long has it been since y ou last smoked? > 10 years Additional Findings: Tobacco Non-User Fo rmer smoker, currently using no form of tobacco Alcohol Screen Question Answer Notes Did you have a drink containing alcohol in the p ast year? 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) Active confirmed Problem 7523476 Panlobular emphy sema (J43.1) Active confirmed Problem 615768859837027 Primary osteoarthritis, 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 Problem 931793486 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) Active confirmed Problem 64707670 Essential hypert ension (I10) Active confirmed Problem 2212568 Psoriasis (L40.9) Active confirmed Problem 6161042 Prediabetes (R73.09) Active confirmed Problem 107626022 Chronic systolic congestive heart failure (I50.22) Active confirmed Problem Biochemically recurrent prostate cancer (disorder) (649246538991434) Rising PSA level (R97.2) Active confirmed Problem Memory loss (09149107) Memory loss (R41.3) Active confirmed Problem COPD - Chronic obstructive pulmonary disease (50356744) COPD (chronic obstructive pulmonary disease) (J44.9) Active confirmed Problem Dementia (95562821) Dementia (F03.90) Active co nfirmed Problem 36173984 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) Active confirmed Problem 25742403 Dysthymia (F34.1) Active confirmed Problem 77553047 Iron deficiency anemia, unspecified iron deficiency anemia type (D50.9) Active confirmed Problem 14881346 Claudication (I73.9) Active confirmed Problem 05336582 Asbestosis (J61) Active confirmed Problem 116500401 Pneumonia due to infectious organism, unspecified laterality, unspecified part of lung (J18.9) Active confirmed Problem 858027703 Pure hypercholesterolemia (E78.00) Active confirmed Problem 39419337 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) Active confirmed Problem 40246835889812812 Bilateral carp al tunnel syndrome (G56.03) Active confirmed Problem 920740811 Microcytic anemi a (D50.9) Active confirmed Problem Peripheral vascular disease (637255851) PVD (peripheral vascular disease) (I73.9) Active confirmed Problem 15235898 Left ventricular hypertrophy (I51.7) Active confirmed Problem 16380431 Glaucoma stage, unspecified (H40.9) Active confirmed Problem 965888469 Insomnia, unspec ified type (G47.00) Active confirmed Problem 556474057 Abnormal chest x ray (R93.89) Active confirmed Problem 4200174934907195 Recurrent prost ate cancer (C61) Active confirmed Problem 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 Problem Chronic rhinitis (12950538) Rhinitis, 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 Problem 123167582 Failure to thriv e in adult (R62.7) Active confirmed Vital Signs Blood pressure diastolic 62 mm Hg 07/12/2025 mahesh ght is up 5 pounds since 04-13-25 Height 68 in 07/12/2025 weight is up 5 pounds since 04-13-25 Blood pressure systolic 150 mm Hg 07/12/2025 weig ht is up 5 pounds since 04-13-25 Weight 142 lbs 07/12/2025 weight is up 5 pounds since 04-13-25 BMI 21.59 kg/m2 07/12/2025 weight is up 5 pounds since 04-13-25 Encounters Encounter Location Date Provider Diagnosis Chico Bojorquez MD [address] [place] [address] [id number] 01/05/2025 Chico Bojorquez Iron deficiency anemia, unspecified iron deficiency anemia type D50.9 Chico Bojorquez MD [address] [place] [address] [id number] 09/21/2024 Chico Bojorquez Essential hypertensi on I10 ; 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 and Weight loss, unintentional R63.4 Chico Bojorquez MD [address] [place] [address] [id number] 10/27/2024 Chico Bojorquez Essential hypertensi on I10 ; Chronic systolic congestive heart failure I50.22 and Iron deficiency anemia, unspecified iron deficiency anemia type D50.9 Chico Bojorquez MD [address] [place] [address] [id number] 12/29/2024 Chico Bojorquez Essential hypertensi on I10 ; Chronic systolic congestive heart failure I50.22 and Iron deficiency anemia, unspecified iron deficiency anemia type D50.9 Chico Bojorquez MD [address] [place] [address] [id number] 04/13/2025 Chico Bojorquez Prediabetes R73.09 ; Headache R51 and Dysthymia F34.1 Chico Bojorquez MD [address] [place] [address] [id number] 07/12/2025 Chico Bojorquez COPD (chronic obstructive pulmonary disease) J44.9 ; Essential hypertension I10 ; Rhinitis, atrophic J31.0 ; Dementia F03.90 and Encounter for administration of vaccine Z23 Chico Bojorquez MD [address] [place] [address] [id number] 09/10/2024 Chico Bojorquez MD [address] [place] [address] [id number] 09/10/2024 Chico Bojorquez MD [address] [place] [address] [id number] 09/14/2024 Chico Bojorquez MD [address] [place] [address] [id number] 09/28/2024 Chico Bojorquez MD [address] [place] [address] [id number] 10/02/2024 Chico Bojorquez MD [address] [place] [address] [id number] 10/05/2024 Chico Bojorquez MD [address] [place] [address] [id number] 10/29/2024 Chico Bojorquez MD [address] [place] [address] [id number] 12/31/2024 Chico Bojorquez MD [address] [place] [address] [id number] 01/14/2025 Chico Bojorquez MD [address] [place] [address] [id number] 01/18/2025 Chico Bojorquez MD [address] [place] [address] [id number] 03/26/2025 Chico Bojorquez Lung nodules R91.8 Chico Bojorquez MD [address] [place] [address] [id number] 03/30/2025 Chico Bojorquez Assessments Encounter Date Diagnosis (ICD Code) Assessment Notes Treatment Notes Treatment Clinical Notes Section Notes 01/05/2025 Iron deficiency anemia, unspecified iron deficiency anemia type (ICD-10 - D50.9) 09/21/2024 Essential hypertension (ICD-10 - I10) well controlled. 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 doesn't remember being in accidents. 10/27/2024 Essential hypertension (ICD-10 - I10) doing well 10/27/2024 Chronic systolic congestive heart failure (ICD-10 - I50.22) stable with no sign of chf, will continue current regiment 12/29/2024 Essential hypertension (ICD-10 - I10) well controlled, will continue to monitor 12/29/2024 Chronic systolic congestive heart failure (ICD-10 - I50.22) stable on treatment 04/13/2025 Prediabetes (ICD-10 - R73.09) stable, no need for medication at this time 04/13/2025 Headache (ICD-10 - R51) pending PET Scan 07/12/2025 COPD (chronic obstructive pulmonary disease) (ICD-10 - J44.9) pet scan negative. lungs clear 07/12/2025 Essential hypertension (ICD-10 - I10) doing well 03/26/2025 Lung nodules (ICD-10 - R91.8) 09/21/2024 Weight loss, unintentional (ICD-10 - R63.4) son doesn't feel that he would be a candidate for treatment even if there were something. 10/27/2024 Iron deficiency anemia, unspecified iron deficiency anemia type (ICD-10 - D50.9) is unable to get colonoscopy, will coontinue current regiment 12/29/2024 Iron deficiency anemia, unspecified iron deficiency anemia type (ICD-10 - D50.9) the family has been to 2 doctors to get clearance for a colonoscopy and both of them asked why they would put him through all that. also it would seem almost impossible to prep him and the anasthsia may make him mentally worse. 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 Plan Of Treatment Pending Test Test Name Order Date Electrocardiogram (EKG) 09/05/2017 CT ABD & PELVIS WITH CONTRAST 12/28/2022 NUC WHOLE BODY SCAN BONE 08/10/2022 XR CERVICAL SPINE 2-3 VIEWS 05/15/2022 XR CHEST 2 VIEW PA & LAT 01/10/2012 XR CHEST 2 VIEW PA & LAT 08/13/2013 XR CHEST 2 VIEW PA & LAT 02/16/2021 XR CHEST 2 VIEW PA & LAT 09/21/2014 XR CHEST 2 VIEW PA & LAT 08/20/2016 US CAROTID BILATERAL DOPPLER 10/23/2022 US CAROTID BILATERAL DOPPLER 09/27/[address] fusion skull to thigh 03/26/[address] fusion whole body 07/13/2024 XR finger LT min 2V 09/08/2025 XR chest 2V 01/24/2023 Future Test Test Name Order Date CT chest wo con 02/05/2023 CT chest wo con 12/19/2023 CT chest wo con 02/09/2025 Next Appt Details Provider Name:Chico moon, 01/11/2026 01:30:00 PM, [address] [place] [address] Drive, [address], [place], [place], [id number], Insurance Providers Payer Name Payer Address Payer Phone Subscriber Number Group Number Insured Name Patient Relationship to Insured Coverage Start Date Coverage End Date MEDIC[employer] [address] [place] [address] [id number] Hector Too Self - patient is the insured BLUE [employer] AND BLUE [facility] [address] [place], [place] [id number] Too Young Self - patient is the insured Medical (General) History Medical History History ICD Code prostate cancer hypertension depression colonoscopy - 03/01/2008 repe at in 5 years; colonoscopy 10/20/2013 no further testing needed per Dr. Richards needed clearance for colonoscopy. went and it was decided not to do anything Rotator cuff disorder
--- OUTSIDE RECORDS SUMMARY | 2025-09-09 03:15 | XMS_ITS | Clinical Summary ---
Author Organization [facility] Address [address] [place] [address] Care Team Providers Care Dyehouse Worker Name Role Phone Chico Bojorquez MD Primary Care Provider [phone]- [phone] Allergies No known active allergies Medications B Complex Vitamins (VITAMIN-B COMPLEX) Tab Take by mouth. Ac tive oxybutynin (DITROPAN XL) 15 MG 24 hr tablet Take by mouth. Active atorvastatin (LIPITOR) 10 MG tablet Take 1 tablet (10 mg total) by mouth daily. Active betamethasone dipropionate augmented (DIPROLENE-AF) 0.05 % cream Apply topically daily. 0 7 Active citalopram (CeleXA) 20 MG tablet Take 1 tablet (20 mg total) by mouth daily. 3 7 Active lisinopril (PRINIVIL,ZeSTRI L) 5 MG tablet Take 1 tablet (5 mg total) by mouth daily. Active sildenafil (VIAGRA) 100 MG tablet TAKE 1/2 OR 1 TABLET BY MOUTH NEEDED ONCE A DAY.. 1 Active fluticasone (FloNASE) 50 mcg/spray nasal spray SPRAY 1 SPRAY INTO EACH NOSTRIL ONCE DAILY 1 Active OxygenIndication s:Chronic obstructive pulmonary disease, unspecified COPD type (HCC) Please test patient for OCD, POC. Maintain saturation > or = 90% Dx J44.9 Length 99 1 supply 1 Active naproxen sodium (ALEVE) 220 mg tablet 1 tablet with food or milk as needed Active OMEprazole (PriLOSEC) 20 MG capsule 1 Active rOPINIRole (REQUIP) 1 MG tablet TAKE 1 TALET BY MOUTH 1 TO 3 HOURS BEFORE BEDTIME Active traMADol (ULTRAM) 50 MG tablet TAKE 1/2 TABLET BY MOUTH TWICE DAILY NEEDED FOR 7 DAYS 2 Active cholecalciferol (CHOLECALCIFEROL ) 25 MCG (1000 UT) tablet Take 1 tablet (1,000 Units total) by mouth daily. Active albuterol (PROVENTIL) (0.083%) 2.5 mg/3 mL nebulizer solutionIndicati ons:Chronic obstructive pulmonary disease, unspecified COPD type (HCC) Take 3 mL (2.5 mg total) by nebulization every 4 (four) hours as needed for wheezing or shortness of breath. 75 mL 3 2 Active Nebulizer MiscIndications: Chronic obstructive pulmonary disease, unspecified COPD type (HCC) Nebulizer with all supplies, mask version instead of nasal cannula for oxygen, [place] 99, dx:J44.9 1 each 2 Active ferrous sulfate 325 (65 FE) MG tablet Take 1 tablet (325 mg total) by mouth daily. 3 Active azithromycin (ZITHROMAX) 250 MG tablet TAKE 1 TABLET ORALLY DAILY FOR 4 DAYS START ON DAY 2 OF THERAPY 3 Active fluticasone-umec lidinium-vilante rol (TRELEGY ELLIPTA) 200-62.5-25 mcg/act inhalerIndicatio ns:Chronic obstructive pulmonary disease, unspecified COPD type (HCC) Inhale 1 puff daily. 90 each 3 3 Active albuterol (PROVENTIL HFA; VENTOLIN HFA) 108 (90 Base) MCG/ACT inhalerIndicatio ns:Chronic obstructive pulmonary disease, unspecified COPD type (HCC) INHALE 2 PUFFS EVERY 4 TO 6 HOURS NEEDED FOR SHORTNESS OF BREATH OR WHEEZING FOR 60 DAYS 1 each 3 3 Active Xarelto 2.5 MG tabletIndication s:Atherosclerosi s of [place] artery of both lower extremities with intermittent claudication TAKE 1 TABLET BY MOUTH TWICE A DAY 60 tablet 3 3 Active ipratropium (ATROVENT) 0.06 % nasal sprayIndications :Vasomotor rhinitis SPRAY 2 SPRAYS INTO BOTH NOSTRILS 3 TIMES A DAY 45 mL 3 5 Active Active Problems Problem Noted Date Diagnosed Date Atherosclerosis of ki[place] tribe ar riya of extremity with intermittent claudication 12/11/2021 PAD (peripheral artery disease) 05/04/2021 Chronic obstructive pulmonary disease 05/04/2021 Family History Medical History Relation Name Comments Heart defect Father manny of the h eart. Hypertension Mother cause [...] 75 11/30/2024 1:05 PM EST Temperature 37.1 C (98.8 F) 11/30/2024 1:05 PM EST Respiratory Rate 18 06/09/2018 2:44 PM EDT Oxygen Saturation 93% 11/30/2024 1:05 PM EST Inhaled Oxygen Concentration - - Weight 65.8 kg (145 lb) 11/30/2024 1:05 PM EST Height 172.7 cm (5' 8 ) 11/30/2024 1:05 PM EST Body Mass Index 22.05 11/30/2024 1:05 PM EST Plan of Treatment Health Maintenance Due Date Last Done Comments Advance Care Planning 1936 DTaP/Tdap/Td Vaccines (1 - Tdap) 1955 Pneumococcal Vaccines 50+ (1 of 2 - PCV) 1955 Zoster (Shingles) Vaccine (1 of 2) 1986 DXA Bone Density (Females,Ag es 65 and older) 2001 RSV Vaccine 50 years and old er and Patients (1 - 1-dose 75+ series) 2011 Influenza Vaccine 05/21/2025 COVID-19 Vaccine ( - 2023-2 5 season) 2025 Hepatitis B Vaccines Aged Out No long er eligible based on patient's age to complete this topic [place] [address] MEDICARE PART A & B [facility] Care Teams Dyehouse Worker Relationship Specialty Start Date End Date Chico Bojorquez MD [address] [place] [address] [place] [address] PCP - General Internal Medicine 12/04/17
--- OUTSIDE RECORDS SUMMARY | 2025-09-09 03:15 | XMS_ITS | Encounter Summary ---
Author Organization [facility] Address [address] [place] [address] Care Team Providers Care Ship Propeller Finisher Name Role Phone Chico Bojorquez MD Primary Care Provider [phone]- [phone] Encounter Details Date Type Department Care Team (Late st Contact Info) Description 10/31/2022 Scanned Document [facility] [address] [phone] Pulmonary, Scan Social History Tobacco Use Types [...] on filedocumented in this encounter Care Teams Ship Propeller Finisher Relationship Specialty Start Date End Date Chico Bojorquez MD [address] [place] [address] [place] [address] PCP - General Internal Medicine 12/04/17 documented as of this encounter
--- OUTSIDE RECORDS SUMMARY | 2025-09-09 03:15 | XMS_ITS | Clinical Summary ---
Author Organization [facility] Address [address] [facility] [address] [place] [address] Phone Care Team Providers Care Entry Level Sales Consultant Name Role Phone Pcp, Not Required Primary Care Provider Unavaila ble Allergies No known active allergies Medications LISINOPRIL ORAL Take by mouth. Active OXYBUTYNIN CHLORIDE ORAL Take by mouth. Active aspirin 81 mg chewable tablet Take 81 mg by mouth daily. Active ATORVASTATIN CALCIUM (ATORVASTATIN ORAL) Take by mouth. Active OMEPRAZOLE ORAL Take by mouth. Active VITAMIN B COMPLEX ORAL Take by mouth. 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 Not on ethan e 02/14/2023 Are you concerned about learning? Not on file 02/14/2023 No 02/14/2023 No 02/14/2023 Digital Access Answer Date Recorded No 03/18/2023 No 03/18/2023 No 03/18/2023 Reliable internet access at home? Not on file 03/18/2023 Device with a working camera? Not on file Sex and Gender Information Value Date Recorded Sex Assigned at Not on file Legal Sex Male 7:44 PM EST Gender Identity Not on file Sexual Orientation Not on file Last Filed Vital Signs Vital Sign Reading Time Taken Comments Blood Pressure 152/72 09/29/2012 9:34 AM EST Pulse - - Temperature 36.8 C (98.2 F) 04/01/2017 2:49 PM EDT Respiratory Rate - - Oxygen Saturation - - Inhaled Oxygen Concentration - - Weight 77.6 kg (171 lb) 04/01/2017 2:49 PM EDT Height 168.9 cm (5' 6.5 ) 04/01/2017 2:49 PM EDT Body Mass Index 27.19 04/01/2017 2:49 PM EDT Plan of Treatment Health Maintenance Due Date Last Done Comments CREATININE LEVEL 1935 POTASSIUM LEVEL 1935 DEPRESSION SCREENING 1948 ZOSTER VACCINES (1 of 2) 1986 RSV VACCINE (1 - 1-dose 75+ series) 2011 PNEUMOCOCCAL VACCINES (50+ years) (2 of 2 - PCV) 05/10/2021 05/10/2020 INFLUENZA VACCINE (#1) 2025 , 07/13/2019, 07/17/2018, Additional history exists COVID-19 VACCINE (3 - season) 2025 12/11/2020, 11/20/2020 Adult Td,Tdap Booster 07/07/2028 07/07/2018 HEPATITIS A VACCINES Aged Out No long er eligible based on patient's age to complete this topic HIB VACCINES Aged Out No longer eligi ble based on patient's age to complete this topic IPV VACCINES Aged Out No longer eligi ble based on patient's age to complete this topic MENINGOCOCCAL VACCINES (ACWY) Aged Out No longer eligible based on patient's age to complete this topic MENINGOCOCCAL VACCINES (B) Aged Out N o longer eligible based on patient's age to complete this topic Medical Devices Not on file Insurance MEDICARE PART A & B Member Subscriber Plan / Payer (Ef fective 2001-Present) Name:Too Young Member ID:[id number] Relation to Subscriber:Self Name:Too Young Subscriber ID:[id number] Payer ID:[id number] Group ID:Not on file Type:Medicare Address: [employer] [address] [place] [phone] [employer] MEDEX SUPPLEMENT MEDICARE PART A & B [employer] MED[employer] SUPPLEMENT MEDICARE PART A & B [employer] SUPPLEMENT MEDICARE PART A & B [employer] MEDEX SUPPLEMENT MEDICARE PART A & B [employer] MEDEX SUPPLEMENT MEDICARE PART A & B [employer] MEDEX SUPPLEMENT MEDICARE PART A & B [employer] MEDEX SUPPLEMENT MEDICARE PART A & B [employer] MEDEX SUPPLEMENT MEDICARE PART A & B [facility] MEDEX SUPPLEMENT Care Teams Entry Level Sales Consultant Relationship Specialty Start Date End Date Pcp, Not Required [address] [place] [id number] PCP - General 02/19/16 Additional Source Comments The information contained in this document represents components of the legal health record. It is not the complete legal health record.[facility]
--- OUTSIDE RECORDS SUMMARY | 2025-09-09 03:15 | XMS_ITS | Encounter Summary ---
Author Organization [facility] Address [address] [place] [address] Care Team Providers Care Test Analyst Name Role Phone Chico Bojorquez MD Primary Care Provider [phone] Encounter Details Date Type Department Care Team (Late st Contact Info) Description 08/19/2024 Scanned Document [facility] [address] [place] [phone] Lorie Mathew MD [address] [place] [address] [address] [place] [address] Social History Tobacco Use Types Packs/Day Years [...] on filedocumented in this encounter Care Teams Test Analyst Relationship Specialty Start Date End Date Chico Bojorquez MD [address] [place] [address] [place] [address] PCP - General Internal Medicine 12/04/17 documented as of this encounter
== END 2025-09-08 15:26 | disposition home or self-care (01) ==
PROVIDERS: Emergency Provider Emergency Medicine; PCP Internal Medicine
DX: M65.352 Trigger finger, left little finger (principal); I10 Essential (primary) hypertension; J44.9 Chronic obstructive pulmonary disease, unspecified; Z87.891 Personal history of nicotine dependence
CPT/HCPCS: 73140; 99282; 99283

== ENCOUNTER → 2025-09-08 13:43 | Outpatient (BNV) | payer MEDICARE, SELFPAY | PROVIDERS: Emergency Provider Emergency Medicine; PCP Internal Medicine; Visit Provider Radiology Diagnostic Radiology | DX: M21.242 Flexion deformity, left finger joints (principal) | CPT/HCPCS: 73140 ==

== ENCOUNTER 2025-09-28 08:40 | Outpatient (REF) | payer MEDICARE, SELFPAY ==
--- NOTE | ~2025-09-28 | XR_ITS ---
EXAMINATION: XR HAND, LEFT CLINICAL INFORMATION: M79.642 - Pain in left hand COMPARISON: Previous x-ray August 2025 TECHNIQUE: PA, lateral, and oblique views of the left hand. FINDINGS: No fracture or dislocation. Mild arthritis at the IP joints, first MCP and NURSING HOME joints with small osteophytes. There is extension of the DIP joint of the fifth finger with flexion similar to August 2025 exam. Joint spaces otherwise normal. Soft tissues are normal. XR/XR hand LT min 3V IMPRESSION: Mild degenerative changes. Extension of the DIP joint of the left fifth finger similar to August 2025 exam. Electronically signed by: Yvette Jolly MD 09/28/2025 10:54 AM EST
== END 2025-09-28 08:41 | disposition home or self-care (01) ==
LOC: HO.HOSX 08:40
PROVIDERS: Visit Provider Orthopaedic Surgery
DX: M20.022 Boutonniere deformity of left finger(s) (principal); R20.0 Anesthesia of skin; R20.2 Paresthesia of skin
CPT/HCPCS: 73130

== ENCOUNTER → 2025-09-28 09:17 | Outpatient (BNV) | payer MEDICARE, SELFPAY | PROVIDERS: Visit Provider Radiology Diagnostic Radiology | DX: M19.042 Primary osteoarthritis, left hand (principal) | CPT/HCPCS: 73130 ==

== ENCOUNTER 2025-09-28 09:21 | Outpatient (AMB) | payer MEDICARE, SELFPAY ==
--- NOTE | 2025-09-28 09:30 | A.OFFVIS_ITS ---
Intake Visit Reasons: ED F/U- 09/08/25 Left SF boutonniere deformity Intake Note: Too 89 yr old right hand dominant male who is retired, presents today with his daughter/HC proxy Maggie, for [place] [facility] [place] for his Left small finger boutonniere deformity. He was seen at [facility] [place] on 09[place]08[place]25 where xrays were taken, he was negative for fracture, patient was given a finger splint and referred to orthopedics for further evaluation. Today patient states he has pain when he tries to fully extend. It has some discoloration. He also has some numbness and tingling that started recently in both hands, mainly at night time. Allergies No Known Allergies Allergy (Unknown, Verified 09/28/25 09:36) NOT APPLICABLE HPI HPI ED F/U- 09/08/25 Left SF boutonniere deformity: Details: Too is an 89 year old right hand dominant man who presents for a left small finger boutonniere deformity. He is seen today with his daughter He reports hyperextension of the small finger DIP joint for ~1 month now. He was seen in the ED on 09/08/25 and given a finger splint, which he has been wearing. He complains of pain when trying to straighten his small finger. He denies any known injury, but his daughter reports he has some memory difficulties. He also complains of new numbness in hia bilateral hands. Symptoms intermittent and occasional, mostly at night. He denies any prior treatment options [facility] Medical History COPD (chronic obstructive pulmonary disease) PAD (peripheral artery disease) CHF (congestive heart failure) HTN (hypertension) Bilateral carotid artery disease Surgical History Hx of prostatectomy Hx of hernia repair Hx of rotator cuff surgery Family History Father CVD (cardiovascular disease) Mother No problems noted. Social History Household Members: None Housing: House Do you presently have visiting nurse or other home services: Yes Alcohol intake: former Patient Tobacco Use Status: Former Tobacco user Cigarette Packs Per Day: 2 Cigarettes Per Day: 40.0 service: No Review of Systems Const All systems reviewed & are unremarkable except as noted in HPI and below Physical Exam Const General: cooperative, healthy appearing and no acute distress Orientation/consciousness: patient oriented x3 HEENT Head: Yes normocephalic and Yes atraumatic Eyes EOM: EOMs intact bilaterally Resp Effort & Inspection: normal respiratory effort and able to speak in complete sentences Cardio Jugular venous distension: no JVD Skin General skin exam: turgor normal Rashes: no rashes Neuro General: patient oriented x3 Extrem Other: Evaluation of Left Upper Extremity: The patient is alert, oriented, and in no acute distress Neuro: Median, Ulnar, Radial nerves motor and sensory intact and sensation is normal to the tips of all digits Vascular: Cap refill brisk ROM: He cannot actively extend the small finger PIP joint. This can be passively extended and he can hold it extended, but not against resistance. Early boutonniere deformity with some hyperextension at the D IP joint. He does however have some active flexion at the D IP joint to about 30 degrees, when the PIP is held extended He can make a tight fist Skin: No lacerations or abrasions. General: No Ecchymosis. No Erythema or evidence of infection. Radiographs: 3 views of the Left hand were taken and viewed by me today in clinic. They show no fractures or dislocations. The lateral view show a boutonniere deformity, with the PIP flexed to 9- and the DIP extended to 40 degrtees. 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 Left small finger central slip rupture 2. Left small finger developing Boutonniere deformity I educated him & his daughter about this condition. Of note he has significant memory difficulties, his daughter says she will help remind him of his instructions. I discussed operative and non-operative treatment options at length with the patient and his daughter Given his difficulty with memory issues, I recommend surgery, and he is in agreement. He was given a finger splint to wear until his DOS, that allows for MPC & possibly DIP joint ROM but keeps the PIP joint immobilized The risks and benefits of operative treatment were discussed with the patient and the patient wishes to proceed with surgery. These risks include, but are not limited to risk of damage to blood vessels, nerves, tendons, infection, recurrence, incomplete relief of preoperative symptoms, persistent pain, possible need for further surgery and the risks associated with regional blocks and anesthesia. His memory issues will not allow for pin site care or to work on DIP joint ROM. He will be kept casted/splinted for 6 weeks following surgery The plan is to take the patient to the operating room sometime in the next few weeks for the following procedures: 1. Left small finger central slip repair, under local 2. Left small finger PIP joint CRPP, under local All of the preoperative paperwork including the consent was reviewed today. All the patient's questions were answered. The patient understands that they will be contacted by our clinical science consultant soon to schedule this procedure He denies Diabetes, blood thinners, kidney issues He has COPD, PAD, CHF, PVD, and uses supplemental oxygen. He denies blood thinners 2. Bilateral hand numbness Symptoms intermittent & occasional, worse at night I educated them about carpal & cubital tunnel syndrome I ordered a NCS to assess for peripheral nerve compression They will follow up when completed for review Scribed for Richelle Lopez MD by Andrés Wilde, hospital medical assistant, on 09/28/25 at 9:45 AM, EST. 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
== END 2025-09-28 10:46 | disposition home or self-care (01) ==
LOC: HO.HOS 09:21
PROVIDERS: PCP Internal Medicine; Visit Provider Orthopaedic Surgery
DX: M20.029 Boutonniere deformity of unspecified finger(s) (principal); M20.022 Boutonniere deformity of left finger(s); R20.0 Anesthesia of skin; R20.2 Paresthesia of skin; J44.9 Chronic obstructive pulmonary disease, unspecified
CPT/HCPCS: 99204